=== PATIENT | female | born 1940 | race Caucasian/White ===

== ENCOUNTER 2024-02-09 14:51 | Emergency (ER) | payer MEDICARE, BC, SELFPAY ==
--- NOTE | ~2024-02-09 | US_ITS ---
EXAMINATION: US venous doppler LE RT DATE: 02/09/2024 15:53 INDICATION: Right lower limb swelling TECHNIQUE: Grayscale ultrasound images without and with compression and Doppler ultrasound images of the right lower extremity veins were obtained. COMPARISON: None. FINDINGS: The visualized portions of right common femoral vein, profunda (deep) femoral vein, femoral vein, pop liteal vein and greater saphenous vein outflow are patent. The right posterior tibial and peroneal ve ins at the calf were unable to be visualized. IMPRESSION: 1. No deep venous thrombosis at or above the knee in the right lower limb. Veins at the right calf w ere unable to be visualized. Reviewed, dictated and finalized at location A. IMPRESSION: 1. No deep venous thrombosis at or above the knee in the right lower limb. Vei ns at the right calf were unable to be visualized.
[2024-02-09 14:52] VITALS: BP 147/56; PULSE 71; RESP 18; O2SAT 100
--- NOTE | 2024-02-09 15:20 | ED.EXTPRO ---
HPI - Extremity Problem General Chief complaint: Extremity Problem,Nontraumatic Stated complaint: dvt eval in right leg History of Present Illness HPI Narrative: 83-year-old female presents to the ED via EMS from local assisted living facility for right leg swelling for approximately 1 week. 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 She is on Eliquis which she has been taking as directed and has not missed any doses. She is reporting some pain to the lower leg. Denies chest pain or shortness of breath, fever. Related Data Allergies Allergy/AdvReac Type Severity Reaction Status Date / Time No Known Allergies Allergy Verified 02/09/24 15:07 Review of Systems Review of Systems: All systems reviewed & are unremarkable except as noted in HPI and below Exam Narrative: GENERAL: Well-appearing, well-nourished, and in no acute distress. HEAD: Normocephalic, atraumatic ENT: Nares clear, no rhinorrhea or epistaxis. Mucous membranes moist. NECK: Supple. CHEST: Clear to auscultation. No respiratory distress. HEART: Regular rate and rhythm. No murmur heard. Normal peripheral pulses. EXTREMITIES: 2+ pitting edema to the right lower extremity with overlying erythema. No warmth. Tenderness to palpation. Pain to calf. DP pulse dopplered And strong. Cap refill approximately 3 seconds. Sensation intact. SKIN: See extremity exam NEURO: No focal deficits. Alert and oriented x3 Course Vital Signs Vital signs: Vital Signs Pulse Rate 71 02/09/24 14:52 Respiratory Rate 18 02/09/24 14:52 Blood Pressure 147/56 H 02/09/24 14:52 Pulse Oximetry 100 02/09/24 14:52 Oxygen Delivery Room Air 02/09/24 14:52 Pulse Rate 71 02/09/24 14:52 Respiratory Rate 18 02/09/24 14:52 Blood Pressure 147/56 H 02/09/24 14:52 Pulse Oximetry 100 02/09/24 14:52 Oxygen Delivery Room Air 02/09/24 14:52 MDM - Extremity (Nontraumatic) MDM Narrative Medical decision making narrative: 83-year-old female with history of DVT on Eliquis presents to the emergency department for right lower extremity swelling and pain for 1 week. vital stable. Exam significant for 2+ pitting edema, erythema tenderness to the lower extremity. She is neurovascularly intact. Will obtain basic lab work and lower extremity duplex. She denies chest pain or shortness of breath. She is not tachycardic or hypoxic, no tachypnea concerning for PE. CBC without leukocytosis or anemia. Chemistries with creatinine of 1.6 BUN of 35, no prior for comparison. Lower extremity duplex shows no DVT or above the knee in the right lower limb. Veins to the right calf are unable to be visualized. Per chart that came from assisted living facility, she is on 2.5 mg Eliquis b.i.d.. This dose is presumably for indefinite anticoagulation given recurrent DVT to this extremity vs acute tx of DVT that is reduced due to her age and Cr. Regardless, she is on appropriate therapy if there were an acute DVT found today. Will start her on Keflex due to possibility of overlying cellulitis. Encouraged close follow-up with her PCP. Strict ED return precautions discussed. She is agreeable to plan verbalized understanding. Discharged in stable condition. Lab Data 02/09/24 15:53 02/09/24 15:53 Labs: Lab Results 02/09/24 Range/Units 15:53 WBC 5.4 (4.5-10.0) K/mm3 RBC 4.76 (4.2-5.4) M/mm3 Hgb 14.4 (12.0-15.0) g/dL Hct 45.1 (37.0-47.0) % MCV 94.7 (80-100) fl MCH 30.3 (26-34) pg MCHC 31.9 L (32-36) g/dl RDW 15.8 H (11.5-14.5) % Plt Count 181 (150-375) k/mm3 MPV 9.3 (7.4-10.4) fl Immature Gran % (Auto) 0.6 H (0-0.5) % Neut % (Auto) 67.0 (45.5-73.1) % Lymph % (Auto) 17.8 L (18.3-44.2) % [place] % (Auto) 10.2 H (2.6-8.5) % Eos % (Auto) 3.3 (0-4.4) % Baso % (Auto) 1.1 (0.2-1.2) % Lymph # (Auto) 0.96 (0.9-3.2) K/mm3 [place] # (Auto) 0.6 (0.1-0.6) K/mm3 Eos # (Auto) 0.2 (0-
[2024-02-09 16:12] LABS: Basophils Absolute Auto 0.1 K/mm3 (0.0-0.1); Basophils Percent Auto 1.1 % (0.2-1.2); Eosinophils Absolute Auto 0.2 K/mm3 (0-0.3); Eosinophils Percent Auto 3.3 % (0-4.4); Hematocrit 45.1 % (37.0-47.0); Hemoglobin 14.4 g/dL (12.0-15.0); Immature Granulocyte Absolute 0.03 K/mm3 (0.00-0.031); Immature Granulocyte Percent A 0.6 % (0-0.5); Lymphocytes Absolute Auto 0.96 K/mm3 (0.9-3.2); Lymphocytes Percent Auto 17.8 % (18.3-44.2); Mean Corpuscular HGB Conc 31.9 g/dl (32-36); Mean Corpuscular Hemoglobin 30.3 pg (26-34); Mean Corpuscular Volume 94.7 fl (80-100); Mean Platelet Volume 9.3 fl (7.4-10.4); Monocytes Absolute Auto 0.6 K/mm3 (0.1-0.6); Monocytes Percent Auto 10.2 % (2.6-8.5); Neutrophils Absolute Auto 3.6 K/mm3 (1.3-6.7); Platelet Count Result 181 k/mm3 (150-375); Red Blood Count 4.76 M/mm3 (4.2-5.4); Red Cell Distribution Width 15.8 % (11.5-14.5); White Blood Count 5.4 K/mm3 (4.5-10.0)
[2024-02-09 16:24] LABS: INR 1.2; Prothrombin Time 15.6 Seconds (11.1-14.7)
[2024-02-09 16:25] LABS: Partial Thromboplastin Time 28.6 Seconds (22.3-36.8)
[2024-02-09 16:31] LABS: Anion Gap 8 mmol/L (4-12); Blood Urea Nitrogen 35 mg/dL (7-17); Calcium 9.1 mg/dL (8.4-10.2); Carbon Dioxide 29 mmol/L (22-30); Chloride 102 mmol/L (98-107); Estimated Glomerular Filt Rate 31; Glucose 73 mg/dL (65-110); Potassium 4.2 mmol/L (3.4-5.0); Sodium 139 mmol/L (137-145)
[2024-02-09] MEDS: CEPHALEXIN 500 MG CAPSULE PO (17:02)
[2024-02-09 17:03] VITALS: BP 95/62; PULSE 69; RESP 18; TEMP 36.8; O2SAT 99
== END 2024-02-09 17:31 ==
PROVIDERS: Emergency Provider Physician Assistant
DX: L03.116 Cellulitis of left lower limb (principal); Z86.718 Personal history of other venous thrombosis and embolism; Z79.01 Long term (current) use of anticoagulants
CPT/HCPCS: 36415; 80048; 85025; 85610; 85730; 93971; 99284; A9270

== ENCOUNTER 2024-03-20 16:09 | Inpatient (IN) | payer MEDICARE, BC, SELFPAY ==
[2024-03-20] VITALS (13 sets, daily range): BP systolic 103–163; BP diastolic 39–130; PULSE 70–78; RESP 22–36; TEMP 36.4; O2SAT 68–100
--- NOTE | ~2024-03-20 | CT_ITS ---
EXAMINATION: CTA chest PE protocol DATE: 03/20/2024 20:01 FILM SPLICER INDICATION: Hypoxia TECHNIQUE: Computed tomographic angiography (CTA) of the chest was performed with 100 mL Omnipaque-35 0 intravenous contrast. The dose-length product was 1053.28 mGy-cm. Maximum intensity projection 3D-r econstructions of the aorta and other arteries were constructed by the technologist on a separate wor kstation. Examination is markedly limited secondary to significant motion artifact. COMPARISON: None. FINDINGS: No filling defect is identified within the main or proximal pulmonary arteries. Reflux of intravenous contrast is identified into the hepatic veins, findings suggesting congestive f ailure. The main pulmonary artery is enlarged, suggesting pulmonary hypertension. Global enlarged of the heart is present. No pericardial effusion is noted. Prosthetic mitral ring. Groundglass perialveolar infiltrates identified bilaterally. Small bilateral pleural effusions. Abnormal contour to the posterior right hemidiaphragm, demonstrating soft tissue attenuation for whic h an underlying mass cannot be excluded. This abnormality measures 17 mm. Follow-up examination once acute episode has resolved is recommended. Sternal wires and mediastinal clips are identified. Significant degenerative disease is identified within the thoracic spine with lateral ankylosis, like ly representing diffuse idiopathic skeletal hyperostosis (DISH). IMPRESSION: No pulmonary embolus. Findings suggesting congestive failure and pulmonary hypertension. Groundglass perialveolar infiltrates suggesting significant pulmonary vascular congestion. Indeterminate focus within the right lung base (possibly artifactual) for which follow-up once acute respiratory episode has resolved is recommended. Reviewed, dictated and finalized at location A. SPLICER
--- NOTE | ~2024-03-20 | XR_ITS ---
XR chest 1V portable Ordering provider: Antonina Ashley MD History: 83 years Female with . sob x few days, hypoxia . Comparison: None. FINDINGS: MEDIASTINUM: The cardiac silhouette is slightly enlarged. Postoperative changes. Prominent both nate. LUNGS: No effusions or pneumothorax. Bilateral interstitial and alveolar opacification suggestive of pulmonary edema versus pneumonitis. Follow-up and clinical correlation is advised. OTHER: No free air under the diaphragm. IMPRESSION: Pulmonary edema versus pneumonia. Follow-up and clinical correlation advised. Reviewed, dictated and finalized at location A. R BEAM MACHINE OPERATOR
--- NOTE | ~2024-03-20 | XR_ITS ---
Portable chest x-ray Comparison: 03/20/2024 Clinical History: Infiltrate Findings: There is improvement in patchy haziness since prior exam. Questionable underlying COPD. C ardiomediastinal silhouette is stable, with loop recorder. Bones and soft tissues are unremarkable. Impression: Interval improvement in patchy pulmonary haziness. Possible underlying COPD. Stable cardiomegaly, with a loop recorder. Reviewed, dictated and finalized at location M. STARTER Impression: Interval improvement in patchy pulmonary haziness. Possible underlying COPD. Stable cardiomegaly, with a loop recorder.
--- NOTE | 2024-03-20 16:24 | ECG_ITS ---
Test Date: 2024-03-20 16:27:34 Measurements Intervals [place] Rate: 69 P: 0 MN: 0 QRS: -78 QRSD: 209 T: 66 QT: 462 QTc: 498 Interpretive Statements ELECTRONIC VENTRICULAR PACEMAKER BASELINE ARTIFACT- I, II, III, AVR, AVL, AVF, V1-V6 NO FURTHER INTERPRETATION IS POSSIBLE ATYPICAL ECG No previous ECG available for comparison Electronically Signed On 03-20-2024 17:00:10 SPEEDOMETER MECHANIC by Ziyad Babb D.O.
--- NOTE | 2024-03-20 16:38 | ED.SOB ---
HPI - SOB/Dyspnea General Chief Complaint: Shortness of Breath/Dyspnea Stated Complaint: increased SOB Time Seen by Provider: 03/20/24 16:33 History of Present Illness HPI Narrative: 83-year-old female presenting with shortness of breath. Patient has been increasingly short of breath over the last few days but it became worse today. States that she has been using her nebulizer with temporary improvement. Denies any pain. Related Data Allergies Allergy/AdvReac Type Severity Reaction Status Date / Time No Known Allergies Allergy Verified 02/09/24 15:07 Review of Systems Review of Systems: All systems reviewed & are unremarkable except as noted in HPI and below Exam Narrative: GENERAL: Ill-appearing, pleasant cooperative HEAD: Normocephalic, atraumatic. EYES: PERRLA and EOMI. ENT: grossly unremarkable NECK: Supple. CHEST: severely diminished breath sounds bilaterally, saturating 89% on 10 L non-rebreather HEART: Regular rate and rhythm ABDOMEN: Soft, nontender, nondistended EXTREMITIES: Normal range of motion SKIN: Warm, dry, no rash. NEURO: No focal deficits. Alert and oriented x3. PSYCH: Normal mood and affect. Course Vital Signs Vital signs: Vital Signs Pulse Rate 71 03/20/24 16:07 Respiratory Rate 34 H 03/20/24 16:07 Blood Pressure 140/63 03/20/24 16:07 Pulse Oximetry 96 03/20/24 16:07 Oxygen Delivery Nasal Cannula 03/20/24 16:07 Oxygen Flow Rate 7 03/20/24 16:07 Temperature 97.6 F 03/20/24 20:35 Pulse Rate 77 03/20/24 20:35 Respiratory Rate 25 H 03/20/24 20:35 Blood Pressure 117/39 L 03/20/24 20:35 Pulse Oximetry 100 03/20/24 20:35 Oxygen Delivery BiPAP 03/20/24 19:51 Oxygen Flow Rate 15 03/20/24 16:45 MDM - SOB/Dyspnea MDM Narrative Medical decision making narrative: 83-year-old female presenting with shortness of breath. Patient is hypoxic on arrival, saturating upper 80s on 10 L nasal cannula. EKG per my interpretation shows normal sinus rhythm, Ventricular pacemaker,no ST elevations or depressions. Workup is concerning for lactic acid of 2.2. Patient is positive for COVID-19. ProBNP is nearly 4000. Troponin is undetectable. CTA of the chest shows no evidence of pulmonary embolus. There are ground-glass opacities bilaterally as well as evidence of pulmonary hypertension. On re-evaluation, the patient is resting comfortably. She is comfortable on the BiPAP and denies current complaints. Discussed the workup and recommendation for admission, she is agreeable with this. Spoke with the advanced practice provider who feels patient can be admitted to IMU as she is improving on the BiPAP, her mental status is normal, she has no evidence of hypercarbia. He did request Decadron and remdesivir as well as another dose of Lasix which has all been ordered. spoke with the hospitalist who has accepted her for admission. Differential Diagnosis Differential diagnosis: Likely congestive heart failure, community acquired pneumonia, pulmonary embolism and other ( COVID) Medical Records Attestation: I reviewed the patient's medical records. Lab Data Attestation: I reviewed the patient's lab results. 03/20/24 16:47 03/20/24 16:47 Labs: Lab Results 03/20/24 03/20/24 03/20/24 Range/Units 16:47 16:56 20:07 WBC 9.3 (4.5-10.0) K/mm3 RBC 5.31 (4.2-5.4) M/mm3 Hgb 16.3 H (12.0-15.0) g/dL Hct 50.2 H (37.0-47.0) % MCV 94.5 (80-100) fl MCH 30.7 (26-34) pg MCHC 32.5 (32-36) g/dl RDW 15.0 H (11.5-14.5) % Plt Count 179 (150-375) k/mm3 MPV 9.6 (7.4-10.4) fl Immature Gran % (Auto) 0.3 (0-0.5) % Neut % (Auto) 84.3 H (45.5-73.1) % Lymph % (Auto) 7.3 L (18.3-44.2) % [place] % (Auto) 6.3 (2.6-8.5) % Eos % (Auto) 1.2 (0-4.4) % Baso % (Auto) 0.6 (0.2-1.2) % Lymph # (Auto) 0.68 L (0.9-3.2) K/mm3 [place] # (Auto) 0.6 (0.1-0.6) K/mm3 Eos # (Auto) 0.1 (0-0.3) K/mm3 Baso # (Auto) 0.1 (0.0-0.1) K/mm3 Abs Immat Gran (auto) 0.03 (0.00-0.031) K/mm3 Absolute Neuts (auto) 7.8 H (1.3-6.7) K/mm3 Absolute Nucleated RBC 0.000 (0.0-0.012) K/mm3 Nucleated RBC % 0.0 (0.0-0.2) % PT 15.3 H (11.1-14.7) Seconds INR 1.2 APTT 28.5 (22.3-36.8) Seconds Methemoglobin 0.3 (0-1.5) %THb Expiratory Pressure CMH2O Inspiratory Pressure CMH2O Sodium 141 (137-145) mmol/L Potassium 4.3 (3.4-5.0) mmol/L Chloride 99 (98-107) mmol/L Carbon Dioxide 32 H (22-30) mmol/L Anion Gap 10 (4-12) mmol/L BUN 27 H (7-17) mg/dL Creatinine 1.20 H (0.7-1.0) mg/dL Estim Creat Clear Calc 35 ml/min Estimated GFR 43 L (59 - ) Glucose 137 H (65-110) mg/dL Lactic Acid 2.1 H 2.2 H (0.7-2.0) mmol/L Calcium 9.8 (8.4-10.2) mg/dL Magnesium 2.2 (1.6-2.3) mg/dL Total Bilirubin 1.1 (0.2-1.3) mg/dL AST 51 H (14-36) U/L ALT 45 H (6-35) U/L Alkaline Phosphatase 106 (38-126) U/L Troponin I < 0.012 (0.000-0.034) ng/mL NT-Pro-B Natriuret Pep 3930 H (19.9-100) pg/mL Total Protein 8.0 (6.3-8.2) g/dL Albumin 4.3 (3.5-5.1) g/dL Influenza A (RT-PCR) Negative (Negative) Influenza B (RT-PCR) Negative (Negative) SARS-CoV-2 RNA (RT-PCR) Positive A (Negative) 03/20/24 03/20/24 Range/Units 20:21 21:08 WBC (4.5-10.0) K/mm3 RBC (4.2-5.4) M/mm3 Hgb (12.0-15.0) g/dL Hct (37.0-47.0) % MCV (80-100) fl MCH (26-34) pg MCHC (32-36) g/dl RDW (11.5-14.5) % Plt Count (150-375) k/mm3 MPV (7.4-10.4) fl Immature Gran % (Auto) (0-0.5) % Neut % (Auto) (45.5-73.1) % Lymph % (Auto) (18.3-44.2) % [place] % (Auto) (2.6-8.5) % Eos % (Auto) (0-4.4) % Baso % (Auto) (0.2-1.2) % Lymph # (Auto) (0.9-3.2) K/mm3 [place] # (Auto) (0.1-0.6) K/mm3 Eos # (Auto) (0-0.3) K/mm3 Baso # (Auto) (0.0-0.1) K/mm3 Abs Immat Gran (auto) (0.00-0.031) K/mm3 Absolute Neuts (auto) (1.3-6.7) K/mm3 Absolute Nucleated RBC (0.0-0.012) K/mm3 Nucleated RBC % (0.0-0.2) % PT (11.1-14.7) Seconds INR APTT (22.3-36.8) Seconds Methemoglobin 0.3 (0-1.5) %THb Expiratory Pressure 6 CMH2O Inspiratory Pressure 12 CMH2O Sodium (137-145) mmol/L Potassium (3.4-5.0) mmol/L Chloride (98-107) mmol/L Carbon Dioxide (22-30) mmol/L Anion Gap (4-12) mmol/L BUN (7-17) mg/dL Creatinine (0.7-1.0) mg/dL Estim Creat Clear Calc ml/min Estimated GFR (59 - ) Glucose (65-110) mg/dL Lactic Acid (0.7-2.0) mmol/L Calcium (8.4-10.2) mg/dL Magnesium (1.6-2.3) mg/dL Total Bilirubin (0.2-1.3) mg/dL AST (14-36) U/L ALT (6-35) U/L Alkaline Phosphatase (38-126) U/L Troponin I 0.013 (0.000-0.034) ng/mL NT-Pro-B Natriuret Pep (19.9-100) pg/mL Total Protein (6.3-8.2) g/dL Albumin (3.5-5.1) g/dL Influenza A (RT-PCR) (Negative) Influenza B (RT-PCR) (Negative) SARS-CoV-2 RNA (RT-PCR) (Negative) ABG Data ABG results: 03/20/24 03/20/24 16:56 21:08 Puncture Site Left radial Left radial ABG pH 7.493 H 7.461 H ABG pCO2 33.2 L 32.7 L ABG pO2 199.8 H 129.4 H ABG PO2/FiO2 Ratio 2.00 2.88 ABG HCO3 24.9 22.8 ABG O2 Saturation 99.5 98.8 ABG O2 Content 23.5 H 21.3 ABG Base Excess 2.3 -0.2 A-a Gradient 480.0 154.3 Oxyhemoglobin 98.4 97.7 Carboxyhemoglobin 1.0 1.0 Reduced Hemoglobin 0.3 1.0 Total Hemoglobin 16.7 15.4 O2 Delivery Device Non-rebreather mask Non-invasive vent O2 Liters/Min 15.0 Not Reportable Vent Rate Not Reportable FiO2 100 45 Imaging Data Radiologist's impression: ITS Impressions Chest X-Ray 03/20/24 16:47 IMPRESSION: Pulmonary edema versus pneumonia. Follow-up and clinical correlation advised. Chest CTA 03/20/24 20:01 IMPRESSION: No pulmonary embolus. Findings suggesting congestive failure and pulmonary hypertension. Groundglass perialveolar infiltrates suggesting significant pulmonary vascular congestion. Indeterminate focus within the right lung base (possibly artifactual) for which follow-up once acute respiratory episode has resolved is recommended. Critical Care Time Critical Care Time Critical Care Time: Yes Total Critical Care Time: 35 Discharge Plan Discharge Clinical Impression: COVID-19, Congestive heart failure, Acute hypoxic respiratory failure Patient Disposition: Still a Patient Condition: Serious
[2024-03-20 16:55] LABS: Basophils Absolute Auto 0.1 K/mm3 (0.0-0.1); Basophils Percent Auto 0.6 % (0.2-1.2); Eosinophils Absolute Auto 0.1 K/mm3 (0-0.3); Eosinophils Percent Auto 1.2 % (0-4.4); Hematocrit 50.2 % (37.0-47.0); Hemoglobin 16.3 g/dL (12.0-15.0); Immature Granulocyte Absolute 0.03 K/mm3 (0.00-0.031); Immature Granulocyte Percent A 0.3 % (0-0.5); Lymphocytes Absolute Auto 0.68 K/mm3 (0.9-3.2); Lymphocytes Percent Auto 7.3 % (18.3-44.2); Mean Corpuscular HGB Conc 32.5 g/dl (32-36); Mean Corpuscular Hemoglobin 30.7 pg (26-34); Mean Corpuscular Volume 94.5 fl (80-100); Mean Platelet Volume 9.6 fl (7.4-10.4); Monocytes Absolute Auto 0.6 K/mm3 (0.1-0.6); Monocytes Percent Auto 6.3 % (2.6-8.5); Neutrophils Absolute Auto 7.8 K/mm3 (1.3-6.7); Neutrophils Percent Auto 84.3 % (45.5-73.1); Platelet Count Result 179 k/mm3 (150-375); Red Blood Count 5.31 M/mm3 (4.2-5.4); White Blood Count 9.3 K/mm3 (4.5-10.0)
--- NOTE | 2024-03-20 17:04 | PC.NURSE ---
Asked patient if she had any family that we could call and let know that she is here in the ED. Patient said no, that it's too early they're not off of work yet. when asked again if we can call the family member she shook her head no.
--- NOTE | 2024-03-20 17:05 | PC.NURSE ---
report given to Sabiha NUGENT at bedside. patient alert and oriented, in respiratory distress.
[2024-03-20 17:07] LABS: Base Excess ABG 2.3 mEq/l (+/-2.0); Fractional Inspired Oxygen 100 %; HCO3 ABG 24.9 mEq/l (22.0-26.0); Methemoglobin ABG 0.3 %THb (0-1.5); Oxygen Content ABG 23.5 %vol (16.0-22.0); Oxygen Saturation ABG 99.5 % (95.0-100.0); Oxyhemoglobin 98.4 % THb (90.0-100.0); PCO2 ABG 33.2 mmHg (35.0-45.0); PO2 ABG 199.8 mmHg (80.0-100.0); Reduced Hemoglobin 0.3 %THb (0-5.0); Total Hemoglobin 16.7 g/dL (12.0-18.0); pH ABG 7.493 (7.350-7.450)
[2024-03-20 17:07] LABS: Lactic Acid Reflex 2.1 mmol/L (0.7-2.0); Magnesium 2.2 mg/dL (1.6-2.3)
[2024-03-20 17:08] LABS: Device NON-REBREATHER MASK; Modified Allen's Test Pass; Site Drawn LEFT RADIAL
[2024-03-20 17:15] LABS: INR 1.2; Prothrombin Time 15.3 Seconds (11.1-14.7)
[2024-03-20] MEDS: IPRATROPIUM BR 0.02% INH SOLN 0.5 MG/2.5 ML VIAL INHALATION (17:15)
[2024-03-20] MEDS: ALBUTEROL SULFATE NEB 2.5 MG/3 ML INH 10 MG INHALATION (17:15)
[2024-03-20 17:16] LABS: Partial Thromboplastin Time 28.5 Seconds (22.3-36.8)
[2024-03-20 17:17] LABS: Alanine Aminotransferase 45 U/L (6-35); Albumin Level 4.3 g/dL (3.5-5.1); Alkaline Phosphatase 106 U/L (38-126); Anion Gap 10 mmol/L (4-12); Aspartate Amino Transferase 51 U/L (14-36); Bilirubin,Total 1.1 mg/dL (0.2-1.3); Blood Urea Nitrogen 27 mg/dL (7-17); Calcium 9.8 mg/dL (8.4-10.2); Carbon Dioxide 32 mmol/L (22-30); Chloride 99 mmol/L (98-107); Estimated CRCL calculation 35 ml/min; Estimated Glomerular Filt Rate 43; Glucose 137 mg/dL (65-110); Potassium 4.3 mmol/L (3.4-5.0); Sodium 141 mmol/L (137-145)
[2024-03-20 17:20] LABS: NT Pro B Type Natriuretic Pept 3930 pg/mL (19.9-100); Troponin I < 0.012 ng/mL (0.000-0.034)
[2024-03-20 17:32] LABS: Influenza A QL RT-PCR Negative (Negative); Influenza B QL RT-PCR Negative (Negative); SARS-CoV-2 RNA PCR Positive (Negative)
--- NOTE | 2024-03-20 19:47 | ECG_ITS ---
Test Date: 2024-03-20 20:07:16 Measurements Intervals [place] Rate: 77 P: 0 TN: 0 QRS: -82 QRSD: 214 T: 86 QT: 473 QTc: 537 Interpretive Statements ELECTRONIC VENTRICULAR PACEMAKER BASELINE ARTIFACT- I, II, III, AVR, AVL, V1-V2 NO FURTHER INTERPRETATION IS POSSIBLE ATYPICAL ECG Compared to ECG 03/20/2024 16:27:34 No significant changes Electronically Signed On 03-21-2024 06:09:41 SPORTS MEDICINE PHYSICIAN by Ziyad Babb D.O.
[2024-03-20 19:53] LABS: Reflex Lactic Acid Yes or No Add Lactic
[2024-03-20 20:32] LABS: Lactic Acid 2.2 mmol/L (0.7-2.0)
[2024-03-20] MEDS: FUROSEMIDE INJ 40 MG/4 ML VIAL IV PUSH (20:33)
[2024-03-20 20:55] LABS: Troponin I 0.013 ng/mL (0.000-0.034)
[2024-03-20] MEDS: dexAMETHasone SOD PHOS INJ 10 MG/ML 1 ML VIAL IV PUSH (21:16)
[2024-03-20 21:33] LABS: Alveolar/Arterial O2 Gradient 154.3 mmHg; Base Excess ABG -0.2 mEq/l (+/-2.0); Fractional Inspired Oxygen 45 %; HCO3 ABG 22.8 mEq/l (22.0-26.0); Methemoglobin ABG 0.3 %THb (0-1.5); Oxygen Content ABG 21.3 %vol (16.0-22.0); Oxygen Saturation ABG 98.8 % (95.0-100.0); Oxyhemoglobin 97.7 % THb (90.0-100.0); PCO2 ABG 32.7 mmHg (35.0-45.0); PO2 ABG 129.4 mmHg (80.0-100.0); PO2 FiO2 Ratio Arterial Blood 2.88 %; Total Hemoglobin 15.4 g/dL (12.0-18.0); pH ABG 7.461 (7.350-7.450)
[2024-03-20 21:34] LABS: Device NON-INVASIVE VENT; Modified Allen's Test Pass; Non-Invasive Expiratory Pressure 6 CMH2O; Non-Invasive Inspiratory Pressure 12 CMH2O; Site Drawn LEFT RADIAL
[2024-03-20] MEDS: REMDESIVIR 200 MG/NS 250 ML 200 MG/250 ML BAG 250 MG IVPB (21:35)
--- NOTE | 2024-03-20 22:25 | P.HP_ITS ---
H&P: HPI History of Present Illness Date/Time: 03/20/24 22:25 Chief Complaint: sob Narrative: This is an 83-year-old female with past medical history significant for heart disease, atrial fibrillation, type diabetes mellitus, insulin-dependent. Patient was brought to the emergency room due to shortness of breath over the last several days progressively gotten worse. In emergency room patient was placed on BiPAP. Preliminary workup was significant for patient tested positive for COVID chest x-ray showed infiltrates. At the time of my visit patient is on BiPAP XR chest 1V portable Ordering provider: Antonina Ashley MD History: 83 years Female with . sob x few days, hypoxia . Comparison: None. FINDINGS: MEDIASTINUM: The cardiac silhouette is slightly enlarged. Postoperative changes. Prominent both nate. LUNGS: No effusions or pneumothorax. Bilateral interstitial and alveolar opacification suggestive of pulmonary edema versus pneumonitis. Follow-up and clinical correlation is advised. OTHER: No free air under the diaphragm. IMPRESSION: Pulmonary edema versus pneumonia. Follow-up and clinical correlation advised. EXAMINATION: CTA chest PE protocol DATE: 03/20/2024 20:01 DESK REPRESENTATIVE INDICATION: Hypoxia TECHNIQUE: Computed tomographic angiography (CTA) of the chest was performed with 100 mL Omnipaque-350 intravenous contrast. The dose-length product was 1053.28 mGy-cm. Maximum intensity projection 3D-reconstructions of the aorta and other arteries were constructed by the technologist on a separate workstation. Examination is markedly limited secondary to significant motion artifact. COMPARISON: None. FINDINGS: No filling defect is identified within the main or proximal pulmonary arteries. Reflux of intravenous contrast is identified into the hepatic veins, findings suggesting congestive failure. The main pulmonary artery is enlarged, suggesting pulmonary hypertension. Global enlarged of the heart is present. No pericardial effusion is noted. Prosthetic mitral ring. Groundglass perialveolar infiltrates identified bilaterally. Small bilateral pleural effusions. Abnormal contour to the posterior right hemidiaphragm, demonstrating soft tissue attenuation for which an underlying mass cannot be excluded. This abnormality measures 17 mm. Follow-up examination once acute episode has resolved is recommended. Sternal wires and mediastinal clips are identified. 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 IMPRESSION: No pulmonary embolus. Findings suggesting congestive failure and pulmonary hypertension. Groundglass perialveolar infiltrates suggesting significant pulmonary vascular congestion. Indeterminate focus within the right lung base (possibly artifactual) for which follow-up once acute respiratory episode has resolved is recommended. Review of Systems Review of Systems: ROS unobtainable: Yes other (on BiPAP) [facility] Social History Social History Smoking status: Never smoker Do You Feel Safe in your Home?: Yes Lack of Transportation: No Lack of Food: Never True Current Housing: I Have Housing Concerned About Future Housing: No Difficulty Paying Gas/Electric Bills: No Difficulty Paying for Meds: No Currently Unemployed: No Education: High School Diploma/GED Difficulty w/ Childcare or Family Care: No Spiritual care concerns: No Meds Home Medications and Allergies Home Medications Medication Instructions Recorded Confirmed Type apixaban 2.5 mg tablet (Eliquis) 2.5 mg PO BID 03/20/24 03/20/24 History atorvastatin 80 mg tablet 80 mg PO HS 03/20/24 03/20/24 History betamethasone dipropionate 0.05 % 1 applic topical DAILY 03/20/24 03/20/24 History lotion clopidogrel 75 mg tablet 75 mg PO DAILY 03/20/24 03/20/24 History diphenhydramine 25 2 tablet PO HS 03/20/24 03/20/24 History mg-acetaminophen 500 mg tablet (Acetaminophen PM) empagliflozin 25 mg tablet 25 mg PO DAILY 03/20/24 03/20/24 History (Jardiance) furosemide 20 mg tablet 20 mg PO DAILY 03/20/24 03/20/24 History insulin degludec 200 unit/mL (3 22 unit subcut DAILY 03/20/24 03/20/24 History mL) subcutaneous pen loratadine 10 mg tablet (Allergy 10 mg PO HS 03/20/24 03/20/24 History Relief (loratadine)) metoprolol succinate 100 mg 100 mg PO BID 03/20/24 03/20/24 History tablet,extended release 24 hr miscellaneous medical supply 03/20/24 03/20/24 History (Ocusoft Eyelid Cleansing Pads) xfkzhzkk-utxjaap-kmpp-lutein tablet 1 tablet PO DAILY 03/20/24 03/20/24 History multivitamin with minerals 1 tablet PO DAILY 03/20/24 03/20/24 History (Hair,Skin and Nails tablet) sacubitril 24 mg-valsartan 26 mg 1 tablet PO BID 03/20/24 03/20/24 History tablet (Entresto) Allergies Allergy/AdvReac Type Severity Reaction Status Date / Time No Known Allergies Allergy Verified 02/09/24 15:07 Vital Signs Vital Signs - 24 hr 03/20/24 16:07 03/20/24 16:25 03/20/24 16:25 Temperature Pulse Rate 71 71 Respiratory Rate 34 H 31 H Blood Pressure 140/63 140/63 Pulse Oximetry 96 99 88 L Oxygen Delivery Nasal Cannula Nasal Cannula Oxygen Flow Rate 7 10 03/20/24 16:40 03/20/24 16:45 03/20/24 17:21 Temperature Pulse Rate 70 Respiratory Rate 34 H Blood Pressure Pulse Oximetry 93 68 L 97 Oxygen Delivery High Flow Nasal Cannula Non-Rebreather Mask Oxygen Flow Rate 12 15 03/20/24 17:25 03/20/24 17:31 03/20/24 17:58 Temperature Pulse Rate 70 70 72 Respiratory Rate 34 H 36 H Blood Pressure 163/130 H Pulse Oximetry 97 Oxygen Delivery Oxygen Flow Rate 03/20/24 18:37 03/20/24 19:51 03/20/24 20:35 Temperature 97.6 F Pulse Rate 78 77 Respiratory Rate 28 H 25 H Blood Pressure 117/39 L Pulse Oximetry 100 94 100 Oxygen Delivery BiPAP BiPAP Oxygen Flow Rate Exam Narrative: Laying in a stretcher Const: General: comfortable, no acute distress, well developed, ill appearing acutely and average body habitus Nutritional Appearance: average body habitus Orientation/consciousness: patient obtunded and lethargic Other: Patient is on BiPAP HENMT: Head: normal to inspection, normocephalic and atraumatic Ears: hearing grossly normal bilaterally Face/Nose/Sinus: normal facial exam Face and sinus: normal facial exam Eyes: General: appearance normal, both eyes and all related structures Pupils: Equal, round and reactive pupils present EOM: EOMs intact bilaterally Neck: Neck: full ROM, no lymphadenopathy and no JVD Thyroid: thyroid normal Lymphatic: no lymphadenopathy noted Resp: Effort & Inspection: normal respiratory effort and able to speak in complete sentences Auscultation: clear to auscultation bilaterally Cardio: Jugular venous distension: no JVD Rate: regular rate Rhythm: regular rhythm Heart sounds: S1 normal heart sound present and S2 normal heart sound present GI: GI Palp: Yes Soft to palpation and Yes No hepatosplenomegaly present : General: Yes deferred Skin: Rashes: no rashes Wounds: no wounds Neuro: General: patient oriented x3 and CN's II-XI intact bilaterally Cranial nerves: Yes CN's II-XII intact bilaterally and Yes Equal, round and reactive pupils present Cognition (Neuro): normal cognition Speech: normal speech Gait exam (Neuro): Unable to assess gait Motor exam (neuro): 5/5 motor strength present throughout Extrem: General: normal to inspection, full ROM, no joint enlargement and no pedal edema H&P: Results Labs Labs: Short CBC 03/20/24 Range/Units 16:47 WBC 9.3 (4.5-10.0) K/mm3 Hgb 16.3 H (12.0-15.0) g/dL Hct 50.2 H (37.0-47.0) % Plt Count 179 (150-375) k/mm3 BMP 03/20/24 16:47 Sodium 141 Potassium 4.3 Chloride 99 Carbon Dioxide 32 H BUN 27 H Creatinine 1.20 H Glucose 137 H Calcium 9.8 Cardiac Enzymes 03/20/24 03/20/24 Range/Units 16:47 20:21 Troponin I < 0.012 0.013 (0.000-0.034) ng/mL Liver Function 03/20/24 Range/Units 16:47 Total Bilirubin 1.1 (0.2-1.3) mg/dL AST 51 H (14-36) U/L ALT 45 H (6-35) U/L Alkaline Phosphatase 106 (38-126) U/L Albumin 4.3 (3.5-5.1) g/dL Assessment and Plan Assessment and plan (1) COVID-19: Code(s): U07.1 - COVID-19 Status: Acute Assessment and Plan: Admit to IMU Started on Remdesivir Supportive care (2) Congestive heart failure: Code(s): I50.9 - Heart failure, unspecified Status: Acute Assessment and Plan: Daily intake and output (3) Acute hypoxic respiratory failure: Code(s): J96.01 - Acute respiratory failure with hypoxia Status: Acute Assessment and Plan: On BiPAP (4) T2DM (type 2 diabetes mellitus): Code(s): E11.9 - Type 2 diabetes mellitus without complications Status: Acute Assessment and Plan: Continue home meds Currently NPO (5) Cardiomyopathy: Code(s): I42.9 - Cardiomyopathy, unspecified Status: Acute Assessment and Plan: Holding Entresto restart when clinically able patient was hypotensive in emergency room Plan Repeat chest x-ray in a.m. if worsening infiltrates or persistent infiltrates consider starting antibiotics Hospitalist MIPS Advance Care Plan I have confirmed that the patient's Advanced Care Plan is present, code status is documented, or surrogate decision maker is listed in patient medical record.: Yes Medication Reconciliation I have utilized all available resources to obtain, update and review the patients current medications (includes all prescriptions, OTC, herbals, ca nnabis, and nutritional supplements).: Yes
--- NOTE | 2024-03-20 22:37 | ECG_ITS ---
Test Date: 2024-03-20 22:50:04 Measurements Intervals [place] Rate: 75 P: 0 SD: 0 QRS: -79 QRSD: 201 T: 85 QT: 468 QTc: 524 Interpretive Statements ELECTRONIC VENTRICULAR PACEMAKER BASELINE ARTIFACT- V1-V3 NO FURTHER INTERPRETATION IS POSSIBLE ATYPICAL ECG Compared to ECG 03/20/2024 20:07:16 No significant changes Electronically Signed On 03-21-2024 06:10:13 CONSOLE MANAGER by Ziyad Babb D.O.
[2024-03-20 23:08] LABS: Troponin I 0.021 ng/mL (0.000-0.034)
--- NOTE | 2024-03-20 23:48 | PC.NURSE ---
RN obtained past medical history from patient's son, Steven. Patient was very drowsy and difficult to arouse to complete admission questions. Med list was sent from assisted living facility and entered accordingly.
[2024-03-21] VITALS (22 sets, daily range): BP systolic 109–156; BP diastolic 29–74; PULSE 70–83; RESP 16–24; TEMP 36.5–37.1; O2SAT 92–100; BMI 41.8
--- NOTE | 2024-03-21 00:07 | ADMGEN ---
This patient, Lizabeth Perry, was admitted to IMU Room 212-01. Patient/family oriented to hospital policies and general routines including ID bracelet, bed and alarms, visiting hours, pain management, procedures, bathroom and other care routines, personal items, smoking policy, room service/diet, and visiting hours. Information on how to activate the Rapid Response Team has been discussed. Patient/Family are encouraged to report perceived risks to care and to ask questions if they do not understand what they are told or what they should do.
[2024-03-21] MEDS: FUROSEMIDE INJ 40 MG/4 ML VIAL IV PUSH ×2 (02:11→14:39)
[2024-03-21 07:58] LABS: Glucose Point of Care 179 mg/dl (65-105)
[2024-03-21] MEDS: APIXABAN 2.5 MG TABLET PO ×2 (08:45→20:30)
[2024-03-21] MEDS: EMPAGLIFLOZIN 25 MG TABLET PO (08:45)
[2024-03-21] MEDS: CLOPIDOGREL BISULFATE 75 MG TABLET PO (08:45)
--- NOTE | 2024-03-21 09:58 | P.PNIM_ITS ---
Progress Note: A&P Assessment and Plan (1) COVID-19: Code(s): U07.1 - COVID-19 Status: Acute Assessment and Plan: Patient reports with exertional dyspnea and productive cough. Denies fever, chills, or body aches. Pulse ox was 68% on room air. Patient initially required 15 L high-flow, transition of BiPAP, and now on 2 L nasal cannula * COVID positive on admission * Patient was started on remdesivir given new oxygen requirement, added Decadron * Contact, droplet precautions * DuoNeb scheduled q.6 * Tylenol as needed for fever, body aches (2) Congestive heart failure: Code(s): I50.9 - Heart failure, unspecified Status: Acute Assessment and Plan: Patient had complaints of lower extremity swelling right greater than left, chest x-ray shows pulmonary edema. Chest CTA chest shows findings consistent with congestive failure and pulmonary hypertension. No pulmonary embolism seen. Patient is chronically on Lasix 20 mg daily, metoprolol succinate 100 mg b.i.d., Entresto 24-26 mg p.o. b.i.d., and Jardiance 25 mg daily * BNP 3930 on admission * New oxygen requirement * Patient received IV Lasix 40 mg b.i.d. on 03/20 * Continue with IV Lasix 40 mg daily today * Chest x-ray shows some improvement, lungs are clear on exam * Resume Entresto, metoprolol, Jardiance * Strict I&O, daily weight (3) Acute hypoxic respiratory failure: Code(s): J96.01 - Acute respiratory failure with hypoxia Status: Acute Assessment and Plan: Patient was setting 60% on room air. Initially was on 15 L then transition to BiPAP. Now she is on 2 L nasal cannula. * Likely secondary to COVID verses congestive heart failure exacerbation versus less likely bacteria pneumonia * Pulmonary embolism was ruled out, CTA was negative * White count is normal, procal normal, CRP 1.4, no concerns for pneumonia on imaging. * Continuous pulse ox. Maintain saturation greater than 92%. Wean oxygen as tolerated. * BiPAP at HS, 12/6, rate of 16 (4) T2DM (type 2 diabetes mellitus): Code(s): E11.9 - Type 2 diabetes mellitus without complications Status: Acute Assessment and Plan: Patient with a history of diabetes normally on insulin degludec 20 units daily. * Unknown A1c, add for a.m. labs * A.c. HS Accu-Cheks, hypoglycemia protocol * Lantus 19 units, high-dose SSI * Diabetic diet Plan PT/OT consulted for discharge planning as patient is from an assisted living. Subjective Date/time seen: 03/21/24 09:58 Interval history: Patient is seen resting in bed on 2 L nasal cannula. She does not appear in acute distress. She denies headache, dizziness, chest pain, abdominal pain, nausea, vomiting, constipation, diarrhea. She reports shortness of breath with exertion. She has a productive cough with yellow thin sputum. She denies fever, chills, or body aches. She seems to be a little confused at times. She asked me to call her son and let him know that she was hospitalized because she did think he was aware. When I call spoke with him he said he was here with her at the emergency room for a few hours last night. Review of Systems Review of Systems: All systems reviewed & are unremarkable except as noted in HPI and below ROS unobtainable: Yes other (on BiPAP) Exam Narrative: General: appears comfortable, in no acute distress, on 2 L nasal cannula Respiratory: breathing is unlabored with even chest rise/fall, lungs are clear and diminished without wheezing, rhonchi, crackles Cardiovascular: Rate and rhythm regular, normal s1s2, no murmur Abdomen: Soft, round, non-tender, active bowel sounds Extremities: No cyanosis, trace bilateral lower extremity edema +1, clubbing. Pulses 2/2 Neuro: A&O x 3 Skin: Warm, dry, intact Objective Data Vital Signs Vital Signs: Vital Signs - 24 hr 03/20/24 16:07 03/20/24 16:25 03/20/24 16:25 Temperature Pulse Rate 71 71 Respiratory Rate 34 H 31 H Blood Pressure 140/63 140/63 Pulse Oximetry 96 99 88 L Oxygen Delivery Nasal Cannula Nasal Cannula Oxygen Flow Rate 7 10 Fraction of Inspired Oxygen 03/20/24 16:40 03/20/24 16:45 03/20/24 17:21 Temperature Pulse Rate 70 Respiratory Rate 34 H Blood Pressure Pulse Oximetry 93 68 L 97 Oxygen Delivery High Flow Nasal Cannula Non-Rebreather Mask Oxygen Flow Rate 12 15 Fraction of Inspired Oxygen 03/20/24 17:25 03/20/24 17:31 03/20/24 17:58 Temperature Pulse Rate 70 70 72 Respiratory Rate 34 H 36 H Blood Pressure 163/130 H Pulse Oximetry 97 Oxygen Delivery Oxygen Flow Rate Fraction of Inspired Oxygen 03/20/24 18:37 03/20/24 19:51 03/20/24 20:35 Temperature 97.6 F Pulse Rate 78 77 Respiratory Rate 28 H 25 H Blood Pressure 117/39 L Pulse Oximetry 100 94 100 Oxygen Delivery BiPAP BiPAP Oxygen Flow Rate Fraction of Inspired Oxygen 03/20/24 22:51 03/21/24 00:10 03/21/24 00:10 Temperature 97.6 F Pulse Rate 75 70 Respiratory Rate 22 H Blood Pressure 103/40 L Pulse Oximetry 100 Oxygen Delivery BiPAP Oxygen Flow Rate Fraction of Inspired Oxygen 35 03/21/24 00:10 03/20/24 23:00 03/21/24 02:00 Temperature 98.7 F Pulse Rate 71 71 70 Respiratory Rate 24 H 28 H Blood Pressure 114/29 L Pulse Oximetry 99 Oxygen Delivery BiPAP Oxygen Flow Rate Fraction of Inspired Oxygen 03/21/24 04:00 03/21/24 04:00 03/21/24 04:35 Temperature 98.6 F Pulse Rate 70 70 Respiratory Rate 21 H Blood Pressure 126/42 L Pulse Oximetry 100 Oxygen Delivery BiPAP Oxygen Flow Rate Fraction of Inspired Oxygen 35 03/21/24 05:17 03/21/24 06:00 03/21/24 05:40 Temperature Pulse Rate 70 76 Respiratory Rate 23 H Blood Pressure Pulse Oximetry 97 100 Oxygen Delivery BiPAP Nasal Cannula Oxygen Flow Rate 3 Fraction of Inspired Oxygen 03/21/24 08:00 03/21/24 08:00 03/21/24 08:00 Temperature 98.1 F Pulse Rate 72 71 Respiratory Rate 24 H Blood Pressure 109/30 L Pulse Oximetry 93 100 Oxygen Delivery Nasal Cannula Oxygen Flow Rate 2 Fraction of Inspired Oxygen Intake/Output Intake/Output: Intake & Output 03/19/24 03/19/24 03/20/24 03/21/24 00:59 23:59 23:59 23:59 Intake Total 250 50 Output Total 500 Balance 250 -450 Meds/Results Medications: Active Medications Generic Name Dose Route Start Last Admin Trade Name Freq PRN Reason Stop Dose Admin Apixaban 2.5 mg 03/21/24 09:00 03/21/24 08:45 Apixaban 2.5 Mg Tablet PO 2.5 mg Q12HR JAIME Administration Atorvastatin Calcium 80 mg 03/21/24 21:00 Atorvastatin 40 Mg Tablet PO HS JAIME Clopidogrel Bisulfate 75 mg 03/21/24 09:00 03/21/24 08:45 Clopidogrel Bisulfate 75 Mg Tablet PO 75 mg DAILY JAIME Administration Empagliflozin 25 mg 03/21/24 09:00 03/21/24 08:45 Empagliflozin 25 Mg Tablet PO 25 mg DAILY JAIME Administration Miscellaneous Information 1 each 03/21/24 00:01 03/20/24 23:13 Order Clarification XX 04/20/24 00:00 1 each CLARIFY JAIME Administration Miscellaneous Information 0 each 03/21/24 00:01 Insulin Degludec 200unit/Ml Nonform Can Pt Bring From Home? XX 04/20/24 00:00 CLARIFY JAIME Non-Formulary Medication 22 unit 03/21/24 09:00 Insulin Degludec SUB-Q 04/20/24 08:59 DAILY JAIME Perflutren Lipid Microsphere 0 ml 03/21/24 06:20 Perflutren Lipid Microspheres 1.5 Ml Vial Diluted To 10 Ml Total Volume IV PUSH 03/24/24 06:20 ONCE PRN adequate visualization Protocol Radiology Results: ITS Impressions Chest CTA 03/20/24 20:01 IMPRESSION: No pulmonary embolus. Findings suggesting congestive failure and pulmonary hypertension. Groundglass perialveolar infiltrates suggesting significant pulmonary vascular congestion. Indeterminate focus within the right lung base (possibly artifactual) for which follow-up once acute respiratory episode has resolved is recommended. Chest X-Ray 03/21/24 06:33 Impression: Interval improvement in patchy pulmonary haziness. Possible underlying COPD. Stable cardiomegaly, with a loop recorder. Labs Labs: Laboratory Results - last 24 hr 03/20/24 03/20/24 03/20/24 16:47 16:56 20:07 WBC 9.3 RBC 5.31 Hgb 16.3 H Hct 50.2 H MCV 94.5 MCH 30.7 MCHC 32.5 RDW 15.0 H Plt Count 179 MPV 9.6 Immature Gran % (Auto) 0.3 Neut % (Auto) 84.3 H Lymph % (Auto) 7.3 L [place] % (Auto) 6.3 Eos % (Auto) 1.2 Baso % (Auto) 0.6 Lymph # (Auto) 0.68 L [place] # (Auto) 0.6 Eos # (Auto) 0.1 Baso # (Auto) 0.1 Abs Immat Gran (auto) 0.03 Absolute Neuts (auto) 7.8 H Absolute Nucleated RBC 0.000 Nucleated RBC % 0.0 PT 15.3 H INR 1.2 APTT 28.5 Puncture Site Left radial ABG pH 7.493 H ABG pCO2 33.2 L ABG pO2 199.8 H ABG PO2/FiO2 Ratio 2.00 ABG HCO3 24.9 ABG O2 Saturation 99.5 ABG O2 Content 23.5 H ABG Base Excess 2.3 A-a Gradient 480.0 Oxyhemoglobin 98.4 Carboxyhemoglobin 1.0 Methemoglobin 0.3 Reduced Hemoglobin 0.3 Total Hemoglobin 16.7 O2 Delivery Device Non-rebreather mask O2 Liters/Min 15.0 Vent Rate FiO2 100 Expiratory Pressure Inspiratory Pressure Sodium 141 Potassium 4.3 Chloride 99 Carbon Dioxide 32 H Anion Gap 10 BUN 27 H Creatinine 1.20 H Estim Creat Clear Calc 35 Estimated GFR 43 L Glucose 137 H POC Capillary Glucose Lactic Acid 2.1 H 2.2 H Calcium 9.8 Magnesium 2.2 Total Bilirubin 1.1 AST 51 H ALT 45 H Alkaline Phosphatase 106 Troponin I < 0.012 NT-Pro-B Natriuret Pep 3930 H Total Protein 8.0 Albumin 4.3 Influenza A (RT-PCR) Negative Influenza B (RT-PCR) Negative SARS-CoV-2 RNA (RT-PCR) Positive A 03/20/24 03/20/24 03/20/24 20:21 21:08 22:41 WBC RBC Hgb Hct MCV MCH MCHC RDW Plt Count MPV Immature Gran % (Auto) Neut % (Auto) Lymph % (Auto) [place] % (Auto) Eos % (Auto) Baso % (Auto) Lymph # (Auto) [place] # (Auto) Eos # (Auto) Baso # (Auto) Abs Immat Gran (auto) Absolute Neuts (auto) Absolute Nucleated RBC Nucleated RBC % PT INR APTT Puncture Site Left radial ABG pH 7.461 H ABG pCO2 32.7 L ABG pO2 129.4 H ABG PO2/FiO2 Ratio 2.88 ABG HCO3 22.8 ABG O2 Saturation 98.8 ABG O2 Content 21.3 ABG Base Excess -0.2 A-a Gradient 154.3 Oxyhemoglobin 97.7 Carboxyhemoglobin 1.0 Methemoglobin 0.3 Reduced Hemoglobin 1.0 Total Hemoglobin 15.4 O2 Delivery Device Non-invasive vent O2 Liters/Min Not Reportable Vent Rate Not Reportable FiO2 45 Expiratory Pressure 6 Inspiratory Pressure 12 Sodium Potassium Chloride Carbon Dioxide Anion Gap BUN Creatinine Estim Creat Clear Calc Estimated GFR Glucose POC Capillary Glucose Lactic Acid Calcium Magnesium Total Bilirubin AST ALT Alkaline Phosphatase Troponin I 0.013 0.021 D NT-Pro-B Natriuret Pep Total Protein Albumin Influenza A (RT-PCR) Influenza B (RT-PCR) SARS-CoV-2 RNA (RT-PCR) 03/21/24 07:50 WBC RBC Hgb Hct MCV MCH MCHC RDW Plt Count MPV Immature Gran % (Auto) Neut % (Auto) Lymph % (Auto) [place] % (Auto) Eos % (Auto) Baso % (Auto) Lymph # (Auto) [place] # (Auto) Eos # (Auto) Baso # (Auto) Abs Immat Gran (auto) Absolute Neuts (auto) Absolute Nucleated RBC Nucleated RBC % PT INR APTT Puncture Site ABG pH ABG pCO2 ABG pO2 ABG PO2/FiO2 Ratio ABG HCO3 ABG O2 Saturation ABG O2 Content ABG Base Excess A-a Gradient Oxyhemoglobin Carboxyhemoglobin Methemoglobin Reduced Hemoglobin Total Hemoglobin O2 Delivery Device O2 Liters/Min Vent Rate FiO2 Expiratory Pressure Inspiratory Pressure Sodium Potassium Chloride Carbon Dioxide Anion Gap BUN Creatinine Estim Creat Clear Calc Estimated GFR Glucose POC Capillary Glucose 179 H Lactic Acid Calcium Magnesium Total Bilirubin AST ALT Alkaline Phosphatase Troponin I NT-Pro-B Natriuret Pep Total Protein Albumin Influenza A (RT-PCR) Influenza B (RT-PCR) SARS-CoV-2 RNA (RT-PCR) Quality VTE Prophylaxis VTE prophylaxis: pharmacologic ordered
[2024-03-21 10:50] LABS: Basophils Percent Auto 0.2 % (0.2-1.2); Hematocrit 49.1 % (37.0-47.0); Hemoglobin 15.9 g/dL (12.0-15.0); Immature Granulocyte Absolute 0.01 K/mm3 (0.00-0.031); Immature Granulocyte Percent A 0.2 % (0-0.5); Lymphocytes Percent Auto 11.3 % (18.3-44.2); Mean Corpuscular HGB Conc 32.4 g/dl (32-36); Mean Corpuscular Hemoglobin 30.6 pg (26-34); Mean Corpuscular Volume 94.4 fl (80-100); Mean Platelet Volume 9.6 fl (7.4-10.4); Monocytes Absolute Auto 0.3 K/mm3 (0.1-0.6); Neutrophils Absolute Auto 4.4 K/mm3 (1.3-6.7); Neutrophils Percent Auto 82.3 % (45.5-73.1); Platelet Count Result 162 k/mm3 (150-375); Red Cell Distribution Width 15.2 % (11.5-14.5); White Blood Count 5.3 K/mm3 (4.5-10.0)
[2024-03-21 11:05] LABS: Alanine Aminotransferase 39 U/L (6-35); Albumin Level 4.1 g/dL (3.5-5.1); Alkaline Phosphatase 91 U/L (38-126); Anion Gap 12 mmol/L (4-12); Aspartate Amino Transferase 48 U/L (14-36); Bilirubin,Total 0.9 mg/dL (0.2-1.3); Blood Urea Nitrogen 34 mg/dL (7-17); Calcium 9.5 mg/dL (8.4-10.2); Carbon Dioxide 31 mmol/L (22-30); Chloride 98 mmol/L (98-107); Estimated Glomerular Filt Rate 36; Glucose 144 mg/dL (65-110); Potassium 4.3 mmol/L (3.4-5.0); Sodium 141 mmol/L (137-145)
[2024-03-21] MEDS: dexAMETHasone SOD PHOS INJ 10 MG/ML 1 ML VIAL 6 MG IV PUSH (11:22)
[2024-03-21 11:50] LABS: Procalcitonin 0.3 ng/mL
[2024-03-21 12:47] LABS: Glucose Point of Care 147 mg/dl (65-105)
[2024-03-21 14:05] LABS: CRP 1.4 mg/dL (<1.0)
[2024-03-21 15:35] LABS: Hemoglobin A1C 6.9 % (<5.7)
[2024-03-21 16:28] LABS: Glucose Point of Care 360 mg/dl (65-105)
[2024-03-21] MEDS: INSULIN ASPART (*BKC) 100 UNITS/ML SUB-Q (17:34)
[2024-03-21] MEDS: INSULIN GLARGINE (*BKC) 100 UNITS/ML 19 UNITS SUB-Q (20:29)
[2024-03-21] MEDS: LORATADINE 10 MG TABLET PO (20:30)
[2024-03-21] MEDS: SACUBITRIL/VALSARTAN 24-26 MG TABLET 1 TAB PO (20:30)
[2024-03-21] MEDS: ATORVASTATIN 40 MG TABLET 80 MG PO (20:30)
[2024-03-21] MEDS: METOPROLOL SUCCINATE EXT REL 100 MG TABCR PO (20:30)
[2024-03-21] MEDS: REMDESIVIR 100 MG/NS 250 ML 100 MG/250 ML BAG 250 MG IVPB (20:31)
[2024-03-21] MEDS: ACETAMINOPHEN 325 MG TABLET 650 MG PO (20:34)
[2024-03-21 20:48] LABS: Glucose Point of Care 282 mg/dl (65-105)
[2024-03-21] MEDS: IPRATROPIUM 0.5 MG/ALBUTEROL SULFATE 2.5 MG AMPUL.NEB 3 ML INHALATION (20:48)
[2024-03-22] VITALS (27 sets, daily range): BP systolic 96–159; BP diastolic 32–65; PULSE 70–124; RESP 16–20; TEMP 36.3–36.8; O2SAT 91–98
--- NOTE | 2024-03-22 | ECHO_ITS ---
Patient Info Name: Lizabeth Perry Age: 83 years : 1940 Gender: Female Ht: 59 in Wt: 215 lbs BSA: 2.08 m2 HR: 86 bpm BP: 125 / 43 mmHg Heart Rhythm: Paced Technical Quality: Fair Exam Date: 03/22/2024 11:42 AM Exam Location: Echo Lab Patient Status: Inpatient Admit Date: 03/20/2024 Staff Ordering Physician: Nikki Soto MD Detonator Assembler: Sybil Banks RDCS Attending Provider: Sophia Ngo APRN Referring Physician: Brittany LINDA; Exam Type: CA echo dop color flow w con Study Info Indications - sob Complete two-dimensional, color flow and Doppler transthoracic echocardiogram is performed with contrast to opacify the left ventricle and to improve the deliniation of the left ventricle endocardial borders. Summary 1. Left ventricular chamber dimension is mildly enlarged. 2. There is mildly increased left ventricular wall thickness. 3. Left ventricular systolic function is normal, estimated at 60-65%. 4. Right ventricular systolic function is normal. 5. Left atrial chamber dimension is severely enlarged. 6. Right atrial chamber dimension is mildly enlarged. 7. There is mild to moderate aortic valve stenosis with a peak velocity of 323.11 cm/s, mean gradient of 26 mmHg, and aortic valve area of 1.61 cm2. 8. There is moderate aortic valve regurgitation. 9. 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 10. 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 11. There is mild tricuspid valve regurgitation. Left Ventricle Left ventricular chamber dimension is mildly enlarged. Left ventricular systolic function is normal, estimated at 60-65%. There is mildly increased left ventricular wall thickness. Left ventricular septal wall motion is abnormal with septal motion related to pacing. The left ventricular diastolic function is indeterminate. Right Ventricle Right ventricular chamber dimension is normal. Right ventricular systolic function is normal. Left Atria Left atrial chamber dimension is severely enlarged. Right Atria Right atrial chamber dimension is mildly enlarged. Atrial Septum Intact interatrial septum visualized by color flow imaging. Aortic Valve The aortic valve is not well visualized. There is mild to moderate aortic valve stenosis with a peak velocity of 323.11 cm/s, mean gradient of 26 mmHg, and aortic valve area of 1.61 cm2. There is moderate aortic valve regurgitation. Pulmonic Valve The pulmonic valve is not well visualized. 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 Tricuspid Valve There is mild tricuspid valve regurgitation. Pericardium/Pleural There is no pericardial effusion. Inferior Vena Cava Inferior vena cava is not well visualized. Aorta The aortic root size at the sinus of Valsalva is normal. Left Ventricular Outflow Tract Name Value Normal LVOT 2D LVOT Diameter 1.88 cm LVOT Doppler LVOT Peak Velocity 175.32 cm/s LVOT Peak Gradient 6 mmHg LVOT Mean Gradient 3 mmHg LVOT VTI 43.80 cm LVOT VTI/AV VTI Ratio 0.58 LVOT Stroke Volume 121.24 ml LVOT CO 5.82 l/min LVOT CI 2.81 L/min/m2 Pulmonic Valve Name Value Normal PV Doppler PV Peak Velocity 86.79 cm/s PV Peak Gradient 3 mmHg Mitral Valve Name Value Normal MV Doppler MV Peak Gradient 25 mmHg MV Mean Gradient 9 mmHg MV Decel [place] 389.03 cm/s2 MV PHT 0 s MV Area (PHT) 1.59 cm2 4.00-5.00 MV Area (Cont Eq VTI) 1.45 cm2 MV Regurgitation Doppler MR Peak Gradient 78 mmHg MV Diastolic Function MV E Peak Velocity 186.04 cm/s MV Decel Time 0 s MV Annular TDI MV Septal e' Velocity 4.69 cm/s >=8.00 MV E/e' (Septal) 39.67 <=8.00 MV Lateral e' Velocity 2.92 cm/s >=10.00 MV E/e' (Lateral) 63.68 <=8.00 MV e' Average 3.81 MV E/e' (Average) 51.68 Tricuspid Valve Name Value Normal TV Regurgitation Doppler TR Peak Velocity 233.46 cm/s TR Peak Gradient 16 mmHg Estimated PAP/RSVP RV Systolic Pressure 26 mmHg <36 TV Annular TDI TV Lateral Bernie s' Velocity 12.28 cm/s 9.50-18.70 Aortic Valve Name Value Normal AV Doppler AV Peak Velocity 323.11 cm/s AV Peak Gradient 39 mmHg AV Mean Gradient 26 mmHg AV VTI 75.56 cm AV Area (Cont Eq VTI) 1.61 cm2 >=3.00 AV Area (Cont Eq Mikey) 1.50 cm2 AV V1/V2 Ratio 0.54 AV Regurgitation 2D LVOT Area 2.77 cm2 AV Regurgitation Doppler AR Decel Time 1 s AR Decel [place] 262.77 cm/s2 AR PHT 0 s Ventricles Name Value Normal LV Dimensions 2D/MM IVS Diastolic Thickness (2D) 1.00 cm 0.60-1.00 LVID Diastole (2D) 6.08 cm 3.80-5.20 LVIW Diastolic Thickness (2D) 0.97 cm 0.60-0.90 LVID Systole (2D) 3.92 cm 2.20-3.50 LVOT Diameter 1.88 cm LV Mass (2D Cubed) 248.16 g 67.00-162.00 LV Mass Index (2D Cubed) 0.01 g/cm2 0.00-0.01 Relative Wall Thickness (2D) 0.32 LV Fractional Shortening/Ejection Fraction 2D/MM LV Fractional Shortening (2D) 35 % 27-45 LV EF (2D Teicholz) 64 % 54-74 LV Diastolic Volume (4C MOD) 91.37 ml LV EF (4C MOD) 54 % LV Diastolic Volume (2C MOD) 105.04 ml LV EF (2C MOD) 61 % LV Diastolic Volume (BP MOD) 102.16 ml 46.00-106.00 LV Diastolic Volume Index (BP MOD) 0.05 l/m2 0.03-0.06 LV Systolic Volume (BP MOD) 41.35 ml 14.00-42.00 LV Systolic Volume Index (BP MOD) 0.02 l/m2 0.01-0.02 LV EF (BP MOD) 60 % 54-74 LV Diastolic Length (4C) 6.69 cm LV Systolic Length (4C) 6.05 cm LV Stroke Volume (4C MOD) 49.44 ml Atria Name Value Normal LA Dimensions LA Volume (4C A-L) 60.68 ml LA Volume (BP A-L) 88.57 ml RA Dimensions RA Area (4C) 15.25 cm2 <=18.00 Report Signatures
[2024-03-22] MEDS: IPRATROPIUM 0.5 MG/ALBUTEROL SULFATE 2.5 MG AMPUL.NEB 3 ML INHALATION ×4 (02:48→20:17)
[2024-03-22 04:31] LABS: Basophils Percent Auto 0.3 % (0.2-1.2); Hematocrit 42.9 % (37.0-47.0); Hemoglobin 14.4 g/dL (12.0-15.0); Immature Granulocyte Absolute 0.02 K/mm3 (0.00-0.031); Immature Granulocyte Percent A 0.3 % (0-0.5); Lymphocytes Absolute Auto 0.82 K/mm3 (0.9-3.2); Lymphocytes Percent Auto 11.9 % (18.3-44.2); Mean Corpuscular HGB Conc 33.6 g/dl (32-36); Mean Corpuscular Hemoglobin 30.8 pg (26-34); Mean Corpuscular Volume 91.9 fl (80-100); Mean Platelet Volume 9.5 fl (7.4-10.4); Monocytes Absolute Auto 0.9 K/mm3 (0.1-0.6); Monocytes Percent Auto 12.5 % (2.6-8.5); Neutrophils Absolute Auto 5.2 K/mm3 (1.3-6.7); Platelet Count Result 155 k/mm3 (150-375); Red Blood Count 4.67 M/mm3 (4.2-5.4); Red Cell Distribution Width 15.2 % (11.5-14.5); White Blood Count 6.9 K/mm3 (4.5-10.0)
[2024-03-22 04:53] LABS: Alanine Aminotransferase 31 U/L (6-35); Albumin Level 3.5 g/dL (3.5-5.1); Alkaline Phosphatase 78 U/L (38-126); Anion Gap 9 mmol/L (4-12); Aspartate Amino Transferase 39 U/L (14-36); Bilirubin,Total 0.6 mg/dL (0.2-1.3); Blood Urea Nitrogen 50 mg/dL (7-17); Calcium 8.8 mg/dL (8.4-10.2); Carbon Dioxide 29 mmol/L (22-30); Chloride 98 mmol/L (98-107); Estimated Glomerular Filt Rate 36; Glucose 151 mg/dL (65-110); Magnesium 2.1 mg/dL (1.6-2.3); Potassium 3.5 mmol/L (3.4-5.0); Sodium 136 mmol/L (137-145)
[2024-03-22 07:32] LABS: Glucose Point of Care 168 mg/dl (65-105)
--- NOTE | 2024-03-22 08:21 | P.PNIM_ITS ---
Progress Note: A&P Assessment and Plan (1) Acute hypoxic respiratory failure: Code(s): J96.01 - Acute respiratory failure with hypoxia Status: Acute Assessment and Plan: Patient was setting 60% on room air. Initially was on 15 L then transition to BiPAP. Now she is on 2 L nasal cannula. * Likely secondary to COVID verses congestive heart failure exacerbation versus less likely bacteria pneumonia * Pulmonary embolism was ruled out, CTA was negative * White count is normal, procal normal, CRP 1.4, no concerns for pneumonia on imaging. * Continuous pulse ox. Maintain saturation greater than 92%. Wean oxygen as tolerated. * BiPAP at HS, 04/21, rate of 16 03/22/24: * OFF Bipap * weaned to 2 L NC * possible flash pulmonary symptoms improved with IV lasix and Bipap (2) COVID-19: Code(s): U07.1 - COVID-19 Status: Acute Assessment and Plan: Patient reports with exertional dyspnea and productive cough. Denies fever, chills, or body aches. Pulse ox was 68% on room air. Patient initially required 15 L high-flow, transition of BiPAP, and now on 2 L nasal cannula * COVID positive on admission * Patient was started on remdesivir given new oxygen requirement, added Decadron * Contact, droplet precautions * DuoNeb scheduled q.6 * Tylenol as needed for fever, body aches * Incentive spirometer (3) Congestive heart failure: Code(s): I50.9 - Heart failure, unspecified Status: Acute Assessment and Plan: Patient had complaints of lower extremity swelling right greater than left, chest x-ray shows pulmonary edema. Chest CTA chest shows findings consistent with congestive failure and pulmonary hypertension. No pulmonary embolism seen. Patient is chronically on Lasix 20 mg daily, metoprolol succinate 100 mg b.i.d., Entresto 24-26 mg p.o. b.i.d., and Jardiance 25 mg daily * BNP 3930 on admission * New oxygen requirement * Patient received IV Lasix 40 mg b.i.d. on 03/20 * Continue with IV Lasix 40 mg daily today * Chest x-ray shows some improvement, lungs are clear on exam * Resume Entresto, metoprolol, Jardiance * Strict I&O, daily weight * No previous echocardiogram/echocardiogram pending * IV Lasix daily (4) T2DM (type 2 diabetes mellitus): Code(s): E11.9 - Type 2 diabetes mellitus without complications Status: Acute Assessment and Plan: Patient with a history of diabetes normally on insulin degludec 20 units daily. * Accu-Cheks a.c. HS * sliding scale insulin * resume patient's home long-acting * Hemoglobin A1c 6.9 * Diabetic diet * Optimize Ezequiel inhibitors and statins. * Watch for hypoglycemia/hypoglycemic protocol ordered Plan Code status: Full code per patient DVT prophylaxis: Eliquis Stress ulcer prophylaxis: Protonix 40 daily PT/OT notes: PT/OT pending currently living in assisted living Disposition: Patient continues admission for treatment of acute respiratory failure with hypoxia secondary to CHF exacerbation and COVID-19 infection will continue with current treatment patient may need home O2 walk study prior to discharge if unable to wean off of oxygen. Patient is new to the area and needs to be established with a chute feeder will review echocardiogram. Time Spent With Patient Time with patient: 15 - 25 minutes Subjective Date/time seen: 03/22/24 08:21 Interval history: Patient is a 83 year old female admitted for acute respiratory failure with hypoxia secondary to COVID infection CHF exacerbation. 03/22/24: Assumed Care Patient in no acute distressed weaned to 3L and stated her breathing and SOB has greatly improved. She denied any CP, N/V, fever or chills. Review of Systems Review of Systems: All systems reviewed & are unremarkable except as noted in HPI and below ROS unobtainable: Yes other (on BiPAP) Exam Narrative: General: appears comfortable, in no acute distress, on 2 L nasal cannula Respiratory: breathing is unlabored with even chest rise/fall, lungs are diminished LL Cardiovascular: Rate and rhythm regular, normal s1s2, no murmur Abdomen: Soft, round, non-tender, active bowel sounds Extremities: No cyanosis, trace bilateral lower extremity edema +1, clubbing. Pulses 2/2 Neuro: A&O x 3 Skin: Warm, dry, intact Objective Data Vital Signs Vital Signs: Vital Signs - 24 hr 03/21/24 10:08 03/21/24 10:00 03/21/24 12:00 Temperature Pulse Rate 71 Respiratory Rate Blood Pressure Pulse Oximetry 98 98 Oxygen Delivery Nasal Cannula Nasal Cannula Oxygen Flow Rate 2 2 03/21/24 12:00 03/21/24 12:00 03/21/24 14:00 Temperature 98.2 F Pulse Rate 70 74 73 Respiratory Rate 16 Blood Pressure 128/74 Pulse Oximetry 100 Oxygen Delivery Oxygen Flow Rate 03/21/24 16:00 03/21/24 16:00 03/21/24 16:00 Temperature 98.4 F Pulse Rate 81 83 Respiratory Rate 16 Blood Pressure 126/52 L Pulse Oximetry 97 97 Oxygen Delivery Nasal Cannula Oxygen Flow Rate 1 03/21/24 18:00 03/21/24 20:10 03/21/24 20:30 Temperature 98.7 F Pulse Rate 70 75 74 Respiratory Rate 16 Blood Pressure 156/70 H Pulse Oximetry 92 Oxygen Delivery Oxygen Flow Rate 03/21/24 20:49 03/21/24 20:52 03/21/24 20:00 Temperature Pulse Rate 74 Respiratory Rate 20 Blood Pressure Pulse Oximetry 96 92 Oxygen Delivery Nasal Cannula Nasal Cannula Oxygen Flow Rate 1 1 03/21/24 20:57 03/21/24 20:00 03/21/24 22:00 Temperature Pulse Rate 75 70 72 Respiratory Rate 20 Blood Pressure Pulse Oximetry Oxygen Delivery Oxygen Flow Rate 03/21/24 23:49 03/22/24 00:00 03/22/24 00:00 Temperature 97.7 F Pulse Rate 71 70 Respiratory Rate 16 Blood Pressure 150/70 H Pulse Oximetry 95 95 Oxygen Delivery Nasal Cannula Oxygen Flow Rate 1 03/22/24 02:00 03/22/24 02:49 03/22/24 02:59 Temperature Pulse Rate 72 75 81 Respiratory Rate 20 20 Blood Pressure Pulse Oximetry Oxygen Delivery Oxygen Flow Rate 03/22/24 03:40 03/22/24 04:00 03/22/24 04:00 Temperature 98.2 F Pulse Rate 72 77 Respiratory Rate 16 Blood Pressure 129/43 L Pulse Oximetry 91 91 Oxygen Delivery Nasal Cannula Oxygen Flow Rate 1 03/22/24 06:00 03/22/24 07:54 Temperature 97.4 F L Pulse Rate 75 105 H Respiratory Rate 20 Blood Pressure 96/65 L Pulse Oximetry 95 Oxygen Delivery Oxygen Flow Rate Intake/Output Intake/Output: Intake & Output 03/19/24 03/20/24 03/21/24 03/22/24 23:59 23:59 23:59 23:59 Intake Total 250 1510 550 Output Total 1301 300 Balance 250 209 250 Meds/Results Medications: Active Medications Generic Name Dose Route Start Last Admin Trade Name Freq PRN Reason Stop Dose Admin Acetaminophen 650 mg 03/21/24 14:42 03/21/24 20:34 Acetaminophen 325 Mg Tablet PO 650 mg Q4H PRN Administration Mild Pain (1-3) or Fever Albuterol/Ipratropium 3 ml 03/21/24 20:00 03/22/24 08:17 Ipratropium 0.5 Mg/Albuterol Sulfate 2.5 Mg Ampul.Neb 3 Ml INHALATION 3 ml Q6HRT JAIME Administration Apixaban 2.5 mg 03/21/24 09:00 03/21/24 20:30 Apixaban 2.5 Mg Tablet PO 2.5 mg Q12HR JAIME Administration Atorvastatin Calcium 80 mg 03/21/24 21:00 03/21/24 20:30 Atorvastatin 40 Mg Tablet PO 80 mg HS JAIME Administration Clopidogrel Bisulfate 75 mg 03/21/24 09:00 03/21/24 08:45 Clopidogrel Bisulfate 75 Mg Tablet PO 75 mg DAILY JAIME Administration Dexamethasone Sodium Phosphate 6 mg 03/21/24 11:00 03/21/24 11:22 Dexamethasone Sod Phos Inj 10 Mg/Ml 1 Ml Vial IV PUSH 03/30/24 09:01 6 mg DAILY JAIME Administration Dextrose 12.5 gm 03/21/24 12:24 Dextrose 50% 25 Gm/50 Ml Syringe IV PUSH PRN PRN Hypoglycemia Protocol Empagliflozin 25 mg 03/21/24 09:00 03/21/24 08:45 Empagliflozin 25 Mg Tablet PO 25 mg DAILY JAIME Administration Glucagon 1 mg 03/21/24 12:24 Glucagon For Inj 1 Mg Vial IM PRN PRN Hypoglycemia Protocol Glucose 15 gm 03/21/24 12:24 Glucose Oral Gel 15 Gm Of Glucse In 37.5 Gm Tube PO PRN PRN Hypoglycemia Protocol Remdesivir 100 mg in 250 mls @ 250 mls/hr 03/21/24 22:00 03/21/24 21:31 IVPB 03/24/24 22:59 Infused Q24H JAIME Infusion Dextrose 1,000 mls @ 100 mls/hr 03/21/24 12:24 Dextrose 5% 1,000 Ml IVPB PRN PRN Hypoglycemia Protocol Insulin Aspart 4 - 8 units 03/21/24 17:00 03/21/24 17:34 Insulin Aspart (*Bkc) 100 Units/Ml SUB-Q 8 units TIDWM JAIME Administration Protocol Insulin Glargine 19 units 03/21/24 21:00 03/21/24 20:29 Insulin Glargine (*Bkc) 100 Units/Ml 0.2 units/kg (19 units) 19 units SUB-Q Administration HS JAIME Loratadine 10 mg 03/21/24 21:00 03/21/24 20:30 Loratadine 10 Mg Tablet PO 10 mg HS JAIME Administration Metoprolol Succinate 100 mg 03/21/24 21:00 03/21/24 20:30 Metoprolol Succinate Ext Rel 100 Mg Tabcr PO 100 mg Q12HR JAIME Administration Perflutren Lipid Microsphere 0 ml 03/21/24 06:20 Perflutren Lipid Microspheres 1.5 Ml Vial Diluted To 10 Ml Total Volume IV PUSH 03/24/24 06:20 ONCE PRN adequate visualization Protocol Sacubitril/Valsartan 1 tab 03/21/24 21:00 03/21/24 20:30 Sacubitril/Valsartan 24-26 Mg Tablet PO 1 tab Q12HR JAIME Administration Radiology Results: ITS Impressions Chest CTA 03/20/24 20:01 IMPRESSION: No pulmonary embolus. Findings suggesting congestive failure and pulmonary hypertension. Groundglass perialveolar infiltrates suggesting significant pulmonary vascular congestion. Indeterminate focus within the right lung base (possibly artifactual) for which follow-up once acute respiratory episode has resolved is recommended. Chest X-Ray 03/21/24 06:33 Impression: Interval improvement in patchy pulmonary haziness. Possible underlying COPD. Stable cardiomegaly, with a loop recorder. Labs Labs: Laboratory Results - last 24 hr 03/21/24 03/21/24 03/21/24 10:36 12:37 15:16 WBC 5.3 RBC 5.20 Hgb 15.9 H Hct 49.1 H MCV 94.4 MCH 30.6 MCHC 32.4 RDW 15.2 H Plt Count 162 MPV 9.6 Immature Gran % (Auto) 0.2 Neut % (Auto) 82.3 H Lymph % (Auto) 11.3 L [place] % (Auto) 6.0 Eos % (Auto) 0.0 Baso % (Auto) 0.2 Lymph # (Auto) 0.60 L [place] # (Auto) 0.3 Eos # (Auto) 0.0 Baso # (Auto) 0.0 Abs Immat Gran (auto) 0.01 Absolute Neuts (auto) 4.4 Absolute Nucleated RBC 0.000 Nucleated RBC % 0.0 Sodium 141 Potassium 4.3 Chloride 98 Carbon Dioxide 31 H Anion Gap 12 BUN 34 H Creatinine 1.40 H Estim Creat Clear Calc Not Reportable Estimated GFR 36 L Glucose 144 H POC Capillary Glucose 147 H Hemoglobin A1c 6.9 H Calcium 9.5 Magnesium Total Bilirubin 0.9 AST 48 H ALT 39 H Alkaline Phosphatase 91 C-Reactive Protein 1.4 H Total Protein 8.0 Albumin 4.1 Procalcitonin 0.3 03/21/24 03/21/24 03/22/24 16:21 20:29 04:23 WBC 6.9 RBC 4.67 Hgb 14.4 Hct 42.9 MCV 91.9 MCH 30.8 MCHC 33.6 RDW 15.2 H Plt Count 155 MPV 9.5 Immature Gran % (Auto) 0.3 Neut % (Auto) 75.0 H Lymph % (Auto) 11.9 L [place] % (Auto) 12.5 H Eos % (Auto) 0.0 Baso % (Auto) 0.3 Lymph # (Auto) 0.82 L [place] # (Auto) 0.9 H Eos # (Auto) 0.0 Baso # (Auto) 0.0 Abs Immat Gran (auto) 0.02 Absolute Neuts (auto) 5.2 Absolute Nucleated RBC 0.000 Nucleated RBC % 0.0 Sodium 136 L Potassium 3.5 Chloride 98 Carbon Dioxide 29 Anion Gap 9 BUN 50 H D Creatinine 1.40 H Estim Creat Clear Calc Not Reportable Estimated GFR 36 L Glucose 151 H POC Capillary Glucose 360 H 282 H Hemoglobin A1c Calcium 8.8 Magnesium 2.1 Total Bilirubin 0.6 AST 39 H ALT 31 Alkaline Phosphatase 78 C-Reactive Protein Total Protein 7.0 Albumin 3.5 Procalcitonin 03/22/24 07:18 WBC RBC Hgb Hct MCV MCH MCHC RDW Plt Count MPV Immature Gran % (Auto) Neut % (Auto) Lymph % (Auto) [place] % (Auto) Eos % (Auto) Baso % (Auto) Lymph # (Auto) [place] # (Auto) Eos # (Auto) Baso # (Auto) Abs Immat Gran (auto) Absolute Neuts (auto) Absolute Nucleated RBC Nucleated RBC % Sodium Potassium Chloride Carbon Dioxide Anion Gap BUN Creatinine Estim Creat Clear Calc Estimated GFR Glucose POC Capillary Glucose 168 H Hemoglobin A1c Calcium Magnesium Total Bilirubin AST ALT Alkaline Phosphatase C-Reactive Protein Total Protein Albumin Procalcitonin Quality VTE Prophylaxis VTE prophylaxis: pharmacologic ordered -Patient's previous records reviewed on admission -ER notes reviewed in detail on admission -discussed all findings and current treatment plan with patient/Family/POA -Consultations reviewed for recommendations -Patient's disposition for safe discharge discussed with correctional casework specialist Dictation performed by [facility] [employer] direct speech recognition software, therefore spot man variants and typographical errors may occur. Hospitalist MIPS Advance Care Plan I have confirmed that the patient's Advanced Care Plan is present, code status is documented, or surrogate decision maker is listed in patient medical record.: Yes Medication Reconciliation I have utilized all available resources to obtain, update and review the patients current medications (includes all prescriptions, OTC, herbals, cannabis, and nutritional supplements).: Yes The patient is not eligible for med reconciliation; the patient is in a emergent medical situation where delaying treatment would jeopardize the patients health.: No
[2024-03-22] MEDS: SACUBITRIL/VALSARTAN 24-26 MG TABLET 1 TAB PO ×2 (09:10→20:23)
[2024-03-22] MEDS: CLOPIDOGREL BISULFATE 75 MG TABLET PO (09:10)
[2024-03-22] MEDS: METOPROLOL SUCCINATE EXT REL 100 MG TABCR PO ×2 (09:10→20:23)
[2024-03-22] MEDS: EMPAGLIFLOZIN 25 MG TABLET PO (09:10)
[2024-03-22] MEDS: APIXABAN 2.5 MG TABLET PO ×2 (09:10→20:24)
[2024-03-22] MEDS: dexAMETHasone SOD PHOS INJ 10 MG/ML 1 ML VIAL 6 MG IV PUSH (09:11)
--- NOTE | 2024-03-22 11:05 | PCOTNOTE ---
Attempted OT evaluation. Pt adamantly refused stating she just wanted to sleep.
[2024-03-22 11:33] LABS: Glucose Point of Care 267 mg/dl (65-105)
[2024-03-22] MEDS: INSULIN ASPART (*BKC) 100 UNITS/ML SUB-Q ×2 (11:55→17:23)
[2024-03-22] MEDS: PERFLUTREN LIPID MICROSPHERES 1.5 ML VIAL DILUTED TO 10 ML TOTAL VOLUME IV PUSH (12:10)
--- NOTE | 2024-03-22 12:37 | IVDEFINITY ---
Prior to administration of IV Definity the patient was educated on the risks and benefits of the imaging enhancing agent including potential adverse side effects. The patient verbalized understanding. Allergies were verified. No exclusion criteria were identified and at least one of the following inclusion criteria were met: 1) physician request, 2) patient technically difficult to image (per the [place] [employer] guidelines of two or more segments not discernable within the apical view), or 3) questionable left ventricular function. ?
[2024-03-22 15:47] LABS: Glucose Point of Care 344 mg/dl (65-105)
[2024-03-22] MEDS: FUROSEMIDE INJ 40 MG/4 ML VIAL IV PUSH (17:23)
[2024-03-22 20:01] LABS: Glucose Point of Care 328 mg/dl (65-105)
[2024-03-22] MEDS: INSULIN GLARGINE (*BKC) 100 UNITS/ML 19 UNITS SUB-Q (20:22)
[2024-03-22] MEDS: ATORVASTATIN 40 MG TABLET 80 MG PO (20:22)
[2024-03-22] MEDS: LORATADINE 10 MG TABLET PO (20:23)
[2024-03-22] MEDS: ACETAMINOPHEN 325 MG TABLET 650 MG PO (20:31)
[2024-03-22] MEDS: REMDESIVIR 100 MG/NS 250 ML 100 MG/250 ML BAG 250 MG IVPB (22:29)
[2024-03-23] VITALS (15 sets, daily range): BP systolic 115–148; BP diastolic 54–81; PULSE 70–83; RESP 14–20; TEMP 35.7–37.1; O2SAT 91–98
[2024-03-23] MEDS: IPRATROPIUM 0.5 MG/ALBUTEROL SULFATE 2.5 MG AMPUL.NEB 3 ML INHALATION ×3 (02:31→20:21)
[2024-03-23 05:26] LABS: Basophils Percent Auto 0.1 % (0.2-1.2); Hematocrit 44.4 % (37.0-47.0); Hemoglobin 14.6 g/dL (12.0-15.0); Immature Granulocyte Absolute 0.03 K/mm3 (0.00-0.031); Immature Granulocyte Percent A 0.4 % (0-0.5); Lymphocytes Absolute Auto 0.87 K/mm3 (0.9-3.2); Lymphocytes Percent Auto 10.9 % (18.3-44.2); Mean Corpuscular HGB Conc 32.9 g/dl (32-36); Mean Corpuscular Hemoglobin 30.5 pg (26-34); Mean Corpuscular Volume 92.9 fl (80-100); Monocytes Absolute Auto 0.7 K/mm3 (0.1-0.6); Neutrophils Absolute Auto 6.4 K/mm3 (1.3-6.7); Neutrophils Percent Auto 79.6 % (45.5-73.1); Platelet Count Result 164 k/mm3 (150-375); Red Blood Count 4.78 M/mm3 (4.2-5.4); Red Cell Distribution Width 14.8 % (11.5-14.5)
[2024-03-23 05:38] LABS: Alanine Aminotransferase 35 U/L (6-35); Albumin Level 3.6 g/dL (3.5-5.1); Alkaline Phosphatase 79 U/L (38-126); Anion Gap 8 mmol/L (4-12); Aspartate Amino Transferase 45 U/L (14-36); Bilirubin,Total 0.7 mg/dL (0.2-1.3); Blood Urea Nitrogen 50 mg/dL (7-17); Calcium 8.8 mg/dL (8.4-10.2); Carbon Dioxide 32 mmol/L (22-30); Chloride 97 mmol/L (98-107); Estimated Glomerular Filt Rate 33; Glucose 154 mg/dL (65-110); Magnesium 2.2 mg/dL (1.6-2.3); Potassium 4.1 mmol/L (3.4-5.0); Sodium 137 mmol/L (137-145)
[2024-03-23 07:52] LABS: Glucose Point of Care 134 mg/dl (65-105)
[2024-03-23] MEDS: APIXABAN 2.5 MG TABLET PO ×2 (09:03→21:22)
[2024-03-23] MEDS: SACUBITRIL/VALSARTAN 24-26 MG TABLET 1 TAB PO ×2 (09:03→21:22)
[2024-03-23] MEDS: EMPAGLIFLOZIN 25 MG TABLET PO (09:04)
[2024-03-23] MEDS: METOPROLOL SUCCINATE EXT REL 100 MG TABCR PO ×2 (09:04→21:21)
[2024-03-23] MEDS: CLOPIDOGREL BISULFATE 75 MG TABLET PO (09:04)
[2024-03-23] MEDS: dexAMETHasone SOD PHOS INJ 10 MG/ML 1 ML VIAL 6 MG IV PUSH (09:04)
[2024-03-23] MEDS: FUROSEMIDE INJ 40 MG/4 ML VIAL IV PUSH (09:04)
[2024-03-23] MEDS: INSULIN ASPART (*BKC) 100 UNITS/ML SUB-Q ×2 (11:55→16:40)
[2024-03-23 12:10] LABS: Glucose Point of Care 243 mg/dl (65-105)
--- NOTE | 2024-03-23 13:43 | PC.NURSE ---
This patient, Lizabeth Perry, was transferred to [[id number] ] on 03/23/24 at 1335. Personal belongings sent with patient. Report given to [JOVANNA Garcia @ [id number] ]. Appropriate documentation sent with patient. [id number] at bedside and aware of transfer.
--- NOTE | 2024-03-23 14:00 | P.PNIM_ITS ---
Progress Note: A&P Assessment and Plan (1) Acute hypoxic respiratory failure: Code(s): J96.01 - Acute respiratory failure with hypoxia Status: Acute Assessment and Plan: Patient was setting 60% on room air. Initially was on 15 L then transition to BiPAP. Now she is on 2 L nasal cannula. * Likely secondary to COVID verses congestive heart failure exacerbation versus less likely bacteria pneumonia * Pulmonary embolism was ruled out, CTA was negative * White count is normal, procal normal, CRP 1.4, no concerns for pneumonia on imaging. * Continuous pulse ox. Maintain saturation greater than 92%. Wean oxygen as tolerated. * BiPAP at HS, 04/21, rate of 16 03/22/24: * OFF Bipap * weaned to 2 L NC * possible flash pulmonary symptoms improved with IV lasix and Bipap 03/23: RA Last dose of remdesivir tonight Switched to Oral Dexamethasone (2) COVID-19: Code(s): U07.1 - COVID-19 Status: Acute Assessment and Plan: Patient reports with exertional dyspnea and productive cough. Denies fever, chills, or body aches. Pulse ox was 68% on room air. Patient initially required 15 L high-flow, transition of BiPAP, and now on 2 L nasal cannula * COVID positive on admission * Patient was started on remdesivir given new oxygen requirement, added Decadron * Contact, droplet precautions * DuoNeb scheduled q.6 * Tylenol as needed for fever, body aches * Incentive spirometer (3) Congestive heart failure: Code(s): I50.9 - Heart failure, unspecified Status: Acute Assessment and Plan: Patient had complaints of lower extremity swelling right greater than left, chest x-ray shows pulmonary edema. Chest CTA chest shows findings consistent with congestive failure and pulmonary hypertension. No pulmonary embolism seen. Patient is chronically on Lasix 20 mg daily, metoprolol succinate 100 mg b.i.d., Entresto 24-26 mg p.o. b.i.d., and Jardiance 25 mg daily * BNP 3930 on admission * New oxygen requirement * Patient received IV Lasix 40 mg b.i.d. on 03/20 * Continue with IV Lasix 40 mg daily today * Chest x-ray shows some improvement, lungs are clear on exam * Resume Entresto, metoprolol, Jardiance * Strict I&O, daily weight * No previous echocardiogram/echocardiogram pending * IV Lasix daily (4) T2DM (type 2 diabetes mellitus): Code(s): E11.9 - Type 2 diabetes mellitus without complications Status: Acute Assessment and Plan: Patient with a history of diabetes normally on insulin degludec 20 units daily. * Accu-Cheks a.c. HS * sliding scale insulin * resume patient's home long-acting * Hemoglobin A1c 6.9 * Diabetic diet * Optimize Ezequiel inhibitors and statins. * Watch for hypoglycemia/hypoglycemic protocol ordered Plan Code status: Full code per patient DVT prophylaxis: Eliquis Stress ulcer prophylaxis: Protonix 40 daily PT/OT notes: PT/OT pending currently living in assisted living Disposition: Patient continues admission for treatment of acute respiratory failure with hypoxia secondary to CHF exacerbation and COVID-19 infection will continue with current treatment patient may need home O2 walk study prior to discharge if unable to wean off of oxygen. Patient is new to the area and needs to be established with a sleeve baster will review echocardiogram. Subjective Date/time seen: 03/23/24 14:00 Interval history: Patient is currently doing well. Patient will receive the last dose of remdesivir tonight. Possible discharge tomorrow. Review of Systems Review of Systems: All systems reviewed & are unremarkable except as noted in HPI and below ROS unobtainable: Yes other (on BiPAP) Exam Narrative: General: appears comfortable, in no acute distress, on 2 L nasal cannula Respiratory: breathing is unlabored with even chest rise/fall, lungs are diminished LL Cardiovascular: Rate and rhythm regular, normal s1s2, no murmur Abdomen: Soft, round, non-tender, active bowel sounds Extremities: No cyanosis, trace bilateral lower extremity edema +1, clubbing. Pulses 2/2 Neuro: A&O x 3 Skin: Warm, dry, intact Const: General: comfortable, no acute distress, well developed, alert, awake, ill appearing acutely, lethargic, patient obtunded and average body habitus N utritional Appearance: average body habitus Orientation/consciousness: patient oriented x3, patient obtunded and lethargic Other: Patient is on BiPAP HENMT: Head: normal to inspection, normocephalic and atraumatic Ears: heari ng grossly normal bilaterally Face/Nose/Sinus: normal facial exam Face and sinus: normal facial exam Eyes: General: appearance normal, both eyes and all related structures Pupils: Equal, round and reactive pupils present EOM: EOMs intact bilaterally Neck: Neck: full ROM, no lymphadenopathy and no JVD Thyroid: thyroid normal Lymphatic: no lymphadenopathy noted Resp: Effort & Inspection: normal respiratory effort and able to speak in complete sentences Auscultation: clear to auscultation bilaterally Cardio: Jugular venous distension: no JVD Rate: regular rate Rhythm: regular rhythm Heart sounds: S1 normal heart sound present and S2 normal heart sound present : General: Yes deferred Skin: Rashes: no rashes Wounds: no wounds Neuro: General: patient oriented x3, CN's II-XI intact bilaterally, patient obtunded and Unable to assess gait Cranial nerves: Yes CN's II-XII intact bilaterally and Yes Equal, round and reactive pupils present Cognition (Neuro): normal cognition Speech: normal speech Gait exam (Neuro): Normal gait present and Unable to assess gait Motor exam (neuro): 5/5 motor strength present throughout Extrem: General: normal to inspection, full ROM, no joint enlargement and no pedal edema Objective Data Vital Signs Vital Signs: Vital Signs - 24 hr 03/22/24 14:20 03/22/24 14:34 03/22/24 16:09 Temperature 97.8 F Pulse Rate 74 76 86 Respiratory Rate 20 20 20 Blood Pressure 126/32 L Pulse Oximetry 98 Oxygen Delivery Fraction of Inspired Oxygen 03/22/24 16:00 03/22/24 18:00 03/22/24 20:13 Temperature 97.8 F Pulse Rate 71 74 73 Respiratory Rate 20 Blood Pressure 159/52 H Pulse Oximetry 98 Oxygen Delivery Fraction of Inspired Oxygen 03/22/24 20:17 03/22/24 20:29 03/22/24 20:23 Temperature Pulse Rate 72 74 78 Respiratory Rate 20 20 Blood Pressure Pulse Oximetry Oxygen Delivery Fraction of Inspired Oxygen 03/22/24 20:00 03/22/24 20:00 03/22/24 21:43 Temperature Pulse Rate 72 72 74 Respiratory Rate 20 Blood Pressure Pulse Oximetry 98 Oxygen Delivery Room Air Fraction of Inspired Oxygen 35 03/22/24 23:13 03/22/24 23:13 03/23/24 00:00 Temperature 98.4 F Pulse Rate 72 72 80 Respiratory Rate 20 20 Blood Pressure 148/62 H Pulse Oximetry 98 98 Oxygen Delivery Room Air Fraction of Inspired Oxygen 35 03/23/24 02:20 03/23/24 02:30 03/23/24 05:56 Temperature 98.7 F Pulse Rate 79 83 74 Respiratory Rate 20 20 20 Blood Pressure 130/66 Pulse Oximetry 93 Oxygen Delivery Fraction of Inspired Oxygen 03/23/24 02:00 03/23/24 04:00 03/23/24 04:00 Temperature Pulse Rate 72 72 72 Respiratory Rate 20 Blood Pressure Pulse Oximetry 93 Oxygen Delivery Room Air Fraction of Inspired Oxygen 35 03/23/24 06:00 03/23/24 07:27 03/23/24 07:27 Temperature Pulse Rate 70 73 Respiratory Rate 18 Blood Pressure Pulse Oximetry 95 Oxygen Delivery Room Air Fraction of Inspired Oxygen 03/23/24 08:17 03/23/24 09:04 03/23/24 08:00 Temperature 97.5 F L Pulse Rate 71 81 70 Respiratory Rate 20 Blood Pressure 135/61 Pulse Oximetry 95 Oxygen Delivery Fraction of Inspired Oxygen 03/23/24 08:00 03/23/24 11:32 Temperature Pulse Rate Respiratory Rate Blood Pressure Pulse Oximetry Oxygen Delivery Room Air Room Air Fraction of Inspired Oxygen Intake/Output Intake/Output: Intake & Output 03/20/24 03/21/24 03/22/24 03/23/24 23:59 23:59 23:59 23:59 Intake Total 250 1510 2000 1270 Output Total 4616 126 6776 Balance 465 719 9540 -431 Meds/Results Medications: Active Medications Generic Name Dose Route Start Last Admin Trade Name Freq PRN Reason Stop Dose Admin Acetaminophen 650 mg 03/21/24 14:42 03/22/24 20:31 Acetaminophen 325 Mg Tablet PO 650 mg Q4H PRN Administration Mild Pain (1-3) or Fever Albuterol/Ipratropium 3 ml 03/21/24 20:00 03/23/24 07:23 Ipratropium 0.5 Mg/Albuterol Sulfate 2.5 Mg Ampul.Neb 3 Ml INHALATION 3 ml Q6HRT JAIME Administration Apixaban 2.5 mg 03/21/24 09:00 03/23/24 09:03 Apixaban 2.5 Mg Tablet PO 2.5 mg Q12HR JAIME Administration Atorvastatin Calcium 80 mg 03/21/24 21:00 03/22/24 20:22 Atorvastatin 40 Mg Tablet PO 80 mg HS JAIME Administration Clopidogrel Bisulfate 75 mg 03/21/24 09:00 03/23/24 09:04 Clopidogrel Bisulfate 75 Mg Tablet PO 75 mg DAILY JAIME Administration Dexamethasone 6 mg 03/24/24 08:00 Dexamethasone 2 Mg Tablet PO 03/30/24 08:01 DAILY@0800 JAIME Dextrose 12.5 gm 03/21/24 12:24 Dextrose 50% 25 Gm/50 Ml Syringe IV PUSH PRN PRN Hypoglycemia Protocol Empagliflozin 25 mg 03/21/24 09:00 03/23/24 09:04 Empagliflozin 25 Mg Tablet PO 25 mg DAILY JAIME Administration Furosemide 40 mg 03/24/24 09:00 Furosemide 40 Mg Tablet PO DAILY JAIME Glucagon 1 mg 03/21/24 12:24 Glucagon For Inj 1 Mg Vial IM PRN PRN Hypoglycemia Protocol Glucose 15 gm 03/21/24 12:24 Glucose Oral Gel 15 Gm Of Glucse In 37.5 Gm Tube PO PRN PRN Hypoglycemia Protocol Remdesivir 100 mg in 250 mls @ 250 mls/hr 03/21/24 22:00 03/22/24 23:39 IVPB 03/24/24 22:59 Infused Q24H JAIME Infusion Dextrose 1,000 mls @ 100 mls/hr 03/21/24 12:24 Dextrose 5% 1,000 Ml IVPB PRN PRN Hypoglycemia Protocol Insulin Aspart 4 - 8 units 03/21/24 17:00 03/23/24 11:55 Insulin Aspart (*Bkc) 100 Units/Ml SUB-Q 4 units TIDWM JAIME Administration Protocol Insulin Glargine 19 units 03/21/24 21:00 03/22/24 20:22 Insulin Glargine (*Bkc) 100 Units/Ml 0.2 units/kg (19 units) 19 units SUB-Q Administration HS JAIME Loratadine 10 mg 03/21/24 21:00 03/22/24 20:23 Loratadine 10 Mg Tablet PO 10 mg HS JAIME Administration Metoprolol Succinate 100 mg 03/21/24 21:00 03/23/24 09:04 Metoprolol Succinate Ext Rel 100 Mg Tabcr PO 100 mg Q12HR JAIME Administration Sacubitril/Valsartan 1 tab 03/21/24 21:00 03/23/24 09:03 Sacubitril/Valsartan 24-26 Mg Tablet PO 1 tab Q12HR JAIME Administration Radiology Results: ITS Impressions Chest CTA 03/20/24 20:01 IMPRESSION: No pulmonary embolus. Findings suggesting congestive failure and pulmonary hypertension. Groundglass perialveolar infiltrates suggesting significant pulmonary vascular congestion. Indeterminate focus within the right lung base (possibly artifactual) for which follow-up once acute respiratory episode has resolved is recommended. Chest X-Ray 03/21/24 06:33 Impression: Interval improvement in patchy pulmonary haziness. Possible underlying COPD. Stable cardiomegaly, with a loop recorder. Labs Labs: Laboratory Results - last 24 hr 03/22/24 03/22/24 03/23/24 15:29 19:47 04:48 WBC 8.0 RBC 4.78 Hgb 14.6 Hct 44.4 MCV 92.9 MCH 30.5 MCHC 32.9 RDW 14.8 H Plt Count 164 MPV 10.0 Immature Gran % (Auto) 0.4 Neut % (Auto) 79.6 H Lymph % (Auto) 10.9 L [place] % (Auto) 9.0 H Eos % (Auto) 0.0 Baso % (Auto) 0.1 L Lymph # (Auto) 0.87 L [place] # (Auto) 0.7 H Eos # (Auto) 0.0 Baso # (Auto) 0.0 Abs Immat Gran (auto) 0.03 Absolute Neuts (auto) 6.4 Absolute Nucleated RBC 0.000 Nucleated RBC % 0.0 Sodium 137 Potassium 4.1 Chloride 97 L Carbon Dioxide 32 H Anion Gap 8 BUN 50 H Creatinine 1.50 H Estim Creat Clear Calc Not Reportable Estimated GFR 33 L Glucose 154 H POC Capillary Glucose 344 H 328 H Calcium 8.8 Magnesium 2.2 Total Bilirubin 0.7 AST 45 H ALT 35 Alkaline Phosphatase 79 Total Protein 7.0 Albumin 3.6 03/23/24 03/23/24 07:39 11:33 WBC RBC Hgb Hct MCV MCH MCHC RDW Plt Count MPV Immature Gran % (Auto) Neut % (Auto) Lymph % (Auto) [place] % (Auto) Eos % (Auto) Baso % (Auto) Lymph # (Auto) [place] # (Auto) Eos # (Auto) Baso # (Auto) Abs Immat Gran (auto) Absolute Neuts (auto) Absolute Nucleated RBC Nucleated RBC % Sodium Potassium Chloride Carbon Dioxide Anion Gap BUN Creatinine Estim Creat Clear Calc Estimated GFR Glucose POC Capillary Glucose 134 H 243 H Calcium Magnesium Total Bilirubin AST ALT Alkaline Phosphatase Total Protein Albumin Quality VTE Prophylaxis VTE prophylaxis: pharmacologic ordered Hospitalist MIPS Advance Care Plan I have confirmed that the patient's Advanced Care Plan is present, code status is documented, or surrogate decision maker is listed in patient medical record.: Yes Medication Reconciliation I have utilized all available resources to obtain, update and review the patients current medications (includes all prescriptions, OTC, herbals, cannabis, and nutritional supplements).: Yes
[2024-03-23 16:34] LABS: Glucose Point of Care 224 mg/dl (65-105)
[2024-03-23 19:55] LABS: Glucose Point of Care 298 mg/dl (65-105)
[2024-03-23] MEDS: INSULIN GLARGINE (*BKC) 100 UNITS/ML 19 UNITS SUB-Q (21:20)
[2024-03-23] MEDS: LORATADINE 10 MG TABLET PO (21:21)
[2024-03-23] MEDS: ATORVASTATIN 40 MG TABLET 80 MG PO (21:21)
[2024-03-23] MEDS: ACETAMINOPHEN 325 MG TABLET 650 MG PO (21:22)
[2024-03-23] MEDS: REMDESIVIR 100 MG/NS 250 ML 100 MG/250 ML BAG 250 MG IVPB (21:24)
[2024-03-24] VITALS (8 sets, daily range): BP systolic 119–139; BP diastolic 40–45; PULSE 71–78; RESP 12–20; TEMP 36–36.2; O2SAT 94–98
[2024-03-24] MEDS: IPRATROPIUM 0.5 MG/ALBUTEROL SULFATE 2.5 MG AMPUL.NEB 3 ML INHALATION ×4 (02:22→14:43)
[2024-03-24 06:49] LABS: Basophils Percent Auto 0.1 % (0.2-1.2); Eosinophils Percent Auto 0.1 % (0-4.4); Hematocrit 45.6 % (37.0-47.0); Hemoglobin 15.2 g/dL (12.0-15.0); Immature Granulocyte Absolute 0.02 K/mm3 (0.00-0.031); Immature Granulocyte Percent A 0.3 % (0-0.5); Lymphocytes Absolute Auto 0.97 K/mm3 (0.9-3.2); Lymphocytes Percent Auto 13.3 % (18.3-44.2); Mean Corpuscular HGB Conc 33.3 g/dl (32-36); Mean Corpuscular Volume 92.9 fl (80-100); Mean Platelet Volume 9.6 fl (7.4-10.4); Monocytes Absolute Auto 0.7 K/mm3 (0.1-0.6); Monocytes Percent Auto 9.7 % (2.6-8.5); Neutrophils Absolute Auto 5.6 K/mm3 (1.3-6.7); Neutrophils Percent Auto 76.5 % (45.5-73.1); Platelet Count Result 157 k/mm3 (150-375); Red Blood Count 4.91 M/mm3 (4.2-5.4); White Blood Count 7.3 K/mm3 (4.5-10.0)
[2024-03-24 07:10] LABS: Alanine Aminotransferase 36 U/L (6-35); Albumin Level 3.4 g/dL (3.5-5.1); Alkaline Phosphatase 72 U/L (38-126); Anion Gap 7 mmol/L (4-12); Aspartate Amino Transferase 62 U/L (14-36); Bilirubin,Total 0.8 mg/dL (0.2-1.3); Blood Urea Nitrogen 50 mg/dL (7-17); Calcium 8.8 mg/dL (8.4-10.2); Carbon Dioxide 28 mmol/L (22-30); Chloride 100 mmol/L (98-107); Estimated Glomerular Filt Rate 48; Glucose 214 mg/dL (65-110); Magnesium 2.5 mg/dL (1.6-2.3); Potassium 3.7 mmol/L (3.4-5.0); Sodium 135 mmol/L (137-145)
[2024-03-24] MEDS: METOPROLOL SUCCINATE EXT REL 100 MG TABCR PO (08:08)
[2024-03-24] MEDS: dexAMETHasone 2 MG TABLET 6 MG PO (08:08)
[2024-03-24] MEDS: SACUBITRIL/VALSARTAN 24-26 MG TABLET 1 TAB PO (08:09)
[2024-03-24] MEDS: EMPAGLIFLOZIN 25 MG TABLET PO (08:09)
[2024-03-24] MEDS: CLOPIDOGREL BISULFATE 75 MG TABLET PO (08:09)
[2024-03-24] MEDS: APIXABAN 2.5 MG TABLET PO (08:09)
[2024-03-24] MEDS: FUROSEMIDE 40 MG TABLET PO (08:09)
[2024-03-24 08:22] LABS: Glucose Point of Care 183 mg/dl (65-105)
[2024-03-24 11:28] LABS: Glucose Point of Care 308 mg/dl (65-105)
[2024-03-24] MEDS: INSULIN ASPART (*BKC) 100 UNITS/ML SUB-Q (11:50)
--- NOTE | 2024-03-24 13:46 | P.DS_ITS ---
DS: Admitting Diagnosis Discharge Date 03/24/2024 Admitting Diagnosis COVID DS: Discharge Diagnosis Discharge Diagnosis (1) Acute hypoxic respiratory failure: Code(s): J96.01 - Acute respiratory failure with hypoxia Status: Acute Assessment and Plan: Patient was setting 60% on room air. Initially was on 15 L then transition to BiPAP. Now she is on 2 L nasal cannula. * Likely secondary to COVID verses congestive heart failure exacerbation versus less likely bacteria pneumonia * Pulmonary embolism was ruled out, CTA was negative * White count is normal, procal normal, CRP 1.4, no concerns for pneumonia on imaging. * Continuous pulse ox. Maintain saturation greater than 92%. Wean oxygen as tolerated. * BiPAP at HS, 04/21, rate of 16 03/22/24: * OFF Bipap * weaned to 2 L NC * possible flash pulmonary symptoms improved with IV lasix and Bipap 03/23: RA Last dose of remdesivir tonight Switched to Oral Dexamethasone (2) COVID-19: Code(s): U07.1 - COVID-19 Status: Acute Assessment and Plan: Patient reports with exertional dyspnea and productive cough. Denies fever, chills, or body aches. Pulse ox was 68% on room air. Patient initially required 15 L high-flow, transition of BiPAP, and now on 2 L nasal cannula * COVID positive on admission * Patient was started on remdesivir given new oxygen requirement, added Decadron * Contact, droplet precautions * DuoNeb scheduled q.6 * Tylenol as needed for fever, body aches * Incentive spirometer (3) Congestive heart failure: Code(s): I50.9 - Heart failure, unspecified Status: Acute Assessment and Plan: Patient had complaints of lower extremity swelling right greater than left, chest x-ray shows pulmonary edema. Chest CTA chest shows findings consistent with congestive failure and pulmonary hypertension. No pulmonary embolism seen. Patient is chronically on Lasix 20 mg daily, metoprolol succinate 100 mg b.i.d., Entresto 24-26 mg p.o. b.i.d., and Jardiance 25 mg daily * BNP 3930 on admission * New oxygen requirement * Patient received IV Lasix 40 mg b.i.d. on 03/20 * Continue with IV Lasix 40 mg daily today * Chest x-ray shows some improvement, lungs are clear on exam * Resume Entresto, metoprolol, Jardiance * Strict I&O, daily weight * No previous echocardiogram/echocardiogram pending * IV Lasix daily (4) T2DM (type 2 diabetes mellitus): Code(s): E11.9 - Type 2 diabetes mellitus without complications Status: Acute Assessment and Plan: Patient with a history of diabetes normally on insulin degludec 20 units daily. * Accu-Cheks a.c. HS * sliding scale insulin * resume patient's home long-acting * Hemoglobin A1c 6.9 * Diabetic diet * Optimize Ezequiel inhibitors and statins. * Watch for hypoglycemia/hypoglycemic protocol ordered DS: Summary Hospital Course Hospital Course: 83-year-old female with past medical history significant for heart disease, atrial fibrillation, type diabetes mellitus, insulin-dependent. Patient was brought to the emergency room due to shortness of breath over the last several days progressively gotten worse. Paient was positive for COVID. In emergency room patient was placed on BiPAP. She received 4 days of Remdesivir and Decadron. Currently doing well with saturating 95 % on RA. Status at Discharge Cognitive/behavioral status at discharge: Stable Time Spent with Patient Time attestation: Total time spent providing and/or coordinating discharge services:45 mins Exam Narrative: General: appears comfortable, in no acute distress, on 2 L nasal cannula Respiratory: breathing is unlabored with even chest rise/fall, lungs are diminished LL Cardiovascular: Rate and rhythm regular, normal s1s2, no murmur Abdomen: Soft, round, non-tender, active bowel sounds Extremities: No cyanosis, trace bilateral lower extremity edema +1, clubbing. Pulses 2/2 Neuro: A&O x 3 Skin: Warm, dry, intact Const: General: comfortable, no acute distress, well developed, alert, awake, ill appearing acutely, lethargic, patient obtunded and average body habitus Nutritional Appearance: average body habitus Orientation/consciousness: patient oriented x3, patient obtunded and lethargic Other: Patient is on BiPAP HENMT: Head: normal to inspection, normocephalic and atraumatic Ears: hearing grossly normal bilaterally Face/Nose/Sinus: normal facial exam Face and sinus: normal facial exam Eyes: General: appearance normal, both eyes and all related structures Pupils: Equal, round and reactive pupils present EOM: EOMs intact bilaterally Neck: Neck: full ROM, no lymphadenopathy and no JVD Thyroid: thyroid normal Lymphatic: no lymphadenopathy noted Resp: Effort & Inspection: normal respiratory effort and able to speak in complete sentences Auscultation: clear to auscultation bilaterally Cardio: Jugular venous distension: no JVD Rate: regular rate Rhythm: regular rhythm Heart sounds: S1 normal heart sound present and S2 normal heart sound present : General: Yes deferred Skin: Rashes: no rashes Wounds: no wounds Neuro: General: patient oriented x3, CN's II-XI intact bilaterally, patient obtunded and Unable to assess gait Cranial nerves: Yes CN's II-XII intact bilaterally and Yes Equal, round and reactive pupils present Cognition (Neuro): normal cognition Speech: normal speech Gait exam (Neuro): Normal gait present and Unable to assess gait Motor exam (neuro): 5/5 motor strength present throughout Extrem: General: normal to inspection, full ROM, no joint enlargement and no pedal edema DS: Data Data Completed and Pending Labs on day of discharge: Labs from last 24 hours 03/24/24 03/24/24 03/24/24 11:26 08:20 06:25 WBC 7.3 RBC 4.91 Hgb 15.2 H Hct 45.6 MCV 92.9 MCH 31.0 MCHC 33.3 RDW 15.0 H Plt Count 157 MPV 9.6 Immature Gran % (Auto) 0.3 Neut % (Auto) 76.5 H Lymph % (Auto) 13.3 L [place] % (Auto) 9.7 H Eos % (Auto) 0.1 Baso % (Auto) 0.1 L Lymph # (Auto) 0.97 [place] # (Auto) 0.7 H Eos # (Auto) 0.0 Baso # (Auto) 0.0 Abs Immat Gran (auto) 0.02 Absolute Neuts (auto) 5.6 Absolute Nucleated RBC 0.000 Nucleated RBC % 0.0 Sodium 135 L Potassium 3.7 Chloride 100 Carbon Dioxide 28 Anion Gap 7 BUN 50 H Creatinine 1.10 H Estim Creat Clear Calc Not Reportable Estimated GFR 48 L Glucose 214 H POC Capillary Glucose 308 H 183 H Calcium 8.8 Magnesium 2.5 H Total Bilirubin 0.8 AST 62 H ALT 36 H Alkaline Phosphatase 72 Total Protein 7.0 Albumin 3.4 L 03/23/24 03/23/24 19:52 16:28 WBC RBC Hgb Hct MCV MCH MCHC RDW Plt Count MPV Immature Gran % (Auto) Neut % (Auto) Lymph % (Auto) [place] % (Auto) Eos % (Auto) Baso % (Auto) Lymph # (Auto) [place] # (Auto) Eos # (Auto) Baso # (Auto) Abs Immat Gran (auto) Absolute Neuts (auto) Absolute Nucleated RBC Nucleated RBC % Sodium Potassium Chloride Carbon Dioxide Anion Gap BUN Creatinine Estim Creat Clear Calc Estimated GFR Glucose POC Capillary Glucose 298 H 224 H Calcium Magnesium Total Bilirubin AST ALT Alkaline Phosphatase Total Protein Albumin Preliminary micro results at discharge 03/20/24 16:47 Blood Culture - Preliminary Blood 03/20/24 16:47 Blood Culture - Preliminary Blood Discharge Plan Discharge Attending physician on discharge: Hubert Sanchez Discharging Clinician: Hubert Sanchez Anticipated Discharge Date/Time: 03/24/24 13:43 Patient Disposition: NH Retirement/Asst Living Activity: as tolerated Diet: regular Discharge Instructions: In the event of fever, cough or shortness of breath please visit ED Patient completed remdesivir and dexamethasone. Follow-up with the PCP in a week Patient Instructions: Antibiotic Form, Clopidogrel (By mouth), Apixaban (By mouth), Heart Failure (DC), Pain Management (DC), COVID-19 (Coronavirus Disease 2019) (DC) Stand Alone Forms: General Discharge Information Follow-up/Referrals: UNKNOWN,DOCTOR [Primary Care Provider] - 1 Week (Please follow-up with a PCP) Discharge Medications: Continued atorvastatin 80 mg Tablet 80 mg PO HS metoprolol succinate 100 mg Tablet Extended Release 24 Hr 100 mg PO BID clopidogrel 75 mg Tablet 75 mg PO DAILY furosemide 20 mg Tablet 20 mg PO DAILY Hair,Skin and Nails Tablet 1 tablet PO DAILY diphenhydramine-acetaminophen [Acetaminophen PM] 25-500 mg Tablet 2 tablet PO HS betamethasone dipropionate 0.05 % Lotion 1 applic TOPICAL DAILY Rx Instructions: apply to affected areas loratadine [Allergy Relief (loratadine)] 10 mg Tablet 10 mg PO HS eyznlxtr-ohfaklg-ocwm-lutein Tablet 1 tablet PO DAILY Eliquis 2.5 mg Tablet 2.5 mg PO BID insulin degludec 200 unit/mL (3 mL) Insulin Pen 22 unit SUBCUT DAILY Jardiance 25 mg Tablet 25 mg PO DAILY Entresto 24-26 mg Tablet 1 tablet PO BID No Action (DME) [employer] Eyelid Cleansing Pads Pad MISCELLANEOUS Rx Instructions: use as directed at bedtime Date of admission: 03/20/24 21:19 Primary Care Provider: UNKNOWN,DOCTOR Admitting Provider: Nikki Soto V. Attending physician on admission: Sophia Ngo Condition: Stable
== END 2024-03-24 15:50 | DRG 177 ==
LOC: ANHED 17:50 → ANHIMU 22:26 → ANH3MEDSUR 03-24 13:46 → ANHIMU 03-27 13:39
PROVIDERS: General Practice; Nurse Practitioner Acute Care; Student in an Organized Health Care Education/Training Program; Admitting Provider Internal Medicine; Emergency Provider Emergency Medicine; Visit Provider Nurse Practitioner Family
DX: U07.1 COVID-19 (principal); J96.01 Acute respiratory failure with hypoxia; I50.9 Heart failure, unspecified; E11.9 Type 2 diabetes mellitus without complications; I48.91 Unspecified atrial fibrillation; Z79.84 Long term (current) use of oral hypoglycemic drugs; Z79.4 Long term (current) use of insulin; Z79.01 Long term (current) use of anticoagulants; Z79.02 Long term (current) use of antithrombotics/antiplatelets
CPT/HCPCS: 36415; 36600; 71045; 71275; 80053; 82375; 82805; 82948; 83036; 83050; 83605; 83735; 83880; 84145; 84484; 85018; 85025; 85610; 85730; 86140; 87040; 87636; 93005; 94002; 94640; 96374; 96375; 97161; 97165; 99291; A9270; C8929; J0248; J1100; J1815; J1940; J8540; Q9957; Q9967

== ENCOUNTER 2024-09-06 15:31 | Outpatient (CLI) | payer MEDICARE, BC, SELFPAY ==
--- NOTE | ~2024-09-06 | US_ITS ---
EXAMINATION: US venous doppler LE RT DATE: 09/06/2024 16:15 INDICATION: Right lower extremity swelling TECHNIQUE: Grayscale ultrasound images without and with compression and Doppler ultrasound images of the right lower extremity veins were obtained. COMPARISON: 02/09/2024. FINDINGS: The visualized portions of right common femoral vein, profunda (deep) femoral vein, femoral vein, pop liteal vein, posterior tibial veins, and greater saphenous vein outflow are patent. IMPRESSION: 1. No deep venous thrombosis within the right lower extremity. Reviewed, dictated and finalized at location A.
--- OUTSIDE RECORDS SUMMARY | 2024-09-06 17:23 | XMS_ITS | Data Portability ---
Author Organization [facility] [employer], [facility] [employer] [facility] Address [address] [place] [address] Care Team Providers Care Independent Video Producer Name Role Phone ELMER FLORES Primary Care Provider [phone] ELMER FLORES Referring Provider Assessment No assessment recorded. Plan of Treatment Reminders Order Date Submit Date Provider Last Modified By Organization Details Last Modified Time Details Appointments None record ed. Lab PT/INR 017 09/29/19 17 [email or web address] [email or web address] In-Office Order, Internal Use Only DO Not Attach Compendium DO Not Attach Compendium, Do Not Delete/merge, [id number] 11:16:29 PT/INR 017 09/25/19 17 [email or web address] n1 In-Office Order, Internal Use Only DO Not Attach Compendium DO Not Attach Compendium, Do Not Delete/merge, [id number] 10:04:49 PT/INR 017 09/22/19 17 [email or web address] n1 In-Office Order, Internal Use Only DO Not Attach Compendium DO Not Attach Compendium, Do Not Delete/merge, [id number] 12:15:57 PT/INR 017 09/18/19 17 [email or web address] n1 In-Office Order, Internal Use Only DO Not Attach Compendium DO Not Attach Compendium, Do Not Delete/merge, [id number] 14:59:28 Referral None record ed. Procedures None record ed. Surgeries None record ed. Imaging None record ed. Medication Orders None record ed. Patient TargetsNo targets recorded. Patient InstructionsNo instructions recorded. Reason for Referral None Reported. Results Created Date Observation Date Name Description Value Unit Range Abnormal Flag Note LastModifiedBy Organization Detail LastModifiedTime 09/29/19 17 09/28/2016 PT/IN R protime 16.9 secs 10.8-1 2.8 Not Available In-Office Order Internal Use Only DO Not Attach Compendium DO Not Attach Compendium, Do Not Delete/merge, [id number] 09/28/2016 09:20:43 09/29/19 17 09/28/2016 PT/IN R INR 1.4 ratio 0.8-1. 2 Not Available In-Office Order Internal Use Only DO Not Attach Compendium DO Not Attach Compendium, Do Not Delete/merge, [id number] 09/28/2016 09:20:43 09/25/19 17 09/24/2016 PT/IN R protime 16.1 secs 10.8-1 2.8 Not Available In-Office Order Internal Use Only DO Not Attach Compendium DO Not Attach Compendium, Do Not Delete/merge, [id number] 09/24/2016 09:05:07 09/25/19 17 09/24/2016 PT/IN R INR 1.3 ratio 0.8-1. 2 Not Available In-Office Order Internal Use Only DO Not Attach Compendium DO Not Attach Compendium, Do Not Delete/merge, [id number] 09/24/2016 09:05:07 09/22/19 17 09/21/2016 PT/IN R protime 16.1 secs 10.8-1 2.8 Not Available In-Office Order Internal Use Only DO Not Attach Compendium DO Not Attach Compendium, Do Not Delete/merge, [id number] 09/21/2016 09:47:13 09/22/19 17 09/21/2016 PT/IN R INR 1.3 ratio 0.8-1. 2 Not Available In-Office Order Internal Use Only DO Not Attach Compendium DO Not Attach Compendium, Do Not Delete/merge, [id number] 09/21/2016 09:47:13 09/18/19 17 09/17/2016 PT/IN R protime 49.8 secs 10.8-1 2.8 Not Available In-Office Order Internal Use Only DO Not Attach Compendium DO Not Attach Compendium, Do Not Delete/merge, [id number] 09/17/2016 14:55:50 09/18/19 17 09/17/2016 PT/IN R INR 4.2 ratio 0.8-1. 2 Not Available In-Office Order Internal Use Only DO Not Attach Compendium DO Not Attach Compendium, Do Not Delete/merge, [id number] 09/17/2016 14:55:50 Result Notes None recorded. Problems Name Problem SNOMED Code Status Onset Date Resolution Date Notes Provider Name and Address Organization Details Recorded Time Long-term current use of anticoagulant 203443640 Active 2016 TUSHAR Bianchi [address], [place], [address], [facility], [facility] 14:55:44 Atrial fibrillation 07711438 Active 2016 TUSHAR Bianchi [address], [place], [address], [facility], [facility] 14:55:46 Problem Notes None recorded. Procedures Surgical History Date Name Laterality Status Provider Name and Address Organization Details Recorded Time 017 Mammogram Screening completed [facility], [facility] 09/17/2016 14:17:02 017 Electrocardiogram complete completed [facility] 09/17/2016 14:17:46 017 Echocardiography contrast completed [facility] 09/17/2016 14:18:12 017 Chest x-ray 2vw frontal&latl completed [facility] 09/17/2016 14:18:28 016 Colonoscopy completed [facility] 09/17/2016 14:16:32 015 Other completed [facility] 09/17/2016 14:16:45 015 Other completed Julissa [facility], [facility] 09/17/2016 14:17:18 014 Unlisted px ant segment [facility] 14:16:22 011 Valve replacement/repair completed Julissa [facility], [facility] 09/17/2016 14:16:06 section completed Zarina e [facility] 09/17/2016 14:15:52 Imaging Results None recorded. Procedure Notes None recorded. Medical Equipment None Reported. Allergies No known drug allergies Medications Name Sig Start Date Stop Date Status Note LastModified by Organization Details LastModified Time furosemide 40 mg tablet Take 1 tablet every day by oral route. active Not Available Not Available No t Available venlafaxine ER 75 mg capsule,ext ended release 24 hr Take 1 capsule every day by oral route. active Not Available Not Available No t Available aspirin 325 mg tablet Take 1 tablet every day by oral route. active Not Available Not Available No t Available hydrocodone 5 mg-acetamin ophen 325 mg tablet Take 1 tablet every 6 hours by oral route. active Not Available Not Available No t Available venlafaxine ER 150 mg capsule,ext ended release 24 hr Take 1 capsule every day by oral route. active Not Available Not Available No t Available tramadol 50 mg tablet Take 1 tablet every 6 hours by oral route. active Not Available Not Available No t Available triamcinolo ne acetonide 0.1 % topical cream active Not Available Not Available Not Available cefadroxil 500 mg capsule active Not Available Not Available Not Available potassium 99 mg tablet Take 1 tablet every day by oral route. active Not Available Not Available No t Available alprazolam 0.25 mg tablet Take 1 tablet 3 times a day by oral route. active Not Available Not Available No t Available lisinopril 10 mg tablet Take 1 tablet every day by oral route. active Not Available Not Available No t Available warfarin 2 mg tablet Take 2 tablets every day by oral route. 09/17 completed Not Available Not Available Not Available warfarin 5 mg tablet Take 1 tablet every day by oral route. active Not Available Not Available No t Available furosemide 20 mg tablet active Not Available Not Available Not Available metformin ER 500 mg tablet,exte nded release 24 hr active Not Available Not Available Not Available Ventolin HFA 90 mcg/actuati on aerosol inhaler active Not Available Not Available Not Available Vitamin C 500 mg capsule,ext ended release Take 1 capsule every day by oral route. active Not Available Not Available No t Available enoxaparin 120 mg/0.8 mL subcutaneou s syringe active Not Available Not Available No t Available rosuvastati n 40 mg tablet Take 1 tablet every day by oral route. active Not Available Not Available No t Available metoprolol tartrate 25 mg tablet Take 1 tablet twice a day by oral route. active Not Available Not Available No t Available Symbicort 80 mcg-4.5 mcg/actuati on HFA aerosol inhaler active Not Available Not Available Not Available Humalog KwikPen (U-100) Insulin 100 unit/mL subcutaneou s Inject by subcutane ous route. active Not Available Not Available No t Available pen needle, diabetic 32 gauge x 32 active Not Available Not Available Not Available Toujeo SoloStar U-300 Insulin 300 unit/mL (1.5 mL) subcutaneou s pen Inject 66 units every day by subcutane ous route. active Not Available Not Available No t Available Fluzone High-Dose 9461-4053 (PF) 180 mcg/0.5 mL intramuscul ar syringe ADMINISTE R 0.5ML IN THE MUSCLE DIRECTED active Not Available Not Available No t Available Vitals Date Recorded Respiratory rate Body temperature Body height Heart rate Oxygen saturation Oxygen saturation in Arterial blood by Pulse oximetry Provider Name and Address Organization Details Last Updated DateTime 7 19 /min 97.8 [degF] 149.86 cm 60 /min 96 % 96 % Julissa Watts [facility], [facility] 7 14:03:42 Date Recorded Body height Provider Name an d Address Organization Details Last Updated DateTime 09/21/2016 149.86 cm Celena Monsalve [facility], [facility] 09/21/2016 09:46:51 Date Recorded Body height Body weight Body mass index (BMI) Systolic blood pressure Diastolic blood pressure Provider Name and Address Organization Details Last Updated DateTime 09/24/2016 149.86 cm 439792.3 5 g 54.3 kg/m2 128 mm[Hg] 68 mm[Hg] Celena Monsalve [facility], [facility] 7 09:04:58 Social History Question Answer Notes LastModified by Organizat ion Details LastModified Time Tobacco Smoking Status Never Smoker JulissaANNA Stoner - [facility], Before the Call 09/17/2016 14:13:01 Do You Have An Advance Directive? Yes Information not available 09/17/2016 What Is Your Level Of Alcohol Consumption? Occasional Information not available 09/17/2016 How Much Tobacco Do You Chew? None Information not available 09/17/2016 Which Illicit Or Recreational Drugs Have You Used? None Information not available 09/17/2016 Education 12 Information no t available 09/17/2016 What Is Your Occupation? Retired Information not available 09/17/2016 Alcohol Use 1-2 Per Month Informatio n not available 09/17/2016 Marital Status Informatio n not available 09/17/2016 How Much Tobacco Do You Smoke? No Information not available 09/17/2016 Sex: Unknown Functional Status Question Answer Note LastModified by Organization D etails LastModified Time What is your exercise level? None Information not available 09/17/2016 Mental Status None recorded. Family History Relationship Description Onset Age of this Age Resolved Age Notes LastModified by Organization Details LastModified Time Father Disease of liver Not available 2016 14:12:43 Father Heart disease Not available 2016 14:12:58 Mother Disease of liver Not available 2016 14:12:48 Medical History Condition Response Cancer (location) N Other N Gout N Thyroid Disease N Kidney Stones N Emphysema/COPD N Measles/Mumps N Sexually Transmitted Disease N Depression Y Prostate Problems N Vascular Disease N Rash/Skin Condition N Amputation (location) N Parkinson's N Paralysis N Headaches/Migraines N Cardiac Pacemaker/defibrillator N Nerve Damage / Neuropathy N Arthritis Y Sleep disorder/Insomnia N Heart disease / Heart Attack Y Crohn's Disease N HIV/AIDS N Stroke/TIA N High Cholesterol Y Colon Problems N Serious Injuries N Kidney Disease Y Memory Loss/Alzheimer's N Gallbladder disease N High blood pressure Y Congestive heart failure N Falls Y Alcohol Overuse N Blood Thinner Treatment Y Hormone Replacement N Nervous Breakdown N Junior's Esophagus N Anemia N Urinary Problems N Colon Polyps N Gastritis N Hospitalizations (other than operations) N Back pain Y Diabetes Y Rheumatic Fever N Bleeding Disorder N Cardiac Arrhythmias /irregular heart rat e N Osteopenia/Osteoporosis Y Anxiety/Stress Y Asthma Y Vision Problems N Erectile / Sexual Dysfunction N Ostomies (location) N Seizures N Jaundice N Sleep Apnea N Hepatitis N Cirrhosis N GERD/Ulcer N Chicken Pox N Allergies (other than meds) N Gynecological History Statement/Question Response Abortus 0 Current Control Method Menopause Age at Menarche [age] Para 3 Obstetrics History GPAL:G 0 P 0 0 0 0 Immunizations Vaccine Type Date Status Note Provider Nam e and Address Organization Details Recorded Time Influenza, high-dose, trivalent, PF 6 completed Julissa bush [facility] 09/17/2016 14:23:52 pneumococcal polysaccharide PPV23 7 completed Julissa bush [facility] 09/17/2016 14:24:06 zoster live 5 completed Julissa bush [facility] 09/17/2016 14:24:20 Past Encounters Encounter ID Performer Location Encounter Start Date Encounter Closed Date Diagnosis/Indication Diagnosis SNOMED-CT Code Diagnosis ICD10 Code Diagnosis Note [id number] MD LENNIE Vazquez [facility] [address] [place] [address] 09/17/2016 13:43:14 09/17/2016 15:05:59 Atrial fibrillation 22345247 I48.0 Rate controlled , on anticoagul ation. Long-term current use of anticoagulant 712391528 Z79.01 Will check PT/INR. Pt on 9 mg of Warfarin daily. INR high. Pt to hold Warfarin and restart at 5 mg on Wednesday. Will recheck PT/INR on Wednesday [id number] TUSHAR Griffin [facility] [address] [place] [address] 09/21/2016 09:17:15 09/21/2016 10:11:36 Atrial fibrillation 71434147 I48.0 Subtherape utic. Will recheck lab on . [id number] [facility]USHAR [facility] [address] [place] [address] 09/24/2016 08:59:51 09/24/2016 09:24:20 Atrial fibrillation 80000253 I48.0 Subtherape utic. Will recheck lab on . Long-term current use of anticoagulant 816627220 Z79.01 INR low. Will increase Warfarin to 7.5 mg daily and recheck INR on Wednesday [id number] TUSHAR Griffin [facility] [address] [place] [address] 09/28/2016 09:11:17 09/28/2016 11:09:14 Atrial fibrillation 72752014 I48.0 Subtherape utic. Warfarin increased to 10 mg daily. Pt heading back home and will follow up with her Primary on for repeat INR. Health Concerns Section Related Observation LastModified by Organization Detai ls LastModified Time None Recorded Concern Status LastModified by Organization Details LastModified Time None Recorded Advance Directives Directive Y: Payers Encounter Date Sequence Insurance Name Policy Number Policy Figueroa Covered Member ID Figueroa Member ID Guarantor Name 09/17/2016 1 [place] Lizabethgalileo Jaimesmidt [id number] Lizabeth F Vicky 09/17/2016 2 [place] [id number] Lizabeth F Vicky [id number] Lizabeth F Vicky 09/21/2016 1 [place] L[place] F Vicky [id number] Lizabeth F Vicky 09/21/2016 2 [place] [id number] Lizabeth F Vicky [id number] Lizabeth F Vicky 09/24/2016 1 [place] Lizabeth F Vicky [id number] A Lizabeth F Vicky 09/24/2016 2 [place] [id number] Lizabethgalileo Arenasschmidt [id number] Lizabeth Rankint 09/28/2016 1 [place] Lizabeth Rankint [id number] A Lizabeth Rankint 09/28/2016 2 [facility] [id number] Lizabeth Perry [id number] Lizabeth Perry Notes Date Note Type Note Provider Name and Address Organization Details Recorded Time 09/17/2016 text/html Atrial Fibrillation*Report ed bypatient.Reason for visit:continued care of chronic complaint Diagnosis*:chronic, paroxysmal (episodes terminate spontaneously) Rate Control:*rate controlled Interventions:no interventions Current therapy:medication list reviewed; Warfarin/coumadin Current control and compliance:usually well controlled/stable; usually compliant with regimen; exercising regularly; eating healthy meals Current tests/results:recen t labs reviewed Current symptoms/concerns:n o side effects; no chest pain; no palpitations; no worsening symptoms; no shortness of breath; no fatigue; no headaches; no blurred vision; no edema; no slurred speech; no numbness; no localized weakness Pt is here visiting for 2 weeks and needs to have PT/INR Elmer Flores MD [address] [address], [place], [address], [facility] - [facility], [facility] 09/18/2016 10:09:43 OBGyn Episode No OBEpisode recorded.
--- OUTSIDE RECORDS SUMMARY | 2024-09-06 17:24 | XMS_ITS | CONTINUITY OF CARE DOCUMENT ---
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 Role Phone Alan Seo MD Unavailable [place] MANAGER OF SELECTION AND ASSESSMENT, Stark Unavailable [phone] Thilker MANAGER OF SELECTION AND ASSESSMENT, Stark Unavailable PROBLEMS Condition Status Date Provider Notes Calf pain, right active Gab Duval Old myocardial infarction active Gab waldrop Cardiology examination active Alan Seo MD Diabetes, Type 2 active Alan Seo MD G E R D active Alan Seo MD Hyperlipidemia active Alan Seo MD Hypertension active Alan Seo MD JACK - on CPAP active Alan Seo MD CKD active Alan Seo MD CHF active Alan Seo MD SICK SINUS SYNDROME s/p pacemaker active Us rima Seo MD AFIB active Alan Seo MD ENCOUNTERS Date Type Provider Location Encounter Diag nosis - In-person encounter Office Visit Alan Seo MD [facility] Cardiology examinationDiabetes, Type 2G E R DHyperlipidemiaHypertensionOSA - on CPAPCKDCHFSICK SINUS SYNDROME s/p pacemakerAFIB VITAL SIGNS Date Observation Value Provider Body Mass Index (Ratio) 42.61 kg/m2 Bridgette Seo MD blood pressure, diastolic 80 mm[Hg] Li nkLogic blood pressure, systolic 146 mm[Hg] Mickie kLogic blood pressure, cuff size regular Ke rri Musa blood pressure, diastolic 80 mm[Hg] Ke rri Musa blood pressure, systolic 146 mm[Hg] Paz Vigil oxygen saturation, oximetry 92 % Kendal Vigil respiratory rate E&M 12 /min Kendal griffin pulse rate 83 /min Kendal Ly lder weight E&M 211 [lb_av] Kendal Ly lder height E&M 59 [in_i] Kendal casper HISTORY OF MEDICATION USE Medication Status Instructions Dates Provider Indications Com ments Jardiance 25 mg tablet active Take 1 tablet by mouth once a day Kendal Vigil oxybutynin chloride 5 mg tablet active take 1 pill a day Kendal Vigil atorvastatin 80 mg tablet active TAKE 1 TABLET BY MOUTH EVERY DAY Kendal Vigil loperamide 2 mg tablet active take 1 pill as needed Kendal Vigil clopidogrel 75 mg tablet active Take 1 tablet by mouth once a day Kendal Vigil venlafaxine 75 mg capsule,extended release 24hr active take 2 pills in the am Kendal Vigil metoprolol succinate 100 mg tablet extended release 24 hr active take 1 pill twice a day Kendal Vigil Ozempic 1 mg/dose (4 mg/3 mL) pen injector active Kendal Vigil insulin degludec 100 unit/mL solution active Kendal Vigil Farxiga 10 mg tablet active TAKE ONE Tablet BY MOUTH EVERY DAY Kendal Vigil pantoprazole 40 mg tablet,delayed release (DR/EC) active TAKE 1 TABLET BY MOUTH DAILY Kendal Vigil furosemide 20 mg tablet active TAKE 1 TABLET BY MOUTH EVERY DAY Kendal Vigil Eliquis 5 mg tablet active Take 1 tablet by mouth twice daily Kendal Vigil Entresto 24-26 mg tablet active Take 1 tablet by mouth twice a day Kendal Vigil spironolactone 25 mg tablet active 1/2 pill a day Kendal Vigil hydroxyzine HCl 10 mg tablet active take 1 pill every 6 hours as needed Kendal Vigil FUNCTIONAL STATUS Date Observation Value Provider HRA, CV Assess/Plan, Angina (inactive) Management Plan continue current therapy Alan Seo MD INSURANCE PROVIDERS Payer name Policy type / Coverage type [place] red democrat ID [facility] [id number] [place] Medicare [id number] ADVANCE DIRECTIVES Name Date DISCUSSED - NO DECISION MADE TREATMENT PLAN Date Name Performer Cardiology:Venous do pppler was done to r/o DVT C heck reflux study as she is having some swelling c ompression advised Alan Seo MD Cardiology:The patie nt is using CPAP on a regular basis. The patient has been benefiting from therapy and should continue use. Alan Seo MD Cardiology: H er updated medication list for this problem includes: Metoprolol Succinate 100 Mg Tablet Extended Release 24 Hr (Metoprolol succinate) ..... Take 1 pill twice a day Furosemide 20 Mg Tablet (Furosemide) ..... Take 1 tablet by mouth every day Spironolactone 25 Mg Tablet (Spironolactone) ..... 1/2 pill a day BP today: 146/80 Alan Seo MD Cardiology:on max do se statin H er updated medication list for this problem includes: Atorvastatin 80 Mg Tablet (Atorvastatin) ..... Take 1 tablet by mouth every day Alan Seo MD Cardiology Alan Seo MD Cardiology:appears compensated o n current medications Alan Seo MD Cardiology:on eliquis Alan gomez MD Cardiology:has not b een followed, will bring card to next appt Alan Seo MD Date Name Venous Doppler Bilat eral LE - Reflux Venous Doppler Unila teral RLE HISTORY OF PROCEDURES Procedure Date Procedure Name Provider Procedure Notes S tatus EKG Alan Seo MD completed
== END 2024-09-06 15:32 | disposition home or self-care (01) ==
PROVIDERS: Visit Provider Family Medicine
DX: R22.41 Localized swelling, mass and lump, right lower limb (principal)
CPT/HCPCS: 93971

== ENCOUNTER 2024-10-03 10:13 | Emergency (ER) | payer MEDICARE, BC, SELFPAY ==
--- NOTE | ~2024-10-03 | CT_ITS ---
EXAMINATION: CT brain wo con DATE: 10/03/2024 12:26 INDICATION: Hallucinations TECHNIQUE: Computed tomography (CT) of the head was performed without intravenous contrast. Sagittal and coronal reconstructions were performed. The mA was adjusted according to patient size. Iterative reconstruction technique was employed. The dose-length product was 605.33 mGy-cm. COMPARISON: None FINDINGS: No acute intracranial hemorrhage, acute infarction or abnormal extra axial fluid collection. 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 There is mild scattered white matter hypoattenuation co nsistent with chronic small vessel ischemic disease. Symmetric prominence of the sulci consistent wit h mild age-appropriate diffuse cerebral volume loss.. Ventricles are normal and symmetric. No mass/ma ss effect. Changes of bilateral intraocular lens replacement. The orbits, paranasal sinuses and masto id air cells are normal. IMPRESSION: 1. 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 No acute i ntracranial process. Reviewed, dictated and finalized at location A. IMPRESSION: 1. 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 No acute intracranial process.
--- NOTE | ~2024-10-03 | XR_ITS ---
XR chest 1V Ordering provider: Nataly Nevarez MD History: 84 years Female with . halluc, hx resp failure . Comparison: March 21, 2024 FINDINGS: MEDIASTINUM: The cardiac silhouette is moderately enlarged. Postoperative changes in the mediastinum. Congestive nate. LUNGS: No effusions or pneumothorax. Minimal interstitial and alveolar opacification suggestive of pulmonary edema versus pneumonitis. OTHER: No free air under the diaphragm. IMPRESSION: Cardiomegaly with cardiac decompensation and pulmonary edema. Pneumonitis is not excluded. Clinical c orrelation advised. Reviewed, dictated and finalized at location A. IMPRESSION: Cardiomegaly with cardiac decompensation and pulmonary edema. Pneumonitis is no t excluded. Clinical correlation advised.
[2024-10-03 10:21] VITALS: BP 116/54; PULSE 69; RESP 18; TEMP 36.6; O2SAT 98
[2024-10-03 10:29] LABS: Glucose Point of Care 198 mg/dl (65-105)
--- OUTSIDE RECORDS SUMMARY | 2024-10-03 10:29 | XMS_ITS | Data Portability ---
Author Organization [facility] [employer], [facility] Patient Conversation Media [facility] Address [address] [place] [address] Care Team Providers Care School Supervisor Name Role Phone ELMER FLORES Primary Care Provider [phone] ELMER FLORES Referring Provider [phone] Assessment No assessment recorded. Plan of Treatment Reminders Order Date Submit Date Provider Last Modified By Organization Details Last Modified Time Details Appointments None record ed. Lab PT/INR 017 09/29/19 17 [email or web address] In-Office Order, Internal Use Only DO Not Attach Compendium DO Not Attach Compendium, Do Not Delete/merge, [id number] 11:16:29 PT/INR 017 09/25/19 17 [email or web address] In-Office Order, Internal Use Only DO Not Attach Compendium DO Not Attach Compendium, Do Not Delete/merge, [id number] 7 10:04:49 PT/INR 017 09/22/19 17 [email or web address] In-Office Order, Internal Use Only DO Not Attach Compendium DO Not Attach Compendium, Do Not Delete/merge, [id number] 7 12:15:57 PT/INR 017 09/18/19 17 [email or web address] In-Office Order, Internal Use Only DO Not Attach Compendium DO Not Attach Compendium, Do Not Delete/merge, [id number] 7 14:59:28 Referral None record ed. Procedures [...] DO Not Attach Compendium, Do Not Delete/merge, [id number] 09/28/2016 09:20:43 09/29/19 17 09/28/2016 PT/IN R INR 1.4 ratio 0.8-1. 2 Not Available In-Office Order Internal Use Only DO Not Attach Compendium DO Not Attach Compendium, Do Not Delete/merge, [id number] 09/28/2016 09:20:43 09/25/19 17 09/24/2016 PT/IN R protime 16.1 secs 10.8-1 2.8 Not Available In-Office Order Internal Use Only DO Not Attach Compendium DO Not Attach Compendium, Do Not Delete/merge, [id number] 09/24/2016 09:05:07 09/25/19 17 09/24/2016 PT/IN R INR 1.3 ratio 0.8-1. 2 Not Available In-Office Order Internal Use Only DO Not Attach Compendium DO Not Attach Compendium, Do Not Delete/merge, [id number] 09/24/2016 09:05:07 09/22/19 17 09/21/2016 PT/IN R protime 16.1 secs 10.8-1 2.8 Not Available In-Office Order Internal Use Only DO Not Attach Compendium DO Not Attach Compendium, Do Not Delete/merge, [id number] 09/21/2016 09:47:13 09/22/19 17 09/21/2016 PT/IN R INR 1.3 ratio 0.8-1. 2 Not Available In-Office Order Internal Use Only DO Not Attach Compendium DO Not Attach Compendium, Do Not Delete/merge, [id number] 09/21/2016 09:47:13 09/18/19 17 09/17/2016 PT/IN R protime 49.8 secs 10.8-1 2.8 Not Available In-Office Order Internal Use Only DO Not Attach Compendium DO Not Attach Compendium, Do Not Delete/merge, [id number] 09/17/2016 14:55:50 09/18/19 17 09/17/2016 PT/IN R INR 4.2 ratio 0.8-1. 2 Not Available In-Office Order Internal Use Only DO Not Attach Compendium DO Not Attach Compendium, Do Not Delete/merge, [id number] 09/17/2016 14:55:50 Result Notes None recorded. Problems Name Problem SNOMED Code Status Onset Date Resolution Date Notes Provider Name and Address Organization Details Recorded Time Long-term current use of anticoagulant 589077424 Active 2016 TUSHAR Bianchi [address], [place], [address], [facility], [facility] 14:55:44 Atrial fibrillation 05641647 Active 2016 TUSHAR Bianchi [address], [place], [address], [facility], [facility] 14:55:46 Problem Notes None recorded. Procedures Surgical History Date Name Laterality Status Provider Name and Address Organization Details Recorded Time 017 Mammogram Screening completed [facility], [facility] 09/17/2016 14:17:02 017 Electrocardiogram complete completed [facility] 09/17/2016 14:17:46 017 Echocardiography contrast completed [facility] 09/17/2016 14:18:12 017 Chest x-ray 2vw frontal&latl completed [facility] 09/17/2016 14:18:28 016 Colonoscopy completed [facility] 09/17/2016 14:16:32 015 Other completed [facility] 09/17/2016 14:16:45 015 Other completed Julissa Rothman [facility], [facility] 09/17/2016 14:17:18 014 Unlisted px ant segment eye [facility] 14:16:22 011 Valve replacement/repair completed Julissa Rothman [facility], [facility] 09/17/2016 14:16:06 section completed Zarina e [facility] 09/17/2016 14:15:52 Imaging Results None recorded. Procedure [...] Not Available No t Available Fluzone High-Dose [id number] (PF) 180 mcg/0.5 mL intramuscul ar syringe [...] /min 96 % 96 % Julissa Watts [facility], [facility] 7 14:03:42 Date Recorded Body height Provider Name an d Address Organization Details Last Updated DateTime 09/21/2016 149.86 cm Celena Monsalve [facility], [facility] 09/21/2016 09:46:51 Date Recorded Body height Body weight Body mass index (BMI) Systolic blood pressure Diastolic blood pressure Provider Name and Address Organization Details Last Updated DateTime 09/24/2016 149.86 cm 793325.3 5 g 54.3 kg/m2 128 mm[Hg] 68 mm[Hg] Celena Monsalve [place] [facility], [facility] 7 09:04:58 Social History Question Answer Notes LastModified by [employer] Details LastModified Time Tobacco Smoking Status Never Smoker Julissa ANNA Bar[facility] - [facility], [facility] 09/17/2016 14:13:01 Do You Have An Advance Directive? Yes Information not available 09/17/2016 How Much Tobacco Do You Chew? None Information not available 09/17/2016 Which Illicit Or Recreational Drugs Have You Used? None Information not available 09/17/2016 Education 12 Information no t available 09/17/2016 Alcohol Use 1-2 Per Month Information not available 09/17/2016 Marital Status Informatio n not available 09/17/2016 How Much Tobacco Do You Smoke? No Information not available 09/17/2016 Sex: Unknown Functional Status Question Answer Note LastModified by [employer] Details LastModified Time What is your level of alcohol consumption? Occasional Information not available 09/17/2016 What is your occupation? retired Information not available 09/17/2016 What is your exercise level? None Information [...] N Thyroid Disease N Kidney Stones N Measles/Mumps N Emphysema/COPD N Sexually Transmitted Disease N Depression Y Prostate Problems N Vascular Disease N Rash/Skin Condition N Amputation (location) N Parkinson's N Paralysis N Headaches/Migraines N Cardiac Pacemaker/defibrillator N Nerve Damage / Neuropathy N Arthritis Y Sleep disorder/Insomnia N Heart disease / Heart Attack Y Crohn's Disease N HIV/AIDS N Stroke/TIA N Colon Problems N High Cholesterol Y Serious Injuries N Kidney Disease Y Memory [...] high-dose, trivalent, PF 6 completed Julissa bush [facility] 09/17/2016 14:23:52 pneumococcal polysaccharide PPV23 7 completed Julissa bush [facility] 09/17/2016 14:24:06 zoster live 5 completed Julissa bush [facility] 09/17/2016 14:24:20 Past Encounters Encounter ID Performer Location Encounter Start Date Encounter Closed Date Diagnosis/Indication Diagnosis SNOMED-CT Code Diagnosis ICD10 Code Diagnosis Note [id number] TUSHAR Griffin [facility] [address] [place] [address] 09/17/2016 13:43:14 09/17/2016 15:05:59 Atrial fibrillation 87663675 I48.0 Rate controlled , on anticoagul ation. Long-term current use of anticoagulant 493720362 Z79.01 Will check PT/INR. Pt on 9 mg of Warfarin daily. INR high. Pt to hold Warfarin and restart at 5 mg on Wednesday. Will recheck PT/INR on Wednesday [id number] TUSHAR Griffin [facility] [address] [place] [address] 09/21/2016 09:17:15 09/21/2016 10:11:36 Atrial fibrillation 93869085 I48.0 Subtherape utic. Will recheck lab on . [id number] TUSHAR Griffin [facility] [address] [facility] [place] [address] 09/24/2016 08:59:51 09/24/2016 09:24:20 Atrial fibrillation 27126319 I48.0 Subtherape utic. Will recheck lab on . Long-term current use of anticoagulant 415966137 Z79.01 INR low. Will increase Warfarin to 7.5 mg daily and recheck INR on Wednesday [id number] [facility] [address] [facility] [place] [address] 09/28/2016 09:11:17 09/28/2016 11:09:14 Atrial fibrillation 29703493 I48.0 Subtherape utic. Warfarin increased to 10 mg daily. Pt heading back home and will follow up with her Primary on for repeat INR. Health Concerns Section Related Observation LastModified by Organization Detai ls LastModified Time None Recorded Concern Status LastModified by Organization Details LastModified Time None Recorded Advance Directives Directive Y: Payers Insurance Date Sequence Insurance Name Policy Number Policy Figueroa Covered Member ID Figueroa Member ID Guarantor Name 09/23/2016 2 [facility] [id number] Lizabeth Perry [id number] Lizabeth Perry 11/26/2017 1 [place] Lizabeth Perry [id number] Lizabeth Perry Notes Date Note Type Note [...] needs to have PT/INR Elmer Flores MD [address] [address], [place], [address], [facility] - [facility], [facility] 09/18/2016 10:09:43 OBGyn Episode No OBEpisode recorded.
--- OUTSIDE RECORDS SUMMARY | 2024-10-03 10:29 | XMS_ITS | CONTINUITY OF CARE DOCUMENT ---
Author Name bhavanikwame bhavanikwame Address Unknown Organization [facility] Office Address [address] [place] [address] Phone [phone] Care Team Providers Care Heat Treat Inspector Name Role Phone Alan Seo MD Unavailable Xiomaralpaz STRIPPING MACHINE OPERATOR, [place] Unavailable Thilker STRIPPING MACHINE OPERATOR, [place] Unavailable PROBLEMS Condition Status Date Provider Notes Calf pain, right active Gab uDval Old myocardial infarction active Gab w[facility]rop Cardiology [...] In-person encounter Office Visit Alan Seo MD [employer] [facility] Cardiology examinationDiabetes, Type 2G E R [...] Payer name Policy type / Coverage type [place] red [employer] ID [facility] [id number] [place] Medicare [id number] ADVANCE DIRECTIVES Name Date DISCUSSED - NO [...]
--- OUTSIDE RECORDS SUMMARY | 2024-10-03 10:29 | XMS_ITS | Data Portability ---
Author Organization [facility] [employer], Main Office Address [address] [place] [address] Assessment Encounter Date Assessment Date Assessment LastModified by Organization Details LastModified Time 07/21/2024 07/21/2024 A total of 54 minutes were spent [id number] with this patient. [email or web address] Not available 07/21/2024 16:54:29 08/21/2024 08/21/2024 D/w pt and her s on about her findings and further options for her. They wants to do US as out pt. Will do US Lt leg venous. Routine dressing done in the office. Meds as directed. Routine wound care explained in detail. Fall risk precautions explained. Advised to f/u with her Cardio for anticoagulation regimen. Educated about alarming symptoms to monitor at home and get checked in ED. F/u with PCP in 1 week. Not available 08/21/2024 17:40:50 Plan of Treatment Reminders Order Date Submit Date Provider Last Modified By Organization Details Last Modified Time Details Appointments Follow Up 2024 02:45P DEBBIE Ayon Not available Not available Not available Follow Up 2024 03:15P DEBBIE Ayon Not available Not available Not available Lab lipid panel, serum 2024 025 [facility] (Lab), [address] [place], [address], 07/25/2024 04:30:20 glycohemo globin, total, blood 2024 025 [facility] (Lab), [address] [place], [address], 07/25/2024 04:30:21 Referral podiatris t referral - Please call patient to schedule an appointme nt. Thank you. 2024 025 MAGEN Patrice Casillas DPM, [address] [facility], [place], [address], 08/03/2024 10:06:00 Procedures None recorded. Surgeries None recorded. Imaging US, duplex, venous, lower extremity , unilatera l - Please call patient to schedule. Note from provider: Rt leg week for 1 week 2024 025 [facility] ([facility]), [address] [facility] [address] [facility], [place], [address], 09/06/2024 19:08:16 Medication Orders furosemid e 40 mg tablet 2024 025 [facility] #[id number], [address], [place], [id number], 08/29/2024 14:53:33 doxycycli ne hyclate 100 mg capsule 2024 025 [facility] #96834, [address], [place], [id number], 08/29/2024 14:53:30 doxycycli ne hyclate 100 mg capsule 2024 025 [facility] #[id number], [address], [place], [id number], 08/21/2024 17:29:04 cefazolin 1 gram solution for injection 2024 025 [email or web address] Not available 08/22/2024 11:02:01 buspirone 5 mg tablet 2024 025 [facility] #95056, [address], [place], [id number], 07/21/2024 16:50:43 alprazola m 0.25 mg tablet 2024 025 [facility] #94836, [address], [place], [id number], 07/21/2024 16:50:44 Ozempic 2 mg/dose (8 mg/3 mL) subcutane ous pen injector [address], [address], 07/21/2024 18:33:47 True Metrix Glucose Test Strip [address], [address], 07/21/2024 16:51:24 Repatha SureClick 140 mg/mL subcutane ous pen injector 2023 024 [facility] #53569, [address], [place], [id number], 07/21/2024 16:36:46 albuterol sulfate HFA 90 mcg/actua tion aerosol inhaler 2023 024 [facility] #48070, [address], [place], [id number], 01/20/2024 14:20:26 Ozempic 2 mg/dose (8 mg/3 mL) subcutane ous pen injector 2023 024 [facility] #30248, [address], [place], [id number], 01/20/2024 14:20:25 Patient TargetsNo targets recorded. Patient InstructionsNo instructions recorded. 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 Thank you. Referring Physician: Gerri Valencia, Family Medicine, Encounter Date: 07/21/2024 Results Created Date Observation Date Name Description Value Unit Range Abnormal Flag Note LastModifiedBy Organization Detail LastModifiedTime 01/28/2001/27/2024 US, doppl er, venou s No observ ation record ed. [facility] [address], [place], [address], 01/31/2024 08:26:35 09/07/19 25 09/06/2024 US, duple x, venou s, lower extre mity, unila teral No observ ation record ed. [address] [facility], [place], [address], 09/07/2024 16:19:52 09/08/19 25 09/06/2024 US, duple x, venou s, lower extre mity, unila teral No observ ation record ed. [address] [facility], [place], [address], 09/07/2024 16:19:52 Result Notes None recorded. Problems Name Problem SNOMED Code Status Onset Date Resolution Date Notes Provider Name and Address Organization Details Recorded Time Chronic kidney disease 824740041 Active 2023 DEBBIE Vega [address], [place], [address], [employer] 4 16:17:48 Type 2 diabetes mellitus 62922060 Active 2023 DEBBIE Vega [address], [place], [address], [employer] 4 16:18:27 History of artery embolism 7098787207032 9108 Active 2023 DEBBIE Vega [address], [place], [address], [employer] 4 16:18:48 Chronic congestive heart failure 57619047 Active 2023 DEBBIE Vega [address], [place], [address], [employer] 4 16:19:03 Essential hypertensio n 95196411 Active 2023 DEBBIE Vega [address], [place], [address], [employer] 4 16:19:31 Overactive urinary bladder 735223704 Active 2023 DEBBIE Vega [address], [place], [address], [employer] 4 16:19:55 Generalized anxiety disorder 70687184 Active 2023 DEBBIE Vega [address], [place], [address], [employer] 4 16:20:03 Gastroesoph ageal reflux disease without esophagitis 252811058 Active 2023 DEBBIE Vega [address], [place], [address], [employer] 4 16:20:24 History of myocardial infarction 435764493 Active 2023 DEBBIE Vega [address], [place], [address], [employer] 4 16:23:42 Skin lesion 04729272 Active 2023 DEBBIE Vega [address], [place], [address], [employer] 4 16:42:28 Abnormal gait due to muscle weakness 043062350 Active 2023 DEBBIE Vega [address], [place], [address], [employer] 4 16:43:06 Wheezing 30151899 Active 2023 DEBBIE Vega [address], [place], [address], [employer] 4 14:19:54 Dusky discolorati on of skin 473376832 Active 2023 DEBBIE Vega [address], [place], [address], [employer] 4 11:20:17 Discolorati on of skin 4031870 Active 2023 DEBBIE Vega [address], [place], [address], [employer] 4 11:20:29 Fear of dentist 477006023 Active 2024 DEBBIE Vega [address], [place], [address], [employer] 5 16:21:48 Panic disorder 699698152 Active 2024 DEBBIE Vega [address], [place], [address], [employer] 5 16:22:43 Seborrheic dermatitis of scalp 087946070 Active 2024 DEBBIE Vega [address], [place], [address], [employer] 5 16:23:44 Cellulitis of right lower limb 3704064696892 9104 Active 2024 Jamie Guajardo MD [address], [place], [address], [employer] 5 17:25:16 Localized swelling of right lower leg 3840403851508 9104 Active 2024 Jamie Guajardo MD [address], [place], [address], [employer] 17:26:26 Obesity 232581500 Active 2024 Jamie Guajardo MD [address], [place], [address], [place] [employer] 17:41:40 Edema of lower extremity 483289772 Active 2024 DEBBIE Vega [address], [place], [address], [place] [employer] 14:51:27 Problem Notes None recorded. Procedures Surgical History None recorded. Imaging Results Imaging Date Name Status LastModified by Organiz ation Details LastModified Time 01/27/2024 US, doppler, venous completed [facility] [address] , [place], [address], 01/31/2024 08:26:35 09/06/2024 US, duplex, venous, lower extremity, unilateral completed [address] [place] [address], [address], 09/07/2024 16:19:52 09/06/2024 US, duplex, venous, lower extremity, unilateral completed [address] [place] [address], [address], 09/07/2024 16:19:52 Procedure Notes None recorded. Medical Equipment None Reported. Allergies No known drug allergies Medications Name Sig Start Date Stop Date Status Note LastModified by Organization Details LastModified Time Prescriptio n - Prior Authorizati on Request active Not Available Not Available N ot Available furosemide 40 mg tablet Take 1 tablet every day by oral route as directed for 90 days. 2024 active Not Available Not Available Not Avai lable cefazolin 1 gram solution for injection Take 1 g by injection route for 1 day. 2024 active pt sadiq well Not Available Not Available Not Available buspirone 5 mg tablet TAKE 1 TABLET BY MOUTH TWICE DAILY NEEDED active Not Available Not Available No t Available atorvastati n 80 mg tablet Take 1 tablet every day by oral route at bedtime. active Not Available Not Available No t Available oxybutynin chloride ER 15 mg tablet,exte nded release 24 hr Take 2 tablets every day by oral route at bedtime. active Not Available Not Available No t Available doxycycline hyclate 100 mg capsule Take 1 capsule twice a day by oral route as directed for 10 days. 2024 active Not Available Not Available Not Avai lable venlafaxine 75 mg tablet Take 2 tablets every day by oral route in the morning. active Not Available Not Available No t Available loperamide 2 mg tablet Take 1 tablet every day by oral route as needed. active Not Available Not Available No t Available clopidogrel 75 mg tablet Take 1 tablet every day by oral route. active Not Available Not Available No t Available tramadol 50 mg tablet Take 1-2 tablets every 8 hrs as needed for pain rated 6/10 or higher 2023 active Not Available Not Available Not Avai lable amoxicillin 875 mg tablet TAKE 1 TABLET BY MOUTH EVERY 12 HOURS active Not Available Not Available No t Available alprazolam 0.25 mg tablet TAKE 1 TABLET BY MOUTH EVERY DAY NEEDED FOR SEVERE ANXIETY active Not Available Not Available No t Available cephalexin 500 mg capsule TAKE 1 CAPSULE BY MOUTH EVERY 6 HOURS 02/23 completed Not Available Not Available Not Available pantoprazol e 40 mg tablet,cricket yed release Take 1 tablet every day by oral route. active Not Available Not Available No t Available nitroglycer in 0.[address] 1 tablet every day by sublingua l route as needed for 30 days. 2024 active Not Available Not Available Not Avai lable furosemide 20 mg tablet Take 1 tablet every day by oral route. active Not Available Not Available No t Available nystatin 100,000 unit/gram topical powder APPLY TO THE AFFECTED AREA(S) BY TOPICAL ROUTE 2 TIMES PER DAY 2023 active Not Available Not Available Not Avai lable albuterol sulfate HFA 90 mcg/actuati on aerosol inhaler Inhale 2 puffs every 4 hours by inhalatio n route as needed for 30 days. 2023 active Not Available Not Available Not Avai lable ketoconazol e 2 % topical cream APPLY TO THE AFFECTED AREA(S) BY TOPICAL ROUTE ONCE DAILY active Not Available Not Available No t Available hydroxyzine HCl 10 mg tablet Take 1 tablet every 6 hours by oral route as needed. 01/10 completed Not Available Not Available Not Available Tylenol PM Extra Strength 25 mg-500 mg tablet Take 2 tablets every day by oral route at bedtime. active Not Available Not Available No t Available spironolact one 12.5mg daily active Not Available Not Available No t Available metoprolol succinate 100mg BID active Not Available Not Available Not Available Hair Vitamins 2 caps daily active Not Available Not Available No t Available cetirizine 10 mg capsule Take 1 capsule by oral route at bedtime. active Not Available Not Available No t Available Centrum Silver 0.4 mg-300 mcg-250 mcg tablet Take 1 tablet every day by oral route. active Not Available Not Available No t Available Eliquis 5 mg tablet Take 1 tablet twice a day by oral route. active Not Available Not Available No t Available Farxiga 10 mg tablet Take 1 tablet every day by oral route as directed for 30 days. 2023 active Not Available Not Available Not Avai lable Jardiance 25 mg tablet Take 1 tablet every day by oral route. 01/11 completed Not Available Not Available Not Available True Metrix Glucose Test Strip Use strip to test blood glucose levels 2-4 times daily 2024 active Not Available Not Available Not Avai lable Entresto 24 mg-26 mg tablet Take 1 tablet twice a day by oral route. active Not Available Not Available No t Available Repatha SureClick 140 mg/mL subcutaneou s pen injector Inject 1 mL every 2 weeks by subcutane ous route as directed for 28 days. 07/21 completed Not Available Not Available Not Available insulin degludec (U-200) 200 unit/mL (3 mL) subcutaneou s pen Inject 24 units every day by subcutane ous route in the morning. active Not Available Not Available No t Available Ozempic 1 mg/dose (4 mg/3 mL) subcutaneou s pen injector Inject 1 mg every week by subcutane ous route as directed. 07/21 completed Not Available Not Available Not Available Ozempic 2 mg/dose (8 mg/3 mL) subcutaneou s pen injector Inject 2 mg every week by subcutane ous route as directed for 28 days. 03/07/ 2025 active Not Available Not Available Not Avai lable Zoryve 0.3 % topical cream active Not Available Not Available Not Available Zoryve 0.3 % topical foam APPLY A THIN LAYER TO THE AFFECTED AREA(S) BY TOPICAL ROUTE ONCE DAILY 2024 active Not Available Not Available Not Avai lable Vitals Date Recorded Body height Body mass index (BMI) Body weight Body temperature Heart rate Respiratory rate Oxygen saturation Oxygen saturation in Arterial blood by Pulse oximetry Systolic blood pressure Diastolic blood pressure Provider Name and Address Organization Details Last Updated DateTime 4 149.86 cm 43.5 kg/m2 86314.7 6 g 97.2 [degF] 78 /min 24 /min 95 % 95 % 134 mm[Hg] 64 mm[Hg] Nehal Stephenson RN [facility] [employer] [facility] 4 14:08:55 Date Recorded Body height Body mass index (BMI) Body weight Body temperature Heart rate Respiratory rate Oxygen saturation Oxygen saturation in Arterial blood by Pulse oximetry Systolic blood pressure Diastolic blood pressure Provider Name and Address Organization Details Last Updated DateTime 4 149.86 cm 42.4 kg/m2 78567.4 g 97.1 [degF] 83 /min 20 /min 93 % 93 % 120 mm[Hg] 80 mm[Hg] Nehal Stephenson RN [facility] [employer] [facility] 4 11:03:18 Date Recorded Body height Body mass index (BMI) Body weight Body temperature Oxygen saturation Oxygen saturation in Arterial blood by Pulse oximetry Systolic blood pressure Diastolic blood pressure Provider Name and Address Organization Details Last Updated DateTime 5 149.86 cm 40.8 kg/m2 60805.3 6 g 97 [degF] 92 % 92 % 180 mm[Hg] 64 mm[Hg] Nehal Stephenson RN [facility] [employer] [facility] 5 16:08:39 Date Recorded Body height Body mass index (BMI) Body weight Body temperature Oxygen saturation Oxygen saturation in Arterial blood by Pulse oximetry Heart rate Systolic blood pressure Diastolic blood pressure Provider Name and Address Organization Details Last Updated DateTime 5 149.86 cm 42.3 kg/m2 53864.5 6 g 97.2 [degF] 99 % 99 % 70 /min 150 mm[Hg] 70 mm[Hg] Celena Maldonado RN [facility] [employer] [facility] 5 17:18:42 Date Recorded Body height Body temperature Respiratory rate Heart rate Systolic blood pressure Diastolic blood pressure Provider Name and Address Organization Details Last Updated DateTime 5 149.86 cm 97 [degF] 24 /min 72 /min 150 mm[Hg] 110 mm[Hg] Nehal Stephenson RN [facility] [employer] [facility] 5 14:44:42 Social History Question Answer Notes LastModified by Organizat ion Details LastModified Time Tobacco Smoking Status Never Smoker Nehal Stephenson RN [facility], [facility] [employer] [facility] 01/11/2024 16:14:28 Do You Have An Advance Directive? Yes Steven Arenashaim dt- Son Information not available 01/20/2024 Are You Blind Or Do You Have Difficulty Seeing? No Information not available 01/11/2024 Is Blood Transfusion Acceptable In An Emergency? Yes Information not available 01/20/2024 What Is Your Code Status? Full Code Unless Brain Information not available 01/20/2024 In The 14 Days Before Symptom Onset, Have You Had Close Contact With A Laboratory-confir med COVID-19 While That Case Was Ill? No Information not available 01/11/2024 In The 14 Days Before Symptom Onset, Have You Had Close Contact With A Person Who Is Under Investigation For COVID-19 While That Person Was Ill? No Information not available 01/11/2024 Are You Deaf Or Do You Have Serious Difficulty Hearing? Yes Information not available 01/11/2024 What Type Of Diet Are You Following? REGULAR Information not available 01/11/2024 Are There Any Guns Present In Your Home? No Information not available 01/20/2024 Do You Use Insect Repellent Routinely? Yes Information not available 01/20/2024 Where Do You Live? [facility] Living Information not available 02/24/2024 Do You Have A Medical Power Of Curtain Cutter? Yes Information not available 01/20/2024 Do You Have Any Pets? Yes Information not available 01/11/2024 What Is Your Relationship Status? Information not available 01/11/2024 Do You Use Your Seat Belt Or Car Seat Routinely? Yes Information not available 01/11/2024 Do You Have Smoke And Carbon Monoxide Detectors In Your Home? Yes Information not available 01/11/2024 Are You Passively Exposed To Smoke? No Information no t available 01/20/2024 Are There Any Smokers In Your House? No Information not available 01/20/2024 Do You Participate In Social [email or web address]? No Information not available 01/11/2024 Do You Use Sunscreen Routinely? Yes Information not available 01/20/2024 Have You Recently Traveled Abroad? No Information not available 01/11/2024 Do You Have Difficulty Walking Or Climbing Stairs? Yes Information not available 01/11/2024 Sex: Unknown Functional Status Question Answer Note LastModified by Organizat ion Details LastModified Time What is your level of alcohol consumption? None Information not available 01/11/2024 Are you currently employed? No Information not available 01/11/2024 Do you have transportation difficulties? Yes Information not available 02/24/2024 Are you able to walk? YESASSIST Information not available 01/11/2024 Do you have difficulty doing errands alone? Yes Information not available 01/11/2024 Are you able to care for yourself? No Information not available 01/11/2024 Do you have difficulty dressing or bathing? Yes Information not available 01/11/2024 What is your exercise level? None Information not available 01/11/2024 Mental Status Question Answer Note LastModified by Organizat ion Details LastModified Time Do you feel stressed (tense, restless, nervous, or anxious, or unable to sleep at night)? [id number] Information not available 02/24/2024 Do you have difficulty concentrating, remembering or making decisions? Yes Information no t available 01/11/2024 Family History Nothing Reported. Medical History Condition Response ATHEROSCLEROSIS Y CHF Y GI PROBLEMS Y KIDNEY DISEASE Y DIABETES, TYPE Y HEART DISEASE/HEART PROBLEMS Y BAD TEETH Y ALLERGIES/HAYFEVER Y OTHER # 1 INSOMNIA Y HEARTBURN / REFLUX Y HYPERTENSION Y HIGH CHOLESTEROL / HYPERLIPIDEMIA Y ANXIETY DISORDER Y GERD/NAUSEA Y ASTHMA Y Do you have Advance directive? Y Gynecological History Statement/Question Response If Post Menopausal, Age at Menopause 48 Date of Last Pap Smear Date of Last Colonoscopy Most Recent Mammogram Most Recent Bone Density Obstetrics History GPAL:G 0 P 0 0 0 0 Past Encounters Encounter ID Performer Location Encounter Start Date Encounter Closed Date Diagnosis/Indication Diagnosis SNOMED-CT Code Diagnosis ICD10 Code Diagnosis Note [id number] Jamie Guajardo MD [address] [address] 01/11/2024 15:50:48 01/11/2024 17:00:40 History of myocardial infarction 789094388 I25.2 Screening for osteoporosis 786278998 Z13.820 Ophthalmic examination and evaluation 25278066 Z01.[address] [facility] th examination 148624588 Z00.00 Skin lesion 50256093 L98 .9 Type 2 matilda betes mellitus 79747701 E11.9 Chronic ki dney disease 476900984 N18.9 [id number] Jamie Guajardo MD [address] [address] 01/20/2024 13:47:50 01/20/2024 14:26:49 Type 2 diabetes mellitus 22225084 E11.9 A1C is 7.7, goal to decrease insulin. Added Orlandoxiga 01/10, increase Ozempic to 2 mg 01/19 Wheezing 26825369 R06.2 History of myocardial infarction 448468231 I25.2 [id number] Jamie Guajardo MD [address] [address] 02/24/2024 10:41:46 02/24/2024 11:25:10 Impaired mobility 32031799 Z74.09 Note provided to patient verifying need for medical wheelchair Discoloration of skin 32 96347 R23.8 Discolorat ion of WILLIAM feet, pt states this has been her normal for a while. Advised to discuss with Cardiology . Pt states she has an appointmen t this month. [id number] Jamie Guajardo MD [address] [address] 07/21/2024 15:51:29 07/21/2024 16:54:49 Fear of dentist 360779179 F40.232 Having all teeth removed within the next 30 days, has had many panic attacks about this, 2 of which required an EMS call and a trip to the ER.Advised to take Xanax only for SEVERE anxiety and to use sparingly. 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 Added Farxiga 01/10, increase Ozempic to 2 mg 01/19 History of myocardial infarction 743411222 I25.2 Advised to FU with Dr. Gonzalez [id number] Jamie Guajardo MD [address] [address] 08/21/2024 17:05:14 08/21/2024 17:57:01 Cellulitis of right lower limb 8196216587 9461660 L03.115 Localized swelling of right lower leg 2192956169 1976726 R22.41 Abnormal g ait due to muscle weakness 737462015 M62.81 Generalize d anxiety disorder 78495663 F41.1 Obesity 816860546 E66.9 Impaired mobility 815626 05 Z74.09 History of myocardial infarction 351435864 I25.2 [id number] Jamie Guajardo MD [address] [address] 08/29/2024 14:33:19 08/29/2024 14:58:21 Cellulitis of right lower limb 1598459240 8514805 L03.115 DId not take doxycyclin e last ordered, still has pain, erythema, swelling Edema of l ower extremity 172383050 R60.0 3+ pitting edema Seborrheic dermatitis of scalp 558740977 L21.0 Failed ketoconazo le and triamcinol oneZoryve given in office Health Concerns Section Related Observation LastModified by Organization Detai ls LastModified Time None Recorded Concern Status LastModified by Organization Details LastModified Time None Recorded Advance Directives Directive Y: Steven Perry- son Payers Encounter Date Sequence Insurance Name Policy Number Policy Figueroa Covered Member ID Figueroa Member ID Guarantor Name 01/20/2024 1 [place] Lizabeth F Vicky [id number] Lizabeth Vicky 01/20/2024 2 [place] [id number] Lizabeth Vicky [id number] Lizabeth Vicky 02/24/2024 1 [place] Lizabeth F Vicky [id number] Lizabeth Vicky 02/24/2024 2 [place] [id number] Lizabeth Vicky [id number] Lizabeth Vicky 07/21/2024 1 [place] Lizabeth F Vicky [id number] Lizabeth Vicky 07/21/2024 2 [place] [id number] Lizabeth Vicky [id number] Lizabeth Vicky 08/21/2024 1 [place] Lizabeth F Vicky [id number] Lizabeth Vicky 08/21/2024 2 [place] [id number] Lizabeth Vicky [id number] Lizaebth Vicky 08/29/2024 1 [place] Lizabeth F Vicky [id number] Lizabeth Vicky 08/29/2024 2 [place] [id number] Lizabeth Vicky [id number] Lizabeth Vicky Notes Date Note Type Note Provider Name and Address Organization Details Recorded Time 01/20/2024 text/html Lizabeth valentepineda is an 83 year old female patient here today to FU on labs from 01/10 LDL 73, would like under 50 since past IN A1C 7.7, added Farxiga at last visit, will increase Ozempic today. Complains of frequent wheezing sing IN. Recommended pulmonology, pt refused. Will give albuterol inhaler PRN DEBBIE Vega [address], [place], [address], [employer] 01/20/2024 14:25:51 02/24/2024 text/html Lizabeth duarte is an 83 year old female patient here today for a mobility [id number] She has limited mobility due generalized weakness secondary to a history of heart attack. She is currently in physical therapy. She has recently moved into an assisted living facility to help with mobility. A motorized wheelchair will greatly improve Lizabeth's mobility and independence, overall increasing her quality of life. Has concerns with peeling feet for the last week. She is taking Eliquis, but has been taking this for a long time . Patient states the peeling is stopped. Feet appear normal on evaluation, WILLIAM toes are slightly discolored. Advised to FU with tire fabricator for possible PVD. DEBBIE Vega [address] [facility] [address], [place], [address], [employer] 02/24/2024 11:21:32 07/21/2024 text/html Lizabeth duarte is an 83 year old female patient here today to for 3 month FU History of IN on 12/21/2023. Had 2 stents placed, did see Dr. Holliday but has not had a FU. LDL 73. Her past medical history is significant for hyperlipidemia. Last labs unknown, had recent IN. History of embolism of iliac artery. Anticoagulated with clopidogrel 75 mg and Eliquis 5 mg Type 2 DM and CKD 3 managed with insulin 24 u daily, jardiance and ozempic. Last A1C 7.7, taking farxiga, ozempic, insulin degludec Hypertension and CHF managed with furosemide 40 mg AM and 20 mg at noon, metoprolol 100 mg and entresto 24-26mg BID. BP on arrival 116/64. Overactive bladder, managed with oxybutynin. States this works well but with new furosemide admits to frequent urination Mixed anxiety/depression managed with venlafaxine 150 mg. States PHQ2 1 today. Admits depression is closely related to moving away from her daughter and her house that she was in for her last 32 years.Increased anxiety with panic lately GERD well controlled with pantoprazole. Had an operation in 2010 that helped. William ankle edema. Wears DAR hose and keeps feet elevated. Flu shot: recommended this fallCOVID vaccines: x3Tdap: 2019Shingrix: recommended at pharmacyPneumonia: PCV20 recommended at pharmacyMammogram: states 3 weeks ago, was normal she believesDexa: orderedWWE: done with theseColonoscopy: 2022, clear per pt DEBBIE Vega [address] [facility] [address], [place], [address], [employer] 07/21/2024 16:54:33 08/21/2024 text/html ACV:Here with he r son. Pt lives in an assisted living facility. C/o Rt lower leg area rash, redness and drainage for last few days. Pt says she was putting a lotion and noticed this. Denies any fall/injury to the area, denies any insect bite. C/o Rt leg swelling for last 1 week. Denies any recent fall/injury. 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 Denies any other concern. No chest pain/sob/fever/chill s/n/v/d. Jamie Guajardo MD [address] [facility] [facility] [address], [place], [address], [employer] 08/21/2024 17:43:11 08/29/2024 text/html Lizabeth duarte is an 84 year old female patient here today to follow up on cellulitis She notes she was seen here on 08/21/24, was given a rocephin injection and doxycycline PO, states she did not take the doxycycline but did take some old amoxicillin. Today has some pain, erythema and edema. Does have US order but hasn't gone yet. Her BP is elevated today.She is taking furosemide 20 mg PO daily, will increase to 40 mg DEBBIE Vega [address] [facility] [facility] [address], [place], [address], [place] [facility] [place] [employer] [facility] 08/29/2024 15:18:05 OBGyn Episode No OBEpisode recorded.
--- OUTSIDE RECORDS SUMMARY | 2024-10-03 11:59 | XMS_ITS | CONTINUITY OF CARE DOCUMENT ---
Author Name bhavanikwame bhavanikwame Address Unknown Organization [facility] Address [address] [facility] [address] [place] [address] Phone [phone] Care Team Providers Care Cylinder Worker Name Role Phone Alan Seo MD Unavailable Xiomaralpaz SALES ENGINEER ACCOUNT MANAGER, Glendo Unavailable [phone] Thilker SALES ENGINEER ACCOUNT MANAGER, Glendo Unavailable PROBLEMS Condition Status Date Provider Notes [...] In-person encounter Office Visit Alan Seo MD [facility] Cardiology examinationDiabetes, Type 2G E R [...] Ly lder height E&M 59 [in_i] Kendal acsper HISTORY OF MEDICATION USE Medication Status Instructions [...] Payer name Policy type / Coverage type [place] red democrat ID [facility] [id number] [place] [employer] Medicare [id number] ADVANCE DIRECTIVES Name Date DISCUSSED - NO [...]
[2024-10-03 12:21] LABS: Basophils Absolute Auto 0.1 K/mm3 (0.0-0.1); Basophils Percent Auto 0.8 % (0.2-1.2); Eosinophils Absolute Auto 0.4 K/mm3 (0-0.3); Eosinophils Percent Auto 6.5 % (0-4.4); Hematocrit 47.8 % (37.0-47.0); Hemoglobin 15.2 g/dL (12.0-15.0); Immature Granulocyte Absolute 0.01 K/mm3 (0.00-0.031); Immature Granulocyte Percent A 0.2 % (0-0.5); Lymphocytes Percent Auto 16.6 % (18.3-44.2); Mean Corpuscular HGB Conc 31.8 g/dl (32-36); Mean Corpuscular Hemoglobin 30.4 pg (26-34); Mean Corpuscular Volume 95.6 fl (80-100); Mean Platelet Volume 9.1 fl (7.4-10.4); Monocytes Absolute Auto 0.6 K/mm3 (0.1-0.6); Neutrophils Percent Auto 65.9 % (45.5-73.1); Platelet Count Result 179 k/mm3 (150-375); Red Cell Distribution Width 14.4 % (11.5-14.5)
[2024-10-03 12:34] LABS: Alanine Aminotransferase 22 U/L (6-35); Albumin Level 4.1 g/dL (3.5-5.1); Alkaline Phosphatase 74 U/L (38-126); Anion Gap 4 mmol/L (4-12); Aspartate Amino Transferase 38 U/L (14-36); Bilirubin,Total 0.6 mg/dL (0.2-1.3); Blood Urea Nitrogen 26 mg/dL (7-17); CRP < 0.5 mg/dL (<1.0); Calcium 9.5 mg/dL (8.4-10.2); Carbon Dioxide 35 mmol/L (22-30); Chloride 101 mmol/L (98-107); Estimated Glomerular Filt Rate 34; Glucose 95 mg/dL (65-110); Potassium 4.2 mmol/L (3.4-5.0); Sodium 140 mmol/L (137-145)
--- NOTE | 2024-10-03 12:39 | ED.GENADULT ---
HPI - General Adult General Chief complaint: Unspecified Stated complaint: right leg swelling, hallucinations Time Seen by Provider: 10/03/24 11:52 Source: patient Limitations: no limitations History of Present Illness HPI narrative: Patient presents with complaint of right leg swelling and redness for the past days. She states an aid in her assisted living facility told her it cellulitis but she not been prescribed any antibiotics as she has been unable to see a doctor (difficulties with transportation even though their office is close to where I live! ). Patient notes she also has some blood blisters on her left foot from stubbing it on something and accidentally dropped an object on right foot. She also notes that she has had 2 episodes of auditory and visual hallucinations. In one she had a conversation with her sister who she knows is . Then, she was talking with one of the facility staff people who then popped their head in and then she realized that they hadn't been in the room prior to that. Patient is not bothered by either these incidences. She denies any headache or shortness of breath. She states that she had a brief episode with visual change in which the 2D objects she was looking at seemed to briefly appear to be 3 dimensional but and that she denies any blurred or double vision. No confusion/altered mental status, or unilateral symptoms. Denies any fevers. She states she had multiple falls last year but no recent falls. She previously got around in a wheelchair/motorized scooter but I guess they took it away from me because I was being too much of a cargo bracer with it. Reports accidentally nearly hitting other residence when she was using it. No slurred speech though she notes that her speech is different than normal because she is currently in dentulous after accidentally throwing away her dentures and is in the process of getting new ones. Facility had reported per EMS that her blood sugar was 600. EMS reported a blood sugar 193. Patient states that around the time of breakfast this morning she was told her blood sugar was 139 and she was told her blood sugar was too low for her to get her morning dose of insulin she found this to be strange but then they did later give it to her. She sheepishly admits that her blood sugar might have been affected by the fact that at 3:00 a.m. this morning she had some cookies and jelly and a glass of wine. Related Data Home Medications ?Medication ?Instructions ?Recorded ?Confirmed ?Last Taken ?Type apixaban 2.5 mg tablet (Eliquis) 2.5 mg PO BID 03/20/24 03/20/24 Unknown History atorvastatin 80 mg tablet 80 mg PO HS 03/20/24 03/20/24 Unknown History betamethasone dipropionate 0.05 % 1 applic topical DAILY 03/20/24 03/20/24 Unknown History lotion clopidogrel 75 mg tablet 75 mg PO DAILY 03/20/24 03/20/24 Unknown History diphenhydramine 25 2 tablet PO HS 03/20/24 03/20/24 Unknown History mg-acetaminophen 500 mg tablet (Acetaminophen PM) empagliflozin 25 mg tablet 25 mg PO DAILY 03/20/24 03/20/24 Unknown History (Jardiance) furosemide 20 mg tablet 20 mg PO DAILY 03/20/24 03/20/24 Unknown History insulin degludec 200 unit/mL (3 22 unit subcut DAILY 03/20/24 03/20/24 Unknown History mL) subcutaneous pen loratadine 10 mg tablet (Allergy 10 mg PO HS 03/20/24 03/20/24 Unknown History Relief (loratadine)) metoprolol succinate 100 mg 100 mg PO BID 03/20/24 03/20/24 Unknown History tablet,extended release 24 hr miscellaneous medical supply 03/20/24 03/20/24 Unknown History (Ocusoft Eyelid Cleansing Pads) rofyxtsq-bvplpbn-zlqv-lutein tablet 1 tablet PO DAILY 03/20/24 03/20/24 Unknown History multivitamin with minerals 1 tablet PO DAILY 03/20/24 03/20/24 Unknown History (Hair,Skin and Nails tablet) sacubitril 24 mg-valsartan 26 mg 1 tablet PO BID 03/20/24 03/20/24 Unknown History tablet (Entresto) Allergies Allergy/AdvReac Type Severity Reaction Status Date / Time No Known Allergies Allergy Verified 02/09/24 15:07 [facility] Past Medical History Medical History Insulin dependent type 2 diabetes mellitus Social History Social History Smoking status: Never smoker Alcohol intake: current Do You Feel Safe in your Home?: Yes Lack of Transportation: No Lack of Food: Never True Current Housing: I Have Housing Concerned About Future Housing: No Difficulty Paying Gas/Electric Bills: No Difficulty Paying for Meds: No Currently Unemployed: No Education: High School Diploma/GED Difficulty w/ Childcare or Family Care: No Living arrangements: assisted living Additional living arrangements comments: [facility] Spiritual care concerns: No Exam Narrative: GENERAL: Well-appearing, well-nourished, and in no acute distress. HEAD: Normocephalic, atraumatic. EYES: Non injected, non icteric. Pupils grossly normal/symmetric ENT: Nares clear, no rhinorrhea or epistaxis. (Partially) edentulous NECK: Supple. CHEST: Speaking in full sentences. No respiratory distress. HEART: Regular rate and rhythm. ABDOMEN: Obese but Soft, nondistended. EXTREMITIES: Erythematous rash along distal right leg, circumferential, approximately 1/3 of distal alegria. Slightly warm to the touch compared to adjacent skin and contralateral legs. There are a few small fluid filled blisters along anterior surface and posteriorly. SKIN: Warm, dry. Rash on RLE as above. Patient also has two small sub 1 cm hemorrhagic blisters on large great toe and left 4th digit of foot. Left 4th digit subungal hematoma the encompasses 1/2 of the nail bed. Well healing scab from abrasion on dorsum of right foot. NEURO: No focal deficits. Alert and oriented x3. PSYCH: Normal mood and affect. Does not appear to be responding to internal stimuli. Course Vital Signs Vital signs: Vital Signs Temperature 98 F 10/03/24 10:21 Pulse Rate 69 10/03/24 10:21 Respiratory Rate 18 10/03/24 10:21 Blood Pressure 116/54 L 10/03/24 10:21 Pulse Oximetry 98 10/03/24 10:21 Oxygen Delivery Room Air 10/03/24 10:21 Temperature 97.8 F 10/03/24 16:21 Pulse Rate 75 10/03/24 16:21 Respiratory Rate 16 10/03/24 16:21 Blood Pressure 127/79 10/03/24 16:21 Pulse Oximetry 98 10/03/24 16:21 Oxygen Delivery Room Air 10/03/24 10:21 Medical Decision Making MDM Narrative Medical decision making narrative: This is an exceedingly pleasant 84-year-old female who presents with concern for right leg swelling and redness for the past 5 days. In the emergency department she is afebrile with acceptable vital signs although slightly low diastolic blood pressure. Mean arterial pressure is 74mmHg. Hemoglobin mildly elevated, has intermittently been seen before. Creatinine appears to be at baseline, consistent with underlying CKD. Her intermittent LFT elevations have also been appreciated before. No leukocytosis. Patient has cardiomegaly and pulmonary edema on x-ray however she is resting comfortably, does not have any shortness of breath and saturating appropriately on room air. Patient's rash on leg is classically cellulitis. Has not yet been on antibiotics so given first dose in the ED and rest of course prescribed. Subungual hematomas are greater than 48 hours old so no indication for trephination. Low TSH with normal T3/T4 suggests subclinical hyperthyroidism. Differential Diagnosis Differential Diagnosis: Cellulitis, stroke, NPH, Vitamin deficiency, thyroid disorder, respiratory failure, intracranial hemorrhage Vital Signs Vital Signs: Vital Signs Temperature 98 F 10/03/24 10:21 Pulse Rate 69 10/03/24 10:21 Respiratory Rate 18 10/03/24 10:21 Blood Pressure 116/54 L 10/03/24 10:21 Pulse Oximetry 98 10/03/24 10:21 Oxygen Delivery Room Air 10/03/24 10:21 Temperature 97.8 F 10/03/24 16:21 Pulse Rate 75 10/03/24 16:21 Respiratory Rate 16 10/03/24 16:21 Blood Pressure 127/79 10/03/24 16:21 Pulse Oximetry 98 10/03/24 16:21 Oxygen Delivery Room Air 10/03/24 10:21 Lab Data Lab results reviewed: Yes I reviewed the patient's lab results. Lab results narrative: Glucosuria 10/03/24 12:13 10/03/24 12:13 Labs: Lab Results 10/03/24 10/03/24 10/03/24 Range/Units 10:18 12:13 13:38 WBC 6.0 (4.5-10.0) K/mm3 RBC 5.00 (4.2-5.4) M/mm3 Hgb 15.2 H (12.0-15.0) g/dL Hct 47.8 H (37.0-47.0) % MCV 95.6 (80-100) fl MCH 30.4 (26-34) pg MCHC 31.8 L (32-36) g/dl RDW 14.4 (11.5-14.5) % Plt Count 179 (150-375) k/mm3 MPV 9.1 (7.4-10.4) fl Immature Gran % (Auto) 0.2 (0-0.5) % Neut % (Auto) 65.9 (45.5-73.1) % Lymph % (Auto) 16.6 L (18.3-44.2) % [place] % (Auto) 10.0 H (2.6-8.5) % Eos % (Auto) 6.5 H (0-4.4) % Baso % (Auto) 0.8 (0.2-1.2) % Lymph # (Auto) 1.00 (0.9-3.2) K/mm3 [place] # (Auto) 0.6 (0.1-0.6) K/mm3 Eos # (Auto) 0.4 H (0-0.3) K/mm3 Baso # (Auto) 0.1 (0.0-0.1) K/mm3 Abs Immat Gran (auto) 0.01 (0.00-0.031) K/mm3 Absolute Neuts (auto) 4.0 (1.3-6.7) K/mm3 Absolute Nucleated RBC 0.000 (0.0-0.012) K/mm3 Nucleated RBC % 0.0 (0.0-0.2) % ESR 21 H (0-20) mm/hr Sodium 140 (137-145) mmol/L Potassium 4.2 (3.4-5.0) mmol/L Chloride 101 (98-107) mmol/L Carbon Dioxide 35 H (22-30) mmol/L Anion Gap 4 (4-12) mmol/L BUN 26 H D (7-17) mg/dL Creatinine 1.45 H (0.7-1.0) mg/dL Estim Creat Clear Calc Not Reportable Estimated GFR 34 L (59 - ) Glucose 95 (65-110) mg/dL POC Capillary Glucose 198 H (65-105) mg/dl Calcium 9.5 (8.4-10.2) mg/dL Total Bilirubin 0.6 (0.2-1.3) mg/dL AST 38 H (14-36) U/L ALT 22 (6-35) U/L Alkaline Phosphatase 74 (38-126) U/L C-Reactive Protein < 0.5 (<1.0) mg/dL Total Protein 7.0 (6.3-8.2) g/dL Albumin 4.1 (3.5-5.1) g/dL Vitamin B12 625.0 (239-931) pg/mL Folate > 20.0 H (2.76->20) ng/mL TSH 0.028 L (0.465-4.680) uIU/mL Thyroxine (T4) 9.44 (5.53-11.0) ug/dL Free T3 pg/mL 3.93 (2.34-5.61) pg/mL Urine Color Yellow (Yellow) Urine Appearance Clear (Clear) Urine pH 5.5 (5.0-9.0) Ur Specific [place] 1.010 (1.001-1.035) Urine Protein Negative (Negative) mg/dL Urine Glucose (UA) 2+ H (Negative) mg/dL Urine Ketones Negative (Negative) mg/dL Ur Blood (Man) Negative (Negative) Urine Nitrate Negative (Negative) Urine Bilirubin Negative (Negative) Urine Urobilinogen 0.2 (<2.0) mg/dL Leukocyte Esterase Rfl Negative (Negative) SHANTELL/UL Imaging Data Radiologist's impression: Impressions Head CT 10/03/24 12:29 IMPRESSION: 1. 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 No acute intracranial process. Chest X-Ray 10/03/24 12:32 IMPRESSION: Cardiomegaly with cardiac decompensation and pulmonary edema. Pneumonitis is not excluded. Clinical correlation advised. Discharge Plan Discharge Clinical Impression: Elevated hemoglobin, CKD (chronic kidney disease), Cellulitis of leg, right, Glucosuria, Auditory hallucination, Hallucinations, visual, Subungual hematoma of left foot Patient Disposition: NH Prison/Asst Living Condition: Stable Instructions: Antibiotic Form, Chronic Kidney Disease (ED), Cellulitis (ED), Chronic Kidney Disease Diet (DC), Hallucinations (ED) Additional Instructions: I agree that the warmth redness and blisters on her leg appear to be a skin infection on a cellulitis. Take the course of antibiotics prescribed. You received your 1st dose in the emergency department. Follow-up with your primary care physician. Return to the emergency department with any new or worsening symptoms. Your kidney function appears the same as previous. No clear cause of your hallucinations, possibly due to the infection. Otherwise your thyroid function and Vitamin B12 are essentially normal. No signs of UTI. Patient Language: Greenlandic Prescriptions: New cephalexin 500 mg capsule 500 mg PO Q6H 5 Days Qty: 19 0RF Rx Instructions: received first dose in ED 10/03 afternoon No Action atorvastatin 80 mg Tablet 80 mg PO HS metoprolol succinate 100 mg Tablet Extended Release 24 Hr 100 mg PO BID clopidogrel 75 mg Tablet 75 mg PO DAILY furosemide 20 mg Tablet 20 mg PO DAILY Hair,Skin and Nails Tablet 1 tablet PO DAILY diphenhydramine-acetaminophen [Acetaminophen PM] 25-500 mg Tablet 2 tablet PO HS betamethasone dipropionate 0.05 % Lotion 1 applic TOPICAL DAILY Rx Instructions: apply to affected areas loratadine [Allergy Relief (loratadine)] 10 mg Tablet 10 mg PO HS kiifejpa-pugoeso-ykig-lutein Tablet 1 tablet PO DAILY (DME) Ocusoft Eyelid Cleansing Pads Pad MISCELLANEOUS Rx Instructions: use as directed at bedtime Eliquis 2.5 mg Tablet 2.5 mg PO BID insulin degludec 200 unit/mL (3 mL) Insulin Pen 22 unit SUBCUT DAILY Jardiance 25 mg Tablet 25 mg PO DAILY Entresto 24-26 mg Tablet 1 tablet PO BID Follow-up/Referrals: Annie,Gerri Hernandez, YOUTH SUPPORT WORKER [Primary Care Provider] - Stand Alone Forms: Correction Discharge Time of Disposition: 16:03
[2024-10-03 13:03] LABS: Thyroid Stimulating Hormone 0.028 uIU/mL (0.465-4.680)
[2024-10-03 13:39] LABS: Folic Acid > 20.0 ng/mL (2.76->20)
[2024-10-03 13:56] LABS: Add Urine Microscopic? NO; Appearance Urine Clear (Clear); Bilirubin Urine Negative (Negative); Blood Urine Negative (Negative); Color Urine Yellow (Yellow); Glucose Urine UA 2+ mg/dL (Negative); Ketones Urine Negative (Negative); Leukocyte Esterase Ur Negative LEU/UL (Negative); Nitrate Urine Negative (Negative); Protein Urine Negative (Negative); Urobilinogen Urine 0.2 mg/dL (<2.0); pH Urine 5.5 (5.0-9.0)
[2024-10-03 14:28] LABS: Erythrocyte Sedimentation Rate 21 mm/hr (0-20)
[2024-10-03 15:16] LABS: T4 Thyroxine 9.44 ug/dL (5.53-11.0)
[2024-10-03 15:19] LABS: Free T3 3.93 pg/mL (2.34-5.61)
[2024-10-03] MEDS: CEPHALEXIN 500 MG CAPSULE PO (15:20)
[2024-10-03 16:21] VITALS: BP 127/79; PULSE 75; RESP 16; TEMP 36.6; O2SAT 98
== END 2024-10-03 16:27 ==
PROVIDERS: Emergency Provider Student in an Organized Health Care Education/Training Program
DX: L03.115 Cellulitis of right lower limb (principal); E11.22 Type 2 diabetes mellitus with diabetic chronic kidney disease; N18.9 Chronic kidney disease, unspecified; R44.0 Auditory hallucinations; R44.1 Visual hallucinations; S90.222A Contusion of left lesser toe(s) with damage to nail, initial encounter; R71.8 Other abnormality of red blood cells; Z79.899 Other long term (current) drug therapy; Z79.4 Long term (current) use of insulin; Z79.84 Long term (current) use of oral hypoglycemic drugs; I51.7 Cardiomegaly; J81.1 Chronic pulmonary edema; W22.8XXA Striking against or struck by other objects, initial encounter
CPT/HCPCS: 36415; 70450; 71045; 80053; 81003; 82607; 82746; 82948; 84436; 84443; 84481; 85025; 85652; 86140; 99284; A9270

== ENCOUNTER 2024-12-06 06:27 | Emergency (ER) | payer MEDICARE, BC, SELFPAY ==
[2024-12-06] VITALS (12 sets, daily range): BP systolic 71–137; BP diastolic 31–89; PULSE 71–77; RESP 13–24; TEMP 36.4–36.8; O2SAT 95–100
--- NOTE | ~2024-12-06 | XR_ITS ---
EXAM/PROCEDURE: XR chest 2V - 12/06/2024 9:00 CDT HISTORY: 84 years old Female with FALL TECHNIQUE: Two view(s) of the chest. COMPARISON: None available. FINDINGS: LUNGS/ PLEURA: Mild vascular congestion, bilateral interstitial and alveolar opacities. HEART/ MEDIASTINUM: Mild cardiomegaly. BONES: Degenerative changes. Diffuse osteopenia, limiting evaluation of nondisplaced fractures. OTHER: Visualized upper abdomen is unremarkable. IMPRESSION: Mild pulmonary edema. Superimposed infection cannot be excluded. Clinical correlation is recommended. Reviewed, dictated and finalized at location A. IMPRESSION: Mild pulmonary edema. Superimposed infection cannot be excluded. Clinical corre lation is recommended.
--- NOTE | ~2024-12-06 | CT_ITS ---
EXAMINATION: CT brain wo con DATE: 12/06/2024 07:13 INDICATION: Status post fall. Head trauma. TECHNIQUE: Computed tomography (CT) of the head was performed without intravenous contrast. The dose- length product was 605.33 mGy-cm. Automated exposure control and iterative reconstruction technique w ere employed. COMPARISON: CT dated 10/03/2024 FINDINGS: There is left periorbital soft tissue hematoma. Generalized atrophy. There are scattered mi ld periventricular and subcortical white matter changes, most likely related to small vessel ischemic disease (microangiopathy). No acute intracranial hemorrhage, infarction, mass or mass effect. No tonia triculomegaly or midline shift. Midline sagittal images are unremarkable with normal corpus callosum and craniovertebral junction. There are focal calcifications in the brainstem, nonspecific. IMPRESSION: 1. No acute intracranial abnormality. 2: Left periorbital soft tissue hematoma. Reviewed, dictated and finalized at location A.
--- NOTE | ~2024-12-06 | CT_ITS ---
EXAMINATION: CT cervical spine wo con DATE: 12/06/2024 07:13 INDICATION: Status post fall. Neck pain. TECHNIQUE: Computed tomography (CT) of the cervical spine was performed without intravenous contrast. The dose-length product was 494 mGy-cm. Automated exposure control and iterative reconstruction tech nique were employed. COMPARISON: No prior studies for comparison. FINDINGS: There is degenerative disc disease at multiple levels most advanced at C5-6, C6-7 and C7-T1 . There is degenerative anterolisthesis at C4-5, C7-T1 and T1-2. There is moderate-severe multilevel uncinate and facet hypertrophy. Odontoid process is normal. Lateral masses normally aligned. There is scarring in the lung apices. No significant paraspinal soft tissue abnormality. No acute fracture or traumatic malalignment. No evidence for perched facet. Spinous processes are unremarkable. IMPRESSION: 1. No acute fracture. 2: Severe cervical spondylosis. Reviewed, dictated and finalized at location A.
--- NOTE | 2024-12-06 07:09 | ED_ITS ---
HPI - Fall General Chief Complaint: Fall Stated Complaint: fall Time Seen by Provider: 12/06/24 07:00 Source: patient and EMS Mode of arrival: EMS History of Present Illness HPI Narrative: 84 YEARS OLD WHITE FEMALE TRIPPED ON HER SHOES AND FELL LANDED FLAT ON HER FACE, LEFT FOREHEAD HEMATOMA AND LACERATION. NO LOSS OF CONSCIOUSNESS COMPLAINING OF LEFT FOREHEAD HEADACHE AND LEFT NECK PAIN. SHE DENIES OTHER INJURIES. HISTORY OF FREQUENT FALL LAST 16 APRIL 2024. PATIENT DENIES LIGHTHEADEDNESS OR DIZZINESS OR PALPITATION OR CHEST PAIN OR SHORTNESS OF BREATH OR BACK PAIN OR EXTREMITY PAIN. MD complaint: fall Related Data Home Medications ?Medication ?Instructions ?Recorded ?Confirmed ?Last Taken ?Type apixaban 2.5 mg tablet (Eliquis) 2.5 mg PO BID 03/20/24 03/20/24 Unknown History atorvastatin 80 mg tablet 80 mg PO HS 03/20/24 03/20/24 Unknown History betamethasone dipropionate 0.05 % 1 applic topical DAILY 03/20/24 03/20/24 Unknown History lotion clopidogrel 75 mg tablet 75 mg PO DAILY 03/20/24 03/20/24 Unknown History diphenhydramine 25 2 tablet PO HS 03/20/24 03/20/24 Unknown History mg-acetaminophen 500 mg tablet (Acetaminophen PM) empagliflozin 25 mg tablet 25 mg PO DAILY 03/20/24 03/20/24 Unknown History (Jardiance) furosemide 20 mg tablet 20 mg PO DAILY 03/20/24 03/20/24 Unknown History insulin degludec 200 unit/mL (3 22 unit subcut DAILY 03/20/24 03/20/24 Unknown History mL) subcutaneous pen loratadine 10 mg tablet (Allergy 10 mg PO HS 03/20/24 03/20/24 Unknown History Relief (loratadine)) metoprolol succinate 100 mg 100 mg PO BID 03/20/24 03/20/24 Unknown History tablet,extended release 24 hr miscellaneous medical supply 03/20/24 03/20/24 Unknown History (Ocusoft Eyelid Cleansing Pads) swdcjqol-gcnfzyh-wqaa-lutein tablet 1 tablet PO DAILY 03/20/24 03/20/24 Unknown History multivitamin with minerals 1 tablet PO DAILY 03/20/24 03/20/24 Unknown History (Hair,Skin and Nails tablet) sacubitril 24 mg-valsartan 26 mg 1 tablet PO BID 03/20/24 03/20/24 Unknown History tablet (Entresto) Allergies Allergy/AdvReac Type Severity Reaction Status Date / Time No Known Allergies Allergy Verified 12/06/24 08:59 Review of Systems 2 Review of Systems: All systems reviewed & are unremarkable except as noted in HPI and below PMFSH Past Medical History Medical History Insulin dependent type 2 diabetes mellitus Social History Social History Smoking status: Never smoker Alcohol intake: current Do You Feel Safe in your Home?: Yes Lack of Transportation: No Lack of Food: Never True Current Housing: I Have Housing Concerned About Future Housing: No Difficulty Paying Gas/Electric Bills: No Difficulty Paying for Meds: No Currently Unemployed: No Education: High School Diploma/GED Difficulty w/ Childcare or Family Care: No Living arrangements: assisted living Additional living arrangements comments: [facility] Spiritual care concerns: No Exam 2 Narrative: GENERAL APPEARANCE: WELL-DEVELOPED, WELL-NOURISHED SKIN: NORMAL COLOR HEAD: LEFT FOREHEAD HEMATOMA, 1.5 CM SKIN ABRASION ACROSS THE HEMATOMA, NO ACTIVE BLEEDING EYES: CLEAR CONJUNCTIVA ENT: OROPHARYNX NORMAL, EARS NORMAL, NOSE NORMAL NECK: DIFFUSE TENDERNESS, C-COLLAR ON CHEST AND RESPIRATORY: AIRWAY PATENT, NO RESPIRATORY DISTRESS, NO ACCESSORY MUSCLE USE HEART: REGULAR RATE/RHYTHM ABDOMEN: SOFT, NONTENDER, NO ORGANOMEGALY, QUIET BOWEL SOUNDS VASCULAR: NORMAL PERIPHERAL PULSES, NORMAL CAPILLARY REFILL. 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, NO GROSS MOTOR DEFICIT Course Vital Signs Vital signs: Vital Signs Temperature 36.8 C 12/06/24 06:28 Pulse Rate 71 12/06/24 06:28 Respiratory Rate 18 12/06/24 06:28 Blood Pressure 112/44 L 12/06/24 06:28 Pulse Oximetry 95 12/06/24 06:28 Oxygen Delivery Room Air 12/06/24 06:28 Temperature 36.4 C 12/06/24 09:47 Pulse Rate 71 12/06/24 09:47 Respiratory Rate 22 H 12/06/24 09:47 Blood Pressure 123/40 L 12/06/24 09:47 Pulse Oximetry 98 12/06/24 09:47 Oxygen Delivery Room Air 12/06/24 06:28 Procedures Laceration Laceration 1: Date: 12/06/24 Site: face Side (If applicable): left Description: linear Depth: simple, single layer Local Anesthetic: lidocaine 1% and with epi Amount of anesthesia used (mL): 5 Pre-repair: deep structures intact and other (HEMATOMA) ====== Skin Level ====== Skin layer closed with: nylon Size (cm): 5-0 Number of sutures: 5 Technique: simple, interrupted ====== Subcutaneous Layer ====== Size: 5-0 ====== Muscle Layer ====== ====== Tendon Layer ====== MDM - Fall MDM Narrative Medical decision making narrative: PATIENT TRIPPED AND FELL VITAL SIGNS ARE STABLE PHYSICAL EXAMINATION SHOWING LEFT FOREHEAD HEMATOMA/LACERATION DIFFERENTIAL DIAGNOSIS FALL SECONDARY TO TRIPPING, ORTHOSTATIC HYPOTENSION, ELECTROLYTE IMBALANCE, DEHYDRATION, URINARY TRACT INFECTION BLOOD WORKUP TODAY INCLUDES CBC, CMP, BLOOD CULTURE, TROPONIN SHOWED EKG ON ARRIVAL SHOWED CHEST X-RAY SHOWED PULMONARY EDEMA, QUESTIONABLE SUPERIMPOSED INFECTION, PATIENT DENIES ANY SHORTNESS OF BREATH, CHEST PAIN OR COUGHING OR FEVER OR CHILLS WBC WITHIN NORMAL LIMIT PATIENT HAVE NO FEVER CT HEAD AND CERVICAL SPINE WITHOUT CONTRAST SHOWED NO ACUTE ABNORMALITIES LEFT FOREHEAD HEMATOMA OTHERWISE WITHIN NORMAL LIMIT URINALYSIS SHOWED NO ACUTE ABNORMALITIES. DIAGNOSIS FALL, LEFT FOREHEAD HEMATOMA/LACERATION THE PT WAS DISCHARGED TO HOME.THE PT,S CONDITION UPON DISCHARGE WAS FAIR,EDUCATION WAS PROVIDED TO THE PT IN REFERENCE TO THE FINAL IMPRESSION,DISCHARGE STUDY RESULTS,TREATMENT,PROGNOSIS AND NEED FOR FOLLOW UP . Differential Diagnosis Differential diagnosis: Likely other ( ABOVE) Medical Records Attestation: I reviewed the patient's medical records. Lab Data Attestation: I reviewed the patient's lab results. 12/06/24 08:28 12/06/24 08:28 Labs: Lab Results 12/06/24 12/06/24 Range/Units 08:28 09:54 WBC 6.8 (4.5-10.0) K/mm3 RBC 5.30 (4.2-5.4) M/mm3 Hgb 15.9 H (12.0-15.0) g/dL Hct 49.2 H (37.0-47.0) % MCV 92.8 (80-100) fl MCH 30.0 (26-34) pg MCHC 32.3 (32-36) g/dl RDW 14.7 H (11.5-14.5) % Plt Count 166 (150-375) k/mm3 MPV 9.5 (7.4-10.4) fl Immature Gran % (Auto) 0.4 (0-0.5) % Neut % (Auto) 75.3 H (45.5-73.1) % Lymph % (Auto) 13.3 L (18.3-44.2) % Bertie % (Auto) 8.0 (2.6-8.5) % Eos % (Auto) 2.4 (0-4.4) % Baso % (Auto) 0.6 (0.2-1.2) % Lymph # (Auto) 0.90 (0.9-3.2) K/mm3 Bertie # (Auto) 0.5 (0.1-0.6) K/mm3 Eos # (Auto) 0.2 (0-0.3) K/mm3 Baso # (Auto) 0.0 (0.0-0.1) K/mm3 Abs Immat Gran (auto) 0.03 (0.00-0.031) K/mm3 Absolute Neuts (auto) 5.1 (1.3-6.7) K/mm3 Absolute Nucleated RBC 0.000 (0.0-0.012) K/mm3 Nucleated RBC % 0.0 (0.0-0.2) % PT 16.4 H (11.1-14.7) Seconds INR 1.3 APTT 27.2 (22.3-36.8) Seconds Sodium 138 (137-145) mmol/L Potassium 4.0 (3.4-5.0) mmol/L Chloride 99 (98-107) mmol/L Carbon Dioxide 28 (22-30) mmol/L Anion Gap 11 (4-12) mmol/L BUN 27 H (7-17) mg/dL Creatinine 1.38 H (0.7-1.0) mg/dL Estim Creat Clear Calc Not Reportable Estimated GFR 37 L (59 - ) Glucose 137 H (65-110) mg/dL Lactic Acid 1.4 (0.7-2.0) mmol/L Calcium 10.4 H (8.4-10.2) mg/dL Total Bilirubin 1.0 (0.2-1.3) mg/dL AST 38 H (14-36) U/L ALT 21 (6-35) U/L Alkaline Phosphatase 91 (38-126) U/L Troponin I 0.024 (0.000-0.034) ng/mL C-Reactive Protein < 0.5 (<1.0) mg/dL Total Protein 7.9 (6.3-8.2) g/dL Albumin 4.3 (3.5-5.1) g/dL Urine Color Yellow (Yellow) Urine Appearance Clear (Clear) Urine pH 5.5 (5.0-9.0) Ur Specific [place] 1.015 (1.001-1.035) Urine Protein Negative (Negative) mg/dL Urine Glucose (UA) 3+ H (Negative) mg/dL Urine Ketones Negative (Negative) mg/dL Ur Blood (Man) Negative (Negative) Urine Nitrate Negative (Negative) Urine Bilirubin Negative (Negative) Urine Urobilinogen 0.2 (<2.0) mg/dL Leukocyte Esterase Rfl Negative (Negative) SHANTELL/UL Imaging Data Radiologist's impression: Impressions Cervical Spine CT 12/06/24 07:17 IMPRESSION: 1. No acute fracture. 2: Severe cervical spondylosis. Head CT 12/06/24 07:21 IMPRESSION: 1. No acute intracranial abnormality. 2: Left periorbital soft tissue hematoma. Critical Care Time Critical Care Time Critical Care Time: No Discharge Plan Discharge Clinical Impression: Hematoma, Face lacerations [facility] Condition: Improved Instructions: Antibiotic Form, Hematoma (ED), Facial Laceration (ED) Additional Instructions: RETURN IF SYMPTOMS ARE WORSENING , CALL YOUR FAMILY PHYSICIAN FOR APPOINTMENT, TAKE TYLENOL NEEDED FOR ACHES AND PAIN, CONTINUE HOME MEDICATIONS. TOPICAL NEOSPORIN T.I.D. REMOVE SUTURES IN 5 DAYS Patient Language: Iranian Prescriptions: New cephalexin 500 mg capsule 500 mg PO Q8H Qty: 21 0RF No Action atorvastatin 80 mg Tablet 80 mg PO HS metoprolol succinate 100 mg Tablet Extended Release 24 Hr 100 mg PO BID clopidogrel 75 mg Tablet 75 mg PO DAILY furosemide 20 mg Tablet 20 mg PO DAILY Hair,Skin and Nails Tablet 1 tablet PO DAILY diphenhydramine-acetaminophen [Acetaminophen PM] 25-500 mg Tablet 2 tablet PO HS betamethasone dipropionate 0.05 % Lotion 1 applic TOPICAL DAILY Rx Instructions: apply to affected areas loratadine [Allergy Relief (loratadine)] 10 mg Tablet 10 mg PO HS xybkaklc-bdxgzjy-ifwu-lutein Tablet 1 tablet PO DAILY (DME) Ocusoft Eyelid Cleansing Pads Pad MISCELLANEOUS Rx Instructions: use as directed at bedtime Eliquis 2.5 mg Tablet 2.5 mg PO BID insulin degludec 200 unit/mL (3 mL) Insulin Pen 22 unit SUBCUT DAILY Jardiance 25 mg Tablet 25 mg PO DAILY Entresto 24-26 mg Tablet 1 tablet PO BID cephalexin 500 mg capsule 500 mg PO Q6H 5 Days Qty: 19 0RF Rx Instructions: received first dose in ED 10/03 afternoon Follow-up/Referrals: Annie,Gerri Hernandez, END PACKER [Primary Care Provider] -
--- OUTSIDE RECORDS SUMMARY | 2024-12-06 07:23 | XMS_ITS | Data Portability ---
Author Organization [place] - [email or web address], [facility], [facility] Address [address] [place] [address] Care Team Providers Care Practice Advisor Name Role Phone ELMER FLORES Primary Care Provider [phone] ELMER FLORES Referring Provider Assessment No assessment recorded. Plan of Treatment Reminders Order Date Submit Date Provider Last Modified By Organization Details Last Modified Time Details Appointments None record ed. Lab PT/INR 017 09/29/19 17 [email or web address] [email or web address] In-Office Order, Internal Use Only DO Not Attach Compendium DO Not Attach Compendium, Do Not Delete/merge, [id number] 11:16:29 PT/INR 017 09/25/19 17 [email or web address] n1 In-Office Order, Internal Use Only DO Not Attach Compendium DO Not Attach Compendium, Do Not Delete/merge, [id number] 10:04:49 PT/INR 017 09/22/19 17 [email or web address] n1 In-Office Order, Internal Use Only DO Not Attach Compendium DO Not Attach Compendium, Do Not Delete/merge, [id number] 12:15:57 PT/INR 017 09/18/19 17 [email or web address] n1 In-Office Order, Internal Use Only DO Not Attach Compendium DO Not Attach Compendium, Do Not Delete/merge, [id number] 14:59:28 Referral None record ed. Procedures [...] DO Not Attach Compendium, Do Not Delete/merge, 09/28/2016 09:20:43 09/29/19 17 09/28/2016 PT/IN R INR 1.4 ratio 0.8-1. 2 Not Available In-Office Order Internal Use Only DO Not Attach Compendium DO Not Attach Compendium, Do Not Delete/merge, 09/28/2016 09:20:43 09/25/19 17 09/24/2016 PT/IN R protime 16.1 secs 10.8-1 2.8 Not Available In-Office Order Internal Use Only DO Not Attach Compendium DO Not Attach Compendium, Do Not Delete/merge, [id number] 09/24/2016 09:05:07 09/25/19 17 09/24/2016 PT/IN R INR 1.3 ratio 0.8-1. 2 Not Available In-Office Order Internal Use Only DO Not Attach Compendium DO Not Attach Compendium, Do Not Delete/merge, [id number] 09/24/2016 09:05:07 09/22/19 17 09/21/2016 PT/IN R protime 16.1 secs 10.8-1 2.8 Not Available In-Office Order Internal Use Only DO Not Attach Compendium DO Not Attach Compendium, Do Not Delete/merge, 09/21/2016 09:47:13 09/22/19 17 09/21/2016 PT/IN R INR 1.3 ratio 0.8-1. 2 Not Available In-Office Order Internal Use Only DO Not Attach Compendium DO Not Attach Compendium, Do Not Delete/merge, [id number] 09/21/2016 09:47:13 09/18/19 17 09/17/2016 PT/IN R protime 49.8 secs 10.8-1 2.8 Not Available In-Office Order Internal Use Only DO Not Attach Compendium DO Not Attach Compendium, Do Not Delete/merge, [id number] 09/17/2016 14:55:50 09/18/19 17 09/17/2016 PT/IN R INR 4.2 ratio 0.8-1. 2 Not Available In-Office Order Internal Use Only DO Not Attach Compendium DO Not Attach Compendium, Do Not Delete/merge, [id number] 09/17/2016 14:55:50 Result Notes None recorded. Problems Name Problem SNOMED Code Status Onset Date Resolution Date Notes Provider Name and Address Organization Details Recorded Time Long-term current use of anticoagulant 975688035 Active 2016 TUSHAR Bianchi [phone], [place], [address], [facility], [facility] 14:55:44 Atrial fibrillation 25916288 Active 2016 TUSHAR Bianchi [address], [place], [address], [facility], [facility] 14:55:46 Problem Notes None recorded. Procedures Surgical History Date Name Laterality Status Provider Name and Address Organization Details Recorded Time 017 Mammogram Screening completed [facility], [facility] 09/17/2016 14:17:02 017 Electrocardiogram complete completed [facility] 09/17/2016 14:17:46 017 Echocardiography contrast completed [facility] 09/17/2016 14:18:12 017 Chest x-ray 2vw frontal&latl completed [facility] 09/17/2016 14:18:28 016 Colonoscopy completed [facility] 09/17/2016 14:16:32 015 Other completed [facility] 09/17/2016 14:16:45 015 Other completed [facility], [facility] 09/17/2016 14:17:18 014 Unlisted px ant segment eye completed [facility] 09/17/2016 14:16:22 011 Valve replacement/repair completed [facility] 09/17/2016 14:16:06 section completed [facility] 09/17/2016 14:15:52 Imaging Results None recorded. [...] Available pen needle, diabetic 32 gauge x 5/32 active Not Available Not Available Not Available Toulayla SoloStar U-300 Insulin 300 unit/mL (1.5 mL) subcutaneou s pen Inject 66 units every day by subcutane ous route. active Not Available Not Available No t Available Fluzone High-Dose 6023-1623 (PF) 180 mcg/0.5 mL intramuscul ar syringe [...] /min 96 % 96 % Julissa Watts [facility], [facility] 7 14:03:42 Date Recorded Body height Provider Name an d Address Organization Details Last Updated DateTime 09/21/2016 149.86 cm Celena Monsalve [facility], [facility] 09/21/2016 09:46:51 Date Recorded Body height Body weight Body mass index (BMI) Systolic And Diastolic Provider Name and Address Organization Details Last Updated DateTime 09/24/2016 149.86 cm 046354.35 g 54.3 kg/m2 128/68 mm[Hg] Celena Monsalve [facility], [facility] 09/24/2016 09:04:58 Social History Question Answer Notes LastModified by [employer] Details LastModified Time Tobacco Smoking Status Never Smoker [facility] 09/17/2016 14:13:01 Do You Have An Advance [...] Functional Status Question Answer Note LastModified by [facility] Details LastModified Time What is your level [...] high-dose, trivalent, PF 6 completed Julissa bush [facility] 09/17/2016 14:23:52 pneumococcal polysaccharide PPV23 7 completed Julissa bush [facility] 09/17/2016 14:24:06 zoster live 5 [facility] 14:24:20 Past Encounters Encounter ID Performer Location Encounter Start Date Encounter Closed Date Diagnosis/Indication Diagnosis SNOMED-CT Code Diagnosis ICD10 Code Diagnosis Note [id number] TUSHAR Griffin [facility] [address] [place] [address] 09/17/2016 13:43:14 09/17/2016 15:05:59 Atrial fibrillation 84145326 I48.0 Rate controlled , on anticoagul ation. Long-term current use of anticoagulant 713675459 Z79.01 Will check PT/INR. Pt on 9 mg of Warfarin daily. INR high. Pt to hold Warfarin and restart at 5 mg on Wednesday. Will recheck PT/INR on Wednesday [id number] TUSHAR Griffin [facility] [address] [place] [address] 09/21/2016 09:17:15 09/21/2016 10:11:36 Atrial fibrillation 31856995 I48.0 Subtherape utic. Will recheck lab on . [id number] TUSHAR Griffin [facility] [address] [facility] [place] [address] 09/24/2016 08:59:51 09/24/2016 09:24:20 Atrial fibrillation 83083738 I48.0 Subtherape utic. Will recheck lab on . Long-term current use of anticoagulant 618362332 Z79.01 INR low. Will increase Warfarin to 7.5 mg daily and recheck INR on Wednesday [id number] [facility] [address] [place] [address] 09/28/2016 09:11:17 09/28/2016 11:09:14 Atrial fibrillation 41506256 I48.0 Subtherape utic. Warfarin increased to 10 [...] Figueroa Member ID Guarantor Name 09/23/2016 2 [facility] [id number] Lizabeth Perry [id number] Lizabeth Perry 11/26/2017 1 [place] Lizabeth Perry [id number] Lizabeth Perry Notes Date Note Type [...] needs to have PT/INR Elmer Flores MD [address] [address], [place], [address], [facility] - [facility], [facility] 09/18/2016 10:09:43 OBGyn Episode No OBEpisode recorded.
--- OUTSIDE RECORDS SUMMARY | 2024-12-06 07:23 | XMS_ITS | Clinical Summary ---
Author Organization [facility] Address [facility] [place] [address] Care Team Providers Care Manager [employer] Name Role Phone Unavailable Primary Care Provider Unavailabl e Social History Tobacco Use Types Packs/Day Years Used Date Smoking Tobacco: Never Assessed Comments Unknown Sex and Gender Information Value Date Recorded Sex Assigned at Not on file Legal Sex Female 11:28 AM CDT Gender Identity Not on file Sexual Orientation Not on file Plan of Treatment Upcoming Encounters Date Type Department Care Team (Late st Contact Info) Description 01/12/2025 9:40 AM CDT Office Visit [facility] - [facility] [address] [facility], [address] [place] [phone] Christine Maldonado NP 3 [facility] [address] [place] [id number] Health Maintenance Due Date Last Done Comments DTaP, Tdap and Td Vaccines ( 1 - Tdap) 1959 Pneumococcal Vaccine: 50+ Ye ars (1 of 1 - PCV) 08/15/1991 Zoster Vaccines (1 of 2) 08/15/1991 Annual Medicare Wellness Visit 2006 Dexa Scan (General) 2006 RSV Immunization or 60+ Years (1 - 1-dose 75+ series) 2016 COVID-19 Vaccine (2023-2 5 season) 2024 Meningococcal B Vaccine Aged Out No l onger eligible based on patient's age to complete this topic Meningococcal Vaccine Aged Out No theresa alize eligible based on patient's age to complete this topic RSV Immunizations Under 20 Months Aged Out No longer eligible based on patient's age to complete this topic Insurance MEDICARE
--- OUTSIDE RECORDS SUMMARY | 2024-12-06 07:24 | XMS_ITS | Data Portability ---
Author Organization [place] - [facility], Main Office Address [address] [place] [address] Assessment Encounter Date Assessment Date Assessment LastModified by Organization Details LastModified Time 07/21/2024 07/21/2024 A total of 54 minutes were spent [id number] with this patient. kay Not available 07/21/2024 16:54:29 08/21/2024 08/21/2024 D/w [...] ED. F/u with PCP in 1 week. [email or web address] Not available 08/21/2024 17:40:50 Plan of Treatment Reminders Order Date Submit Date Provider Last Modified By Organization Details Last Modified Time Details Appointments Any 30 2024 03:30P DEBBIE Ayon Not available Not available Not available Lab lipid panel, serum 2024 025 [facility] (Lab), [address] [place], [address], 07/25/2024 04:30:20 glycohemo globin, total, blood 2024 025 [facility] (Lab), [address] [place], [address], 07/25/2024 04:30:[address] referral - Please call patient to schedule an appointme nt. Thank you. 2024 025 [facility] Madhavi Cheek MD, [address], [place], [address], 10/05/2024 17:10:35 cardiolog ist referral - Please call patient to schedule an appointme nt. Thank you. [address] [facility] Referral Fax Line, [address], [place], [address], 10/05/2024 17:55:18 podiatris t referral - Please call patient to schedule an appointme nt. Thank you. 2024 025 [email or web address] Patrice Casillas DPM, [address], [place], [address], 10/23/2024 09:02:00 Procedures None recorded. Surgeries None recorded. Imaging US, duplex, venous, lower extremity , unilatera l - Please call patient to schedule. Note from provider: Rt leg week for 1 week 2024 025 [facility] ([facility]), [address], [place], [address], 09/06/2024 19:08:16 Medication Orders furosemid e 40 mg tablet [address] [facility]596, [address] [place], [place], [id number], 10/05/2024 15:53:19 doxycycli ne hyclate 100 mg capsule [address] [facility]82957, [address] [place], [place], [id number], 11/23/2024 14:50:04 doxycycli ne hyclate 100 mg capsule 2024 025 [facility] #65385, [address] [facility], [place], [place], [id number], 11/23/2024 14:50:04 cefazolin 1 gram solution for injection 2024 025 Not available 10/05/2024 15:53:01 buspirone 5 mg tablet 2024 025 [facility] #03619, [address] [facility], [place], [place], [id number], 07/21/2024 16:50:43 alprazola m 0.25 mg tablet 2024 025 [facility] #82197, [address] [facility], [place], [place], [id number], 07/21/2024 16:50:44 Ozempic 2 mg/dose (8 mg/3 mL) subcutane ous pen injector [address], [address], 07/21/2024 18:33:47 True Metrix Glucose Test Strip [address], [address], 07/21/2024 16:51:24 Patient TargetsNo targets recorded. Patient InstructionsNo instructions recorded. Reason for Referral Helper Driver Referral for Type 2 diabetes mellitus Please call patient to schedule an appointment. Thank you. Referring Physician: Gerri Valencia [facility], Encounter Date: 07/21/2024 Service Assistant Referral for Hi story of placement of stent for coronary artery disease Please call patient to schedule an appointment. Thank you. Referring Physician: Family [facility], Encounter Date: 10/05/2024 Neurologist Referral for Prabhakar lucinations Please call patient to schedule an appointment. Thank you. Referring Physician: Gerri Valencia, Family Medicine, Encounter Date: 10/05/2024 Results Created Date Observation Date Name Description Value Unit Range Abnormal Flag Note LastModifiedBy Organization Detail LastModifiedTime 01/28/20 24 01/27/2024 US, doppl er, venou s No observ ation record ed. [facility] [address], [place], [address], 01/31/2024 08:26:35 09/07/19 25 09/06/2024 US, duple x, venou s, lower extre mity, unila teral No observ ation record ed. [address] [place] [address], [address], 09/07/2024 16:19:52 09/08/19 25 09/06/2024 US, duple x, venou s, lower extre mity, unila teral No observ ation record ed. [address] [place] [address], [address], 09/07/2024 16:19:52 10/04/19 25 10/03/2024 CT, brain , w/o contr ast No observ ation record ed. [address], [address], 10/03/2024 17:13:25 10/04/19 25 10/03/2024 XR, chest , 1 view No observ ation record ed. [address], [address], 10/03/2024 17:13:45 Result Notes None recorded. Problems Name Problem SNOMED Code Status Onset Date Resolution Date Notes Provider Name and Address Organization Details Recorded Time Chronic kidney disease 357400021 Active 2023 DEBBIE Vega [address] [facility], [facility] [address], [place], [address], [facility] 4 16:17:48 Type 2 diabetes mellitus 64319845 Active 2023 DEBBIE Vega [address], [place], [address], [employer] [facility] [employer] [facility] 4 16:18:27 History of artery embolism 1562659504679 9108 Active 2023 DEBBIE Vega [address], [place], [address], [employer] [facility] [employer] [facility] 4 16:18:48 Chronic congestive heart failure 12725410 Active 2023 DEBBIE Vega [address], [place], [address], [employer] [facility] [employer] [facility] 4 16:19:03 Essential hypertensio n 97574251 Active 2023 DEBBIE Vega [address], [place], [address], [employer] [facility] [employer] [facility] 4 16:19:31 Overactive urinary bladder 175256240 Active 2023 DEBBIE Vega [address], [place], [address], [employer] [facility] [employer] [facility] 4 16:19:55 Generalized anxiety disorder 78299590 Active 2023 DEBBIE Vega [address], [place], [address], [employer] [facility] [employer] [facility] 4 16:20:03 Gastroesoph ageal reflux disease without esophagitis 854834403 Active 2023 DEBBIE Vega [address], [place], [address], [employer] [facility] [employer] [facility] 4 16:20:24 History of myocardial infarction 669050362 Active [address], [place], [address], [employer] [facility] 4 16:23:42 Skin lesion 31761802 Active 2023 DEBBIE Vega [address], [place], [address], [employer] [facility] 4 16:42:28 Abnormal gait due to muscle weakness 816249702 Active 2023 DEBBIE Vega [address], [place], [address], [employer] [facility] 4 16:43:06 Wheezing 75841572 Active 2023 DEBBIE Vega [address], [place], [address], [employer] [facility] 4 14:19:54 Dusky discolorati on of skin 138888686 Active 2023 DEBBIE Vega [address], [place], [address], [employer] [facility] 4 11:20:17 Discolorati on of skin 3054147 Active 2023 DEBBIE Vega [address], [place], [address], [employer] [facility] [employer] [facility] 4 11:20:29 Fear of dentist 751030551 Active 2024 DEBBIE Vega [address], [place], [address], [employer] [facility] 5 16:21:48 Panic disorder 754496816 Active 2024 DEBBIE Vega [address], [place], [address], [employer] [facility] [employer] [facility] 5 16:22:43 Seborrheic dermatitis of scalp 470721783 Active 2024 DEBBIE Vega [address], [place], [address], [employer] 5 16:23:44 Cellulitis of right lower limb 5035149573240 9104 Active 2024 Jamie Guajardo MD [address], [place], [address], [employer] 17:25:16 Localized swelling of right lower leg 9702781636491 9104 Active 2024 Jamie Guajardo MD [address], [place], [address], [employer] 17:26:26 Obesity 125950265 Active 2024 Jamie Guajardo MD [address], [place], [address], [employer] 17:41:40 Edema of lower extremity 951051139 Active 2024 DEBBIE Vega [address], [place], [address], [employer] 14:51:27 Hallucinati ons 2549643 Active 2024 DEBBIE Vega [address], [place], [address], [employer] 16:09:09 Hyperglycem ia due to type 2 diabetes mellitus 0088328665804 09 Active 2024 DEBBIE Vega [address], [place], [address], [employer] 16:25:48 Problem Notes None recorded. Medical Equipment None Reported. Allergies No known drug allergies Medications Name Sig Start Date Stop Date Status Note LastModified by Organization Details LastModified Time Prescriptio n - Prior Authorizati on Request active Not Available Not Available N ot Available furosemide 40 mg tablet Take 1 tablet every day by oral route as directed for 90 days. 10/05 completed Not Available Not Available Not Available cefazolin 1 gram solution for injection Take 1 g by injection route for 1 day. 10/05 completed pt sadiq well Not Available Not Available [...] oral route as directed for 10 days. 11/23 completed Not Available Not Available Not Available venlafaxine 75 mg tablet Take 2 tablets [...] 1 TABLET BY MOUTH EVERY 12 HOURS 10/05 completed Not Available Not Available Not Available alprazolam 0.25 mg tablet TAKE 1 TABLET BY MOUTH EVERY DAY NEEDED FOR SEVERE ANXIETY active Not Available Not Available No t Available cephalexin 500 mg capsule TAKE 1 CAPSULE BY MOUTH EVERY 6 HOURS X 5 DAYS 11/23 completed Not Available Not Available Not Available [...] ous route as directed for 28 days. 2024 active Not Available Not Available [...] saturation in Arterial blood by Pulse oximetry Pain severity - 0-10 verbal numeric rating [Score] - Reported Systolic And Diastolic Provider Name and Address Organization Details Last Updated DateTime 5 149.86 cm 40.8 kg/m2 23414.3 6 g 97 [degF] 92 % 92 % 0 180/64 mm[Hg] Nehal Stephenson RN [facility] 5 16:08:39 Date Recorded Body height Body mass index (BMI) Body weight Body temperature Oxygen saturation Oxygen saturation in Arterial blood by Pulse oximetry Heart rate Systolic And Diastolic Provider Name and Address Organization Details Last Updated DateTime 5 149.86 cm 42.3 kg/m2 73265.5 6 g 97.2 [degF] 99 % 99 % 70 /min 150/70 mm[Hg] Celena Maldonado RN [facility] 5 17:18:42 Date Recorded Body height Body temperature Respiratory rate Pain severity - 0-10 verbal numeric rating [Score] - Reported Heart rate Systolic And Diastolic Provider Name and Address Organization Details Last Updated DateTime 5 149.86 cm 97 [degF] 24 /min 0 72 /min 150/110 mm[Hg] Nehal Stephenson RN [facility] 5 14:44:42 Date Recorded Body height Body temperature Heart rate Respiratory rate Oxygen saturation Oxygen saturation in Arterial blood by Pulse oximetry Pain severity - 0-10 verbal numeric rating [Score] - Reported Systolic And Diastolic Provider Name and Address Organization Details Last Updated DateTime 5 149.86 cm 97.4 [degF] 75 /min 20 /min 94 % 94 % 0 154/110 mm[Hg] Nehal Stephenson RN [facility] [employer] [facility] 5 15:57:25 Date Recorded Body height Body mass index (BMI) Body weight Body temperature Heart rate Respiratory rate Oxygen saturation Oxygen saturation in Arterial blood by Pulse oximetry Pain severity - 0-10 verbal numeric rating [Score] - Reported Systolic And Diastolic Provider Name and Address Organization Details Last Updated DateTime 4 149.86 cm 42.4 kg/m2 15891.4 g 97.1 [degF] 83 /min 20 /min 93 % 93 % 4 120/80 mm[Hg] Nehal Stephenson RN [facility] [employer] [facility] 4 11:03:18 Social History Question Answer Notes LastModified by Organizat ion Details LastModified Time Tobacco Smoking Status Never Smoker Nehal Stephenson RN [facility], [facility] 01/11/2024 16:14:28 Do You Have An Advance Directive? Yes Steven Varghese dt- Son Information not available 01/20/2024 Are [...] not available 01/20/2024 Where Do You Live? 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 No Information not available 01/11/2024 Do You [...] anxious, or unable to sleep at night)? [id number] Information not available 02/24/2024 Do you have difficulty concentrating, remembering or making decisions? Yes Information no t available 01/11/2024 Family History Nothing Reported. Medical History Condition Response ATHEROSCLEROSIS Y CHF Y GI PROBLEMS Y KIDNEY DISEASE Y DIABETES, TYPE Y HEART DISEASE/HEART PROBLEMS Y ALLERGIES/HAYFEVER Y BAD TEETH Y OTHER # 1 INSOMNIA Y HEARTBURN / REFLUX Y HYPERTENSION Y HIGH CHOLESTEROL / HYPERLIPIDEMIA Y OBESITY Y ANXIETY DISORDER Y GERD/NAUSEA Y ASTHMA [...] SNOMED-CT Code Diagnosis ICD10 Code Diagnosis Note [id number] Jamie Guajardo MD [address] [address] 01/11/2024 15:50:48 01/11/2024 17:00:40 History of myocardial infarction 298308226 I25.2 Screening for osteoporosis 109235518 Z13.820 Ophthalmic examination and evaluation 78565035 Z01.00 Adult [facility] th examination 144757937 Z00.00 Skin lesion 86534768 L98 .9 Type 2 matilda betes mellitus 00086788 E11.9 Chronic ki dney disease 171067580 N18.9 [id number] Jamei Guajardo MD [address] [address] 01/20/2024 13:47:50 01/20/2024 14:26:49 Type 2 diabetes mellitus 87641120 E11.9 A1C is 7.7, goal to decrease insulin. Added Mellisa 01/10, increase Ozempic to 2 mg 01/19 Wheezing 26560054 R06.2 History of myocardial infarction 746455132 I25.2 [id number] Jamie Guajardo MD [address] [address] 02/24/2024 10:41:46 02/24/2024 11:25:10 Impaired mobility 99219008 Z74.09 Note provided to patient verifying need for medical wheelchair Discoloration of skin 32 [address]5764 R23.8 Discolorat ion of WILLIAM feet, pt states this has been her normal for a while. Advised to discuss with Cardiology . Pt states she has an appointmen t this month. [id number] Jamie Guajardo MD [address] [address] 07/21/2024 15:51:29 07/21/2024 16:54:49 Fear of dentist 125011048 F40.232 Having all teeth removed within the next 30 days, has had many panic attacks about this, 2 of which required an EMS call and a trip to the ER.Advised to take Xanax only for SEVERE anxiety and to use sparingly. Discussed PROSPECTING OBSERVER risk, pt and son express understand Panic disorder 233046872 F41.0 Advised to utilize buspar for mild to moderate anxiety Type 2 matilda betes mellitus 03787718 E11.9 A1C is 7.7, goal to decrease insulin. Added Farxiga 01/10, increase Ozempic to 2 mg 01/19 History of myocardial infarction 430645349 I25.2 Advised to FU with Dr. Gonzalez [id number] Jamie Guajardo MD [address] [address] 08/21/2024 17:05:14 08/21/2024 17:57:01 Cellulitis of right lower limb 6934105634 5799971 L03.115 Localized swelling of right lower leg 4644888122 7417450 R22.41 Abnormal g ait due to muscle weakness 313879976 M62.81 Generalize d anxiety disorder 64926831 F41.1 Obesity 502934780 E66.9 Impaired mobility 476511 05 Z74.09 History of myocardial infarction 683508616 I25.2 [id number] Jamie Guajardo MD [facility] [address] [place] [address] 08/29/2024 14:33:19 08/29/2024 14:58:21 Cellulitis of right lower limb 9535134923 5101268 L03.115 DId not take doxycyclin e last ordered, still has pain, erythema, swelling Edema of l ower extremity 750667022 R60.0 3+ pitting edema Seborrheic dermatitis of scalp 206800167 L21.0 Failed ketoconazo le and triamcinol oneZoryve given in office [id number] DEBBIE Vega [facility] [address] [place] [address] 10/05/2024 15:46:33 10/05/2024 16:39:48 History of placement of stent for coronary artery disease 113517363 Z95.5 Has not seen a cardiologi st in approx 1 year Hallucinations 8082282 R 44.3 Visual and auditory x 1 day while BS was 596, has subsided now. Cellulitis of right lower limb 2828492399 0175409 L03.115 Currently taking cephalexin QID Hyperglyce esperanza due to type 2 diabetes mellitus 0963124056 17703 E11.65 Z79.4 Advised to monitor sugars three times daily, continue medication s as prescribed . Return for appt on 10/19 for A1C Health Concerns Section Related Observation LastModified by Organization Detai ls LastModified Time None Recorded Concern Status LastModified by Organization Details LastModified Time None Recorded Advance Directives Directive Y: Steven Perry- son Payers Insurance Date Sequence Insurance Name Policy Number Policy Figueroa Covered Member ID Figueroa Member ID Guarantor Name 12/06/2024 1 [place] Lizabeth Perry [id number] Lizabeth Perry 12/05/2024 2 [place] [id number] Lizabeth Vicky [id number] Lizabeth Perry Notes Date Note Type Note Provider Name and Address Organization Details Recorded Time 02/24/2024 text/html Lizabeth duarte is an 83 year old female patient here today for a mobility [id number] She has limited mobility due generalized weakness [...] has been taking this for a long time. Patient states the peeling is stopped. Feet appear normal on evaluation, WILLIAM toes are slightly discolored. Advised to FU with leasing assistant for possible PVD. Gerri Valencia, PRODUCTION QUALITY ANALYST [address] [facility], [place], [address], [facility] 02/24/2024 11:21:32 07/21/2024 text/html Lizabeth duarte is an 83 year old female patient here today to for 3 month FU History of NM on 12/21/2023. Had 2 stents placed, did see Dr. Holliday but has not had a FU. LDL 73. Her past medical history is significant for hyperlipidemia. Last labs unknown, had recent NM. History of embolism of iliac artery. Anticoagulated [...] 2022, clear per pt DEBBIE Vega [address] [facility], [facility] [address], [place], [address], [employer] [facility] 07/21/2024 16:54:33 08/21/2024 text/html ACV:Here with he [...] is on Eliquis and Plavix from her leasing assistant. Denies any other concern. No chest pain/sob/fever/chill s/n/v/d. Jamie Guajardo MD [address] [facility], [facility] [address], [place], [address], [employer] 08/21/2024 17:43:11 08/29/2024 text/html Lizabeth duarte is [...] increase to 40 mg DEBBIE Vega [address] [facility], [facility] [address], [place], [address], [employer] 08/29/2024 15:18:05 10/05/2024 text/html Lizabeth duarte is an 84 year old female patient here today for multiple concerns. She has cellulitis on her right lower leg. She has erythema and edema to the right lower leg. She was given cephalexin QID starting yesterday at the ER. She admits to some hallucinations lately. She states she has been talking to her sister and having good conversations but other people tell her nobody is there. She had a blood sugar of greater than 500 while hallucinating. Her last A1C was 6.7 (07/21/24) Her assisted living facility is managing her medications and states she is getting insulin as directed Gerri Valencia, PRODUCTION QUALITY ANALYST [address] [facility], [facility] [address], [place], [address], [place] [facility] 10/05/2024 16:26:39 OBGyn Episode No OBEpisode recorded.
[2024-12-06] MEDS: TETANUS,DIPHTHERIA,AC PERTUSSIS ADULT (0.5 ML) BOOSTRIX IM (07:51)
--- NOTE | 2024-12-06 08:11 | ECG_ITS ---
Test Date: 2024-12-06 08:47:39 Measurements Intervals [place] Rate: 70 P: 0 MT: 0 QRS: -75 QRSD: 206 T: 91 QT: 475 QTc: 513 Interpretive Statements ELECTRONIC VENTRICULAR PACEMAKER ATYPICAL ECG Compared to ECG 03/20/2024 22:50:04 No significant changes Electronically Signed On 12-06-2024 10:09:20 CDT by Nikhil Forte M.D.
[2024-12-06] MEDS: SODIUM CHLORIDE 0.9% IV 1,000 ML 999 ML IV CONT (08:32)
[2024-12-06 08:42] LABS: Hematocrit 49.2 % (37.0-47.0); Hemoglobin 15.9 g/dL (12.0-15.0); Immature Granulocyte Percent A 0.4 % (0-0.5); Lymphocytes Absolute Auto 0.90 K/mm3 (0.9-3.2); Mean Corpuscular HGB Conc 32.3 g/dl (32-36); Mean Corpuscular Hemoglobin 30.0 pg (26-34); Mean Corpuscular Volume 92.8 fl (80-100); Nucleated Red Blood Cells Absolute Auto 0.000 K/mm3 (0.0-0.012); Nucleated Red Blood Cells Perc 0.0 % (0.0-0.2); Platelet Count Result 166 k/mm3 (150-375); Red Blood Count 5.30 M/mm3 (4.2-5.4); White Blood Count 6.8 K/mm3 (4.5-10.0)
[2024-12-06 08:55] LABS: INR 1.3; Partial Thromboplastin Time 27.2 Seconds (22.3-36.8); Prothrombin Time 16.4 Seconds (11.1-14.7)
[2024-12-06 09:19] LABS: Alanine Aminotransferase 21 U/L (6-35); Albumin Level 4.3 g/dL (3.5-5.1); Alkaline Phosphatase 91 U/L (38-126); Anion Gap 11 mmol/L (4-12); Aspartate Amino Transferase 38 U/L (14-36); Bilirubin,Total 1.0 mg/dL (0.2-1.3); Blood Urea Nitrogen 27 mg/dL (7-17); CRP < 0.5 mg/dL (<1.0); Calcium 10.4 mg/dL (8.4-10.2); Carbon Dioxide 28 mmol/L (22-30); Chloride 99 mmol/L (98-107); Estimated Glomerular Filt Rate 37; Glucose 137 mg/dL (65-110); Potassium 4.0 mmol/L (3.4-5.0); Sodium 138 mmol/L (137-145); Total Protein 7.9 g/dL (6.3-8.2)
[2024-12-06 09:23] LABS: Troponin I 0.024 ng/mL (0.000-0.034)
[2024-12-06 10:29] LABS: Add Urine Microscopic? NO; Appearance Urine Clear (Clear); Glucose Urine UA 3+ mg/dL (Negative); Leukocyte Esterase Ur Negative LEU/UL (Negative); Nitrate Urine Negative (Negative); Specific Grav Ur 1.015 (1.001-1.035)
[2024-12-06] MEDS: traMADol HCL (*CRX) 50 MG TABLET PO (11:35)
--- NOTE | 2024-12-06 12:52 | PC.NURSE ---
Called Edward for transportation upon d/c. No answer. Message left.
== END 2024-12-06 15:49 ==
PROVIDERS: Emergency Provider Emergency Medicine
DX: S01.81XA Laceration without foreign body of other part of head, initial encounter (principal); Z23 Encounter for immunization; E11.9 Type 2 diabetes mellitus without complications; M47.812 Spondylosis without myelopathy or radiculopathy, cervical region; Z79.4 Long term (current) use of insulin; Z79.84 Long term (current) use of oral hypoglycemic drugs; Z79.02 Long term (current) use of antithrombotics/antiplatelets; Z79.01 Long term (current) use of anticoagulants; Z79.899 Other long term (current) drug therapy; W18.09XA Striking against other object with subsequent fall, initial encounter
CPT/HCPCS: 12011; 36415; 70450; 71046; 72125; 80053; 81003; 83605; 84484; 85025; 85610; 85730; 86140; 87040; 90471; 90715; 93005; 96360; 99284; A9270; J2003; J7030

== ENCOUNTER 2024-12-07 12:42 | Inpatient (IN) | payer MEDICARE, BC, SELFPAY ==
--- NOTE | ~2024-12-07 | CT_ITS ---
EXAMINATION: CT knee RT wo con DATE: 12/07/2024 17:00 INDICATION: Right knee pain post fall TECHNIQUE: High resolution computed tomography (CT) of the right knee was performed without intraveno us contrast. Additional sagittal and coronal reconstructions were performed. Automated exposure contr ol and iterative reconstruction technique were employed. The dose-length product was 531.01 mGy-cm. COMPARISON: Radiograph dated 12/07/2024 FINDINGS: Alignment is normal. No acute fracture. Tricompartmental osteoarthritis, severe in the medial compart ment with prominent subarticular cystlike changes along the medial tibial plateau and to lesser degre e the anterior weightbearing medial femoral condyle. Moderate to large marginal osteophytes in all 3 compartments which at the intercondylar notch account for the artifactual appearance of fracture and the prior radiographs. There is a moderate-sized relatively high attenuation right knee joint effusio n consistent with a likely post traumatic hemarthrosis. No evident layering fat level to suggest occu lt intra-articular fracture. Prominent subcutaneous edema along the dependent aspect of the distal th igh and proximal calf. There is heterogeneous fatty atrophy of the musculature in the distal thigh an d proximal calf most prominent at the lateral head of the gastrocnemius muscle medial side of the darcy eus muscle which could be due to denervation change or chronic muscle strain. IMPRESSION: 1. Moderate-sized right knee joint effusion with increased attenuation which given history of trauma would be most consistent with a hemarthrosis likely related to soft tissue injury with no evident fra cture or other acute osseous abnormality. Differential would include septic arthritis in the appropri ate clinical setting and could consider arthrocentesis if there is clinical concern. 2. 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 Reviewed, dictated and finalized at location A. IMPRESSION: 1. Moderate-sized right knee joint effusion with increased attenuation which gi tonia history of trauma would be most consistent with a hemarthrosis likely relat ed to soft tissue injury with no evident fracture or other acute osseous abnorm ality. Differential would include septic arthritis in the appropriate clinical setting and could consider arthrocentesis if there is clinical concern. 2. 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
--- NOTE | ~2024-12-07 | US_ITS ---
EXAMINATION: US venous doppler [facility] DATE: 12/08/2024 15:23 INDICATION: Edema, right greater than left TECHNIQUE: Grayscale ultrasound images without and with compression and Doppler ultrasound images of the bilateral lower extremity veins were obtained. COMPARISON: 09/06/2024 FINDINGS: The visualized portions of right common femoral vein, profunda (deep) femoral vein, femoral vein, pop liteal vein, peroneal veins, posterior tibial veins, and greater saphenous vein outflow are patent. The visualized portions of left common femoral vein, profunda femoral vein, femoral vein, popliteal v ein, peroneal veins, posterior tibial veins, and greater saphenous vein outflow are patent. IMPRESSION: 1. No deep venous thrombosis. Reviewed, dictated and finalized at location A.
--- NOTE | ~2024-12-07 | XR_ITS ---
[id number] 12/11/2024 16:21 Indication: Right knee pain Procedure: 2 views right knee Comparison: No prior studies for comparison. Findings: Severe tricompartment osteoarthritis of the right knee. No acute fracture or traumatic césar lignment. There is moderate joint effusion. Impression: 1: Severe tricompartment osteoarthritis. 2: Moderate joint effusion. Reviewed, dictated and finalized at location B. Impression: 1: Severe tricompartment osteoarthritis. 2: Moderate joint effusion.
--- NOTE | ~2024-12-07 | XR_ITS ---
XR chest 1V portable 12/08/2024 06:00 Indication: CHF Procedure: AP portable chest Comparison: Comparison to multiple prior studies sequentially, with oldest reviewed study dated 08/2023. Findings: Status post median sternotomy for CABG. Cardiomegaly. Improving interstitial edema. No pneu mothorax or pleural effusion. Impression: 1: Improving interstitial edema. 2: Stable cardiomegaly. Reviewed, dictated and finalized at location A. Impression: 1: Improving interstitial edema. 2: Stable cardiomegaly.
--- NOTE | ~2024-12-07 | XR_ITS ---
EXAMINATION: XR shoulder LT min 2V DATE: 12/07/2024 21:16 INDICATION: Left shoulder injury post fall TECHNIQUE: AP internally and externally rotated, AP oblique externally rotated and transscapular Y vi ews of the left shoulder were obtained. COMPARISON: Chest CT dated 03/20/2024 and chest radiograph dated 12/06/2024 FINDINGS: Normal alignment. No fracture.Severe left acromioclavicular osteoarthritis. Moderate sized subacromi al spurs. There is suggestion of osteoarthritis at the left glenohumeral joint, the joint space is in sufficiently profiled to assess for the degree of joint space narrowing. Cardiomegaly. Median sternot paco wires, ostial markers and mediastinal surgical clips consistent with prior coronary artery bypass grafting. There is also been prior aortic valve repair. Intraventricular bus driver/monitor increased i nitial pattern in the left lower and right mid and lower lung zones most likely mild pulmonary edema although differential includes pneumonia.. IMPRESSION: 1. Degenerative change at the left shoulder including severe acromioclavicular osteoarthritis. No acu te osseous abnormality. 2. Cardiomegaly with likely unchanged mild pulmonary edema in the left lower and right mid and lower lung zones with differential including pneumonia. Reviewed, dictated and finalized at location A. IMPRESSION: 1. Degenerative change at the left shoulder including severe acromioclavicular osteoarthritis. No acute osseous abnormality. 2. Cardiomegaly with likely unchanged mild pulmonary edema in the left lower an d right mid and lower lung zones with differential including pneumonia.
--- NOTE | ~2024-12-07 | XR_ITS ---
EXAM: XR humerus LT DATE: 12/10/2024 14:25 HISTORY: pain following fall . COMPARISON: None available. FINDINGS: Normal mineralization. No fracture or dislocation in the humerus. No lytic or blastic lesi on in the humerus. Degenerative changes at the AC joint and glenohumeral joint. No erosion or periost eal change. Soft tissues within normal limits. Suggestion of a lytic lesion involving the glenoid IMPRESSION: No acute osseous finding in the humerus. Possible glenoid lytic lesion. Recommend CT of l eft shoulder for further evaluation. Reviewed, dictated and finalized at location K. IMPRESSION: No acute osseous finding in the humerus. Possible glenoid lytic les ion. Recommend CT of left shoulder for further evaluation.
--- NOTE | ~2024-12-07 | CT_ITS ---
CLINICAL INDICATION: Abnormal x-ray. COMPARISON: Reference is made to a plain radiograph of the humerus dated . TECHNIQUE: Computed tomography (CT) of the left shoulder was performed without intravenous contrast. The dose-length product was 438.78 mGy-cm. FINDINGS/OBSERVATIONS: Periarticular osteopenia is identified, commonly seen with osteoarthritis. Well-corticated lucency along the anterior lateral margin of the glenoid fossa, not an acute finding. Extensive osteophyte formation is present. No discrete soft tissue abnormality. Follow-up with nonemergent recommend routine 1 back pain and biliary MRI may provide additional infor mation, if clinically able Significant degenerative disease is identified within the acromioclavicular joint space with osteophy te formation and upsloping of the distal clavicle. IMPRESSION: Significant degenerative osteoarthritic disease, without lytic or blastic lesions identified. Reviewed, dictated and finalized at location A. IMPRESSION: Significant degenerative osteoarthritic disease, without lytic or blastic lesio ns identified.
--- NOTE | ~2024-12-07 | XR_ITS ---
HISTORY: fall, knee pain COMPARISON: None TECHNIQUE: 3 views of the right knee were performed FINDINGS: A vertical lucency is identified within the distal femur, or possibly within the patella for which de dicated views of the patella are recommended as this likely represents acute fracture. Significant medial and lateral tibiofemoral joint space narrowing is identified with sclerosis and os teophytic bridging. Moderate suprapatellar joint effusion is identified. The infrapatellar joint space is clear. IMPRESSION: Vertical lucency within the distal femur versus the inferior patella for which dedicated plain film evaluation of the patella is recommended versus cross-sectional imaging. Significant dege nerative disease is also identified, as detailed above. Moderate suprapatellar joint effusion. Reviewed, dictated and finalized at location A. IMPRESSION: Vertical lucency within the distal femur versus the inferior shields la for which dedicated plain film evaluation of the patella is recommended vers us cross-sectional imaging. Significant degenerative disease is also identified , as detailed above. Moderate suprapatellar joint effusion.
[2024-12-07 12:44] VITALS: BP 155/46; PULSE 73; RESP 18; TEMP 36.9; O2SAT 99
--- OUTSIDE RECORDS SUMMARY | 2024-12-07 12:44 | XMS_ITS | Clinical Summary ---
Author Organization [facility] Address [facility] [place] [address] Care Team Providers Care Equipment Technician Name Role Phone Unavailable Primary Care Provider [...] Description 01/12/2025 9:40 AM CDT Office Visit [facility] - [facility] [address] [facility], [address] [place] [phone] Christine Maldonado NP [address] [facility] [address] [place] [address] Health Maintenance Due Date Last Done Comments [...]
--- OUTSIDE RECORDS SUMMARY | 2024-12-07 12:45 | XMS_ITS | Data Portability ---
Author Organization [place] - [facility] [email or web address], Main Office Address [address] [place] [address] Assessment Encounter Date Assessment Date Assessment LastModified by Organization Details LastModified Time 07/21/2024 07/21/2024 A total of 54 minutes were spent [id number] with this patient. [email or web address] Not available 07/21/2024 16:54:29 08/21/2024 08/21/2024 D/w [...] ED. F/u with PCP in 1 week. [email or web address] Not available 08/21/2024 17:40:50 Plan of Treatment Reminders Order Date Submit Date Provider Last Modified By Organization Details Last Modified Time Details Appointments Any 30 2024 03:30P DEBBIE Ayon Not available Not available Not available Hospital Follow Up 2024 09:15A DEBBIE Ayon Not available Not available Not available Lab lipid panel, serum 2024 025 [facility] (Lab), [address] [place], [address], 07/25/2024 04:30:20 glycohemo globin, total, blood 2024 025 [facility] (Lab), [address] [place], [address], 07/25/2024 04:30:[address] referral - Please call patient to schedule an appointme nt. Thank you. 2024 025 [facility] Madhavi Cheek MD, [address], [place], [address], 10/05/2024 17:10:35 cardiolog ist referral - Please call patient to schedule an appointme nt. Thank you. 2024 025 [facility] Referral Fax Line, [address], [place], [address], 10/05/2024 17:55:18 podiatris t referral - Please call patient to schedule an appointme nt. Thank you. 2024 025 [email or web address] Patrice Casillas DPM, [address], [place], [address], 10/23/2024 09:02:00 Procedures None recorded. Surgeries None recorded. Imaging US, duplex, venous, lower extremity , unilatera l - Please call patient to schedule. Note from provider: Rt leg week for 1 week 2024 025 [facility] ([facility]), [address], [place], [address], 09/06/2024 19:08:16 Medication Orders furosemid e 40 mg tablet 2024 025 [facility], [address], [place], [id number], 10/05/2024 15:53:19 doxycycli ne hyclate 100 mg capsule 2024 025 [facility] #[id number], [address], [place], [id number], 11/23/2024 14:50:04 doxycycli ne hyclate 100 mg capsule 2024 025 [facility] #33390, [address], [place], [place], [id number], 11/23/2024 14:50:04 cefazolin 1 gram solution for injection 2024 025 Not available 10/05/2024 15:53:01 buspirone 5 mg tablet 2024 025 [facility] #35363, [address], [place], [place], [id number], 07/21/2024 16:50:43 alprazola m 0.25 mg tablet 2024 025 [facility] #98928, [address], [place], [place], [id number], 07/21/2024 16:50:44 Ozempic 2 mg/dose (8 mg/3 mL) subcutane ous pen injector [address], [address], 07/21/2024 18:33:47 True Metrix Glucose Test Strip [address], [address], 07/21/2024 16:51:24 Patient TargetsNo targets recorded. Patient InstructionsNo instructions recorded. Reason for Referral Fundraising Coordinator Referral for Type 2 diabetes mellitus Please call patient to schedule an appointment. Thank you. Referring Physician: [facility], Encounter Date: 07/21/2024 Internet Marketing Intern Referral for Hi story of placement of stent for coronary artery disease Please call patient to schedule an appointment. Thank you. Referring Physician: Family Jaren Vega, Encounter Date: 10/05/2024 Neurologist Referral for Prabhakar lucalesha Please call patient to schedule an appointment. Thank you. Referring Physician: Gerri Valencia [facility], Encounter Date: 10/05/2024 Results Created Date Observation Date Name Description Value Unit Range Abnormal Flag Note LastModifiedBy Organization Detail LastModifiedTime 01/28/2001/27/2024 US, doppl er, venou s No observ ation record ed. [facility] [address], [place], [address], 01/31/2024 08:26:35 09/07/19 25 09/06/2024 US, duple x, venou s, lower extre mity, unila teral No observ ation record ed. [address], [address], 09/07/2024 16:19:52 09/08/19 25 09/06/2024 US, duple x, venou s, lower extre mity, unila teral No observ ation record ed. [address], [address], 09/07/2024 16:19:52 10/04/19 25 10/03/2024 CT, brain , w/o contr ast No observ ation record ed. [address], [address], 10/03/2024 17:13:25 10/04/19 25 10/03/2024 XR, chest , 1 view No observ ation record ed. [address], [address], 10/03/2024 17:13:45 12/07/19 25 12/06/2024 CT, brain , w/ contr ast No observ ation record ed. [address], [address], 12/06/2024 13:28:37 12/07/19 25 12/06/2024 XR, chest No observ ation record ed. [facility] [address], [place], [address], 12/06/2024 15:27:20 Result Notes None recorded. Problems Name Problem SNOMED Code Status Onset Date Resolution Date Notes Provider Name and Address Organization Details Recorded Time Chronic kidney disease 541223350 Active 2023 DEBBIE Vega [address], [place], [address], [employer] 4 16:17:48 Type 2 diabetes mellitus 46950938 Active 2023 DEBBIE Vega [address], [place], [address], [employer] 4 16:18:27 History of artery embolism 9643259860989 9108 Active 2023 DEBBIE Vega [address], [place], [address], [employer] 16:18:48 Chronic congestive heart failure 12469054 Active 2023 DEBBIE Vega [address], [place], [address], [employer] 4 16:19:03 Essential hypertensio n 83003684 Active 2023 DEBBIE Vega [address], [place], [address], [employer] 4 16:19:31 Overactive urinary bladder 009797359 Active 2023 DEBBIE Vega [address], [place], [address], [employer] 4 16:19:55 Generalized anxiety disorder 58377750 Active 2023 DEBBIE Vega [address], [place], [address], [employer] 4 16:20:03 Gastroesoph ageal reflux disease without esophagitis 508029591 Active 2023 DEBBIE Vega [address], [place], [address], [employer] 4 16:20:24 History of myocardial infarction 631369088 Active 2023 DEBBIE Vega [address], [place], [address], [employer] 4 16:23:42 Skin lesion 13803514 Active 2023 DEBBIE Vega [address], [place], [address], [employer] 4 16:42:28 Abnormal gait due to muscle weakness 913631670 Active 2023 DEBBIE Vega [address], [place], [address], [employer] 4 16:43:06 Wheezing 31618029 Active 2023 DEBBIE Vega [address], [place], [address], [employer] 4 14:19:54 Dusky discolorati on of skin 157293987 Active 2023 DEBBIE Vega [address], [place], [address], [employer] 4 11:20:17 Discolorati on of skin 9999711 Active 2023 DEBBIE Vega [address], [place], [address], [employer] 4 11:20:29 Fear of dentist 601284267 Active 2024 DEBBIE Vega [address], [place], [address], [employer] 5 16:21:48 Panic disorder 841248434 Active 2024 DEBBIE Vega [address], [place], [address], [employer] 5 16:22:43 Seborrheic dermatitis of scalp 300495716 Active 2024 DEBBIE Vega [address], [place], [address], [employer] 5 16:23:44 Cellulitis of right lower limb 9655739517408 9104 Active 2024 Jamie Guajardo MD [address], [place], [address], [employer] 5 17:25:16 Localized swelling of right lower leg 5953767191615 9104 Active 2024 Jamie Guajardo MD [address], [place], [address], [employer] 5 17:26:26 Obesity 455549598 Active 2024 Jamie Guajardo MD [address], [place], [address], [email or web address] 5 17:41:40 Edema of lower extremity 988703982 Active 2024 DEBBIE Vega [address], [place], [address], [employer] 5 14:51:27 Hallucinati ons 1509316 Active 2024 DEBBIE Vega [address], [place], [address], [employer] 16:09:09 Hyperglycem ia due to type 2 diabetes mellitus 7560902368457 09 Active 2024 Gerri Valencia, [employer] [address], [place], [address], [facility] 16:25:48 Problem Notes None recorded. Medical Equipment [...] Updated DateTime 5 149.86 cm 40.8 kg/m2 90481.3 6 g 97 [degF] 92 % 92 % 0 180/64 mm[Hg] Nehal Stephenson RN [place] [facility] [place] [facility] 5 16:08:39 Date Recorded Body height Body mass index (BMI) Body weight Body temperature Oxygen saturation Oxygen saturation in Arterial blood by Pulse oximetry Heart rate Systolic And Diastolic Provider Name and Address Organization Details Last Updated DateTime 5 149.86 cm 42.3 kg/m2 70424.5 6 g 97.2 [degF] 99 % 99 % 70 /min 150/70 mm[Hg] Celena Maldonado RN [facility] [place] [facility] 5 17:18:42 Date Recorded Body height Body temperature Respiratory rate Pain severity - 0-10 verbal numeric rating [Score] - Reported Heart rate Systolic And Diastolic Provider Name and Address Organization Details Last Updated DateTime 5 149.86 cm 97 [degF] 24 /min 0 72 /min 150/110 mm[Hg] Nehal Stephenson RN [facility] [employer] [facility] 5 14:44:42 Date Recorded Body height Body temperature Heart rate Respiratory rate Oxygen saturation Oxygen saturation in Arterial blood by Pulse oximetry Pain severity - 0-10 verbal numeric rating [Score] - Reported Systolic And Diastolic Provider Name and Address Organization Details Last Updated DateTime 5 149.86 cm 97.4 [degF] 75 /min 20 /min 94 % 94 % 0 154/110 mm[Hg] Nehal Stephenson RN [facility] [place] [facility] 5 15:57:25 Date Recorded Body height Body mass index (BMI) Body weight Body temperature Heart rate Respiratory rate Oxygen saturation Oxygen saturation in Arterial blood by Pulse oximetry Pain severity - 0-10 verbal numeric rating [Score] - Reported Systolic And Diastolic Provider Name and Address Organization Details Last Updated DateTime 4 149.86 cm 42.4 kg/m2 26399.4 g 97.1 [degF] 83 /min 20 /min 93 % 93 % 4 120/80 mm[Hg] Nehal Stephenson RN [facility] [place] [facility] 4 11:03:18 Social History Question Answer Notes LastModified by Organizat ion Details LastModified Time Tobacco Smoking Status Never Smoker Nehal Stephenson RN [facility] [place] [facility] 01/11/2024 16:14:28 Do You Have An Advance [...] Do You Have A Medical Power Of Advanced Manager? Yes Information not available 01/20/2024 Do You [...] anxious, or unable to sleep at night)? [id number] Information not available 02/24/2024 Do you have difficulty concentrating, remembering or making decisions? Yes Information no t available 01/11/2024 Family History Nothing Reported. Medical History Condition Response ATHEROSCLEROSIS Y GI PROBLEMS Y CHF Y KIDNEY DISEASE Y DIABETES, TYPE Y HEART DISEASE/HEART PROBLEMS Y BAD TEETH Y ALLERGIES/HAYFEVER Y OTHER # 1 INSOMNIA Y HEARTBURN / REFLUX Y HYPERTENSION Y HIGH CHOLESTEROL / HYPERLIPIDEMIA Y ANXIETY DISORDER Y OBESITY Y GERD/NAUSEA Y ASTHMA Y Do you [...] SNOMED-CT Code Diagnosis ICD10 Code Diagnosis Note [id number] Jamie Guajardo MD [facility] [address] [address] 01/11/2024 15:50:48 01/11/2024 17:00:40 History of myocardial infarction 172700841 I25.2 Screening for osteoporosis 160677711 Z13.820 Ophthalmic examination and evaluation 98395265 Z01.00 Adult heal th examination 992740005 Z00.00 Skin lesion 94437649 L98 .9 Type 2 matilda betes mellitus 48989835 E11.9 Chronic ki dney disease 466226609 N18.9 [id number] Jamie Guajardo MD [address] [address] 01/20/2024 13:47:50 01/20/2024 14:26:49 Type 2 diabetes mellitus 58528856 E11.9 A1C is 7.7, goal to decrease insulin. Added Farxiga 01/10, increase Ozempic to 2 mg 01/19 Wheezing 62812191 R06.2 History of myocardial infarction 273228058 I25.2 [id number] Jamie Guajardo MD [address] [address] 02/24/2024 10:41:46 02/24/2024 11:25:10 Impaired mobility 95829786 Z74.09 Note provided to patient verifying need for medical wheelchair Discoloration of skin 32 73593 R23.8 Discolorat ion of WILLIAM feet, pt states this has been her normal for a while. Advised to discuss with Cardiology . Pt states she has an appointmen t this month. [id number] Jamie Guajardo MD [address] [address] 07/21/2024 15:51:29 07/21/2024 16:54:49 Fear of dentist 659321477 F40.232 Having all teeth removed within the next 30 days, has had many panic attacks about this, 2 of which required an EMS call and a trip to the ER.Advised to take Xanax only for SEVERE anxiety and to use sparingly. Discussed CONCRETE BATCHER risk, pt and son express understand Panic disorder 949304943 F41.0 Advised to utilize buspar for mild to moderate anxiety Type 2 matilda betes mellitus 06802392 E11.9 A1C is 7.7, goal to decrease insulin. Added Farxiga 01/10, increase Ozempic to 2 mg 01/19 History of myocardial infarction 444840549 I25.2 Advised to FU with Dr. Gonzalez [id number] Jamie Guajardo MD [place] [address] 08/21/2024 17:05:14 08/21/2024 17:57:01 Cellulitis of right lower limb 1698068674 5881318 L03.115 Localized swelling of right lower leg 9333913530 0524663 R22.41 Abnormal g ait due to muscle weakness 365766585 M62.81 Generalize d anxiety disorder 30945143 F41.1 Obesity 271343293 E66.9 Impaired mobility 224616 05 Z74.09 History of myocardial infarction 215159072 I25.2 [id number] Jamie Guajardo MD [place] [address] 08/29/2024 14:33:19 08/29/2024 14:58:21 Cellulitis of right lower limb 7674379016 8437034 L03.115 DId not take doxycyclin e last ordered, still has pain, erythema, swelling Edema of l ower extremity 008001977 R60.0 3+ pitting edema Seborrheic dermatitis of scalp 969425094 L21.0 Failed ketoconazo le and triamcinol oneZoryve given in office [id number] DEBBIE Vega [place] [address] 10/05/2024 15:46:33 10/05/2024 16:39:48 History of placement of stent for coronary artery disease 662733794 Z95.5 Has not seen a cardiologi st in approx 1 year Hallucinations 8709628 R 44.3 Visual and auditory x 1 day while BS was 596, has subsided now. Cellulitis of right lower limb 1023761604 9224440 L03.115 Currently taking cephalexin QID Hyperglyce esperanza due to type 2 diabetes mellitus 7943171318 24961 E11.65 Z79.4 Advised to monitor sugars three times daily, continue medication s as prescribed . Return for appt on 10/19 for A1C Health Concerns Section Related Observation LastModified by Organization Verito valenzuela LastModified Time None Recorded Concern Status LastModified by Organization Details LastModified Time None Recorded Advance Directives Directive Y: Steven Perry- son Payers Insurance Date Sequence Insurance Name Policy Number Policy Figueroa Covered Member ID Figueroa Member ID Guarantor Name 12/06/2024 1 [place] Lizabeth Perry [id number] Lizabeth Perry 12/05/2024 2 [place] (PPO) [id number] Lizabeth Perry [id number] Lizabeth Perry Notes Date Note Type Note Provider Name and Address Organization Details Recorded Time 02/24/2024 text/html Lizabeth duarte is an 83 year old female patient here today for a mobility [id number]-[id number] She has limited mobility due generalized weakness [...] are slightly discolored. Advised to FU with car wash manager for possible PVD. Gerri Valencia, [facility] [address], [place], [address], [facility] [employer] [facility] 02/24/2024 11:21:32 07/21/2024 text/html Lizabeth duaret is an 83 year old female patient here today to for 3 month FU History of WA on 12/21/2023. Had 2 stents placed, did see Dr. Holliday but has not had a FU. LDL 73. Her past medical history is significant for hyperlipidemia. Last labs unknown, had recent [place]. History of embolism of iliac artery. Anticoagulated [...] 2022, clear per pt DEBBIE Vega [address] [facility] [address], [place], [address], [employer] 07/21/2024 16:54:33 08/21/2024 text/html ACV:Here with he [...] is on Eliquis and Plavix from her car wash manager. Denies any other concern. No chest pain/sob/fever/chill s/n/v/d. Jamie Guajardo MD [address], [place], [address], [employer] 08/21/2024 17:43:11 08/29/2024 text/html Lizabeth Arenasevelyne gerald is an 84 year old female patient [...] increase to 40 mg DEBBIE Vega [address], [place], [address], [facility] [email or web address] 08/29/2024 15:18:05 10/05/2024 text/html Lizabeth duarte is [...] states she is getting insulin as directed DEBBIE Vega [address], [place], [address], [employer] 10/05/2024 16:26:39 OBGyn Episode No OBEpisode recorded.
--- OUTSIDE RECORDS SUMMARY | 2024-12-07 12:45 | XMS_ITS | Data Portability ---
Author Organization [place] [employer], [employer], [facility] Address [address] [place] [address] Care Team Providers Care Preservative Filler Machine Operator Name Role Phone ELMER FLORES Primary Care Provider ELMER FLORES Referring Provider Assessment No assessment recorded. Plan of Treatment Reminders Order Date Submit Date Provider Last Modified By Organization Details Last Modified Time Details Appointments None record ed. Lab PT/INR 017 09/29/19 17 [email or web address] In-Office Order, Internal Use Only DO Not Attach Compendium DO Not Attach Compendium, Do Not Delete/merge, [id number] 11:16:29 PT/INR 017 09/25/19 17 [email or web address] n1 In-Office Order, Internal Use Only DO Not Attach Compendium DO Not Attach Compendium, Do Not Delete/merge, [id number] 10:04:49 PT/INR 017 09/22/19 17 [email or web address] n1 In-Office Order, Internal Use Only DO Not Attach Compendium DO Not Attach Compendium, Do Not Delete/merge, [id number] 12:15:57 PT/INR 017 09/18/19 17 [email or web address] n1 In-Office Order, Internal Use Only DO Not Attach Compendium DO Not Attach Compendium, Do Not Delete/merge, [id number] 14:59:28 Referral None record ed. Procedures [...] DO Not Attach Compendium, Do Not Delete/merge, [id number] 09/24/2016 09:05:07 09/25/19 17 09/24/2016 PT/IN R INR 1.3 ratio 0.8-1. 2 Not Available In-Office Order Internal Use Only DO Not Attach Compendium DO Not Attach Compendium, Do Not Delete/merge, [id number] 09/24/2016 09:05:07 09/22/19 17 09/21/2016 PT/IN R protime 16.1 secs 10.8-1 2.8 Not Available In-Office Order Internal Use Only DO Not Attach Compendium DO Not Attach Compendium, Do Not Delete/merge, 09/21/2016 09:47:13 09/22/19 17 09/21/2016 PT/IN R INR 1.3 ratio 0.8-1. 2 Not Available In-Office Order Internal Use Only DO Not Attach Compendium DO Not Attach Compendium, Do Not Delete/merge, [id number] 09/21/2016 09:47:13 09/18/19 17 09/17/2016 PT/IN R protime 49.8 secs 10.8-1 2.8 Not Available In-Office Order Internal Use Only DO Not Attach Compendium DO Not Attach Compendium, Do Not Delete/merge, [id number] 09/17/2016 14:55:50 09/18/19 17 09/17/2016 PT/IN R INR 4.2 ratio 0.8-1. 2 Not Available In-Office Order Internal Use Only DO Not Attach Compendium DO Not Attach Compendium, Do Not Delete/merge, [id number] 09/17/2016 14:55:50 Result Notes None recorded. Problems Name Problem SNOMED Code Status Onset Date Resolution Date Notes Provider Name and Address Organization Details Recorded Time Long-term current use of anticoagulant 482877789 Active 2016 TUSHAR Bianchi [address], [facility] [place], [address], [employer], [facility] 14:55:44 Atrial fibrillation 41811470 Active 2016 TUSHAR Bianchi [address], [facility] [place], [address], [employer], [facility] 14:55:46 Problem Notes None recorded. Procedures Surgical History Date Name Laterality Status Provider Name and Address Organization Details Recorded Time 017 Mammogram Screening completed [facility], [facility] 09/17/2016 14:17:02 017 Electrocardiogram complete completed [facility] 09/17/2016 14:17:46 017 Echocardiography contrast completed [facility] 09/17/2016 14:18:12 017 Chest x-ray 2vw frontal&latl completed [facility] 09/17/2016 14:18:28 016 Colonoscopy completed [facility] 09/17/2016 14:16:32 015 Other completed [facility] 09/17/2016 14:16:45 015 Other completed [facility], [facility] 09/17/2016 14:17:18 014 Unlisted px ant segment eye completed [facility] 09/17/2016 14:16:22 011 Valve replacement/repair completed [facility] 09/17/2016 14:16:06 section completed [facility] 09/17/2016 14:15:52 Imaging Results None recorded. Procedure [...] Not Available No t Available Fluzone High-Dose [id number] (PF) 180 mcg/0.5 mL intramuscul ar syringe [...] % Julissa Watts [facility], [facility] 7 14:03:42 Date Recorded Body height Provider Name an d Address Organization Details Last Updated DateTime 09/21/2016 149.86 cm Celena Monsalve [facility], [facility] 09/21/2016 09:46:51 Date Recorded Body height Body weight Body mass index (BMI) Systolic And Diastolic Provider Name and Address Organization Details Last Updated DateTime 09/24/2016 149.86 cm 663667.35 g 54.3 kg/m2 128/68 mm[Hg] Celena Monsalve [facility], [facility] 09/24/2016 09:04:58 Social History Question Answer Notes LastModified by ClassOwl Details LastModified Time Tobacco Smoking Status Never Smoker Julissa [facility] 09/17/2016 14:13:01 Do You Have An Advance [...] Functional Status Question Answer Note LastModified by IntiguaizShopsy Details LastModified Time What is your level [...] Medical History Condition Response Cancer (location) N Gout N Other N Thyroid Disease N Kidney Stones N [...] high-dose, trivalent, PF 6 completed Julissa bush [facility] 09/17/2016 14:23:52 pneumococcal polysaccharide PPV23 7 completed Julissa bush [facility] 09/17/2016 14:24:06 [facility] live 5 [facility] 14:24:20 Past Encounters Encounter ID Performer Location Encounter Start Date Encounter Closed Date Diagnosis/Indication Diagnosis SNOMED-CT Code Diagnosis ICD10 Code Diagnosis Note [id number] TUSHAR Griffin [facility] [address] [place] [address] 09/17/2016 13:43:14 09/17/2016 15:05:59 Atrial fibrillation 85077144 I48.0 Rate controlled , on anticoagul ation. Long-term current use of anticoagulant 095621541 Z79.01 Will check PT/INR. Pt on 9 mg of Warfarin daily. INR high. Pt to hold Warfarin and restart at 5 mg on Wednesday. Will recheck PT/INR on Wednesday [id number] TUSHAR Griffin [facility] [address] [place] [address] 09/21/2016 09:17:15 09/21/2016 10:11:36 Atrial fibrillation 24668548 I48.0 Subtherape utic. Will recheck lab on . [id number] TUSHAR Griffin [facility] [address] [facility] [address] 09/24/2016 08:59:51 09/24/2016 09:24:20 Atrial fibrillation 39132257 I48.0 Subtherape utic. Will recheck lab on . Long-term current use of anticoagulant 450043705 Z79.01 INR low. Will increase Warfarin to 7.5 mg daily and recheck INR on Wednesday [id number] [facility] [address] [place] [address] 09/28/2016 09:11:17 09/28/2016 11:09:14 Atrial fibrillation 04416925 I48.0 Subtherape utic. Warfarin increased to 10 [...] Figueroa Member ID Guarantor Name 09/23/2016 2 [facility] [id number] Lizabeth Perry [id number] Lizabeth Perry 11/26/2017 1 [place] Lizabeth Perry [id number] Lizabeth Perry Notes Date Note Type [...] needs to have PT/INR Elmer Flores MD [address] [address], [place], [address], [facility] - [facility], [facility] 09/18/2016 10:09:43 OBGyn Episode No OBEpisode recorded.
--- NOTE | 2024-12-07 14:21 | ED_ITS ---
HPI - Extremity Injury (Lower) General Chief Complaint: Extremity Injury, Lower <Deepa Gray PA-C - Last Filed: 12/07/24 18:52> Stated Complaint: Rt knee pain after fall yesterday <Deepa Gray PA-C - Last Filed: 12/07/24 18:52> Time Seen by Provider: 12/07/24 14:21 <Deepa Gray PA-C - Last Filed: 12/07/24 18:52> Focused HPI: This is a 84 year old female that presents to the ER for right knee pain. Reports she sustained a fall yesterday with head injury. Was evaluated in the ER for this. Her knee started to hurt today, she was not elevated for this yesterday. GENERAL: Elderly, well-nourished, and in no acute distress. HEAD: Normocephalic. Contusion over the left eye CHEST: Clear to auscultation. ?No respiratory distress. HEART: Regular rate and rhythm.? NEURO: ?Alert and oriented x3. Patient screened in triage and initial orders placed.? ?Additional care and disposition to be based upon?diagnostic testing and treatment. <Deepa Gray PA-C - Last Filed: 12/07/24 18:52> Related Data Home Medications: Home Medications ?Medication ?Instructions ?Recorded ?Confirmed ?Last Taken ?Type apixaban 2.5 mg tablet (Eliquis) 2.5 mg PO BID 03/20/24 03/20/24 Unknown History atorvastatin 80 mg tablet 80 mg PO HS 03/20/24 03/20/24 Unknown History betamethasone dipropionate 0.05 % 1 applic topical DAILY 03/20/24 03/20/24 Unknown History lotion clopidogrel 75 mg tablet 75 mg PO DAILY 03/20/24 03/20/24 Unknown History diphenhydramine 25 2 tablet PO HS 03/20/24 03/20/24 Unknown History mg-acetaminophen 500 mg tablet (Acetaminophen PM) empagliflozin 25 mg tablet 25 mg PO DAILY 03/20/24 03/20/24 Unknown History (Jardiance) furosemide 20 mg tablet 20 mg PO DAILY 03/20/24 03/20/24 Unknown History insulin degludec 200 unit/mL (3 22 unit subcut DAILY 03/20/24 03/20/24 Unknown History mL) subcutaneous pen loratadine 10 mg tablet (Allergy 10 mg PO HS 03/20/24 03/20/24 Unknown History Relief (loratadine)) metoprolol succinate 100 mg 100 mg PO BID 03/20/24 03/20/24 Unknown History tablet,extended release 24 hr miscellaneous medical supply 03/20/24 03/20/24 Unknown History (Ocusoft Eyelid Cleansing Pads) kequoecs-fduuudc-gedw-lutein tablet 1 tablet PO DAILY 03/20/24 03/20/24 Unknown History multivitamin with minerals 1 tablet PO DAILY 03/20/24 03/20/24 Unknown History (Hair,Skin and Nails tablet) sacubitril 24 mg-valsartan 26 mg 1 tablet PO BID 03/20/24 03/20/24 Unknown History tablet (Entresto) <Deepa Gray PA-C - Last Filed: 12/07/24 18:52> Allergies/Adverse Reactions: Allergies Allergy/AdvReac Type Severity Reaction Status Date / Time No Known Allergies Allergy Verified 12/06/24 08:59 <Deepa Gray PA-C - Last Filed: 12/07/24 18:52> Review of Systems Review of Systems: All systems reviewed & are unremarkable except as noted in HPI and below (HPI) <Matthew Capone MD - Last Filed: 12/07/24 17:57> [facility] Past Medical History Medical History: Medical History Insulin dependent type 2 diabetes mellitus <Deepa Gray PA-C - Last Filed: 12/07/24 18:52> Social History Social History: Social History Smoking status: Never smoker Alcohol intake: current Do You Feel Safe in your Home?: Yes Lack of Transportation: No Lack of Food: Never True Current Housing: I Have Housing Concerned About Future Housing: No Difficulty Paying Gas/Electric Bills: No Difficulty Paying for Meds: No Currently Unemployed: No Education: High School Diploma/GED Difficulty w/ Childcare or Family Care: No Living arrangements: assisted living Additional living arrangements comments: [facility] Spiritual care concerns: No <Deepa Gray PA-C - Last Filed: 12/07/24 18:52> Exam Narrative: Constitutional: Generally well appearing, no acute distress Head: Atraumatic, no deformities. Eyes: Pupils equal, round, and reactive to light. Left periorbital ecchymosis with swelling. Wound with stitches over the left eyebrow intact and well- appearing Neck: Supple, no tracheal deviation, no JVD. ENMT: Mucous membranes moist Cardiovascular: S1, S2 auscultated. No murmurs, rubs, or gallops. No S3/S4. Normal Distal pulses. No peripheral edema. Respiratory: Lung sounds equal. No wheezes, rales, or rhonchi. Gastrointestinal: Abdomen was soft and non-tender. Non-distended. No rebound or guarding. Genitourinary: Deferred Musculoskeletal: Normal muscle tone and bulk. Right knee shows a mild effusion, pain with range of motion. No significant erythema or warmth. Skin: No rashes. Neurological: Strength 5/5 in extremities. Cranial nerves I-XII grossly intact. Distal sensation intact. Mental Status: Awake, alert and oriented x3. Follows commands <Matthew Capone MD - Last Filed: 12/07/24 17:57> Course Vital Signs Vital signs: Vital Signs Temperature 98.5 F 12/07/24 12:44 Pulse Rate 73 12/07/24 12:44 Respiratory Rate 18 12/07/24 12:44 Blood Pressure 155/46 H 12/07/24 12:44 Pulse Oximetry 99 12/07/24 12:44 Oxygen Delivery Room Air 12/07/24 12:44 Temperature 98.5 F 12/07/24 12:44 Pulse Rate 86 12/07/24 16:26 Respiratory Rate 20 12/07/24 16:26 Blood Pressure 157/40 H 12/07/24 16:26 Pulse Oximetry 97 12/07/24 16:26 Oxygen Delivery Room Air 12/07/24 12:44 <Deepa Gray PA-C - Last Filed: 12/07/24 18:52> Vital Signs Temperature 98.5 F 12/07/24 12:44 Pulse Rate 73 12/07/24 12:44 Respiratory Rate 18 12/07/24 12:44 Blood Pressure 155/46 H 12/07/24 12:44 Pulse Oximetry 99 12/07/24 12:44 Oxygen Delivery Room Air 12/07/24 12:44 Temperature 98.5 F 12/07/24 12:44 Pulse Rate 86 12/07/24 16:26 Respiratory Rate 20 12/07/24 16:26 Blood Pressure 157/40 H 12/07/24 16:26 Pulse Oximetry 97 12/07/24 16:26 Oxygen Delivery Room Air 12/07/24 12:44 <Matthew Capone MD - Last Filed: 12/07/24 17:57> MDM - Extremity Injury (Lower) MDM Narrative Medical decision making narrative: Patient presented after having pain starting her right knee after getting up from the hospital recently after having a fall with head injury. X-ray obt ained before I saw the patient showed concerns for possible fracture and recommended CT. CT shows hemarthrosis but no evidence of any fracture. Discussed with patient and her son, he does states she cannot take care of herself when she cannot walk at all on it and she is in assisted living and they cannot take care with their so he is asking for admission to be placed for rehab. Discussed with hospitalist and they agree. Placed in observation. <Matthew Capone MD - Last Filed: 12/07/24 17:57> Imaging Data Radiologist's impression: ITS Impressions Knee X-Ray 12/07/24 15:09 IMPRESSION: Vertical lucency within the distal femur versus the inferior patella for which dedicated plain film evaluation of the patella is recommended versus cross-sectional imaging. Significant degenerative disease is also identified, as detailed above. Moderate suprapatellar joint effusion. Knee CT 12/07/24 17:15 IMPRESSION: 1. Moderate-sized right knee joint effusion with increased attenuation which given history of trauma would be most consistent with a hemarthrosis likely related to soft tissue injury with no evident fracture or other acute osseous abnormality. Differential would include septic arthritis in the appropriate clinical setting and could consider arthrocentesis if there is clinical concern. 2. 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 <Deepa Gray PA-C - Last Filed: 12/07/24 18:52> Discharge Plan Discharge Clinical Impression: Hemarthrosis of knee, right, Inability to ambulate due to knee Contusion of knee, right Qualifiers: Encounter type: initial encounter Qualified Code(s): S80.01XA - Contusion of right knee, initial encounter <Deepa Gray PA-C - Last Filed: 12/07/24 18:52> Patient Disposition: Still a Patient <Deepa Gray PA-C - Last Filed: 12/07/24 18:52> Condition: Stable <Deepa Gray PA-C - Last Filed: 12/07/24 18:52> Patient Language: Slovenian <Deepa Gray PA-C - Last Filed: 12/07/24 18:52> Prescriptions: No Action atorvastatin 80 mg Tablet 80 mg PO HS metoprolol succinate 100 mg Tablet Extended Release 24 Hr 100 mg PO BID clopidogrel 75 mg Tablet 75 mg PO DAILY furosemide 20 mg Tablet 20 mg PO DAILY Hair,Skin and Nails Tablet 1 tablet PO DAILY diphenhydramine-acetaminophen [Acetaminophen PM] 25-500 mg Tablet 2 tablet PO HS betamethasone dipropionate 0.05 % Lotion 1 applic TOPICAL DAILY Rx Instructions: apply to affected areas loratadine [Allergy Relief (loratadine)] 10 mg Tablet 10 mg PO HS myrfrjiq-scfqmto-ofam-lutein Tablet 1 tablet PO DAILY (DME) [employer]cusoft Eyelid Cleansing Pads Pad MISCELLANEOUS Rx Instructions: use as directed at bedtime Eliquis 2.5 mg Tablet 2.5 mg PO BID insulin degludec 200 unit/mL (3 mL) Insulin Pen 22 unit SUBCUT DAILY Jardiance 25 mg Tablet 25 mg PO DAILY Entresto 24-26 mg Tablet 1 tablet PO BID cephalexin 500 mg capsule 500 mg PO Q6H 5 Days Qty: 19 0RF Rx Instructions: received first dose in ED 10/03 afternoon cephalexin 500 mg capsule 500 mg PO Q8H Qty: 21 0RF <Deepa Gray PA-C - Last Filed: 12/07/24 18:52> Follow-up/Referrals: Annie,Gerri Hernandez, [facility]NITTER [facility] [Primary Care Provider] - <Deepa Gray PA-C - Last Filed: 12/07/24 18:52> Time of Disposition: 17:56 <NIRU Henao Last Filed: 12/07/24 18:52> 17:56 <Matthew Capone MD - Last Filed: 12/07/24 17:57>
[2024-12-07 16:26] VITALS: BP 157/40; PULSE 86; RESP 20; O2SAT 97
--- OUTSIDE RECORDS SUMMARY | 2024-12-07 16:54 | XMS_ITS | Clinical Summary ---
Author Organization [facility] Address [facility] [place] [address] Care Team Providers Care Machine Cutter Name Role Phone Unavailable Primary Care Provider [...] Description 01/12/2025 9:40 AM CDT Office Visit [facility] - [facility] [address] [facility], [address] [place] [phone] Christine Maldonado NP 3 [facility] [address] [place] [address] Health Maintenance Due Date Last Done Comments [...]
--- NOTE | 2024-12-07 18:25 | P.HP_ITS ---
H&P: HPI History of Present Illness Date/Time: 12/07/24 18:25 Chief Complaint: Weakness Narrative: 84-year-old female past medical history of diabetes types 2 presents the hospital with weakness and inability to walk. She was seen yesterday in the emergency room for a fall found head CT and CT spine were negative for acute injury. Today she presents with right knee pain and swelling unable to bear weight on leg. The patient states that she woke up in acute pain. She is also complaining of right shoulder pain. She has a large hematoma to her left forehead, periorbital ecchymosis and edema unable to open her left eye with drainage. Patient denies nausea vomiting fever chills. She states that she is having trouble walking lately because her legs are extremely swollen and heavy. Lab work shows hemoglobin of 15.9 which is around baseline, BUN of 27, creatinine of 1.38, GFR 37 which is brown yesterday's labs, calcium at 10.4, UA negative for infection, Right knee CT shows moderate-size right knee joint effusion likely hemo arthrosis, no evidence of fracture. Patient will be admitted for pain control and PT OT. Review of Systems Review of Systems: 12 systems were reviewed and are negativ e except for as per HPI. [facility] Past Medical History Medical History Insulin dependent type 2 diabetes mellitus Social History Social History Smoking status: Never smoker Alcohol intake: current Do You Feel Safe in your Home?: Yes Lack of Transportation: No Lack of Food: Never True Current Housing: I Have Housing Concerned About Future Housing: No Difficulty Paying Gas/Electric Bills: No Difficulty Paying for Meds: No Currently Unemployed: No Education: High School Diploma/GED Difficulty w/ Childcare or Family Care: No Living arrangements: assisted living Additional living arrangements comments: [facility] Spiritual care concerns: No Meds Home Medications and Allergies Home Medications ?Medication ?Instructions ?Recorded ?Confirmed ?Type apixaban 2.5 mg tablet (Eliquis) 2.5 mg PO BID 03/20/24 03/20/24 History atorvastatin 80 mg tablet 80 mg PO HS 03/20/24 03/20/24 History betamethasone dipropionate 0.05 % 1 applic topical DAILY 03/20/24 03/20/24 History lotion clopidogrel 75 mg tablet 75 mg PO DAILY 03/20/24 03/20/24 History diphenhydramine 25 2 tablet PO HS 03/20/24 03/20/24 History mg-acetaminophen 500 mg tablet (Acetaminophen PM) empagliflozin 25 mg tablet 25 mg PO DAILY 03/20/24 03/20/24 History (Jardiance) furosemide 20 mg tablet 20 mg PO DAILY 03/20/24 03/20/24 History insulin degludec 200 unit/mL (3 22 unit subcut DAILY 03/20/24 03/20/24 History mL) subcutaneous pen loratadine 10 mg tablet (Allergy 10 mg PO HS 03/20/24 03/20/24 History Relief (loratadine)) metoprolol succinate 100 mg 100 mg PO BID 03/20/24 03/20/24 History tablet,extended release 24 hr miscellaneous medical supply 03/20/24 03/20/24 History (Ocusoft Eyelid Cleansing Pads) hsuqjvxu-ysgkncr-hwwu-lutein tablet 1 tablet PO DAILY 03/20/24 03/20/24 History multivitamin with minerals 1 tablet PO DAILY 03/20/24 03/20/24 History (Hair,Skin and Nails tablet) sacubitril 24 mg-valsartan 26 mg 1 tablet PO BID 03/20/24 03/20/24 History tablet (Entresto) cephalexin 500 mg capsule 500 mg PO Q6H 5 days #19 caps 10/03/24 Rx cephalexin 500 mg capsule 500 mg PO Q8H #21 caps 12/06/24 Rx Allergies Allergy/AdvReac Type Severity Reaction Status Date / Time No Known Allergies Allergy Verified 12/06/24 08:59 Vital Signs Vital Signs - 24 hr 12/07/24 12:44 12/07/24 16:26 Temperature 98.5 F Pulse Rate 73 86 Respiratory Rate 18 20 Blood Pressure 155/46 H 157/40 H Pulse Oximetry 99 97 Oxygen Delivery Room Air Exam Narrative: General: well appearing, appears stated age. HEENT: normocephalic, hematoma and laceration to left forehead, periorbital left eye ecchymosis and edema with drainage Mucous membranes moist. EOMI, PERRLA, bilateral sclera anicteric, no conjunctival injection. Neck supple without JVD, lymphadenopathy, or bruit. Respiratory: clear to ascultation bilaterally. No rales/rhonic/wheezes. Cardiovascular: Regular rate and rhythm, normal S1-S2 upon ascultation. No murmurs, rubs, or clicks. PMI is nondisplaced, capillary refill less than 3 second. Abdomen: Soft, round, no pulsatile masses, nondistended and nontender. No rebound, no guarding. No CVA tenderness, no hepatosplenomegaly. Bowel sounds present to all four quadrants. No high pitch or tinkling sounds, resonant to percussion. Extremities: No cyanosis, clubbing, or edema present. Pulses are palpable 2/2. Limited range of motion left upper arm and right lower leg due to acute pain Neuro: Alert and orientated x 4. PERRLA. Cranial nerves 2-12 intact without focal deficit. Skin: Warm, dry, and intact, without rash, erythema, or lesion. Psych: pleasant, cooperative, normal speech, normal affect, no hallucinations, no dysarthia Assessment and Plan Assessment and plan (1) Hemarthrosis of knee, right: Code(s): M25.061 - Hemarthrosis, right knee Status: Acute Assessment and Plan: Pain control Elevated PT OT evaluate and treat (2) Fall: Code(s): W19.XXXA - Unspecified fall, initial encounter Status: Acute Assessment and Plan: Head CT and spine negative for acute injury PT OT eval and treat (3) Congestive heart failure: Code(s): I50.9 - Heart failure, unspecified Status: Acute Assessment and Plan: Pulmonary edema seen on partial x-ray IV Lasix b.i.d. Repeat chest x-ray in a.m. Daily weight Fluid restriction Echo pending (4) T2DM (type 2 diabetes mellitus): Code(s): E11.9 - Type 2 diabetes mellitus without complications Status: Acute Assessment and Plan: Diabetic diet SSI and Lantus Accu-Cheks AC and HS Plan Home med list was not sent with patient nursing has requested at from the facility Quality VTE Prophylaxis VTE prophylaxis: mechanical ordered If No VTE Prophylaxis Answer both mechanical and pharmacologic: Reason no pharmacologic proph: medical contraindication Hospitalist MIPS Advance Care Plan I have confirmed that the patient's Advanced Care Plan is present, code status is documented, or surrogate decision maker is listed in patient medical record.: Yes Medication Reconciliation I have utilized all available resources to obtain, update and review the patients current medications (includes all prescriptions, OTC, herbals, cannabis, and nutritional supplements).: Yes
[2024-12-07 19:37] VITALS: BP 158/59; PULSE 75; RESP 18; TEMP 36.6; O2SAT 94
[2024-12-07] MEDS: oxyCODONE HCL (*CRX) 5 MG TAB IR 10 MG PO (20:30)
[2024-12-07] MEDS: ACETAMINOPHEN 325 MG TABLET 650 MG PO (20:30)
[2024-12-07 20:39] VITALS: BMI 39.4
--- NOTE | 2024-12-07 20:40 | ADMGEN ---
This patient, Lizabeth Perry, was admitted to Medical Room 253-01. Patient/family oriented to hospital policies and general routines including ID bracelet, bed and alarms, visiting hours, pain management, procedures, bathroom and other care routines, personal items, smoking policy, room service/diet, and visiting hours. Information on how to activate the Rapid Response Team has been discussed. Patient/Family are encouraged to report perceived risks to care and to ask questions if they do not understand what they are told or what they should do.
[2024-12-07 20:43] VITALS: BP 126/23; PULSE 75; RESP 20; TEMP 36.9; O2SAT 96
--- NOTE | 2024-12-08 | ECHO_ITS ---
Patient Info Name: Lizabeth Perry Age: 84 years : 1940 Gender: Female Ht: 59 in Wt: 197 lbs BSA: 1.98 m2 HR: 72 bpm BP: 121 / 38 mmHg Technical Quality: Fair Exam Date: 12/08/2024 10:56 AM Patient Status: I Admit Date: 12/07/2024 Exam Type: CA echo dop color flow w con Complete two-dimensional, color flow and Doppler transthoracic echocardiogram is performed with contrast to opacify the left ventricle and to improve the deliniation of the left ventricle endocardial borders. Staff Referring Physician: Minnie Navarrete Entry Level Account Executive: Rosa Hendricks Attending Provider: Arthur Villatoro MD Contrast/Agitated Saline Contrast/Ag. Saline: Definity Amount: 2.00 ml Administered By: Rosa Hendricks Summary 1. The left ventricle is mildly dilated with normal systolic function. LVEDD is 5.2cm. The left ventricular ejection fraction is visually estimated to be greater than 60-65%. 2. There is severe aortic stenosis. There is severe aortic regurgitation. 3. There appears to be a calcified annuloplasty ring with no stenosis. There is mild mitral regurgitation. 4. The left atrium is severely dilated. 5. Dilated inferior vena cava with >50% collapse upon inspiration consistent with elevated right atrial pressure, 8 mmHg. Left Ventricle The left ventricle is mildly dilated with normal systolic function. LVEDD is 5.2cm. The left ventricular ejection fraction is visually estimated to be greater than 60-65%. Right Ventricle The right ventricle is normal in size and systolic function. Left Atria The left atrium is severely dilated. Right Atria The right atrium is dilated. Atrial Septum The atrial septum is visually intact. Aortic Valve There is severe aortic stenosis. There is severe aortic regurgitation. Pulmonic Valve The pulmonic valve is not well visualized. Mitral Valve There appears to be a calcified annuloplasty ring with no stenosis. There is mild mitral regurgitation. Tricuspid Valve The tricuspid valve opens well. There is trace tricuspid regurgitation. Pericardium/Pleural Pericardium is normal in appearance with no evidence for significant pericardial effusion. Inferior Vena Cava Dilated inferior vena cava with >50% collapse upon inspiration consistent with elevated right atrial pressure, 8 mmHg. Aorta The aortic root at the level of the sinus of Valsalva measures 3.0 cm in diameter. Left Ventricular Outflow Tract Name Value Normal LVOT 2D LVOT Diameter 1.6 cm LVOT Doppler LVOT Peak Velocity 171 cm/s LVOT Peak Gradient 10 mmHg LVOT Mean Gradient 7 mmHg LVOT VTI 42 cm LVOT VTI/AV VTI Ratio 0.5 LVOT Stroke Volume 89 ml LVOT CO 5.8 l/min LVOT CI 2.9 l/min/m2 Pulmonic Valve Name Value Normal RVOT Doppler RVOT Peak Velocity 70 cm/s RVOT Peak Gradient 2 mmHg PV Doppler PV Peak Velocity 79 cm/s PV Peak Gradient 3 mmHg Mitral Valve Name Value Normal MV Doppler MV Peak Gradient 27 mmHg MV Mean Gradient 7 mmHg MV Area (Cont Eq VTI) 1.5 cm2 MV Diastolic Function MV E Peak Velocity 186 cm/s MV A Peak Velocity 104 cm/s MV E/A 1.8 MV Decel Time (PW) 242 ms MV Annular TDI MV E/e' (Septal) 57.7 MV E/e' (Lateral) 50.1 MV E/e' (Average) 53.9 Tricuspid Valve Name Value Normal Estimated PAP/RSVP RA Pressure 8 mmHg <=5 Aortic Valve Name Value Normal AV Doppler AV Peak Velocity 419 cm/s AV Peak Gradient 70 mmHg AV Mean Gradient 39 mmHg AV VTI 94 cm AV Area (Cont Eq VTI) 0.9 cm2 >=3.0 AV Area (Cont Eq Mikey) 0.9 cm2 AV DI (Mikey) 0.41 AV Regurgitation 2D LVOT Area 2.1 cm2 Ventricles Name Value Normal LV Dimensions 2D/MM IVS Diastolic Thickness (2D) 1.1 cm 0.6-1.0 LVID Diastole (2D) 5.2 cm 3.8-5.2 LVIW Diastolic Thickness (2D) 1.8 cm 0.6-0.9 LVID Systole (2D) 3.0 cm 2.2-3.5 LVOT Diameter 1.6 cm LV Mass (2D Cubed) 335.59 g 67.00-162.00 LV Mass Index (2D Cubed) 169 g/m2 43-95 Relative Wall Thickness (2D) 0.70 <=0.42 LV Fractional Shortening/Ejection Fraction 2D/MM LV Fractional Shortening (2D) 42 % 27-45 LV EF (2D Teichholz) 73 % LV Diastolic Volume (4C MOD) 110 ml LV EF (4C MOD) 64 % LV Diastolic Volume (2C MOD) 138 ml LV EF (2C MOD) 52 % LV Diastolic Volume (BP MOD) 123 ml 46-106 LV Diastolic Volume Index (BP MOD) 62 ml/m2 29-61 LV Systolic Volume (BP MOD) 51 ml 14-42 LV Systolic Volume Index (BP MOD) 26 ml/m2 8-24 LV EF (BP MOD) 59 % 54-74 LV Diastolic Length (4C) 7.1 cm LV Systolic Length (4C) 6.5 cm LV Stroke Volume (4C MOD) 71 ml Atria Name Value Normal LA Dimensions LA Volume (4C A-L) 115 ml LA Volume (BP A-L) 109 ml RA Dimensions RA Systolic Major [place] Length (4C) 6.1 cm 2.2-2.8 RA Area (4C) 22.8 cm2 <=18.0 Report Signatures
[2024-12-08] MEDS: ALBUMIN HUMAN 25% 25 GM/100 ML 100 ML IVPB (00:32)
[2024-12-08] MEDS: ACETAMINOPHEN 325 MG TABLET 650 MG PO ×5 (00:33→23:15)
[2024-12-08] MEDS: ERYTHROMYCIN OPHTH OINTMENT 1 GM TUBE 1 APPLIC LEFT EYE ×6 (00:41→20:05)
[2024-12-08] MEDS: FUROSEMIDE INJ 40 MG/4 ML VIAL 20 MG IV PUSH (02:14)
[2024-12-08 05:28] LABS: Hematocrit 42.0 % (37.0-47.0); Hemoglobin 13.7 g/dL (12.0-15.0); Immature Granulocyte Percent A 0.3 % (0-0.5); Lymphocytes Absolute Auto 0.83 K/mm3 (0.9-3.2); Mean Corpuscular HGB Conc 32.6 g/dl (32-36); Mean Corpuscular Hemoglobin 29.9 pg (26-34); Mean Corpuscular Volume 91.7 fl (80-100); Nucleated Red Blood Cells Absolute Auto 0.000 K/mm3 (0.0-0.012); Nucleated Red Blood Cells Perc 0.0 % (0.0-0.2); Platelet Count Result 146 k/mm3 (150-375); Red Blood Count 4.58 M/mm3 (4.2-5.4); White Blood Count 7.1 K/mm3 (4.5-10.0)
[2024-12-08 05:31] LABS: Anion Gap 7 mmol/L (4-12); Blood Urea Nitrogen 24 mg/dL (7-17); Calcium 10.0 mg/dL (8.4-10.2); Carbon Dioxide 28 mmol/L (22-30); Chloride 103 mmol/L (98-107); Estimated Glomerular Filt Rate 42; Glucose 103 mg/dL (65-110); Potassium 3.5 mmol/L (3.4-5.0); Sodium 138 mmol/L (137-145)
[2024-12-08 05:41] VITALS: BP 121/38; PULSE 69; RESP 17; TEMP 36.5; O2SAT 90
--- NOTE | 2024-12-08 08:19 | P.PNIM_ITS ---
Progress Note: A&P Assessment and Plan (1) Fall: Code(s): W19.XXXA - Unspecified fall, initial encounter Status: Acute Assessment and Plan: Mechanical ground level fall from patient tripping over her croc. Denies any dizziness/lightheadedness prior to fall. - Head CTL No acute intracranial abnormality but a left periorbital soft tissue hematoma noted - C spine CT: no acute fracture and severe cervical spondylosis - Chest XR: Mild pulmonary edema. Superimposed infection cannot be excluded. Repeat CXR 12/08 showed improving interstitial edema. WBC WNL and afebrile. Denies shortness of breath or cough. Low concern for pneumonia. Monitor. - Shoulder XR: Degenerative change at the left shoulder including severe acromioclavicular osteoarthritis. No acute osseous abnormality. - Knee XR: Vertical lucency within the distal femur versus the inferior patella for which dedicated plain film evaluation of the patella is recommended versus cross-sectional imaging. Significant degenerative disease is also i dentified.Moderate suprapatellar joint effusion. - Knee CT: Moderate-sized right knee joint effusion with increased attenuation which given history of trauma would be most consistent with a hemarthrosis likely related to soft tissue injury with no evident fracture or other acute osseous abnormality. Differential would include septic arthritis in the appropriate clinical setting and could consider arthrocentesis if there is clinical concern. 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 See plan below for hemarthrosis - PT/OT (2) Hemarthrosis of knee, right: Code(s): M25.061 - Hemarthrosis, right knee Status: Acute Assessment and Plan: - Knee XR: Vertical lucency within the distal femur versus the inferior patella for which dedicated plain film evaluation of the patella is recommended versus cross-sectional imaging. Significant degenerative disease is also identified.Moderate suprapatellar joint effusion. - Knee CT: Moderate-sized right knee joint effusion with increased attenuation which given history of trauma would be most consistent with a hemarthrosis likely related to soft tissue injury with no evident fracture or other acute osseous abnormality. Differential would include septic arthritis in the appr opriate clinical setting and could consider arthrocentesis if there is clinical concern. 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 - analgesics - caroline wrap for compression - elevate the limb - PT/OT (3) Congestive heart failure: Code(s): I50.9 - Heart failure, unspecified Status: Acute Assessment and Plan: Chronic. Does not appear in acute exacerbation, patient appears euvolemic CXR showed Mild pulmonary edema. Superimposed infection cannot be excluded. Repeat CXR 12/08 showed improving interstial edema. - lasix 20 mg PO daily - metoprolol 100 mg BID - Entresto BID on hold for borderline hypotension - spironolactone 12.5 mg daily holding for borderline hypotension - Echo showed LVEF 60-65% with severe aortic stenosis and severe aortic regurgitation (4) T2DM (type 2 diabetes mellitus): Code(s): E11.9 - Type 2 diabetes mellitus without complications Status: Acute Assessment and Plan: - hypoglycemia protocol - POC blood glucose ACHS - home medication - tresiba 22 units daily, ozempic 2 mg weekly - correct regimen ordered - lantus 22 units daily and SSI - A1C 6.9 03/21/24 Glucose well controlled. Continue to monitor. Time Spent With Patient Time with patient: 25 - 35 minutes Subjective Date/time seen: 12/08/24 08:19 Interval history: 84 year old female with past medical history of diabetes, CHF, and atrial fibrillation presents to the hospital for with weakness and right knee pain. Patient is pleasant sitting up comfortably in bed. She continues to endorse right knee pain but states that this has improved since admission. She denies any pain to the head/eye. She is able to open the eye and denies pain with EOM. She has no other complaints denying chest pain, palpitations, shortness of breath, nausea/vomiting and abdominal pain. Review of Systems Review of Systems: All systems reviewed & are unremarkable except as noted in HPI and below Exam Narrative: AF HR 76 RR 20 SpO2 93 BP 98/66 General: female in no acute respiratory distress who is nontoxic appearing, sitting up in bed. HEENT: Extraocular movement intact without associated pain. Sclera clear and anicteric. No facial asymmetry. Swelling and severe brusing to the left eye. Able to left eye. Chest: Lungs are clear to auscultation bilaterally. No wheezes or crackles. CV: Heart was regular rate and rhythm. Abd: Abdomen was soft. Nontender. Nondistended. Positive bowel sounds. Ext: No clubbing, cyanosis, or edema. DP pulses bilaterally. AROM intact to RLE but slow and small movements. Varus pain. Neuro: Patient is alert and oriented x3. Speech is clear. Objective Data Vital Signs Vital Signs: Vital Signs - 24 hr 12/07/24 12:44 12/07/24 16:26 12/07/24 19:37 Temperature 98.5 F 97.8 F Pulse Rate 73 86 75 Respiratory Rate 18 20 18 Blood Pressure 155/46 H 157/40 H 158/59 H Pulse Oximetry 99 97 94 Oxygen Delivery Room Air 12/07/24 20:43 12/08/24 05:41 Temperature 98.4 F 97.7 F Pulse Rate 75 69 Respiratory Rate 20 17 Blood Pressure 126/23 L 121/38 L Pulse Oximetry 96 90 Oxygen Delivery Intake/Output Intake/Output: Intake & Output 12/05/24 12/06/24 12/07/24 12/08/24 23:59 23:59 23:59 23:59 Intake Total 177 Output Total 400 Balance -223 Meds/Results Medications: Active Medications Generic Name Dose Route Start Last Admin Trade Name Freq PRN Reason Stop Dose Admin Acetaminophen 650 mg 12/07/24 18:30 12/08/24 05:51 Acetaminophen 325 Mg Tablet PO 650 mg Q6HR JAIME Administration Dextrose 12.5 gm 12/07/24 22:39 Dextrose 50% 25 Gm/50 Ml Syringe IV PUSH PRN PRN Hypoglycemia Protocol Docusate Sodium 100 mg 12/08/24 09:00 Docusate Sodium 100 Mg Capsule PO Q12HR JAIME Erythromycin 1 applic 12/07/24 21:00 12/08/24 05:51 Erythromycin Ophth Ointment 1 Gm Tube LEFT EYE 1 applic Q4HWA JAIME Administration Furosemide 20 mg 12/08/24 09:00 Furosemide Inj 40 Mg/4 Ml Vial IV PUSH BID JAIME Glucagon 1 mg 12/07/24 22:39 Glucagon For Inj 1 Mg Vial IM PRN PRN Hypoglycemia Protocol Glucose 15 gm 12/07/24 22:39 Glucose Oral Gel 15 Gm Of Glucse In 37.5 Gm Tube PO PRN PRN Hypoglycemia Protocol Dextrose 1,000 mls @ 100 mls/hr 12/07/24 22:39 Dextrose 5% 1,000 Ml IVPB PRN PRN Hypoglycemia Protocol Insulin Aspart 2 - 5 units 12/08/24 08:00 Insulin Aspart (*Bkc) 100 Units/Ml SUB-Q TIDWM JAIME Protocol Insulin Glargine 22 units 12/08/24 21:00 Insulin Glargine (*Bkc) 100 Units/Ml 0.25 units/kg (22 units) SUB-Q HS JAIME Lidocaine 1 patch 12/08/24 09:00 Lidocaine 5% Patch TRANSDERM DAILY JAIME Methocarbamol 500 mg 12/07/24 21:00 12/07/24 23:26 Methocarbamol 500 Mg Tablet PO Not Given QID JAIME Morphine Sulfate 2 mg 12/07/24 20:58 Morphine Sulfate (*Crx) 2 Mg/Ml Inj IV PUSH Q4H PRN Breakthrough Pain Oxycodone HCl 5 mg 12/07/24 18:29 Oxycodone Hcl (*Crx) 5 Mg Tab Ir PO Q4H PRN Pain Rated 4-6 Oxycodone HCl 10 mg 12/07/24 18:29 12/07/24 20:30 Oxycodone Hcl (*Crx) 5 Mg Tab Ir PO 10 mg Q4H PRN Administration Pain Rated 7-10 Perflutren Lipid Microsphere 0 ml 12/07/24 22:39 Perflutren Lipid Microspheres 1.5 Ml Vial Diluted To 10 Ml Total Volume IV PUSH 12/10/24 22:42 ONCE PRN adequate visualization Protocol Radiology Results: ITS Impressions Knee X-Ray 12/07/24 15:09 IMPRESSION: Vertical lucency within the distal femur versus the inferior patella for which dedicated plain film evaluation of the patella is recommended versus cross-sectional imaging. Significant degenerative disease is also identified, as detailed above. Moderate suprapatellar joint effusion. Knee CT 12/07/24 17:15 IMPRESSION: 1. Moderate-sized right knee joint effusion with increased attenuation which giv en history of trauma would be most consistent with a hemarthrosis likely related to soft tissue injury with no evident fracture or other acute osseous abnormality. Differential would include septic arthritis in the appropriate clinical setting and could consider arthrocentesis if there is clinical concern. 2. 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 Shoulder X-Ray 12/07/24 21:17 IMPRESSION: 1. Degenerative change at the left shoulder including severe acromioclavicular osteoarthritis. No acute osseous abnormality. 2. Cardiomegaly with likely unchanged mild pulmonary edema in the left lower and right mid and lower lung zones with differential including pneumonia. Chest X-Ray 12/08/24 06:12 Impression: 1: Improving interstitial edema. 2: Stable cardiomegaly. Labs Labs: Laboratory Results - last 24 hr 12/08/24 12/08/24 03:19 05:07 WBC 7.1 RBC 4.58 Hgb 13.7 Hct 42.0 MCV 91.7 MCH 29.9 MCHC 32.6 RDW 14.7 H Plt Count 146 L MPV 9.9 Immature Gran % (Auto) 0.3 Neut % (Auto) 71.5 Lymph % (Auto) 11.8 L [place] % (Auto) 14.3 H Eos % (Auto) 1.7 Baso % (Auto) 0.4 Lymph # (Auto) 0.83 L [place] # (Auto) 1.0 H Eos # (Auto) 0.1 Baso # (Auto) 0.0 Abs Immat Gran (auto) 0.02 Absolute Neuts (auto) 5.1 Absolute Nucleated RBC 0.000 Nucleated RBC % 0.0 Sodium 138 Potassium 3.5 Chloride 103 Carbon Dioxide 28 Anion Gap 7 BUN 24 H Creatinine 1.23 H Estim Creat Clear Calc Not Reportable Estimated GFR 42 L Glucose 103 POC Capillary Glucose 79 Calcium 10.0 Quality VTE Prophylaxis VTE prophylaxis: mechanical ordered
[2024-12-08 10:27] VITALS: PULSE 69
[2024-12-08] MEDS: METOPROLOL SUCCINATE EXT REL 100 MG TABCR PO ×2 (10:27→17:38)
[2024-12-08] MEDS: LIDOCAINE 5% PATCH 1 PATCH TRANSDERM (10:27)
[2024-12-08] MEDS: DOCUSATE SODIUM 100 MG CAPSULE PO (10:27)
[2024-12-08] MEDS: PERFLUTREN LIPID MICROSPHERES 1.5 ML VIAL DILUTED TO 10 ML TOTAL VOLUME IV PUSH (12:04)
--- NOTE | 2024-12-08 12:04 | IVDEFINITY ---
Prior to administration of IV Definity the patient was educated on the risks and benefits of the imaging enhancing agent including potential adverse side effects. The patient verbalized understanding. Allergies were verified. No exclusion criteria were identified and at least one of the following inclusion criteria were met: 1) physician request, 2) patient technically difficult to image (per the [place] [employer] guidelines of two or more segments not discernable within the apical view), or 3) questionable left ventricular function. ?
[2024-12-08 12:58] VITALS: BP 98/66; PULSE 76; RESP 20; TEMP 36.6; O2SAT 93
[2024-12-08 17:36] VITALS: BP 130/41; PULSE 69
[2024-12-08 17:38] VITALS: PULSE 69
[2024-12-08] MEDS: INSULIN GLARGINE (*BKC) 100 UNITS/ML 22 UNITS SUB-Q (20:07)
[2024-12-08 21:13] VITALS: BP 119/70; PULSE 78; RESP 16; TEMP 36.9; O2SAT 100
[2024-12-09] MEDS: ALBUTEROL SULFATE (*SP) AEROSOL 1 PUFF 2 PUFF INHALATION (00:02)
[2024-12-09] MEDS: oxyCODONE HCL (*CRX) 5 MG TAB IR 10 MG PO ×3 (01:09→21:52)
[2024-12-09] MEDS: ERYTHROMYCIN OPHTH OINTMENT 1 GM TUBE 1 APPLIC LEFT EYE ×5 (05:44→21:50)
[2024-12-09] MEDS: ACETAMINOPHEN 325 MG TABLET 650 MG PO ×3 (05:45→17:01)
[2024-12-09 06:00] VITALS: BP 136/34; PULSE 72; RESP 18; TEMP 36.6; O2SAT 94
--- NOTE | 2024-12-09 07:36 | P.PNIM_ITS ---
Progress Note: A&P Assessment and Plan (1) Fall: Code(s): W19.XXXA - Unspecified fall, initial encounter Status: Acute Assessment and Plan: Mechanical ground level fall from patient tripping over her croc. Denies any dizziness/lightheadedness prior to fall. - Head CTL No acute intracranial abnormality but a left periorbital soft tissue hematoma noted - C spine CT: no acute fracture and severe cervical spondylosis - Chest XR: Mild pulmonary edema. Superimposed infection cannot be excluded. Repeat CXR 12/08 showed improving interstitial edema. WBC WNL and afebrile. Denies shortness of breath or cough. Low concern for pneumonia. Monitor. - Shoulder XR: Degenerative change at the left shoulder including severe acromioclavicular osteoarthritis. No acute osseous abnormality. - Knee XR: Vertical lucency within the distal femur versus the inferior patella for which dedicated plain film evaluation of the patella is recommended versus cross-sectional imaging. Significant degenerative disease is also i dentified.Moderate suprapatellar joint effusion. - Knee CT: Moderate-sized right knee joint effusion with increased attenuation which given history of trauma would be most consistent with a hemarthrosis likely related to soft tissue injury with no evident fracture or other acute osseous abnormality. Differential would include septic arthritis in the appropriate clinical setting and could consider arthrocentesis if there is clinical concern. 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 See plan below for hemarthrosis - PT/OT (2) Hemarthrosis of knee, right: Code(s): M25.061 - Hemarthrosis, right knee Status: Acute Assessment and Plan: - Knee XR: Vertical lucency within the distal femur versus the inferior patella for which dedicated plain film evaluation of the patella is recommended versus cross-sectional imaging. Significant degenerative disease is also identified.Moderate suprapatellar joint effusion. - Knee CT: Moderate-sized right knee joint effusion with increased attenuation which given history of trauma would be most consistent with a hemarthrosis likely related to soft tissue injury with no evident fracture or other acute osseous abnormality. Differential would include septic arthritis in the appr opriate clinical setting and could consider arthrocentesis if there is clinical concern. 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 - analgesics - ezequiel wrap for compression - elevate the limb - PT/OT Resumed patients Plavix and eliquis. Continue to closely monitor. If pain or swelling worsens can consider ortho consult. (3) Congestive heart failure: Code(s): I50.9 - Heart failure, unspecified Status: Acute Assessment and Plan: Chronic. Does not appear in acute exacerbation, patient appears euvolemic CXR showed Mild pulmonary edema. Superimposed infection cannot be excluded. Repeat CXR 12/08 showed improving interstial edema. - lasix 20 mg PO daily - metoprolol 100 mg BID - Entresto BID on hold for borderline hypotension - spironolactone 12.5 mg daily holding for borderline hypotension - Echo showed LVEF 60-65% with severe aortic stenosis and severe aortic regurgitation per patient history of aortic valve replacement (4) T2DM (type 2 diabetes mellitus): Code(s): E11.9 - Type 2 diabetes mellitus without complications Status: Acute Assessment and Plan: - hypoglycemia protocol - POC blood glucose ACHS - home medication - tresiba 22 units daily, ozempic 2 mg weekly - correct regimen ordered - lantus 22 units daily and SSI - A1C 6.9 03/21/24 Glucose well controlled. Continue to monitor. (5) Coronary artery disease: Code(s): I25.10 - Atherosclerotic heart disease of [place] coronary artery without angina pectoris Status: Acute Assessment and Plan: Chronic s/p 3 stents placed in 2022 Continue plavix and atorvastatin (6) Atrial fibrillation: Code(s): I48.91 - Unspecified atrial fibrillation Status: Acute Assessment and Plan: Chronic, continue home medications Currently in sinus rhythm - metoprolol 100 mg BID - eliquis 5 mg BID Discussed with patient the risk of bleeds on eliquis and plavix. She stated understanding but wishes to continue treatment given afib and recent DVT in September 2024. Time Spent With Patient Time with patient: 25 - 35 minutes Subjective Date/time seen: 12/09/24 07:36 Interval history: 84 year old female with past medical history of diabetes, CHF, CAD s/p stent placement in 2022, hx of DVT to right groin s/p thrombectomy September 2024, aortic valve replacement, and atrial fibrillation presents to the hospital for with weakness and right knee pain following a fall. Patient is pleasant sitting up comfortably in her bed. She states the pain is better today. She notes that she is able to keep per left eye open and denies an ocular pain. She was able to work with occupational therapy and had difficulty with ambulation. She has no other complaints denying chest pain, shortness of breath, palpitations, nausea/vomiting and abdominal pain. She also denies any tingling/numbness or shooting pain to the lower extremities and states that s welling has improved. Review of Systems Review of Systems: All systems reviewed & are unremarkable except as noted in HPI and below Exam Narrative: AF HR 72 RR 18 Spo2 94 BP 136/34 General: female in no acute respiratory distress who is nontoxic appearing, sitting up in bed. HEENT: Extraocular movement intact without associated pain. Sclera clear and anicteric. No facial asymmetry. Swelling and bruising to the left eye extending to the jaw. PERRLA. EOM intact without associated pain. Able to keep eye open today. Chest: Lungs are clear to auscultation bilaterally. No wheezes or crackles. CV: Heart was regular rate and rhythm. Abd: Abdomen was soft. Nontender. Nondistended. Positive bowel sounds. Ext: No clubbing, cyanosis, or edema. DP pulses bilaterally. AROM intact to RLE but slow and small movements. Ezequiel wrap in place. Neuro: Patient is alert and oriented x3. Speech is clear. Objective Data Vital Signs Vital Signs: Vital Signs - 24 hr 12/08/24 10:27 12/08/24 10:30 12/08/24 12:58 Temperature 97.8 F Pulse Rate 69 76 Respiratory Rate 20 Blood Pressure 98/66 L Pulse Oximetry 93 Oxygen Delivery Room Air 12/08/24 17:36 12/08/24 17:38 12/08/24 20:00 Temperature Pulse Rate 69 69 Respiratory Rate Blood Pressure 130/41 L Pulse Oximetry Oxygen Delivery Room Air 12/08/24 21:13 12/09/24 06:00 Temperature 98.4 F 97.8 F Pulse Rate 78 72 Respiratory Rate 16 18 Blood Pressure 119/70 136/34 L Pulse Oximetry 100 94 Oxygen Delivery Intake/Output Intake/Output: Intake & Output 12/06/24 12/07/24 12/08/24 12/09/24 23:59 23:59 23:59 23:59 Intake Total 837 150 Output Total 550 375 Balance 287 -225 Meds/Results Medications: Active Medications Generic Name Dose Route Start Last Admin Trade Name Freq PRN Reason Stop Dose Admin Acetaminophen 650 mg 12/07/24 18:30 12/09/24 05:45 Acetaminophen 325 Mg Tablet PO 650 mg Q6HR JAIME Administration Albuterol 2 puff 12/08/24 23:53 12/09/24 00:02 Albuterol Sulfate (*Sp) Aerosol 1 Puff INHALATION 2 puff Q6HRT PRN Administration Shortness Of Breath Dextrose 12.5 gm 12/07/24 22:39 Dextrose 50% 25 Gm/50 Ml Syringe IV PUSH PRN PRN Hypoglycemia Protocol Docusate Sodium 100 mg 12/08/24 09:00 12/08/24 20:05 Docusate Sodium 100 Mg Capsule PO Not Given Q12HR JAIME Erythromycin 1 applic 12/07/24 21:00 12/09/24 05:44 Erythromycin Ophth Ointment 1 Gm Tube LEFT EYE 1 applic Q4HWA JAIME Administration Furosemide 20 mg 12/09/24 09:00 Furosemide 20 Mg Tablet PO DAILY JAIME Glucagon 1 mg 12/07/24 22:39 Glucagon For Inj 1 Mg Vial IM PRN PRN Hypoglycemia Protocol Glucose 15 gm 12/07/24 22:39 Glucose Oral Gel 15 Gm Of Glucse In 37.5 Gm Tube PO PRN PRN Hypoglycemia Protocol Dextrose 1,000 mls @ 100 mls/hr 12/07/24 22:39 Dextrose 5% 1,000 Ml IVPB PRN PRN Hypoglycemia Protocol Insulin Aspart 2 - 5 units 12/08/24 08:00 12/08/24 17:16 Insulin Aspart (*Bkc) 100 Units/Ml SUB-Q Not Given TIDWM [facility] Protocol Insulin Glargine 22 units 12/08/24 21:00 12/08/24 20:07 Insulin Glargine (*Bkc) 100 Units/Ml 0.25 units/kg (22 units) 22 units SUB-Q Administration HS JAIME Lidocaine 1 patch 12/08/24 09:00 12/08/24 10:27 Lidocaine 5% Patch TRANSDERM 1 patch DAILY JAIME Administration Methocarbamol 500 mg 12/07/24 21:00 12/08/24 20:04 Methocarbamol 500 Mg Tablet PO 500 mg QID JAIME Administration Metoprolol Succinate 100 mg 12/08/24 10:30 12/08/24 17:38 Metoprolol Succinate Ext Rel 100 Mg Tabcr PO 100 mg BID JAIME Administration Morphine Sulfate 2 mg 12/07/24 20:58 Morphine Sulfate (*Crx) 2 Mg/Ml Inj IV PUSH Q4H PRN Breakthrough Pain Oxycodone HCl 5 mg 12/07/24 18:29 Oxycodone Hcl (*Crx) 5 Mg Tab Ir PO Q4H PRN Pain Rated 4-6 Oxycodone HCl 10 mg 12/07/24 18:29 12/09/24 01:09 Oxycodone Hcl (*Crx) 5 Mg Tab Ir PO 10 mg Q4H PRN Administration Pain Rated 7-10 Radiology Results: ITS Impressions Knee X-Ray 12/07/24 15:09 IMPRESSION: Vertical lucency within the distal femur versus the inferior patella for which dedicated plain film evaluation of the patella is recommended versus cross-sectional imaging. Significant degenerative disease is also identified, as detailed above. Moderate suprapatellar joint effusion. Knee CT 12/07/24 17:15 IMPRESSION: 1. Moderate-sized right knee joint effusion with increased attenuation which given history of trauma would be most consistent with a hemarthrosis likely related to soft tissue injury with no evident fracture or other acute osseous a bnormality. Differential would include septic arthritis in the appropriate clinical setting and could consider arthrocentesis if there is clinical concern. 2. 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 Shoulder X-Ray 12/07/24 21:17 IMPRESSION: 1. Degenerative change at the left shoulder including severe acromioclavicular osteoarthritis. No acute osseous abnormality. 2. Cardiomegaly with likely unchanged mild pulmonary edema in the left lower and right mid and lower lung zones with differential including pneumonia. Chest X-Ray 12/08/24 06:12 Impression: 1: Improving interstitial edema. 2: Stable cardiomegaly. Venous Doppler Study 12/08/24 15:29 IMPRESSION: 1. No deep venous thrombosis. Labs Labs: Laboratory Results - last 24 hr 12/08/24 12/08/24 12/08/24 13:02 16:56 19:45 POC Capillary Glucose 101 118 H 190 H Quality VTE Prophylaxis VTE prophylaxis: mechanical ordered
[2024-12-09 08:21] LABS: Hematocrit 44.2 % (37.0-47.0); Hemoglobin 14.0 g/dL (12.0-15.0); Mean Corpuscular HGB Conc 31.7 g/dl (32-36); Mean Corpuscular Hemoglobin 29.7 pg (26-34); Mean Corpuscular Volume 93.6 fl (80-100); Platelet Count Result 133 k/mm3 (150-375); Red Blood Count 4.72 M/mm3 (4.2-5.4); White Blood Count 5.5 K/mm3 (4.5-10.0)
[2024-12-09 08:44] LABS: Alanine Aminotransferase 18 U/L (6-35); Albumin Level 3.6 g/dL (3.5-5.1); Alkaline Phosphatase 66 U/L (38-126); Anion Gap 5 mmol/L (4-12); Aspartate Amino Transferase 36 U/L (14-36); Bilirubin,Total 1.1 mg/dL (0.2-1.3); Blood Urea Nitrogen 24 mg/dL (7-17); Calcium 9.4 mg/dL (8.4-10.2); Carbon Dioxide 29 mmol/L (22-30); Chloride 101 mmol/L (98-107); Estimated Glomerular Filt Rate 46; Glucose 95 mg/dL (65-110); Potassium 3.4 mmol/L (3.4-5.0); Sodium 135 mmol/L (137-145); Total Protein 6.6 g/dL (6.3-8.2)
[2024-12-09 08:57] VITALS: PULSE 76
[2024-12-09] MEDS: FUROSEMIDE 20 MG TABLET PO (08:57)
[2024-12-09] MEDS: DOCUSATE SODIUM 100 MG CAPSULE PO ×2 (08:57→21:49)
[2024-12-09] MEDS: METOPROLOL SUCCINATE EXT REL 100 MG TABCR PO ×2 (08:57→17:00)
[2024-12-09] MEDS: PANTOPRAZOLE 40 MG TABLET PO (08:57)
[2024-12-09] MEDS: oxyCODONE HCL (*CRX) 5 MG TAB IR PO (08:58)
[2024-12-09] MEDS: LIDOCAINE 5% PATCH 1 PATCH TRANSDERM ×2 (09:03→21:51)
[2024-12-09 13:56] VITALS: BP 112/59; PULSE 74; RESP 18; TEMP 36.2; O2SAT 93
[2024-12-09] MEDS: APIXABAN 5 MG TABLET PO (17:00)
[2024-12-09 21:09] VITALS: BP 128/57; PULSE 75; RESP 16; TEMP 36.4; O2SAT 95
[2024-12-09 21:23] VITALS: O2SAT 95
[2024-12-09] MEDS: ATORVASTATIN 40 MG TABLET 80 MG PO (21:49)
[2024-12-09] MEDS: oxyBUTYnin CHLORIDE XL 5 MG TAB.ER.24 30 MG PO (21:50)
[2024-12-09] MEDS: VENLAFAXINE HCL XR 75 MG CAP.ER.24H PO (21:51)
[2024-12-09] MEDS: INSULIN GLARGINE (*BKC) 100 UNITS/ML 22 UNITS SUB-Q (21:59)
[2024-12-10 05:48] LABS: Hematocrit 42.5 % (37.0-47.0); Hemoglobin 13.7 g/dL (12.0-15.0); Mean Corpuscular HGB Conc 32.2 g/dl (32-36); Mean Corpuscular Hemoglobin 30.4 pg (26-34); Mean Corpuscular Volume 94.4 fl (80-100); Platelet Count Result 154 k/mm3 (150-375); Red Blood Count 4.50 M/mm3 (4.2-5.4); White Blood Count 4.9 K/mm3 (4.5-10.0)
[2024-12-10 05:59] LABS: Alanine Aminotransferase 16 U/L (6-35); Albumin Level 3.3 g/dL (3.5-5.1); Alkaline Phosphatase 64 U/L (38-126); Anion Gap 6 mmol/L (4-12); Aspartate Amino Transferase 32 U/L (14-36); Bilirubin,Total 0.9 mg/dL (0.2-1.3); Blood Urea Nitrogen 21 mg/dL (7-17); Calcium 9.1 mg/dL (8.4-10.2); Carbon Dioxide 26 mmol/L (22-30); Chloride 105 mmol/L (98-107); Estimated Glomerular Filt Rate 48; Glucose 98 mg/dL (65-110); Potassium 3.6 mmol/L (3.4-5.0); Sodium 137 mmol/L (137-145); Total Protein 6.3 g/dL (6.3-8.2)
[2024-12-10] MEDS: ERYTHROMYCIN OPHTH OINTMENT 1 GM TUBE 1 APPLIC LEFT EYE ×5 (06:06→20:31)
[2024-12-10] MEDS: ACETAMINOPHEN 325 MG TABLET 650 MG PO ×4 (06:06→23:42)
[2024-12-10 06:26] VITALS: BP 133/55; PULSE 70; RESP 14; TEMP 36.8; O2SAT 92
[2024-12-10 09:13] VITALS: PULSE 72; RESP 16; O2SAT 92
[2024-12-10] MEDS: CLOPIDOGREL BISULFATE 75 MG TABLET PO (09:13)
[2024-12-10] MEDS: FUROSEMIDE 20 MG TABLET PO (09:13)
[2024-12-10] MEDS: APIXABAN 5 MG TABLET PO ×2 (09:13→16:23)
[2024-12-10] MEDS: METOPROLOL SUCCINATE EXT REL 100 MG TABCR PO ×2 (09:13→16:25)
[2024-12-10] MEDS: PANTOPRAZOLE 40 MG TABLET PO (09:13)
[2024-12-10] MEDS: DOCUSATE SODIUM 100 MG CAPSULE PO ×2 (09:13→20:29)
--- NOTE | 2024-12-10 09:38 | PM.IMPN ---
Progress Note: A&P Assessment and Plan (1) Fall: Code(s): W19.XXXA - Unspecified fall, initial encounter Status: Acute Assessment and Plan: Mechanical ground level fall from patient tripping over her croc. Denies any dizziness/lightheadedness prior to fall. - Head CTL No acute intracranial abnormality but a left periorbital soft tissue hematoma noted - C spine CT: no acute fracture and severe cervical spondylosis - Chest XR: Mild pulmonary edema. Superimposed infection cannot be excluded. Repeat CXR 12/08 showed improving interstitial edema. WBC WNL and afebrile. Denies shortness of breath or cough. Low concern for pneumonia. Monitor. - Shoulder XR: Degenerative change at the left shoulder including severe acromioclavicular osteoarthritis. No acute osseous abnormality. - Humerus XR ordered as patient continues to endorse left arm pain to the shaft rather than the shoulder region - Knee XR: Vertical lucency within the distal femur versus the inferior patella for which dedicated plain film evaluation of the patella is recommended versus cross-sectional imaging. Significant degenerative disease is also identified.Moderate suprapatellar joint effusion. - Knee CT: Moderate-sized right knee joint effusion with increased attenuation which given history of trauma would be most consistent with a hemarthrosis likely related to soft tissue injury with no evident fracture or other acute osseous abnormality. Differential would include septic arthritis in the appropriate clinical setting and could consider arthrocentesis if there is clinical concern. 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 See plan below for hemarthrosis - PT/OT recommending SNF placement (2) Hemarthrosis of knee, right: Code(s): M25.061 - Hemarthrosis, right knee Status: Acute Assessment and Plan: - Knee XR: Vertical lucency within the distal femur versus the inferior patella for which dedicated plain film evaluation of the patella is recommended versus cross-sectional imaging. Significant degenerative disease is also identified.Moderate suprapatellar joint effusion. - Knee CT: Moderate-sized right knee joint effusion with increased attenuation which given history of trauma would be most consistent with a hemarthrosis likely related to soft tissue injury with no evident fracture or other acute osseous abnormality. Differential would include septic arthritis in the appropriate clinical setting and could consider arthrocentesis if there is clinical concern. 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 - analgesics - caroline wrap for compression - elevate the limb - PT/OT recommending SNF placement Continue patients Plavix and eliquis. Continue to closely monitor. Pain and swelling has improved. Patient able to work with PT/OT. (3) Congestive heart failure: Code(s): I50.9 - Heart failure, unspecified Status: Acute Assessment and Plan: Chronic. Does not appear in acute exacerbation, patient appears euvolemic CXR showed Mild pulmonary edema. Superimposed infection cannot be excluded. Repeat CXR 12/08 showed improving interstial edema. - lasix 20 mg PO daily - metoprolol 100 mg BID - Entresto BID resumed as blood pressure running SBP 130s. Continue to monitor. - spironolactone 12.5 mg daily, continue to hold. Resume pending blood pressure trend. - Echo showed LVEF 60-65% with severe aortic stenosis and severe aortic regurgitation per patient history of aortic valve replacement (4) T2DM (type 2 diabetes mellitus): Code(s): E11.9 - Type 2 diabetes mellitus without complications Status: Acute Assessment and Plan: - hypoglycemia protocol - POC blood glucose ACHS - home medication - tresiba 22 units daily, ozempic 2 mg weekly - correct regimen ordered - lantus 22 units daily and SSI - A1C 6.9 03/21/24 Glucose well controlled. Continue to monitor. (5) Coronary artery disease: Code(s): I25.10 - Atherosclerotic heart disease of [place] coronary artery without angina pectoris Status: Acute Assessment and Plan: Chronic s/p 3 stents placed in 2022 Continue plavix and atorvastatin (6) Atrial fibrillation: Code(s): I48.91 - Unspecified atrial fibrillation Status: Acute Assessment and Plan: Chronic, continue home medications Currently in sinus rhythm - metoprolol 100 mg BID - eliquis 5 mg BID Discussed with patient the risk of bleeds on eliquis and plavix. She stated understanding but wishes to continue treatment given afib and recent DVT in September 2024. Time Spent With Patient Time with patient: 25 - 35 minutes Subjective Date/time seen: 12/10/24 09:38 Interval history: 84 year old female with past medical history of diabetes, CHF, CAD s/p stent placement in 2022, hx of DVT to right groin s/p thrombectomy September 2024, aortic valve replacement, and atrial fibrillation presents to the hospital for with weakness and right knee pain following a fall. Patient is pleasant sitting up comfortably in bed. She states that the pain and swelling to the right knee has much improved. She states she was able to work well with therapy yesterday. She endorses left arm upper pain worse with movement. She has no other complaints denying chest pain, palpitations, nausea/vomiting, abdominal pain, shortness of breath, dizziness/lightheadedness. Review of Systems Review of Systems: All systems reviewed & are unremarkable except as noted in HPI and below Exam Narrative: AF HR General: female in no acute respiratory distress who is nontoxic appearing, sitting up in bed. HEENT: Extraocular movement intact without associated pain. Sclera clear and anicteric. No facial asymmetry. Swelling and bruising to the left eye extending to the jaw, improved from yesterday. PERRLA. EOM intact without associated pain. Left eye remains open throughout exam. Chest: Lungs are clear but diminished to auscultation bilaterally. No wheezes or crackles. CV: Heart was regular rate and rhythm. Abd: Abdomen was soft. Nontender. Nondistended. Positive bowel sounds. Ext: No clubbing, cyanosis, or edema. DP pulses bilaterally. AROM intact to RLE but slow and small movements. Edema to the right knee, improved from yesterday. No redness or warmth to the right knee. No bruising. Neuro: Patient is alert and oriented x3. Speech is clear. Objective Data Vital Signs Vital Signs: Vital Signs - 24 hr 12/09/24 11:02 12/09/24 13:56 12/09/24 13:57 Temperature 97.2 F L Pulse Rate 74 Respiratory Rate 18 Blood Pressure 112/59 L Pulse Oximetry 93 Oxygen Delivery Room Air Room Air Fraction of Inspired Oxygen 12/09/24 20:00 12/09/24 21:09 12/09/24 21:23 Temperature 97.6 F Pulse Rate 75 Respiratory Rate 16 Blood Pressure 128/57 L Pulse Oximetry 95 95 Oxygen Delivery Room Air Room Air Fraction of Inspired Oxygen 12/10/24 06:26 12/10/24 09:13 Temperature 98.3 F Pulse Rate 70 72 Respiratory Rate 14 Blood Pressure 133/55 L Pulse Oximetry 92 Oxygen Delivery Fraction of Inspired Oxygen Intake/Output Intake/Output: Intake & Output 12/07/24 12/08/24 12/09/24 12/10/24 23:59 23:59 23:59 23:59 Intake Total 837 1400 170 Output Total 550 675 450 Balance 287 725 -280 Meds/Results Medications: Active Medications Generic Name Dose Route Start Last Admin Trade Name Freq PRN Reason Stop Dose Admin Acetaminophen 650 mg 12/07/24 18:30 12/10/24 06:06 Acetaminophen 325 Mg Tablet PO 650 mg Q6HR JAIME Administration Albuterol 2 puff 12/08/24 23:53 12/09/24 00:02 Albuterol Sulfate (*Sp) Aerosol 1 Puff INHALATION 2 puff Q6HRT PRN Administration Shortness Of Breath Apixaban 5 mg 12/09/24 17:00 12/10/24 09:13 Apixaban 5 Mg Tablet PO 5 mg BID JAIME Administration Atorvastatin Calcium 80 mg 12/09/24 21:00 12/09/24 21:49 Atorvastatin 40 Mg Tablet PO 80 mg HS JAIME Administration Clopidogrel Bisulfate 75 mg 12/10/24 09:00 12/10/24 09:13 Clopidogrel Bisulfate 75 Mg Tablet PO 75 mg DAILY JAIME Administration Dextrose 12.5 gm 12/07/24 22:39 Dextrose 50% 25 Gm/50 Ml Syringe IV PUSH PRN PRN Hypoglycemia Protocol Docusate Sodium 100 mg 12/08/24 09:00 12/10/24 09:13 Docusate Sodium 100 Mg Capsule PO 100 mg Q12HR JAIME Administration Erythromycin 1 applic 12/07/24 21:00 12/10/24 09:13 Erythromycin Ophth Ointment 1 Gm Tube LEFT EYE 1 applic Q4HWA JAIME Administration Furosemide 20 mg 12/09/24 09:00 12/10/24 09:13 Furosemide 20 Mg Tablet PO 20 mg DAILY JAIME Administration Glucagon 1 mg 12/07/24 22:39 Glucagon For Inj 1 Mg Vial IM PRN PRN Hypoglycemia Protocol Glucose 15 gm 12/07/24 22:39 Glucose Oral Gel 15 Gm Of Glucse In 37.5 Gm Tube PO PRN PRN Hypoglycemia Protocol Dextrose 1,000 mls @ 100 mls/hr 12/07/24 22:39 Dextrose 5% 1,000 Ml IVPB PRN PRN Hypoglycemia Protocol Insulin Aspart 2 - 5 units 12/08/24 08:00 12/10/24 09:00 Insulin Aspart (*Bkc) 100 Units/Ml SUB-Q Not Given TIDWM JAIME Protocol Insulin Glargine 22 units 12/08/24 21:00 12/09/24 21:59 Insulin Glargine (*Bkc) 100 Units/Ml 0.25 units/kg (22 units) 22 units SUB-Q Administration [facility] Lidocaine 1 patch 12/08/24 09:00 12/09/24 21:51 Lidocaine 5% Patch TRANSDERM 1 patch DAILY JAIME Administration Methocarbamol 500 mg 12/07/24 21:00 12/10/24 09:13 Methocarbamol 500 Mg Tablet PO 500 mg QID JAIME Administration Metoprolol Succinate 100 mg 12/08/24 10:30 12/10/24 09:13 Metoprolol Succinate Ext Rel 100 Mg Tabcr PO 100 mg BID [facility] Administration Morphine Sulfate 2 mg 12/07/24 20:58 Morphine Sulfate (*Crx) 2 Mg/Ml Inj IV PUSH Q4H PRN Breakthrough Pain Oxybutynin Chloride 30 mg 12/09/24 21:00 12/09/24 21:50 Oxybutynin Chloride Xl 5 Mg Tab.Er.24 PO 30 mg [facility] Administration Oxycodone HCl 5 mg 12/07/24 18:29 12/09/24 08:58 Oxycodone Hcl (*Crx) 5 Mg Tab Ir PO 5 mg Q4H PRN Administration Pain Rated 4-6 Oxycodone HCl 10 mg 12/07/24 18:29 12/09/24 21:52 Oxycodone Hcl (*Crx) 5 Mg Tab Ir PO 10 mg Q4H PRN Administration Pain Rated 7-10 Pantoprazole Sodium 40 mg 12/09/24 09:00 12/10/24 09:13 Pantoprazole 40 Mg Tablet PO 40 mg QAM [facility] Administration Venlafaxine HCl 75 mg 12/09/24 21:00 12/09/24 21:51 Venlafaxine Hcl Xr 75 Mg Cap.Er.24h PO 75 mg HS [facility] Administration Radiology Results: ITS Impressions Knee X-Ray 12/07/24 15:09 IMPRESSION: Vertical lucency within the distal femur versus the inferior patella for which dedicated plain film evaluation of the patella is recommended versus cross-sectional imaging. Significant degenerative disease is also identified, as detailed above. Moderate suprapatellar joint effusion. Knee CT 12/07/24 17:15 IMPRESSION: 1. Moderate-sized right knee joint effusion with increased attenuation which given history of trauma would be most consistent with a hemarthrosis likely related to soft tissue injury with no evident fracture or other acute osseous abnormality. Differential would include septic arthritis in the appropriate clinical setting and could consider arthrocentesis if there is clinical concern. 2. 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 Shoulder X-Ray 12/07/24 21:17 IMPRESSION: 1. Degenerative change at the left shoulder including severe acromioclavicular osteoarthritis. No acute osseous abnormality. 2. Cardiomegaly with likely unchanged mild pulmonary edema in the left lower and right mid and lower lung zones with differential including pneumonia. Chest X-Ray 12/08/24 06:12 Impression: 1: Improving interstitial edema. 2: Stable cardiomegaly. Venous Doppler Study 12/08/24 15:29 IMPRESSION: 1. No deep venous thrombosis. Labs Labs: Laboratory Results - last 24 hr 12/09/24 12/09/24 12/09/24 11:57 16:36 21:19 WBC RBC Hgb Hct MCV MCH MCHC RDW Plt Count MPV Sodium Potassium Chloride Carbon Dioxide Anion Gap BUN Creatinine Estim Creat Clear Calc Estimated GFR Glucose POC Capillary Glucose 174 H 113 H 171 H Calcium Total Bilirubin AST ALT Alkaline Phosphatase Total Protein Albumin 12/10/24 12/10/24 05:20 07:51 WBC 4.9 RBC 4.50 Hgb 13.7 Hct 42.5 MCV 94.4 MCH 30.4 MCHC 32.2 RDW 15.1 H Plt Count 154 MPV 9.6 Sodium 137 Potassium 3.6 Chloride 105 Carbon Dioxide 26 Anion Gap 6 BUN 21 H Creatinine 1.08 H Estim Creat Clear Calc Not Reportable Estimated GFR 48 L Glucose 98 POC Capillary Glucose 92 Calcium 9.1 Total Bilirubin 0.9 AST 32 ALT 16 Alkaline Phosphatase 64 Total Protein 6.3 Albumin 3.3 L Quality VTE Prophylaxis VTE prophylaxis: mechanical ordered and pharmacologic ordered
[2024-12-10] MEDS: INSULIN ASPART (*BKC) 100 UNITS/ML SUB-Q (12:01)
[2024-12-10 14:00] VITALS: BP 134/73; PULSE 76; RESP 18; TEMP 36.6; O2SAT 94
[2024-12-10] MEDS: SACUBITRIL/VALSARTAN 24-26 MG TABLET 1 TAB PO (16:23)
[2024-12-10 16:25] VITALS: PULSE 75
[2024-12-10] MEDS: oxyBUTYnin CHLORIDE XL 5 MG TAB.ER.24 30 MG PO (20:28)
[2024-12-10] MEDS: VENLAFAXINE HCL XR 75 MG CAP.ER.24H PO (20:29)
[2024-12-10] MEDS: ATORVASTATIN 40 MG TABLET 80 MG PO (20:29)
[2024-12-10] MEDS: LIDOCAINE 5% PATCH 1 PATCH TRANSDERM (20:29)
[2024-12-10] MEDS: INSULIN GLARGINE (*BKC) 100 UNITS/ML 22 UNITS SUB-Q (20:33)
[2024-12-10 22:00] VITALS: BP 119/53; PULSE 70; RESP 20; TEMP 37.1; O2SAT 93
[2024-12-10 22:07] VITALS: O2SAT 96
[2024-12-11] MEDS: MELATONIN 5 MG TABLET PO (00:03)
[2024-12-11] MEDS: ACETAMINOPHEN 325 MG TABLET 650 MG PO ×4 (05:04→23:40)
[2024-12-11] MEDS: ERYTHROMYCIN OPHTH OINTMENT 1 GM TUBE 1 APPLIC LEFT EYE ×5 (05:05→20:23)
[2024-12-11 05:23] LABS: Hematocrit 44.2 % (37.0-47.0); Hemoglobin 14.0 g/dL (12.0-15.0); Mean Corpuscular HGB Conc 31.7 g/dl (32-36); Mean Corpuscular Hemoglobin 29.9 pg (26-34); Mean Corpuscular Volume 94.2 fl (80-100); Platelet Count Result 157 k/mm3 (150-375); Red Blood Count 4.69 M/mm3 (4.2-5.4); White Blood Count 4.6 K/mm3 (4.5-10.0)
[2024-12-11 05:36] LABS: Alanine Aminotransferase 17 U/L (6-35); Albumin Level 3.3 g/dL (3.5-5.1); Alkaline Phosphatase 66 U/L (38-126); Anion Gap 6 mmol/L (4-12); Aspartate Amino Transferase 33 U/L (14-36); Bilirubin,Total 0.8 mg/dL (0.2-1.3); Blood Urea Nitrogen 21 mg/dL (7-17); Calcium 9.3 mg/dL (8.4-10.2); Carbon Dioxide 28 mmol/L (22-30); Chloride 104 mmol/L (98-107); Estimated Glomerular Filt Rate 51; Glucose 96 mg/dL (65-110); Potassium 3.5 mmol/L (3.4-5.0); Sodium 138 mmol/L (137-145); Total Protein 6.3 g/dL (6.3-8.2)
[2024-12-11 06:00] VITALS: BP 125/60; PULSE 73; RESP 16; TEMP 36.9; O2SAT 97
--- NOTE | 2024-12-11 07:54 | PM.IMPN ---
Progress Note: A&P Assessment and Plan (1) Fall: Code(s): W19.XXXA - Unspecified fall, initial encounter Status: Acute Assessment and Plan: Mechanical ground level fall from patient tripping over her croc. Denies any dizziness/lightheadedness prior to fall. - Head CTL No acute intracranial abnormality but a left periorbital soft tissue hematoma noted - C spine CT: no acute fracture and severe cervical spondylosis - Chest XR: Mild pulmonary edema. Superimposed infection cannot be excluded. Repeat CXR 12/08 showed improving interstitial edema. WBC WNL and afebrile. Denies shortness of breath or cough. Low concern for pneumonia. Monitor. - Shoulder XR: Degenerative change at the left shoulder including severe acromioclavicular osteoarthritis. No acute osseous abnormality. - Humerus XR: No acute osseous finding in the humerus. Possible glenoid lytic lesion. - Shoulder CT: Significant degenerative osteoarthritic disease, without lytic or blastic lesions identified. - Knee XR: Vertical lucency within the distal femur versus the inferior patella for which dedicated plain film evaluation of the patella is recommended versus cross-sectional imaging. Significant degenerative disease is also identified.Moderate suprapatellar joint effusion. - Knee CT: Moderate-sized right knee joint effusion with increased attenuation which given history of trauma would be most consistent with a hemarthrosis likely related to soft tissue injury with no evident fracture or other acute osseous abnormality. Differential would include septic arthritis in the appropriate clinical setting and could consider arthrocentesis if there is clinical concern. 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 See plan below for hemarthrosis - PT/OT recommending SNF, care coordination working on placement (2) Hemarthrosis of knee, right: Code(s): M25.061 - Hemarthrosis, right knee Status: Acute Assessment and Plan: - Knee XR: Vertical lucency within the distal femur versus the inferior patella for which dedicated plain film evaluation of the patella is recommended versus cross-sectional imaging. Significant degenerative disease is also identified.Moderate suprapatellar joint effusion. - Knee CT: Moderate-sized right knee joint effusion with increased attenuation which given history of trauma would be most consistent with a hemarthrosis likely related to soft tissue injury with no evident fracture or other acute osseous abnormality. Differential would include septic arthritis in the appropriate clinical setting and could consider arthrocentesis if there is clinical concern. 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 - analgesics - caroline wrap for compression - elevate the limb - PT/OT recommending SNF placement Continue patients Plavix and eliquis. Continue to closely monitor. Pain and swelling continues to slightly improve Will obtain a repeat XR to reassess joint effusion (3) Congestive heart failure: Code(s): I50.9 - Heart failure, unspecified Status: Acute Assessment and Plan: Chronic. Does not appear in acute exacerbation, patient appears euvolemic CXR showed Mild pulmonary edema. Superimposed infection cannot be excluded. Repeat CXR 12/08 showed improving interstial edema. - lasix 20 mg PO daily - metoprolol 100 mg BID - Entresto BID - spironolactone 12.5 mg daily resumed - Echo showed LVEF 60-65% with severe aortic stenosis and severe aortic regurgitation per patient history of aortic valve replacement (4) T2DM (type 2 diabetes mellitus): Code(s): E11.9 - Type 2 diabetes mellitus without complications Status: Acute Assessment and Plan: - hypoglycemia protocol - POC blood glucose ACHS - home medication - tresiba 22 units daily, ozempic 2 mg weekly - correct regimen ordered - lantus 22 units daily and SSI - A1C 6.9 03/21/24 Glucose well controlled. Continue to monitor. (5) Coronary artery disease: Code(s): I25.10 - Atherosclerotic heart disease of [place] coronary artery without angina pectoris Status: Acute Assessment and Plan: Chronic s/p 3 stents placed in 2022 Continue plavix and atorvastatin (6) Atrial fibrillation: Code(s): I48.91 - Unspecified atrial fibrillation Status: Acute Assessment and Plan: Chronic, continue home medications Currently in sinus rhythm - metoprolol 100 mg BID - eliquis 5 mg BID Discussed with patient the risk of bleeds on eliquis and plavix. She stated understanding but wishes to continue treatment given afib and recent DVT in September 2024. Time Spent With Patient Time with patient: 25 - 35 minutes Subjective Date/time seen: 12/11/24 07:54 Interval history: 84 year old female with past medical history of diabetes, CHF, CAD s/p stent placement in 2022, hx of DVT to right groin s/p thrombectomy September 2024, aortic valve replacement, and atrial fibrillation presents to the hospital for with weakness and right knee pain following a fall. Patient is sitting up comfortably bed. She continues to endorse pain to the left arm denies any associated tingling/numbness. She states that the swelling continues to improve that she continues to slight twinges of pain to her right knee. She can denies any associated tingling/numbness to the lower extremity. She has no other complaints denying chest pain, shortness a breath, palpitations, nausea/vomiting and abdominal pain. Review of Systems Review of Systems: All systems reviewed & are unremarkable except as noted in HPI and below Exam Narrative: AF HR 75 RR 16 Spo2 97 BP 118/82 General: female in no acute respiratory distress who is nontoxic appearing, sitting up in bed. HEENT: Extraocular movement intact without associated pain. Sclera clear and anicteric. No facial asymmetry. Swelling and bruising to the left eye extending to the jaw. PERRLA. EOM intact without associated pain. Left eye remains open throughout exam. Chest: Lungs are clear to auscultation bilaterally. No wheezes or crackles. CV: Heart was regular rate and rhythm. Abd: Abdomen was soft. Nontender. Nondistended. Positive bowel sounds. Ext: No clubbing, cyanosis, or edema. DP pulses bilaterally. AROM intact to RLE but slow and small movements. Edema to the lateral right knee, improved from yesterday. No redness or warmth to the right knee. No bruising. Neuro: Patient is alert and oriented x3. Speech is clear. Objective Data Vital Signs Vital Signs: Vital Signs - 24 hr 12/10/24 09:13 12/10/24 09:13 12/10/24 14:00 Temperature 97.8 F Pulse Rate 72 76 Respiratory Rate 16 18 Blood Pressure 134/73 Pulse Oximetry 92 94 Oxygen Delivery Room Air Fraction of Inspired Oxygen 12/10/24 16:25 12/10/24 20:00 12/10/24 22:00 Temperature 98.7 F Pulse Rate 75 70 Respiratory Rate 20 Blood Pressure 119/53 L Pulse Oximetry 93 Oxygen Delivery Room Air Fraction of Inspired Oxygen 21 12/10/24 22:07 12/11/24 06:00 Temperature 98.5 F Pulse Rate 73 Respiratory Rate 16 Blood Pressure 125/60 Pulse Oximetry 96 97 Oxygen Delivery Room Air Fraction of Inspired Oxygen 21 Intake/Output Intake/Output: Intake & Output 0712/09/24 12/10/24 12/11/24 23:59 23:59 23:59 23:59 Intake Total 837 1400 950 450 Output Total 550 675 950 400 Balance 287 725 0 50 Meds/Results Medications: Active Medications Generic Name Dose Route Start Last Admin Trade Name Freq PRN Reason Stop Dose Admin Acetaminophen 650 mg 12/07/24 18:30 12/11/24 05:04 Acetaminophen 325 Mg Tablet PO 650 mg Q6HR JAIEM Administration Albuterol 2 puff 12/08/24 23:53 12/09/24 00:02 Albuterol Sulfate (*Sp) Aerosol 1 Puff INHALATION 2 puff Q6HRT PRN Administration Shortness Of Breath Apixaban 5 mg 12/09/24 17:00 12/10/24 16:23 Apixaban 5 Mg Tablet PO 5 mg BID JAIME Administration Atorvastatin Calcium 80 mg 12/09/24 21:00 12/10/24 20:29 Atorvastatin 40 Mg Tablet PO 80 mg HS JAIME Administration Clopidogrel Bisulfate 75 mg 12/10/24 09:00 12/10/24 09:13 Clopidogrel Bisulfate 75 Mg Tablet PO 75 mg DAILY JAIME Administration Dextrose 12.5 gm 12/07/24 22:39 Dextrose 50% 25 Gm/50 Ml Syringe IV PUSH PRN PRN Hypoglycemia Protocol Docusate Sodium 100 mg 12/08/24 09:00 12/10/24 20:29 Docusate Sodium 100 Mg Capsule PO 100 mg Q12HR JAIME Administration Erythromycin 1 applic 12/07/24 21:00 12/11/24 05:05 Erythromycin Ophth Ointment 1 Gm Tube LEFT EYE 1 applic Q4HWA JAIME Administration Furosemide 20 mg 12/09/24 09:00 12/10/24 09:13 Furosemide 20 Mg Tablet PO 20 mg DAILY JAIME Administration Glucagon 1 mg 12/07/24 22:39 Glucagon For Inj 1 Mg Vial IM PRN PRN Hypoglycemia Protocol Glucose 15 gm 12/07/24 22:39 Glucose Oral Gel 15 Gm Of Glucse In 37.5 Gm Tube PO PRN PRN Hypoglycemia Protocol Dextrose 1,000 mls @ 100 mls/hr 12/07/24 22:39 Dextrose 5% 1,000 Ml IVPB PRN PRN Hypoglycemia Protocol Insulin Aspart 2 - 5 units 12/08/24 08:00 12/10/24 16:26 Insulin Aspart (*Bkc) 100 Units/Ml SUB-Q Not Given TIDWM [facility] Protocol Insulin Glargine 22 units 12/08/24 21:00 12/10/24 20:33 Insulin Glargine (*Bkc) 100 Units/Ml 0.25 units/kg (22 units) 22 units SUB-Q Administration [facility] Lidocaine 1 patch 12/10/24 21:00 12/10/24 20:29 Lidocaine 5% Patch TRANSDERM 1 patch HS [facility] Administration Methocarbamol 500 mg 12/07/24 21:00 12/10/24 20:29 Methocarbamol 500 Mg Tablet PO 500 mg QID JAIME Administration Metoprolol Succinate 100 mg 12/08/24 10:30 12/10/24 16:25 Metoprolol Succinate Ext Rel 100 Mg Tabcr PO 100 mg BID [facility] Administration Morphine Sulfate 2 mg 12/07/24 20:58 Morphine Sulfate (*Crx) 2 Mg/Ml Inj IV PUSH Q4H PRN Breakthrough Pain Oxybutynin Chloride 30 mg 12/09/24 21:00 12/10/24 20:28 Oxybutynin Chloride Xl 5 Mg Tab.Er.24 PO 30 mg HS [facility] Administration Oxycodone HCl 5 mg 12/07/24 18:29 12/09/24 08:58 Oxycodone Hcl (*Crx) 5 Mg Tab Ir PO 5 mg Q4H PRN Administration Pain Rated 4-6 Oxycodone HCl 10 mg 12/07/24 18:29 12/09/24 21:52 Oxycodone Hcl (*Crx) 5 Mg Tab Ir PO 10 mg Q4H PRN Administration Pain Rated 7-10 Pantoprazole Sodium 40 mg 12/09/24 09:00 12/10/24 09:13 Pantoprazole 40 Mg Tablet PO 40 mg QAM JAIME Administration Sacubitril/Valsartan 1 tab 12/10/24 17:00 12/10/24 16:23 Sacubitril/Valsartan 24-26 Mg Tablet PO 1 tab BID JAIME Administration Venlafaxine HCl 75 mg 12/09/24 21:00 12/10/24 20:29 Venlafaxine Hcl Xr 75 Mg Cap.Er.24h PO 75 mg HS [facility] Administration Radiology Results: ITS Impressions Knee X-Ray 12/07/24 15:09 IMPRESSION: Vertical lucency within the distal femur versus the inferior patella for which dedicated plain film evaluation of the patella is recommended versus cross-sectional imaging. Significant degenerative disease is also identified, as detailed above. Moderate suprapatellar joint effusion. Knee CT 12/07/24 17:15 IMPRESSION: 1. Moderate-sized right knee joint effusion with increased attenuation which given history of trauma would be most consistent with a hemarthrosis likely related to soft tissue injury with no evident fracture or other acute osseous abnormality. Differential would include septic arthritis in the appropriate clinical setting and could consider arthrocentesis if there is clinical concern. 2. 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 Shoulder X-Ray 12/07/24 21:17 IMPRESSION: 1. Degenerative change at the left shoulder including severe acromioclavicular osteoarthritis. No acute osseous abnormality. 2. Cardiomegaly with likely unchanged mild pulmonary edema in the left lower and right mid and lower lung zones with differential including pneumonia. Chest X-Ray 12/08/24 06:12 Impression: 1: Improving interstitial edema. 2: Stable cardiomegaly. Venous Doppler Study 12/08/24 15:29 IMPRESSION: 1. No deep venous thrombosis. Humerus X-Ray 12/10/24 14:29 IMPRESSION: No acute osseous finding in the humerus. Possible glenoid lytic lesion. Recommend CT of left shoulder for further evaluation. Labs Labs: Laboratory Results - last 24 hr 12/10/24 12/10/24 12/10/24 07:51 11:31 16:18 WBC RBC Hgb Hct MCV MCH MCHC RDW Plt Count MPV Sodium Potassium Chloride Carbon Dioxide Anion Gap BUN Creatinine Estim Creat Clear Calc Estimated GFR Glucose POC Capillary Glucose 92 208 H 176 H Calcium Total Bilirubin AST ALT Alkaline Phosphatase Total Protein Albumin 12/10/24 12/11/24 20:33 05:03 WBC 4.6 RBC 4.69 Hgb 14.0 Hct 44.2 MCV 94.2 MCH 29.9 MCHC 31.7 L RDW 14.7 H Plt Count 157 MPV 9.6 Sodium 138 Potassium 3.5 Chloride 104 Carbon Dioxide 28 Anion Gap 6 BUN 21 H Creatinine 1.03 H Estim Creat Clear Calc Not Reportable Estimated GFR 51 L Glucose 96 POC Capillary Glucose 175 H Calcium 9.3 Total Bilirubin 0.8 AST 33 ALT 17 Alkaline Phosphatase 66 Total Protein 6.3 Albumin 3.3 L Quality VTE Prophylaxis VTE prophylaxis: mechanical ordered and pharmacologic ordered
[2024-12-11 08:41] VITALS: PULSE 73
[2024-12-11] MEDS: METOPROLOL SUCCINATE EXT REL 100 MG TABCR PO ×2 (08:41→16:14)
[2024-12-11] MEDS: DOCUSATE SODIUM 100 MG CAPSULE PO ×2 (08:41→20:25)
[2024-12-11] MEDS: SACUBITRIL/VALSARTAN 24-26 MG TABLET 1 TAB PO ×2 (08:42→16:13)
[2024-12-11] MEDS: PANTOPRAZOLE 40 MG TABLET PO (08:42)
[2024-12-11] MEDS: APIXABAN 5 MG TABLET PO ×2 (08:42→16:14)
[2024-12-11] MEDS: FUROSEMIDE 20 MG TABLET PO (08:42)
[2024-12-11] MEDS: CLOPIDOGREL BISULFATE 75 MG TABLET PO (08:42)
[2024-12-11 08:43] VITALS: PULSE 73
--- NOTE | 2024-12-11 10:33 | PCPTNOTE ---
Attempted to see patient for PT, however patient was out of the room for testing.
--- NOTE | 2024-12-11 12:35 | P.CDI_ITS ---
CDI Query Clarification Request Please clarify type and acuity of heart failure if known. * Acute * Chronic * Acute on Chronic * Unknown * Systolic * Diastolic * Combined Systolic and Diastolic * Unknown The medical chart reflects the following: (3) Congestive heart failure: Code(s): I50.9 - Heart failure, unspecified Status: Acute Assessment and Plan: Chronic. Does not appear in acute exacerbation, patient appears euvolemic CXR showed Mild pulmonary edema. Superimposed infection cannot be excluded. Repeat CXR 12/08 showed improving interstial edema. - lasix 20 mg PO daily - metoprolol 100 mg BID - Entresto BID resumed as blood pressure running SBP 130s. Continue to monitor. - spironolactone 12.5 mg daily, continue to hold. Resume pending blood pressure trend. - Echo showed LVEF 60-65% with severe aortic stenosis and severe aortic regurgitation per patient history of aortic valve replacement CXR 12/06: IMPRESSION: Mild pulmonary edema. Superimposed infection cannot be excluded. Clinical correlation is recommended CXR 12/08: Impression: 1: Improving interstitial edema. 2: Stable cardiomegaly. IV lasix IV bumex
[2024-12-11 14:00] VITALS: BP 118/82; PULSE 75; RESP 16; TEMP 36.3; O2SAT 97
[2024-12-11 16:14] VITALS: PULSE 75
[2024-12-11] MEDS: LIDOCAINE 5% PATCH 1 PATCH TRANSDERM (20:24)
[2024-12-11] MEDS: ATORVASTATIN 40 MG TABLET 80 MG PO (20:24)
[2024-12-11] MEDS: oxyBUTYnin CHLORIDE XL 5 MG TAB.ER.24 30 MG PO (20:25)
[2024-12-11] MEDS: VENLAFAXINE HCL XR 75 MG CAP.ER.24H PO (20:26)
[2024-12-11] MEDS: INSULIN GLARGINE (*BKC) 100 UNITS/ML 22 UNITS SUB-Q (20:26)
[2024-12-11 20:49] VITALS: BP 135/54; PULSE 73; RESP 20; TEMP 36.4; O2SAT 96
[2024-12-12] MEDS: MELATONIN 5 MG TABLET PO ×2 (00:49→20:10)
[2024-12-12] MEDS: ACETAMINOPHEN 325 MG TABLET 650 MG PO ×4 (05:06→23:40)
[2024-12-12] MEDS: ERYTHROMYCIN OPHTH OINTMENT 1 GM TUBE 1 APPLIC LEFT EYE ×5 (05:06→20:10)
[2024-12-12 05:19] LABS: Hematocrit 44.6 % (37.0-47.0); Hemoglobin 14.5 g/dL (12.0-15.0); Mean Corpuscular HGB Conc 32.5 g/dl (32-36); Mean Corpuscular Hemoglobin 30.1 pg (26-34); Mean Corpuscular Volume 92.7 fl (80-100); Platelet Count Result 168 k/mm3 (150-375); Red Blood Count 4.81 M/mm3 (4.2-5.4); White Blood Count 4.6 K/mm3 (4.5-10.0)
[2024-12-12 05:37] VITALS: BP 151/67; PULSE 79; RESP 20; TEMP 36.4; O2SAT 99
[2024-12-12 05:44] LABS: Alanine Aminotransferase 16 U/L (6-35); Albumin Level 3.4 g/dL (3.5-5.1); Alkaline Phosphatase 69 U/L (38-126); Anion Gap 4 mmol/L (4-12); Aspartate Amino Transferase 32 U/L (14-36); Bilirubin,Total 0.8 mg/dL (0.2-1.3); Blood Urea Nitrogen 17 mg/dL (7-17); Calcium 9.5 mg/dL (8.4-10.2); Carbon Dioxide 32 mmol/L (22-30); Chloride 104 mmol/L (98-107); Estimated Glomerular Filt Rate 54; Glucose 76 mg/dL (65-110); Potassium 4.2 mmol/L (3.4-5.0); Sodium 140 mmol/L (137-145); Total Protein 6.5 g/dL (6.3-8.2)
[2024-12-12] MEDS: CLOPIDOGREL BISULFATE 75 MG TABLET PO (08:22)
[2024-12-12] MEDS: FUROSEMIDE 20 MG TABLET PO (08:22)
[2024-12-12] MEDS: SACUBITRIL/VALSARTAN 24-26 MG TABLET 1 TAB PO ×2 (08:22→16:31)
[2024-12-12] MEDS: DOCUSATE SODIUM 100 MG CAPSULE PO ×2 (08:22→20:10)
[2024-12-12] MEDS: APIXABAN 5 MG TABLET PO ×2 (08:22→16:30)
[2024-12-12] MEDS: PANTOPRAZOLE 40 MG TABLET PO (08:22)
[2024-12-12 08:24] VITALS: PULSE 72
[2024-12-12] MEDS: METOPROLOL SUCCINATE EXT REL 100 MG TABCR PO ×2 (08:24→16:30)
[2024-12-12 08:27] VITALS: BP 131/52; PULSE 72; O2SAT 100
--- NOTE | 2024-12-12 09:20 | PM.IMPN ---
Progress Note: A&P Assessment and Plan (1) Fall: Code(s): W19.XXXA - Unspecified fall, initial encounter Status: Acute Assessment and Plan: Mechanical ground level fall from patient tripping over her croc. Denies any dizziness/lightheadedness prior to fall. - Head CTL No acute intracranial abnormality but a left periorbital soft tissue hematoma noted - C spine CT: no acute fracture and severe cervical spondylosis - Chest XR: Mild pulmonary edema. Superimposed infection cannot be excluded. Repeat CXR 12/08 showed improving interstitial edema. WBC WNL and afebrile. Denies shortness of breath or cough. Low concern for pneumonia. Monitor. - Shoulder XR: Degenerative change at the left shoulder including severe acromioclavicular osteoarthritis. No acute osseous abnormality. - Humerus XR: No acute osseous finding in the humerus. Possible glenoid lytic lesion. - Shoulder CT: Significant degenerative osteoarthritic disease, without lytic or blastic lesions identified. - Knee XR: Vertical lucency within the distal femur versus the inferior patella for which dedicated plain film evaluation of the patella is recommended versus cross-sectional imaging. Significant degenerative disease is also identified.Moderate suprapatellar joint effusion. - Knee CT: Moderate-sized right knee joint effusion with increased attenuation which given history of trauma would be most consistent with a hemarthrosis likely related to soft tissue injury with no evident fracture or other acute osseous abnormality. Differential would include septic arthritis in the appropriate clinical setting and could consider arthrocentesis if there is clinical concern. 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 See plan below for hemarthrosis - PT/OT recommending SNF, care coordination working on placement (2) Hemarthrosis of knee, right: Code(s): M25.061 - Hemarthrosis, right knee Status: Acute Assessment and Plan: - Knee XR: Vertical lucency within the distal femur versus the inferior patella for which dedicated plain film evaluation of the patella is recommended versus cross-sectional imaging. Significant degenerative disease is also identified.Moderate suprapatellar joint effusion. - Knee CT: Moderate-sized right knee joint effusion with increased attenuation which given history of trauma would be most consistent with a hemarthrosis likely related to soft tissue injury with no evident fracture or other acute osseous abnormality. Differential would include septic arthritis in the appropriate clinical setting and could consider arthrocentesis if there is clinical concern. 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 - analgesics - ezequiel wrap for compression - elevate the limb - PT/OT recommending SNF placement Continue patients Plavix and eliquis. Continue to closely monitor. Pain and swelling continues to slightly improve, working well with therapy. Repeat XR to reassess joint effusion continues to show moderate joint effusion Ortho consulted to evaluate for need of drain (3) Congestive heart failure: Code(s): I50.9 - Heart failure, unspecified Status: Acute Assessment and Plan: Chronic. Does not appear in acute exacerbation, patient appears euvolemic CXR showed Mild pulmonary edema. Superimposed infection cannot be excluded. Repeat CXR 12/08 showed improving interstial edema. - lasix 20 mg PO daily - metoprolol 100 mg BID - Entresto BID - spironolactone 12.5 mg daily resumed - Echo showed LVEF 60-65% with severe aortic stenosis and severe aortic regurgitation per patient history of aortic valve replacement (4) T2DM (type 2 diabetes mellitus): Code(s): E11.9 - Type 2 diabetes mellitus without complications Status: Acute Assessment and Plan: - hypoglycemia protocol - POC blood glucose ACHS - home medication - tresiba 22 units daily, ozempic 2 mg weekly - correct regimen ordered - lantus 22 units daily and SSI - A1C 6.9 03/21/24 Glucose well controlled. Continue to monitor. (5) Coronary artery disease: Code(s): I25.10 - Atherosclerotic heart disease of [place] coronary artery without angina pectoris Status: Acute Assessment and Plan: Chronic s/p 3 stents placed in 2022 Continue plavix and atorvastatin (6) Atrial fibrillation: Code(s): I48.91 - Unspecified atrial fibrillation Status: Acute Assessment and Plan: Chronic, continue home medications Currently in sinus rhythm - metoprolol 100 mg BID - eliquis 5 mg BID Discussed with patient the risk of bleeds on eliquis and plavix. She stated understanding but wishes to continue treatment given afib and recent DVT in September 2024. Time Spent With Patient Time with patient: 25 - 35 minutes Subjective Date/time seen: 12/12/24 09:20 Interval history: 84 year old female with past medical history of diabetes, CHF, CAD s/p stent placement in 2022, hx of DVT to right groin s/p thrombectomy September 2024, aortic valve replacement, and atrial fibrillation presents to the hospital for with weakness and right knee pain following a fall. Patient is pleasant sitting up comfortably in her chair. She continues to endorse a slight tinge of pain to her right knee but denies any associated tingling/numbness. She has no other complaints denying chest pain, shortness a breath, palpitations, nausea/vomiting and abdominal pain. She continues to work well with therapy however per care coordination no her assisted living will not accept her back at this time and wished for SNF placement. Care coordination continues to follow. Review of Systems Review of Systems: All systems reviewed & are unremarkable except as noted in HPI and below Exam Narrative: AF HR 86 RR 15 Spo2 97 BP 109/47 General: female in no acute respiratory distress who is nontoxic appearing, sitting up in bed. HEENT: Extraocular movement intact without associated pain. Sclera clear and anicteric. No facial asymmetry. Swelling and bruising to the left eye extending to the jaw. PERRLA. EOM intact without associated pain. Left eye remains open throughout exam. Chest: Lungs are diminished to auscultation bilaterally. No wheezes or crackles. CV: Heart was regular rate and rhythm. Abd: Abdomen was soft. Nontender. Nondistended. Positive bowel sounds. Ext: No clubbing, cyanosis, or edema. DP pulses bilaterally. AROM intact to RLE but slow and small movements. Ezequiel wrap in place to right knee. Neuro: Patient is alert and oriented x3. Speech is clear. Objective Data Vital Signs Vital Signs: Vital Signs - 24 hr 12/11/24 14:00 12/11/24 16:14 12/11/24 20:00 Temperature 97.4 F L Pulse Rate 75 75 Respiratory Rate 16 Blood Pressure 118/82 Pulse Oximetry 97 Oxygen Delivery Room Air Fraction of Inspired Oxygen 21 12/11/24 20:49 12/12/24 05:37 12/12/24 08:24 Temperature 97.6 F 97.6 F Pulse Rate 73 79 72 Respiratory Rate 20 20 Blood Pressure 135/54 L 151/67 H Pulse Oximetry 96 99 Oxygen Delivery Fraction of Inspired Oxygen 12/12/24 08:27 Temperature Pulse Rate 72 Respiratory Rate Blood Pressure 131/52 L Pulse Oximetry 100 Oxygen Delivery Fraction of Inspired Oxygen Intake/Output Intake/Output: Intake & Output 12/09/24 12/10/24 12/11/24 07/29/25 23:59 23:59 23:59 23:59 Intake Total 1400 950 930 Output Total 797 474 9662 750 Balance 725 0 -70 -750 Meds/Results Medications: Active Medications Generic Name Dose Route Start Last Admin Trade Name Freq PRN Reason Stop Dose Admin Acetaminophen 650 mg 12/07/24 18:30 12/12/24 05:06 Acetaminophen 325 Mg Tablet PO 650 mg Q6HR JAIME Administration Albuterol 2 puff 12/08/24 23:53 12/09/24 00:02 Albuterol Sulfate (*Sp) Aerosol 1 Puff INHALATION 2 puff Q6HRT PRN Administration Shortness Of Breath Apixaban 5 mg 12/09/24 17:00 12/12/24 08:22 Apixaban 5 Mg Tablet PO 5 mg BID JAIME Administration Atorvastatin Calcium 80 mg 12/09/24 21:00 12/11/24 20:24 Atorvastatin 40 Mg Tablet PO 80 mg HS JAIME Administration Clopidogrel Bisulfate 75 mg 12/10/24 09:00 12/12/24 08:22 Clopidogrel Bisulfate 75 Mg Tablet PO 75 mg DAILY JAIME Administration Dextrose 12.5 gm 12/07/24 22:39 Dextrose 50% 25 Gm/50 Ml Syringe IV PUSH PRN PRN Hypoglycemia Protocol Docusate Sodium 100 mg 12/08/24 09:00 12/12/24 08:22 Docusate Sodium 100 Mg Capsule PO 100 mg Q12HR JAIME Administration Erythromycin 1 applic 12/07/24 21:00 12/12/24 08:23 Erythromycin Ophth Ointment 1 Gm Tube LEFT EYE 1 applic Q4HWA JAIME Administration Furosemide 20 mg 12/09/24 09:00 12/12/24 08:22 Furosemide 20 Mg Tablet PO 20 mg DAILY JAIME Administration Glucagon 1 mg 12/07/24 22:39 Glucagon For Inj 1 Mg Vial IM PRN PRN Hypoglycemia Protocol Glucose 15 gm 12/07/24 22:39 Glucose Oral Gel 15 Gm Of Glucse In 37.5 Gm Tube PO PRN PRN Hypoglycemia Protocol Dextrose 1,000 mls @ 100 mls/hr 12/07/24 22:39 Dextrose 5% 1,000 Ml IVPB PRN PRN Hypoglycemia Protocol Insulin Aspart 2 - 5 units 12/08/24 08:00 12/12/24 08:36 Insulin Aspart (*Bkc) 100 Units/Ml SUB-Q Not Given TID[facility] Protocol Insulin Glargine 22 units 12/08/24 21:00 12/11/24 20:26 Insulin Glargine (*Bkc) 100 Units/Ml 0.25 units/kg (22 units) 22 units SUB-Q Administration HS JAIME Lidocaine 1 patch 12/10/24 21:00 12/11/24 20:24 Lidocaine 5% Patch TRANSDERM 1 patch HS JAIME Administration Melatonin 5 mg 12/12/24 00:36 12/12/24 00:49 Melatonin 5 Mg Tablet PO 5 mg HS PRN Administration Insomnia Methocarbamol 500 mg 12/07/24 21:00 12/12/24 08:23 Methocarbamol 500 Mg Tablet PO 500 mg QID JAIME Administration Metoprolol Succinate 100 mg 12/08/24 10:30 12/12/24 08:24 Metoprolol Succinate Ext Rel 100 Mg Tabcr PO 100 mg BID JAIME Administration Morphine Sulfate 2 mg 12/07/24 20:58 Morphine Sulfate (*Crx) 2 Mg/Ml Inj IV PUSH Q4H PRN Breakthrough Pain Oxybutynin Chloride 30 mg 12/09/24 21:00 12/11/24 20:25 Oxybutynin Chloride Xl 5 Mg Tab.Er.24 PO 30 mg HS JAIME Administration Oxycodone HCl 5 mg 12/07/24 18:29 12/09/24 08:58 Oxycodone Hcl (*Crx) 5 Mg Tab Ir PO 5 mg Q4H PRN Administration Pain Rated 4-6 Oxycodone HCl 10 mg 12/07/24 18:29 12/09/24 21:52 Oxycodone Hcl (*Crx) 5 Mg Tab Ir PO 10 mg Q4H PRN Administration Pain Rated 7-10 Pantoprazole Sodium 40 mg 12/09/24 09:00 12/12/24 08:22 Pantoprazole 40 Mg Tablet PO 40 mg QAM JAIME Administration Sacubitril/Valsartan 1 tab 12/10/24 17:00 12/12/24 08:22 Sacubitril/Valsartan 24-26 Mg Tablet PO 1 tab BID JAIME Administration Spironolactone 12.5 mg 12/11/24 09:00 12/12/24 08:22 Spironolactone 12.5 Mg Tablet PO 12.5 mg QAM JAIME Administration Venlafaxine HCl 75 mg 12/09/24 21:00 12/11/24 20:26 Venlafaxine Hcl Xr 75 Mg Cap.Er.24h PO 75 mg HS JAIME Administration Radiology Results: ITS Impressions Knee CT 12/07/24 17:15 IMPRESSION: 1. Moderate-sized right knee joint effusion with increased attenuation which given history of trauma would be most consistent with a hemarthrosis likely related to soft tissue injury with no evident fracture or other acute osseous abnormality. Differential would include septic arthritis in the appropriate clinical setting and could consider arthrocentesis if there is clinical concern. 2. 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 Shoulder X-Ray 12/07/24 21:17 IMPRESSION: 1. Degenerative change at the left shoulder including severe acromioclavicular osteoarthritis. No acute osseous abnormality. 2. Cardiomegaly with likely unchanged mild pulmonary edema in the left lower and right mid and lower lung zones with differential including pneumonia. Chest X-Ray 12/08/24 06:12 Impression: 1: Improving interstitial edema. 2: Stable cardiomegaly. Venous Doppler Study 12/08/24 15:29 IMPRESSION: 1. No deep venous thrombosis. Humerus X-Ray 12/10/24 14:29 IMPRESSION: No acute osseous finding in the humerus. Possible glenoid lytic lesion. Recommend CT of left shoulder for further evaluation. Shoulder CT 12/11/24 11:13 IMPRESSION: Significant degenerative osteoarthritic disease, without lytic or blastic lesions identified. Knee X-Ray 12/11/24 16:32 Impression: 1: Severe tricompartment osteoarthritis. 2: Moderate joint effusion. Labs Labs: Laboratory Results - last 24 hr 12/11/24 12/11/24 12/11/24 11:48 16:41 20:17 WBC RBC Hgb Hct MCV MCH MCHC RDW Plt Count MPV Sodium Potassium Chloride Carbon Dioxide Anion Gap BUN Creatinine Estim Creat Clear Calc Estimated GFR Glucose POC Capillary Glucose 150 H 98 237 H Calcium Total Bilirubin AST ALT Alkaline Phosphatase Total Protein Albumin 12/12/24 12/12/24 05:11 08:24 WBC 4.6 RBC 4.81 Hgb 14.5 Hct 44.6 MCV 92.7 MCH 30.1 MCHC 32.5 RDW 14.6 H Plt Count 168 MPV 9.3 Sodium 140 Potassium 4.2 Chloride 104 Carbon Dioxide 32 H Anion Gap 4 BUN 17 Creatinine 0.98 Estim Creat Clear Calc Not Reportable Estimated GFR 54 L Glucose 76 POC Capillary Glucose 75 Calcium 9.5 Total Bilirubin 0.8 AST 32 ALT 16 Alkaline Phosphatase 69 Total Protein 6.5 Albumin 3.4 L Quality VTE Prophylaxis VTE prophylaxis: mechanical ordered and pharmacologic ordered
[2024-12-12 14:00] VITALS: BP 109/47; PULSE 86; RESP 15; TEMP 37; O2SAT 97
--- NOTE | 2024-12-12 14:00 | PC.NURSE ---
On 12/12/24, the RN, Annabel, provided care and completed [employer] documentation on this patient. I have reviewed the RN's documentation and agree with the findings.
[2024-12-12 16:30] VITALS: PULSE 68
[2024-12-12 19:36] VITALS: BP 113/74; PULSE 70; RESP 17; TEMP 36.9; O2SAT 95
[2024-12-12] MEDS: INSULIN GLARGINE (*BKC) 100 UNITS/ML 22 UNITS SUB-Q (20:09)
[2024-12-12] MEDS: ATORVASTATIN 40 MG TABLET 80 MG PO (20:10)
[2024-12-12] MEDS: oxyBUTYnin CHLORIDE XL 5 MG TAB.ER.24 30 MG PO (20:10)
[2024-12-12] MEDS: LIDOCAINE 5% PATCH 1 PATCH TRANSDERM (20:11)
[2024-12-12] MEDS: VENLAFAXINE HCL XR 75 MG CAP.ER.24H PO (20:11)
[2024-12-13 04:38] VITALS: BP 105/90; PULSE 88; RESP 20; TEMP 36.4; O2SAT 98
[2024-12-13 05:09] LABS: Hematocrit 44.0 % (37.0-47.0); Hemoglobin 14.1 g/dL (12.0-15.0); Mean Corpuscular HGB Conc 32.0 g/dl (32-36); Mean Corpuscular Hemoglobin 29.8 pg (26-34); Mean Corpuscular Volume 93.0 fl (80-100); Platelet Count Result 175 k/mm3 (150-375); Red Blood Count 4.73 M/mm3 (4.2-5.4); White Blood Count 4.9 K/mm3 (4.5-10.0)
[2024-12-13 05:35] LABS: Alanine Aminotransferase 17 U/L (6-35); Albumin Level 3.4 g/dL (3.5-5.1); Alkaline Phosphatase 68 U/L (38-126); Anion Gap 4 mmol/L (4-12); Aspartate Amino Transferase 31 U/L (14-36); Bilirubin,Total 0.6 mg/dL (0.2-1.3); Blood Urea Nitrogen 20 mg/dL (7-17); Calcium 9.3 mg/dL (8.4-10.2); Carbon Dioxide 30 mmol/L (22-30); Chloride 101 mmol/L (98-107); Estimated Glomerular Filt Rate 52; Glucose 103 mg/dL (65-110); Potassium 3.6 mmol/L (3.4-5.0); Sodium 135 mmol/L (137-145); Total Protein 6.3 g/dL (6.3-8.2)
[2024-12-13] MEDS: ERYTHROMYCIN OPHTH OINTMENT 1 GM TUBE 1 APPLIC LEFT EYE ×3 (05:57→12:17)
[2024-12-13] MEDS: ACETAMINOPHEN 325 MG TABLET 650 MG PO ×2 (05:57→12:16)
--- NOTE | 2024-12-13 07:15 | PM.IMPN ---
Progress Note: A&P Assessment and Plan (1) Fall: Code(s): W19.XXXA - Unspecified fall, initial encounter Status: Acute Assessment and Plan: Mechanical ground level fall from patient tripping over her croc. Denies any dizziness/lightheadedness prior to fall. - Head CTL No acute intracranial abnormality but a left periorbital soft tissue hematoma noted - C spine CT: no acute fracture and severe cervical spondylosis - Chest XR: Mild pulmonary edema. Superimposed infection cannot be excluded. Repeat CXR 12/08 showed improving interstitial edema. WBC WNL and afebrile. Denies shortness of breath or cough. Low concern for pneumonia. Monitor. - Shoulder XR: Degenerative change at the left shoulder including severe acromioclavicular osteoarthritis. No acute osseous abnormality. - Humerus XR: No acute osseous finding in the humerus. Possible glenoid lytic lesion. - Shoulder CT: Significant degenerative osteoarthritic disease, without lytic or blastic lesions identified. - Knee XR: Vertical lucency within the distal femur versus the inferior patella for which dedicated plain film evaluation of the patella is recommended versus cross-sectional imaging. Significant degenerative disease is also identified.Moderate suprapatellar joint effusion. - Knee CT: Moderate-sized right knee joint effusion with increased attenuation which given history of trauma would be most consistent with a hemarthrosis likely related to soft tissue injury with no evident fracture or other acute osseous abnormality. Differential would include septic arthritis in the appropriate clinical setting and could consider arthrocentesis if there is clinical concern. 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 See plan below for hemarthrosis - PT/OT recommending SNF, care coordination working on placement (2) Hemarthrosis of knee, right: Code(s): M25.061 - Hemarthrosis, right knee Status: Acute Assessment and Plan: - Knee XR: Vertical lucency within the distal femur versus the inferior patella for which dedicated plain film evaluation of the patella is recommended versus cross-sectional imaging. Significant degenerative disease is also identified.Moderate suprapatellar joint effusion. - Knee CT: Moderate-sized right knee joint effusion with increased attenuation which given history of trauma would be most consistent with a hemarthrosis likely related to soft tissue injury with no evident fracture or other acute osseous abnormality. Differential would include septic arthritis in the appropriate clinical setting and could consider arthrocentesis if there is clinical concern. 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 - analgesics - ezequiel wrap for compression - elevate the limb - PT/OT recommending SNF placement Continue patients Plavix and eliquis. Continue to closely monitor. Pain and swelling continues to slightly improve, working well with therapy. Repeat XR to reassess joint effusion continues to show moderate joint effusion Ortho consulted to evaluate for need of drain (3) Congestive heart failure: Code(s): I50.9 - Heart failure, unspecified Status: Acute Assessment and Plan: Chronic. Does not appear in acute exacerbation, patient appears euvolemic CXR showed Mild pulmonary edema. Superimposed infection cannot be excluded. Repeat CXR 12/08 showed improving interstial edema. - lasix 20 mg PO daily - metoprolol 100 mg BID - Entresto BID - spironolactone 12.5 mg daily resumed - Echo showed LVEF 60-65% with severe aortic stenosis and severe aortic regurgitation per patient history of aortic valve replacement (4) T2DM (type 2 diabetes mellitus): Code(s): E11.9 - Type 2 diabetes mellitus without complications Status: Acute Assessment and Plan: - hypoglycemia protocol - POC blood glucose ACHS - home medication - tresiba 22 units daily, ozempic 2 mg weekly - correct regimen ordered - lantus 22 units daily and SSI - A1C 6.9 03/21/24 Glucose well controlled. Continue to monitor. (5) Coronary artery disease: Code(s): I25.10 - Atherosclerotic heart disease of [place] coronary artery without angina pectoris Status: Acute Assessment and Plan: Chronic s/p 3 stents placed in 2022 Continue plavix and atorvastatin (6) Atrial fibrillation: Code(s): I48.91 - Unspecified atrial fibrillation Status: Acute Assessment and Plan: Chronic, continue home medications Currently in sinus rhythm - metoprolol 100 mg BID - eliquis 5 mg BID Discussed with patient the risk of bleeds on eliquis and plavix. She stated understanding but wishes to continue treatment given afib and recent DVT in September 2024. Subjective Date/time seen: 12/13/24 07:15 Interval history: 84 year old female with past medical history of diabetes, CHF, CAD s/p stent placement in 2022, hx of DVT to right groin s/p thrombectomy September 2024, aortic valve replacement, and atrial fibrillation presents to the hospital for with weakness and right knee pain following a fall. 12/13/2024 Review of Systems Review of Systems: 12 systems were reviewed and are negative except for as per HPI. All systems reviewed & are unremarkable except as noted in HPI and below Exam Narrative: General: female in no acute respiratory distress who is nontoxic appearing, sitting up in bed. HEENT: Extraocular movement intact without associated pain. Sclera clear and anicteric. No facial asymmetry. Swelling and bruising to the left eye extending to the jaw. PERRLA. EOM intact without associated pain. Left eye remains open throughout exam. Chest: Lungs are diminished to auscultation bilaterally. No wheezes or crackles. CV: Heart was regular rate and rhythm. Abd: Abdomen was soft. Nontender. Nondistended. Positive bowel sounds. Ext: No clubbing, cyanosis, or edema. DP pulses bilaterally. AROM intact to RLE but slow and small movements. Ezequiel wrap in place to right knee. Neuro: Patient is alert and oriented x3. Speech is clear. Objective Data Vital Signs Vital Signs: Vital Signs - 24 hr 12/12/24 08:23 12/12/24 08:24 12/12/24 08:27 Temperature Pulse Rate 72 72 Respiratory Rate Blood Pressure 131/52 L Pulse Oximetry 100 Oxygen Delivery Room Air Fraction of Inspired Oxygen 21 12/12/24 10:14 12/12/24 14:00 12/12/24 16:30 Temperature 98.6 F Pulse Rate 86 68 Respiratory Rate 15 Blood Pressure 109/47 L Pulse Oximetry 97 Oxygen Delivery Room Air Fraction of Inspired Oxygen 12/12/24 19:36 12/12/24 20:00 12/13/24 04:38 Temperature 98.5 F 97.6 F Pulse Rate 70 88 Respiratory Rate 17 20 Blood Pressure 113/74 105/90 Pulse Oximetry 95 98 Oxygen Delivery Room Air Fraction of Inspired Oxygen 21 Intake/Output Intake/Output: Intake & Output 12/10/24 12/11/24 12/12/24 12/13/24 23:59 23:59 23:59 23:59 Intake Total 950 930 240 290 Output Total 950 1000 750 Balance 0 -70 -510 290 Meds/Results Medications: Active Medications Generic Name Dose Route Start Last Admin Trade Name Freq PRN Reason Stop Dose Admin Acetaminophen 650 mg 12/07/24 18:30 12/13/24 05:57 Acetaminophen 325 Mg Tablet PO 650 mg Q6HR JAIME Administration Albuterol 2 puff 12/08/24 23:53 12/09/24 00:02 Albuterol Sulfate (*Sp) Aerosol 1 Puff INHALATION 2 puff Q6HRT PRN Administration Shortness Of Breath Apixaban 5 mg 12/09/24 17:00 12/12/24 16:30 Apixaban 5 Mg Tablet PO 5 mg BID JAIME Administration Atorvastatin Calcium 80 mg 12/09/24 21:00 12/12/24 20:10 Atorvastatin 40 Mg Tablet PO 80 mg HS JAIME Administration Clopidogrel Bisulfate 75 mg 12/10/24 09:00 12/12/24 08:22 Clopidogrel Bisulfate 75 Mg Tablet PO 75 mg DAILY JAIME Administration Dextrose 12.5 gm 12/07/24 22:39 Dextrose 50% 25 Gm/50 Ml Syringe IV PUSH PRN PRN Hypoglycemia Protocol Docusate Sodium 100 mg 12/08/24 09:00 12/12/24 20:10 Docusate Sodium 100 Mg Capsule PO 100 mg Q12HR JAIME Administration Erythromycin 1 applic 12/07/24 21:00 12/13/24 05:57 Erythromycin Ophth Ointment 1 Gm Tube LEFT EYE 1 applic Q4HWA JAIME Administration Furosemide 20 mg 12/09/24 09:00 12/12/24 08:22 Furosemide 20 Mg Tablet PO 20 mg DAILY JAIME Administration Glucagon 1 mg 12/07/24 22:39 Glucagon For Inj 1 Mg Vial IM PRN PRN Hypoglycemia Protocol Glucose 15 gm 12/07/24 22:39 Glucose Oral Gel 15 Gm Of Glucse In 37.5 Gm Tube PO PRN PRN Hypoglycemia Protocol Dextrose 1,000 mls @ 100 mls/hr 12/07/24 22:39 Dextrose 5% 1,000 Ml IVPB PRN PRN Hypoglycemia Protocol Insulin Aspart 2 - 5 units 12/08/24 08:00 12/12/24 17:04 Insulin Aspart (*Bkc) 100 Units/Ml SUB-Q Not Given [facility] Protocol Insulin Glargine 22 units 12/08/24 21:00 12/12/24 20:09 Insulin Glargine (*Bkc) 100 Units/Ml 0.25 units/kg (22 units) 22 units SUB-Q Administration HS JAIME Lidocaine 1 patch 12/10/24 21:00 12/12/24 20:11 Lidocaine 5% Patch TRANSDERM 1 patch HS JAIME Administration Melatonin 5 mg 12/12/24 00:36 12/12/24 20:10 Melatonin 5 Mg Tablet PO 5 mg HS PRN Administration Insomnia Methocarbamol 500 mg 12/07/24 21:00 12/12/24 20:10 Methocarbamol 500 Mg Tablet PO 500 mg QID JAIME Administration Metoprolol Succinate 100 mg 12/08/24 10:30 12/12/24 16:30 Metoprolol Succinate Ext Rel 100 Mg Tabcr PO 100 mg BID JAIME Administration Morphine Sulfate 2 mg 12/07/24 20:58 Morphine Sulfate (*Crx) 2 Mg/Ml Inj IV PUSH Q4H PRN Breakthrough Pain Oxybutynin Chloride 30 mg 12/09/24 21:00 12/12/24 20:10 Oxybutynin Chloride Xl 5 Mg Tab.Er.24 PO 30 mg HS JAIME Administration Oxycodone HCl 5 mg 12/07/24 18:29 12/09/24 08:58 Oxycodone Hcl (*Crx) 5 Mg Tab Ir PO 5 mg Q4H PRN Administration Pain Rated 4-6 Oxycodone HCl 10 mg 12/07/24 18:29 12/09/24 21:52 Oxycodone Hcl (*Crx) 5 Mg Tab Ir PO 10 mg Q4H PRN Administration Pain Rated 7-10 Pantoprazole Sodium 40 mg 12/09/24 09:00 12/12/24 08:22 Pantoprazole 40 Mg Tablet PO 40 mg QAM JAIME Administration Sacubitril/Valsartan 1 tab 12/10/24 17:00 12/12/24 16:31 Sacubitril/Valsartan 24-26 Mg Tablet PO 1 tab BID JAIME Administration Spironolactone 12.5 mg 12/11/24 09:00 12/12/24 08:22 Spironolactone 12.5 Mg Tablet PO 12.5 mg QAM JAIME Administration Venlafaxine HCl 75 mg 12/09/24 21:00 12/12/24 20:11 Venlafaxine Hcl Xr 75 Mg Cap.Er.24h PO 75 mg HS JAIME Administration Radiology Results: ITS Impressions Knee CT 12/07/24 17:15 IMPRESSION: 1. Moderate-sized right knee joint effusion with increased attenuation which given history of trauma would be most consistent with a hemarthrosis likely related to soft tissue injury with no evident fracture or other acute osseous abnormality. Differential would include septic arthritis in the appropriate clinical setting and could consider arthrocentesis if there is clinical concern. 2. 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 Shoulder X-Ray 12/07/24 21:17 IMPRESSION: 1. Degenerative change at the left shoulder including severe acromioclavicular osteoarthritis. No acute osseous abnormality. 2. Cardiomegaly with likely unchanged mild pulmonary edema in the left lower and right mid and lower lung zones with differential including pneumonia. Chest X-Ray 12/08/24 06:12 Impression: 1: Improving interstitial edema. 2: Stable cardiomegaly. Venous Doppler Study 12/08/24 15:29 IMPRESSION: 1. No deep venous thrombosis. Humerus X-Ray 12/10/24 14:29 IMPRESSION: No acute osseous finding in the humerus. Possible glenoid lytic lesion. Recommend CT of left shoulder for further evaluation. Shoulder CT 12/11/24 11:13 IMPRESSION: Significant degenerative osteoarthritic disease, without lytic or blastic lesions identified. Knee X-Ray 12/11/24 16:32 Impression: 1: Severe tricompartment osteoarthritis. 2: Moderate joint effusion. Labs Labs: Laboratory Results - last 24 hr 12/12/24 12/12/24 12/12/24 08:24 11:40 17:00 WBC RBC Hgb Hct MCV MCH MCHC RDW Plt Count MPV Sodium Potassium Chloride Carbon Dioxide Anion Gap BUN Creatinine Estim Creat Clear Calc Estimated GFR Glucose POC Capillary Glucose 75 153 H 162 H Calcium Total Bilirubin AST ALT Alkaline Phosphatase Total Protein Albumin 12/12/24 12/13/24 19:42 04:35 WBC 4.9 RBC 4.73 Hgb 14.1 Hct 44.0 MCV 93.0 MCH 29.8 MCHC 32.0 RDW 14.5 Plt Count 175 MPV 9.7 Sodium 135 L Potassium 3.6 Chloride 101 Carbon Dioxide 30 Anion Gap 4 BUN 20 H Creatinine 1.01 H Estim Creat Clear Calc Not Reportable Estimated GFR 52 L Glucose 103 POC Capillary Glucose 179 H Calcium 9.3 Total Bilirubin 0.6 AST 31 ALT 17 Alkaline Phosphatase 68 Total Protein 6.3 Albumin 3.4 L Quality VTE Prophylaxis VTE prophylaxis: mechanical ordered and pharmacologic ordered
[2024-12-13 08:21] VITALS: BP 140/69; PULSE 106
[2024-12-13] MEDS: CLOPIDOGREL BISULFATE 75 MG TABLET PO (08:25)
[2024-12-13] MEDS: FUROSEMIDE 20 MG TABLET PO (08:25)
[2024-12-13] MEDS: DOCUSATE SODIUM 100 MG CAPSULE PO (08:25)
[2024-12-13] MEDS: APIXABAN 5 MG TABLET PO (08:25)
[2024-12-13 08:26] VITALS: PULSE 106
[2024-12-13] MEDS: METOPROLOL SUCCINATE EXT REL 100 MG TABCR PO (08:26)
[2024-12-13] MEDS: SACUBITRIL/VALSARTAN 24-26 MG TABLET 1 TAB PO (08:26)
[2024-12-13] MEDS: PANTOPRAZOLE 40 MG TABLET PO (08:26)
--- NOTE | 2024-12-13 09:24 | P.CONOP_ITS ---
Assessment and Plan Assessment and plan (1) Hemarthrosis of knee, right: Code(s): M25.061 - Hemarthrosis, right knee Status: Acute Plan The patient is a 84-year-old female who was admitted with right knee pain after a fall at assisted living. She was seen in the emergency room and she was diagnosed with a right knee hemarthrosis and trauma with no evidence of fracture. CT scan as well as x-rays. She does have some facial trauma to the left supraorbital area also. She reports pain nowhere else except for a minimal to moderate amount of pain into the right knee. She has been anticoagulated prior to the fall. Therefore, the hemarthrosis is as expected. She reports that she's able to ambulate at this point without much difficulty with regards to her right knee. The patient has a right knee hemarthrosis that is resolving. I would recommend weight bearing is tolerated and she can follow up with my office in about two weeks. [phone] History of Present Illness HPI Consult date: 12/13/24 Chief complaint: Right knee hemarthrosis Narrative: The patient is a 84-year-old female who was admitted with right knee pain after a fall at assisted living. She was seen in the emergency room and she was diagnosed with a right knee hemarthrosis and trauma with no evidence of fracture. CT scan as well as x-rays. She does have some facial trauma to the left supraorbital area also. She reports pain nowhere else except for a minimal to moderate amount of pain into the right knee. She has been anticoagulated prior to the fall. Therefore, the hemarthrosis is as expected. She reports that she's able to ambulate at this point without much difficulty with regards to her right knee. [facility] Past Medical History Medical History (Updated 12/09/24 @ 13:52 by Minnie Navarrete PA-C) Atrial fibrillation Coronary artery disease Deep vein thrombosis September 2024 Insulin dependent type 2 diabetes mellitus Surgical History Surgical History (Updated 12/09/24 @ 13:51 by Minnie Navarrete PA-C) History of thrombectomy right groin DVT in September 2024 Aortic valve replaced Coronary artery disease status post coronary stent insertion 3 stents placed in 2022 Family History Family History (Updated 12/08/24 @ 04:13 by Stephie Ngo RN) Father Diabetes mellitus Other Heart disease Social History Social History Smoking status: Never smoker Alcohol intake: never Substance use: never Do You Feel Safe in your Home?: Yes Lack of Transportation: No Lack of Food: Never True Current Housing: I Have Housing Concerned About Future Housing: No Difficulty Paying Gas/Electric Bills: No Difficulty Paying for Meds: No Currently Unemployed: No Education: High School Diploma/GED Difficulty w/ Childcare or Family Care: No Living arrangements: assisted living Additional living arrangements comments: [facility] Spiritual care concerns: No Meds Home Medications and Allergies Home Medications ?Medication ?Instructions ?Recorded ?Confirmed ?Type atorvastatin 80 mg tablet 80 mg PO HS 03/20/24 12/08/24 History clopidogrel 75 mg tablet 75 mg PO DAILY 03/20/24 12/08/24 History furosemide 20 mg tablet 20 mg PO DAILY 03/20/24 12/08/24 History insulin degludec 200 unit/mL (3 22 unit subcut DAILY 03/20/24 12/08/24 History mL) subcutaneous pen metoprolol succinate 100 mg 100 mg PO BID 03/20/24 12/08/24 History tablet,extended release 24 hr multivitamin with minerals 2 tablet PO DAILY 03/20/24 12/08/24 History (Hair,Skin and Nails tablet) albuterol 90 mcg/actuation aerosol See Rx Instructions inhalation .Q4 12/08/24 12/08/24 History inhaler PRN wheezing amoxicillin 500 mg capsule 500 mg .Route .COMPLEX 12/08/24 12/08/24 History apixaban 5 mg tablet (Eliquis) 5 mg PO BID 12/08/24 12/08/24 History insulin degludec 200 unit/mL (3 22 unit subcut DAILY 12/08/24 12/08/24 History mL) subcutaneous pen (Tresiba FlexTouch U-200 insulin) oxybutynin ER 30 mg PO HS 12/08/24 12/08/24 History pantoprazole 40 mg tablet,delayed 40 mg PO QAM 12/08/24 12/08/24 History release sacubitril 24 mg-valsartan 26 mg 1 tablet PO BID 12/08/24 12/08/24 History tablet (Entresto) semaglutide 2 mg/dose (8 mg/3 mL) 2 mg subcut WEEKLY 12/08/24 12/08/24 History subcutaneous pen injector (Ozempic) spironolactone 25 mg tablet 12.5 mg PO QAM 12/08/24 12/08/24 History tramadol 50 mg tablet 50 mg PO ONCE PRN pain 12/08/24 12/08/24 History venlafaxine 75 mg capsule,extended 75 mg PO HS 12/08/24 12/08/24 History release 24 hr (Effexor XR) Allergies Allergy/AdvReac Type Severity Reaction Status Date / Time No Known Allergies Allergy Verified 12/06/24 08:59 Vital Signs Vital Signs - 24 hr 12/12/24 10:14 12/12/24 14:00 12/12/24 16:30 Temperature 37.0 C Pulse Rate 86 68 Respiratory Rate 15 Blood Pressure 109/47 L Pulse Oximetry 97 Oxygen Delivery Room Air Fraction of Inspired Oxygen 12/12/24 19:36 12/12/24 20:00 12/13/24 04:38 Temperature 36.9 C 36.4 C Pulse Rate 70 88 Respiratory Rate 17 20 Blood Pressure 113/74 105/90 Pulse Oximetry 95 98 Oxygen Delivery Room Air Fraction of Inspired Oxygen 21 12/13/24 08:21 12/13/24 08:26 Temperature Pulse Rate 106 H 106 H Respiratory Rate Blood Pressure 140/69 Pulse Oximetry Oxygen Delivery Fraction of Inspired Oxygen Exam 2 Narrative: Examination of the patient's right knee, she has a moderate diffusion, no tenderness medially or laterally. She lacks about 5 degrees of full extension, and I can flex her to 90 degrees with no pain. She's stable to varus and valgus stress testing, and has no tenderness over the patella. No sign of infection, no warmth, no erythema. Results Labs 12/13/24 04:35 12/13/24 04:35 Labs: Abnormal lab results 12/12/24 12/12/24 12/12/24 Range/Units 11:40 17:00 19:42 Sodium (137-145) mmol/L BUN (7-17) mg/dL Creatinine (0.7-1.0) mg/dL Estimated GFR (59 - ) POC Capillary Glucose 153 H 162 H 179 H (65-105) mg/dl Albumin (3.5-5.1) g/dL 12/13/24 Range/Units 04:35 Sodium 135 L (137-145) mmol/L BUN 20 H (7-17) mg/dL Creatinine 1.01 H (0.7-1.0) mg/dL Estimated GFR 52 L (59 - ) POC Capillary Glucose (65-105) mg/dl Albumin 3.4 L (3.5-5.1) g/dL H & H 12/08/24 12/09/24 12/10/24 Range/Units 05:07 08:15 05:20 Hgb 13.7 14.0 13.7 (12.0-15.0) g/dL Hct 42.0 44.2 42.5 (37.0-47.0) % 12/11/24 12/12/24 12/13/24 Range/Units 05:03 05:11 04:35 Hgb 14.0 14.5 14.1 (12.0-15.0) g/dL Hct 44.2 44.6 44.0 (37.0-47.0) % All other labs normal.
[2024-12-13 13:53] VITALS: BP 118/53; PULSE 69; RESP 14; TEMP 36.7; O2SAT 91
--- NOTE | 2024-12-13 13:54 | P.DS_ITS ---
DS: Admitting Diagnosis Discharge Date 12/13/2024 <Morteza Pollack PA-C - Last Filed: 12/13/24 15:00> Admitting Diagnosis Fall & Right Knee Hemarthrosis <Mateo Thompson - Last Filed: 12/13/24 14:54> DS: Discharge Diagnosis Discharge Diagnosis (1) Fall: Code(s): W19.XXXA - Unspecified fall, initial encounter <Morteza Pollack PA-C - Last Filed: 12/13/24 15:00> Status: Acute <JOVANI RiosC - Last Filed: 12/13/24 15:00> (2) Hemarthrosis of knee, right: Code(s): M25.061 - Hemarthrosis, right knee <Morteza Pollack PA-C - Last Filed: 12/13/24 15:00> Status: Acute <Morteza Pollack PA-C - Last Filed: 12/13/24 15:00> (3) Congestive heart failure: Code(s): I50.9 - Heart failure, unspecified <Morteza Pollack PA-C - Last Filed: 12/13/24 15:00> Status: Acute <JOVANI RiosC - Last Filed: 12/13/24 15:00> (4) T2DM (type 2 diabetes mellitus): Code(s): E11.9 - Type 2 diabetes mellitus without complications <Morteza Pollack PA-C - Last Filed: 12/13/24 15:00> Status: Acute <JOVANI RiosC - Last Filed: 12/13/24 15:00> (5) Coronary artery disease: Code(s): I25.10 - Atherosclerotic heart disease of [place] coronary artery without angina pectoris <Morteza Pollack PA-C - Last Filed: 12/13/24 15:00> Status: Acute <Morteza Pollack PA-C - Last Filed: 12/13/24 15:00> (6) Atrial fibrillation: Code(s): I48.91 - Unspecified atrial fibrillation <Morteza Pollack PA-C - Last Filed: 12/13/24 15:00> Status: Acute <Morteza Pollack PA-C - Last Filed: 12/13/24 15:00> DS: Summary Hospital Course Hospital Course: 84 year old female with history of congestive heart failure, type 2 diabetes mellitus, coronary artery disease, and atrial fibrillation presented to the ED on 12/07/24 due to right knee pain & head injury following a fall on 12/06/24. Was evaluated on 12/06/34 for the head injury (negative Head & Spine CT) and discharged, but not for her knee. Right knee CT showed hemarthrosis with no evidence of fracture. Labs showed hemoglobin of 15.9, BUN of 27, creatinine of 1.38, GFR 37, calcium at 10.4, & UA negative for infection. Admitted due to inability to care for herself given right knee pain & injury. Chest x-ray was repeated on 12/08 due to pulmonary edema which noted improvement compared to 12/06 imaging. Lower leg ultrasound was conducted on 12/08 due to leg swelling and ruled out a DVT. Shoulder CT was completed on 12/11 indicating osteoarthritis disease, but no acute fractures/abnormalities. Repeat knee X-ray on 12/11 note arthritis & moderate joint effusion. During admission patient worked with PT and OT progressing from non-weight bearing to walking up to 120 feet with wheeled walker. Knee swelling also improved with elevation & ezequiel-wrap compression. Orthopedics was consulted regarding hemarthrosis and recommended conservative treatment and follow up in their office (outpatient) in 2 weeks. # Fall - Head CT, C-spine CT, Shoulder XR, Humerus XR all negative for acute fractures/changes. - Chest XR indicated improved interstitial edema. Patient was afebrile, denied cough, or shortness of breath and had reassuring labs. Low suspicion of infection or pneumonia. - PT/OT recommended [facility] due to not being able to meet [employer] activity requirements. #Right Knee Hemarthrosis - Knee XR & CT indicted hemarthrosis with no evidence of fracture or acute bone abnormalities. Tricompartmental osteoarthritis. - Knee swelling improved with elevation & ezequiel-wrap compression - Orthopedics consulted and recommended to continue conservative treatment and follow-up as outpatient in 2 weeks. <Dex Reid Student - Last Filed: 12/13/24 14:54> Status at Discharge Functional status at discharge: uses cane/walker <Morteza Pollack PA-C - Last Filed: 12/13/24 15:00> Overall status at discharge: patient is progressing back to baseline <Morteza Pollack PA-C - Last Filed: 12/13/24 15:00> Time Spent with Patient Time attestation: Total time spent providing and/or coordinating discharge services: 45 <Morteza Pollack PA-C - Last Filed: 12/13/24 15:00> Exam Narrative: General: female in no acute respiratory distress who is nontoxic appearing, sitting up in bed. HEENT: Extraocular movement intact without associated pain. Sclera clear and anicteric. No facial asymmetry. Swelling and bruising to the left eye extending to the jaw. PERRLA. EOM intact without associated pain. Left eye remains open throughout exam. Chest: Lungs are diminished to auscultation bilaterally. No wheezes or crackles. CV: Heart was regular rate and rhythm. Abd: Abdomen was soft. Nontender. Nondistended. Normal bowel sounds. Ext: No clubbing, cyanosis, or edema. DP pulses bilaterally. AROM intact to RLE but slow and small movements. Neuro: Patient is alert and oriented x3. Speech is clear. <Morteza Pollack PA-C - Last Filed: 12/13/24 15:00> General: female in no acute respiratory distress who is nontoxic appearing, sitting up in bed. HEENT: Extraocular movement intact without associated pain. Sclera clear and anicteric. No facial asymmetry. Swelling and bruising to the left eye extending to the jaw. PERRLA. EOM intact without associated pain. Left eye remains open throughout exam. Chest: Lungs are diminished to auscultation bilaterally. No wheezes or crackles. CV: Heart was regular rate and rhythm. Abd: Abdomen was soft. Nontender. Nondistended. Normal bowel sounds. Ext: No clubbing, cyanosis, or edema. DP pulses bilaterally. AROM intact to RLE but slow and small movements. Ezequiel wrap in place to right knee. Neuro: Patient is alert and oriented x3. Speech is clear. <Dex Reid Student - Last Filed: 12/13/24 14:54> DS: Data Data Completed and Pending Labs on day of discharge: Labs from last 24 hours 12/13/24 12/13/24 12/13/24 12:08 07:56 04:35 WBC 4.9 RBC 4.73 Hgb 14.1 Hct 44.0 MCV 93.0 MCH 29.8 MCHC 32.0 RDW 14.5 Plt Count 175 MPV 9.7 Sodium 135 L Potassium 3.6 Chloride 101 Carbon Dioxide 30 Anion Gap 4 BUN 20 H Creatinine 1.01 H Estim Creat Clear Calc Not Reportable Estimated GFR 52 L Glucose 103 POC Capillary Glucose 140 H 70 Calcium 9.3 Total Bilirubin 0.6 AST 31 ALT 17 Alkaline Phosphatase 68 Total Protein 6.3 Albumin 3.4 L 12/12/24 12/12/24 19:42 17:00 WBC RBC Hgb Hct MCV MCH MCHC RDW Plt Count MPV Sodium Potassium Chloride Carbon Dioxide Anion Gap BUN Creatinine Estim Creat Clear Calc Estimated GFR Glucose POC Capillary Glucose 179 H 162 H Calcium Total Bilirubin AST ALT Alkaline Phosphatase Total Protein Albumin <Morteza Pollack PA-C - Last Filed: 12/13/24 15:00> Discharge Plan Discharge Attending physician on discharge: Arthur Villatoro <Morteza Pollack PA-C - Last Filed: 12/13/24 15:00> Arthur Villatoro <Mateo Thompson - Last Filed: 12/13/24 14:54> Consulting providers: Minnie Navarrete; Jefferson Baxter; Morteza Pollack <Morteza Pollack PA-C - Last Filed: 12/13/24 15:00> Discharging Clinician: Morteza Pollack <Morteza Pollack PA-C - Last Filed: 12/13/24 15:00> Morteza Pollack <Mateo Thompson - Last Filed: 12/13/24 14:54> Anticipated Discharge Date/Time: 12/13/24 13:51 <Morteza Pollack PA-C - Last Filed: 12/13/24 15:00> Patient Disposition: SNF <Morteza Pollack PA-C - Last Filed: 12/13/24 15:00> Activity: as tolerated <Morteza Pollack PA-C - Last Filed: 12/13/24 15:00> as tolerated <Mateo Thompson - Last Filed: 12/13/24 14:54> Diet: heart healthy <Morteza Pollack PA-C - Last Filed: 12/13/24 15:00> heart healthy <Mateo Thompson - Last Filed: 12/13/24 14:54> Discharge Instructions: Discharge disposition: Kandy Lomas Take medications as prescribed Monitor blood pressures Take caution while standing, rising, or moving Change positions slowly taking a break between each position change If you standing feel dizzy sit back down and take a break Encouraged to continue with yearly vaccinations Return to the emergency department if he developed sudden shortness of breath, chest pain, nausea, vomiting, upset stomach or intractable diarrhea Return to the emergency department if you develop fever greater than 101.5 Follow-up with the primary care physician within 1-2 weeks Follow-up with Orthopedics ([phone]) in 2 weeks in regards to your Stephon rthrosis of the right knee. Thank you for choosing [facility] for your healthcare needs <Morteza Pollack PA-C - Last Filed: 12/13/24 15:00> Patient Instructions: Apixaban (By mouth) <Morteza Pollack PA-C - Last Filed: 12/13/24 15:00> Patient Language: Mongolian <Morteza Pollack PA-C - Last Filed: 12/13/24 15:00> Stand Alone Forms: General Discharge Information <Morteza Pollack PA-C - Last Filed: 12/13/24 15:00> Follow-up/Referrals: Annie,Gerri Hernandez APRN [Primary Care Provider] - Jefferson Baxter MD [Physician] - <Morteza Pollack PA-C - Last Filed: 12/13/24 15:00> Discharge Medications: Continued atorvastatin 80 mg Tablet 80 mg PO HS metoprolol succinate 100 mg Tablet Extended Release 24 Hr 100 mg PO BID clopidogrel 75 mg Tablet 75 mg PO DAILY furosemide 20 mg Tablet 20 mg PO DAILY Hair,Skin and Nails Tablet 2 tablet PO DAILY insulin degludec 200 unit/mL (3 mL) Insulin Pen 22 unit SUBCUT DAILY Eliquis 5 mg tablet 5 mg PO BID Entresto 24-26 mg tablet 1 tablet PO BID tramadol 50 mg tablet 50 mg PO ONCE PRN (Reason: pain) Patient Comments: one or two tables Q8H PRN for 6/10 pain oxybutynin ER 15 mg tablet 30 mg PO HS Ozempic 2 mg/dose (8 mg/3 mL) pen injector 2 mg subcut WEEKLY Patient Comments: Wednesday pantoprazole 40 mg tablet,delayed release (DR/EC) 40 mg PO QAM spironolactone 25 mg tablet 12.5 mg PO QAM insulin degludec [Tresiba FlexTouch U-200] 200 unit/mL (3 mL) insulin pen 22 unit subcut DAILY venlafaxine [Effexor XR] 75 mg capsule,extended release 24hr 75 mg PO HS Discontinued albuterol 90 mcg/actuation aerosol See Rx Instructions inhalation .Q4 PRN (Reason: wheezing) Rx Instructions: INHALE TWO PUFFS BY MOUTH Q4H PRN amoxicillin 500 mg capsule 500 mg .ROUTE .COMPLEX Patient Comments: GIVE 2000MG BY MOUTH 1 HOUR PRIOR TO DENTAL PROCEDURE PRN Rx Instructions: 500 mg; <Morteza Pollack PA-C - Last Filed: 12/13/24 15:00> Date of admission: 12/09/24 15:00 <Morteza Pollack PA-C - Last Filed: 12/13/24 15:00> Primary Care Provider: AnnieGerri <Morteza Pollack PA-C - Last Filed: 12/13/24 15:00> Admitting Provider: Arthur Villatoro <Morteza Pollack PA-C - Last Filed: 12/13/24 15:00> Attending physician on admission: Arthur Villatoro <Morteza Pollack PA-C - Last Filed: 12/13/24 15:00> Condition: Stable <Morteza Pollack PA-C - Last Filed: 12/13/24 15:00> Quality VTE Prophylaxis VTE prophylaxis: mechanical ordered and pharmacologic ordered <Morteza Pollack PA-C - Last Filed: 12/13/24 15:00>
[2024-12-13 15:26] LABS: SARS-CoV-2 RNA PCR Negative (Negative)
== END 2024-12-13 17:05 | DRG 554 ==
LOC: ANHED 17:56 → ANH2MED 19:46
PROVIDERS: Nurse Practitioner Gerontology; Student in an Organized Health Care Education/Training Program; Admitting Provider Family Medicine; Emergency Provider Emergency Medicine; Visit Provider Physician Assistant
DX: M25.061 Hemarthrosis, right knee (principal); I48.20 Chronic atrial fibrillation, unspecified; S00.83XA Contusion of other part of head, initial encounter; S80.01XA Contusion of right knee, initial encounter; W01.0XXA Fall on same level from slipping, tripping and stumbling without subsequent striking against object, initial encounter; I25.10 Atherosclerotic heart disease of native coronary artery without angina pectoris; I50.9 Heart failure, unspecified; E11.9 Type 2 diabetes mellitus without complications; M15.9 Polyosteoarthritis, unspecified; Z86.718 Personal history of other venous thrombosis and embolism; Z95.5 Presence of coronary angioplasty implant and graft; Z95.2 Presence of prosthetic heart valve
CPT/HCPCS: 12011; 36415; 70450; 71045; 71046; 72125; 73030; 73060; 73200; 73560; 73562; 73700; 80048; 80053; 81003; 82948; 83605; 84484; 85025; 85027; 85610; 85730; 86140; 87040; 87635; 90471; 90715; 93005; 93970; 94640; 96360; 97110; 97161; 97166; 97530; 97535; 99284; 99285; A9270; C8929; J1815; J1938; J2003; J7030; P9047; Q9957

== ENCOUNTER 2025-03-09 13:05 | Inpatient (IN) | payer MEDICARE, BC, SELFPAY ==
[2025-03-09] VITALS (13 sets, daily range): BP systolic 120–157; BP diastolic 41–70; PULSE 70–80; RESP 18–33; TEMP 36.3–36.8; O2SAT 90–99; BMI 38.3
--- NOTE | ~2025-03-09 | XR_ITS ---
EXAMINATION: XR chest 2V, 03/09/2025 14:06 CDT HISTORY: SOB COMPARISON: No comparisons available. Technique: 2 views obtained. Findings: Moderate pulmonary venous congestion. No pneumothorax. Moderate cardiomegaly. Mediastinal and hilar contours are within normal limits. Poststernotomy. Impression: CHF Reviewed, dictated and finalized at location P. Impression: CHF
--- NOTE | ~2025-03-09 | US_ITS ---
EXAMINATION: US venous doppler LE RT, 03/10/2025 12:50 CDT HISTORY: asymmetric swelling Comparison: Comparison 12/08/2024 Technique: Calabrese-scale and color Doppler images were attempted of the lower saphenofemoral junction, common femoral vein,superficial femoral vein, proximal deep femoral vein, proximal deep femoral vein, popliteal vein and posterior tibial veins. Findings: Deep Venous System:Normal flow, augmentation and compressibility. No echogenic thrombus identified. The contralateral saphenofemoral junction appears unremarkable. Superficial Venous SystemNo superficial thrombophlebitis. Soft tissues: Soft tissues are unremarkable. Impression: Negative for DVT. Reviewed, dictated and finalized at location P. Impression: Negative for DVT.
--- NOTE | 2025-03-09 13:15 | ECG_ITS ---
Test Date: 2025-03-09 13:20:19 Measurements Intervals [place] Rate: 69 P: 0 NE: 0 QRS: 264 QRSD: 213 T: 67 QT: 479 QTc: 517 Interpretive Statements ELECTRONIC VENTRICULAR PACEMAKER BASELINE ARTIFACT- I, II, AVR, V1, V6 NO FURTHER INTERPRETATION IS POSSIBLE ATYPICAL ECG Compared to ECG 12/06/2024 08:47:39 No significant changes Electronically Signed On 03-09-2025 13:35:11 CDT by Ziyad Babb D.O.
[2025-03-09 13:30] LABS: Hematocrit 43.9 % (37.0-47.0); Hemoglobin 14.2 g/dL (12.0-15.0); Immature Granulocyte Percent A 0.3 % (0-0.5); Lymphocytes Absolute Auto 0.64 K/mm3 (0.9-3.2); Mean Corpuscular HGB Conc 32.3 g/dl (32-36); Mean Corpuscular Hemoglobin 30.9 pg (26-34); Mean Corpuscular Volume 95.6 fl (80-100); Nucleated Red Blood Cells Absolute Auto 0.000 K/mm3 (0.0-0.012); Nucleated Red Blood Cells Perc 0.0 % (0.0-0.2); Platelet Count Result 144 k/mm3 (150-375); Red Blood Count 4.59 M/mm3 (4.2-5.4); White Blood Count 3.4 K/mm3 (4.5-10.0)
[2025-03-09 13:49] LABS: Alanine Aminotransferase 27 U/L (6-35); Albumin Level 3.8 g/dL (3.5-5.1); Alkaline Phosphatase 90 U/L (38-126); Anion Gap 10 mmol/L (4-12); Aspartate Amino Transferase 55 U/L (14-36); Bilirubin,Total 1.1 mg/dL (0.2-1.3); Blood Urea Nitrogen 16 mg/dL (7-17); Calcium 9.2 mg/dL (8.4-10.2); Carbon Dioxide 23 mmol/L (22-30); Chloride 104 mmol/L (98-107); Estimated Glomerular Filt Rate 52; Glucose 187 mg/dL (65-110); Sodium 137 mmol/L (137-145); Total Protein 6.6 g/dL (6.3-8.2)
[2025-03-09 13:57] LABS: Potassium 4.3 mmol/L (3.4-5.0)
[2025-03-09 15:20] LABS: NT Pro B Type Natriuretic Pept 3570 pg/mL (19.9-100)
--- NOTE | 2025-03-09 16:02 | ED.SOB ---
HPI - SOB/Dyspnea General Chief Complaint: Shortness of Breath/Dyspnea Stated Complaint: SOB Time Seen by Provider: 03/09/25 13:33 History of Present Illness HPI Narrative: Patient is an 84-year-old female who presents ER with shortness of breath. Sudden onset while napping. EMS gave nebulizer and Decadron. Patient still with mild shortness of breath and now requiring O2 which she does not typically require. She has chronic edema in her lower extremities related to heart failure. No chest pain. No fevers or chills. She denies any cough. She does take Lasix and Entresto. Related Data Home Medications ?Medication ?Instructions ?Recorded ?Confirmed ?Last Taken ?Type atorvastatin 80 mg tablet 80 mg PO HS 03/20/24 03/09/25 Unknown History clopidogrel 75 mg tablet 75 mg PO DAILY 03/20/24 12/08/24 Unknown History furosemide 20 mg tablet 20 mg PO DAILY 03/20/24 12/08/24 Unknown History insulin degludec 200 unit/mL (3 22 unit subcut DAILY 03/20/24 12/08/24 Unknown History mL) subcutaneous pen metoprolol succinate 100 mg 100 mg PO BID 03/20/24 12/08/24 Unknown History tablet,extended release 24 hr multivitamin with minerals 2 tablet PO DAILY 03/20/24 12/08/24 Unknown History (Hair,Skin and Nails tablet) apixaban 5 mg tablet (Eliquis) 5 mg PO BID 12/08/24 12/08/24 Unknown History insulin degludec 200 unit/mL (3 22 unit subcut DAILY 12/08/24 12/08/24 Unknown History mL) subcutaneous pen (Tresiba FlexTouch U-200 insulin) oxybutynin ER 30 mg PO HS 12/08/24 12/08/24 Unknown History pantoprazole 40 mg tablet,delayed 40 mg PO QAM 12/08/24 12/08/24 Unknown History release sacubitril 24 mg-valsartan 26 mg 1 tablet PO BID 12/08/24 12/08/24 Unknown History tablet (Entresto) semaglutide 2 mg/dose (8 mg/3 mL) 2 mg subcut WEEKLY 12/08/24 12/08/24 Unknown History subcutaneous pen injector (Ozempic) spironolactone 25 mg tablet 12.5 mg PO QAM 12/08/24 12/08/24 Unknown History venlafaxine 75 mg capsule,extended 75 mg PO HS 12/08/24 12/08/24 Unknown History release 24 hr (Effexor XR) alprazolam 0.25 mg tablet 0.25 mg PO DAILY PRN anxiety 03/09/25 03/09/25 Unknown History buspirone 5 mg tablet 5 mg PO BID 03/09/25 03/09/25 Unknown History Allergies Allergy/AdvReac Type Severity Reaction Status Date / Time No Known Allergies Allergy Verified 03/09/25 16:43 Review of Systems Review of Systems: All systems reviewed & are unremarkable except as noted in HPI and below Constitutional: Constitutional: Reports no additional constitutional complaints ENT: Reports system reviewed and no additional complaints, except as documented Cardiovascular: Cardiovascular: Reports no additional cardiovascular complaints Respiratory: Respiratory: Reports no additional respiratory complaints Musculoskeletal: Musculoskeletal: Reports no additional musculoskeletal complaints PMF Past Medical History Medical History (Updated 03/09/25 @ 17:12 by Zay Balderrama MD) Atrial fibrillation Coronary artery disease Deep vein thrombosis September 2024 Insulin dependent type 2 diabetes mellitus Surgical History Surgical History (Updated 12/09/24 @ 13:51 by Minnie Navarrete PA-C) History of thrombectomy right groin DVT in September 2024 Aortic valve replaced Coronary artery disease status post coronary stent insertion 3 stents placed in 2022 Family History Family History (Updated 12/08/24 @ 04:13 by Stephie Ngo RN) Father Diabetes mellitus Other Heart disease Social History Social History Smoking status: Never smoker Alcohol intake: never Substance use: never Do You Feel Safe in your Home?: Yes Lack of Transportation: No Lack of Food: Never True Current Housing: I Have Housing Concerned About Future Housing: No Difficulty Paying Gas/Electric Bills: No Difficulty Paying for Meds: No Currently Unemployed: No Education: High School Diploma/GED Difficulty w/ Childcare or Family Care: No Living arrangements: assisted living Additional living arrangements comments: [facility] Spiritual care concerns: No Exam Narrative: GENERAL: Well-appearing, well-nourished, and in no acute distress. HEAD: Normocephalic, atraumatic. ENT: Mucous membranes moist. CHEST: Bibasilar crackles. No respiratory distress. HEART: Regular rate and rhythm. Normal peripheral pulses. ABDOMEN: Soft, nontender, nondistended. EXTREMITIES: Normal range of motion. No edema. SKIN: Warm, dry, no rash. NEURO: Alert and oriented x3. PSYCH: Normal mood and affect. Course Course Emergency Course: Lasix for diuresis. Accepted by the hospitalist service. Discussed care plan with her son. Vital Signs Vital signs: Vital Signs Temperature 98 F 03/09/25 13:16 Pulse Rate 70 03/09/25 13:16 Respiratory Rate 33 H 03/09/25 13:16 Blood Pressure 153/41 H 03/09/25 13:16 Pulse Oximetry 90 03/09/25 13:16 Oxygen Delivery Room Air 03/09/25 13:16 Temperature 98 F 03/09/25 13:16 Pulse Rate 71 03/09/25 15:33 Respiratory Rate 29 H 03/09/25 15:33 Blood Pressure 137/59 L 03/09/25 15:33 Pulse Oximetry 99 03/09/25 15:33 Oxygen Delivery Nasal Cannula 03/09/25 13:24 Oxygen Flow Rate 2 03/09/25 13:24 MDM - SOB/Dyspnea Differential Diagnosis Differential diagnosis: Likely congestive heart failure, community acquired pneumonia and asthma with exacerbation Lab Data 03/09/25 13:25 03/09/25 13:25 Labs: Lab Results 03/09/25 Range/Units 13:25 WBC 3.4 L (4.5-10.0) K/mm3 RBC 4.59 (4.2-5.4) M/mm3 Hgb 14.2 (12.0-15.0) g/dL Hct 43.9 (37.0-47.0) % MCV 95.6 (80-100) fl MCH 30.9 (26-34) pg MCHC 32.3 (32-36) g/dl RDW 15.6 H (11.5-14.5) % Plt Count 144 L (150-375) k/mm3 MPV 9.3 (7.4-10.4) fl Immature Gran % (Auto) 0.3 (0-0.5) % Neut % (Auto) 68.1 (45.5-73.1) % Lymph % (Auto) 18.9 (18.3-44.2) % Saline % (Auto) 8.6 H (2.6-8.5) % Eos % (Auto) 3.2 (0-4.4) % Baso % (Auto) 0.9 (0.2-1.2) % Lymph # (Auto) 0.64 L (0.9-3.2) K/mm3 Saline # (Auto) 0.3 (0.1-0.6) K/mm3 Eos # (Auto) 0.1 (0-0.3) K/mm3 Baso # (Auto) 0.0 (0.0-0.1) K/mm3 Abs Immat Gran (auto) 0.01 (0.00-0.031) K/mm3 Absolute Neuts (auto) 2.3 (1.3-6.7) K/mm3 Absolute Nucleated RBC 0.000 (0.0-0.012) K/mm3 Nucleated RBC % 0.0 (0.0-0.2) % Sodium 137 (137-145) mmol/L Potassium 4.3 (3.4-5.0) mmol/L Chloride 104 (98-107) mmol/L Carbon Dioxide 23 (22-30) mmol/L Anion Gap 10 (4-12) mmol/L BUN 16 (7-17) mg/dL Creatinine 1.01 H (0.7-1.0) mg/dL Estim Creat Clear Calc Not Reportable Estimated GFR 52 L (59 - ) Glucose 187 H (65-110) mg/dL Calcium 9.2 (8.4-10.2) mg/dL Total Bilirubin 1.1 (0.2-1.3) mg/dL AST 55 H (14-36) U/L ALT 27 (6-35) U/L Alkaline Phosphatase 90 (38-126) U/L NT-Pro-B Natriuret Pep 3570 H (19.9-100) pg/mL Total Protein 6.6 (6.3-8.2) g/dL Albumin 3.8 (3.5-5.1) g/dL Imaging Data Radiologist's impression: ITS Impressions Chest X-Ray 03/09/25 14:13 Impression: CHF ECG Data EKG #1: Attestation: I personally reviewed and interpreted this ECG as follows: ECG completion date: 03/09/25 ECG completion time: 13:20 EKG Interpretation: normal rate (69), widened QRS, prolonged QT and other ( paced) Discharge Plan Discharge Clinical Impression: CHF exacerbation Patient Disposition: Still a Patient Condition: Stable Patient Language: Frisian Prescriptions: No Action atorvastatin 80 mg Tablet 80 mg PO HS metoprolol succinate 100 mg Tablet Extended Release 24 Hr 100 mg PO BID clopidogrel 75 mg Tablet 75 mg PO DAILY furosemide 20 mg Tablet 20 mg PO DAILY Hair,Skin and Nails Tablet 2 tablet PO DAILY insulin degludec 200 unit/mL (3 mL) Insulin Pen 22 unit SUBCUT DAILY Eliquis 5 mg tablet 5 mg PO BID Entresto 24-26 mg tablet 1 tablet PO BID oxybutynin ER 15 mg tablet 30 mg PO HS Ozempic 2 mg/dose (8 mg/3 mL) pen injector 2 mg subcut WEEKLY Patient Comments: Wednesday pantoprazole 40 mg tablet,delayed release (DR/EC) 40 mg PO QAM spironolactone 25 mg tablet 12.5 mg PO QAM insulin degludec [Tresiba FlexTouch U-200] 200 unit/mL (3 mL) insulin pen 22 unit subcut DAILY venlafaxine [Effexor XR] 75 mg capsule,extended release 24hr 75 mg PO HS Follow-up/Referrals: Annie,Gerri Hernandez, SHOT EXAMINER [Primary Care Provider, Unknown]
[2025-03-09] MEDS: FUROSEMIDE INJ 40 MG/4 ML VIAL IV PUSH ×2 (16:10→20:12)
--- NOTE | 2025-03-09 17:30 | PC.NURSE ---
This patient, Lizabeth Perry, was admitted to [address] [place] [address] Room [facility] at 1730. Patient/family oriented to hospital policies and general routines including ID bracelet, bed and alarms, visiting hours, pain management, procedures, bathroom and other care routines, personal items, smoking policy, room service/diet, and visiting hours. Information on how to activate the Rapid Response Team has been discussed. Patient/Family are encouraged to report perceived risks to care and to ask questions if they do not understand what they are told or what they should do. This patient, Lizabeth Perry, was admitted to [address] [place] [address] Room [facility]. Patient/family oriented to hospital policies and general routines including ID bracelet, bed and alarms, visiting hours, pain management, procedures, bathroom and other care routines, personal items, smoking policy, room service/diet, and visiting hours. Information on how to activate the Rapid Response Team has been discussed. Patient/Family are encouraged to report perceived risks to care and to ask questions if they do not understand what they are told or what they should do.
--- NOTE | 2025-03-09 17:55 | P.HP_ITS ---
H&P: HPI History of Present Illness Date/Time: 03/09/25 17:55 Chief Complaint: Shortness of Breath Narrative: 84 y/o F with PMH of CHF, PVD, pacemaker, myocardial infarction, asthma, hypertension, hyperlipidemia, atrial fibrillation, DVT, coronary artery disease, and diabetes presents here with shortness of breath. The patient presents here from [facility] via EMS for further evaluation of shortness of breath. The patient reports she woke up from her nap today feeling short of breath. Denies cough, weight gain, congestion, fever, chills, or rhinorrhea. She does report her right lower extremity has been more edematous over the last few weeks, however no longer having blistering. Per EMS, upon their arrival she was 89% on room air. While in route to the hospital they gave her a dose of Decadron IV and a DuoNeb. The patient reported subjective improvement upon re-evaluation in the emergency department. However she arrived 90% on room air and remained tachypneic. She has a past medical history significant for congestive heart failure with chronic edema in her bilateral lower extremities and asthma. She reports compliance with her Lasix and Entresto. Initial VS at presentation: 98? F, HR 70, RR 33, 153/41, 90% on room air. Now 97% on 2L NC. ED workup showed: WBC 3.4, no anemia, no significant electrolyte derangements, creatinine 1.01 and GFR 52, glucose 187, BNP 3570. CXR showed CHF. EKG showed electronic ventricular pacemaker, rate 69. Review of Systems Review of Systems: All systems reviewed & are unremarkable except as noted in HPI and below [facility] Past Medical History Medical History HLD (hyperlipidemia) Hypertension Peripheral vascular disease History of pacemaker Myocardial infarction Congestive heart failure Atrial fibrillation Coronary artery disease Deep vein thrombosis September 2024 Insulin dependent type 2 diabetes mellitus Surgical History Surgical History History of thrombectomy right groin DVT in September 2024 Aortic valve replaced Coronary artery disease status post coronary stent insertion 3 stents placed in 2022 Family History Family History Father Diabetes mellitus Other Heart disease Social History Social History Smoking status: Never smoker Alcohol intake: never Substance use: never Substance use type: does not use Do You Feel Safe in your Home?: Yes Lack of Transportation: No Lack of Food: Never True Current Housing: I Have Housing Concerned About Future Housing: No Difficulty Paying Gas/Electric Bills: No Difficulty Paying for Meds: No Currently Unemployed: No Education: Decline to Answer Difficulty w/ Childcare or Family Care: No Living arrangements: assisted living Additional living arrangements comments: [facility] Spiritual care concerns: No Meds Home Medications and Allergies Home Medications ?Medication ?Instructions ?Recorded ?Confirmed ?Type atorvastatin 80 mg tablet 80 mg PO HS 03/20/24 5 History clopidogrel 75 mg tablet 75 mg PO DAILY 03/20/2402/15 History furosemide 20 mg tablet 20 mg PO BID PRN lower leg s welling 03/20/24 03/09/25 History metoprolol succinate 100 mg 100 mg PO BID 03/20/24 History tablet,extended release 24 hr multivitamin with minerals 2 tablet PO DAILY 03/20/24 03/09/25 History (Hair,Skin and Nails tablet) apixaban 5 mg tablet (Eliquis) 5 mg PO BID 12/08/24 History insulin degludec 200 unit/mL (3 24 unit subcut DAILY 0 12/08/24 03/09/25 History mL) subcutaneous pen (Tresiba FlexTouch U-200 insulin) oxybutynin ER 30 mg PO HS 12/08/24 5 History pantoprazole 40 mg tablet,delayed 40 mg PO QAM 5 03/09/25 History release sacubitril 24 mg-valsartan 26 mg 1 tablet PO BID 12/0803/09/25 History tablet (Entresto) semaglutide 2 mg/dose (8 mg/3 mL) 2 mg subcut WEEKLY 0 12/08/24 03/09/25 History subcutaneous pen injector (Ozempic) spironolactone 25 mg tablet 12.5 mg PO QAM 12/08/24 History venlafaxine 75 mg capsule,extended 75 mg PO HS 5 03/09/25 History release 24 hr (Effexor XR) alprazolam 0.25 mg tablet 0.25 mg PO DAILY PRN anxiety 03/09/25 03/09/25 History buspirone 5 mg tablet 5 mg PO BID 03/09/25 5 History cetirizine 10 mg capsule (All Day 10 mg PO HS 03/09/25 03/09/25 History Allergy (cetirizine)) clobetasol 0.05 % scalp solution 1 applic topical BID 03/09/25 03/09/25 History ketoconazole 2 % topical cream 1 applic topical DAILY 03/09/25 03/09/25 History loperamide 2 mg capsule 2 mg PO DAILY PRN loose stoo l 03/09/25 03/09/25 History (Anti-Diarrheal (loperamide)) wptggveg-jil-qgraw acid 0.4 1 tablet PO DAILY 03/09/25 03/09/25 History mg-lycopene 300 mcg-lutein 250 mcg tablet (A Thru Z Select 50 Plus Formula) nystatin 100,000 unit/gram topical 1 applic topical BI D 03/09/25 03/09/25 History powder roflumilast 0.3 % topical cream 1 applic topical DAILY 03/09/25 03/09/25 History (Zoryve) Allergies Allergy/AdvReac Type Severity Reaction Status Date / Time No Known Allergies Allergy Verified 03/09/25 17:50 Vital Signs Vital Signs - 24 hr 03/09/25 13:16 03/09/25 13:24 03/09/25 13:24 Temperature 98 F Pulse Rate 70 70 Respiratory Rate 33 H Blood Pressure 153/41 H Pulse Oximetry 90 94 Oxygen Delivery Room Air Nasal Cannula Oxygen Flow Rate 2 03/09/25 13:31 03/09/25 13:47 03/09/25 15:33 Temperature Pulse Rate 80 70 71 Respiratory Rate 30 H 25 H 29 H Blood Pressure 157/49 H 134/44 L 137/59 L Pulse Oximetry 93 94 99 Oxygen Delivery Oxygen Flow Rate 03/09/25 16:10 Temperature Pulse Rate 73 Respiratory Rate 22 H Blood Pressure 151/59 H Pulse Oximetry 97 Oxygen Delivery Oxygen Flow Rate Exam Narrative: Const: General: comfortable and no acute distress Other: , female, elderly, nontoxic appearance HENMT: Face/Nose/Sinus: Normal nares present Mouth: Yes moist mucous membranes Eyes: General: appearance normal, both eyes and all related structures Sclera: sclerae normal Pupils: Equal, round and reactive pupils present EOM: EOMs intact bilaterally Resp: Effort & Inspection: normal respiratory effort Other: bibasilar crackles. Cardio: Rate: regular rate Rhythm: regular rhythm Other: + murmur. GI: Other: Abdomen soft, nondistended, nontender. Normoactive bowel sounds in all quadrants. Skin: General skin exam: no rashes or lesions noted Other: has small <0.5 cm abrasion to the 5th toe, no sings of infection. petechiae and hyperpigmentation noted to the RLE. Neuro: Speech: normal speech Motor exam (neuro): 5/5 motor strength present throughout Sensory Exam: normal sensation Other: A&O x4 Extrem: Other: no edema to the LLE. DP pulse 1+ on the LLE and barely palpable on the RLE. 1+ pitting edema to the RLE. Psych: Mental Status: mental status grossly normal Affect: normal affect Other: Good insight and judgment, pleasant H&P: Results Labs Labs: Short CBC 03/09/25 Range/Units 13:25 WBC 3.4 L (4.5-10.0) K/mm3 Hgb 14.2 (12.0-15.0) g/dL Hct 43.9 (37.0-47.0) % Plt Count 144 L (150-375) k/mm3 BMP 03/09/25 13:25 Sodium 137 Potassium 4.3 Chloride 104 Carbon Dioxide 23 BUN 16 Creatinine 1.01 H Glucose 187 H Calcium 9.2 Liver Function 03/09/25 Range/Units 13:25 Total Bilirubin 1.1 (0.2-1.3) mg/dL AST 55 H (14-36) U/L ALT 27 (6-35) U/L Alkaline Phosphatase 90 (38-126) U/L Albumin 3.8 (3.5-5.1) g/dL Assessment and Plan Assessment and plan (1) Acute hypoxic respiratory failure: Code(s): J96.01 - Acute respiratory failure with hypoxia Status: Acute Assessment and Plan: Sudden onset of shortness of breath post nap that occurred the day of admission, 03/09. CXR showed CHF. Has history of same. Initially 89% on room air per EMS, improved with Decadron and DuoNeb to 90% on room air. Placed on supplemental O2 and now maintaining O2 sat greater than 92%. Plan for diuresis, see plan below. No current concern for infectious etiology. (2) CHF exacerbation: Qualifiers: Heart failure type: unspecified Qualified Code(s): I50.9 - Heart failure, unspecified Code(s): I50.9 - Heart failure, unspecified Status: Acute Assessment and Plan: Patient has a history of congestive heart failure. Current symptoms concerning for CHF exacerbation. Reviewed chart, previous echo completed in November of 2024. This showed a mildly dilated LV with normal systolic function, estimated EF 60- 65%, severe aortic stenosis and severe aortic regurgitation, mild MV regurgitation, LA severely dilated. She reports compliance with her home diuresis, Lasix 20 mg b.i.d. as needed. - start IV diuresis, Lasix 40 mg IV b.i.d. Hold home Lasix. Continue spironolactone. - monitor I&Os daily weights - trend renal function (3) Edema of right lower extremity: Code(s): R60.0 - Localized edema Status: Acute Assessment and Plan: Patient has 1+ pitting edema to the right lower extremity, no edema appreciated in the left lower extremity. She reports this has been ongoing for weeks and has previously had blistering associated with it. No rales currently. DP pulse is difficult to palpate on exam. Has history of PVD. Hyperpigmentation and petechiae to the right lower extremity noted. Patient is on Eliquis. - check ultrasound of the right lower extremity (4) Atrial fibrillation: Qualifiers: Atrial fibrillation type: unspecified chronic Qualified Code(s): I48.20 - Chronic atrial fibrillation, unspecified Code(s): I48.91 - Unspecified atrial fibrillation Status: Chronic Assessment and Plan: History of AFib. Reviewed EKG completed in the ED, showing electronic ventricular pacemaker with a rate of 69. Stable. - continue home medications including metoprolol 100 mg b.i.d. and Eliquis b.i.d.. 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 Hold Tresiba U-200 24 units daily, reduced by 20% as glargine 19 units HS. - correct regimen ordered - low/high dose TIDWM - A1C 6.9% in March of 2024 (6) Hypertension: Qualifiers: Hypertension type: primary hypertension Qualified Code(s): I10 - Essential (primary) hypertension Code(s): I10 - Essential (primary) hypertension Status: Chronic Assessment and Plan: - chronic, currently 151/59, stable - continue home medications: Entresto - monitor Plan Diet: Heart healthy GI Prophylaxis: N/a DVT Prophylaxis: Eliquis IV fluids: None, diuresing Lines/Tubes: Peripheral IV Code Status: Full code Quality VTE Prophylaxis VTE prophylaxis: pharmacologic ordered Hospitalist [facility] Advance Care Plan I have confirmed that the patient's Advanced Care Plan is present, code status is documented, or surrogate decision maker is listed in patient medical record.: Yes Medication Reconciliation I have utilized all available resources to obtain, update and review the patients current medications (includes all prescriptions, OTC, herbals, cannabis, and nutritional supplements).: Yes
[2025-03-09] MEDS: ATORVASTATIN 40 MG TABLET 80 MG PO (20:09)
[2025-03-09] MEDS: VENLAFAXINE HCL XR 75 MG CAP.ER.24H PO (20:09)
[2025-03-09] MEDS: SACUBITRIL/VALSARTAN 24-26 MG TABLET 1 TAB PO (20:09)
[2025-03-09] MEDS: LORATADINE 10 MG TABLET PO (20:09)
[2025-03-09] MEDS: APIXABAN 5 MG TABLET PO (20:09)
[2025-03-09] MEDS: METOPROLOL SUCCINATE EXT REL 100 MG TABCR PO (20:10)
[2025-03-09] MEDS: INSULIN GLARGINE (*BKC) 100 UNITS/ML 19 UNITS SUB-Q (20:11)
[2025-03-09] MEDS: MELATONIN 3 MG TABLET PO (22:35)
[2025-03-10] VITALS (13 sets, daily range): BP systolic 122–158; BP diastolic 38–72; PULSE 69–83; RESP 16–20; TEMP 36.5–36.7; O2SAT 95–98
--- NOTE | 2025-03-10 06:36 | PM.IMPN ---
Progress Note: A&P Assessment and Plan (1) Acute hypoxic respiratory failure: Code(s): J96.01 - Acute respiratory failure with hypoxia Status: Acute Assessment and Plan: Sudden onset of shortness of breath post nap that occurred the day of admission, 03/09. CXR showed CHF. Has history of same. Initially 89% on room air per EMS, improved with Decadron and DuoNeb to 90% on room air. Placed on supplemental O2 and now maintaining O2 sat greater than 92%. Plan for diuresis, see plan below. No current concern for infectious etiology. Symptoms: SOB SpO2: 97% on 1L NC Suspected cause: CHF exacerbation EKG: normal rate, widened QRS, prolonged QT Chest XR: CHF 03/10: 97% on room air Continue diuresis (2) CHF exacerbation: Qualifiers: Heart failure type: unspecified Qualified Code(s): I50.9 - Heart failure, unspecified Code(s): I50.9 - Heart failure, unspecified Status: Acute Assessment and Plan: Patient has a history of congestive heart failure. Current symptoms concerning for CHF exacerbation. Reviewed chart, previous echo completed in November of 2024. This showed a mildly dilated LV with normal systolic function, estimated EF 60-65%, severe aortic stenosis and severe aortic regurgitation, mild MV regurgitation, LA severely dilated. She reports compliance with her home diuresis, Lasix 20 mg b.i.d. as needed. start IV diuresis, Lasix 40 mg IV b.i.d. Hold home Lasix. Continue spironolactone. monitor I&Os daily weights trend renal function Continue diuresis (3) Edema of right lower extremity: Code(s): R60.0 - Localized edema Status: Acute Assessment and Plan: Patient has 1+ pitting edema to the right lower extremity, no edema appreciated in the left lower extremity. She reports this has been ongoing for weeks and has previously had blistering associated with it. No rales currently. DP pulse is difficult to palpate on exam. Has history of PVD. Hyperpigmentation and petechiae to the right lower extremity noted. Patient is on Eliquis. check ultrasound of the right lower extremity -pending (4) Atrial fibrillation: Qualifiers: Atrial fibrillation type: unspecified chronic Qualified Code(s): I48.20 - Chronic atrial fibrillation, unspecified Code(s): I48.91 - Unspecified atrial fibrillation Status: Chronic Assessment and Plan: History of AFib. Reviewed EKG completed in the ED, showing electronic ventricular pacemaker with a rate of 69. Stable. continue home medications including metoprolol 100 mg b.i.d. and Eliquis b.i.d.. 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 Hold Tresiba U-200 24 units daily, reduced by 20% as glargine 19 units HS. correct regimen ordered - low/high dose TIDWM A1C 6.9% in March of 2024 (6) Hypertension: Qualifiers: Hypertension type: primary hypertension Qualified Code(s): I10 - Essential (primary) hypertension Code(s): I10 - Essential (primary) hypertension Status: Chronic Assessment and Plan: chronic, currently 151/59, stable continue home medications: Entresto monitor Plan Diet: Heart healthy GI Prophylaxis: N/a DVT Prophylaxis: Eliquis IV fluids: None, diuresing Lines/Tubes: Peripheral IV Code Status: Full code Subjective Date/time seen: 03/10/25 06:36 Interval history: 84 y/o F with PMH of CHF, PVD, pacemaker, myocardial infarction, asthma, hypertension, hyperlipidemia, atrial fibrillation, DVT, coronary artery disease, and diabetes presents here with shortness of breath. 03/10/2025 Patient sitting comfortably in bed at time of examination. Denies any chest pain, shortness a breath, nausea/vomiting or abdominal pain. Still endorsing some pain of the 5th digit the left foot but states that her breathing has greatly improved. Does not appear fluid overloaded on exam. Venous Doppler pending. Review of Systems Review of Systems: All systems reviewed & are unremarkable except as noted in HPI and below Exam Narrative: Const: General: comfortable and no acute distress Other: , female, elderly, nontoxic appearance HENMT: Face/Nose/Sinus: Normal nares present Mouth: Yes moist mucous membranes Eyes: General: appearance normal, both eyes and all related structures Sclera: sclerae normal Pupils: Equal, round and reactive pupils present EOM: EOMs intact bilaterally Resp: Effort & Inspection: normal respiratory effort Other: bibasilar crackles. Cardio: Rate: regular rate Rhythm: regular rhythm Other: + murmur. GI: Other: Abdomen soft, nondistended, nontender. Normoactive bowel sounds in all quadrants. Skin: General skin exam: no rashes or lesions noted Other: has small <0.5 cm abrasion to the 5th toe, no sings of infection. petechiae and hyperpigmentation noted to the RLE. Neuro: Cranial nerves: Yes Equal, round and reactive pupils present Speech: normal speech Motor exam (neuro): 5/5 motor strength present throughout Sensory Exam: normal sensation Other: A&O x4 Extrem: Other: no edema to the LLE. DP pulse 1+ on the LLE and barely palpable on the RLE. 1+ pitting edema to the RLE. Psych: Mental Status: mental status grossly normal Affect: normal affect Other: Good insight and judgment, pleasant Objective Data Vital Signs Vital Signs: Vital Signs - 24 hr 03/09/25 13:16 03/09/25 13:24 03/09/25 13:24 Temperature 98 F Pulse Rate 70 70 Respiratory Rate 33 H Blood Pressure 153/41 H Pulse Oximetry 90 94 Oxygen Delivery Room Air Nasal Cannula Oxygen Flow Rate 2 03/09/25 13:31 03/09/25 13:47 03/09/25 15:33 Temperature Pulse Rate 80 70 71 Respiratory Rate 30 H 25 H 29 H Blood Pressure 157/49 H 134/44 L 137/59 L Pulse Oximetry 93 94 99 Oxygen Delivery Oxygen Flow Rate 03/09/25 16:10 03/09/25 18:01 03/09/25 18:24 Temperature 97.3 F L Pulse Rate 73 77 73 Respiratory Rate 22 H 18 22 H Blood Pressure 151/59 H 120/70 Pulse Oximetry 97 95 97 Oxygen Delivery Nasal Cannula Oxygen Flow Rate 1 03/09/25 18:24 03/09/25 20:00 03/09/25 20:10 Temperature Pulse Rate 73 70 70 Respiratory Rate Blood Pressure Pulse Oximetry Oxygen Delivery Oxygen Flow Rate 03/09/25 20:35 03/09/25 22:00 03/09/25 22:10 Temperature 98.3 F Pulse Rate 72 Respiratory Rate 18 Blood Pressure 132/66 Pulse Oximetry 99 99 99 Oxygen Delivery Nasal Cannula Nasal Cannula Oxygen Flow Rate 1 1 03/10/25 00:00 03/10/25 04:00 03/10/25 06:00 Temperature 98.0 F Pulse Rate 74 78 77 Respiratory Rate 18 Blood Pressure 126/72 Pulse Oximetry 97 Oxygen Delivery Oxygen Flow Rate Intake/Output Intake/Output: Intake & Output 03/07/25 03/08/25 03/09/25 03/10/25 23:59 23:59 23:59 23:59 Output Total 1100 1500 Balance -1100 -1500 Meds/Results Medications: Active Medications Generic Name Dose Route Start Last Admin Trade Name Freq PRN Reason Stop Dose Admin Acetaminophen 650 mg 03/09/25 16:22 Acetaminophen 325 Mg Tablet PO Q4H PRN Mild Pain (1-3) or Fever Alprazolam 0.25 mg 03/09/25 18:31 Alprazolam (*Crx) 0.25 Mg Tablet PO DAILY PRN Anxiety Apixaban 5 mg 03/09/25 21:00 03/09/25 20:09 Apixaban 5 Mg Tablet PO 5 mg Q12HR JAIME Administration Atorvastatin Calcium 80 mg 03/09/25 21:00 03/09/25 20:09 Atorvastatin 40 Mg Tablet PO 80 mg HS JAIME Administration Buspirone HCl 5 mg 03/09/25 18:40 03/09/25 20:09 Buspirone Hcl 5 Mg Tablet PO 5 mg BID JAIME Administration Clopidogrel Bisulfate 75 mg 03/10/25 09:00 Clopidogrel Bisulfate 75 Mg Tablet PO DAILY JAIME Dextrose 12.5 gm 03/09/25 18:32 Dextrose 50% 25 Gm/50 Ml Syringe IV PUSH PRN PRN Hypoglycemia Protocol Furosemide 40 mg 03/09/25 21:00 03/09/25 20:12 Furosemide Inj 40 Mg/4 Ml Vial IV PUSH 40 mg Q12HR JAIME Administration Glucagon 1 mg 03/09/25 18:32 Glucagon For Inj 1 Mg Vial IM PRN PRN Hypoglycemia Protocol Glucose 15 gm 03/09/25 18:32 Glucose Oral Gel 15 Gm Of Glucse In 37.5 Gm Tube PO PRN PRN Hypoglycemia Protocol Dextrose 1,000 mls @ 100 mls/hr 03/09/25 18:32 Dextrose 5% 1,000 Ml IVPB PRN PRN Hypoglycemia Protocol Insulin Aspart 4 - 8 units 03/10/25 08:00 Insulin Aspart (*Bkc) 100 Units/Ml SUB-Q TIDWM JAIME Protocol Insulin Glargine 19 units 03/09/25 21:00 03/09/25 20:11 Insulin Glargine (*Bkc) 100 Units/Ml SUB-Q 19 units HS JAIME Administration Loperamide HCl 2 mg 03/09/25 18:31 Loperamide Hcl 2 Mg Capsule PO DAILY PRN Loose Stool Loratadine 10 mg 03/09/25 21:00 03/09/25 20:09 Loratadine 10 Mg Tablet PO 10 mg HS JAIME Administration Melatonin 3 mg 03/09/25 22:05 03/09/25 22:35 Melatonin 3 Mg Tablet PO 3 mg HS JAIME Administration Metoprolol Succinate 100 mg 03/09/25 21:00 03/09/25 20:10 Metoprolol Succinate Ext Rel 100 Mg Tabcr PO 100 mg Q12HR JAIME Administration Miconazole Nitrate 1 applic 03/10/25 09:00 Miconazole Nitrate 2% Cream 30 Gm Tube TOPICAL DAILY [facility] Miscellaneous Information 1 each 03/09/25 18:44 Central Supply Item XX 03/10/25 18:43 PRN PRN Informational Miscellaneous Information 1 each 03/10/25 00:01 Clobetasol 0.05% Soln Is Nonform; Pharmacy Has Cream Or Pt Can Use From Home. Also Clarif XX 04/09/25 00:00 CLARIFY [facility] Miscellaneous Information 1 each 03/10/25 00:01 Pharmacy Has Ditropan Xl 5 Mg Tabs, Pt Will Have To Take 6 To Get A 30 Mg Dose. Would Pt XX 04/09/25 00:00 CLARIFY [facility] Miscellaneous Information 1 each 03/10/25 00:01 Zoryve Cream Is Nonform; Can Pt Use From Home? XX 04/09/25 00:00 CLARIFY JAIME Multivitamins/Minerals 1 tab 03/10/25 09:00 Multivitamins /C Lutein (Centrum Silver) Tablet *Bkc PO DAILY JAIME Non-Formulary Medication 1 applic 03/10/25 09:00 Clobetasol TOPICAL 04/09/25 08:59 BID JAIME Non-Formulary Medication 30 mg 03/09/25 21:00 Oxybutynin Er PO 04/08/25 20:59 HS JAIME Non-Formulary Medication 1 applic 03/10/25 09:00 Roflumilast [Zoryve] TOPICAL 04/09/25 08:59 DAILY JAIME Non-Formulary Medication 1 each 03/09/25 18:44 Nonformulary Nutritional Supplement XX 03/10/25 18:43 PRN PRN PROTOCOL Ondansetron HCl 4 mg 03/09/25 16:22 Ondansetron Inj 4 Mg/2 Ml Vial IV PUSH Q4H PRN Nausea Pantoprazole Sodium 40 mg 03/10/25 09:00 Pantoprazole 40 Mg Tablet PO QAM JAIME Sacubitril/Valsartan 1 tab 03/09/25 21:00 03/09/25 20:09 Sacubitril/Valsartan 24-26 Mg Tablet PO 1 tab Q12HR JAIME Administration Spironolactone 12.5 mg 03/10/25 09:00 Spironolactone 12.5 Mg Tablet PO QAM [facility] Venlafaxine HCl 75 mg 03/09/25 21:00 03/09/25 20:09 Venlafaxine Hcl Xr 75 Mg Cap.Er.24h PO 75 mg HS JAIME Administration Radiology Results: ITS Impressions Chest X-Ray 03/09/25 14:13 Impression: CHF Labs Labs: Laboratory Results - last 24 hr 03/09/25 03/09/25 03/09/25 13:25 19:47 20:09 WBC 3.4 L RBC 4.59 Hgb 14.2 Hct 43.9 MCV 95.6 MCH 30.9 MCHC 32.3 RDW 15.6 H Plt Count 144 L MPV 9.3 Immature Gran % (Auto) 0.3 Neut % (Auto) 68.1 Lymph % (Auto) 18.9 Leake % (Auto) 8.6 H Eos % (Auto) 3.2 Baso % (Auto) 0.9 Lymph # (Auto) 0.64 L Leake # (Auto) 0.3 Eos # (Auto) 0.1 Baso # (Auto) 0.0 Abs Immat Gran (auto) 0.01 Absolute Neuts (auto) 2.3 Absolute Nucleated RBC 0.000 Nucleated RBC % 0.0 Sodium 137 Potassium 4.3 Chloride 104 Carbon Dioxide 23 Anion Gap 10 BUN 16 Creatinine 1.01 H Estim Creat Clear Calc Not Reportable Estimated GFR 52 L Glucose 187 H POC Capillary Glucose 148 H 191 H Calcium 9.2 Total Bilirubin 1.1 AST 55 H ALT 27 Alkaline Phosphatase 90 NT-Pro-B Natriuret Pep 3570 H Total Protein 6.6 Albumin 3.8 Quality VTE Prophylaxis VTE prophylaxis: pharmacologic ordered
[2025-03-10] MEDS: APIXABAN 5 MG TABLET PO ×2 (09:26→21:44)
[2025-03-10] MEDS: MICONAZOLE NITRATE 2% CREAM 30 GM TUBE 1 APPLIC TOPICAL (09:26)
[2025-03-10] MEDS: SACUBITRIL/VALSARTAN 24-26 MG TABLET 1 TAB PO ×2 (09:26→21:43)
[2025-03-10] MEDS: PANTOPRAZOLE 40 MG TABLET PO (09:26)
[2025-03-10] MEDS: CLOPIDOGREL BISULFATE 75 MG TABLET PO (09:26)
[2025-03-10] MEDS: MULTIVITAMINS /C LUTEIN (CENTRUM SILVER) TABLET *BKC 1 TAB PO (09:26)
[2025-03-10] MEDS: METOPROLOL SUCCINATE EXT REL 100 MG TABCR PO ×2 (09:26→21:43)
[2025-03-10] MEDS: FUROSEMIDE INJ 40 MG/4 ML VIAL IV PUSH ×2 (11:56→21:50)
[2025-03-10] MEDS: INSULIN ASPART (*BKC) 100 UNITS/ML SUB-Q (12:50)
[2025-03-10] MEDS: MELATONIN 3 MG TABLET PO (21:43)
[2025-03-10] MEDS: VENLAFAXINE HCL XR 75 MG CAP.ER.24H PO (21:44)
[2025-03-10] MEDS: ALPRAZolam (*CRX) 0.25 MG TABLET PO (21:44)
[2025-03-10] MEDS: LORATADINE 10 MG TABLET PO (21:44)
[2025-03-10] MEDS: oxyBUTYnin CHLORIDE XL 5 MG TAB.ER.24 30 MG PO (21:44)
[2025-03-10] MEDS: ATORVASTATIN 40 MG TABLET 80 MG PO (21:44)
[2025-03-10] MEDS: INSULIN GLARGINE (*BKC) 100 UNITS/ML 19 UNITS SUB-Q (21:50)
[2025-03-11] VITALS (12 sets, daily range): BP systolic 118–152; BP diastolic 24–52; PULSE 69–147; RESP 18–20; TEMP 36.6–36.8; O2SAT 91–100
--- NOTE | 2025-03-11 06:58 | P.PNIM_ITS ---
Progress Note: A&P Assessment and Plan (1) Acute hypoxic respiratory failure: Code(s): J96.01 - Acute respiratory failure with hypoxia Status: Acute Assessment and Plan: Sudden onset of shortness of breath post nap that occurred the day of admission, 03/09. CXR showed CHF. Has history of same. Initially 89% on room air per EMS, improved with Decadron and DuoNeb to 90% on room air. Placed on supplemental O2 and now maintaining O2 sat greater than 92%. Plan for diuresis, see plan below. No current concern for infectious etiology. * Symptoms: SOB * SpO2: 97% on 1L NC * Suspected cause: CHF exacerbation * EKG: normal rate, widened QRS, prolonged QT * Chest XR: CHF * 03/11: 93% on room air * Continue diuresis (2) CHF exacerbation: Qualifiers: Heart failure type: unspecified Qualified Code(s): I50.9 - Heart failure, unspecified Code(s): I50.9 - Heart failure, unspecified Status: Acute Assessment and Plan: Patient has a history of congestive heart failure. Current symptoms concerning for CHF exacerbation. Reviewed chart, previous echo completed in November of 2024. This showed a mildly dilated LV with normal systolic function, estimated EF 60- 65%, severe aortic stenosis and severe aortic regurgitation, mild MV regurgitation, LA severely dilated. She reports compliance with her home diuresis, Lasix 20 mg b.i.d. as needed. * start IV diuresis, Lasix 40 mg IV b.i.d. Hold home Lasix. Continue spironolactone. * monitor I&Os daily weights * trend renal function * Continue diuresis * Slightly edematous in LE but greatly improved * Switch back to oral Lasix tonight (3) Edema of right lower extremity: Code(s): R60.0 - Localized edema Status: Acute Assessment and Plan: Patient has 1+ pitting edema to the right lower extremity, no edema appreciated in the left lower extremity. She reports this has been ongoing for weeks and has previously had blistering associated with it. No rales currently. DP pulse is difficult to palpate on exam. Has history of PVD. Hyperpigmentation and petechiae to the right lower extremity noted. Patient is on Eliquis. * check ultrasound of the right lower extremity -negative for DVT (4) Atrial fibrillation: Qualifiers: Atrial fibrillation type: unspecified chronic Qualified Code(s): I48.20 - Chronic atrial fibrillation, unspecified Code(s): I48.91 - Unspecified atrial fibrillation Status: Chronic Assessment and Plan: History of AFib. Reviewed EKG completed in the ED, showing electronic ventricular pacemaker with a rate of 69. Stable. * continue home medications including metoprolol 100 mg b.i.d. and Eliquis b.i.d.. 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 Hold Tresiba U-200 24 units daily, reduced by 20% as glargine 19 units HS. * correct regimen ordered - low/high dose TIDWM * A1C 6.9% in March of 2024 (6) Hypertension: Qualifiers: Hypertension type: primary hypertension Qualified Code(s): I10 - Essential (primary) hypertension Code(s): I10 - Essential (primary) hypertension Status: Chronic Assessment and Plan: * chronic, currently 151/59, stable * continue home medications: Entresto * monitor Plan Diet: Heart healthy GI Prophylaxis: N/a DVT Prophylaxis: Eliquis IV fluids: None, diuresing Lines/Tubes: Peripheral IV Code Status: Full code Subjective Date/time seen: 03/11/25 06:58 Interval history: 84 y/o F with PMH of CHF, PVD, pacemaker, myocardial infarction, asthma, hypertension, hyperlipidemia, atrial fibrillation, DVT, coronary artery disease, and diabetes presents here with shortness of breath. 03/11/2025 Patient sitting comfortably in bed at time of examination. Patient states her breathing is much better and her swelling has improved. Will switch over to oral lasix tonight in preparation for discharge tomorrow. Nurse reports son will be able to take patient back to facility tomorrow as well. PT/OT recommends home health therapy - working with [facility] to make sure this is set up tomorrow. Review of Systems Review of Systems: All systems reviewed & are unremarkable except as noted in HPI and below Exam Narrative: Const: General: comfortable and no acute distress Other: , female, elderly, nontoxic appearance HENMT: Face/Nose/Sinus: Normal nares present Mouth: Yes moist mucous membranes Eyes: General: appearance normal, both eyes and all related structures Sclera: sclerae normal Pupils: Equal, round and reactive pupils present EOM: EOMs intact bilaterally Resp: Effort & Inspection: normal respiratory effort Other: bibasilar crackles. Cardio: Rate: regular rate Rhythm: regular rhythm Other: + murmur. GI: Other: Abdomen soft, nondistended, nontender. Normoactive bowel sounds in all quadrants. Skin: General skin exam: no rashes or lesions noted Other: has small <0.5 cm abrasion to the 5th toe, no sings of infection. petechiae and hyperpigmentation noted to the RLE. Neuro: Cranial nerves: Yes Equal, round and reactive pupils present Speech: normal speech Motor exam (neuro): 5/5 motor strength present throughout Sensory Exam: normal sensation Other: A&O x4 Extrem: Other: no edema to the LLE. DP pulse 1+ on the LLE and barely palpable on the RLE. 1+ pitting edema to the RLE. Psych: Mental Status: mental status grossly normal Affect: normal affect Other: Good insight and judgment, pleasant Objective Data Vital Signs Vital Signs: Vital Signs - 24 hr 03/10/25 07:47 03/10/25 08:00 03/10/25 08:00 Temperature Pulse Rate 83 72 Respiratory Rate 20 Blood Pressure Pulse Oximetry 98 Oxygen Delivery Nasal Cannula Room Air Oxygen Flow Rate 1 Fraction of Inspired Oxygen 24 03/10/25 08:51 03/10/25 09:26 03/10/25 12:00 Temperature Pulse Rate 80 80 70 Respiratory Rate 20 Blood Pressure Pulse Oximetry 97 Oxygen Delivery Room Air Oxygen Flow Rate Fraction of Inspired Oxygen 03/10/25 14:00 03/10/25 16:00 03/10/25 20:00 Temperature 97.7 F Pulse Rate 71 70 70 Respiratory Rate 16 Blood Pressure 122/44 L Pulse Oximetry 95 Oxygen Delivery Oxygen Flow Rate Fraction of Inspired Oxygen 03/10/25 21:28 03/10/25 21:43 03/10/25 22:00 Temperature 98.0 F Pulse Rate 69 69 Respiratory Rate 18 Blood Pressure 158/38 H Pulse Oximetry 98 Oxygen Delivery Room Air Oxygen Flow Rate Fraction of Inspired Oxygen 03/11/25 00:00 03/11/25 04:00 03/11/25 06:00 Temperature 97.8 F Pulse Rate 70 70 70 Respiratory Rate 18 Blood Pressure 152/24 H Pulse Oximetry 96 Oxygen Delivery Oxygen Flow Rate Fraction of Inspired Oxygen Intake/Output Intake/Output: Intake & Output 03/08/25 03/09/25 03/10/25 03/11/25 23:59 23:59 23:59 23:59 Intake Total 710 Output Total 1100 5586 3579 Balance -1088 -5454 -7841 Meds/Results Medications: Active Medications Generic Name Dose Route Start Last Admin Trade Name Freq PRN Reason Stop Dose Admin Acetaminophen 650 mg 03/09/25 16:22 Acetaminophen 325 Mg Tablet PO Q4H PRN Mild Pain (1-3) or Fever Alprazolam 0.25 mg 03/09/25 18:31 03/10/25 21:44 Alprazolam (*Crx) 0.25 Mg Tablet PO 0.25 mg DAILY PRN Administration Anxiety Apixaban 5 mg 03/09/25 21:00 03/10/25 21:44 Apixaban 5 Mg Tablet PO 5 mg Q12HR JAIME Administration Atorvastatin Calcium 80 mg 03/09/25 21:00 03/10/25 21:44 Atorvastatin 40 Mg Tablet PO 80 mg HS JAIME Administration Buspirone HCl 5 mg 03/09/25 18:40 03/10/25 16:45 Buspirone Hcl 5 Mg Tablet PO 5 mg BID JAIME Administration Clopidogrel Bisulfate 75 mg 03/10/25 09:00 03/10/25 09:26 Clopidogrel Bisulfate 75 Mg Tablet PO 75 mg DAILY JAIME Administration Dextrose 12.5 gm 03/09/25 18:32 Dextrose 50% 25 Gm/50 Ml Syringe IV PUSH PRN PRN Hypoglycemia Protocol Furosemide 40 mg 03/09/25 21:00 03/10/25 21:50 Furosemide Inj 40 Mg/4 Ml Vial IV PUSH 40 mg Q12HR JAIME Administration Glucagon 1 mg 03/09/25 18:32 Glucagon For Inj 1 Mg Vial IM PRN PRN Hypoglycemia Protocol Glucose 15 gm 03/09/25 18:32 Glucose Oral Gel 15 Gm Of Glucse In 37.5 Gm Tube PO PRN PRN Hypoglycemia Protocol Dextrose 1,000 mls @ 100 mls/hr 03/09/25 18:32 Dextrose 5% 1,000 Ml IVPB PRN PRN Hypoglycemia Protocol Insulin Aspart 4 - 8 units 03/10/25 08:00 03/10/25 16:45 Insulin Aspart (*Bkc) 100 Units/Ml SUB-Q Not Given TIDWM JAIME Protocol Insulin Glargine 19 units 03/09/25 21:00 03/10/25 21:50 Insulin Glargine (*Bkc) 100 Units/Ml SUB-Q 19 units HS JAIME Administration Loperamide HCl 2 mg 03/09/25 18:31 Loperamide Hcl 2 Mg Capsule PO DAILY PRN Loose Stool Loratadine 10 mg 03/09/25 21:00 03/10/25 21:44 Loratadine 10 Mg Tablet PO 10 mg HS JAIME Administration Melatonin 3 mg 03/09/25 22:05 03/10/25 21:43 Melatonin 3 Mg Tablet PO 3 mg HS JAIME Administration Metoprolol Succinate 100 mg 03/09/25 21:00 03/10/25 21:43 Metoprolol Succinate Ext Rel 100 Mg Tabcr PO 100 mg Q12HR JAIME Administration Miconazole Nitrate 1 applic 03/10/25 09:00 03/10/25 09:26 Miconazole Nitrate 2% Cream 30 Gm Tube TOPICAL 1 applic DAILY JAIME Administration Multivitamins/Minerals 1 tab 03/10/25 09:00 03/10/25 09:26 Multivitamins /C Lutein (Centrum Silver) Tablet *Bkc PO 1 tab DAILY JAIME Administration Ondansetron HCl 4 mg 03/09/25 16:22 Ondansetron Inj 4 Mg/2 Ml Vial IV PUSH Q4H PRN Nausea Oxybutynin Chloride 30 mg 03/10/25 21:00 03/10/25 21:44 Oxybutynin Chloride Xl 5 Mg Tab.Er.24 PO 30 mg HS JAIME Administration Pantoprazole Sodium 40 mg 03/10/25 09:00 03/10/25 09:26 Pantoprazole 40 Mg Tablet PO 40 mg QAM JAIME Administration Sacubitril/Valsartan 1 tab 03/09/25 21:00 03/10/25 21:43 Sacubitril/Valsartan 24-26 Mg Tablet PO 1 tab Q12HR JAIME Administration Spironolactone 12.5 mg 03/10/25 09:00 03/10/25 09:26 Spironolactone 12.5 Mg Tablet PO 12.5 mg QAM JAIME Administration Venlafaxine HCl 75 mg 03/09/25 21:00 03/10/25 21:44 Venlafaxine Hcl Xr 75 Mg Cap.Er.24h PO 75 mg HS JAIME Administration Radiology Results: ITS Impressions Chest X-Ray 03/09/25 14:13 Impression: CHF Venous Doppler Study 03/10/25 14:18 Impression: Negative for DVT. Labs Labs: Laboratory Results - last 24 hr 03/10/25 03/10/25 03/10/25 08:09 11:47 16:40 POC Capillary Glucose 181 H 211 H 166 H 03/10/25 19:43 POC Capillary Glucose 226 H Quality VTE Prophylaxis VTE prophylaxis: pharmacologic ordered
[2025-03-11 07:36] LABS: Hematocrit 42.7 % (37.0-47.0); Hemoglobin 13.7 g/dL (12.0-15.0); Immature Granulocyte Percent A 0.2 % (0-0.5); Lymphocytes Absolute Auto 1.31 K/mm3 (0.9-3.2); Mean Corpuscular HGB Conc 32.1 g/dl (32-36); Mean Corpuscular Hemoglobin 30.9 pg (26-34); Mean Corpuscular Volume 96.4 fl (80-100); Nucleated Red Blood Cells Absolute Auto 0.000 K/mm3 (0.0-0.012); Nucleated Red Blood Cells Perc 0.0 % (0.0-0.2); Platelet Count Result 154 k/mm3 (150-375); Red Blood Count 4.43 M/mm3 (4.2-5.4); White Blood Count 5.5 K/mm3 (4.5-10.0)
[2025-03-11 07:48] LABS: Alanine Aminotransferase 23 U/L (6-35); Albumin Level 3.5 g/dL (3.5-5.1); Alkaline Phosphatase 71 U/L (38-126); Anion Gap 4 mmol/L (4-12); Aspartate Amino Transferase 36 U/L (14-36); Bilirubin,Total 0.9 mg/dL (0.2-1.3); Blood Urea Nitrogen 30 mg/dL (7-17); Calcium 9.4 mg/dL (8.4-10.2); Carbon Dioxide 32 mmol/L (22-30); Chloride 102 mmol/L (98-107); Estimated Glomerular Filt Rate 43; Glucose 132 mg/dL (65-110); Potassium 3.9 mmol/L (3.4-5.0); Sodium 138 mmol/L (137-145); Total Protein 6.4 g/dL (6.3-8.2)
[2025-03-11] MEDS: MULTIVITAMINS /C LUTEIN (CENTRUM SILVER) TABLET *BKC 1 TAB PO (09:27)
[2025-03-11] MEDS: SACUBITRIL/VALSARTAN 24-26 MG TABLET 1 TAB PO ×2 (09:27→21:18)
[2025-03-11] MEDS: CLOPIDOGREL BISULFATE 75 MG TABLET PO (09:27)
[2025-03-11] MEDS: FUROSEMIDE INJ 40 MG/4 ML VIAL IV PUSH (09:27)
[2025-03-11] MEDS: PANTOPRAZOLE 40 MG TABLET PO (09:27)
[2025-03-11] MEDS: METOPROLOL SUCCINATE EXT REL 100 MG TABCR PO ×2 (09:27→21:14)
[2025-03-11] MEDS: MICONAZOLE NITRATE 2% CREAM 30 GM TUBE 1 APPLIC TOPICAL (09:27)
[2025-03-11] MEDS: APIXABAN 5 MG TABLET PO ×2 (09:27→21:13)
[2025-03-11] MEDS: INSULIN ASPART (*BKC) 100 UNITS/ML SUB-Q (12:23)
[2025-03-11] MEDS: FUROSEMIDE 20 MG TABLET PO (16:57)
[2025-03-11] MEDS: ATORVASTATIN 40 MG TABLET 80 MG PO (21:13)
[2025-03-11] MEDS: LORATADINE 10 MG TABLET PO (21:14)
[2025-03-11] MEDS: MELATONIN 3 MG TABLET PO (21:14)
[2025-03-11] MEDS: oxyBUTYnin CHLORIDE XL 5 MG TAB.ER.24 30 MG PO (21:17)
[2025-03-11] MEDS: VENLAFAXINE HCL XR 75 MG CAP.ER.24H PO (21:19)
[2025-03-11] MEDS: INSULIN GLARGINE (*BKC) 100 UNITS/ML 19 UNITS SUB-Q (21:20)
[2025-03-12] VITALS (8 sets, daily range): BP systolic 126–138; BP diastolic 24–57; PULSE 67–76; RESP 16–18; TEMP 36.3–36.8; O2SAT 97–100
[2025-03-12 04:41] LABS: Hematocrit 43.8 % (37.0-47.0); Hemoglobin 14.3 g/dL (12.0-15.0); Immature Granulocyte Percent A 0.2 % (0-0.5); Lymphocytes Absolute Auto 1.33 K/mm3 (0.9-3.2); Mean Corpuscular HGB Conc 32.6 g/dl (32-36); Mean Corpuscular Hemoglobin 30.8 pg (26-34); Mean Corpuscular Volume 94.4 fl (80-100); Nucleated Red Blood Cells Absolute Auto 0.000 K/mm3 (0.0-0.012); Nucleated Red Blood Cells Perc 0.0 % (0.0-0.2); Platelet Count Result 169 k/mm3 (150-375); Red Blood Count 4.64 M/mm3 (4.2-5.4); White Blood Count 6.0 K/mm3 (4.5-10.0)
[2025-03-12 05:08] LABS: Alanine Aminotransferase 25 U/L (6-35); Albumin Level 3.5 g/dL (3.5-5.1); Alkaline Phosphatase 72 U/L (38-126); Anion Gap 6 mmol/L (4-12); Aspartate Amino Transferase 36 U/L (14-36); Bilirubin,Total 0.7 mg/dL (0.2-1.3); Blood Urea Nitrogen 31 mg/dL (7-17); Calcium 9.3 mg/dL (8.4-10.2); Carbon Dioxide 30 mmol/L (22-30); Chloride 100 mmol/L (98-107); Estimated Glomerular Filt Rate 43; Glucose 129 mg/dL (65-110); Potassium 3.8 mmol/L (3.4-5.0); Sodium 136 mmol/L (137-145); Total Protein 6.3 g/dL (6.3-8.2)
--- NOTE | 2025-03-12 08:09 | P.DS_ITS ---
DS: Admitting Diagnosis Discharge Date 03/12/2025 Admitting Diagnosis Acute hypoxia, CHF exacerbation DS: Discharge Diagnosis Discharge Diagnosis (1) Acute hypoxic respiratory failure: Code(s): J96.01 - Acute respiratory failure with hypoxia Status: Acute Assessment and Plan: Sudden onset of shortness of breath post nap that occurred the day of admission, 03/09. CXR showed CHF. Has history of same. Initially 89% on room air per EMS, improved with Decadron and DuoNeb to 90% on room air. Placed on supplemental O2 and now maintaining O2 sat greater than 92%. Plan for diuresis, see plan below. No current concern for infectious etiology. * Symptoms: SOB * SpO2: 97% on 1L NC * Suspected cause: CHF exacerbation * EKG: normal rate, widened QRS, prolonged QT * Chest XR: CHF * 03/11: 93% on room air * Continue diuresis (2) CHF exacerbation: Qualifiers: Heart failure type: unspecified Qualified Code(s): I50.9 - Heart failure, unspecified Code(s): I50.9 - Heart failure, unspecified Status: Acute Assessment and Plan: Patient has a history of congestive heart failure. Current symptoms concerning for CHF exacerbation. Reviewed chart, previous echo completed in November of 2024. This showed a mildly dilated LV with normal systolic function, estimated EF 60- 65%, severe aortic stenosis and severe aortic regurgitation, mild MV regurgitation, LA severely dilated. She reports compliance with her home diuresis, Lasix 20 mg b.i.d. as needed. * start IV diuresis, Lasix 40 mg IV b.i.d. Hold home Lasix. Continue spironolactone. * monitor I&Os daily weights * trend renal function * Continue diuresis * Slightly edematous in LE but greatly improved * Switch back to oral Lasix tonight (3) Edema of right lower extremity: Code(s): R60.0 - Localized edema Status: Acute Assessment and Plan: Patient has 1+ pitting edema to the right lower extremity, no edema appreciated in the left lower extremity. She reports this has been ongoing for weeks and has previously had blistering associated with it. No rales currently. DP pulse is difficult to palpate on exam. Has history of PVD. Hyperpigmentation and petechiae to the right lower extremity noted. Patient is on Eliquis. * check ultrasound of the right lower extremity -negative for DVT (4) Atrial fibrillation: Qualifiers: Atrial fibrillation type: unspecified chronic Qualified Code(s): I48.20 - Chronic atrial fibrillation, unspecified Code(s): I48.91 - Unspecified atrial fibrillation Status: Chronic Assessment and Plan: History of AFib. Reviewed EKG completed in the ED, showing electronic ventricular pacemaker with a rate of 69. Stable. * continue home medications including metoprolol 100 mg b.i.d. and Eliquis b.i.d.. (5) T2DM (type 2 diabetes mellitus): Qualifiers: Diabetes mellitus complication status: without complication Diabetes mellitus salvage determiner insulin use: with salvage determiner use Qualified Code(s): E11.9 - Type 2 diabetes mellitus without complications; Z79.4 - buttermaker continuous churn (current) use of insulin Code(s): E11.9 - Type 2 diabetes mellitus without complications Status: Chronic Assessment and Plan: * hypoglycemia protocol * POC blood glucose ACHS * home medication: Hold Ozempic (NF). Hold Tresiba U-200 24 units daily, reduced by 20% as glargine 19 units HS. * correct regimen ordered - low/high dose TIDWM * A1C 6.9% in March of 2024 (6) Hypertension: Qualifiers: Hypertension type: primary hypertension Qualified Code(s): I10 - Essential (primary) hypertension Code(s): I10 - Essential (primary) hypertension Status: Chronic Assessment and Plan: * chronic, currently 151/59, stable * continue home medications: Entresto * monitor Plan Diet: Heart healthy GI Prophylaxis: N/a DVT Prophylaxis: Eliquis IV fluids: None, diuresing Lines/Tubes: Peripheral IV Code Status: Full code DS: Summary Hospital Course Reason for hospitalization: Shortness of breath, lower extremity swelling Hospital Course: Per HPI: 84 y/o F with PMH of CHF, PVD, pacemaker, myocardial infarction, asthma, hypertension, hyperlipidemia, atrial fibrillation, DVT, coronary artery disease, and diabetes presents here with shortness of breath. The patient presents here from [facility] via EMS for further evaluation of shortness of breath. The patient reports she woke up from her nap today feeling short of breath. Denies cough, weight gain, congestion, fever, chills, or rhinorrhea. She does report her right lower extremity has been more edematous over the last few weeks, however no longer having blistering. Per EMS, upon their arrival she was 89% on room air. While in route to the hospital they gave her a dose of Decadron IV and a DuoNeb. The patient reported subjective improvement upon re-evaluation in the emergency department. However she arrived 90% on room air and remained tachypneic. She has a past medical history significant for congestive heart failure with chronic edema in her bilateral lower extremities and asthma. She reports compliance with her Lasix and Entresto. Initial VS at presentation: 98? F, HR 70, RR 33, 153/41, 90% on room air. Now 97% on 2L NC. ED workup showed: WBC 3.4, no anemia, no significant electrolyte derangements, creatinine 1.01 and GFR 52, glucose 187, BNP 3570. CXR showed CHF. EKG showed electronic ventricular pacemaker, rate 69. Hospital course: Venous Doppler ultrasound of the left lower extremity was ordered and was negative for acute DVT. Edema continued to improve throughout hospitalization. Kiya hypoxic on initial presentation but immediately improved with diuresis. On 03/10 she is able to be remain on room air with appropriate oxygen saturations. Diuresis was continues on hospitalization in on 03/12, patient did not appear overtly fluid overloaded on exam and remained afebrile without any oxygen supplementation. Lung blair were clear to auscultation and patient was ready to be discharged. Home health therapy was initiated and patient is otherwise hemodynamically stable for discharge back to her assisted living facility. She feels as though she is very ready to go home at this time. Plan for discharge at this time. Status at Discharge Functional status at discharge: uses cane/walker Overall status at discharge: patient is back to baseline Time Spent with Patient Time attestation: Total time spent providing and/or coordinating discharge services: 34 Exam Narrative: Const: General: comfortable and no acute distress Other: , female, elderly, nontoxic appearance HENMT: Face/Nose/Sinus: Normal nares present Mouth: Yes moist mucous membranes Eyes: General: appearance normal, both eyes and all related structures Sclera: sclerae normal Pupils: Equal, round and reactive pupils present EOM: EOMs intact bilaterally Resp: Effort & Inspection: normal respiratory effort Auscultation: clear to auscultation bilaterally Cardio: Rate: regular rate Rhythm: regular rhythm Other: + murmur. GI: Other: Abdomen soft, nondistended, nontender. Normoactive bowel sounds in all quadran ts. Skin: General skin exam: no rashes or lesions noted Other: has small <0.5 cm abrasion to the 5th toe, no sings of infection. petechiae and hyperpigmentation noted to the RLE. Neuro: Cranial nerves: Yes Equal, round and reactive pupils present Speech: normal speech Motor exam (neuro): 5/5 motor strength present throughout Sensory Exam: normal sensation Other: A&O x4 Extrem: Other: Minimal edema to the right and left LE. DP pulse 1+ on the LLE and barely palpable on the RLE. 1+ edema to the RLE. Psych: Mental Status: mental status grossly normal Affect: normal affect Other: Good insight and judgment, pleasant DS: Data Data Completed and Pending Labs on day of discharge: Labs from last 24 hours 03/12/25 03/12/25 03/11/25 07:47 04:16 19:38 WBC 6.0 RBC 4.64 Hgb 14.3 Hct 43.8 MCV 94.4 MCH 30.8 MCHC 32.6 RDW 15.1 H Plt Count 169 MPV 9.7 Immature Gran % (Auto) 0.2 Neut % (Auto) 61.6 Lymph % (Auto) 22.1 [place] % (Auto) 11.0 H Eos % (Auto) 4.3 Baso % (Auto) 0.8 Lymph # (Auto) 1.33 [place] # (Auto) 0.7 H Eos # (Auto) 0.3 Baso # (Auto) 0.1 Abs Immat Gran (auto) 0.01 Absolute Neuts (auto) 3.7 Absolute Nucleated RBC 0.000 Nucleated RBC % 0.0 Sodium 136 L Potassium 3.8 Chloride 100 Carbon Dioxide 30 Anion Gap 6 BUN 31 H Creatinine 1.19 H Estim Creat Clear Calc Not Reportable Estimated GFR 43 L Glucose 129 H POC Capillary Glucose 77 129 H Calcium 9.3 Total Bilirubin 0.7 AST 36 ALT 25 Alkaline Phosphatase 72 Total Protein 6.3 Albumin 3.5 03/11/25 03/11/25 16:51 11:53 WBC RBC Hgb Hct MCV MCH MCHC RDW Plt Count MPV Immature Gran % (Auto) Neut % (Auto) Lymph % (Auto) [place] % (Auto) Eos % (Auto) Baso % (Auto) Lymph # (Auto) [place] # (Auto) Eos # (Auto) Baso # (Auto) Abs Immat Gran (auto) Absolute Neuts (auto) Absolute Nucleated RBC Nucleated RBC % Sodium Potassium Chloride Carbon Dioxide Anion Gap BUN Creatinine Estim Creat Clear Calc Estimated GFR Glucose POC Capillary Glucose 132 H 220 H Calcium Total Bilirubin AST ALT Alkaline Phosphatase Total Protein Albumin Discharge Plan Discharge Attending physician on discharge: Arthur Villatoro Consulting providers: Morteza Pollack Discharging Clinician: Morteza Pollack Patient Disposition: Home with Home Health Service Activity: as tolerated Diet: heart healthy Discharge Instructions: Per Care Coordination. Sent referral to [facility] for RN, PT, OT. Awaiting acceptance. [facility] will call to arrange a time to come to your apartment for therapy. [phone] Discharge disposition: Home with home health therapy Take medications as prescribed Monitor blood pressures Take caution while standing, rising, or moving Change positions slowly taking a break between each position change If you standing feel dizzy sit back down and take a break Encouraged to continue with yearly vaccinations Return to the emergency department if you develop sudden shortness of breath, chest pain, nausea, vomiting, upset stomach or intractable diarrhea Return to the emergency department if you develop fever greater than 101.5 Follow-up with the primary care physician within 1-2 weeks [address] you for choosing [facility] for your healthcare needs Patient Instructions: Antibiotic Form, Heart Failure (GEN), Blood Thinners (GEN) Patient Language: Bulgarian Stand Alone Forms: General Discharge Information Follow-up/Referrals: Annie,Gerri Hernandez, RIDING TEACHER [Primary Care Provider, Unknown] Discharge Medications: Continued atorvastatin 80 mg Tablet 80 mg PO HS metoprolol succinate 100 mg Tablet Extended Release 24 Hr 100 mg PO BID clopidogrel 75 mg Tablet 75 mg PO DAILY furosemide 20 mg Tablet 20 mg PO BID PRN (Reason: lower leg swelling) Hair,Skin and Nails Tablet 2 tablet PO DAILY alprazolam 0.25 mg tablet 0.25 mg PO DAILY PRN (Reason: anxiety) buspirone 5 mg tablet 5 mg PO BID A Thru Z Select 50Plus Formula 0.4 mg-300 mcg- 250 mcg tablet 1 tablet PO DAILY All Day Allergy (cetirizine) 10 mg capsule 10 mg PO HS clobetasol 0.05 % solution 1 applic topical BID ketoconazole 2 % cream 1 applic topical DAILY loperamide [Anti-Diarrheal (loperamide)] 2 mg capsule 2 mg PO DAILY PRN (Reason: loose stool) nystatin 100,000 unit/gram powder 1 applic topical BID Zoryve 0.3 % cream 1 applic topical DAILY Eliquis 5 mg tablet 5 mg PO BID sacubitril-valsartan [Entresto] 24-26 mg tablet 1 tablet PO BID oxybutynin ER 15 mg tablet 30 mg PO HS Ozempic 2 mg/dose (8 mg/3 mL) pen injector 2 mg subcut WEEKLY Patient Comments: Wednesday pantoprazole 40 mg tablet,delayed release (DR/EC) 40 mg PO QAM spironolactone 25 mg tablet 12.5 mg PO QAM insulin degludec [Tresiba FlexTouch U-200] 200 unit/mL (3 mL) insulin pen 24 unit subcut DAILY venlafaxine [Effexor XR] 75 mg capsule,extended release 24hr 75 mg PO HS Date of admission: 03/10/25 15:28 Primary Care Provider: Annie,Gerri Hernandez Admitting Provider: Hubert Sanchez Attending physician on admission: Hubert Sanchez Condition: Stable Quality VTE Prophylaxis VTE prophylaxis: pharmacologic ordered
[2025-03-12] MEDS: APIXABAN 5 MG TABLET PO (08:22)
[2025-03-12] MEDS: METOPROLOL SUCCINATE EXT REL 100 MG TABCR PO (08:22)
[2025-03-12] MEDS: CLOPIDOGREL BISULFATE 75 MG TABLET PO (08:22)
[2025-03-12] MEDS: FUROSEMIDE 20 MG TABLET PO (08:22)
[2025-03-12] MEDS: PANTOPRAZOLE 40 MG TABLET PO (08:23)
[2025-03-12] MEDS: MICONAZOLE NITRATE 2% CREAM 30 GM TUBE 1 APPLIC TOPICAL (08:23)
[2025-03-12] MEDS: MULTIVITAMINS /C LUTEIN (CENTRUM SILVER) TABLET *BKC 1 TAB PO (08:23)
[2025-03-12] MEDS: SACUBITRIL/VALSARTAN 24-26 MG TABLET 1 TAB PO (08:23)
== END 2025-03-12 17:30 | DRG 291 ==
LOC: ANHED 17:12 → ANH2MED 17:28
PROVIDERS: Emergency Medicine; Admitting Provider General Practice; Emergency Provider Emergency Medicine; Visit Provider Physician Assistant
DX: I11.0 Hypertensive heart disease with heart failure (principal); J96.01 Acute respiratory failure with hypoxia; I48.20 Chronic atrial fibrillation, unspecified; I50.9 Heart failure, unspecified; I25.10 Atherosclerotic heart disease of native coronary artery without angina pectoris; E11.9 Type 2 diabetes mellitus without complications; I73.9 Peripheral vascular disease, unspecified; I35.0 Nonrheumatic aortic (valve) stenosis; E78.5 Hyperlipidemia, unspecified; Z86.718 Personal history of other venous thrombosis and embolism; Z95.2 Presence of prosthetic heart valve; Z95.5 Presence of coronary angioplasty implant and graft; Z79.4 Long term (current) use of insulin; I25.2 Old myocardial infarction; Z95.0 Presence of cardiac pacemaker
CPT/HCPCS: 36415; 71046; 80053; 82948; 83880; 85025; 93005; 93971; 96374; 97110; 97116; 97161; 97165; 99285; A9270; G0378; J1815; J1938

== ENCOUNTER 2025-03-20 15:59 | Emergency (ER) | payer MEDICARE, BC, SELFPAY ==
--- OUTSIDE RECORDS SUMMARY | 2025-01-25 08:00 | XMS_ITS | Continuity of Care Document ---
Author Organization [facility] Address [address] [place] [address] Phone Care Team Providers Care Data Communications Technician Name Role Phone Gabbi SPRAGUE, [facility], [facility] Unavailable Unavailab le Allergies, Adverse Reactions, Alerts Substance Reaction Status Criticality No Known Allergies Active No Inform ation Medications Medication Instructions Dosage Effective Dates (start - stop) Status Comments venlafaxine ER 150 mg capsule,extended release 24 hr take 1 capsule by oral route every day 150 MG - Active atorvastatin 80 mg tablet take 1 tablet by oral route every day 80 MG - Active clopidogrel 75 mg tablet take 1 tablet by oral route every day 75 MG - Active Eliquis 5 mg tablet take 1 tablet by oral route 2 times every day 5 MG - Active Entresto 49 mg-51 mg tablet take 1 tablet by oral route 2 times every day 1.00 tablet - Active Farxiga 10 mg tablet take 1 tablet by oral route every day in the morning 10 MG - Active furosemide 20 mg tablet take 1 tablet by oral route every day 20 MG - Active metoprolol succinate ER 100 mg tablet,extended release 24 hr take 1 tablet by oral route every day 100 MG - Active spironolactone 25 mg tablet take 0.5 tablet by oral route every day 12.5 MG - Active cephalexin 500 mg capsule TAKE 1 CAPSULE BY MOUTH EVERY 8 HOURS - Active doxycycline hyclate 100 mg capsule TAKE 1 CAPSULE BY MOUTH TWICE DAILY FOR 10 DAYS DIRECTED - Active amoxicillin 875 mg tablet TAKE 1 TABLET BY MOUTH EVERY 12 HOURS - Active buspirone 5 mg tablet TAKE 1 TABLET BY MOUTH TWICE DAILY NEEDED - Active alprazolam 0.25 mg tablet TAKE 1 TABLET BY MOUTH EVERY DAY NEEDED FOR SEVERE ANXIETY - Active Procedures Procedure Date Complex e/m visit add on OFFICE/OUTPATIENT VISIT, EST ELECTROCARDIOGRAM, COMPLETE EXTREMITY STUDY TTE W/DOPPLER, COMPLETE Advance Directives Directive Yes / No Effective Date File Name No Information Encounters Encounter Description Practice Location Reason(s) For Visit Diagnoses Date Provider Providers Copied on Encounter OFFICE/OUTPAT IENT VISIT, EST [facility], [address] [place] [address], [id number] , tel: [phone] [facility] Follow Up of cardiology exam (chief complaint)r ight ankle swelling (chief complaint)h os. visit 2 months ago for falll (chief complaint) CADCardiomyopathyA [id number] Jan- 5 Gabbi Phillips. [facility] [place], [place], [id number] , . tel: [phone] Referring Provider: Alan Seo, [facility] [address], [place], [address] . tel:[phone] [facility], [address] [place] [address], [id number] , [facility]: [phone] [facility] [address] [facility] [place], [id number] , . tel: [phone] Referring Provider: Alan Seo, [address], [place], [address] . tel:[phone] [facility], [address] [place] [address], [id number] , tel: [phone] [facility] [place] No Information 5 Gabbi Phillips. [address] [place], [place], [id number] , . tel: [phone] Referring Provider: Alan Seo, [address], [place], [address] . tel:[phone] [facility], [address] [place] [address], [id number] , tel: [phone] [facility] [place] No Information 5 Gabbi Phillips. [address] [place], [place], [id number] , . tel: [phone] [facility], [address] [place] [address], [id number] , tel: [phone] [facility] [place] No Information 5 Gabbi Phillips. [address] [place], [place], [id number] , . tel: [phone] Family History Family Member Type Diagnosis Age At Onset Father Problem (finding) Myocardial infarction ( Cause Of ) Payers Payer name Insurance type Covered libertarian ID [employer](s) [place] MED[employer]ARE CI [id number] Social History Type Description Quantity Date Captured Comments Alcohol Use Details Unknown Caffeine Use Details Unknown Tobacco Use Status No Information Smoking Status No Information Sex Female Vital Signs Date / Time: Height Weight BMI Pulse Rate Blood Pressure Temperature Respiratory Rate Body Surface Area Head Circumference Head Circ. Percentile Wt./Jj. Percentile BMI percentile Pulse Ox Inhaled Ox 2:19 PM 87.997 kg (194.00 lbs) 71 /min 145/97 mm[Hg] 16 /min 99 % Chief Complaint And Reason For Visit From encounter dated '01/25/2025 14:00'. Follow Up of cardiology exam (chief complaint) right ankle swelling (chief complaint) hos. visit 2 months ago for falll (chief complaint) Reason For Referral Reason For Referral No Information Plan Of Treatment Date Type Action Status Appointment VickyLizabeth BOOKED Future Order: Lab Order Basic Me tabolic Panel BMP ([id number]), Ordered on: Ordered History Of Present Illness Encounter Date Complaint History Of Prese nt Illness Follow Up of cardiology exam right ankle swelling hos. visit 2 months ago for fall l Functional Status Date Functional Assessmen t No Information Instructions Date Instruction Additional Infor mation No Information Assessments Type Assessment Date assessment CAD assessment Cardiomyopathy assessment A fib assessment HTN assessment SSS assessment CHF Patient Care Teams Name Effective Dates (start - stop) Status Members No Information
--- NOTE | ~2025-03-20 | CT_ITS ---
EXAMINATION: CT brain wo odilon, 03/20/2025 16:23 [facility] HISTORY: fall COMPARISON: No comparisons available. Technique: Axial images obtained of the brain without contrast. One or more of the following dose reduction techniques were used: automated exposure control, adjustment of the mA and/or kV according to patient size, use of iterative reconstruction technique. Findings: Remote right cerebellar lacunar infarcts. No acute infarct or hemorrhage. No midline shift or mass effect. No extra-axial fluid collections Mastoid air cells unremarkable. Sinuses and orbits unremarkable. No acute fracture. No significant facial or scalp soft tissue swelling evident. No radiopaque foreign body is seen. Impression: 1.No acute intracranial abnormality. Reviewed, dictated and finalized at location [facility] Impression: 1.No acute intracranial abnormality.
--- NOTE | ~2025-03-20 | CT_ITS ---
EXAMINATION: CT cervical spine wo con COMPARISON: None HISTORY: fall TECHNIQUE: Axial images were obtained through the spine without IV contrast. Coronal, sagittal reconstruction images were obtained from the axial views. CT scan performed using dose optimization techniques including the following automated exposure control; adjustment of mA and/or kV; use of iterative reconstruction technique. Automatic exposure control was used to reduce radiation dose. Permanent radiation dose record is archived to PACS. FINDINGS: Grade 1 anterolisthesis of C4 on C5, no fracture identified. Severe loss of disc height at C5-6 and C6-7 with moderate to severe canal and foraminal stenosis Soft tissues unremarkable. Impression: No acute abnormality. Reviewed, dictated and finalized at location [facility] Impression: No acute abnormality.
[2025-03-20 16:00] VITALS: BP 145/54; PULSE 94; RESP 16; TEMP 37
--- OUTSIDE RECORDS SUMMARY | 2025-03-20 16:49 | XMS_ITS | Clinical Summary ---
Author Organization [facility] Address [facility] [place] [address] Care Team Providers Care Knit Goods Cutter Hand Name Role Phone Gerri Valencia FLOAT NURSE Primary Care Provider [phone] Allergies No known active allergies Medications Multiple Vitamins-Minera ls (HAIR VITAMINS OR) Take 2 capsules by mouth daily. Active loperamide (IMODIUM A-D) 2 MG tablet Take 1 tablet every day by oral route as needed. Active LYCOPENE OR Take 1 tablet by mouth daily. Active metoprolol succinate ER (TOPROL-XL) 100 MG 24 hr tablet 5 Active nitroglycerin (NITROSTAT) 0.[address] 1 tablet every day by sublingual route as needed for 30 days. 5 Active oxybutynin XL (DITROPAN XL) 15 MG 24 hr tablet Take 2 tablets every day by oral route at bedtime. Active pantoprazole EC (PROTONIX) 40 MG tablet Take 1 tablet every day by oral route. Active Roflumilast (ZORYVE) 0.3 % Cream Active ENTRESTO 24-26 MG tablet Take 1 tablet twice a day by oral route. Active OZEMPIC 2 mg/dose injection (PEN) Inject 2 mg every week by subcutaneous route as directed for 28 days. 5 Active spironolactone (ALDACTONE) 25 MG tablet 5 Active traMADol (ULTRAM) 50 MG tablet Take 1-2 tablets every 8 hrs as needed for pain rated 6/10 or higher 4 Active venlafaxine (EFFEXOR) 75 MG tablet Take 2 tablets every day by oral route in the morning. Active Active Problems Problem Noted Date Diagnosed Date Atherosclerosis of coronary artery 02/16/2025 Overview (02/16/2025): noncritical CAD per HC in 2007December 20, 2023 Recent NSTEMI with complications of heart failure, reduce EF, moderate mitral stenosis and regurgitation, severe pulmonary hypertension, aortic valve replacement and regurgitation, persistent atrial fibrillation CKD (chronic kidney disease) stage 3, GFR 30-59 ml/min 02/16/2025 Overview (02/16/2025): Drugs are renally dosed and we will continue to avoid renal toxic drugs. Estimated Creatinine Clearance: 41.9 mL/min (A) (by C-G formula based on SCr of 1.47 mg/dL (H)). CREATININE Date Value Ref Range Status 12/16/2023 1.47 (H) 0.51 - 0.95 mg/dL Final 12/13/2023 1.45 (H) 0.51 - 0.95 mg/dL Final 12/06/2023 1.45 (H) 0.51 - 0.95 mg/dL Final Morbid obesity 02/16/2025 Injury of right leg 01/12/2025 Hallucinations 10/05/2024 Type 2 diabetes mellitus with hyperglycemia 09/15 Edema of lower extremity 08/29/2024 Cellulitis of right lower limb 08/21/2024 Localized swelling of right lower leg 08/21/2024 Obesity 08/21/2024 Seborrheic dermatitis of scalp 07/27/2024 Fear of other medical care 07/20/2024 Panic disorder 07/20/2024 Discoloration of skin 02/24/2024 Depression, recurrent 01/27/2024 Wheezing 01/20/2024 Abnormal gait due to muscle weakness 01/12/2024 Chronic congestive heart failure 01/11/2024 Chronic kidney disease 01/11/2024 Gastroesophageal reflux disease without esophagi tis 01/11/2024 Generalized anxiety disorder 01/11/2024 History of arterial embolism 01/11/2024 History of myocardial infarction 01/11/2024 Primary hypertension 01/11/2024 Overactive bladder 01/11/2024 Skin lesion 01/11/2024 Type 2 diabetes mellitus 01/11/2024 Overview (02/16/2025): December 20, 2023 Lab Results Component Value Date A1C 7.9 (H) 12/16/2023 MEDS: Tresiba 24 units daily, empagliflozin 25mg daily, ozempic 1mg Blood sugars reviewed, morning blood sugars have had some low asymptomatic readings in the morning, with 60-70. Plan: Decrease Tresiba to 22 units Nocturia 12/20/2023 Overview (02/16/2025): December 20, 2023 Stable on current regimen MEDS: oxybutynin. 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 MEDS: entresto, furosemide, metoprolol Appears euvolemic today. No shortness of breath at rest or activity. Depressive disorder 06/24/2020 Overview (02/16/2025): December 20, 2023 With anxiety and insomnia. Feels her mood is stable with current regimen. She has used her PRN hydroxyzine four times in the past month. Current regimen includes Effexor XR 150mg QAM and 75mg QHS, Tylenol-PM for insomnia, though favor reduction given the anticholinergic side effects, she feels this is helpful with her sleep and does not wish to discontinue or taper off. Hyperlipidemia 06/24/2020 Overview (02/16/2025): December 20, 2023 Atorvastatin Longstanding persistent atrial fibrillation 03/18 Overview (02/16/2025): Added automatically from request for surgery [id number] s/p insertion of PPM and AV risa ablation. Pacemaker 04/09/2020 Permanent atrial fibrillation 03/20/2020 Overview (02/16/2025): S/p AVJ on 04/15/[address] Gasca. 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 Overview (02/16/2025): December 20, 2023 MEDS: APAP PRN, Tizanidine, PRN tramadol with 1x use in past month Blepharitis, bilateral 05/30/2015 Overview (02/16/2025): December 20, 2023 R>L, will start warm compresses today and start ocusoft scrubs daily Dry eyes, bilateral 05/30/2015 Posterior vitreous detachment, both eyes 016 NSTEMI (non-ST elevated myocardial infarction) 0 07/06/2014 Moderate persistent asthma without complication 09/11/2013 HTN (hypertension), benign 01/08/2011 Pseudophakia, both eyes 12/26/2010 Overview (02/16/2025): bilateral S/P AVR (aortic valve replacement) 12/09/2010 Encounters Date Type Department Care Team Description 02/16/2025 2:00 PM CDT Office Visit [facility] - [address], [address] [place] [address] Madhavi Cheek MD Establish Care ( halluciations/) 02/16/2025 Travel from Last 3 Months Social History Tobacco Use Types Packs/Day Years Used Date Smoking Tobacco: Never Smokeless Tobacco: Never Tobacco Cessation:Counseling Given: Not Answered Alcohol Use Standard Drinks/Week Comments Yes 0 (1 standard drink = 0.6 oz pur e alcohol) social Comments Unknown Sex and Gender Information Value Date Recorded Sex Assigned at Not on file Legal Sex Female 11:28 AM CDT Gender Identity Not on file Sexual Orientation Not on file Last Filed Vital Signs Vital Sign Reading Time Taken Comments Blood Pressure 111/49 02/16/2025 2:02 PM CDT Pulse 71 02/16/2025 2:02 PM CDT Temperature 36.1 C (97 F) 02/16/2025 2:02 PM CDT Respiratory Rate - - Oxygen Saturation - - Inhaled Oxygen Concentration - - Weight 86.6 kg (191 lb) 02/16/2025 2:02 PM CDT Height 149.9 cm (4' 11) 02/16/2025 2:02 PM CDT Body Mass Index 38.58 02/16/2025 2:02 PM CDT Plan of Treatment Health Maintenance Due Date Last Done Comments ASCVD LDL 1941 ASCVD Statin 1941 Kidney Health Evaluation 1941 Diabetes: Retinopathy Eye Exam 08/15/1959 Annual Medicare Wellness Visit 2006 RSV Immunization or 60+ Years (1 - 1-dose 75+ series) 2016 PHQ-2 (Physician [place]) 05/17/2024 Hemoglobin A1C 06/17/2024 12/16/2023, 04/0 12/2023, 02/25/2023, Additional history exists Lipid Panel 12/20/2024 12/21/2023 COVID-19 Vaccine ( season) 2025 04/14/2024, 03/13/2021, 08/16/2020, Additional history exists Influenza Adult (#1) 2025 03/12/2023, 07/17/2019, 03/23/2019, Additional history exists DTaP, Tdap and Td Vaccines (3 - Td or Tdap) 12/06/2034 12/06/2024, 07/01/2015, 07/25/2010, Additional history exists Pneumococcal Vaccine: 50+ Years Completed 09/11/2016, 08/17/2016, 09/18/2014, Additional history exists Zoster Vaccines Completed 05/31/2018, 01/15, 05/17/2014 Dexa Scan (General) Completed 11/04/2018, 11/04/2018, 07/26/2015 Hepatitis A Vaccines Aged Out No long er eligible based on patient's age to complete this topic Meningococcal B Vaccine Aged Out No l onger eligible based on patient's age to complete this topic Meningococcal Vaccine Aged Out No theersa alize eligible based on patient's age to complete this topic RSV Immunizations Under 20 Months Aged Out No longer eligible based on patient's age to complete this topic Insurance MEDICARE Care Teams Knit Goods Cutter Hand Relationship Specialty Start Date End Date Gerri [place] [phone] PCP - General NURSE PRACTITIONER 02/16/25
--- NOTE | 2025-03-20 17:45 | ED.FALL ---
HPI - Fall General Chief Complaint: Fall Stated Complaint: fall Time Seen by Provider: 03/20/25 17:29 History of Present Illness HPI Narrative: Patient actually rolled out of bed and hit the ground, hitting her head, she has no loss of consciousness, nausea vomiting, focal numbness or weakness, no pain anywhere. She does have some slight soreness to her left eyebrow which is where she hit her head in the past and needed stitches. She is on with blood thinners Related Data Home Medications ?Medication ?Instructions ?Recorded ?Confirmed ?Last Taken ?Type atorvastatin 80 mg tablet 80 mg PO HS 03/20/24 03/09/25 Unknown History clopidogrel 75 mg tablet 75 mg PO DAILY 03/20/24 03/09/25 Unknown History furosemide 20 mg tablet 20 mg PO BID PRN lower leg swelling 03/20/24 03/09/25 Unknown History metoprolol succinate 100 mg 100 mg PO BID 03/20/24 03/09/25 Unknown History tablet,extended release 24 hr multivitamin with minerals 2 tablet PO DAILY 03/20/24 03/09/25 Unknown History (Hair,Skin and Nails tablet) apixaban 5 mg tablet (Eliquis) 5 mg PO BID 12/08/24 03/09/25 Unknown History insulin degludec 200 unit/mL (3 24 unit subcut DAILY 12/08/24 03/09/25 Unknown History mL) subcutaneous pen (Tresiba FlexTouch U-200 insulin) oxybutynin ER 30 mg PO HS 12/08/24 03/09/25 Unknown History pantoprazole 40 mg tablet,delayed 40 mg PO QAM 12/08/24 03/09/25 Unknown History release sacubitril 24 mg-valsartan 26 mg 1 tablet PO BID 12/08/24 03/09/25 Unknown History tablet (Entresto) semaglutide 2 mg/dose (8 mg/3 mL) 2 mg subcut WEEKLY 12/08/24 03/09/25 03/04/25 History subcutaneous pen injector (Ozempic) spironolactone 25 mg tablet 12.5 mg PO QAM 12/08/24 03/09/25 Unknown History venlafaxine 75 mg capsule,extended 75 mg PO HS 12/08/24 03/09/25 Unknown History release 24 hr (Effexor XR) alprazolam 0.25 mg tablet 0.25 mg PO DAILY PRN anxiety 03/09/25 03/09/25 Unknown History buspirone 5 mg tablet 5 mg PO BID 03/09/25 03/09/25 Unknown History cetirizine 10 mg capsule (All Day 10 mg PO HS 03/09/25 03/09/25 Unknown History Allergy (cetirizine)) clobetasol 0.05 % scalp solution 1 applic topical BID 03/09/25 03/09/25 Unknown History ketoconazole 2 % topical cream 1 applic topical DAILY 03/09/25 03/09/25 Unknown History loperamide 2 mg capsule 2 mg PO DAILY PRN loose stool 03/09/25 03/09/25 Unknown History (Anti-Diarrheal (loperamide)) lxvodgob-kqk-yjzut acid 0.4 1 tablet PO DAILY 03/09/25 03/09/25 Unknown History mg-lycopene 300 mcg-lutein 250 mcg tablet (A Thru Z Select 50 Plus Formula) nystatin 100,000 unit/gram topical 1 applic topical BID 03/09/25 03/09/25 Unknown History powder roflumilast 0.3 % topical cream 1 applic topical DAILY 03/09/25 03/09/25 Unknown History (Zoryve) Allergies Allergy/AdvReac Type Severity Reaction Status Date / Time No Known Allergies Allergy Verified 03/09/25 17:50 Review of Systems Review of Systems: All systems reviewed & are unremarkable except as noted in HPI and below PMFSH Past Medical History Medical History HLD (hyperlipidemia) Hypertension Peripheral vascular disease History of pacemaker Myocardial infarction Congestive heart failure Atrial fibrillation Coronary artery disease Deep vein thrombosis September 2024 Insulin dependent type 2 diabetes mellitus Surgical History Surgical History History of thrombectomy right groin DVT in September 2024 Aortic valve replaced Coronary artery disease status post coronary stent insertion 3 stents placed in 2022 Family History Family History Father Diabetes mellitus Other Heart disease Social History Social History Alcohol intake: never Substance use: never Substance use type: does not use Do You Feel Safe in your Home?: Yes Lack of Transportation: No Lack of Food: Never True Current Housing: I Have Housing Concerned About Future Housing: No Difficulty Paying Gas/Electric Bills: No Difficulty Paying for Meds: No Currently Unemployed: No Education: Decline to Answer Difficulty w/ Childcare or Family Care: No Living arrangements: assisted living Additional living arrangements comments: [facility] Spiritual care concerns: No Exam Narrative: EXAMINATION OF ORGAN SYSTEMS/BODY AREAS: Constitutional: Vital signs per nursing GENERAL:[No acute distress, non-toxic appearing.] HEAD: Tiny contusion left forehead EYES: EOMI, conjunctiva normal ENT: Hearing grossly intact LUNGS: Nonlabored breathing. HEART: [Regular rate and rhythm] ABD: [Soft], [nontender to palpation] EXT: Normal range of motion SKIN: [No rashes or lesions.] NEURO: [Alert. No gross focal sensory or strength deficits.] PSYCH: Normal affect Course Vital Signs Vital signs: Vital Signs Temperature 98.6 F 03/20/25 16:00 Pulse Rate 94 03/20/25 16:00 Respiratory Rate 16 03/20/25 16:00 Blood Pressure 145/54 H 03/20/25 16:00 Temperature 98.6 F 03/20/25 16:00 Pulse Rate 94 03/20/25 16:00 Respiratory Rate 16 03/20/25 16:00 Blood Pressure 145/54 H 03/20/25 16:00 MDM - Fall MDM Narrative Medical decision making narrative: Patient presenting here fall out of bed, she does not have any pain anywhere, on exam she has a tiny contusion to her left forehead. Denies any other complaints. CT head and C-spine thankfully negative for acute abnormality. Discussed with patient and family member at bedside, agreeable to outpatient management with return precautions Discharge Plan Discharge Clinical Impression: Head trauma Patient Disposition: Home Condition: Stable Instructions: Head Injury (ED) Additional Instructions: Please follow up with your doctor; you can always return for any further issues. Patient Language: Serbian Prescriptions: No Action atorvastatin 80 mg Tablet 80 mg PO HS metoprolol succinate 100 mg Tablet Extended Release 24 Hr 100 mg PO BID clopidogrel 75 mg Tablet 75 mg PO DAILY furosemide 20 mg Tablet 20 mg PO BID PRN (Reason: lower leg swelling) Hair,Skin and Nails Tablet 2 tablet PO DAILY alprazolam 0.25 mg tablet 0.25 mg PO DAILY PRN (Reason: anxiety) buspirone 5 mg tablet 5 mg PO BID A Thru Z Select 50Plus Formula 0.4 mg-300 mcg- 250 mcg tablet 1 tablet PO DAILY All Day Allergy (cetirizine) 10 mg capsule 10 mg PO HS clobetasol 0.05 % solution 1 applic topical BID ketoconazole 2 % cream 1 applic topical DAILY loperamide [Anti-Diarrheal (loperamide)] 2 mg capsule 2 mg PO DAILY PRN (Reason: loose stool) nystatin 100,000 unit/gram powder 1 applic topical BID Zoryve 0.3 % cream 1 applic topical DAILY Eliquis 5 mg tablet 5 mg PO BID sacubitril-valsartan [Entresto] 24-26 mg tablet 1 tablet PO BID oxybutynin ER 15 mg tablet 30 mg PO HS Ozempic 2 mg/dose (8 mg/3 mL) pen injector 2 mg subcut WEEKLY Patient Comments: Wednesday pantoprazole 40 mg tablet,delayed release (DR/EC) 40 mg PO QAM spironolactone 25 mg tablet 12.5 mg PO QAM insulin degludec [Tresiba FlexTouch U-200] 200 unit/mL (3 mL) insulin pen 24 unit subcut DAILY venlafaxine [Effexor XR] 75 mg capsule,extended release 24hr 75 mg PO HS Follow-up/Referrals: Annie,Gerri Hernandez, SUPPLIER MANAGER [Primary Care Provider, Unknown]
== END 2025-03-20 18:03 | disposition home or self-care (01) ==
LOC: ANHED 17:46
PROVIDERS: Emergency Provider Emergency Medicine
DX: S09.90XA Unspecified injury of head, initial encounter (principal); I50.9 Heart failure, unspecified; I11.0 Hypertensive heart disease with heart failure; I25.2 Old myocardial infarction; I48.91 Unspecified atrial fibrillation; E11.51 Type 2 diabetes mellitus with diabetic peripheral angiopathy without gangrene; I73.9 Peripheral vascular disease, unspecified; E78.5 Hyperlipidemia, unspecified; Z95.2 Presence of prosthetic heart valve; Z95.5 Presence of coronary angioplasty implant and graft; Z86.718 Personal history of other venous thrombosis and embolism; Z79.02 Long term (current) use of antithrombotics/antiplatelets; Z79.01 Long term (current) use of anticoagulants; Z79.85 Long-term (current) use of injectable non-insulin antidiabetic drugs; Z79.4 Long term (current) use of insulin; Z79.899 Other long term (current) drug therapy; W06.XXXA Fall from bed, initial encounter
CPT/HCPCS: 70450; 72125; 99284

== ENCOUNTER 2025-03-25 04:16 | Emergency (ER) | payer MEDICARE, BC, SELFPAY ==
--- NOTE | ~2025-03-25 | CT_ITS ---
CT HEAD NON-CONTRAST CT C-SPINE CT FACE Clinical History: fall on thinners, hit right forehead Comparison: CT brain 03/20/2025 Technique: Unenhanced axial images skull base to vertex. Coronal, sagittal reformats. Axial images thoracic inlet to skull base. Sagittal and coronal reformats. CT images acquired with automatic exposure control for dose reduction DLP: 832 mGy-cm Findings: Head: White matter changes from chronic microvascular ischemic disease is Sulci, ventricles: Unremarkable. No intracerebral hemorrhage. No evidence acute territorial infarct. No mass effect, midline shift, intra-/extra-axial fluid collection. Bony calvarium intact. Visualized paranasal sinuses: Clear. Mastoid air cells: Clear. C-spine: No acute fracture. Grade 1 anterolisthesis C4 on 5, C7 on T1, T1 on T2. Vertebral bodies normal height and alignment. Moderate degenerative changes. Prevertebral soft tissues within normal limits. Visualized lung apices: Interlobular septal thickening. Visualized thyroid: Unremarkable. No enlarged cervical nodes. Face: Nasal fractures. No other acute fractures. Leftward nasal septal deviation. IMPRESSION: HEAD: 1. No acute intracranial findings. C-SPINE: 1. No acute fracture. CT FACE: 1. Nasal fractures. Reviewed, dictated and finalized at location R. HEALTH ADMINISTRATOR IMPRESSION: HEAD: 1. No acute intracranial findings. C-SPINE: 1. No acute fracture. CT FACE: 1. Nasal fractures.
[2025-03-25 04:17] VITALS: BP 164/66; PULSE 73; RESP 18; TEMP 36.8; O2SAT 97
--- NOTE | 2025-03-25 04:28 | ED.HEATRA ---
HPI - Head Injury General Chief complaint: Head Injury Stated complaint: fall from wheelchair; hit head Source: patient and EMS Mode of arrival: EMS Limitations: no limitations History of Present Illness HPI Narrative: This is an 84-year-old female with history of CAD, AFib, CHF, diabetes who presents the ED for a fall. Patient states that she was leaning order a wheelchair when she lost her balance and fell forward hitting her right forehead. EMS states that she sustained abrasion to her right forehead and hematoma and bleeding was controlled on arrival. Patient denies loss consciousness. She is on her Eliquis and Plavix. Denies chest pain, shortness of breath, abdominal pain, other injuries. Related Data Home Medications ?Medication ?Instructions ?Recorded ?Confirmed ?Last Taken ?Type atorvastatin 80 mg tablet 80 mg PO HS 03/20/24 03/09/25 Unknown History clopidogrel 75 mg tablet 75 mg PO DAILY 03/20/24 03/09/25 Unknown History furosemide 20 mg tablet 20 mg PO BID PRN lower leg swelling 03/20/24 03/09/25 Unknown History metoprolol succinate 100 mg 100 mg PO BID 03/20/24 03/09/25 Unknown History tablet,extended release 24 hr multivitamin with minerals 2 tablet PO DAILY 03/20/24 03/09/25 Unknown History (Hair,Skin and Nails tablet) apixaban 5 mg tablet (Eliquis) 5 mg PO BID 12/08/24 03/09/25 Unknown History insulin degludec 200 unit/mL (3 24 unit subcut DAILY 12/08/24 03/09/25 Unknown History mL) subcutaneous pen (Tresiba FlexTouch U-200 insulin) oxybutynin ER 30 mg PO HS 12/08/24 03/09/25 Unknown History pantoprazole 40 mg tablet,delayed 40 mg PO QAM 12/08/24 03/09/25 Unknown History release sacubitril 24 mg-valsartan 26 mg 1 tablet PO BID 12/08/24 03/09/25 Unknown History tablet (Entresto) semaglutide 2 mg/dose (8 mg/3 mL) 2 mg subcut WEEKLY 12/08/24 03/09/25 03/04/25 History subcutaneous pen injector (Ozempic) spironolactone 25 mg tablet 12.5 mg PO QAM 12/08/24 03/09/25 Unknown History venlafaxine 75 mg capsule,extended 75 mg PO HS 12/08/24 03/09/25 Unknown History release 24 hr (Effexor XR) alprazolam 0.25 mg tablet 0.25 mg PO DAILY PRN anxiety 03/09/25 03/09/25 Unknown History buspirone 5 mg tablet 5 mg PO BID 03/09/25 03/09/25 Unknown History cetirizine 10 mg capsule (All Day 10 mg PO HS 03/09/25 03/09/25 Unknown History Allergy (cetirizine)) clobetasol 0.05 % scalp solution 1 applic topical BID 03/09/25 03/09/25 Unknown History ketoconazole 2 % topical cream 1 applic topical DAILY 03/09/25 03/09/25 Unknown History loperamide 2 mg capsule 2 mg PO DAILY PRN loose stool 03/09/25 03/09/25 Unknown History (Anti-Diarrheal (loperamide)) cmbjzcuh-kwm-nukhk acid 0.4 1 tablet PO DAILY 03/09/25 03/09/25 Unknown History mg-lycopene 300 mcg-lutein 250 mcg tablet (A Thru Z Select 50 Plus Formula) nystatin 100,000 unit/gram topical 1 applic topical BID 03/09/25 03/09/25 Unknown History powder roflumilast 0.3 % topical cream 1 applic topical DAILY 03/09/25 03/09/25 Unknown History (Zoryve) Allergies Allergy/AdvReac Type Severity Reaction Status Date / Time No Known Allergies Allergy Verified 03/25/25 04:26 Review of Systems Review of Systems: Gen.: Denies fevers or chills Eyes: Denies eye pain or visual change ENT: Denies congestion Respiratory: Denies shortness of breath or cough CV: Denies chest pain or palpitations GI: Denies abdominal pain nausea, emesis or diarrhea denies burning, urgency, frequency or hematuria Musculoskeletal: Denies back pain or muscle pain Neuro: Denies numbness, tingling, weakness or focal weakness Skin: Denies rash Except as documented, all other systems reviewed and negative [facility] Past Medical History Medical History HLD (hyperlipidemia) Hypertension Peripheral vascular disease History of pacemaker Myocardial infarction Congestive heart failure Atrial fibrillation Coronary artery disease Deep vein thrombosis September 2024 Insulin dependent type 2 diabetes mellitus Surgical History Surgical History History of thrombectomy right groin DVT in September 2024 Aortic valve replaced Coronary artery disease status post coronary stent insertion 3 stents placed in 2022 Family History Family History Father Diabetes mellitus Other Heart disease Social History Social History Alcohol intake: never Substance use: never Substance use type: does not use Do You Feel Safe in your Home?: Yes Lack of Transportation: No Lack of Food: Never True Current Housing: I Have Housing Concerned About Future Housing: No Difficulty Paying Gas/Electric Bills: No Difficulty Paying for Meds: No Currently Unemployed: No Education: Decline to Answer Difficulty w/ Childcare or Family Care: No Living arrangements: assisted living Additional living arrangements comments: [facility] Spiritual care concerns: No Exam Narrative: APPEARANCE: No acute distress, nontoxic, resting in bed EYES: EOMI HEENT: Normocephalic, OMM. Hematoma over the right medial brow with a small abrasion over the right forehead, bleeding controlled RESPIRATORY: No respiratory distress Clear to auscultation bilaterally with no rhonchi wheezing or rales. CARDIOVASCULAR: Regular rate and rhythm without murmurs rubs or gallops. ABDOMINAL: Soft, nontender, nondistended, no rebound or guarding MUSCULOSKELETAl: Moves all extremities. No clubbing, cyanosis or edema. NEURO: Awake and alert. Following commands, speech normal, no focal deficits SKIN:: Warm, dry. No rashes lesions or abrasions PSYCHIATRIC: Normal affect/mood, Course Vital Signs Vital signs: Vital Signs Temperature 98.2 F 03/25/25 04:17 Pulse Rate 73 03/25/25 04:17 Respiratory Rate 18 03/25/25 04:17 Blood Pressure 164/66 H 03/25/25 04:17 Pulse Oximetry 97 03/25/25 04:17 Oxygen Delivery Room Air 03/25/25 04:17 Temperature 98.2 F 03/25/25 04:17 Pulse Rate 69 03/25/25 05:16 Respiratory Rate 18 03/25/25 05:16 Blood Pressure 165/100 H 03/25/25 05:16 Pulse Oximetry 96 03/25/25 05:16 Oxygen Delivery Room Air 03/25/25 04:17 MDM - Head Injury MDM Narrative Medical decision making narrative: 84-year-old female Presenting for fall. On initial evaluation patient was in no acute distress afebrile, hemodynamic stable. Differentials include but are not limited to: Fracture, sprain, strain, contusion, intracranial hemorrhage, subdural hematoma Notable exam findings: Abrasions and hematoma over the right forehead/brow Notable imaging findings: CT head showed no acute process. CT facial bones showed bilateral nasal bone fractures. CT cervical spine showed no acute fractures. Patient did have slight nasal deviation but had no respiratory distress. There is no nasal septal hematoma. Patient was deemed appropriate for discharge at this time.Patient was advised follow-up with their PCP in the next week for re-evaluation. Patient was given a referral to , ENT, for further evaluation of her nasal fractures. Patient was agreeable to this plan. Given strict return precautions. Medical Records Attestation: I reviewed the patient's medical records. Imaging Data Attestation: I personally reviewed and interpreted this imaging study as follows: Radiologist's impression: CT head: No ICH, mass effect or edema. No evidence of acute cortical stroke. Periventricular small vessel ischemic change. CT facial bones: Acute fracture seen in bilateral nasal bones. Orbital caro are intact. Deviation of the nasal septum with convexity to the left side. CT C-spine: No acute fracture Discharge Plan Discharge Clinical Impression: Abrasion, Hematoma Fall Qualifiers: Encounter type: initial encounter Qualified Code(s): W19.XXXA - Unspecified fall, initial encounter Closed fracture nasal bone Qualifiers: Encounter type: initial encounter Qualified Code(s): S02.2XXA - Fracture of nasal bones, initial encounter for closed fracture Patient Disposition: Home Condition: Stable Instructions: Antibiotic Form, Nasal Fracture (ED) Additional Instructions: CTs revealed nasal bone fractures, but no intracranial bleeding. These will likely heal on their own. He was given a referral to Dr. Dick, ENT, for follow-up in the next week. You may take Tylenol for your pain. Return to the ED for any new or worsening symptoms. Patient Language: Andorran Prescriptions: No Action atorvastatin 80 mg Tablet 80 mg PO HS metoprolol succinate 100 mg Tablet Extended Release 24 Hr 100 mg PO BID clopidogrel 75 mg Tablet 75 mg PO DAILY furosemide 20 mg Tablet 20 mg PO BID PRN (Reason: lower leg swelling) Hair,Skin and Nails Tablet 2 tablet PO DAILY alprazolam 0.25 mg tablet 0.25 mg PO DAILY PRN (Reason: anxiety) buspirone 5 mg tablet 5 mg PO BID A Thru Z Select 50Plus Formula 0.4 mg-300 mcg- 250 mcg tablet 1 tablet PO DAILY All Day Allergy (cetirizine) 10 mg capsule 10 mg PO HS clobetasol 0.05 % solution 1 applic topical BID ketoconazole 2 % cream 1 applic topical DAILY loperamide [Anti-Diarrheal (loperamide)] 2 mg capsule 2 mg PO DAILY PRN (Reason: loose stool) nystatin 100,000 unit/gram powder 1 applic topical BID Zoryve 0.3 % cream 1 applic topical DAILY Eliquis 5 mg tablet 5 mg PO BID sacubitril-valsartan [Entresto] 24-26 mg tablet 1 tablet PO BID oxybutynin ER 15 mg tablet 30 mg PO HS Ozempic 2 mg/dose (8 mg/3 mL) pen injector 2 mg subcut WEEKLY Patient Comments: Wednesday pantoprazole 40 mg tablet,delayed release (DR/EC) 40 mg PO QAM spironolactone 25 mg tablet 12.5 mg PO QAM insulin degludec [Tresiba FlexTouch U-200] 200 unit/mL (3 mL) insulin pen 24 unit subcut DAILY venlafaxine [Effexor XR] 75 mg capsule,extended release 24hr 75 mg PO HS Follow-up/Referrals: Hannah Dick MD [Physician, Ear, Nose, Throat] Annie,Gerri Hernandez, INTELLIGENCE CHIEF [Primary Care Provider, Unknown]
--- NOTE | 2025-03-25 04:31 | PC.NURSE ---
Patient taken to CT via stretcher at this time.
[2025-03-25 05:16] VITALS: BP 165/100; PULSE 69; RESP 18; O2SAT 96
--- NOTE | 2025-03-25 06:00 | PC.NURSE ---
Called patients son, and informed of discharge and plan of care. Patients son states he will come pick her up.
[2025-03-25] MEDS: MORPHINE SULFATE (*CRX) 4 MG/ML INJ 2 MG IV PUSH (06:23)
[2025-03-25 06:28] VITALS: BP 183/99; PULSE 72; RESP 18; O2SAT 94
== END 2025-03-25 06:31 ==
PROVIDERS: Emergency Provider Student in an Organized Health Care Education/Training Program
DX: S02.2XXA Fracture of nasal bones, initial encounter for closed fracture (principal); S00.11XA Contusion of right eyelid and periocular area, initial encounter; S00.81XA Abrasion of other part of head, initial encounter; I25.10 Atherosclerotic heart disease of native coronary artery without angina pectoris; I48.91 Unspecified atrial fibrillation; I50.9 Heart failure, unspecified; I11.0 Hypertensive heart disease with heart failure; I25.2 Old myocardial infarction; I73.9 Peripheral vascular disease, unspecified; E11.9 Type 2 diabetes mellitus without complications; E78.5 Hyperlipidemia, unspecified; Z95.0 Presence of cardiac pacemaker; Z95.2 Presence of prosthetic heart valve; Z95.5 Presence of coronary angioplasty implant and graft; Z86.718 Personal history of other venous thrombosis and embolism; Z79.02 Long term (current) use of antithrombotics/antiplatelets; Z79.899 Other long term (current) drug therapy; Z79.01 Long term (current) use of anticoagulants; Z79.85 Long-term (current) use of injectable non-insulin antidiabetic drugs; Z79.4 Long term (current) use of insulin; W05.0XXA Fall from non-moving wheelchair, initial encounter
CPT/HCPCS: 70450; 70486; 72125; 96374; 99284; J2270

== ENCOUNTER 2025-04-17 14:47 | Inpatient (IN) | payer MEDICARE, BC, SELFPAY ==
[2025-04-17] VITALS (8 sets, daily range): BP systolic 105–155; BP diastolic 45–82; PULSE 67–80; RESP 20–24; TEMP 36.1–36.3; O2SAT 84–100; BMI 40.0
--- NOTE | ~2025-04-17 | XR_ITS ---
EXAMINATION: XR chest 1V portable COMPARISON: No comparisons available. HISTORY: respiratory failure FINDINGS: Moderate pulmonary venous congestion. Small basilar infiltrates and probable effusions. No pneumothorax. Moderate cardiomegaly. Mediastinal and hilar contours are within normal limits. Poststernotomy. Miscellaneous: ET tube 2 cm above the kenny, nasogastric tube the tip is not clearly visualized, right central line in the SVC. Impression: CHF. Superimposed probable pneumonia. The findings appear progressed compared to the previous exam. Reviewed, dictated and finalized at location [facility] Impression: CHF. Superimposed probable pneumonia. The findings appear progressed compared t o the previous exam.
--- NOTE | ~2025-04-17 | CT_ITS ---
EXAMINATION: CT chest abdomen pelvis wo con, 04/22/2025 15:40 CNC MACHINE SETTER HISTORY: Acute respiratory failure COMPARISON: No comparisons available. TECHNIQUE: CT scan of the chest, abdomen and pelvis was performed without contrast One or more of the following dose reduction techniques were used: automated exposure control, adjustment of the mA and/or kV according to patient size, use of iterative reconstruction technique. Unless otherwise stated, incidental findings do not require dedicated follow up imaging FINDINGS: CT chest: No significant coronary calcification is present ([id number]) LUNGS: ET tube terminates above the kenny. No tracheomalacia. No bronchiectasis. Small simple appearing left pleural effusion. Moderate to large simple appearing right pleural effusion. Moderate pulmonary venous congestion. Mild pulmonary fibrotic changes. Mild emphysematous changes. Small basilar inf iltrates. HEART AND PERICARDIUM: Mild cardiomegaly. No pericardial effusion. AORTA: Normal caliber aorta. MEDIASTINUM: Unremarkable. THYROID: The thyroid is unremarkable. CT abdomen: LIVER: Mild cirrhotic disease of the liver suspected. SPLEEN: Unremarkable, no splenomegaly. KIDNEYS: Right Kidney: Unremarkable. No calculi. No hydronephrosis. Left Kidney: Left kidney superior pole simple appearing renal cyst 2 x 2 cm with midpole calculus 2 mm, no hydronephrosis. ADRENAL GLANDS: Unremarkable. PANCREAS: Severe pancreatic atrophy with abnormal prominence of the pancreatic body with underlying cystic lesion measuring 2.5 x 2 cm suspected, contrast- enhanced MRI is recommended. GALLBLADDER/BILIARY: Unremarkable. No biliary dilatation. STOMACH AND ESOPHAGUS: Nasogastric tube in the stomach. The stomach appears decompressed. BOWEL/MESENTERY: Moderate fecal content, no colitis or diverticulitis. Appendix is normal. Ill-defined stranding within the mesentery. No thickened or dilated loops of small bowel. RETROPERITONEUM: Unremarkable AORTA/VASCULATURE: Normal caliber aorta. FREE FLUID OR FREE AIR: None. CT pelvis: SOLID ORGANS/REPRODUCTIVE: The uterus is atrophic with subcentimeter probable calcified uterine fibroids. No adnexal mass. BLADDER: The bladder is decompressed. LYMPHADENOPATHY: No lymphadenopathy. OSSEOUS STRUCTURES: No sclerotic or lytic lesions. Moderate degenerative changes are noted. No acute rib fractures are identified. Poststernotomy changes. OVERLYING SOFT TISSUES: Mild soft tissue anasarca. Small bilateral fat- containing inguinal hernia. Morales catheter in the bladder. IMPRESSION: 1. CHF and superimposed bronchopneumonia. There is underlying chronic lung disease. Follow-up is recommended to assess. 2. No acute intra-abdominal process. 3. Pancreatic lesion suspected. Contrast-enhanced MRI is recommended. Reviewed, dictated and finalized at location P. MACHINE SETTER IMPRESSION: 1. CHF and superimposed bronchopneumonia. There is underlying chronic lung dise ase. Follow-up is recommended to assess. 2. No acute intra-abdominal process. 3. Pancreatic lesion suspected. Contrast-enhanced MRI is recommended.
--- NOTE | ~2025-04-17 | CT_ITS ---
EXAMINATION: CT LE RT wo con COMPARISON: None HISTORY: Rule out necrotizing fasciitis TECHNIQUE: Axial images were obtained without IV contrast. Sagittal, coronal reconstruction images were obtained from the axial views. CT scan performed using dose optimization techniques including the following automated exposure control; adjustment of mA and/or kV; use of iterative reconstruction technique. Automatic exposure control was used to reduce radiation dose. Permanent radiation dose record is archived to PACS. FINDINGS: There are severe tricompartmental degenerative changes of the visualized knee. No fracture or dislocation. There is no osseous destruction identified. The brain density is within normal limits. There is diffuse stranding noted throughout the subcutaneous tissues with thickening of the skin however there is no loculated fluid collection identified. There is no metallic radiopaque foreign body with no subcutaneous air. Moderate atrophy noted of the musculature. No gross intramuscular hemorrhage or fluid collection is identified. IMPRESSION: Severe cellulitis. Absence of contrast limits evaluation for abscess however there is no gross loculated fluid collection. There is no air identified suggest necrotizing fasciitis. If there remains clinical concern contrast- enhanced MRI is recommended Reviewed, dictated and finalized at location P. R DRIER OPERATOR IMPRESSION: Severe cellulitis. Absence of contrast limits evaluation for absces s however there is no gross loculated fluid collection. There is no air identif ied suggest necrotizing fasciitis. If there remains clinical concern contrast-e nhanced MRI is recommended
--- NOTE | ~2025-04-17 | XR_ITS ---
EXAMINATION: XR abdomen gastric tube insert, 04/22/2025 15:35 TELEPHONE MAINTENANCE MECHANIC HISTORY: NG insertion COMPARISON: No comparisons available. Technique: 3 view. Findings: Bowel gas pattern unremarkable. No obstruction. No free air. No abnormal calcifications No acute osseous abnormality. Nasogastric tube terminates in the stomach. Impression: 1. No acute abnormality. Reviewed, dictated and finalized at location P. PHONE MAINTENANCE MECHANIC Impression: 1. No acute abnormality.
--- NOTE | ~2025-04-17 | XR_ITS ---
EXAMINATION: XR chest ET placement COMPARISON: No comparisons available. HISTORY: After intubation to confirm ET placement, central line place FINDINGS: Mild pulmonary venous congestion. No pneumothorax. Mild cardiomegaly. Mediastinal and hilar contours are within normal limits. Poststernotomy. Miscellaneous: ETT 3 cm above the kenny, right central line in the SVC, nasogastric tube in the stomach. Impression: Stable CHF Reviewed, dictated and finalized at location P. K KILN BURNER Impression: Stable CHF
--- NOTE | ~2025-04-17 | XR_ITS ---
XR chest 1V portable INDICATION:hypoxic . REFERENCE: None FINDINGS: A single AP of the chest demonstrates enlarged heart. Bilateral lower lobe infiltrate and opacities are noted. There is no evidence of pneumothorax or pleural effusion. IMPRESSION: Bilateral lower lobe infiltrate and opacity may represent edema. Reviewed, dictated and finalized at location S. TER SIGN MAINTENANCE
--- NOTE | ~2025-04-17 | XR_ITS ---
EXAMINATION: XR chest 1V portable DATE: 04/25/2025 05:51 INDICATION: Respiratory failure TECHNIQUE: A single frontal view of the chest was obtained. COMPARISON: April 24 chest x-ray FINDINGS: Increased opacification lung bases right worse than left suggest increasing small to moderate effusions, right worse than left. Heart size slightly enlarged. Vascular shadows prominent. Endotracheal tube and gastric catheter and right internal jugular central catheter unchanged in position. No pneumothorax or subphrenic free air seen. Sternal retention wires and loop recording device unchanged. IMPRESSION: 1. Probable worsening bilateral effusions right worse than left with pulmonary edema or consolidations also likely present. Reviewed, dictated and finalized at location A. OZOOLOGY TEACHER
--- NOTE | ~2025-04-17 | CT_ITS ---
EXAMINATION: CT brain wo con, 04/17/2025 16:15 ATHLETIC SHOE DESIGNER HISTORY: fall on thinners COMPARISON: No comparisons available. Technique: Axial images obtained of the brain without contrast. One or more of the following dose reduction techniques were used: automated exposure control, adjustment of the mA and/or kV according to patient size, use of iterative reconstruction technique. Findings: Remote right cerebellar lacunar infarct, no acute infarct or hemorrhage. No midline shift or mass effect Mastoid air cells unremarkable. Sinuses and orbits unremarkable. No acute fracture. No significant facial or scalp soft tissue swelling evident. No radiopaque foreign body is seen. Impression: 1.No acute intracranial abnormality. Reviewed, dictated and finalized at location P. ETIC SHOE DESIGNER Impression: 1.No acute intracranial abnormality.
--- NOTE | ~2025-04-17 | CT_ITS ---
EXAMINATION: CT cervical spine wo con DATE: 04/17/2025 16:26 INDICATION: Fall TECHNIQUE: Computed tomography (CT) of the cervical spine was performed without intravenous contrast. Automated exposure control and iterative reconstruction technique were employed. The dose-length product was 322.40 mGy-cm. COMPARISON: None FINDINGS: Mild cervicothoracic dextrocurvature. 2 mm anterolisthesis of T1 on T2. Vertebral body heights are normal. No fracture. Severe disc height loss with degenerative endplate changes at C6-C7. Moderate disc height loss with additional severe bilateral uncovertebral osteoarthritis at C5-C6. Mild disc height loss at C2-C3. C4-C5 and at C7-T1. Moderate to severe disc height loss at T1-T2. Moderate uncovertebral osteoarthritis on the left at C4-C5 with mild uncovertebral osteoarthritis at the remaining cervical levels. There is also severe multilevel facet osteoarthritis throughout the majority of the cervical and thoracic spine with solid osseous fusion across the right C2-C3 and bilateral T2-T3 facet joints. Posterior endplate osteophytes contribute to mild to moderate central canal stenosis at C6-C7 and mild central canal stenosis at C5-C6. There is also multilevel cervical and upper thoracic neural foraminal stenosis, moderate severity on the left at C4-C5, C6-C7, T1-T2 and T2-T3 and on the right at C5-C6, C6-C7, T1-T2 and T2-T3. Mild pulmonary edema and mild pleural parenchymal scarring at the bilateral apices of the lungs. Cervical soft tissues are unremarkable. IMPRESSION: 1. Severe cervical spondylosis with no acute osseous abnormality. 2. Mild pulmonary edema at the apices of lungs. Reviewed, dictated and finalized at location A. METRIC TECHNOLOGIST
--- NOTE | ~2025-04-17 | CT_ITS ---
EXAMINATION: CT brain wo con, 04/22/2025 15:50 WIG STYLIST HISTORY: Acute encephalopathy COMPARISON: No comparisons available. Technique: Axial images obtained of the brain without contrast. One or more of the following dose reduction techniques were used: automated exposure control, adjustment of the mA and/or kV according to patient size, use of iterative reconstruction technique. Findings: No acute infarct or parenchymal hemorrhage. No abnormal mass or mass effect. No midline shift. No extra-axial fluid collections. No hydrocephalus. Mastoid air cells unremarkable. Sinuses and orbits unremarkable. No acute fracture. No significant facial or scalp soft tissue swelling evident. No radiopaque foreign body is seen. Impression: 1.No acute intracranial abnormality. Reviewed, dictated and finalized at location P. STYLIST Impression: 1.No acute intracranial abnormality.
--- NOTE | ~2025-04-17 | XR_ITS ---
EXAMINATION: XR chest 1V portable COMPARISON: No comparisons available. HISTORY: respiratory failure FINDINGS: Moderate pulmonary venous congestion. Scattered infiltrates and small right effusion. No pneumothorax. Moderate cardiomegaly. Mediastinal and hilar contours are within normal limits. Post sternotomy. Miscellaneous: ET tube 3 cm above the kenny, right central line in the SVC, nasogastric tube in the stomach. Impression: CHF. Findings are slightly progressed compared to the prior study. Reviewed, dictated and finalized at location P. LER STEERER Impression: CHF. Findings are slightly progressed compared to the prior study.
--- NOTE | 2025-04-17 15:10 | PC.NURSE ---
pt o2 sat in the low 80's upon arrival. placed in 2L NC. pt does have PMH COPD
[2025-04-17 15:49] LABS: Hematocrit 43.5 % (37.0-47.0); Hemoglobin 14.0 g/dL (12.0-15.0); Immature Granulocyte Percent A 0.6 % (0-0.5); Lymphocytes Absolute Auto 0.66 K/mm3 (0.9-3.2); Mean Corpuscular HGB Conc 32.2 g/dl (32-36); Mean Corpuscular Hemoglobin 31.3 pg (26-34); Mean Corpuscular Volume 97.3 fl (80-100); Nucleated Red Blood Cells Absolute Auto 0.000 K/mm3 (0.0-0.012); Nucleated Red Blood Cells Perc 0.0 % (0.0-0.2); Platelet Count Result 176 k/mm3 (150-375); Red Blood Count 4.47 M/mm3 (4.2-5.4); White Blood Count 5.3 K/mm3 (4.5-10.0)
[2025-04-17 16:03] LABS: Anion Gap 6 mmol/L (4-12); Blood Urea Nitrogen 22 mg/dL (7-17); Calcium 9.7 mg/dL (8.4-10.2); Carbon Dioxide 28 mmol/L (22-30); Chloride 105 mmol/L (98-107); Estimated Glomerular Filt Rate 52; Glucose 178 mg/dL (65-110); Potassium 4.6 mmol/L (3.4-5.0); Sodium 139 mmol/L (137-145)
[2025-04-17] MEDS: ceFAZolin 2 GM in SODIUM CHLORIDE 0.9% IV 50 ML 100 ML IVPB (16:08)
[2025-04-17] MEDS: FUROSEMIDE INJ 40 MG/4 ML VIAL IV PUSH (16:08)
--- OUTSIDE RECORDS SUMMARY | 2025-04-17 16:53 | XMS_ITS | Clinical Summary ---
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 1 05/18/2021 [...] (02/16/2025): Added automatically from request for surgery [id number] s/p insertion of PPM and AV risa [...] Description 02/16/2025 2:00 PM CDT Office Visit [facility] - [address], [address] [place] [address] Madhavi Cheek MD Establish Care [...] - 1-dose 75+ series) 2016 PHQ-2 (Physician [place]) 05/17/2024 Hemoglobin A1C 06/17/2024 12/16/2023, 04/0 12/2023, [...] complete this topic Insurance MEDICARE Care Teams Nutrition Services Worker Relationship Specialty Start Date End Date Gerri [place] [address] PCP - General NURSE PRACTITIONER 02/16/25
--- NOTE | 2025-04-17 17:00 | PC.NURSE ---
Pts son called to ask if his mom was going to be admitted or not. At this time, it was unknown what the plan was. Advised son that I would reach out when more information is known.
--- NOTE | 2025-04-17 17:15 | ED.FALL ---
HPI - Fall General Chief Complaint: Fall Stated Complaint: fall Time Seen by Provider: 04/17/25 15:31 History of Present Illness HPI Narrative: Patient presents here after she had a fall, she accidentally fell straight onto her face earlier today, did not lose consciousness. Incidentally she does also have redness to her right leg, the nurse has been trying to address this with topical antibiotics Related Data Home Medications ?Medication ?Instructions ?Recorded ?Confirmed ?Last Taken ?Type atorvastatin 80 mg tablet 80 mg PO HS 03/20/24 03/09/25 Unknown History clopidogrel 75 mg tablet 75 mg PO DAILY 03/20/24 03/09/25 Unknown History furosemide 20 mg tablet 20 mg PO BID PRN lower leg swelling 03/20/24 03/09/25 Unknown History metoprolol succinate 100 mg 100 mg PO BID 03/20/24 03/09/25 Unknown History tablet,extended release 24 hr multivitamin with minerals 2 tablet PO DAILY 03/20/24 03/09/25 Unknown History (Hair,Skin and Nails tablet) apixaban 5 mg tablet (Eliquis) 5 mg PO BID 12/08/24 03/09/25 Unknown History insulin degludec 200 unit/mL (3 24 unit subcut DAILY 12/08/24 03/09/25 Unknown History mL) subcutaneous pen (Tresiba FlexTouch U-200 insulin) oxybutynin ER 30 mg PO HS 12/08/24 03/09/25 Unknown History pantoprazole 40 mg tablet,delayed 40 mg PO QAM 12/08/24 03/09/25 Unknown History release sacubitril 24 mg-valsartan 26 mg 1 tablet PO BID 12/08/24 03/09/25 Unknown History tablet (Entresto) semaglutide 2 mg/dose (8 mg/3 mL) 2 mg subcut WEEKLY 12/08/24 03/09/25 03/04/25 History subcutaneous pen injector (Ozempic) spironolactone 25 mg tablet 12.5 mg PO QAM 12/08/24 03/09/25 Unknown History venlafaxine 75 mg capsule,extended 75 mg PO HS 12/08/24 03/09/25 Unknown History release 24 hr (Effexor XR) alprazolam 0.25 mg tablet 0.25 mg PO DAILY PRN anxiety 03/09/25 03/09/25 Unknown History buspirone 5 mg tablet 5 mg PO BID 03/09/25 03/09/25 Unknown History cetirizine 10 mg capsule (All Day 10 mg PO HS 03/09/25 03/09/25 Unknown History Allergy (cetirizine)) clobetasol 0.05 % scalp solution 1 applic topical BID 03/09/25 03/09/25 Unknown History ketoconazole 2 % topical cream 1 applic topical DAILY 03/09/25 03/09/25 Unknown History loperamide 2 mg capsule 2 mg PO DAILY PRN loose stool 03/09/25 03/09/25 Unknown History (Anti-Diarrheal (loperamide)) dhrcgzgs-mia-bdyxm acid 0.4 1 tablet PO DAILY 03/09/25 03/09/25 Unknown History mg-lycopene 300 mcg-lutein 250 mcg tablet (A Thru Z Select 50 Plus Formula) nystatin 100,000 unit/gram topical 1 applic topical BID 03/09/25 03/09/25 Unknown History powder roflumilast 0.3 % topical cream 1 applic topical DAILY 03/09/25 03/09/25 Unknown History (Zoryve) Allergies Allergy/AdvReac Type Severity Reaction Status Date / Time No Known Allergies Allergy Verified 03/25/25 04:26 Review of Systems Review of Systems: All systems reviewed & are unremarkable except as noted in HPI and below PMFSH Past Medical History Medical History HLD (hyperlipidemia) Hypertension Peripheral vascular disease History of pacemaker Myocardial infarction Congestive heart failure Atrial fibrillation Coronary artery disease Deep vein thrombosis September 2024 Insulin dependent type 2 diabetes mellitus Surgical History Surgical History History of thrombectomy right groin DVT in September 2024 Aortic valve replaced Coronary artery disease status post coronary stent insertion 3 stents placed in 2022 Family History Family History Father Diabetes mellitus Other Heart disease Social History Social History Smoking status: Never smoker Alcohol intake: never Substance use: never Substance use type: does not use Lack of Transportation: No Lack of Food: Never True Current Housing: I Have Housing Concerned About Future Housing: No Difficulty Paying Gas/Electric Bills: No Difficulty Paying for Meds: No Currently Unemployed: No Education: Decline to Answer Difficulty w/ Childcare or Family Care: No Living arrangements: assisted living Additional living arrangements comments: [facility] Spiritual care concerns: No Exam Narrative: EXAMINATION OF ORGAN SYSTEMS/BODY AREAS: Constitutional: Vital signs per nursing GENERAL:[No acute distress, non-toxic appearing.] HEAD: Contusion to forehead EYES: EOMI, conjunctiva normal ENT: Abrasion to bridge of nose LUNGS: Nonlabored breathing. HEART: [Regular rate and rhythm] ABD: [Soft], [nontender to palpation] EXT: Bilateral lower extremity pitting edema SKIN: Redness to right leg, contusion and abrasion to forehead and bridge of nose NEURO: [Alert. No gross focal sensory or strength deficits.] PSYCH: Normal affect Course Vital Signs Vital signs: Vital Signs Temperature 97.4 F L 04/17/25 14:48 Pulse Rate 67 04/17/25 14:48 Respiratory Rate 20 04/17/25 14:48 Blood Pressure 144/67 H 04/17/25 14:48 Pulse Oximetry 84 L 04/17/25 14:48 Oxygen Delivery Room Air 04/17/25 14:48 Temperature 97.4 F L 04/17/25 14:48 Pulse Rate 70 04/17/25 16:00 Respiratory Rate 20 04/17/25 16:00 Blood Pressure 129/65 04/17/25 16:00 Pulse Oximetry 95 04/17/25 16:00 Oxygen Delivery Nasal Cannula 04/17/25 15:09 Oxygen Flow Rate 2 04/17/25 15:09 [facility] MDM Narrative Medical decision making narrative: 84-year-old female except default presenting to the emergency department after she had a fall and hit her head, on exam she has a contusion to her forehead, she also has new oxygen requirement, lower extremity edema, consistent with most likely CHF exacerbation vs ACS/OK, pneumonia, very unlikely PE as she is anticoagulated; she has swelling to both legs with pitting edema, but right leg is red and tender, consistent with cellulitis. IV is established, Lasix and antibiotics given. Chest x-ray is performed and remarkable for cardiomegaly with pulmonary vascular congestion. Labs within acceptable limits. The patient will be admitted for CHF exacerbation requiring oxygen, cellulitis, and further management. Discussed with hospitalist and patient agreeable to plan. Differential Diagnosis Differential Diagnosis: CHF, pneumonia, cellulitis, very unlikely PE patient on Eliquis, fractures, intracranial hemorrhage Lab Data 04/17/25 15:41 04/17/25 15:41 Labs: Lab Results 04/17/25 Range/Units 15:41 WBC 5.3 (4.5-10.0) K/mm3 RBC 4.47 (4.2-5.4) M/mm3 Hgb 14.0 (12.0-15.0) g/dL Hct 43.5 (37.0-47.0) % MCV 97.3 (80-100) fl MCH 31.3 (26-34) pg MCHC 32.2 (32-36) g/dl RDW 15.4 H (11.5-14.5) % Plt Count 176 (150-375) k/mm3 MPV 9.8 (7.4-10.4) fl Immature Gran % (Auto) 0.6 H (0-0.5) % Neut % (Auto) 76.2 H (45.5-73.1) % Lymph % (Auto) 12.4 L (18.3-44.2) % [place] % (Auto) 7.7 (2.6-8.5) % Eos % (Auto) 2.3 (0-4.4) % Baso % (Auto) 0.8 (0.2-1.2) % Lymph # (Auto) 0.66 L (0.9-3.2) K/mm3 [place] # (Auto) 0.4 (0.1-0.6) K/mm3 Eos # (Auto) 0.1 (0-0.3) K/mm3 Baso # (Auto) 0.0 (0.0-0.1) K/mm3 Abs Immat Gran (auto) 0.03 (0.00-0.031) K/mm3 Absolute Neuts (auto) 4.1 (1.3-6.7) K/mm3 Absolute Nucleated RBC 0.000 (0.0-0.012) K/mm3 Nucleated RBC % 0.0 (0.0-0.2) % Sodium 139 (137-145) mmol/L Potassium 4.6 (3.4-5.0) mmol/L Chloride 105 (98-107) mmol/L Carbon Dioxide 28 (22-30) mmol/L Anion Gap 6 (4-12) mmol/L BUN 22 H (7-17) mg/dL Creatinine 1.02 H (0.7-1.0) mg/dL Estim Creat Clear Calc Not Reportable Estimated GFR 52 L (59 - ) Glucose 178 H (65-110) mg/dL Lactic Acid 1.6 (0.7-2.0) mmol/L Calcium 9.7 (8.4-10.2) mg/dL Imaging Data Radiologist's impression: ITS Impressions Head CT 04/17/25 16:29 Impression: 1.No acute intracranial abnormality. Cervical Spine CT 04/17/25 16:46 IMPRESSION: 1. Severe cervical spondylosis with no acute osseous abnormality. 2. Mild pulmonary edema at the apices of lungs. Chest X-Ray 04/17/25 17:01 IMPRESSION: Bilateral lower lobe infiltrate and opacity may represent edema. Critical Care Time Critical Care Time Critical Care Time: Yes Initial evaluation, discuss w/ involved parties, attempting to gather old records: 10 minutes Documenting medical record: 5 minutes Review of results (EKG's, labs, imaging): 5 minutes Serial repeat bedside evaluation: 10 minutes Discussing case with multiple memebers of the care team and consultants: 5 minutes Total Critical Care Time: 35 Discharge Plan Discharge Clinical Impression: Acute hypoxic respiratory failure, Cellulitis, Acute exacerbation of CHF (congestive heart failure) Patient Disposition: Still a Patient Condition: Stable Patient Language: Barbadian Prescriptions: No Action atorvastatin 80 mg Tablet 80 mg PO HS metoprolol succinate 100 mg Tablet Extended Release 24 Hr 100 mg PO BID clopidogrel 75 mg Tablet 75 mg PO DAILY furosemide 20 mg Tablet 20 mg PO BID PRN (Reason: lower leg swelling) Hair,Skin and Nails Tablet 2 tablet PO DAILY alprazolam 0.25 mg tablet 0.25 mg PO DAILY PRN (Reason: anxiety) buspirone 5 mg tablet 5 mg PO BID A Thru Z Select 50Plus Formula 0.4 mg-300 mcg- 250 mcg tablet 1 tablet PO DAILY All Day Allergy (cetirizine) 10 mg capsule 10 mg PO HS clobetasol 0.05 % solution 1 applic topical BID ketoconazole 2 % cream 1 applic topical DAILY loperamide [Anti-Diarrheal (loperamide)] 2 mg capsule 2 mg PO DAILY PRN (Reason: loose stool) nystatin 100,000 unit/gram powder 1 applic topical BID Zoryve 0.3 % cream 1 applic topical DAILY Eliquis 5 mg tablet 5 mg PO BID sacubitril-valsartan [Entresto] 24-26 mg tablet 1 tablet PO BID oxybutynin ER 15 mg tablet 30 mg PO HS Ozempic 2 mg/dose (8 mg/3 mL) pen injector 2 mg subcut WEEKLY Patient Comments: Wednesday pantoprazole 40 mg tablet,delayed release (DR/EC) 40 mg PO QAM spironolactone 25 mg tablet 12.5 mg PO QAM insulin degludec [Tresiba FlexTouch U-200] 200 unit/mL (3 mL) insulin pen 24 unit subcut DAILY venlafaxine [Effexor XR] 75 mg capsule,extended release 24hr 75 mg PO HS Follow-up/Referrals: Annie,Gerri Hernandez, CMA OR LPN [Primary Care Provider, Unknown]
[2025-04-17] MEDS: TETANUS,DIPHTHERIA,AC PERTUSSIS ADULT (0.5 ML) BOOSTRIX IM (17:42)
--- NOTE | 2025-04-17 17:57 | PC.NURSE ---
Spoke with pts son to let him know that his mom is being admitted for the night.
--- NOTE | 2025-04-17 18:38 | P.HP_ITS ---
H&P: HPI History of Present Illness Date/Time: 04/17/25 18:38 Chief Complaint: fall Narrative: 84-year-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 She states that she fell onto her face it did not lose consciousness. Patient denies headache. Has a large hematoma to forehead. Patient complains of left alegria pain. It is acute keeping her awake at night. Patient states the place where she lives is not doing anything for her leg. Patient does not know how long she has had leg wound. Denies fevers chills nausea or vomiting. CBC is within normal limits, BMP shows BUN of 22 creatinine of 1.2 GFR 52, glucose of 178. Chest x-ray shows Bilateral lower lobe infiltrate and opacity may represent edema. CT head shows no acute process, CT spine shows no acute process. Pulmonary edema found on CT spine. 40 mg IV Lasix given in ED. Review of Systems Review of Systems: 12 systems were reviewed and are negativ e except for as per HPI. [facility] Past Medical History Medical History HLD (hyperlipidemia) Hypertension Peripheral vascular disease History of pacemaker Myocardial infarction Congestive heart failure Atrial fibrillation Coronary artery disease Deep vein thrombosis September 2024 Insulin dependent type 2 diabetes mellitus Surgical History Surgical History History of thrombectomy right groin DVT in September 2024 Aortic valve replaced Coronary artery disease status post coronary stent insertion 3 stents placed in 2022 Family History Family History Father Diabetes mellitus Other Heart disease Social History Social History Smoking status: Never smoker Alcohol intake: former Substance use: never Substance use type: does not use Lack of Transportation: No Lack of Food: Never True Current Housing: I Have Housing Concerned About Future Housing: No Difficulty Paying Gas/Electric Bills: No Difficulty Paying for Meds: No Currently Unemployed: No Education: High School Diploma/GED Difficulty w/ Childcare or Family Care: No Living arrangements: assisted living Additional living arrangements comments: [facility] Spiritual care concerns: No Meds Home Medications and Allergies Home Medications ?Medication ?Instructions ?Recorded ?Confirmed ?Type atorvastatin 80 mg tablet 80 mg PO HS 03/20/24 5 History clopidogrel 75 mg tablet 75 mg PO DAILY 03/20/2407/11 History furosemide 20 mg tablet 20 mg PO BID PRN lower leg s welling 03/20/24 04/17/25 History metoprolol succinate 100 mg 100 mg PO BID 03/20/2407/11 History tablet,extended release 24 hr multivitamin with minerals 2 tablet PO DAILY 03/20/24 04/17/25 History (Hair,Skin and Nails tablet) apixaban 5 mg tablet (Eliquis) 5 mg PO BID 12/08/24 History insulin degludec 200 unit/mL (3 24 unit subcut DAILY 0 12/08/24 04/17/25 History mL) subcutaneous pen (Tresiba FlexTouch U-200 insulin) oxybutynin ER 30 mg PO HS 12/08/24 5 History pantoprazole 40 mg tablet,delayed 40 mg PO QAM 5 04/17/25 History release sacubitril 24 mg-valsartan 26 mg 1 tablet PO BID 12/0804/17/25 History tablet (Entresto) semaglutide 2 mg/dose (8 mg/3 mL) 2 mg subcut WEEKLY 0 12/08/24 04/17/25 History subcutaneous pen injector (Ozempic) spironolactone 25 mg tablet 12.5 mg PO QAM 12/08/24 History alprazolam 0.25 mg tablet 0.25 mg PO DAILY PRN anxiety 03/09/25 04/17/25 History buspirone 5 mg tablet 5 mg PO BID PRN anxiety 02/1504/17/25 History cetirizine 10 mg capsule (All Day 10 mg PO HS 03/09/25 04/17/25 History Allergy (cetirizine)) clobetasol 0.05 % scalp solution 1 applic topical BID 03/09/25 04/17/25 History ketoconazole 2 % topical cream 1 applic topical DAILY 03/09/25 04/17/25 History loperamide 2 mg capsule 2 mg PO DAILY PRN loose stoo l 03/09/25 04/17/25 History (Anti-Diarrheal (loperamide)) njbigxie-khj-lyrxu acid 0.4 1 tablet PO DAILY 03/09/25 04/17/25 History mg-lycopene 300 mcg-lutein 250 mcg tablet (A Thru Z Select 50 Plus Formula) nystatin 100,000 unit/gram topical 1 applic topical BI D 03/09/25 04/17/25 History powder roflumilast 0.3 % topical cream 1 applic topical DAILY 03/09/25 04/17/25 History (Zoryve) diphenhydramine 25 2 tablet PO HS 04/17/2507/11 History mg-acetaminophen 500 mg tablet (Pain Relief PM) tramadol 50 mg tablet 50 mg PO Q12H PRN pain (scal e 04/17/25 04/17/25 History score 6-10) venlafaxine 75 mg tablet 150 mg PO DAILY 04/17/2507/11 History Allergies Allergy/AdvReac Type Severity Reaction Status Date / Time No Known Allergies Allergy Verified 04/17/25 20:14 Vital Signs Vital Signs - 24 hr 04/17/25 14:48 04/17/25 15:00 04/17/25 15:09 Temperature 97.4 F L Pulse Rate 67 69 Respiratory Rate 20 20 Blood Pressure 144/67 H 129/65 Pulse Oximetry 84 L 94 94 Oxygen Delivery Room Air Nasal Cannula Oxygen Flow Rate 2 04/17/25 16:00 04/17/25 17:45 04/17/25 18:29 Temperature Pulse Rate 70 70 70 Respiratory Rate 20 23 H 24 H Blood Pressure 129/65 105/55 L 127/45 L Pulse Oximetry 95 95 96 Oxygen Delivery Oxygen Flow Rate Exam Narrative: General: well appearing, appears stated age. HEENT: normocephalic, atraumatic. Mucous membranes moist. EOMI, PERRLA, bilateral sclera anicteric, no conjunctival injection. Neck supple without JVD, lymphadenopathy, or bruit. Large hematoma to forehead Respiratory: clear bilaterally. No rales/rhonic/wheezes. Cardiovascular: Regular rate and rhythm, normal S1-S2. No murmurs, rubs, or clicks. PMI is nondisplaced, capillary refill less than 3 second. Abdomen: Soft, round, no pulsatile masses, nondistended and nontender. No rebound, no guarding. Bowel sounds present to all four quadrants. No high pitch or tinkling sounds, resonant to percussion. Extremities: No cyanosis, clubbing, Pulses are palpable 2/2. Active ROM to all four extremities. Right lower extremity alegria with erythema and blisters painful to palpation Neuro: Alert and orientated x 4. PERRLA. Cranial nerves 2-12 intact without focal deficit. Skin: Warm, dry, and intact, without rash, erythema, or lesion. Psych: pleasant, cooperative, normal speech, normal affect, no hallucinations, no dysarthia Results Labs Labs: Short CBC 04/17/25 Range/Units 15:41 WBC 5.3 (4.5-10.0) K/mm3 Hgb 14.0 (12.0-15.0) g/dL Hct 43.5 (37.0-47.0) % Plt Count 176 (150-375) k/mm3 BMP 04/17/25 15:41 Sodium 139 Potassium 4.6 Chloride 105 Carbon Dioxide 28 BUN 22 H Creatinine 1.02 H Glucose 178 H Calcium 9.7 Quality VTE Prophylaxis VTE prophylaxis: mechanical ordered and pharmacologic ordered Assessment and Plan Assessment and plan (1) Fall: Code(s): W19.XXXA - Unspecified fall, initial encounter Status: Acute Assessment and Plan: Head CT with no acute findings C-spine CT with no acute findings PT OT eval and treat Tetanus (2) CHF exacerbation: Qualifiers: Heart failure type: unspecified Qualified Code(s): I50.9 - Heart failure, unspecified Code(s): I50.9 - Heart failure, unspecified Status: Acute Assessment and Plan: Echo on 12/03/2024 shows EF of 60-65% 40 IV Lasix given in ED Fluid restriction Daily weight P.o. Lasix starting tomorrow Continue spironolactone (3) Cellulitis: Code(s): L03.90 - Cellulitis, unspecified Status: Acute Assessment and Plan: Ancef given in ED Blood cultures pending Continue Ancef (4) Hypertension: Qualifiers: Hypertension type: primary hypertension Qualified Code(s): I10 - Essential (primary) hypertension Code(s): I10 - Essential (primary) hypertension Status: Chronic Assessment and Plan: Continue Entresto (5) Atrial fibrillation: Qualifiers: Atrial fibrillation type: unspecified chronic Qualified Code(s): I48.20 - Chronic atrial fibrillation, unspecified Code(s): I48.91 - Unspecified atrial fibrillation Status: Chronic Assessment and Plan: Continue metoprolol (6) T2DM (type 2 diabetes mellitus): Qualifiers: Diabetes mellitus complication status: without complication Diabetes mellitus fdc insulin use: with superintendent container terminal use Qualified Code(s): E11.9 - Type 2 diabetes mellitus without complications; 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
--- NOTE | 2025-04-17 18:54 | WPCEDHO ---
ED Hand Off Checklist All vitals saved:Yes IV Site documented:Yes All med administrations documented:Yes Triage Note Triage Note Pt arrives via [facility] 04/17/25 14:48 from [facility] c/o fall. it is believed that she got tangled up in some blankets and lost her balance. Pt did not lose consciousness, however she did take her head. Pt is on Eliquis. Pt also has a wound on her right lower leg that is red and has discolored discharge. Pt ran out of gauze at home and has been using paper towels and a cream for it. Pt has edema in the legs as well. Allergies No Known Allergies Allergy (Verified 03/25/25 04:26) Family History (Last Reviewed 03/25/25 @ 04:30 by Greg Mae DO) Father Diabetes mellitus Other Heart disease Administered/Completed Medications Discontinued Medications Diphtheria/Tetanus/Acell Pertussis (Tetanus,Diphtheria,Ac Pertussis Adult (0.5 Ml) Boostrix) 0.5 ml IM .ONCE ONE Stop: 04/17/25 17:21 Last Admin: 04/17/25 17:42 Dose: 0.5 ml Documented By: CARLOS Furosemide (Furosemide Inj 40 Mg/4 Ml Vial) 40 mg IV PUSH ONCE STA Stop: 04/17/25 15:36 Last Admin: 04/17/25 16:08 Dose: 40 mg Documented By: NATHANAEL Cefazolin Sodium 2 gm/ Sodium (Chloride) 50 mls @ 100 mls/hr IVPB ONCE STA Stop: 04/17/25 16:04 Last Infusion: 04/17/25 16:38 Dose: Infused Documented By: Admin: 04/17/25 16:08 Dose: 100 mls/hr Documented By: NATHANAEL Notes 04/17/25 17:57 Nurse Note by Cristina Szymanski Spoke with pts son to let him know that his mom is being admitted for the night. Initialized on 04/17/25 17:57 - END OF NOTE 04/17/25 17:00 (created 04/17/25 17:58) Nurse Note by Cristina Szymanski Pts son called to ask if his mom was going to be admitted or not. At this time, it was unknown what the plan was. Advised son that I would reach out when more information is known. Initialized on 04/17/25 17:58 - END OF NOTE 04/17/25 15:10 Nurse Note by Cristina Szymanski pt o2 sat in the low 80's upon arrival. placed in 2L NC. pt does have PMH COPD Initialized on 04/17/25 15:10 - END OF NOTE Interventions/Assessments IV Line Assessment Start: 04/17/25 14:44 Freq: Status: Active Protocol: Document 04/17/25 15:22 NATHANAEL (Rec: 04/17/25 15:23 NATHANAEL [id number]) IV Assessment Peripheral Access Left Antecubital IV Catheter Access Initiated IV Insertion Date 04/17/25 IV Insertion Time 15:23 Catheter Gauge 20 IV Insertion 1 Attempts Ultrasound Used for No Placement IV Site Assessment WNL IV Care and WNL Maintenance Last Vital Signs Temperature 97.4 F L 04/17/25 14:48 Pulse Rate 70 04/17/25 18:29 Respiratory Rate 24 H 04/17/25 18:29 Pulse Oximetry 96 04/17/25 18:29 Blood Pressure 127/45 L 04/17/25 18:29 Blood Pressure Mean 72 04/17/25 18:29 Blood Pressure Position Sitting 04/17/25 18:29 Oxygen Delivery Nasal Cannula 04/17/25 15:09 Oxygen Flow Rate 2 04/17/25 15:09 Last Result - Abnormals Only RDW 15.4 % (11.5-14.5) H 04/17/25 15:41 Immature Gran % (Auto) 0.6 % (0-0.5) H 04/17/25 15:41 Neut % (Auto) 76.2 % (45.5-73.1) H 04/17/25 15:41 Lymph % (Auto) 12.4 % (18.3-44.2) L 04/17/25 15:41 Lymph # (Auto) 0.66 K/mm3 (0.9-3.2) L 04/17/25 15:41 BUN 22 mg/dL (7-17) H 04/17/25 15:41 Creatinine 1.02 mg/dL (0.7-1.0) H 04/17/25 15:41 Estimated GFR 52 (59-) L 04/17/25 15:41 Glucose 178 mg/dL (65-110) H 04/17/25 15:41 Most Recent Suicide Severity Rating Suicide Severity Rating NO RISK INDICATED 04/17/25 14:48
--- NOTE | 2025-04-17 19:21 | PC.NURSE ---
This RN went to check on pt and his HR had increased and his BP had gotten softer. This RN went and spoke with Deepa MARRUFO and she said that she was waiting on a consult and that she was going to put in some more fluids. The pts call light was pressed by the hanhaghter d/t a drop in HR and BP. This RN retook vitals and spoke with the provider again. Bolus of normal saline was started by this RN. Pts vitals have since started returning to the pts baseline.
--- NOTE | 2025-04-17 19:56 | ADMGEN ---
This patient, Lizabeth Perry, was admitted to Medical Room 250-01. Patient/family oriented to hospital policies and general routines including ID bracelet, bed and alarms, visiting hours, pain management, procedures, bathroom and other care routines, personal items, smoking policy, room service/diet, and visiting hours. Information on how to activate the Rapid Response Team has been discussed. Patient/Family are encouraged to report perceived risks to care and to ask questions if they do not understand what they are told or what they should do.
[2025-04-17] MEDS: HYDROcodone/acetaminophen (*CRX) 5-325 MG TABLET 1 TAB PO (20:21)
[2025-04-17] MEDS: ACETAMINOPHEN 325 MG TABLET 650 MG PO (21:00)
[2025-04-17] MEDS: oxyCODONE HCL (*CRX) 5 MG TAB IR PO (21:00)
[2025-04-18] VITALS (19 sets, daily range): BP systolic 118–164; BP diastolic 50–67; PULSE 57–90; RESP 20–24; TEMP 36.2–36.5; O2SAT 91–98
[2025-04-18] MEDS: IPRATROPIUM 0.5 MG/ALBUTEROL SULFATE 2.5 MG (BASE) AMPUL.NEB 3 ML INHALATION ×3 (01:16→13:35)
[2025-04-18] MEDS: ceFAZolin 1 GM in SODIUM CHLORIDE 0.9% IV 50 ML 100 ML IVPB ×2 (04:36→16:46)
[2025-04-18 04:57] LABS: Hematocrit 42.5 % (37.0-47.0); Hemoglobin 13.6 g/dL (12.0-15.0); Immature Granulocyte Percent A 0.3 % (0-0.5); Lymphocytes Absolute Auto 0.74 K/mm3 (0.9-3.2); Mean Corpuscular HGB Conc 32.0 g/dl (32-36); Mean Corpuscular Hemoglobin 31.1 pg (26-34); Mean Corpuscular Volume 97.3 fl (80-100); Nucleated Red Blood Cells Absolute Auto 0.020 K/mm3 (0.0-0.012); Nucleated Red Blood Cells Perc 0.3 % (0.0-0.2); Platelet Count Result 162 k/mm3 (150-375); Red Blood Count 4.37 M/mm3 (4.2-5.4); White Blood Count 5.9 K/mm3 (4.5-10.0)
[2025-04-18 05:08] LABS: Anion Gap 3 mmol/L (4-12); Blood Urea Nitrogen 21 mg/dL (7-17); Calcium 9.4 mg/dL (8.4-10.2); Carbon Dioxide 31 mmol/L (22-30); Chloride 105 mmol/L (98-107); Estimated Glomerular Filt Rate 50; Glucose 146 mg/dL (65-110); Potassium 4.3 mmol/L (3.4-5.0); Sodium 139 mmol/L (137-145)
[2025-04-18] MEDS: APIXABAN 5 MG TABLET PO ×2 (08:44→16:46)
[2025-04-18] MEDS: CLOPIDOGREL BISULFATE 75 MG TABLET PO (08:44)
[2025-04-18] MEDS: FUROSEMIDE 20 MG TABLET PO ×2 (08:45→16:46)
[2025-04-18] MEDS: VENLAFAXINE HCL 75 MG TABLET 150 MG PO (08:45)
[2025-04-18] MEDS: METOPROLOL SUCCINATE EXT REL 100 MG TABCR PO ×2 (08:45→20:31)
[2025-04-18] MEDS: SACUBITRIL/VALSARTAN 24-26 MG TABLET 1 TAB PO ×2 (08:45→20:31)
[2025-04-18] MEDS: PANTOPRAZOLE 40 MG TABLET PO (08:45)
--- NOTE | 2025-04-18 09:54 | P.PNIM_ITS ---
Assessment and Plan Assessment and Plan (1) Fall: Code(s): W19.XXXA - Unspecified fall, initial encounter Status: Acute Assessment and Plan: Head CT with no acute findings C-spine CT with no acute findings PT OT eval and treat Tetanus pT/ot ordered (2) CHF exacerbation: Qualifiers: Heart failure type: unspecified Qualified Code(s): I50.9 - Heart failure, unspecified Code(s): I50.9 - Heart failure, unspecified Status: Acute Assessment and Plan: Echo on 12/03/2024 shows EF of 60-65% 40 IV Lasix given in ED Fluid restriction Daily weight P.o. Lasix starting tomorrow Continue spironolactone on o2 now and not on it typically at home will wean if able (3) Cellulitis: Code(s): L03.90 - Cellulitis, unspecified Status: Acute Assessment and Plan: Ancef given in ED Blood cultures pending Continue Ancef follow b/c, temp curve, labs (4) Hypertension: Qualifiers: Hypertension type: primary hypertension Qualified Code(s): I10 - Essential (primary) hypertension Code(s): I10 - Essential (primary) hypertension Status: Chronic Assessment and Plan: Continue Entresto (5) Atrial fibrillation: Qualifiers: Atrial fibrillation type: unspecified chronic Qualified Code(s): I48.20 - Chronic atrial fibrillation, unspecified Code(s): I48.91 - Unspecified atrial fibrillation Status: Chronic Assessment and Plan: Continue metoprolol on eliquis discussion about risk.benefits for eliquis as recent fall (6) T2DM (type 2 diabetes mellitus): Qualifiers: Diabetes mellitus complication status: without complication Diabetes mellitus cable assembler and swager insulin use: with cable assembler and swager use Qualified Code(s): E11.9 - Type 2 diabetes mellitus without complications; Z79.4 - air pumper (current) use of insulin Code(s): E11.9 - Type 2 diabetes mellitus without complications Status: Chronic Medical Record Review I have reviewed the following patient records and this information was taken into consideration when formulating the assessment and plan.: previous labs, previous ER visits and previous hospitalizations Time Spent With Patient Time with patient: Greater than 35 minutes Subjective Date/time seen: 04/18/25 09:54 Interval history: 84-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 She fell on her face, did not lose consciousness. Has a large hematoma to forehead. Patient complains of left alegria pain. In ED: Chest x-ray shows Bilateral lower lobe infiltrate and opacity may represent edema. CT head shows no acute process, CT spine shows no acute process. Pulmonary edema found on CT spine. 40 mg IV Lasix given in ED. assuming care. Pt is seen and examined during rounds today. BC pending. On Ancef, eliquis. she is alert and oriented, bruising to forehead. denies headache. Review of Systems Review of Systems: 12 systems were reviewed and are negativ e except for as per HPI. Exam Narrative: General: well appearing, appears stated age. HEENT: normocephalic, atraumatic. Mucous membranes moist. EOMI, PERRLA, bilateral sclera anicteric, no conjunctival injection. Neck supple without JVD, lymphadenopathy, or bruit. Large hematoma to forehead Respiratory: clear bilaterally. No rales/rhonic/wheezes. Cardiovascular: Regular rate and rhythm, normal S1-S2. No murmurs, rubs, or clicks. PMI is nondisplaced, capillary refill less than 3 second. Abdomen: Soft, round, no pulsatile masses, nondistended and nontender. No rebound, no guarding. Bowel sounds present to all four quadrants. No high pitch or tinkling sounds, resonant to percussion. Extremities: No cyanosis, clubbing, Pulses are palpable 2/2. Active ROM to all four extremities. Right lower extremity alegria with erythema and blisters painful to palpation Neuro: Alert and orientated x 4. PERRLA. Cranial nerves 2-12 intact without focal deficit. Skin: Warm, dry, and intact, without rash, erythema, or lesion. Psych: pleasant, cooperative, normal speech, normal affect, no hallucinations, no dysarthia Const: General: comfortable Objective Data Vital Signs Vital Signs: Vital Signs - 24 hr 04/17/25 14:48 04/17/25 15:00 04/17/25 15:09 Temperature 97.4 F L Pulse Rate 67 69 Respiratory Rate 20 20 Blood Pressure 144/67 H 129/65 Pulse Oximetry 84 L 94 94 Oxygen Delivery Room Air Nasal Cannula Oxygen Flow Rate 2 Fraction of Inspired Oxygen 04/17/25 16:00 04/17/25 17:45 04/17/25 18:29 Temperature Pulse Rate 70 70 70 Respiratory Rate 20 23 H 24 H Blood Pressure 129/65 105/55 L 127/45 L Pulse Oximetry 95 95 96 Oxygen Delivery Oxygen Flow Rate Fraction of Inspired Oxygen 04/17/25 19:32 04/17/25 20:09 04/18/25 00:00 Temperature 97.0 F L Pulse Rate 70 80 70 Respiratory Rate 22 H 20 Blood Pressure 155/82 H 146/65 H Pulse Oximetry 96 100 Oxygen Delivery Oxygen Flow Rate Fraction of Inspired Oxygen 04/18/25 01:16 04/18/25 01:18 04/18/25 01:27 Temperature Pulse Rate 60 60 Respiratory Rate 20 20 Blood Pressure Pulse Oximetry 94 Oxygen Delivery Nasal Cannula Oxygen Flow Rate 2 Fraction of Inspired Oxygen 28 04/18/25 04:00 04/18/25 04:56 04/18/25 07:47 Temperature 97.7 F Pulse Rate 71 70 Respiratory Rate 20 Blood Pressure 140/58 L Pulse Oximetry 98 94 Oxygen Delivery Nasal Cannula Oxygen Flow Rate 2 Fraction of Inspired Oxygen 04/18/25 07:47 04/18/25 07:51 04/18/25 08:41 Temperature Pulse Rate 70 64 70 Respiratory Rate 24 H 24 H Blood Pressure 164/53 H Pulse Oximetry 91 Oxygen Delivery Oxygen Flow Rate Fraction of Inspired Oxygen 04/18/25 08:45 Temperature Pulse Rate 70 Respiratory Rate Blood Pressure Pulse Oximetry Oxygen Delivery Oxygen Flow Rate Fraction of Inspired Oxygen Intake/Output Intake/Output: Intake & Output 04/15/25 04/16/25 04/17/25 04/18/25 23:59 23:59 23:59 23:59 Intake Total 50 Output Total 600 Balance 50 -600 Meds/Results Medications: Active Medications Generic Name Dose Route Start Last Admin Trade Name Freq PRN Reason Stop Dose Admin Acetaminophen 650 mg 04/17/25 21:00 04/18/25 06:24 Acetaminophen 325 Mg Tablet PO Not Given Q6HR [facility] Albuterol/Ipratropium 3 ml 04/18/25 02:00 04/18/25 07:45 Ipratropium 0.5 Mg/Albuterol Sulfate 2.5 Mg (Base) Ampul.Neb 3 Ml INHALATION [address] [facility] Administration Alprazolam 0.25 mg 04/17/25 21:24 Alprazolam (*Crx) 0.25 Mg Tablet PO DAILY PRN Anxiety Apixaban 5 mg 04/18/25 09:00 04/18/25 08:44 Apixaban 5 Mg Tablet PO 5 mg BID JAIME Administration Atorvastatin Calcium 80 mg 04/18/25 21:00 Atorvastatin 40 Mg Tablet PO HS JAIME Buspirone HCl 5 mg 04/17/25 21:24 Buspirone Hcl 5 Mg Tablet PO BID PRN Anxiety Clopidogrel Bisulfate 75 mg 04/18/25 09:00 04/18/25 08:44 Clopidogrel Bisulfate 75 Mg Tablet PO 75 mg DAILY JAIME Administration Dextrose 12.5 gm 04/17/25 21:26 Dextrose 50% 25 Gm/50 Ml Syringe IV PUSH PRN PRN Hypoglycemia Protocol Docusate Sodium 100 mg 04/18/25 09:00 04/18/25 08:44 Docusate Sodium 100 Mg Capsule PO Not Given Q12HR JAIME Furosemide 20 mg 04/18/25 09:00 04/18/25 08:45 Furosemide 20 Mg Tablet PO 20 mg BID JAIME Administration Glucagon 1 mg 04/17/25 21:26 Glucagon For Inj 1 Mg Vial IM PRN PRN Hypoglycemia Protocol Glucose 15 gm 04/17/25 21:26 Glucose Oral Gel 15 Gm Of Glucse In 37.5 Gm Tube PO PRN PRN Hypoglycemia Protocol Cefazolin Sodium 1 gm/ Sodium 50 mls @ 100 mls/hr 04/18/25 04:00 04/18/25 04:36 Chloride IVPB 100 mls/hr Q12H JAIME Administration Dextrose 1,000 mls @ 100 mls/hr 04/17/25 21:26 Dextrose 5% 1,000 Ml IVPB PRN PRN Hypoglycemia Protocol Insulin Aspart 2 - 5 units 04/18/25 08:00 04/18/25 08:36 Insulin Aspart (*Bkc) 100 Units/Ml SUB-Q Not Given TIDWM [facility] Protocol Insulin Glargine 10 units 04/18/25 21:00 Insulin Glargine (*Bkc) 100 Units/Ml SUB-Q HS [facility] Metoprolol Succinate 100 mg 04/18/25 09:00 04/18/25 08:45 Metoprolol Succinate Ext Rel 100 Mg Tabcr PO 100 mg Q12HR JAIME Administration Oxycodone HCl 5 mg 04/17/25 20:38 04/17/25 21:00 Oxycodone Hcl (*Crx) 5 Mg Tab Ir PO 5 mg Q4H PRN Administration Pain Rated 4-6 Oxycodone HCl 10 mg 04/17/25 20:38 Oxycodone Hcl (*Crx) 5 Mg Tab Ir PO Q4H PRN Pain Rated 7-10 Pantoprazole Sodium 40 mg 04/18/25 09:00 04/18/25 08:45 Pantoprazole 40 Mg Tablet PO 40 mg QAM JAIME Administration Sacubitril/Valsartan 1 tab 04/18/25 09:00 04/18/25 08:45 Sacubitril/Valsartan 24-26 Mg Tablet PO 1 tab Q12HR JAIME Administration Spironolactone 12.5 mg 04/18/25 09:00 04/18/25 08:45 Spironolactone 12.5 Mg Tablet PO 12.5 mg QAM JAIME Administration Venlafaxine HCl 150 mg 04/18/25 09:00 04/18/25 08:45 Venlafaxine Hcl 75 Mg Tablet PO 150 mg DAILY JAIME Administration Radiology Results: ITS Impressions Head CT 04/17/25 16:29 Impression: 1.No acute intracranial abnormality. Cervical Spine CT 04/17/25 16:46 IMPRESSION: 1. Severe cervical spondylosis with no acute osseous abnormality. 2. Mild pulmonary edema at the apices of lungs. Chest X-Ray 04/17/25 17:01 IMPRESSION: Bilateral lower lobe infiltrate and opacity may represent edema. Labs Labs: Laboratory Results - last 24 hr 04/17/25 04/18/25 04/18/25 15:41 04:47 07:46 WBC 5.3 5.9 RBC 4.47 4.37 Hgb 14.0 13.6 Hct 43.5 42.5 MCV 97.3 97.3 MCH 31.3 31.1 MCHC 32.2 32.0 RDW 15.4 H 15.1 H Plt Count 176 162 MPV 9.8 9.6 Immature Gran % (Auto) 0.6 H 0.3 Neut % (Auto) 76.2 H 75.7 H Lymph % (Auto) 12.4 L 12.5 L Johnston % (Auto) 7.7 9.0 H Eos % (Auto) 2.3 1.7 Baso % (Auto) 0.8 0.8 Lymph # (Auto) 0.66 L 0.74 L Johnston # (Auto) 0.4 0.5 Eos # (Auto) 0.1 0.1 Baso # (Auto) 0.0 0.1 Abs Immat Gran (auto) 0.03 0.02 Absolute Neuts (auto) 4.1 4.5 Absolute Nucleated RBC 0.000 0.020 H Nucleated RBC % 0.0 0.3 H Sodium 139 139 Potassium 4.6 4.3 Chloride 105 105 Carbon Dioxide 28 31 H Anion Gap 6 3 L BUN 22 H 21 H Creatinine 1.02 H 1.06 H Estim Creat Clear Calc Not Reportable Not Reportable Estimated GFR 52 L 50 L Glucose 178 H 146 H POC Capillary Glucose 140 H Lactic Acid 1.6 Calcium 9.7 9.4 Quality VTE Prophylaxis VTE prophylaxis: mechanical ordered and pharmacologic ordered
[2025-04-18] MEDS: ACETAMINOPHEN 325 MG TABLET 650 MG PO ×3 (12:18→23:13)
[2025-04-18] MEDS: oxyCODONE HCL (*CRX) 5 MG TAB IR PO (16:46)
[2025-04-18] MEDS: INSULIN ASPART (*BKC) 100 UNITS/ML SUB-Q (17:32)
[2025-04-18] MEDS: DOCUSATE SODIUM 100 MG CAPSULE PO (20:31)
[2025-04-18] MEDS: ATORVASTATIN 40 MG TABLET 80 MG PO (20:31)
[2025-04-18] MEDS: INSULIN GLARGINE (*BKC) 100 UNITS/ML 10 UNITS SUB-Q (20:40)
[2025-04-19] VITALS (23 sets, daily range): BP systolic 92–148; BP diastolic 33–58; PULSE 68–95; RESP 16–22; TEMP 36.6–36.8; O2SAT 90–99
[2025-04-19] MEDS: IPRATROPIUM 0.5 MG/ALBUTEROL SULFATE 2.5 MG (BASE) AMPUL.NEB 3 ML INHALATION ×4 (02:17→21:34)
[2025-04-19] MEDS: ceFAZolin 1 GM in SODIUM CHLORIDE 0.9% IV 50 ML 100 ML IVPB ×2 (03:17→15:00)
[2025-04-19 05:31] LABS: Hematocrit 39.2 % (37.0-47.0); Hemoglobin 12.7 g/dL (12.0-15.0); Mean Corpuscular HGB Conc 32.4 g/dl (32-36); Mean Corpuscular Hemoglobin 31.3 pg (26-34); Mean Corpuscular Volume 96.6 fl (80-100); Platelet Count Result 154 k/mm3 (150-375); Red Blood Count 4.06 M/mm3 (4.2-5.4); White Blood Count 6.0 K/mm3 (4.5-10.0)
[2025-04-19 05:42] LABS: Anion Gap 3 mmol/L (4-12); Blood Urea Nitrogen 23 mg/dL (7-17); Calcium 9.1 mg/dL (8.4-10.2); Carbon Dioxide 29 mmol/L (22-30); Chloride 106 mmol/L (98-107); Estimated Glomerular Filt Rate 46; Glucose 180 mg/dL (65-110); Potassium 4.2 mmol/L (3.4-5.0); Sodium 138 mmol/L (137-145)
[2025-04-19] MEDS: ACETAMINOPHEN 325 MG TABLET 650 MG PO ×3 (05:44→17:05)
[2025-04-19] MEDS: VENLAFAXINE HCL 75 MG TABLET 150 MG PO (10:08)
[2025-04-19] MEDS: ALPRAZolam (*CRX) 0.25 MG TABLET PO ×2 (10:08→21:09)
[2025-04-19] MEDS: PANTOPRAZOLE 40 MG TABLET PO (10:08)
[2025-04-19] MEDS: APIXABAN 5 MG TABLET PO ×2 (10:09→17:04)
[2025-04-19] MEDS: METOPROLOL SUCCINATE EXT REL 100 MG TABCR PO ×2 (10:09→20:59)
[2025-04-19] MEDS: CLOPIDOGREL BISULFATE 75 MG TABLET PO (10:09)
[2025-04-19] MEDS: SACUBITRIL/VALSARTAN 24-26 MG TABLET 1 TAB PO ×2 (10:09→20:59)
--- NOTE | 2025-04-19 11:36 | PC.NURSE ---
RN held Lasix due to low BP this morning. Rechecked BP and is stable. Med will be given late.
--- NOTE | 2025-04-19 12:15 | P.PNIM_ITS ---
Assessment and Plan Assessment and Plan (1) Fall: Code(s): W19.XXXA - Unspecified fall, initial encounter Status: Acute Assessment and Plan: Head CT with no acute findings C-spine CT with no acute findings PT OT eval and treat Tetanus pT/ot ordered (2) CHF exacerbation: Qualifiers: Heart failure type: unspecified Qualified Code(s): I50.9 - Heart failure, unspecified Code(s): I50.9 - Heart failure, unspecified Status: Acute Assessment and Plan: Echo on 12/03/2024 shows EF of 60-65% 40 IV Lasix given in ED Fluid restriction Daily weight P.o. Lasix starting tomorrow Continue spironolactone on o2 now and not on it typically at home will wean if able i/o reviewed remains on oxygen- continue to wean as tolerated (3) Cellulitis: Code(s): L03.90 - Cellulitis, unspecified Status: Acute Assessment and Plan: Ancef given in ED Blood cultures pending Continue Ancef follow b/c, temp curve, labs (4) Hypertension: Qualifiers: Hypertension type: primary hypertension Qualified Code(s): I10 - Essential (primary) hypertension Code(s): I10 - Essential (primary) hypertension Status: Chronic Assessment and Plan: Continue Entresto I/O reviewed (5) Atrial fibrillation: Qualifiers: Atrial fibrillation type: unspecified chronic Qualified Code(s): I48.20 - Chronic atrial fibrillation, unspecified Code(s): I48.91 - Unspecified atrial fibrillation Status: Chronic Assessment and Plan: Continue metoprolol on eliquis discussion about risk.benefits for eliquis as recent fall (6) T2DM (type 2 diabetes mellitus): Qualifiers: Diabetes mellitus terminal worker insulin use: with terminal worker use Diabetes mellitus complication status: without complication Qualified Code(s): E11.9 - Type 2 diabetes mellitus without complications; Z79.4 - penitentiary (current) use of insulin Code(s): E11.9 - Type 2 diabetes mellitus without complications Status: Chronic Assessment and Plan: hypoglycemia protocol [facility] checks /hs lantus 10 units at Medical Record Review I have reviewed the following patient records and this information was taken into consideration when formulating the assessment and plan.: previous labs Time Spent With Patient Time with patient: 25 - 35 minutes Subjective Date/time seen: 04/19/25 12:15 Interval history: 84-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 She fell on her face, did not lose consciousness. Has a large hematoma to forehead. Patient complains of left alegria pain. In ED: Chest x-ray shows Bilateral lower lobe infiltrate and opacity may represent edema. CT head shows no acute process, CT spine shows no acute process. Pulmonary edema found on CT spine. 40 mg IV Lasix given in ED. assuming care. Pt is seen and examined during rounds today. BC pending. On Ancef, coni. she is alert and oriented, bruising to forehead. denies headache. 04/19- pt is doing well. Working with PT/OT. alert, oriented. Review of Systems Review of Systems: 12 systems were reviewed and are negativ e except for as per HPI. All systems reviewed & are unremarkable except as noted in HPI and below Exam Narrative: General: well appearing, appears stated age. HEENT: normocephalic, atraumatic. Mucous membranes moist. EOMI, PERRLA, bilateral sclera anicteric, no conjunctival injection. Neck supple without JVD, lymphadenopathy, or bruit. Large hematoma to forehead Respiratory: clear bilaterally. No rales/rhonic/wheezes. Cardiovascular: Regular rate and rhythm, normal S1-S2. No murmurs, rubs, or clicks. PMI is nondisplaced, capillary refill less than 3 second. Abdomen: Soft, round, no pulsatile masses, nondistended and nontender. No rebound, no guarding. Bowel sounds present to all four quadrants. No high pitch or tinkling sounds, resonant to percussion. Extremities: No cyanosis, clubbing, Pulses are palpable 2/2. Active ROM to all four extremities. Right lower extremity alegria with erythema and blisters painful to palpation Neuro: Alert and orientated x 4. PERRLA. Cranial nerves 2-12 intact without focal deficit. Skin: Warm, dry, and intact, without rash, erythema, or lesion. Psych: pleasant, cooperative, normal speech, normal affect, no hallucinations, no dysarthia Const: General: comfortable Objective Data Vital Signs Vital Signs: Vital Signs - 24 hr 04/18/25 13:00 04/18/25 13:23 04/18/25 13:35 Temperature Pulse Rate 74 Respiratory Rate 24 H Blood Pressure Pulse Oximetry Oxygen Delivery Nasal Cannula Nasal Cannula Oxygen Flow Rate 2 2 Fraction of Inspired Oxygen 04/18/25 13:45 04/18/25 14:38 04/18/25 16:00 Temperature 97.2 F L Pulse Rate 73 90 74 Respiratory Rate 24 H 20 Blood Pressure 129/67 Pulse Oximetry 93 Oxygen Delivery Oxygen Flow Rate Fraction of Inspired Oxygen 04/18/25 20:00 04/18/25 20:31 04/18/25 20:53 Temperature 97.2 F L Pulse Rate 70 57 L 70 Respiratory Rate 20 Blood Pressure 118/50 L Pulse Oximetry 92 Oxygen Delivery Oxygen Flow Rate Fraction of Inspired Oxygen 04/19/25 00:00 04/19/25 02:18 04/19/25 02:20 Temperature Pulse Rate 70 70 Respiratory Rate 20 Blood Pressure Pulse Oximetry 90 Oxygen Delivery Nasal Cannula Oxygen Flow Rate 2 Fraction of Inspired Oxygen 04/19/25 02:23 04/19/25 04:00 04/19/25 06:00 Temperature 98.2 F Pulse Rate 74 70 71 Respiratory Rate 20 16 Blood Pressure 146/58 H Pulse Oximetry 94 Oxygen Delivery Oxygen Flow Rate Fraction of Inspired Oxygen 04/19/25 08:00 04/19/25 08:44 04/19/25 08:44 Temperature Pulse Rate 70 70 70 Respiratory Rate 20 20 Blood Pressure Pulse Oximetry 95 Oxygen Delivery Nasal Cannula Oxygen Flow Rate 2 Fraction of Inspired Oxygen 04/19/25 08:55 04/19/25 10:05 04/19/25 10:05 Temperature 97.8 F Pulse Rate 72 71 Respiratory Rate 20 22 H Blood Pressure 92/45 L Pulse Oximetry 93 93 Oxygen Delivery Nasal Cannula Oxygen Flow Rate 3 Fraction of Inspired Oxygen 28 04/19/25 10:09 04/19/25 10:11 04/19/25 10:55 Temperature Pulse Rate 70 95 Respiratory Rate Blood Pressure 127/33 L 130/54 L Pulse Oximetry 94 Oxygen Delivery Oxygen Flow Rate Fraction of Inspired Oxygen Intake/Output Intake/Output: Intake & Output 04/16/25 04/17/25 04/18/25 04/19/25 23:59 23:59 23:59 23:59 Intake Total 50 490 220 Output Total 1600 700 Balance 40 -1818 -604 Meds/Results Medications: Active Medications Generic Name Dose Route Start Last Admin Trade Name Freq PRN Reason Stop Dose Admin Acetaminophen 650 mg 04/17/25 21:00 04/19/25 05:44 Acetaminophen 325 Mg Tablet PO 650 mg Q6HR JAIME Administration Albuterol/Ipratropium 3 ml 04/18/25 02:00 04/19/25 08:44 Ipratropium 0.5 Mg/Albuterol Sulfate 2.5 Mg (Base) Ampul.Neb 3 Ml INHALATION 3 ml Q6HRT JAIME Administration Alprazolam 0.25 mg 04/17/25 21:24 04/19/25 10:08 Alprazolam (*Crx) 0.25 Mg Tablet PO 0.25 mg DAILY PRN Administration Anxiety Apixaban 5 mg 04/18/25 09:00 04/19/25 10:09 Apixaban 5 Mg Tablet PO 5 mg BID JAIME Administration Atorvastatin Calcium 80 mg 04/18/25 21:00 04/18/25 20:31 Atorvastatin 40 Mg Tablet PO 80 mg HS JAIME Administration Buspirone HCl 5 mg 04/17/25 21:24 04/19/25 10:08 Buspirone Hcl 5 Mg Tablet PO 5 mg BID PRN Administration Anxiety Clopidogrel Bisulfate 75 mg 04/18/25 09:00 04/19/25 10:09 Clopidogrel Bisulfate 75 Mg Tablet PO 75 mg DAILY JAIME Administration Dextrose 12.5 gm 04/17/25 21:26 Dextrose 50% 25 Gm/50 Ml Syringe IV PUSH PRN PRN Hypoglycemia Protocol Docusate Sodium 100 mg 04/18/25 09:00 04/19/25 10:09 Docusate Sodium 100 Mg Capsule PO Not Given Q12HR JAIME Furosemide 20 mg 04/18/25 09:00 04/18/25 16:46 Furosemide 20 Mg Tablet PO 20 mg BID JAIME Administration Glucagon 1 mg 04/17/25 21:26 Glucagon For Inj 1 Mg Vial IM PRN PRN Hypoglycemia Protocol Glucose 15 gm 04/17/25 21:26 Glucose Oral Gel 15 Gm Of Glucse In 37.5 Gm Tube PO PRN PRN Hypoglycemia Protocol Cefazolin Sodium 1 gm/ Sodium 50 mls @ 100 mls/hr 04/18/25 04:00 04/19/25 03:17 Chloride IVPB 100 mls/hr Q12H JAIME Administration Dextrose 1,000 mls @ 100 mls/hr 04/17/25 21:26 Dextrose 5% 1,000 Ml IVPB PRN PRN Hypoglycemia Protocol Insulin Aspart 2 - 5 units 04/18/25 08:00 04/18/25 17:32 Insulin Aspart (*Bkc) 100 Units/Ml SUB-Q 2 units TIDWM JAIME Administration Protocol Insulin Glargine 10 units 04/18/25 21:00 04/18/25 20:40 Insulin Glargine (*Bkc) 100 Units/Ml SUB-Q 10 units HS JAIME Administration Metoprolol Succinate 100 mg 04/18/25 09:00 04/19/25 10:09 Metoprolol Succinate Ext Rel 100 Mg Tabcr PO 100 mg Q12HR JAIME Administration Oxycodone HCl 5 mg 04/17/25 20:38 04/18/25 16:46 Oxycodone Hcl (*Crx) 5 Mg Tab Ir PO 5 mg Q4H PRN Administration Pain Rated 4-6 Oxycodone HCl 10 mg 04/17/25 20:38 Oxycodone Hcl (*Crx) 5 Mg Tab Ir PO Q4H PRN Pain Rated 7-10 Pantoprazole Sodium 40 mg 04/18/25 09:00 04/19/25 10:08 Pantoprazole 40 Mg Tablet PO 40 mg QAM JAIME Administration Sacubitril/Valsartan 1 tab 04/18/25 09:00 04/19/25 10:09 Sacubitril/Valsartan 24-26 Mg Tablet PO 1 tab Q12HR JAIME Administration Spironolactone 12.5 mg 04/18/25 09:00 04/19/25 10:09 Spironolactone 12.5 Mg Tablet PO 12.5 mg QAM JAIME Administration Venlafaxine HCl 150 mg 04/18/25 09:00 04/19/25 10:08 Venlafaxine Hcl 75 Mg Tablet PO 150 mg DAILY JAIME Administration Radiology Results: ITS Impressions Head CT 04/17/25 16:29 Impression: 1.No acute intracranial abnormality. Cervical Spine CT 04/17/25 16:46 IMPRESSION: 1. Severe cervical spondylosis with no acute osseous abnormality. 2. Mild pulmonary edema at the apices of lungs. Chest X-Ray 04/17/25 17:01 IMPRESSION: Bilateral lower lobe infiltrate and opacity may represent edema. Labs Labs: Laboratory Results - last 24 hr 04/18/25 04/18/25 04/19/25 16:37 20:36 05:14 WBC 6.0 RBC 4.06 L Hgb 12.7 Hct 39.2 MCV 96.6 MCH 31.3 MCHC 32.4 RDW 15.2 H Plt Count 154 MPV 9.5 Sodium 138 Potassium 4.2 Chloride 106 Carbon Dioxide 29 Anion Gap 3 L BUN 23 H Creatinine 1.14 H Estim Creat Clear Calc Not Reportable Estimated GFR 46 L Glucose 180 H POC Capillary Glucose 245 H 175 H Calcium 9.1 04/19/25 04/19/25 07:52 11:24 WBC RBC Hgb Hct MCV MCH MCHC RDW Plt Count MPV Sodium Potassium Chloride Carbon Dioxide Anion Gap BUN Creatinine Estim Creat Clear Calc Estimated GFR Glucose POC Capillary Glucose 180 H 279 H Calcium Quality VTE Prophylaxis VTE prophylaxis: mechanical ordered and pharmacologic ordered
[2025-04-19] MEDS: FUROSEMIDE 20 MG TABLET PO ×2 (13:03→17:04)
[2025-04-19] MEDS: INSULIN ASPART (*BKC) 100 UNITS/ML SUB-Q ×2 (13:04→16:50)
[2025-04-19] MEDS: INSULIN GLARGINE (*BKC) 100 UNITS/ML 10 UNITS SUB-Q (20:57)
[2025-04-19] MEDS: ATORVASTATIN 40 MG TABLET 80 MG PO (20:59)
[2025-04-19] MEDS: DOCUSATE SODIUM 100 MG CAPSULE PO (20:59)
[2025-04-20] VITALS (21 sets, daily range): BP systolic 104–148; BP diastolic 37–65; PULSE 69–78; RESP 18–20; TEMP 36.3–37.1; O2SAT 91–93
[2025-04-20] MEDS: ACETAMINOPHEN 325 MG TABLET 650 MG PO ×2 (00:56→06:02)
[2025-04-20] MEDS: IPRATROPIUM 0.5 MG/ALBUTEROL SULFATE 2.5 MG (BASE) AMPUL.NEB 3 ML INHALATION ×4 (03:26→19:30)
[2025-04-20] MEDS: ceFAZolin 1 GM in SODIUM CHLORIDE 0.9% IV 50 ML 100 ML IVPB (04:51)
[2025-04-20 05:54] LABS: Hematocrit 40.2 % (37.0-47.0); Hemoglobin 12.9 g/dL (12.0-15.0); Mean Corpuscular HGB Conc 32.1 g/dl (32-36); Mean Corpuscular Hemoglobin 31.1 pg (26-34); Mean Corpuscular Volume 96.9 fl (80-100); Platelet Count Result 149 k/mm3 (150-375); Red Blood Count 4.15 M/mm3 (4.2-5.4); White Blood Count 4.6 K/mm3 (4.5-10.0)
[2025-04-20 06:16] LABS: Anion Gap 2 mmol/L (4-12); Blood Urea Nitrogen 20 mg/dL (7-17); Calcium 8.9 mg/dL (8.4-10.2); Carbon Dioxide 31 mmol/L (22-30); Chloride 105 mmol/L (98-107); Estimated Glomerular Filt Rate 58; Glucose 122 mg/dL (65-110); Potassium 3.7 mmol/L (3.4-5.0); Sodium 138 mmol/L (137-145)
[2025-04-20] MEDS: METOPROLOL SUCCINATE EXT REL 100 MG TABCR PO ×2 (10:18→21:29)
[2025-04-20] MEDS: VENLAFAXINE HCL 75 MG TABLET 150 MG PO (10:18)
[2025-04-20] MEDS: SACUBITRIL/VALSARTAN 24-26 MG TABLET 1 TAB PO ×2 (10:18→21:29)
[2025-04-20] MEDS: FUROSEMIDE 20 MG TABLET PO ×2 (10:20→18:03)
[2025-04-20] MEDS: CLOPIDOGREL BISULFATE 75 MG TABLET PO (10:20)
[2025-04-20] MEDS: DOCUSATE SODIUM 100 MG CAPSULE PO ×2 (10:20→21:30)
[2025-04-20] MEDS: PANTOPRAZOLE 40 MG TABLET PO (10:20)
[2025-04-20] MEDS: APIXABAN 5 MG TABLET PO ×2 (10:20→18:03)
[2025-04-20] MEDS: oxyCODONE HCL (*CRX) 5 MG TAB IR PO ×2 (10:25→14:59)
[2025-04-20] MEDS: INSULIN ASPART (*BKC) 100 UNITS/ML SUB-Q ×2 (11:53→18:03)
--- NOTE | 2025-04-20 14:15 | P.PNIM_ITS ---
Assessment and Plan Assessment and Plan (1) Fall: Code(s): W19.XXXA - Unspecified fall, initial encounter Status: Acute Assessment and Plan: Head CT with no acute findings C-spine CT with no acute findings PT OT eval and treat Tetanus pT/ot ordered (2) CHF exacerbation: Qualifiers: Heart failure type: unspecified Qualified Code(s): I50.9 - Heart failure, unspecified Code(s): I50.9 - Heart failure, unspecified Status: Acute Assessment and Plan: Echo on 12/03/2024 shows EF of 60-65% 40 IV Lasix given in ED Fluid restriction Daily weight P.o. Lasix starting tomorrow Continue spironolactone on o2 now and not on it typically at home will wean if able i/o reviewed remains on oxygen- continue to wean as tolerated (3) Cellulitis: Code(s): L03.90 - Cellulitis, unspecified Status: Acute Assessment and Plan: Ancef given in ED Blood cultures pending Continue Ancef follow b/c, temp curve, labs wound is draining now, still erythema. - will order wound swab for c/s - will escalate antibiotics to ancef 2gm q8h (4) Hypertension: Qualifiers: Hypertension type: primary hypertension Qualified Code(s): I10 - Essential (primary) hypertension Code(s): I10 - Essential (primary) hypertension Status: Chronic Assessment and Plan: Continue Entresto I/O reviewed (5) Atrial fibrillation: Qualifiers: Atrial fibrillation type: unspecified chronic Qualified Code(s): I48.20 - Chronic atrial fibrillation, unspecified Code(s): I48.91 - Unspecified atrial fibrillation Status: Chronic Assessment and Plan: Continue metoprolol on eliquis discussion about risk.benefits for eliquis as recent fall (6) T2DM (type 2 diabetes mellitus): Qualifiers: 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: with senior living use Diabetes mellitus complication status: without complication Qualified Code(s): E11.9 - Type 2 diabetes mellitus without complications; Z79.4 - food safety field specialist (current) use of insulin Code(s): E11.9 - Type 2 diabetes mellitus without complications Status: Chronic Assessment and Plan: hypoglycemia protocol [facility] checks ac/hs lantus 10 units at hs Medical Record Review I have reviewed the following patient records and this information was taken into consideration when formulating the assessment and plan.: previous labs, previous ER visits, previous hospitalizations and previous clinic visits Time Spent With Patient Time with patient: Greater than 35 minutes Subjective Date/time seen: 04/20/25 14:15 Interval history: 84-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 She fell on her face, did not lose consciousness. Has a large hematoma to forehead. Patient complains of left alegria pain. In ED: Chest x-ray shows Bilateral lower lobe infiltrate and opacity may represent edema. CT head shows no acute process, CT spine shows no acute process. Pulmonary edema found on CT spine. 40 mg IV Lasix given in ED. assuming care. Pt is seen and examined during rounds today. BC pending. On Ancef, eliquis. she is alert and oriented, bruising to forehead. denies headache. 04/19- pt is doing well. Working with PT/OT. alert, oriented. 04/20 - wound is open and small area draining. will swab for c/s. Pt is down to 1l per NC. she is doing well, no n/v/d. NO chest pain, no sob. Review of Systems Review of Systems: 12 systems were reviewed and are negativ e except for as per HPI. All systems reviewed & are unremarkable except as noted in HPI and below Exam Narrative: General: well appearing, appears stated age. HEENT: normocephalic, atraumatic. Mucous membranes moist. EOMI, PERRLA, bilateral sclera anicteric, no conjunctival injection. Neck supple without JVD, lymphadenopathy, or bruit. Large hematoma to forehead Respiratory: clear bilaterally. No rales/rhonic/wheezes. Cardiovascular: Regular rate and rhythm, normal S1-S2. No murmurs, rubs, or clicks. PMI is nondisplaced, capillary refill less than 3 second. Abdomen: Soft, round, no pulsatile masses, nondistended and nontender. No rebound, no guarding. Bowel sounds present to all four quadrants. No high pitch or tinkling sounds, resonant to percussion. Extremities: No cyanosis, clubbing, Pulses are palpable 2/2. Active ROM to all four extremities. Right lower extremity alegria with erythema and blisters painful to palpation Neuro: Alert and orientated x 4. PERRLA. Cranial nerves 2-12 intact without focal deficit. Skin: Warm, dry, and intact, without rash, erythema, or lesion. Psych: pleasant, cooperative, normal speech, normal affect, no hallucinations, no dysarthia Const: General: comfortable Objective Data Vital Signs Vital Signs: Vital Signs - 24 hr 04/19/25 16:00 04/19/25 20:00 04/19/25 20:00 Temperature Pulse Rate 71 69 72 Respiratory Rate 20 Blood Pressure Pulse Oximetry 98 Oxygen Delivery Nasal Cannula Oxygen Flow Rate 3 Fraction of Inspired Oxygen 28 04/19/25 20:59 04/19/25 21:34 04/19/25 21:36 Temperature Pulse Rate 71 68 Respiratory Rate 18 Blood Pressure Pulse Oximetry 99 Oxygen Delivery Nasal Cannula Oxygen Flow Rate 2 Fraction of Inspired Oxygen 04/19/25 21:39 04/19/25 22:00 04/20/25 00:00 Temperature 98 F Pulse Rate 70 69 69 Respiratory Rate 18 20 Blood Pressure 148/53 H Pulse Oximetry 98 Oxygen Delivery Oxygen Flow Rate Fraction of Inspired Oxygen 04/20/25 03:27 04/20/25 04:00 04/20/25 06:00 Temperature 97.9 F Pulse Rate 72 71 73 Respiratory Rate 20 20 Blood Pressure 132/50 L Pulse Oximetry 93 Oxygen Delivery Oxygen Flow Rate Fraction of Inspired Oxygen 04/20/25 07:38 04/20/25 07:38 04/20/25 07:44 Temperature Pulse Rate 78 71 Respiratory Rate 20 20 Blood Pressure Pulse Oximetry 92 Oxygen Delivery Nasal Cannula Oxygen Flow Rate 1 Fraction of Inspired Oxygen 04/20/25 08:00 04/20/25 10:05 04/20/25 10:18 Temperature Pulse Rate 71 71 Respiratory Rate Blood Pressure Pulse Oximetry 92 Oxygen Delivery Nasal Cannula Oxygen Flow Rate 1 Fraction of Inspired Oxygen 04/20/25 10:22 04/20/25 12:00 04/20/25 13:25 Temperature Pulse Rate 72 73 71 Respiratory Rate 18 20 Blood Pressure 148/50 H Pulse Oximetry 92 Oxygen Delivery Oxygen Flow Rate Fraction of Inspired Oxygen 04/20/25 13:33 Temperature Pulse Rate 74 Respiratory Rate 20 Blood Pressure Pulse Oximetry Oxygen Delivery Oxygen Flow Rate Fraction of Inspired Oxygen Intake/Output Intake/Output: Intake & Output 04/17/25 04/18/25 04/19/25 04/20/25 23:59 23:59 23:59 23:59 Intake Total 50 490 860 630 Output Total 1600 910 700 Balance 50 -1110 -50 -70 Meds/Results Medications: Active Medications Generic Name Dose Route Start Last Admin Trade Name Freq PRN Reason Stop Dose Admin Acetaminophen 650 mg 04/17/25 21:00 04/20/25 11:53 Acetaminophen 325 Mg Tablet PO Not Given Q6HR JAIME Albuterol/Ipratropium 3 ml 04/18/25 02:00 04/20/25 13:25 Ipratropium 0.5 Mg/Albuterol Sulfate 2.5 Mg (Base) Ampul.Neb 3 Ml INHALATION 3 ml Q6HRT JAIME Administration Alprazolam 0.25 mg 04/17/25 21:24 04/19/25 21:09 Alprazolam (*Crx) 0.25 Mg Tablet PO 0.25 mg DAILY PRN Administration Anxiety Apixaban 5 mg 04/18/25 09:00 04/20/25 10:20 Apixaban 5 Mg Tablet PO 5 mg BID JAIME Administration Atorvastatin Calcium 80 mg 04/18/25 21:00 04/19/25 20:59 Atorvastatin 40 Mg Tablet PO 80 mg HS JAIME Administration Buspirone HCl 5 mg 04/17/25 21:24 04/20/25 10:20 Buspirone Hcl 5 Mg Tablet PO 5 mg BID PRN Administration Anxiety Clopidogrel Bisulfate 75 mg 04/18/25 09:00 04/20/25 10:20 Clopidogrel Bisulfate 75 Mg Tablet PO 75 mg DAILY JAIME Administration Dextrose 12.5 gm 04/17/25 21:26 Dextrose 50% 25 Gm/50 Ml Syringe IV PUSH PRN PRN Hypoglycemia Protocol Docusate Sodium 100 mg 04/18/25 09:00 04/20/25 10:20 Docusate Sodium 100 Mg Capsule PO 100 mg Q12HR JAIME Administration Furosemide 20 mg 04/18/25 09:00 04/20/25 10:20 Furosemide 20 Mg Tablet PO 20 mg BID JAIME Administration Glucagon 1 mg 04/17/25 21:26 Glucagon For Inj 1 Mg Vial IM PRN PRN Hypoglycemia Protocol Glucose 15 gm 04/17/25 21:26 Glucose Oral Gel 15 Gm Of Glucse In 37.5 Gm Tube PO PRN PRN Hypoglycemia Protocol Dextrose 1,000 mls @ 100 mls/hr 04/17/25 21:26 Dextrose 5% 1,000 Ml IVPB PRN PRN Hypoglycemia Protocol Cefazolin Sodium 2 gm/ Sodium 50 mls @ 100 mls/hr 04/20/25 14:00 Chloride IVPB Q8H JAIME Insulin Aspart 2 - 5 units 04/18/25 08:00 04/20/25 11:53 Insulin Aspart (*Bkc) 100 Units/Ml SUB-Q 2 units TIDWM JAIME Administration Protocol Insulin Glargine 10 units 04/18/25 21:00 04/19/25 20:57 Insulin Glargine (*Bkc) 100 Units/Ml SUB-Q 10 units HS JAIME Administration Metoprolol Succinate 100 mg 04/18/25 09:00 04/20/25 10:18 Metoprolol Succinate Ext Rel 100 Mg Tabcr PO 100 mg Q12HR JAIME Administration Oxycodone HCl 5 mg 04/17/25 20:38 04/20/25 10:25 Oxycodone Hcl (*Crx) 5 Mg Tab Ir PO 5 mg Q4H PRN Administration Pain Rated 4-6 Oxycodone HCl 10 mg 04/17/25 20:38 Oxycodone Hcl (*Crx) 5 Mg Tab Ir PO Q4H PRN Pain Rated 7-10 Pantoprazole Sodium 40 mg 04/18/25 09:00 04/20/25 10:20 Pantoprazole 40 Mg Tablet PO 40 mg QAM JAIME Administration Sacubitril/Valsartan 1 tab 04/18/25 09:00 04/20/25 10:18 Sacubitril/Valsartan 24-26 Mg Tablet PO 1 tab Q12HR JAIME Administration Spironolactone 12.5 mg 04/18/25 09:00 04/20/25 10:18 Spironolactone 12.5 Mg Tablet PO 12.5 mg QAM JAIME Administration Venlafaxine HCl 150 mg 04/18/25 09:00 04/20/25 10:18 Venlafaxine Hcl 75 Mg Tablet PO 150 mg DAILY JAIME Administration Radiology Results: ITS Impressions Head CT 04/17/25 16:29 Impression: 1.No acute intracranial abnormality. Cervical Spine CT 04/17/25 16:46 IMPRESSION: 1. Severe cervical spondylosis with no acute osseous abnormality. 2. Mild pulmonary edema at the apices of lungs. Chest X-Ray 04/17/25 17:01 IMPRESSION: Bilateral lower lobe infiltrate and opacity may represent edema. Labs Labs: Laboratory Results - last 24 hr 04/19/25 04/19/25 04/20/25 16:27 20:48 05:26 WBC 4.6 RBC 4.15 L Hgb 12.9 Hct 40.2 MCV 96.9 MCH 31.1 MCHC 32.1 RDW 15.3 H Plt Count 149 L MPV 9.6 Sodium 138 Potassium 3.7 Chloride 105 Carbon Dioxide 31 H Anion Gap 2 L BUN 20 H Creatinine 0.93 Estim Creat Clear Calc Not Reportable Estimated GFR 58 L Glucose 122 H POC Capillary Glucose 211 H 201 H Calcium 8.9 04/20/25 04/20/25 07:31 11:31 WBC RBC Hgb Hct MCV MCH MCHC RDW Plt Count MPV Sodium Potassium Chloride Carbon Dioxide Anion Gap BUN Creatinine Estim Creat Clear Calc Estimated GFR Glucose POC Capillary Glucose 124 H 218 H Calcium Quality VTE Prophylaxis VTE prophylaxis: mechanical ordered and pharmacologic ordered
[2025-04-20] MEDS: ceFAZolin 2 GM in SODIUM CHLORIDE 0.9% IV 50 ML 100 ML IVPB ×2 (14:58→21:31)
[2025-04-20] MEDS: ATORVASTATIN 40 MG TABLET 80 MG PO (21:30)
[2025-04-20] MEDS: INSULIN GLARGINE (*BKC) 100 UNITS/ML 10 UNITS SUB-Q (21:33)
[2025-04-21] VITALS (23 sets, daily range): BP systolic 136–182; BP diastolic 35–52; PULSE 70–77; RESP 16–34; TEMP 36.2–36.5; O2SAT 89–96
[2025-04-21] MEDS: ALPRAZolam (*CRX) 0.25 MG TABLET PO ×2 (00:53→20:46)
[2025-04-21] MEDS: IPRATROPIUM 0.5 MG/ALBUTEROL SULFATE 2.5 MG (BASE) AMPUL.NEB 3 ML INHALATION ×4 (01:47→20:17)
[2025-04-21 05:10] LABS: Hematocrit 45.0 % (37.0-47.0); Hemoglobin 14.4 g/dL (12.0-15.0); Mean Corpuscular HGB Conc 32.0 g/dl (32-36); Mean Corpuscular Hemoglobin 31.2 pg (26-34); Mean Corpuscular Volume 97.6 fl (80-100); Platelet Count Result 174 k/mm3 (150-375); Red Blood Count 4.61 M/mm3 (4.2-5.4); White Blood Count 6.4 K/mm3 (4.5-10.0)
[2025-04-21 05:33] LABS: Anion Gap 5 mmol/L (4-12); Blood Urea Nitrogen 18 mg/dL (7-17); Calcium 9.5 mg/dL (8.4-10.2); Carbon Dioxide 32 mmol/L (22-30); Chloride 102 mmol/L (98-107); Estimated Glomerular Filt Rate > 60; Glucose 184 mg/dL (65-110); Potassium 4.2 mmol/L (3.4-5.0); Sodium 139 mmol/L (137-145)
[2025-04-21] MEDS: ceFAZolin 2 GM in SODIUM CHLORIDE 0.9% IV 50 ML 100 ML IVPB ×3 (05:42→21:02)
[2025-04-21] MEDS: ACETAMINOPHEN 325 MG TABLET 650 MG PO ×2 (05:44→17:30)
[2025-04-21] MEDS: VENLAFAXINE HCL 75 MG TABLET 150 MG PO (08:55)
[2025-04-21] MEDS: SACUBITRIL/VALSARTAN 24-26 MG TABLET 1 TAB PO ×2 (08:55→20:45)
[2025-04-21] MEDS: DOCUSATE SODIUM 100 MG CAPSULE PO ×2 (08:56→20:45)
[2025-04-21] MEDS: APIXABAN 5 MG TABLET PO ×2 (08:56→17:30)
[2025-04-21] MEDS: oxyCODONE HCL (*CRX) 5 MG TAB IR PO (08:56)
[2025-04-21] MEDS: PANTOPRAZOLE 40 MG TABLET PO (08:56)
[2025-04-21] MEDS: CLOPIDOGREL BISULFATE 75 MG TABLET PO (08:56)
[2025-04-21] MEDS: FUROSEMIDE 20 MG TABLET PO (08:56)
[2025-04-21] MEDS: METOPROLOL SUCCINATE EXT REL 100 MG TABCR PO ×2 (08:56→20:46)
--- NOTE | 2025-04-21 09:20 | P.PNIM_ITS ---
Assessment and Plan Assessment and Plan (1) Fall: Code(s): W19.XXXA - Unspecified fall, initial encounter Status: Acute Assessment and Plan: Head CT with no acute findings C-spine CT with no acute findings PT OT eval and treat Tetanus pT/ot ordered (2) CHF exacerbation: Qualifiers: Heart failure type: unspecified Qualified Code(s): I50.9 - Heart failure, unspecified Code(s): I50.9 - Heart failure, unspecified Status: Acute Assessment and Plan: Echo on 12/03/2024 shows EF of 60-65% 40 IV Lasix given in ED Fluid restriction Daily weight P.o. Lasix starting tomorrow Continue spironolactone on o2 now and not on it typically at home will wean if able i/o reviewed remains on oxygen- continue to wean as tolerated (3) Cellulitis: Code(s): L03.90 - Cellulitis, unspecified Status: Acute Assessment and Plan: Ancef given in ED Blood cultures pending Continue Ancef follow b/c, temp curve, labs wound is draining now, still erythema. - will order wound swab for c/s - will escalate antibiotics to ancef 2gm q8h dressing is c/d/i wound care recommendations reviewed: silver gel and dressing daily (4) Hypertension: Qualifiers: Hypertension type: primary hypertension Qualified Code(s): I10 - Essential (primary) hypertension Code(s): I10 - Essential (primary) hypertension Status: Chronic Assessment and Plan: Continue Entresto I/O reviewed (5) Atrial fibrillation: Qualifiers: Atrial fibrillation type: unspecified chronic Qualified Code(s): I48.20 - Chronic atrial fibrillation, unspecified Code(s): I48.91 - Unspecified atrial fibrillation Status: Chronic Assessment and Plan: Continue metoprolol on eliquis discussion about risk.benefits for eliquis as recent fall (6) T2DM (type 2 diabetes mellitus): Qualifiers: Diabetes mellitus complication status: without complication 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 Qualified Code(s): E11.9 - Type 2 diabetes mellitus without complications; Z79.4 - correction (current) use of insulin Code(s): E11.9 - Type 2 diabetes mellitus without complications Status: Chronic Assessment and Plan: hypoglycemia protocol SS BS checks ac/hs lantus 10 units at hs Plan desats at night, so would prob need to be eval for JACK will order apnea link tonight -anticipate discharge in the next day or two Medical Record Review I have reviewed the following patient records and this information was taken into consideration when formulating the assessment and plan.: previous labs and previous hospitalizations Time Spent With Patient Time with patient: 25 - 35 minutes Subjective Date/time seen: 04/21/25 09:20 Interval history: 84-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 She fell on her face, did not lose consciousness. Has a large hematoma to forehead. Patient complains of left alegria pain. In ED: Chest x-ray shows Bilateral lower lobe infiltrate and opacity may represent edema. CT head shows no acute process, CT spine shows no acute process. Pulmonary edema found on CT spine. 40 mg IV Lasix given in ED. assuming care. Pt is seen and examined during rounds today. BC pending. On Ancef, eliquis. she is alert and oriented, bruising to forehead. denies headache. 04/19- pt is doing well. Working with PT/OT. alert, oriented. 04/20 - wound is open and small area draining. will swab for c/s. Pt is down to 1l per NC. she is doing well, no n/v/d. NO chest pain, no sob. 04/21 wound care saw pt yesterday. pt is doing well today, resting iwth eyes closed. Desats at night so had to be on oxygen overnight. Will pron need to follow up with pcp as an outpt for sleep study but not sure if she would want to do that Review of Systems Review of Systems: 12 systems were reviewed and are negativ e except for as per HPI. All systems reviewed & are unremarkable except as noted in HPI and below Exam Narrative: General: well appearing, appears stated age. HEENT: normocephalic, atraumatic. Mucous membranes moist. EOMI, PERRLA, bilateral sclera anicteric, no conjunctival injection. Neck supple without JVD, lymphadenopathy, or bruit. Large hematoma to forehead Respiratory: clear bilaterally. No rales/rhonic/wheezes. Cardiovascular: Regular rate and rhythm, normal S1-S2. No murmurs, rubs, or clicks. PMI is nondisplaced, capillary refill less than 3 second. Abdomen: Soft, round, no pulsatile masses, nondistended and nontender. No rebound, no guarding. Bowel sounds present to all four quadrants. No high pitch or tinkling sounds, resonant to percussion. Extremities: No cyanosis, clubbing, Pulses are palpable 2/2. Active ROM to all four extremities. Right lower extremity alegria with erythema and blisters painful to palpation Neuro: Alert and orientated x 4. PERRLA. Cranial nerves 2-12 intact without focal deficit. Skin: Warm, dry, and intact, without rash, erythema, or lesion. Psych: pleasant, cooperative, normal speech, normal affect, no hallucinations, no dysarthia Const: General: comfortable Objective Data Vital Signs Vital Signs: Vital Signs - 24 hr 04/20/25 10:05 04/20/25 10:18 04/20/25 10:22 Temperature Pulse Rate 71 72 Respiratory Rate 18 Blood Pressure 148/50 H Pulse Oximetry 92 92 Oxygen Delivery Nasal Cannula Oxygen Flow Rate 1 Fraction of Inspired Oxygen 04/20/25 12:00 04/20/25 13:25 04/20/25 13:33 Temperature Pulse Rate 73 71 74 Respiratory Rate 20 20 Blood Pressure Pulse Oximetry Oxygen Delivery Oxygen Flow Rate Fraction of Inspired Oxygen 04/20/25 14:00 04/20/25 16:00 04/20/25 19:30 Temperature 98.8 F Pulse Rate 71 73 72 Respiratory Rate 18 20 Blood Pressure 134/37 L Pulse Oximetry 93 Oxygen Delivery Oxygen Flow Rate Fraction of Inspired Oxygen 04/20/25 19:34 04/20/25 19:40 04/20/25 20:00 Temperature Pulse Rate 76 69 Respiratory Rate 20 20 Blood Pressure Pulse Oximetry 91 93 Oxygen Delivery Nasal Cannula Nasal Cannula Oxygen Flow Rate 1 1 Fraction of Inspired Oxygen 28 04/20/25 20:00 04/20/25 21:18 04/20/25 21:29 Temperature 97.4 F L Pulse Rate 70 69 69 Respiratory Rate 20 Blood Pressure 104/65 Pulse Oximetry 93 Oxygen Delivery Oxygen Flow Rate Fraction of Inspired Oxygen 04/21/25 00:00 04/21/25 01:47 04/21/25 01:57 Temperature Pulse Rate 70 76 71 Respiratory Rate 20 20 Blood Pressure Pulse Oximetry Oxygen Delivery Oxygen Flow Rate Fraction of Inspired Oxygen 04/21/25 04:00 04/21/25 05:44 04/21/25 08:00 Temperature 97.1 F L Pulse Rate 74 71 Respiratory Rate 20 Blood Pressure 182/52 H Pulse Oximetry 94 92 Oxygen Delivery Nasal Cannula Oxygen Flow Rate 1 Fraction of Inspired Oxygen 04/21/25 08:00 04/21/25 08:31 04/21/25 08:33 Temperature Pulse Rate 71 71 Respiratory Rate 18 Blood Pressure Pulse Oximetry 92 Oxygen Delivery Nasal Cannula Oxygen Flow Rate 1 Fraction of Inspired Oxygen 04/21/25 08:39 04/21/25 08:56 Temperature Pulse Rate 70 72 Respiratory Rate 18 Blood Pressure Pulse Oximetry Oxygen Delivery Oxygen Flow Rate Fraction of Inspired Oxygen Intake/Output Intake/Output: Intake & Output 04/18/25 04/19/25 04/20/25 04/21/25 23:59 23:59 23:59 23:59 Intake Total 075 082 6959 250 Output Total 1600 910 975 600 Balance -1110 -50 65 -350 Meds/Results Medications: Active Medications Generic Name Dose Route Start Last Admin Trade Name Freq PRN Reason Stop Dose Admin Acetaminophen 650 mg 04/17/25 21:00 04/21/25 05:44 Acetaminophen 325 Mg Tablet PO 650 mg Q6HR JAIME Administration Albuterol/Ipratropium 3 ml 04/18/25 02:00 04/21/25 08:31 Ipratropium 0.5 Mg/Albuterol Sulfate 2.5 Mg (Base) Ampul.Neb 3 Ml INHALATION 3 ml Q6HRT JAIME Administration Alprazolam 0.25 mg 04/17/25 21:24 04/21/25 00:53 Alprazolam (*Crx) 0.25 Mg Tablet PO 0.25 mg DAILY PRN Administration Anxiety Apixaban 5 mg 04/18/25 09:00 04/21/25 08:56 Apixaban 5 Mg Tablet PO 5 mg BID JAIME Administration Atorvastatin Calcium 80 mg 04/18/25 21:00 04/20/25 21:30 Atorvastatin 40 Mg Tablet PO 80 mg HS JAIME Administration Buspirone HCl 5 mg 04/17/25 21:24 04/21/25 08:56 Buspirone Hcl 5 Mg Tablet PO 5 mg BID PRN Administration Anxiety Clopidogrel Bisulfate 75 mg 04/18/25 09:00 04/21/25 08:56 Clopidogrel Bisulfate 75 Mg Tablet PO 75 mg DAILY JAIME Administration Dextrose 12.5 gm 04/17/25 21:26 Dextrose 50% 25 Gm/50 Ml Syringe IV PUSH PRN PRN Hypoglycemia Protocol Docusate Sodium 100 mg 04/18/25 09:00 04/21/25 08:56 Docusate Sodium 100 Mg Capsule PO 100 mg Q12HR JAIME Administration Furosemide 20 mg 04/18/25 09:00 04/21/25 08:56 Furosemide 20 Mg Tablet PO 20 mg BID JAIME Administration Glucagon 1 mg 04/17/25 21:26 Glucagon For Inj 1 Mg Vial IM PRN PRN Hypoglycemia Protocol Glucose 15 gm 04/17/25 21:26 Glucose Oral Gel 15 Gm Of Glucse In 37.5 Gm Tube PO PRN PRN Hypoglycemia Protocol Dextrose 1,000 mls @ 100 mls/hr 04/17/25 21:26 Dextrose 5% 1,000 Ml IVPB PRN PRN Hypoglycemia Protocol Cefazolin Sodium 2 gm/ Sodium 50 mls @ 100 mls/hr 04/20/25 14:00 04/21/25 05:42 Chloride IVPB 100 mls/hr Q8H JAIME Administration Insulin Aspart 2 - 5 units 04/18/25 08:00 04/21/25 08:50 Insulin Aspart (*Bkc) 100 Units/Ml SUB-Q Not Given TIDWM [facility] Protocol Insulin Glargine 10 units 04/18/25 21:00 04/20/25 21:33 Insulin Glargine (*Bkc) 100 Units/Ml SUB-Q 10 units HS JAIME Administration Metoprolol Succinate 100 mg 04/18/25 09:00 04/21/25 08:56 Metoprolol Succinate Ext Rel 100 Mg Tabcr PO 100 mg Q12HR JAIME Administration Oxycodone HCl 5 mg 04/17/25 20:38 04/21/25 08:56 Oxycodone Hcl (*Crx) 5 Mg Tab Ir PO 5 mg Q4H PRN Administration Pain Rated 4-6 Oxycodone HCl 10 mg 04/17/25 20:38 Oxycodone Hcl (*Crx) 5 Mg Tab Ir PO Q4H PRN Pain Rated 7-10 Pantoprazole Sodium 40 mg 04/18/25 09:00 04/21/25 08:56 Pantoprazole 40 Mg Tablet PO 40 mg QAM JAIME Administration Sacubitril/Valsartan 1 tab 04/18/25 09:00 04/21/25 08:55 Sacubitril/Valsartan 24-26 Mg Tablet PO 1 tab Q12HR JAIME Administration Spironolactone 12.5 mg 04/18/25 09:00 04/21/25 08:56 Spironolactone 12.5 Mg Tablet PO 12.5 mg QAM JAIME Administration Venlafaxine HCl 150 mg 04/18/25 09:00 04/21/25 08:55 Venlafaxine Hcl 75 Mg Tablet PO 150 mg DAILY JAIME Administration Radiology Results: ITS Impressions Head CT 04/17/25 16:29 Impression: 1.No acute intracranial abnormality. Cervical Spine CT 04/17/25 16:46 IMPRESSION: 1. Severe cervical spondylosis with no acute osseous abnormality. 2. Mild pulmonary edema at the apices of lungs. Chest X-Ray 04/17/25 17:01 IMPRESSION: Bilateral lower lobe infiltrate and opacity may represent edema. Labs Labs: Laboratory Results - last 24 hr 04/20/25 04/20/25 04/20/25 11:31 16:26 21:17 WBC RBC Hgb Hct MCV MCH MCHC RDW Plt Count MPV Sodium Potassium Chloride Carbon Dioxide Anion Gap BUN Creatinine Estim Creat Clear Calc Estimated GFR Glucose POC Capillary Glucose 218 H 232 H 234 H Calcium 04/21/25 04/21/25 04:44 08:05 WBC 6.4 RBC 4.61 Hgb 14.4 Hct 45.0 MCV 97.6 MCH 31.2 MCHC 32.0 RDW 15.5 H Plt Count 174 MPV 9.4 Sodium 139 Potassium 4.2 Chloride 102 Carbon Dioxide 32 H Anion Gap 5 BUN 18 H Creatinine 0.85 Estim Creat Clear Calc Not Reportable Estimated GFR > 60 Glucose 184 H POC Capillary Glucose 155 H Calcium 9.5 Quality VTE Prophylaxis VTE prophylaxis: mechanical ordered and pharmacologic ordered
--- NOTE | 2025-04-21 17:27 | PM.EVENT ---
Event Note Event Note Event Note: Patient tachypneic this afternoon. Expiratory wheeze/squeak on the left, not appreciable on the right. Patient is in no apparent distress. Respiratory rate in the 30s on exam. Reviewed vital signs, no hypoxia noted on room air. Patient denies history of smoking or COPD, does have history of asthma. Will trial one time neb of levalbuterol. Additionally will exchange this evening's Lasix dose from 20 mg PO to 20 mg IV x1.
[2025-04-21] MEDS: FUROSEMIDE INJ 40 MG/4 ML VIAL 20 MG IV PUSH (17:33)
[2025-04-21] MEDS: ATORVASTATIN 40 MG TABLET 80 MG PO (20:45)
[2025-04-21] MEDS: INSULIN GLARGINE (*BKC) 100 UNITS/ML 10 UNITS SUB-Q (20:46)
[2025-04-22] VITALS (78 sets, daily range): BP systolic 73–178; BP diastolic 23–84; PULSE 66–89; RESP 15–174; TEMP 34–37.3; O2SAT 91–100
[2025-04-22] MEDS: ACETAMINOPHEN 325 MG TABLET 650 MG PO ×3 (01:18→12:26)
--- NOTE | 2025-04-22 03:03 | PCRCNOTE ---
Patient did not receive 0200 updraft treatment due to being on an overnight oximetry study. Treatment to resume at 0800.
[2025-04-22 04:55] LABS: Hematocrit 43.0 % (37.0-47.0); Hemoglobin 13.9 g/dL (12.0-15.0); Mean Corpuscular HGB Conc 32.3 g/dl (32-36); Mean Corpuscular Hemoglobin 31.2 pg (26-34); Mean Corpuscular Volume 96.6 fl (80-100); Platelet Count Result 154 k/mm3 (150-375); Red Blood Count 4.45 M/mm3 (4.2-5.4); White Blood Count 5.4 K/mm3 (4.5-10.0)
[2025-04-22 05:18] LABS: Anion Gap 5 mmol/L (4-12); Blood Urea Nitrogen 18 mg/dL (7-17); Calcium 9.4 mg/dL (8.4-10.2); Carbon Dioxide 31 mmol/L (22-30); Chloride 101 mmol/L (98-107); Estimated Glomerular Filt Rate 58; Glucose 179 mg/dL (65-110); Potassium 3.8 mmol/L (3.4-5.0); Sodium 137 mmol/L (137-145)
[2025-04-22] MEDS: ceFAZolin 2 GM in SODIUM CHLORIDE 0.9% IV 50 ML 100 ML IVPB (05:56)
[2025-04-22] MEDS: IPRATROPIUM 0.5 MG/ALBUTEROL SULFATE 2.5 MG (BASE) AMPUL.NEB 3 ML INHALATION ×3 (08:31→21:17)
[2025-04-22] MEDS: METOPROLOL SUCCINATE EXT REL 100 MG TABCR PO (10:16)
[2025-04-22] MEDS: APIXABAN 5 MG TABLET PO (10:17)
[2025-04-22] MEDS: VENLAFAXINE HCL 75 MG TABLET 150 MG PO (10:17)
[2025-04-22] MEDS: FUROSEMIDE 20 MG TABLET PO (10:17)
[2025-04-22] MEDS: SACUBITRIL/VALSARTAN 24-26 MG TABLET 1 TAB PO (10:18)
[2025-04-22] MEDS: PANTOPRAZOLE 40 MG TABLET PO (10:18)
[2025-04-22] MEDS: DOCUSATE SODIUM 100 MG CAPSULE PO (10:18)
[2025-04-22] MEDS: CLOPIDOGREL BISULFATE 75 MG TABLET PO (10:18)
[2025-04-22] MEDS: INSULIN ASPART (*BKC) 100 UNITS/ML SUB-Q ×2 (12:27→17:47)
--- NOTE | 2025-04-22 13:30 | P.PNIM_ITS ---
Assessment and Plan Assessment and Plan (1) Fall: Code(s): W19.XXXA - Unspecified fall, initial encounter Status: Acute Assessment and Plan: Head CT with no acute findings C-spine CT with no acute findings PT OT eval and treat Tetanus pT/ot ordered (2) CHF exacerbation: Qualifiers: Heart failure type: unspecified Qualified Code(s): I50.9 - Heart failure, unspecified Code(s): I50.9 - Heart failure, unspecified Status: Acute Assessment and Plan: Echo on 12/03/2024 shows EF of 60-65% 40 IV Lasix given in ED Fluid restriction Daily weight P.o. Lasix starting tomorrow Continue spironolactone on o2 now and not on it typically at home will wean if able i/o reviewed remains on oxygen- continue to wean as tolerated (3) Cellulitis: Code(s): L03.90 - Cellulitis, unspecified Status: Acute Assessment and Plan: Ancef given in ED Blood cultures pending Continue Ancef follow b/c, temp curve, labs wound is draining now, still erythema. - will order wound swab for c/s - will escalate antibiotics to ancef 2gm q8h dressing is c/d/i wound care recommendations reviewed: silver gel and dressing daily 04/19 will stop cefazolin based on prelim wound culture and add van and ceftriaxone 2 gm q24h as erythema is still present and cellulitis didnot improve much pt remains afebrile, wbc stable, kidney function stable (4) Hypertension: Qualifiers: Hypertension type: primary hypertension Qualified Code(s): I10 - Essential (primary) hypertension Code(s): I10 - Essential (primary) hypertension Status: Chronic Assessment and Plan: Continue Entresto I/O reviewed (5) Atrial fibrillation: Qualifiers: Atrial fibrillation type: unspecified chronic Qualified Code(s): I48.20 - Chronic atrial fibrillation, unspecified Code(s): I48.91 - Unspecified atrial fibrillation Status: Chronic Assessment and Plan: Continue metoprolol on eliquis discussion about risk.benefits for eliquis as recent fall (6) T2DM (type 2 diabetes mellitus): Qualifiers: Diabetes mellitus complication status: without complication 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 Qualified Code(s): E11.9 - Type 2 diabetes mellitus without complications; Z79.4 - skilled nursing (current) use of insulin Code(s): E11.9 - Type 2 diabetes mellitus without complications Status: Chronic Assessment and Plan: hypoglycemia protocol SS BS checks ac/hs lantus 10 units at hs Plan desats at night, so would prob need to be eval for JACK will order apnea link tonight -anticipate discharge in the next day or two Medical Record Review I have reviewed the following patient records and this information was taken into consideration when formulating the assessment and plan.: previous labs Time Spent With Patient Time with patient: 25 - 35 minutes Subjective Date/time seen: 04/22/25 13:30 Interval history: 84-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 She fell on her face, did not lose consciousness. Has a large hematoma to forehead. Patient complains of left alegria pain. In ED: Chest x-ray shows Bilateral lower lobe infiltrate and opacity may represent edema. CT head shows no acute process, CT spine shows no acute process. Pulmonary edema found on CT spine. 40 mg IV Lasix given in ED. assuming care. Pt is seen and examined during rounds today. BC pending. On Ancef, eliquis. she is alert and oriented, bruising to forehead. denies headache. 04/19- pt is doing well. Working with PT/OT. alert, oriented. 04/20 - wound is open and small area draining. will swab for c/s. Pt is down to 1l per NC. she is doing well, no n/v/d. NO chest pain, no sob. 04/21 wound care saw pt yesterday. pt is doing well today, resting iwth eyes closed. Desats at night so had to be on oxygen overnight. Will prob need to follow up with pcp as an outpt for sleep study but not sure if she would want to do that 04/22 not much improvement with wound still redness and painful. She is doing well otherwise. Reports that she does have panic attacks at times and has to take xanax 0.25 mg Review of Systems Review of Systems: 12 systems were reviewed and are negativ e except for as per HPI. All systems reviewed & are unremarkable except as noted in HPI and below Exam Narrative: General: well appearing, appears stated age. HEENT: normocephalic, atraumatic. Mucous membranes moist. EOMI, PERRLA, bilateral sclera anicteric, no conjunctival injection. Neck supple without JVD, lymphadenopathy, or bruit. Large hematoma to forehead Respiratory: clear bilaterally. No rales/rhonic/wheezes. Cardiovascular: Regular rate and rhythm, normal S1-S2. No murmurs, rubs, or clicks. PMI is nondisplaced, capillary refill less than 3 second. Abdomen: Soft, round, no pulsatile masses, nondistended and nontender. No rebound, no guarding. Bowel sounds present to all four quadrants. No high pitch or tinkling sounds, resonant to percussion. Extremities: No cyanosis, clubbing, Pulses are palpable 2/2. Active ROM to all four extremities. Right lower extremity alegria with erythema and blisters painful to palpation. Neuro: Alert and orientated x 4. PERRLA. Cranial nerves 2-12 intact without focal deficit. Skin: Warm, dry, and intact, erythema to rt lower anterior aspect, blister to interior calf. Scant amount of drainage. swelling Psych: pleasant, cooperative, normal speech, normal affect, no hallucinations, no dysarthia Const: General: comfortable Objective Data Vital Signs Vital Signs: Vital Signs - 24 hr 04/21/25 13:34 04/21/25 13:49 04/21/25 13:54 Temperature Pulse Rate 75 72 Respiratory Rate 17 16 Blood Pressure Pulse Oximetry 96 Oxygen Delivery Room Air Oxygen Flow Rate Fraction of Inspired Oxygen 04/21/25 15:14 04/21/25 16:00 04/21/25 20:00 Temperature 97.2 F L Pulse Rate 71 72 Respiratory Rate 34 H Blood Pressure 136/41 L Pulse Oximetry 95 92 Oxygen Delivery Nasal Cannula Oxygen Flow Rate 0.5 Fraction of Inspired Oxygen 04/21/25 20:00 04/21/25 20:13 04/21/25 20:17 Temperature 97.7 F Pulse Rate 70 71 71 Respiratory Rate 18 16 Blood Pressure 145/35 H Pulse Oximetry 93 Oxygen Delivery Oxygen Flow Rate Fraction of Inspired Oxygen 04/21/25 20:19 04/21/25 20:22 04/21/25 20:46 Temperature Pulse Rate 71 77 Respiratory Rate 16 Blood Pressure Pulse Oximetry 93 Oxygen Delivery Nasal Cannula Oxygen Flow Rate 0.5 Fraction of Inspired Oxygen 04/21/25 22:16 04/22/25 00:00 04/22/25 04:00 Temperature Pulse Rate 72 72 71 Respiratory Rate Blood Pressure Pulse Oximetry 89 L Oxygen Delivery Room Air Oxygen Flow Rate Fraction of Inspired Oxygen 21 04/22/25 05:41 04/22/25 08:36 04/22/25 08:36 Temperature 97.1 F L Pulse Rate 69 70 Respiratory Rate 20 16 Blood Pressure 150/41 H Pulse Oximetry 92 91 Oxygen Delivery Room Air Oxygen Flow Rate Fraction of Inspired Oxygen 21 04/22/25 08:42 04/22/25 10:16 Temperature Pulse Rate 71 74 Respiratory Rate 16 Blood Pressure Pulse Oximetry Oxygen Delivery Oxygen Flow Rate Fraction of Inspired Oxygen Intake/Output Intake/Output: Intake & Output 04/19/25 04/20/25 04/21/25 04/22/25 23:59 23:59 23:59 23:59 Intake Total 860 1040 620 700 Output Total 015 566 8878 850 Balance -50 65 -830 -150 Meds/Results Medications: Active Medications Generic Name Dose Route Start Last Admin Trade Name Freq PRN Reason Stop Dose Admin Acetaminophen 650 mg 04/17/25 21:00 04/22/25 12:26 Acetaminophen 325 Mg Tablet PO 650 mg Q6HR JAIME Administration Albuterol/Ipratropium 3 ml 04/18/25 02:00 04/22/25 08:31 Ipratropium 0.5 Mg/Albuterol Sulfate 2.5 Mg (Base) Ampul.Neb 3 Ml INHALATION 3 ml Q6HRT JAIME Administration Alprazolam 0.25 mg 04/17/25 21:24 04/21/25 20:46 Alprazolam (*Crx) 0.25 Mg Tablet PO 0.25 mg DAILY PRN Administration Anxiety Apixaban 5 mg 04/18/25 09:00 04/22/25 10:17 Apixaban 5 Mg Tablet PO 5 mg BID JAIME Administration Atorvastatin Calcium 80 mg 04/18/25 21:00 04/21/25 20:45 Atorvastatin 40 Mg Tablet PO 80 mg HS JAIME Administration Buspirone HCl 5 mg 04/17/25 21:24 04/21/25 20:45 Buspirone Hcl 5 Mg Tablet PO 5 mg BID PRN Administration Anxiety Clopidogrel Bisulfate 75 mg 04/18/25 09:00 04/22/25 10:18 Clopidogrel Bisulfate 75 Mg Tablet PO 75 mg DAILY JAIME Administration Dextrose 12.5 gm 04/17/25 21:26 Dextrose 50% 25 Gm/50 Ml Syringe IV PUSH PRN PRN Hypoglycemia Protocol Docusate Sodium 100 mg 04/18/25 09:00 04/22/25 10:18 Docusate Sodium 100 Mg Capsule PO 100 mg Q12HR JAIME Administration Furosemide 20 mg 04/18/25 09:00 04/22/25 10:17 Furosemide 20 Mg Tablet PO 20 mg BID JAIME Administration Glucagon 1 mg 04/17/25 21:26 Glucagon For Inj 1 Mg Vial IM PRN PRN Hypoglycemia Protocol Glucose 15 gm 04/17/25 21:26 Glucose Oral Gel 15 Gm Of Glucse In 37.5 Gm Tube PO PRN PRN Hypoglycemia Protocol Dextrose 1,000 mls @ 100 mls/hr 04/17/25 21:26 Dextrose 5% 1,000 Ml IVPB PRN PRN Hypoglycemia Protocol Ceftriaxone Sodium 2 gm/ 100 mls @ 200 mls/hr 04/22/25 13:00 Sodium Chloride IVPB Q24H JAIME Vancomycin HCl 1,500 mg in 500 mls @ 250 mls/hr 04/22/25 14:00 Vancomycin 1,500 Mg/Ns 500 Ml IVPB Q24H JAIME Insulin Aspart 2 - 5 units 04/18/25 08:00 04/22/25 12:27 Insulin Aspart (*Bkc) 100 Units/Ml SUB-Q 5 units TIDWM JAIME Administration Protocol Insulin Glargine 10 units 04/18/25 21:00 04/21/25 20:46 Insulin Glargine (*Bkc) 100 Units/Ml SUB-Q 10 units HS JAIME Administration Metoprolol Succinate 100 mg 04/18/25 09:00 04/22/25 10:16 Metoprolol Succinate Ext Rel 100 Mg Tabcr PO 100 mg Q12HR JAIME Administration Oxycodone HCl 5 mg 04/17/25 20:38 04/21/25 08:56 Oxycodone Hcl (*Crx) 5 Mg Tab Ir PO 5 mg Q4H PRN Administration Pain Rated 4-6 Oxycodone HCl 10 mg 04/17/25 20:38 Oxycodone Hcl (*Crx) 5 Mg Tab Ir PO Q4H PRN Pain Rated 7-10 Pantoprazole Sodium 40 mg 04/18/25 09:00 04/22/25 10:18 Pantoprazole 40 Mg Tablet PO 40 mg QAM JAIME Administration Sacubitril/Valsartan 1 tab 04/18/25 09:00 04/22/25 10:18 Sacubitril/Valsartan 24-26 Mg Tablet PO 1 tab Q12HR JAIME Administration Spironolactone 12.5 mg 04/18/25 09:00 04/22/25 10:16 Spironolactone 12.5 Mg Tablet PO 12.5 mg QAM JAIME Administration Venlafaxine HCl 150 mg 04/18/25 09:00 04/22/25 10:17 Venlafaxine Hcl 75 Mg Tablet PO 150 mg DAILY JAIME Administration Radiology Results: ITS Impressions Head CT 04/17/25 16:29 Impression: 1.No acute intracranial abnormality. Cervical Spine CT 04/17/25 16:46 IMPRESSION: 1. Severe cervical spondylosis with no acute osseous abnormality. 2. Mild pulmonary edema at the apices of lungs. Chest X-Ray 04/17/25 17:01 IMPRESSION: Bilateral lower lobe infiltrate and opacity may represent edema. Labs Labs: Laboratory Results - last 24 hr 04/21/25 04/21/25 04/22/25 17:08 20:08 04:47 WBC 5.4 RBC 4.45 Hgb 13.9 Hct 43.0 MCV 96.6 MCH 31.2 MCHC 32.3 RDW 15.0 H Plt Count 154 MPV 9.4 Sodium 137 Potassium 3.8 Chloride 101 Carbon Dioxide 31 H Anion Gap 5 BUN 18 H Creatinine 0.92 Estim Creat Clear Calc Not Reportable Estimated GFR 58 L Glucose 179 H POC Capillary Glucose 170 H 237 H Calcium 9.4 04/22/25 04/22/25 07:41 11:39 WBC RBC Hgb Hct MCV MCH MCHC RDW Plt Count MPV Sodium Potassium Chloride Carbon Dioxide Anion Gap BUN Creatinine Estim Creat Clear Calc Estimated GFR Glucose POC Capillary Glucose 153 H 389 H Calcium Quality VTE Prophylaxis VTE prophylaxis: mechanical ordered and pharmacologic ordered
[2025-04-22] MEDS: cefTRIAXone 2 GM in SODIUM CHLORIDE 0.9% IV 100 ML 200 ML IVPB (14:00)
[2025-04-22] MEDS: ETOMIDATE 20 MG/10 ML AMPUL IV PUSH (14:30)
[2025-04-22] MEDS: ROCURONIUM BROMIDE 50 MG/5 ML VIAL IV PUSH (14:32)
--- NOTE | 2025-04-22 14:53 | WPDCNINT2 ---
Assessment and Plan Assessment and plan (1) Acute hypoxic respiratory failure: Code(s): J96.01 - Acute respiratory failure with hypoxia Status: Acute Assessment and Plan: 04/22/2025, I was called to the rapid response as patient was getting her breathing treatment, went unresponsive and hypoxic upon arrival to the room patient had a pulse, oxygen was being bagged, O2 sats were 96-98%, blood pressures were stable. Patient was unresponsive, skin was mottled from the abdomen to her lower extremities. I decided to intubate her on the medical floor. -04/22: Patient was intubated successfully -currently on CMV mode of ventilation, peep of 8, 100% FiO2 for now, ABGs have been ordered, will adjust ventilator once ABGs a result -continue bronchodilators -sedated with fentanyl and Versed infusion, maintain RASS of 0 to -2 -daily SBT and SAT -will obtain CT head, chest, abdomen, pelvis and right lower extremity (2) Cellulitis: Code(s): L03.90 - Cellulitis, unspecified Status: Acute Assessment and Plan: Right lower extremity cellulitis with ruptured blister and purulent drainage 04/17: Blood cultures negative x2 04/20: Right lower extremity wound culture shows g negative coccobacilli Patient will ceftriaxone, and vancomycin (04/18). DC ceftriaxone -will continue vancomycin (04/18), will add Zosyn -CT right lower extremity to rule out necrotizing fasciitis (3) Fall: Code(s): W19.XXXA - Unspecified fall, initial encounter Status: Acute Assessment and Plan: Patient presented on 04/17/2025 after having a fall, she hit her face and head but did not lose any consciousness. She is on Eliquis and Plavix at home -04/17: CT brain on admission did not show any acute intracranial abnormality, remote right cerebellar lacunar infarct -04/17: CT spine: Is this showed severe cervical spondylosis with no acute osseous abnormality, mild pulmonary edema at the apices of the lung (4) Atrial fibrillation: Qualifiers: Atrial fibrillation type: unspecified chronic Qualified Code(s): I48.20 - Chronic atrial fibrillation, unspecified Code(s): I48.91 - Unspecified atrial fibrillation Status: Chronic Assessment and Plan: Patient has a history of atrial fibrillation, has a leadless pacemaker as seen on the chest x-ray -patient on apixaban and Plavix at home which was restarted at the hospital on 04/18/2025 -04/22: acute encephalopathy will rule out any head bleed, currently will hold apixaban and Plavix (5) Acute exacerbation of CHF (congestive heart failure): Code(s): I50.9 - Heart failure, unspecified Status: Acute Assessment and Plan: Patient has a history of congestive heart failure, on Lasix, spironolactone, Entresto, will continue to hold for now given patient does get intubated, with adequate blood pressures -will continue to hold all NG DMT meds for now, we introduced them slowly once patient is more stable (6) HLD (hyperlipidemia): Code(s): E78.5 - Hyperlipidemia, unspecified Status: Acute Assessment and Plan: Continue atorvastatin (7) Hypertension: Qualifiers: Hypertension type: primary hypertension Qualified Code(s): I10 - Essential (primary) hypertension Code(s): I10 - Essential (primary) hypertension Status: Chronic Assessment and Plan: Hold all antihypertensives as patient is intubated on positive pressure ventilation and sedation (8) T2DM (type 2 diabetes mellitus): Qualifiers: 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 If patient remains hyperglycemic will add long-acting insulin Plan DVT prophylaxis: Patient on Eliquis and Plavix, will continue to hold for now Stress ulcer prophylaxis: Protonix IV Nutrition: NPO for now Code Status: Full code Critical Care Time Spent: 79 minutes Due to a high probability of clinically significant, life threatening deterioration, the patient required my highest level of preparedness to intervene emergently and I personally spent this critical care time directly and personally managing the patient. This critical care time included obtaining a history; examining the patient; pulse oximetry; ordering and review of studies; arranging urgent treatment with development of a management plan; evaluation of patient's response to treatment; frequent reassessment; and discussions with other providers. It was exclusive of separately billable procedures and treating other patients and teaching time. Please see Assessment and Plan section and the rest of the note for further information on patient assessment and treatment This dictation may have been done utilizing a voice recognition system. Attempts have been made to correct errors. However, there may be uncorrected grammatical, spelling, and recognitions errors present. Harm Reduction Worker Consult Note Consult date: 04/22/25 Reason for consult: Acute respiratory failure, encephalopathy/unresponsive HPI: Lizabeth Perry is a 84 year old female with significant past medical history of hyperlipidemia, hypertension, peripheral vascular disease, history of leadless pacemaker, myocardial infarction, history of congestive heart failure, atrial fibrillation, history of DVT in September 2024 on Eliquis at home, insulin dependent diabetes presented the ED on 04/17/2025 after she had a fall, hit her face and head on the floor. She did not lose any consciousness, she also required oxygen as she was desaturating on room air. Swelling of bilateral lower extremities with pitting edema noted in the ER, right leg was found to be erythematous, tender and consistent with cellulitis. Patient was started on ceftriaxone and vanc. 04/22/2025: I was called to the rapid response as patient was unresponsive, encephalopathic, hypoxic, had skin mottling. Pupils were equal and reactive, not responding to verbal commands. Patient was intubated on the medical floor and brought to the ICU for further management. In the ICU central line in the right IJ was inserted. Patient is hemodynamically stable, paced rhythm, good O2 sats on mechanical ventilation, mottling has resolved. Morales catheter was inserted. The primary hospitalist did discuss with patient's son, who stated that she wanted her to be a full code and wanted intubation and mechanical ventilation Review of Systems Review of Systems: ROS unobtainable: Yes unobtainable due to endotracheal tube, unobtainable due to medical condition and unobtainable due to mental status [facility] Past Medical History Medical History (Updated 04/22/25 @ 16:08 by Natalee Helton MD) HLD (hyperlipidemia) Hypertension Peripheral vascular disease History of pacemaker Myocardial infarction Congestive heart failure Atrial fibrillation Coronary artery disease Deep vein thrombosis September 2024 Insulin dependent type 2 diabetes mellitus Surgical History Surgical History History of thrombectomy right groin DVT in September 2024 Aortic valve replaced Coronary artery disease status post coronary stent insertion 3 stents placed in 2022 Family History Family History Father Diabetes mellitus Other Heart disease Social History Social History Smoking status: Never smoker Alcohol intake: former Substance use: never Substance use type: does not use Lack of Transportation: No Lack of Food: Never True Current Housing: I Have Housing Concerned About Future Housing: No Difficulty Paying Gas/Electric Bills: No Difficulty Paying for Meds: No Currently Unemployed: No Education: High School Diploma/GED Difficulty w/ Childcare or Family Care: No Living arrangements: assisted living Additional living arrangements comments: [facility] Spiritual care concerns: No Meds Home Medications and Allergies Home Medications ?Medication ?Instructions ?Recorded ?Confirmed ?Type atorvastatin 80 mg tablet 80 mg PO HS 03/20/24 04/17/25 History clopidogrel 75 mg tablet 75 mg PO DAILY 03/20/24 04/17/25 History furosemide 20 mg tablet 20 mg PO BID PRN lower leg swelling 03/20/24 04/17/25 History metoprolol succinate 100 mg 100 mg PO BID 03/20/24 04/17/25 History tablet,extended release 24 hr multivitamin with minerals 2 tablet PO DAILY 03/20/24 04/17/25 History (Hair,Skin and Nails tablet) apixaban 5 mg tablet (Eliquis) 5 mg PO BID 12/08/24 04/17/25 History insulin degludec 200 unit/mL (3 24 unit subcut DAILY 12/08/24 04/17/25 History mL) subcutaneous pen (Tresiba FlexTouch U-200 insulin) oxybutynin ER 30 mg PO HS 12/08/24 04/17/25 History pantoprazole 40 mg tablet,delayed 40 mg PO QAM 12/08/24 04/17/25 History release sacubitril 24 mg-valsartan 26 mg 1 tablet PO BID 12/08/24 04/17/25 History tablet (Entresto) semaglutide 2 mg/dose (8 mg/3 mL) 2 mg subcut WEEKLY 12/08/24 04/17/25 History subcutaneous pen injector (Ozempic) spironolactone 25 mg tablet 12.5 mg PO QAM 12/08/24 04/17/25 History alprazolam 0.25 mg tablet 0.25 mg PO DAILY PRN anxiety 03/09/25 04/17/25 History buspirone 5 mg tablet 5 mg PO BID PRN anxiety 03/09/25 04/17/25 History cetirizine 10 mg capsule (All Day 10 mg PO HS 03/09/25 04/17/25 History Allergy (cetirizine)) clobetasol 0.05 % scalp solution 1 applic topical BID 03/09/25 04/17/25 History ketoconazole 2 % topical cream 1 applic topical DAILY 03/09/25 04/17/25 History loperamide 2 mg capsule 2 mg PO DAILY PRN loose stool 03/09/25 04/17/25 History (Anti-Diarrheal (loperamide)) ofsgtykq-ygo-qjfbi acid 0.4 1 tablet PO DAILY 03/09/25 04/17/25 History mg-lycopene 300 mcg-lutein 250 mcg tablet (A Thru Z Select 50 Plus Formula) nystatin 100,000 unit/gram topical 1 applic topical BID 03/09/25 04/17/25 History powder roflumilast 0.3 % topical cream 1 applic topical DAILY 03/09/25 04/17/25 History (Zoryve) diphenhydramine 25 2 tablet PO HS 04/17/25 04/17/25 History mg-acetaminophen 500 mg tablet (Pain Relief PM) tramadol 50 mg tablet 50 mg PO Q12H PRN pain (scale 04/17/25 04/17/25 History score 6-10) venlafaxine 75 mg tablet 150 mg PO DAILY 04/17/25 04/17/25 History Allergies Allergy/AdvReac Type Severity Reaction Status Date / Time No Known Allergies Allergy Verified 04/17/25 20:14 Vital Signs Vital Signs - 24 hr 04/21/25 15:14 04/21/25 16:00 04/21/25 20:00 Temperature 97.2 F L Pulse Rate 71 72 Respiratory Rate 34 H Blood Pressure 136/41 L Pulse Oximetry 95 92 Oxygen Delivery Nasal Cannula Oxygen Flow Rate 0.5 Fraction of Inspired Oxygen 04/21/25 20:00 04/21/25 20:13 04/21/25 20:17 Temperature 97.7 F Pulse Rate 70 71 71 Respiratory Rate 18 16 Blood Pressure 145/35 H Pulse Oximetry 93 Oxygen Delivery Oxygen Flow Rate Fraction of Inspired Oxygen 04/21/25 20:19 04/21/25 20:22 04/21/25 20:46 Temperature Pulse Rate 71 77 Respiratory Rate 16 Blood Pressure Pulse Oximetry 93 Oxygen Delivery Nasal Cannula Oxygen Flow Rate 0.5 Fraction of Inspired Oxygen 04/21/25 22:16 04/22/25 00:00 04/22/25 04:00 Temperature Pulse Rate 72 72 71 Respiratory Rate Blood Pressure Pulse Oximetry 89 L Oxygen Delivery Room Air Oxygen Flow Rate Fraction of Inspired Oxygen 21 04/22/25 05:41 04/22/25 08:36 04/22/25 08:36 Temperature 97.1 F L Pulse Rate 69 70 Respiratory Rate 20 16 Blood Pressure 150/41 H Pulse Oximetry 92 91 Oxygen Delivery Room Air Oxygen Flow Rate Fraction of Inspired Oxygen 21 04/22/25 08:42 04/22/25 10:15 04/22/25 10:16 Temperature Pulse Rate 71 74 Respiratory Rate 16 Blood Pressure Pulse Oximetry 91 Oxygen Delivery Nasal Cannula Oxygen Flow Rate 2 Fraction of Inspired Oxygen 04/22/25 14:07 04/22/25 14:20 Temperature Pulse Rate 72 71 Respiratory Rate 16 30 H Blood Pressure Pulse Oximetry Oxygen Delivery Oxygen Flow Rate Fraction of Inspired Oxygen Exam Narrative: General: Intubated, sedated no acute distress HEENT:? Pupils equal and reactive, sclera is clear Neck:? Supple Respiratory:? Coarse breath sounds bilaterally, no wheezing, adequate air entry Cardiac:? Paced rhythm, rate controlled Abdomen:? Soft, nontender, nondistended, hypoactive bowel sounds, obese Extremities:? Right lower leg erythema, pitting edema, tenderness, purulent drainage from rupture of blister. No crepitus Neuro:? Intubated, sedated, does not open her eyes or follow simple commands Skin:? Multiple bruising areas on the upper and lower extremities, yeast infection in the intertriginous area Psych:? Unable to assess at this time Results Labs 04/22/25 04:47 04/22/25 04:47 Labs: Short CBC 04/22/25 Range/Units 04:47 WBC 5.4 (4.5-10.0) K/mm3 Hgb 13.9 (12.0-15.0) g/dL Hct 43.0 (37.0-47.0) % Plt Count 154 (150-375) k/mm3 [facility] 04/22/25 04:47 Sodium 137 Potassium 3.8 Chloride 101 Carbon Dioxide 31 H BUN 18 H Creatinine 0.92 Glucose 179 H Calcium 9.4 Quality VTE Prophylaxis VTE prophylaxis: pharmacologic ordered Hospitalist MIPS Advance Care Plan I have confirmed that the patient's Advanced Care Plan is present, code status is documented, or surrogate decision maker is listed in patient medical record.: Yes Medication Reconciliation I have utilized all available resources to obtain, update and review the patients current medications (includes all prescriptions, OTC, herbals, cannabis, and nutritional supplements).: Yes
[2025-04-22] MEDS: FENTANYL 2,500MCG/NS250ML(*CRX 2,500 MCG/250 ML BAG IV CONT (15:10)
[2025-04-22] MEDS: MIDAZOLAM 100MG/NS 100ML(*CRX) 100 MG/100 ML BAG IV CONT (15:10)
[2025-04-22 16:06] LABS: Hematocrit 42.1 % (37.0-47.0); Hemoglobin 13.6 g/dL (12.0-15.0); Immature Granulocyte Percent A 0.3 % (0-0.5); Lymphocytes Absolute Auto 0.29 K/mm3 (0.9-3.2); Mean Corpuscular HGB Conc 32.3 g/dl (32-36); Mean Corpuscular Hemoglobin 31.3 pg (26-34); Mean Corpuscular Volume 97.0 fl (80-100); Nucleated Red Blood Cells Absolute Auto 0.000 K/mm3 (0.0-0.012); Nucleated Red Blood Cells Perc 0.0 % (0.0-0.2); Platelet Count Result 156 k/mm3 (150-375); Red Blood Count 4.34 M/mm3 (4.2-5.4); White Blood Count 5.9 K/mm3 (4.5-10.0)
[2025-04-22 16:15] LABS: Alanine Aminotransferase 11 U/L (6-35); Albumin Level 3.3 g/dL (3.5-5.1); Alkaline Phosphatase 80 U/L (38-126); Anion Gap 7 mmol/L (4-12); Aspartate Amino Transferase 36 U/L (14-36); Bilirubin,Total 0.9 mg/dL (0.2-1.3); Blood Urea Nitrogen 19 mg/dL (7-17); Calcium 9.0 mg/dL (8.4-10.2); Carbon Dioxide 31 mmol/L (22-30); Chloride 101 mmol/L (98-107); Estimated Glomerular Filt Rate 52; Glucose 241 mg/dL (65-110); Lipase 61 U/L (23-300); Magnesium 1.2 mg/dL (1.6-2.3); Potassium 3.8 mmol/L (3.4-5.0); Sodium 139 mmol/L (137-145); Total Protein 6.3 g/dL (6.3-8.2)
[2025-04-22 16:17] LABS: Ammonia < 9 umol/L (9-30); INR 1.9; Prothrombin Time 21.2 Seconds (11.1-14.7)
[2025-04-22 16:18] LABS: Partial Thromboplastin Time 34.6 Seconds (22.3-36.8)
[2025-04-22 16:32] LABS: Troponin I 0.191 ng/mL (0.000-0.034)
--- NOTE | 2025-04-22 16:40 | WPDPROCEDUR ---
Procedures Intubation Intubation Date: 04/22/25 Intubation Time: 14:50 Consent: Patient is a full code, primary doctor spoke to patient's son who is the POA on the phone and he confirmed that patient is full code and wanted to be intubated A pre-procedural Time-Out was completed immediately before starting the procedure and confirmed: Patient Identification, Site, Procedure, Patient Position and the Availability of Requisite Equipment: Yes Sedative: etomidate Paralytic: rocuronium Laryngoscope: fiber optic video scope Assist device used: fiber optic device ET tube size: 7.5 Tube secured depth (cm): 23 Tube secured location: lips Tube placement confirmation: visualized tube passing through cords, equal breath sounds bilaterally, no breath sounds over epigastrium and confirmation by capnometry Patient tolerated procedure: well and no complications Intubation complications: none
--- NOTE | 2025-04-22 16:42 | WPDPROCEDUR ---
Procedures Central Line Placement Right IJ: Central Line Date: 04/22/25 Central Line Time: 15:40 Discussed w/ the patient/family/POA,the placement of a central venous catheter, including its clinical necessity/indication & associated potential risks, benifits and alternatives.: Yes The patient/family/POA understand(s) and acknowledge(s) the need to proceed with central venous catheter insertion as an important element of the patient's clinical management.: Yes Consent: I have discussed with the patient and/or surrogate, the non-emergent placement of a central venous catheter, including its clinical necessity/indication and associated potential risks and complications. The patient and/or surrogate understand(s) and acknowledge(s) the need to proceed with central venous catheter insertion as an important element of the patient's clinical management. Time Out Performed: Yes Patient Position: supine Patient placed on monitor/pulse ox: Yes Provider Prep: mask, sterile gown, sterile gloves, Max. sterile barrier precautions, cap and hand hygiene with conventional soap/water or alcohol based hand rub Central line prep: 2% Chlorhexidine scrub Local anesthesia used: lidocaine 1% Amount of anesthesia used (ml): 2 Sterile US Technique with sterile gel/sterile probe covers: Yes Central line lumen inserted: triple [place]: 7 Length (cm): 16 Depth of Insertion (cm): 16 Post Procedure: sutured in place, good blood return, all ports aspirated, flushed, capped, transparent dressing, hemostatic product, antimicrobial product, securement product and aseptic technique maintained throughout procedure Post procedure x-ray: tip of catheter in good position and no pneumothorax seen Patient tolerated procedure: well Complications: none
[2025-04-22 17:02] LABS: Alveolar/Arterial O2 Gradient 150.7 mmHg; Carboxyhemoglobin 1.4 % THb (0-2.0); Fractional Inspired Oxygen 45 %; HCO3 ABG 28.1 mEq/l (22.0-26.0); Methemoglobin ABG 0.2 %THb (0-1.5); Modified Allen's Test Pass; Oxygen Content ABG 20.1 %vol (16.0-22.0); Oxygen Saturation ABG 98.4 % (95.0-100.0); PCO2 ABG 44.3 mmHg (35.0-45.0); PO2 ABG 119.8 mmHg (80.0-100.0); PO2 FiO2 Ratio Arterial Blood 2.66 %; Reduced Hemoglobin 1.4 %THb (0-5.0); Site Drawn LEFT RADIAL
[2025-04-22 17:03] LABS: Arterial Blood Gas Tidal Volume 320 ml; Arterial Blood Gas Ventilator rate 20 /MIN
[2025-04-22] MEDS: NOREPINEPHRINE 8 MG/D5W 250 ML 8 MG/250 ML BAG 9.38 MG IV CONT (17:19)
[2025-04-22] MEDS: PIPERACILLIN/TAZOBACTAM SOD 2.25 GM in SODIUM CHLORIDE 0.9% IV 50 ML 100 ML IVPB ×2 (17:35→22:48)
[2025-04-22] MEDS: VANCOMYCIN 1,250 MG/NS 250 ML 1,250 MG/250 ML BAG 166.67 MG IVPB (17:53)
[2025-04-22] MEDS: VANCOMYCIN HCL 1,000 MG in SODIUM CHLORIDE 0.9% IV 250 ML 250 MG IVPB (21:55)
[2025-04-22] MEDS: MINERAL OIL/WHITE PETROLATUM OINTMENT 1 APPLIC EACH EYE (22:01)
[2025-04-22] MEDS: CENTRAL LINE FLUSH 10 ML IV PUSH (22:48)
[2025-04-23] VITALS (66 sets, daily range): BP systolic 62–167; BP diastolic 25–51; PULSE 70–72; RESP 14–23; TEMP 37–37.6; O2SAT 93–100; BMI 38.5
[2025-04-23] MEDS: IPRATROPIUM 0.5 MG/ALBUTEROL SULFATE 2.5 MG (BASE) AMPUL.NEB 3 ML INHALATION ×4 (02:21→20:08)
[2025-04-23 05:23] LABS: Alveolar/Arterial O2 Gradient 97.0 mmHg; Carboxyhemoglobin 1.6 % THb (0-2.0); Fractional Inspired Oxygen 30 %; HCO3 ABG 27.2 mEq/l (22.0-26.0); Methemoglobin ABG 0.3 %THb (0-1.5); Oxygen Content ABG 17.5 %vol (16.0-22.0); Oxygen Saturation ABG 95.5 % (95.0-100.0); PCO2 ABG 38.0 mmHg (35.0-45.0); PO2 ABG 72.3 mmHg (80.0-100.0); PO2 FiO2 Ratio Arterial Blood 2.41 %; Reduced Hemoglobin 4.8 %THb (0-5.0)
[2025-04-23 05:29] LABS: Arterial Blood Gas Ventilator rate 20 /MIN; Modified Allen's Test Pass; Site Drawn RIGHT RADIAL
[2025-04-23 05:30] LABS: Arterial Blood Gas Tidal Volume 320 ml
[2025-04-23] MEDS: PIPERACILLIN/TAZOBACTAM SOD 2.25 GM in SODIUM CHLORIDE 0.9% IV 50 ML 100 ML IVPB ×4 (05:32→22:42)
[2025-04-23] MEDS: CENTRAL LINE FLUSH 10 ML IV PUSH ×3 (05:32→22:42)
[2025-04-23 05:55] LABS: Hematocrit 38.3 % (37.0-47.0); Hemoglobin 12.3 g/dL (12.0-15.0); Immature Granulocyte Percent A 0.4 % (0-0.5); Lymphocytes Absolute Auto 0.79 K/mm3 (0.9-3.2); Mean Corpuscular HGB Conc 32.1 g/dl (32-36); Mean Corpuscular Hemoglobin 31.1 pg (26-34); Mean Corpuscular Volume 96.7 fl (80-100); Nucleated Red Blood Cells Absolute Auto 0.000 K/mm3 (0.0-0.012); Nucleated Red Blood Cells Perc 0.0 % (0.0-0.2); Platelet Count Result 148 k/mm3 (150-375); Red Blood Count 3.96 M/mm3 (4.2-5.4); White Blood Count 5.6 K/mm3 (4.5-10.0)
[2025-04-23 06:09] LABS: INR 1.7; Prothrombin Time 20.2 Seconds (11.1-14.7)
[2025-04-23 06:10] LABS: Partial Thromboplastin Time 38.0 Seconds (22.3-36.8)
[2025-04-23 06:17] LABS: Alanine Aminotransferase 8 U/L (6-35); Albumin Level 3.2 g/dL (3.5-5.1); Alkaline Phosphatase 77 U/L (38-126); Anion Gap 4 mmol/L (4-12); Aspartate Amino Transferase 27 U/L (14-36); Bilirubin,Total 0.9 mg/dL (0.2-1.3); Blood Urea Nitrogen 18 mg/dL (7-17); Calcium 8.7 mg/dL (8.4-10.2); Carbon Dioxide 31 mmol/L (22-30); Chloride 103 mmol/L (98-107); Estimated Glomerular Filt Rate 55; Glucose 119 mg/dL (65-110); Magnesium 1.1 mg/dL (1.6-2.3); Potassium 3.4 mmol/L (3.4-5.0); Sodium 138 mmol/L (137-145); Total Protein 5.9 g/dL (6.3-8.2)
[2025-04-23 06:52] LABS: Thyroid Stimulating Hormone 1.810 uIU/mL (0.465-4.680)
[2025-04-23] MEDS: VENLAFAXINE HCL 75 MG TABLET 150 MG PO (08:35)
[2025-04-23] MEDS: MINERAL OIL/WHITE PETROLATUM OINTMENT 1 APPLIC EACH EYE ×2 (08:36→20:27)
[2025-04-23] MEDS: MAGNESIUM SULFATE 3GM/D5W100ML 3 GM/100 ML BAG IVPB (08:36)
[2025-04-23] MEDS: ESCITALOPRAM OXALATE 2.5 MG TABLET PO (08:36)
[2025-04-23] MEDS: DOCUSATE SODIUM 100 MG CAPSULE PO (08:36)
[2025-04-23] MEDS: PANTOPRAZOLE SODIUM IV 40 MG VIAL IV PUSH (08:36)
[2025-04-23] MEDS: KCL 40 MEQ/WATER 100 ML 100 ML 25 ML IVPB (08:56)
[2025-04-23] MEDS: DEXTROSE 50% 25 GM/50 ML SYRINGE IV PUSH ×2 (09:23→09:47)
[2025-04-23 09:47] LABS: Troponin I 0.171 ng/mL (0.000-0.034)
[2025-04-23] MEDS: ACETAMINOPHEN 325 MG TABLET 650 MG PO ×2 (13:17→18:12)
--- NOTE | 2025-04-23 15:57 | P.PNINT_ITS ---
Assessment and Plan Assessment and Plan (1) Acute hypoxic respiratory failure: Code(s): J96.01 - Acute respiratory failure with hypoxia Status: Acute Assessment and Plan: 04/22/2025, I was called to the rapid response as patient was getting her breathing treatment, went unresponsive and hypoxic upon arrival to the room patient had a pulse, oxygen was being bagged, O2 sats were 96-98%, blood pressures were stable. Patient was unresponsive, skin was mottled from the abdomen to her lower extremities. I decided to intubate her on the medical floor. -04/22: Patient was intubated successfully -currently on CMV mode of ventilation, peep of 8, 30% FiO2 -continue bronchodilators -sedated with fentanyl and Versed infusion, maintain RASS of 0 to -2 -daily SBT and SAT chest x-ray this morning showed moderate pulmonary venous congestion, pneumonia continue antibiotics as below 04/22: repeat CT brain: no acute intracranial abnormality 04/22: CT chest abdomen and pelvis IMPRESSION: 1. CHF and superimposed bronchopneumonia. There is underlying chronic lung disease. Follow-up is recommended to assess. 2. No acute intra-abdominal process. 3. Pancreatic lesion suspected. Contrast-enhanced MRI is recommended. (2) Cellulitis: Code(s): L03.90 - Cellulitis, unspecified Status: Acute Assessment and Plan: Right lower extremity cellulitis with ruptured blister and purulent drainage 04/17: Blood cultures negative x2 04/20: Right lower extremity wound culture shows g negative coccobacilli Patient will ceftriaxone, and vancomycin (04/18). DC ceftriaxone -will continue vancomycin (04/18), Added Zosyn (04/22) - 04/23: Infectious disease consulted, discussed with ID will continue vancomycin and Zosyn -04/23: 04/22: CT right lower extremity: Severe cellulitis. Absence of contrast limits evaluation for abscess however there is no gross loculated fluid collection. There is no air identified suggest necrotizing fasciitis. If there remains clinical concern contrast-enhanced MRI is recommended (3) Shock: Code(s): R57.9 - Shock, unspecified Status: Acute Assessment and Plan: 04/23: patient was hypotensive on the evening of 04/22, started on Levophed, which was later stopped. 04/23: Patient was hypotensive again, today and Levophed was started to maintain SBP > 100 mmHg or MAP > 65 mmHg - 04/20/2025 blood cultures: Negative x2 - 04/20/2025 right lower extremity wound culture growing Gram-negative bacilli - continue antibiotics per Infectious Disease - (4) Fall: Code(s): W19.XXXA - Unspecified fall, initial encounter Status: Acute Assessment and Plan: Patient presented on 04/17/2025 after having a fall, she hit her face and head but did not lose any consciousness. She is on Eliquis and Plavix at home -04/17: CT brain on admission did not show any acute intracranial abnormality, remote right cerebellar lacunar infarct -04/17: CT spine: Is this showed severe cervical spondylosis with no acute osseous abnormality, mild pulmonary edema at the apices of the lung (5) Atrial fibrillation: Qualifiers: Atrial fibrillation type: unspecified chronic Qualified Code(s): I48.20 - Chronic atrial fibrillation, unspecified Code(s): I48.91 - Unspecified atrial fibrillation Status: Chronic Assessment and Plan: Patient has a history of atrial fibrillation, has a leadless pacemaker as seen on the chest x-ray -patient on apixaban and Plavix at home which was restarted at the hospital on 04/18/2025 -04/22: CT brain with no acute intracranial abnormality - will restart apixaban, if hemoglobin remains stable will restart clopidogrel in 1-2 days (6) Acute exacerbation of CHF (congestive heart failure): Code(s): I50.9 - Heart failure, unspecified Status: Acute Assessment and Plan: Patient has a history of congestive heart failure, on Lasix, spironolactone, Entresto, will continue to hold for now given patient does get intubated, with adequate blood pressures -will continue to hold all GDMT meds for now, as patient is on Levophed (7) HLD (hyperlipidemia): Code(s): E78.5 - Hyperlipidemia, unspecified Status: Acute Assessment and Plan: Continue atorvastatin (8) Hypertension: Qualifiers: Hypertension type: primary hypertension Qualified Code(s): I10 - Essential (primary) hypertension Code(s): I10 - Essential (primary) hypertension Status: Chronic Assessment and Plan: Hold all antihypertensives as patient is intubated on positive pressure ventilation and sedation, hypotensive on Levophed (9) T2DM (type 2 diabetes mellitus): Qualifiers: Diabetes mellitus detention insulin use: with detention use Diabetes mellitus complication status: without complication Qualified Code(s): E11.9 - Type 2 diabetes mellitus without complications; Z79.4 - alf (current) use of insulin Code(s): E11.9 - Type 2 diabetes mellitus without complications Status: Chronic Assessment and Plan: Continue Accu-Cheks and sliding scale insulin, hold Lantus for now. If patient remains hyperglycemic will add long-acting insulin Plan DVT prophylaxis: Patient on Eliquis and Plavix, will continue to hold for now Stress ulcer prophylaxis: Protonix IV Nutrition: start tube feeds today Code Status: DNR ( discussed with patient's son, Steven, during rounds and discussed with him regarding code status, he later on in the day, after discussing with his family, asked me to make the patient a DNR) Critical Care Time Spent: 34 minutes Due to a high probability of clinically significant, life threatening deterioration, the patient required my highest level of preparedness to intervene emergently and I personally spent this critical care time directly and personally managing the patient. This critical care time included obtaining a history; examining the patient; pulse oximetry; ordering and review of studies; arranging urgent treatment with development of a management plan; evaluation of patient's response to treatment; frequent reassessment; and discussions with other providers. It was exclusive of separately billable procedures and treating other patients and teaching time. Please see Assessment and Plan section and the rest of the note for further information on patient assessment and treatment This dictation may have been done utilizing a voice recognition system. Attempts have been made to correct errors. However, there may be uncorrected grammatical, spelling, and recognitions errors present. Subjective Date/time seen: 04/23/25 15:57 Interval history: Reason for consult: Acute respiratory failure, encephalopathy, unresponsiveness, requiring intubation and mechanical ventilation 04/23/2025: Patient seen and examined the ICU, remains intubated on CMV mode of ventilation, peep of 8, FiO2 30%. Sedated with fentanyl and Versed infusion, patient does not open her eyes or follow simple commands. Urine output is low,. patient did drop her blood pressures overnight, requiring Levophed briefly, was turned off. Levophed was restarted later this afternoon as patient was hypotensive. Review of Systems Review of Systems: ROS unobtainable: Yes unobtainable due to endotracheal tube, unobtainable due to medical condition and unobtainable due to mental status Exam Narrative: General: Intubated, sedated no acute distress HEENT:? Pupils equal and reactive, sclera is clear Neck:? Supple Respiratory:? Coarse breath sounds bilaterally, no wheezing, adequate air entry Cardiac:? Paced rhythm, rate controlled Abdomen:? Soft, nontender, nondistended, hypoactive bowel sounds, obese Extremities:? Right lower leg erythema, pitting edema, tenderness, purulent drainage from rupture of blister. No crepitus Neuro:? Intubated, sedated, does not open her eyes or follow simple commands Skin:? Multiple bruising areas on the upper and lower extremities, yeast infection in the intertriginous area Psych:? Unable to assess at this time Objective Data Vital Signs Vital Signs: Vital Signs - 24 hr 04/22/25 16:00 04/22/25 16:00 04/22/25 16:00 Temperature 99 F Pulse Rate 70 70 70 Respiratory Rate 18 18 18 Blood Pressure 143/83 H Pulse Oximetry 98 Oxygen Delivery Fraction of Inspired Oxygen 04/22/25 16:00 04/22/25 16:00 04/22/25 16:00 Temperature Pulse Rate 70 Respiratory Rate Blood Pressure Pulse Oximetry 98 Oxygen Delivery Mechanical Ventilation Fraction of Inspired Oxygen 45 45 04/22/25 16:00 04/22/25 16:01 04/22/25 16:06 Temperature 99.0 F 99.0 F 97.6 F Pulse Rate 70 70 70 Respiratory Rate 18 18 20 Blood Pressure 143/83 H 143/83 H Pulse Oximetry 98 94 98 Oxygen Delivery Fraction of Inspired Oxygen 04/22/25 16:15 04/22/25 16:18 04/22/25 16:30 Temperature 98.5 F 97.9 F 98.7 F Pulse Rate 70 69 71 Respiratory Rate 15 20 21 H Blood Pressure 96/74 L Pulse Oximetry 100 97 99 Oxygen Delivery Fraction of Inspired Oxygen 04/22/25 16:45 04/22/25 16:48 04/22/25 17:00 Temperature 98.4 F 98.5 F 98.7 F Pulse Rate 71 70 70 Respiratory Rate 20 21 H 20 Blood Pressure 78/68 L 79/26 L Pulse Oximetry 97 98 98 Oxygen Delivery Fraction of Inspired Oxygen 12/07/25 17:00 04/22/25 17:02 04/22/25 17:04 Temperature 98.7 F 98.7 F 98.7 F Pulse Rate 70 70 70 Respiratory Rate 20 20 20 Blood Pressure 79/26 L 81/23 L Pulse Oximetry 98 98 98 Oxygen Delivery Fraction of Inspired Oxygen 04/22/25 17:05 04/22/25 17:06 04/22/25 17:15 Temperature 98.7 F 98.6 F Pulse Rate 70 70 70 Respiratory Rate 20 20 Blood Pressure 76/31 L Pulse Oximetry 98 98 97 Oxygen Delivery Mechanical Ventilation Fraction of Inspired Oxygen 45 04/22/25 17:16 04/22/25 17:19 04/22/25 17:30 Temperature 98.6 F 98.6 F Pulse Rate 70 70 70 Respiratory Rate 20 20 Blood Pressure 73/31 L 73/31 L Pulse Oximetry 98 99 Oxygen Delivery Fraction of Inspired Oxygen 04/22/25 17:31 04/22/25 17:45 04/22/25 17:46 Temperature 98.6 F 98.5 F 98.5 F Pulse Rate 70 70 70 Respiratory Rate 20 20 20 Blood Pressure 117/43 L 161/47 H Pulse Oximetry 99 98 98 Oxygen Delivery Fraction of Inspired Oxygen 04/22/25 18:00 04/22/25 18:00 04/22/25 18:00 Temperature 98.5 F Pulse Rate 70 70 70 Respiratory Rate 20 20 Blood Pressure 120/37 L 120/37 L Pulse Oximetry 98 Oxygen Delivery Fraction of Inspired Oxygen 04/22/25 18:00 04/22/25 18:00 04/22/25 18:00 Temperature 98.5 F Pulse Rate 70 70 70 Respiratory Rate 20 20 Blood Pressure Pulse Oximetry 98 Oxygen Delivery Fraction of Inspired Oxygen 04/22/25 18:01 04/22/25 18:16 04/22/25 18:17 Temperature 98.5 F 98.6 F 98.6 F Pulse Rate 70 70 70 Respiratory Rate 20 20 20 Blood Pressure 120/37 L 127/43 L Pulse Oximetry 96 96 96 Oxygen Delivery Fraction of Inspired Oxygen 04/22/25 18:30 04/22/25 18:31 04/22/25 18:45 Temperature 98.6 F 98.6 F 98.6 F Pulse Rate 70 70 70 Respiratory Rate 20 20 20 Blood Pressure 131/42 L Pulse Oximetry 98 96 95 Oxygen Delivery Fraction of Inspired Oxygen 04/22/25 18:46 04/22/25 19:00 04/22/25 19:01 Temperature 98.6 F 98.6 F 98.6 F Pulse Rate 70 70 70 Respiratory Rate 20 20 20 Blood Pressure 124/41 L 133/44 L Pulse Oximetry Oxygen Delivery Fraction of Inspired Oxygen 04/22/25 19:15 04/22/25 19:16 04/22/25 19:28 Temperature 98.5 F 98.5 F Pulse Rate 70 70 72 Respiratory Rate 20 20 22 H Blood Pressure 136/45 L Pulse Oximetry Oxygen Delivery Fraction of Inspired Oxygen 04/22/25 19:29 04/22/25 19:30 04/22/25 19:31 Temperature 98.5 F 98.5 F Pulse Rate 70 70 70 Respiratory Rate 22 H 20 18 Blood Pressure 112/71 Pulse Oximetry 100 100 Oxygen Delivery Fraction of Inspired Oxygen 04/22/25 20:00 04/22/25 20:00 04/22/25 20:00 Temperature 98.0 F Pulse Rate 70 70 Respiratory Rate 22 H Blood Pressure 148/49 H 145/45 H Pulse Oximetry 99 Oxygen Delivery Fraction of Inspired Oxygen 45 04/22/25 20:00 04/22/25 20:00 04/22/25 20:00 Temperature Pulse Rate 70 70 Respiratory Rate 20 Blood Pressure Pulse Oximetry Oxygen Delivery Mechanical Ventilation Fraction of Inspired Oxygen 40 04/22/25 20:00 04/22/25 21:00 04/22/25 21:17 Temperature Pulse Rate 70 70 70 Respiratory Rate 20 20 20 Blood Pressure 136/52 L Pulse Oximetry 100 Oxygen Delivery Fraction of Inspired Oxygen 04/22/25 21:18 04/22/25 21:27 04/22/25 21:54 Temperature Pulse Rate 71 70 70 Respiratory Rate 20 Blood Pressure 141/44 H Pulse Oximetry 100 Oxygen Delivery Mechanical Ventilation Fraction of Inspired Oxygen 45 04/22/25 22:00 04/22/25 22:00 04/22/25 22:00 Temperature Pulse Rate 70 70 70 Respiratory Rate 20 20 Blood Pressure 145/46 H Pulse Oximetry Oxygen Delivery Fraction of Inspired Oxygen 04/22/25 22:00 04/22/25 22:00 04/22/25 22:40 Temperature 99.0 F Pulse Rate 70 70 70 Respiratory Rate 20 20 Blood Pressure 139/46 L Pulse Oximetry 100 Oxygen Delivery Fraction of Inspired Oxygen 04/22/25 22:44 04/22/25 22:53 04/22/25 22:58 Temperature Pulse Rate 70 70 70 Respiratory Rate 20 Blood Pressure 144/44 H 152/46 H Pulse Oximetry Oxygen Delivery Fraction of Inspired Oxygen 04/22/25 23:00 04/22/25 23:11 04/23/25 00:00 Temperature 99.1 F 98.6 F Pulse Rate 89 70 70 Respiratory Rate 22 H 20 Blood Pressure 132/75 121/37 L Pulse Oximetry 98 100 95 Oxygen Delivery Mechanical Ventilation Fraction of Inspired Oxygen 40 04/23/25 00:00 04/23/25 00:00 04/23/25 00:00 Temperature Pulse Rate 70 70 70 Respiratory Rate 20 20 Blood Pressure 116/40 L Pulse Oximetry Oxygen Delivery Fraction of Inspired Oxygen 04/23/25 00:00 04/23/25 00:00 04/23/25 00:00 Temperature Pulse Rate 70 Respiratory Rate Blood Pressure Pulse Oximetry Oxygen Delivery Mechanical Ventilation Fraction of Inspired Oxygen 35 35 04/23/25 01:00 04/23/25 01:32 04/23/25 02:00 Temperature 99.1 F Pulse Rate 70 70 70 Respiratory Rate 20 20 Blood Pressure 111/31 L 104/30 L Pulse Oximetry 95 Oxygen Delivery Fraction of Inspired Oxygen 04/23/25 02:00 04/23/25 02:00 04/23/25 02:00 Temperature Pulse Rate 70 70 70 Respiratory Rate 20 Blood Pressure 146/39 H Pulse Oximetry Oxygen Delivery Fraction of Inspired Oxygen 04/23/25 02:00 04/23/25 02:21 04/23/25 02:21 Temperature 99.2 F Pulse Rate 70 70 70 Respiratory Rate 20 20 Blood Pressure 167/42 H Pulse Oximetry 98 98 Oxygen Delivery Mechanical Ventilation Fraction of Inspired Oxygen 35 04/23/25 02:28 04/23/25 03:00 04/23/25 04:00 Temperature 99.3 F 99.5 F Pulse Rate 70 70 70 Respiratory Rate 20 20 20 Blood Pressure 116/30 L 164/44 H Pulse Oximetry 99 93 Oxygen Delivery Fraction of Inspired Oxygen 04/23/25 04:00 04/23/25 04:00 04/23/25 04:00 Temperature Pulse Rate 70 70 70 Respiratory Rate 20 20 Blood Pressure 164/44 H Pulse Oximetry Oxygen Delivery Fraction of Inspired Oxygen 04/23/25 04:00 04/23/25 04:00 04/23/25 04:00 Temperature Pulse Rate 70 Respiratory Rate Blood Pressure Pulse Oximetry Oxygen Delivery Mechanical Ventilation Fraction of Inspired Oxygen 30 35 04/23/25 04:15 04/23/25 05:00 04/23/25 05:24 Temperature 99.5 F Pulse Rate 70 70 70 Respiratory Rate 20 Blood Pressure 131/39 L 127/40 L Pulse Oximetry 96 98 Oxygen Delivery Mechanical Ventilation Fraction of Inspired Oxygen 30 04/23/25 05:53 04/23/25 05:54 04/23/25 05:54 Temperature Pulse Rate 71 71 71 Respiratory Rate 20 20 Blood Pressure 140/45 L Pulse Oximetry Oxygen Delivery Fraction of Inspired Oxygen 04/23/25 06:00 04/23/25 06:00 04/23/25 07:00 Temperature 99.5 F 99.5 F Pulse Rate 70 71 70 Respiratory Rate 20 20 Blood Pressure 128/42 L 139/51 L Pulse Oximetry 96 94 Oxygen Delivery Fraction of Inspired Oxygen 04/23/25 08:00 04/23/25 08:00 04/23/25 08:00 Temperature 99.5 F Pulse Rate 70 Respiratory Rate 20 Blood Pressure 134/40 L Pulse Oximetry 97 Oxygen Delivery Mechanical Ventilation Fraction of Inspired Oxygen 35 35 04/23/25 08:00 04/23/25 08:00 04/23/25 08:00 Temperature Pulse Rate 71 70 71 Respiratory Rate 14 14 Blood Pressure Pulse Oximetry Oxygen Delivery Fraction of Inspired Oxygen 04/23/25 08:00 04/23/25 08:31 04/23/25 08:31 Temperature Pulse Rate 70 70 70 Respiratory Rate 16 Blood Pressure Pulse Oximetry 96 Oxygen Delivery Mechanical Ventilation Fraction of Inspired Oxygen 30 04/23/25 08:41 04/23/25 09:00 04/23/25 09:57 Temperature 99.6 F 99.6 F Pulse Rate 72 71 70 Respiratory Rate 16 16 18 Blood Pressure 142/48 H Pulse Oximetry 98 94 Oxygen Delivery Fraction of Inspired Oxygen 04/23/25 10:00 04/23/25 10:00 04/23/25 10:00 Temperature 99.6 F Pulse Rate 70 70 70 Respiratory Rate 18 16 Blood Pressure 152/45 H Pulse Oximetry 94 Oxygen Delivery Fraction of Inspired Oxygen 04/23/25 10:00 04/23/25 10:00 04/23/25 10:00 Temperature 99.6 F Pulse Rate 70 70 70 Respiratory Rate 16 17 Blood Pressure 152/45 H Pulse Oximetry 98 Oxygen Delivery Fraction of Inspired Oxygen 04/23/25 10:01 04/23/25 11:00 04/23/25 11:34 Temperature 99.6 F 99.5 F Pulse Rate 70 71 70 Respiratory Rate 18 16 Blood Pressure 101/40 L 62/25 L Pulse Oximetry 97 97 Oxygen Delivery Fraction of Inspired Oxygen 04/23/25 11:50 04/23/25 11:52 04/23/25 11:52 Temperature Pulse Rate 70 70 70 Respiratory Rate 16 16 Blood Pressure 111/40 L Pulse Oximetry Oxygen Delivery Fraction of Inspired Oxygen 04/23/25 12:00 04/23/25 12:00 04/23/25 12:00 Temperature 99.3 F Pulse Rate 70 Respiratory Rate 16 Blood Pressure 157/46 H Pulse Oximetry 99 Oxygen Delivery Mechanical Ventilation Fraction of Inspired Oxygen 30 35 04/23/25 12:05 04/23/25 12:25 04/23/25 13:58 Temperature 99.4 F 99.3 F Pulse Rate 70 70 70 Respiratory Rate 16 16 Blood Pressure Pulse Oximetry 98 99 97 Oxygen Delivery Mechanical Ventilation Fraction of Inspired Oxygen 30 04/23/25 14:00 04/23/25 14:00 04/23/25 14:01 Temperature 99.3 F 99.3 F Pulse Rate 71 70 70 Respiratory Rate 16 16 Blood Pressure 108/34 L Pulse Oximetry 97 97 Oxygen Delivery Fraction of Inspired Oxygen 04/23/25 14:15 04/23/25 14:16 04/23/25 15:00 Temperature 99.3 F 99.3 F 99.2 F Pulse Rate 71 71 70 Respiratory Rate 16 16 16 Blood Pressure 99/35 L 107/40 L Pulse Oximetry 96 96 97 Oxygen Delivery Fraction of Inspired Oxygen 04/23/25 15:07 04/23/25 15:07 04/23/25 15:14 Temperature Pulse Rate 71 71 70 Respiratory Rate 16 16 Blood Pressure Pulse Oximetry 97 Oxygen Delivery Mechanical Ventilation Fraction of Inspired Oxygen 30 Intake/Output Intake/Output: Intake & Output 04/20/25 04/21/25 04/22/25 04/23/25 23:59 23:59 23:59 23:59 Intake Total 0205 215 2572.6 246.1 Output Total 975 1450 880 390 Balance 65 -830 193.6 -143.9 Meds/Results Medications: Active Medications Generic Name Dose Route Start Last Admin Trade Name Freq PRN Reason Stop Dose Admin Acetaminophen 650 mg 04/17/25 21:00 04/23/25 13:17 Acetaminophen 325 Mg Tablet PO 650 mg Q6HR JAMIE Administration Albuterol/Ipratropium 3 ml 04/18/25 02:00 04/23/25 15:07 Ipratropium 0.5 Mg/Albuterol Sulfate 2.5 Mg (Base) Ampul.Neb 3 Ml INHALATION 3 ml Q6HRT JAIME Administration Apixaban 5 mg 04/23/25 17:00 Apixaban 5 Mg Tablet PO BID JAIME Atorvastatin Calcium 80 mg 04/18/25 21:00 04/22/25 21:58 Atorvastatin 40 Mg Tablet PO Not Given HS JAIME Buspirone HCl 5 mg 04/17/25 21:24 04/21/25 20:45 Buspirone Hcl 5 Mg Tablet PO 5 mg BID PRN Administration Anxiety Clopidogrel Bisulfate 75 mg 04/18/25 09:00 04/22/25 10:18 Clopidogrel Bisulfate 75 Mg Tablet PO 75 mg On Hold: 04/22/25 16:05 DAILY JAIME Administration Dextrose 12.5 gm 04/17/25 21:26 04/23/25 09:47 Dextrose 50% 25 Gm/50 Ml Syringe IV PUSH 12.5 gm PRN PRN Administration Hypoglycemia Protocol Docusate Sodium 100 mg 04/18/25 09:00 04/23/25 08:36 Docusate Sodium 100 Mg Capsule PO 100 mg Q12HR JAIME Administration Escitalopram Oxalate 2.5 mg 04/22/25 13:55 04/23/25 08:36 Escitalopram Oxalate 2.5 Mg Tablet PO 2.5 mg DAILY JAIME Administration Furosemide 20 mg 04/18/25 09:00 04/22/25 10:17 Furosemide 20 Mg Tablet PO 20 mg On Hold: 04/22/25 16:06 BID JAIME Administration Glucagon 1 mg 04/17/25 21:26 Glucagon For Inj 1 Mg Vial IM PRN PRN Hypoglycemia Protocol Glucose 15 gm 04/17/25 21:26 Glucose Oral Gel 15 Gm Of Glucse In 37.5 Gm Tube PO PRN PRN Hypoglycemia Protocol Dextrose 1,000 mls @ 100 mls/hr 04/17/25 21:26 Dextrose 5% 1,000 Ml IVPB PRN PRN Hypoglycemia Protocol Fentanyl Citrate 2,500 mcg in 250 mls @ 7.5 mls/hr 04/22/25 15:15 04/23/25 11:50 Fentanyl 2,500 Mcg/Ns 250 Ml IV CONT 75 mcg/hr .[id number] JAIME 7.5 mls/hr Protocol Titration 75 MCG/HR Midazolam HCl 100 mg in 100 mls @ 3 mls/hr 04/22/25 15:15 04/23/25 11:52 Versed 100 Mg/Ns 100 Ml IV CONT 3 mg/hr .[id number] JAIME 3 mls/hr Protocol Titration 3 MG/HR Piperacillin Sod/Tazobactam 50 mls @ 100 mls/hr 04/22/25 17:00 04/23/25 13:17 Sod 2.25 gm/ Sodium Chloride IVPB 100 mls/hr Q6H JAIME Administration Norepinephrine Bitartrate 8 mg in 250 mls @ 0 mls/hr 04/22/25 17:15 04/23/25 11:52 Levophed 8 Mg/D5w 250 Ml IV CONT 5 mcg/min .Q0M JAIME 9.38 mls/hr Protocol Titration Vancomycin HCl 1,500 mg in 500 mls @ 250 mls/hr 04/24/25 06:00 Vancomycin 1,500 Mg/Ns 500 Ml IVPB Q36H JAIME Insulin Aspart 2 - 5 units 04/18/25 08:00 04/23/25 11:44 Insulin Aspart (*Bkc) 100 Units/Ml SUB-Q Not Given [facility] Protocol Insulin Glargine 10 units 04/18/25 21:00 04/21/25 20:46 Insulin Glargine (*Bkc) 100 Units/Ml SUB-Q 10 units On Hold: 04/22/25 16:06 HS JAIME Administration Metoprolol Succinate 100 mg 04/18/25 09:00 04/22/25 10:16 Metoprolol Succinate Ext Rel 100 Mg Tabcr PO 100 mg On Hold: 04/22/25 16:06 Q12HR JAIME Administration Multi-Ingred Cream/Lotion/Oil/Oint 1 applic 04/22/25 21:00 04/23/25 08:36 Mineral Oil/White Petrolatum Ointment EACH EYE 1 applic Q12HR JAIME Administration Pantoprazole Sodium 40 mg 04/23/25 09:00 04/23/25 08:36 Pantoprazole Sodium Iv 40 Mg Vial IV PUSH 40 mg QAM JAIME Administration Sacubitril/Valsartan 1 tab 04/18/25 09:00 04/22/25 10:18 Sacubitril/Valsartan 24-26 Mg Tablet PO 1 tab On Hold: 04/22/25 16:15 Q12HR JAIME Administration Sodium Chloride 10 ml 04/22/25 22:00 04/23/25 13:17 Central Line Flush IV PUSH 10 ml Q8HR JAIME Administration Sodium Chloride 20 ml 04/22/25 16:39 Central Line Flush IV PUSH PRN PRN after blood draws Spironolactone 12.5 mg 04/18/25 09:00 04/22/25 10:16 Spironolactone 12.5 Mg Tablet PO 12.5 mg On Hold: 04/22/25 16:15 QAM JAIME Administration Venlafaxine HCl 150 mg 04/18/25 09:00 04/23/25 08:35 Venlafaxine Hcl 75 Mg Tablet PO 150 mg DAILY JAIME Administration Radiology Results: ITS Impressions Cervical Spine CT 04/17/25 16:46 IMPRESSION: 1. Severe cervical spondylosis with no acute osseous abnormality. 2. Mild pulmonary edema at the apices of lungs. Abdomen X-Ray 04/22/25 16:03 Impression: 1. No acute abnormality. Head CT 04/22/25 16:27 Impression: 1.No acute intracranial abnormality. Chest/Abdomen/Pelvis CT 04/22/25 16:29 IMPRESSION: 1. CHF and superimposed bronchopneumonia. There is underlying chronic lung disease. Follow-up is recommended to assess. 2. No acute intra-abdominal process. 3. Pancreatic lesion suspected. Contrast-enhanced MRI is recommended. Lower Extremity CT 04/22/25 17:02 IMPRESSION: Severe cellulitis. Absence of contrast limits evaluation for abscess however there is no gross loculated fluid collection. There is no air identified suggest necrotizing fasciitis. If there remains clinical concern contrast- enhanced MRI is recommended Chest X-Ray 04/23/25 08:25 Impression: CHF. Superimposed probable pneumonia. The findings appear progressed compared to the previous exam. Labs Labs: Laboratory Results - last 24 hr 04/22/25 04/22/25 04/22/25 15:57 16:50 17:42 WBC 5.9 RBC 4.34 Hgb 13.6 Hct 42.1 MCV 97.0 MCH 31.3 MCHC 32.3 RDW 15.0 H Plt Count 156 MPV 9.5 Immature Gran % (Auto) 0.3 Neut % (Auto) 86.7 H Lymph % (Auto) 4.9 L [place] % (Auto) 6.6 Eos % (Auto) 1.3 Baso % (Auto) 0.2 Lymph # (Auto) 0.29 L [place] # (Auto) 0.4 Eos # (Auto) 0.1 Baso # (Auto) 0.0 Abs Immat Gran (auto) 0.02 Absolute Neuts (auto) 5.1 Absolute Nucleated RBC 0.000 Nucleated RBC % 0.0 PT 21.2 H INR 1.9 APTT 34.6 Puncture Site Left radial ABG pH 7.420 ABG pCO2 44.3 ABG pO2 119.8 H ABG PO2/FiO2 Ratio 2.66 ABG HCO3 28.1 H ABG O2 Saturation 98.4 ABG O2 Content 20.1 ABG Base Excess 3.1 A-a Gradient 150.7 Oxyhemoglobin 97.0 Carboxyhemoglobin 1.4 Methemoglobin 0.2 Reduced Hemoglobin 1.4 Total Hemoglobin 14.6 O2 Delivery Device Ventilator O2 Liters/Min Not Reportable Minute Volume Not Reportable Vent Rate 20 Vent Mode Cmv FiO2 45 Tidal Volume 320 PEEP 8 Peak Inspir Pressure Not Reportable Pressure Support Not Reportable Sodium 139 Potassium 3.8 Chloride 101 Carbon Dioxide 31 H Anion Gap 7 BUN 19 H Creatinine 1.02 H Estim Creat Clear Calc Not Reportable Estimated GFR 52 L Glucose 241 H POC Capillary Glucose 210 H Lactic Acid 1.9 Calcium 9.0 Phosphorus 4.2 Magnesium 1.2 L Total Bilirubin 0.9 AST 36 ALT 11 Alkaline Phosphatase 80 Ammonia < 9 L Troponin I 0.191 H* Total Protein 6.3 Albumin 3.3 L Lipase 61 TSH 04/22/25 04/23/25 04/23/25 22:38 05:07 05:30 WBC 5.6 RBC 3.96 L Hgb 12.3 Hct 38.3 MCV 96.7 MCH 31.1 MCHC 32.1 RDW 15.0 H Plt Count 148 L MPV 9.9 Immature Gran % (Auto) 0.4 Neut % (Auto) 71.9 Lymph % (Auto) 14.2 L [place] % (Auto) 8.8 H Eos % (Auto) 4.0 Baso % (Auto) 0.7 Lymph # (Auto) 0.79 L [place] # (Auto) 0.5 Eos # (Auto) 0.2 Baso # (Auto) 0.0 Abs Immat Gran (auto) 0.02 Absolute Neuts (auto) 4.0 Absolute Nucleated RBC 0.000 Nucleated RBC % 0.0 PT 20.2 H INR 1.7 APTT 38.0 H Puncture Site Right radial ABG pH 7.472 H ABG pCO2 38.0 ABG pO2 72.3 L ABG PO2/FiO2 Ratio 2.41 ABG HCO3 27.2 H ABG O2 Saturation 95.5 ABG O2 Content 17.5 ABG Base Excess 3.5 A-a Gradient 97.0 Oxyhemoglobin 93.3 Carboxyhemoglobin 1.6 Methemoglobin 0.3 Reduced Hemoglobin 4.8 Total Hemoglobin 13.3 O2 Delivery Device Ventilator O2 Liters/Min Not Reportable Minute Volume Not Reportable Vent Rate 20 Vent Mode Cmv FiO2 30 Tidal Volume 320 PEEP 8 Peak Inspir Pressure Not Reportable Pressure Support Not Reportable Sodium 138 Potassium 3.4 Chloride 103 Carbon Dioxide 31 H Anion Gap 4 BUN 18 H Creatinine 0.97 Estim Creat Clear Calc Not Reportable Estimated GFR 55 L Glucose 119 H POC Capillary Glucose 98 Lactic Acid 1.3 Calcium 8.7 Phosphorus 3.1 Magnesium 1.1 L Total Bilirubin 0.9 AST 27 ALT 8 Alkaline Phosphatase 77 Ammonia Troponin I Total Protein 5.9 L Albumin 3.2 L Lipase TSH 1.810 04/23/25 04/23/25 04/23/25 05:50 09:06 09:17 WBC RBC Hgb Hct MCV MCH MCHC RDW Plt Count MPV Immature Gran % (Auto) Neut % (Auto) Lymph % (Auto) [place] % (Auto) Eos % (Auto) Baso % (Auto) Lymph # (Auto) [place] # (Auto) Eos # (Auto) Baso # (Auto) Abs Immat Gran (auto) Absolute Neuts (auto) Absolute Nucleated RBC Nucleated RBC % PT INR APTT Puncture Site ABG pH ABG pCO2 ABG pO2 ABG PO2/FiO2 Ratio ABG HCO3 ABG O2 Saturation ABG O2 Content ABG Base Excess A-a Gradient Oxyhemoglobin Carboxyhemoglobin Methemoglobin Reduced Hemoglobin Total Hemoglobin O2 Delivery Device O2 Liters/Min Minute Volume Vent Rate Vent Mode FiO2 Tidal Volume PEEP Peak Inspir Pressure Pressure Support Sodium Potassium Chloride Carbon Dioxide Anion Gap BUN Creatinine Estim Creat Clear Calc Estimated GFR Glucose POC Capillary Glucose 121 H 49 L* Lactic Acid Calcium Phosphorus Magnesium Total Bilirubin AST ALT Alkaline Phosphatase Ammonia Troponin I 0.171 H* Total Protein Albumin Lipase [facility] 04/23/25 04/23/25 04/23/25 09:19 09:42 09:44 WBC RBC Hgb Hct MCV MCH MCHC RDW Plt Count MPV Immature Gran % (Auto) Neut % (Auto) Lymph % (Auto) [place] % (Auto) Eos % (Auto) Baso % (Auto) Lymph # (Auto) [place] # (Auto) Eos # (Auto) Baso # (Auto) Abs Immat Gran (auto) Absolute Neuts (auto) Absolute Nucleated RBC Nucleated RBC % PT INR APTT Puncture Site ABG pH ABG pCO2 ABG pO2 ABG PO2/FiO2 Ratio ABG HCO3 ABG O2 Saturation ABG O2 Content ABG Base Excess A-a Gradient Oxyhemoglobin Carboxyhemoglobin Methemoglobin Reduced Hemoglobin Total Hemoglobin O2 Delivery Device O2 Liters/Min Minute Volume Vent Rate Vent Mode FiO2 Tidal Volume PEEP Peak Inspir Pressure Pressure Support Sodium Potassium Chloride Carbon Dioxide Anion Gap BUN Creatinine Estim Creat Clear Calc Estimated GFR Glucose POC Capillary Glucose 54 L* 50 L* 57 L* Lactic Acid Calcium Phosphorus Magnesium Total Bilirubin AST ALT Alkaline Phosphatase Ammonia Troponin I Total Protein Albumin Lipase [facility] 04/23/25 11:44 WBC RBC Hgb Hct MCV MCH MCHC RDW Plt Count MPV Immature Gran % (Auto) Neut % (Auto) Lymph % (Auto) [place] % (Auto) Eos % (Auto) Baso % (Auto) Lymph # (Auto) [place] # (Auto) Eos # (Auto) Baso # (Auto) Abs Immat Gran (auto) Absolute Neuts (auto) Absolute Nucleated RBC Nucleated RBC % PT INR APTT Puncture Site ABG pH ABG pCO2 ABG pO2 ABG PO2/FiO2 Ratio ABG HCO3 ABG O2 Saturation ABG O2 Content ABG Base Excess A-a Gradient Oxyhemoglobin Carboxyhemoglobin Methemoglobin Reduced Hemoglobin Total Hemoglobin O2 Delivery Device O2 Liters/Min Minute Volume Vent Rate Vent Mode FiO2 Tidal Volume PEEP Peak Inspir Pressure Pressure Support Sodium Potassium Chloride Carbon Dioxide Anion Gap BUN Creatinine Estim Creat Clear Calc Estimated GFR Glucose POC Capillary Glucose 130 H Lactic Acid Calcium Phosphorus Magnesium Total Bilirubin AST ALT Alkaline Phosphatase Ammonia Troponin I Total Protein Albumin Lipase TSH Quality VTE Prophylaxis VTE prophylaxis: pharmacologic ordered
--- NOTE | 2025-04-23 17:13 | WPDIDCN ---
Assessment and Plan Assessment and plan (1) Cellulitis: Code(s): L03.90 - Cellulitis, unspecified Status: Acute (2) Pneumonia: Code(s): J18.9 - Pneumonia, unspecified organism Status: Acute Plan ASSESSMENT: 1. pneumonia 2. acute respiratory failure s/p intubation 3. shock 4. heart failure 5. RLE cellulitis; wound cx GNR 6. CAD s/p CABG 7. s/p AVR 8. AFib 9. s/p pacer 10. HTN, HL, DVT 11. DM RECOMMENDATIONS: -continue vanco and zosyn for now -f/u on blood and wound cxs -MRSA nares -sputum cx d/w pharmacy staff and health and wellness director Pt was seen via video telehealth consultation with the assistance of staff. Chart, data and patient info reviewed. Patient was located at [facility] while I was in my [place] office. Pt gave consent. HPI Data of Consult Date/Time: 04/23/25 17:13 Requesting Physician: Juan Key MD Primary Care Provider: Gerri Valencia, ADVERTISING CONSULTANT Consult Narrative Reason for consult: pneumonia, RLE cellulitis Narrative: Lizabeth Perry is a 84 year old female with pmhx/o CAD s/p CABG, Afib, s/p pacer, HTN, HL, DVT, DM, CHF, s/p AVR, presented to hospital after a fall. Work up revealed RLE cellulitis and heart failure. Hospital course c/b acute respiratory failure requiring intubation. Now in ICU. possible pneumonia. On vanco/zosyn. Wound cx from leg with GNR. Blood cx in process. [facility] Past Medical History Medical History (Updated 04/23/25 @ 17:21 by Genesis Sauceda MD) HLD (hyperlipidemia) Hypertension Peripheral vascular disease History of pacemaker Myocardial infarction Congestive heart failure Atrial fibrillation Coronary artery disease Deep vein thrombosis September 2024 Insulin dependent type 2 diabetes mellitus Surgical History Surgical History History of thrombectomy right groin DVT in September 2024 Aortic valve replaced Coronary artery disease status post coronary stent insertion 3 stents placed in 2022 Family History Family History Father Diabetes mellitus Other Heart disease Social History Social History Smoking status: Never smoker Alcohol intake: former Substance use: never Substance use type: does not use Lack of Transportation: No Lack of Food: Never True Current Housing: I Have Housing Concerned About Future Housing: No Difficulty Paying Gas/Electric Bills: No Difficulty Paying for Meds: No Currently Unemployed: No Education: High School Diploma/GED Difficulty w/ Childcare or Family Care: No Living arrangements: assisted living Additional living arrangements comments: [facility] Spiritual care concerns: No Meds Home Medications and Allergies Home Medications ?Medication ?Instructions ?Recorded ?Confirmed ?Type atorvastatin 80 mg tablet 80 mg PO HS 03/20/24 04/17/25 History clopidogrel 75 mg tablet 75 mg PO DAILY 03/20/24 04/17/25 History furosemide 20 mg tablet 20 mg PO BID PRN lower leg swelling 03/20/24 04/17/25 History metoprolol succinate 100 mg 100 mg PO BID 03/20/24 04/17/25 History tablet,extended release 24 hr multivitamin with minerals 2 tablet PO DAILY 03/20/24 04/17/25 History (Hair,Skin and Nails tablet) apixaban 5 mg tablet (Eliquis) 5 mg PO BID 12/08/24 04/17/25 History insulin degludec 200 unit/mL (3 24 unit subcut DAILY 12/08/24 04/17/25 History mL) subcutaneous pen (Tresiba FlexTouch U-200 insulin) oxybutynin ER 30 mg PO HS 12/08/24 04/17/25 History pantoprazole 40 mg tablet,delayed 40 mg PO QAM 12/08/24 04/17/25 History release sacubitril 24 mg-valsartan 26 mg 1 tablet PO BID 12/08/24 04/17/25 History tablet (Entresto) semaglutide 2 mg/dose (8 mg/3 mL) 2 mg subcut WEEKLY 12/08/24 04/17/25 History subcutaneous pen injector (Ozempic) spironolactone 25 mg tablet 12.5 mg PO QAM 12/08/24 04/17/25 History alprazolam 0.25 mg tablet 0.25 mg PO DAILY PRN anxiety 03/09/25 04/17/25 History buspirone 5 mg tablet 5 mg PO BID PRN anxiety 03/09/25 04/17/25 History cetirizine 10 mg capsule (All Day 10 mg PO HS 03/09/25 04/17/25 History Allergy (cetirizine)) clobetasol 0.05 % scalp solution 1 applic topical BID 03/09/25 04/17/25 History ketoconazole 2 % topical cream 1 applic topical DAILY 03/09/25 04/17/25 History loperamide 2 mg capsule 2 mg PO DAILY PRN loose stool 03/09/25 04/17/25 History (Anti-Diarrheal (loperamide)) hdmztasf-dtr-opndi acid 0.4 1 tablet PO DAILY 03/09/25 04/17/25 History mg-lycopene 300 mcg-lutein 250 mcg tablet (A Thru Z Select 50 Plus Formula) nystatin 100,000 unit/gram topical 1 applic topical BID 03/09/25 04/17/25 History powder roflumilast 0.3 % topical cream 1 applic topical DAILY 03/09/25 04/17/25 History (Zoryve) diphenhydramine 25 2 tablet PO HS 04/17/25 04/17/25 History mg-acetaminophen 500 mg tablet (Pain Relief PM) tramadol 50 mg tablet 50 mg PO Q12H PRN pain (scale 04/17/25 04/17/25 History score 6-10) venlafaxine 75 mg tablet 150 mg PO DAILY 04/17/25 04/17/25 History Allergies Allergy/AdvReac Type Severity Reaction Status Date / Time No Known Allergies Allergy Verified 04/17/25 20:14 Vital Signs Vital Signs - 24 hr 04/22/25 17:15 04/22/25 17:16 04/22/25 17:19 Temperature 98.6 F 98.6 F Pulse Rate 70 70 70 Respiratory Rate 20 20 Blood Pressure 73/31 L 73/31 L Pulse Oximetry 97 98 Oxygen Delivery Fraction of Inspired Oxygen 04/22/25 17:30 04/22/25 17:31 04/22/25 17:45 Temperature 98.6 F 98.6 F 98.5 F Pulse Rate 70 70 70 Respiratory Rate 20 20 20 Blood Pressure 117/43 L Pulse Oximetry 99 99 98 Oxygen Delivery Fraction of Inspired Oxygen 04/22/25 17:46 04/22/25 18:00 04/22/25 18:00 Temperature 98.5 F 98.5 F Pulse Rate 70 70 70 Respiratory Rate 20 20 Blood Pressure 161/47 H 120/37 L 120/37 L Pulse Oximetry 98 98 Oxygen Delivery Fraction of Inspired Oxygen 04/22/25 18:00 04/22/25 18:00 04/22/25 18:00 Temperature Pulse Rate 70 70 70 Respiratory Rate 20 20 Blood Pressure Pulse Oximetry Oxygen Delivery Fraction of Inspired Oxygen 04/22/25 18:00 04/22/25 18:01 04/22/25 18:16 Temperature 98.5 F 98.5 F 98.6 F Pulse Rate 70 70 70 Respiratory Rate 20 20 20 Blood Pressure 120/37 L 127/43 L Pulse Oximetry 98 96 96 Oxygen Delivery Fraction of Inspired Oxygen 04/22/25 18:17 04/22/25 18:30 04/22/25 18:31 Temperature 98.6 F 98.6 F 98.6 F Pulse Rate 70 70 70 Respiratory Rate 20 20 20 Blood Pressure 131/42 L Pulse Oximetry 96 98 96 Oxygen Delivery Fraction of Inspired Oxygen 04/22/25 18:45 04/22/25 18:46 04/22/25 19:00 Temperature 98.6 F 98.6 F 98.6 F Pulse Rate 70 70 70 Respiratory Rate 20 20 20 Blood Pressure 124/41 L Pulse Oximetry 95 Oxygen Delivery Fraction of Inspired Oxygen 04/22/25 19:01 04/22/25 19:15 04/22/25 19:16 Temperature 98.6 F 98.5 F 98.5 F Pulse Rate 70 70 70 Respiratory Rate 20 20 20 Blood Pressure 133/44 L 136/45 L Pulse Oximetry Oxygen Delivery Fraction of Inspired Oxygen 04/22/25 19:28 04/22/25 19:29 04/22/25 19:30 Temperature 98.5 F Pulse Rate 72 70 70 Respiratory Rate 22 H 22 H 20 Blood Pressure Pulse Oximetry 100 Oxygen Delivery Fraction of Inspired Oxygen 04/22/25 19:31 04/22/25 20:00 04/22/25 20:00 Temperature 98.5 F 98.0 F Pulse Rate 70 70 Respiratory Rate 18 22 H Blood Pressure 112/71 148/49 H Pulse Oximetry 100 99 Oxygen Delivery Fraction of Inspired Oxygen 45 04/22/25 20:00 04/22/25 20:00 04/22/25 20:00 Temperature Pulse Rate 70 70 Respiratory Rate Blood Pressure 145/45 H Pulse Oximetry Oxygen Delivery Mechanical Ventilation Fraction of Inspired Oxygen 40 04/22/25 20:00 04/22/25 20:00 04/22/25 21:00 Temperature Pulse Rate 70 70 70 Respiratory Rate 20 20 20 Blood Pressure 136/52 L Pulse Oximetry 100 Oxygen Delivery Fraction of Inspired Oxygen 04/22/25 21:17 04/22/25 21:18 04/22/25 21:27 Temperature Pulse Rate 70 71 70 Respiratory Rate 20 20 Blood Pressure Pulse Oximetry 100 Oxygen Delivery Mechanical Ventilation Fraction of Inspired Oxygen 45 04/22/25 21:54 04/22/25 22:00 04/22/25 22:00 Temperature Pulse Rate 70 70 70 Respiratory Rate 20 Blood Pressure 141/44 H 145/46 H Pulse Oximetry Oxygen Delivery Fraction of Inspired Oxygen 04/22/25 22:00 04/22/25 22:00 04/22/25 22:00 Temperature 99.0 F Pulse Rate 70 70 70 Respiratory Rate 20 20 Blood Pressure 139/46 L Pulse Oximetry 100 Oxygen Delivery Fraction of Inspired Oxygen 04/22/25 22:40 04/22/25 22:44 04/22/25 22:53 Temperature Pulse Rate 70 70 70 Respiratory Rate 20 Blood Pressure 144/44 H 152/46 H Pulse Oximetry Oxygen Delivery Fraction of Inspired Oxygen 04/22/25 22:58 04/22/25 23:00 04/22/25 23:11 Temperature 99.1 F Pulse Rate 70 89 70 Respiratory Rate 20 22 H Blood Pressure 132/75 Pulse Oximetry 98 100 Oxygen Delivery Mechanical Ventilation Fraction of Inspired Oxygen 40 04/23/25 00:00 04/23/25 00:00 04/23/25 00:00 Temperature 98.6 F Pulse Rate 70 70 70 Respiratory Rate 20 20 20 Blood Pressure 121/37 L Pulse Oximetry 95 Oxygen Delivery Fraction of Inspired Oxygen 04/23/25 00:00 04/23/25 00:00 04/23/25 00:00 Temperature Pulse Rate 70 70 Respiratory Rate Blood Pressure 116/40 L Pulse Oximetry Oxygen Delivery Mechanical Ventilation Fraction of Inspired Oxygen 35 04/23/25 00:00 04/23/25 01:00 04/23/25 01:32 Temperature 99.1 F Pulse Rate 70 70 Respiratory Rate 20 Blood Pressure 111/31 L 104/30 L Pulse Oximetry 95 Oxygen Delivery Fraction of Inspired Oxygen 35 04/23/25 02:00 04/23/25 02:00 04/23/25 02:00 Temperature Pulse Rate 70 70 70 Respiratory Rate 20 20 Blood Pressure 146/39 H Pulse Oximetry Oxygen Delivery Fraction of Inspired Oxygen 04/23/25 02:00 04/23/25 02:00 04/23/25 02:21 Temperature 99.2 F Pulse Rate 70 70 70 Respiratory Rate 20 20 Blood Pressure 167/42 H Pulse Oximetry 98 Oxygen Delivery Fraction of Inspired Oxygen 04/23/25 02:21 04/23/25 02:28 04/23/25 03:00 Temperature 99.3 F Pulse Rate 70 70 70 Respiratory Rate 20 20 Blood Pressure 116/30 L Pulse Oximetry 98 99 Oxygen Delivery Mechanical Ventilation Fraction of Inspired Oxygen 35 04/23/25 04:00 04/23/25 04:00 04/23/25 04:00 Temperature 99.5 F Pulse Rate 70 70 70 Respiratory Rate 20 20 Blood Pressure 164/44 H 164/44 H Pulse Oximetry 93 Oxygen Delivery Fraction of Inspired Oxygen 04/23/25 04:00 04/23/25 04:00 04/23/25 04:00 Temperature Pulse Rate 70 Respiratory Rate 20 Blood Pressure Pulse Oximetry Oxygen Delivery Mechanical Ventilation Fraction of Inspired Oxygen 30 35 04/23/25 04:00 04/23/25 04:15 04/23/25 05:00 Temperature 99.5 F Pulse Rate 70 70 70 Respiratory Rate 20 Blood Pressure 131/39 L 127/40 L Pulse Oximetry 96 Oxygen Delivery Fraction of Inspired Oxygen 04/23/25 05:24 04/23/25 05:53 04/23/25 05:54 Temperature Pulse Rate 70 71 71 Respiratory Rate 20 Blood Pressure 140/45 L Pulse Oximetry 98 Oxygen Delivery Mechanical Ventilation Fraction of Inspired Oxygen 30 04/23/25 05:54 04/23/25 06:00 04/23/25 06:00 Temperature 99.5 F Pulse Rate 71 70 71 Respiratory Rate 20 20 Blood Pressure 128/42 L Pulse Oximetry 96 Oxygen Delivery Fraction of Inspired Oxygen 04/23/25 07:00 04/23/25 08:00 04/23/25 08:00 Temperature 99.5 F Pulse Rate 70 Respiratory Rate 20 Blood Pressure 139/51 L Pulse Oximetry 94 Oxygen Delivery Mechanical Ventilation Fraction of Inspired Oxygen 35 35 04/23/25 08:00 04/23/25 08:00 04/23/25 08:00 Temperature 99.5 F Pulse Rate 70 71 70 Respiratory Rate 20 14 Blood Pressure 134/40 L Pulse Oximetry 97 Oxygen Delivery Fraction of Inspired Oxygen 04/23/25 08:00 04/23/25 08:00 04/23/25 08:31 Temperature Pulse Rate 71 70 70 Respiratory Rate 14 Blood Pressure Pulse Oximetry 96 Oxygen Delivery Mechanical Ventilation Fraction of Inspired Oxygen 30 04/23/25 08:31 04/23/25 08:41 04/23/25 09:00 Temperature 99.6 F Pulse Rate 70 72 71 Respiratory Rate 16 16 16 Blood Pressure 142/48 H Pulse Oximetry 98 Oxygen Delivery Fraction of Inspired Oxygen 04/23/25 09:57 04/23/25 10:00 04/23/25 10:00 Temperature 99.6 F 99.6 F Pulse Rate 70 70 70 Respiratory Rate 18 18 Blood Pressure 152/45 H Pulse Oximetry 94 94 Oxygen Delivery Fraction of Inspired Oxygen 04/23/25 10:00 04/23/25 10:00 04/23/25 10:00 Temperature Pulse Rate 70 70 70 Respiratory Rate 16 16 Blood Pressure Pulse Oximetry Oxygen Delivery Fraction of Inspired Oxygen 04/23/25 10:00 04/23/25 10:01 04/23/25 11:00 Temperature 99.6 F 99.6 F 99.5 F Pulse Rate 70 70 71 Respiratory Rate 17 18 16 Blood Pressure 152/45 H 101/40 L Pulse Oximetry 98 97 97 Oxygen Delivery Fraction of Inspired Oxygen 04/23/25 11:34 04/23/25 11:50 04/23/25 11:52 Temperature Pulse Rate 70 70 70 Respiratory Rate 16 Blood Pressure 62/25 L 111/40 L Pulse Oximetry Oxygen Delivery Fraction of Inspired Oxygen 04/23/25 11:52 04/23/25 12:00 04/23/25 12:00 Temperature 99.3 F Pulse Rate 70 70 Respiratory Rate 16 16 Blood Pressure 157/46 H Pulse Oximetry 99 Oxygen Delivery Fraction of Inspired Oxygen 30 04/23/25 12:00 04/23/25 12:05 04/23/25 12:15 Temperature Pulse Rate 70 70 Respiratory Rate Blood Pressure 165/49 H Pulse Oximetry 98 Oxygen Delivery Mechanical Ventilation Mechanical Ventilation Fraction of Inspired Oxygen 35 30 04/23/25 12:25 04/23/25 13:58 04/23/25 14:00 Temperature 99.4 F 99.3 F Pulse Rate 70 70 71 Respiratory Rate 16 16 Blood Pressure Pulse Oximetry 99 97 Oxygen Delivery Fraction of Inspired Oxygen 04/23/25 14:00 04/23/25 14:00 04/23/25 14:00 Temperature Pulse Rate 70 70 70 Respiratory Rate 16 16 Blood Pressure 108/34 L Pulse Oximetry Oxygen Delivery Fraction of Inspired Oxygen 04/23/25 14:00 04/23/25 14:01 04/23/25 14:15 Temperature 99.3 F 99.3 F 99.3 F Pulse Rate 70 70 71 Respiratory Rate 16 16 16 Blood Pressure 108/34 L Pulse Oximetry 97 97 96 Oxygen Delivery Fraction of Inspired Oxygen 04/23/25 14:16 04/23/25 15:00 04/23/25 15:07 Temperature 99.3 F 99.2 F Pulse Rate 71 70 71 Respiratory Rate 16 16 Blood Pressure 99/35 L 107/40 L Pulse Oximetry 96 97 97 Oxygen Delivery Mechanical Ventilation Fraction of Inspired Oxygen 30 04/23/25 15:07 04/23/25 15:14 04/23/25 15:48 Temperature Pulse Rate 71 70 70 Respiratory Rate 16 16 16 Blood Pressure Pulse Oximetry Oxygen Delivery Fraction of Inspired Oxygen 04/23/25 15:49 04/23/25 15:50 04/23/25 16:00 Temperature Pulse Rate 70 70 Respiratory Rate 16 Blood Pressure 143/43 H Pulse Oximetry Oxygen Delivery Fraction of Inspired Oxygen 30 04/23/25 16:00 04/23/25 16:00 04/23/25 16:56 Temperature 99.2 F Pulse Rate 70 70 70 Respiratory Rate 16 16 Blood Pressure 132/41 L Pulse Oximetry 97 98 97 Oxygen Delivery Mechanical Ventilation Mechanical Ventilation Fraction of Inspired Oxygen 30 30 Exam Narrative: +ETT +OGT sedated on vent; FiO2=30 and PEEP=8 RIJ line rhythm paced with Afib lungs decreased BS per nursing staff pale +garcia Results Labs 04/23/25 05:30 04/23/25 05:30 Labs: Short CBC 04/23/25 Range/Units 05:30 WBC 5.6 (4.5-10.0) K/mm3 Hgb 12.3 (12.0-15.0) g/dL Hct 38.3 (37.0-47.0) % Plt Count 148 L (150-375) k/mm3 BMP 04/23/25 05:30 Sodium 138 Potassium 3.4 Chloride 103 Carbon Dioxide 31 H BUN 18 H Creatinine 0.97 Glucose 119 H Calcium 8.7 Cardiac Enzymes 04/23/25 Range/Units 09:06 Troponin I 0.171 H* (0.000-0.034) ng/mL Liver Function 04/23/25 Range/Units 05:30 Total Bilirubin 0.9 (0.2-1.3) mg/dL AST 27 (14-36) U/L ALT 8 (6-35) U/L Alkaline Phosphatase 77 (38-126) U/L Albumin 3.2 L (3.5-5.1) g/dL
[2025-04-23] MEDS: APIXABAN 5 MG TABLET PO (18:12)
[2025-04-23] MEDS: SODIUM CHLORIDE 0.9% IV 1,000 ML 100 ML IV CONT (19:34)
[2025-04-23] MEDS: ATORVASTATIN 40 MG TABLET 80 MG PO (20:26)
[2025-04-23 22:20] LABS: MRSA (PCR) DETECTED (NOT DETECTE)
[2025-04-24] VITALS (35 sets, daily range): BP systolic 100–152; BP diastolic 32–80; PULSE 70–78; RESP 16–34; TEMP 37.4–39.1; O2SAT 90–98
[2025-04-24] MEDS: IPRATROPIUM 0.5 MG/ALBUTEROL SULFATE 2.5 MG (BASE) AMPUL.NEB 3 ML INHALATION ×2 (02:37→07:45)
[2025-04-24] MEDS: FENTANYL 2,500MCG/NS250ML(*CRX 2,500 MCG/250 ML BAG IV CONT (02:42)
[2025-04-24] MEDS: MIDAZOLAM 100MG/NS 100ML(*CRX) 100 MG/100 ML BAG IV CONT (02:44)
[2025-04-24] MEDS: PIPERACILLIN/TAZOBACTAM SOD 2.25 GM in SODIUM CHLORIDE 0.9% IV 50 ML 100 ML IVPB ×2 (04:53→11:32)
[2025-04-24] MEDS: CENTRAL LINE FLUSH 10 ML IV PUSH ×3 (05:04→20:59)
[2025-04-24 05:18] LABS: Hematocrit 38.9 % (37.0-47.0); Hemoglobin 12.3 g/dL (12.0-15.0); Immature Granulocyte Percent A 0.2 % (0-0.5); Lymphocytes Absolute Auto 0.53 K/mm3 (0.9-3.2); Mean Corpuscular HGB Conc 31.6 g/dl (32-36); Mean Corpuscular Hemoglobin 31.5 pg (26-34); Mean Corpuscular Volume 99.5 fl (80-100); Nucleated Red Blood Cells Absolute Auto 0.000 K/mm3 (0.0-0.012); Nucleated Red Blood Cells Perc 0.0 % (0.0-0.2); Platelet Count Result 148 k/mm3 (150-375); Red Blood Count 3.91 M/mm3 (4.2-5.4); White Blood Count 5.2 K/mm3 (4.5-10.0)
[2025-04-24 05:32] LABS: INR 1.7; Prothrombin Time 19.8 Seconds (11.1-14.7)
[2025-04-24 05:33] LABS: Partial Thromboplastin Time 41.5 Seconds (22.3-36.8)
[2025-04-24 05:45] LABS: Alveolar/Arterial O2 Gradient 86.7 mmHg; Carboxyhemoglobin 1.8 % THb (0-2.0); Fractional Inspired Oxygen 30 %; HCO3 ABG 29.5 mEq/l (22.0-26.0); Methemoglobin ABG 0.1 %THb (0-1.5); Oxygen Content ABG 19.6 %vol (16.0-22.0); Oxygen Saturation ABG 93.6 % (95.0-100.0); PCO2 ABG 49.5 mmHg (35.0-45.0); PO2 ABG 69.0 mmHg (80.0-100.0); PO2 FiO2 Ratio Arterial Blood 2.30 %; Reduced Hemoglobin 7.0 %THb (0-5.0)
[2025-04-24 05:47] LABS: Alanine Aminotransferase 7 U/L (6-35); Albumin Level 3.1 g/dL (3.5-5.1); Alkaline Phosphatase 79 U/L (38-126); Anion Gap 2 mmol/L (4-12); Aspartate Amino Transferase 26 U/L (14-36); Bilirubin,Total 0.8 mg/dL (0.2-1.3); Blood Urea Nitrogen 23 mg/dL (7-17); Calcium 8.6 mg/dL (8.4-10.2); Carbon Dioxide 30 mmol/L (22-30); Chloride 103 mmol/L (98-107); Estimated Glomerular Filt Rate 42; Glucose 203 mg/dL (65-110); Magnesium 1.7 mg/dL (1.6-2.3); Potassium 4.0 mmol/L (3.4-5.0); Sodium 135 mmol/L (137-145); Total Protein 5.9 g/dL (6.3-8.2)
[2025-04-24 06:20] LABS: Arterial Blood Gas Ventilator rate 16 /MIN; Site Drawn RIGHT RADIAL
[2025-04-24 06:21] LABS: Arterial Blood Gas Tidal Volume 320 ml
[2025-04-24] MEDS: VANCOMYCIN 1,500 MG/NS 500 ML 1,500 MG/500 ML BAG 250 MG IVPB (06:23)
[2025-04-24] MEDS: PANTOPRAZOLE SODIUM IV 40 MG VIAL IV PUSH (08:02)
[2025-04-24] MEDS: FUROSEMIDE INJ 100 MG/10 ML VIAL 80 MG IV PUSH (08:02)
--- NOTE | 2025-04-24 09:03 | WPDINTPN2 ---
Assessment and Plan Assessment and Plan (1) Acute hypoxic respiratory failure: Code(s): J96.01 - Acute respiratory failure with hypoxia Status: Acute Assessment and Plan: 04/22/2025, I was called to the rapid response as patient was getting her breathing treatment, went unresponsive and hypoxic upon arrival to the room patient had a pulse, oxygen was being bagged, O2 sats were 96-98%, blood pressures were stable. Patient was unresponsive, skin was mottled from the abdomen to her lower extremities. I decided to intubate her on the medical floor. -04/22: Patient was intubated successfully 04/24 -currently on CMV mode of ventilation, peep of 8, 30% FiO2 -continue bronchodilators -sedated with fentanyl and Versed infusion, maintain RASS of 0 to -2 X-ray shows CHF. Findings are slightly progressed compared to the prior study. Lasix IV Broad-spectrum Antibiotics as below for pneumonia 04/22: repeat CT brain: no acute intracranial abnormality 04/22: CT chest abdomen and pelvis IMPRESSION: 1. CHF and superimposed bronchopneumonia. There is underlying chronic lung disease. Follow-up is recommended to assess. 2. No acute intra-abdominal process. 3. Pancreatic lesion suspected. Contrast-enhanced MRI is recommended. (2) Cellulitis: Code(s): L03.90 - Cellulitis, unspecified Status: Acute Assessment and Plan: Right lower extremity cellulitis with ruptured blister and purulent drainage 04/17: Blood cultures negative x2 04/20: Right lower extremity wound culture shows g negative bacilli Patient will ceftriaxone, and vancomycin (04/18). DC ceftriaxone -will continue vancomycin (04/18) and Zosyn (04/22) - 04/23: Infectious disease consulted, discussed with ID will continue vancomycin and Zosyn For discuss Infectious Disease regarding further testing antibodies. 04/22: CT right lower extremity: Severe cellulitis. Absence of contrast limits evaluation for abscess however there is no gross loculated fluid collection. There is no air identified suggest necrotizing fasciitis. If there remains clinical concern contrast-enhanced MRI is recommended (3) Shock: Code(s): R57.9 - Shock, unspecified Status: Acute Assessment and Plan: 04/23: patient was hypotensive on the evening of 04/22, started on Levophed, which was later stopped. 04/23: Patient was hypotensive again, today and Levophed was started to maintain SBP > 100 mmHg or MAP > 65 mmHg - 04/20/2025 blood cultures: Negative x2 - 04/20/2025 right lower extremity wound culture growing Gram-negative bacilli - continue antibiotics per Infectious Disease -off Levophed. Will start diuretics Check procalcitonin Echocardiogram shows severe aortic stenosis and regurgitation along with mild dilation of left ventricle. Left atrium is severely dilated (4) Fall: Code(s): W19.XXXA - Unspecified fall, initial encounter Status: Acute Assessment and Plan: Patient presented on 04/17/2025 after having a fall, she hit her face and head but did not lose any consciousness. She is on Eliquis and Plavix at home -04/17: CT brain on admission did not show any acute intracranial abnormality, remote right cerebellar lacunar infarct -04/17: CT spine: Is this showed severe cervical spondylosis with no acute osseous abnormality, mild pulmonary edema at the apices of the lung (5) Atrial fibrillation: Qualifiers: Atrial fibrillation type: unspecified chronic Qualified Code(s): I48.20 - Chronic atrial fibrillation, unspecified Code(s): I48.91 - Unspecified atrial fibrillation Status: Chronic Assessment and Plan: Patient has a history of atrial fibrillation, has a leadless pacemaker as seen on the chest x-ray -patient on apixaban and Plavix at home which was restarted at the hospital on 04/18/2025 -04/22: CT brain with no acute intracranial abnormality Continue apixaban and clopidogrel (6) Acute exacerbation of CHF (congestive heart failure): Code(s): I50.9 - Heart failure, unspecified Status: Acute Assessment and Plan: Patient has a history of congestive heart failure, on Lasix, spironolactone, Entresto, will continue to hold for now given patient does get intubated, with adequate blood pressures S resume diuretics (7) HLD (hyperlipidemia): Code(s): E78.5 - Hyperlipidemia, unspecified Status: Acute Assessment and Plan: Continue atorvastatin (8) Hypertension: Qualifiers: Hypertension type: primary hypertension Qualified Code(s): I10 - Essential (primary) hypertension Code(s): I10 - Essential (primary) hypertension Status: Chronic Assessment and Plan: Hold all antihypertensives as patient is intubated on positive pressure ventilation and sedation, hypotensive on Levophed (9) T2DM (type 2 diabetes mellitus): Qualifiers: Diabetes mellitus complication status: without complication Diabetes mellitus senior care insulin use: with manager intermediate use Qualified Code(s): E11.9 - Type 2 diabetes mellitus without complications; Z79.4 - FDC (current) use of insulin Code(s): E11.9 - Type 2 diabetes mellitus without complications Status: Chronic Assessment and Plan: Continue Accu-Cheks and sliding scale insulin Resume Lantus Plan DVT prophylaxis: Patient on Eliquis and Plavix, will continue to hold for now Stress ulcer prophylaxis: Protonix IV Nutrition: Continue tube feeds Code Status: DNR Critical Care Time Spent: 30 minutes Due to a high probability of clinically significant, life threatening deterioration, the patient required my highest level of preparedness to intervene emergently and I personally spent this critical care time directly and personally managing the patient. This critical care time included obtaining a history; examining the patient; pulse oximetry; ordering and review of studies; arranging urgent treatment with development of a management plan; evaluation of patient's response to treatment; frequent reassessment; and discussions with other providers. It was exclusive of separately billable procedures and treating other patients and teaching time. Please see Assessment and Plan section and the rest of the note for further information on patient assessment and treatment This dictation may have been done utilizing a voice recognition system. Attempts have been made to correct errors. However, there may be uncorrected grammatical, spelling, and recognitions errors present. Subjective Date/time seen: 04/24/25 Overnight events reviewed. Episode of low-grade fever Continues to be on mechanical ventilation 30% Off Levophed Continues to be sedated with Versed and fentanyl Tube feeds Interval history: Reason for consult: Acute respiratory failure, encephalopathy, unresponsiveness, requiring intubation and mechanical ventilation 04/22 Intubated Review of Systems Review of Systems: ROS unobtainable: Yes unobtainable due to endotracheal tube, unobtainable due to medical condition and unobtainable due to mental status Exam Narrative: General: Intubated, sedated no acute distress HEENT:? Pupils equal and reactive, sclera is clear Neck:? Supple Respiratory:? Coarse breath sounds bilaterally, no wheezing, adequate air entry Cardiac:? Paced rhythm, rate controlled, loud systolic murmur 07/20 present Abdomen:? Soft, nontender, nondistended, hypoactive bowel sounds, obese Extremities:? Right lower leg erythema, pitting edema, tenderness, purulent drainage from rupture of blister. No crepitus Neuro:? Intubated, sedated, does not open her eyes or follow simple commands Skin:? Multiple bruising areas on the upper and lower extremities, yeast infection in the intertriginous area Psych:? Unable to assess at this time Objective Data Vital Signs Vital Signs: Vital Signs - 24 hr 04/23/25 09:57 04/23/25 10:00 04/23/25 10:00 Temperature 37.6 C 37.6 C Pulse Rate 70 70 70 Respiratory Rate 18 18 Blood Pressure 152/45 H Pulse Oximetry 94 94 Oxygen Delivery Fraction of Inspired Oxygen 04/23/25 10:00 04/23/25 10:00 04/23/25 10:00 Temperature Pulse Rate 70 70 70 Respiratory Rate 16 16 Blood Pressure Pulse Oximetry Oxygen Delivery Fraction of Inspired Oxygen 04/23/25 10:00 04/23/25 10:01 04/23/25 11:00 Temperature 37.6 C 37.6 C 37.5 C Pulse Rate 70 70 71 Respiratory Rate 17 18 16 Blood Pressure 152/45 H 101/40 L Pulse Oximetry 98 97 97 Oxygen Delivery Fraction of Inspired Oxygen 04/23/25 11:34 04/23/25 11:50 04/23/25 11:52 Temperature Pulse Rate 70 70 70 Respiratory Rate 16 Blood Pressure 62/25 L 111/40 L Pulse Oximetry Oxygen Delivery Fraction of Inspired Oxygen 04/23/25 11:52 04/23/25 12:00 04/23/25 12:00 Temperature 37.4 C Pulse Rate 70 70 Respiratory Rate 16 16 Blood Pressure 157/46 H Pulse Oximetry 99 Oxygen Delivery Fraction of Inspired Oxygen 30 04/23/25 12:00 04/23/25 12:05 04/23/25 12:15 Temperature Pulse Rate 70 70 Respiratory Rate Blood Pressure 165/49 H Pulse Oximetry 98 Oxygen Delivery Mechanical Ventilation Mechanical Ventilation Fraction of Inspired Oxygen 35 30 04/23/25 12:25 04/23/25 13:58 04/23/25 14:00 Temperature 37.4 C 37.4 C Pulse Rate 70 70 71 Respiratory Rate 16 16 Blood Pressure Pulse Oximetry 99 97 Oxygen Delivery Fraction of Inspired Oxygen 04/23/25 14:00 04/23/25 14:00 04/23/25 14:00 Temperature Pulse Rate 70 70 70 Respiratory Rate 16 16 Blood Pressure 108/34 L Pulse Oximetry Oxygen Delivery Fraction of Inspired Oxygen 04/23/25 14:00 04/23/25 14:01 04/23/25 14:15 Temperature 37.4 C 37.4 C 37.4 C Pulse Rate 70 70 71 Respiratory Rate 16 16 16 Blood Pressure 108/34 L Pulse Oximetry 97 97 96 Oxygen Delivery Fraction of Inspired Oxygen 04/23/25 14:16 04/23/25 14:17 04/23/25 15:00 Temperature 37.4 C 37.4 C 37.3 C Pulse Rate 71 71 70 Respiratory Rate 16 16 16 Blood Pressure 99/35 L 107/40 L Pulse Oximetry 96 96 97 Oxygen Delivery Fraction of Inspired Oxygen 04/23/25 15:07 04/23/25 15:07 04/23/25 15:14 Temperature Pulse Rate 71 71 70 Respiratory Rate 16 16 Blood Pressure Pulse Oximetry 97 Oxygen Delivery Mechanical Ventilation Fraction of Inspired Oxygen 30 04/23/25 15:48 04/23/25 15:49 04/23/25 15:50 Temperature Pulse Rate 70 70 70 Respiratory Rate 16 16 Blood Pressure 143/43 H Pulse Oximetry Oxygen Delivery Fraction of Inspired Oxygen 04/23/25 16:00 04/23/25 16:00 04/23/25 16:00 Temperature 37.3 C Pulse Rate 70 70 Respiratory Rate 16 16 Blood Pressure 132/41 L Pulse Oximetry 97 98 Oxygen Delivery Mechanical Ventilation Fraction of Inspired Oxygen 30 30 04/23/25 16:00 04/23/25 16:56 04/23/25 17:55 Temperature Pulse Rate 71 70 70 Respiratory Rate Blood Pressure 120/39 L Pulse Oximetry 97 Oxygen Delivery Mechanical Ventilation Fraction of Inspired Oxygen 30 04/23/25 17:56 04/23/25 17:56 04/23/25 18:00 Temperature Pulse Rate 70 70 71 Respiratory Rate 16 16 Blood Pressure Pulse Oximetry Oxygen Delivery Fraction of Inspired Oxygen 04/23/25 18:06 04/23/25 18:15 04/23/25 18:16 Temperature 37.4 C 37.4 C 37.4 C Pulse Rate 70 71 70 Respiratory Rate 16 16 16 Blood Pressure 144/40 H Pulse Oximetry 97 96 97 Oxygen Delivery Fraction of Inspired Oxygen 04/23/25 18:30 04/23/25 18:31 04/23/25 18:45 Temperature 37.5 C 37.5 C 37.5 C Pulse Rate 71 71 71 Respiratory Rate 16 16 17 Blood Pressure 141/41 H Pulse Oximetry 96 95 96 Oxygen Delivery Fraction of Inspired Oxygen 04/23/25 18:46 04/23/25 19:00 04/23/25 19:34 Temperature 37.5 C 37.5 C Pulse Rate 71 71 70 Respiratory Rate 16 23 H Blood Pressure 112/41 L 107/37 L 95/36 L Pulse Oximetry 96 97 Oxygen Delivery Fraction of Inspired Oxygen 04/23/25 20:00 04/23/25 20:00 04/23/25 20:00 Temperature Pulse Rate 70 70 70 Respiratory Rate 16 16 Blood Pressure 137/42 L Pulse Oximetry Oxygen Delivery Fraction of Inspired Oxygen 04/23/25 20:00 04/23/25 20:00 04/23/25 20:00 Temperature 37.4 C Pulse Rate 70 Respiratory Rate 16 Blood Pressure 137/42 L Pulse Oximetry 98 98 Oxygen Delivery Mechanical Ventilation Fraction of Inspired Oxygen 30 30 04/23/25 20:00 04/23/25 20:10 04/23/25 20:10 Temperature Pulse Rate 70 71 71 Respiratory Rate 16 Blood Pressure Pulse Oximetry 100 Oxygen Delivery Mechanical Ventilation Fraction of Inspired Oxygen 30 04/23/25 20:16 04/23/25 20:24 04/23/25 21:00 Temperature 37.4 C Pulse Rate 70 70 70 Respiratory Rate 16 16 Blood Pressure 134/40 L 107/40 L Pulse Oximetry 97 Oxygen Delivery Fraction of Inspired Oxygen 04/23/25 22:00 04/23/25 22:00 04/23/25 22:00 Temperature Pulse Rate 70 70 70 Respiratory Rate 16 16 Blood Pressure 117/41 L Pulse Oximetry Oxygen Delivery Fraction of Inspired Oxygen 04/23/25 22:00 04/23/25 22:00 04/23/25 22:48 Temperature 37.4 C Pulse Rate 70 70 70 Respiratory Rate 16 Blood Pressure 117/41 L 141/45 H Pulse Oximetry 98 Oxygen Delivery Fraction of Inspired Oxygen 04/23/25 22:52 04/23/25 23:00 04/24/25 00:00 Temperature 37.4 C Pulse Rate 70 70 Respiratory Rate 16 Blood Pressure 117/37 L Pulse Oximetry 98 98 98 Oxygen Delivery Mechanical Ventilation Mechanical Ventilation Fraction of Inspired Oxygen 30 30 12/09/25 00:00 04/24/25 00:00 04/24/25 00:00 Temperature 37.4 C Pulse Rate 71 71 Respiratory Rate 16 Blood Pressure 106/37 L 106/37 L Pulse Oximetry 98 Oxygen Delivery Fraction of Inspired Oxygen 30 04/24/25 00:00 04/24/25 00:00 04/24/25 00:00 Temperature Pulse Rate 71 71 70 Respiratory Rate 16 16 Blood Pressure Pulse Oximetry Oxygen Delivery Fraction of Inspired Oxygen 04/24/25 01:00 04/24/25 02:00 04/24/25 02:00 Temperature 37.5 C Pulse Rate 71 71 71 Respiratory Rate 16 16 Blood Pressure 107/40 L 120/41 L Pulse Oximetry 97 Oxygen Delivery Fraction of Inspired Oxygen 04/24/25 02:00 04/24/25 02:00 04/24/25 02:00 Temperature 37.6 C Pulse Rate 71 71 71 Respiratory Rate 16 16 Blood Pressure 120/41 L Pulse Oximetry 98 Oxygen Delivery Fraction of Inspired Oxygen 04/24/25 02:37 04/24/25 02:37 04/24/25 02:42 Temperature Pulse Rate 71 71 71 Respiratory Rate 16 16 Blood Pressure Pulse Oximetry 97 Oxygen Delivery Mechanical Ventilation Fraction of Inspired Oxygen 30 04/24/25 02:42 04/24/25 02:44 04/24/25 02:44 Temperature Pulse Rate 71 72 72 Respiratory Rate 16 16 16 Blood Pressure Pulse Oximetry Oxygen Delivery Fraction of Inspired Oxygen 04/24/25 02:44 04/24/25 03:00 04/24/25 04:00 Temperature 37.6 C H 37.7 C H Pulse Rate 72 72 72 Respiratory Rate 16 16 16 Blood Pressure 112/38 L 124/39 L Pulse Oximetry 97 97 Oxygen Delivery Fraction of Inspired Oxygen 04/24/25 04:00 04/24/25 04:00 04/24/25 04:00 Temperature Pulse Rate 72 72 72 Respiratory Rate 16 16 Blood Pressure 124/39 L Pulse Oximetry Oxygen Delivery Fraction of Inspired Oxygen 04/24/25 04:00 04/24/25 04:00 04/24/25 04:00 Temperature Pulse Rate 71 Respiratory Rate Blood Pressure Pulse Oximetry 97 Oxygen Delivery Mechanical Ventilation Fraction of Inspired Oxygen 30 30 04/24/25 04:45 04/24/25 05:00 04/24/25 05:15 Temperature 37.7 C H Pulse Rate 72 73 74 Respiratory Rate 17 Blood Pressure 149/42 H 101/36 L Pulse Oximetry 94 93 Oxygen Delivery Mechanical Ventilation Fraction of Inspired Oxygen 30 04/24/25 06:00 04/24/25 06:00 04/24/25 06:00 Temperature Pulse Rate 75 75 75 Respiratory Rate 16 16 Blood Pressure 101/43 L Pulse Oximetry Oxygen Delivery Fraction of Inspired Oxygen 04/24/25 06:00 04/24/25 06:00 04/24/25 07:00 Temperature 37.4 C 37.4 C Pulse Rate 75 75 75 Respiratory Rate 16 16 Blood Pressure 101/43 L 111/46 L Pulse Oximetry 93 90 Oxygen Delivery Fraction of Inspired Oxygen 04/24/25 07:45 04/24/25 07:48 04/24/25 08:00 Temperature Pulse Rate 75 73 75 Respiratory Rate 16 Blood Pressure 112/40 L Pulse Oximetry 94 Oxygen Delivery Mechanical Ventilation Fraction of Inspired Oxygen 30 04/24/25 08:00 04/24/25 08:00 04/24/25 08:00 Temperature Pulse Rate 78 75 75 Respiratory Rate 16 16 16 Blood Pressure Pulse Oximetry 94 Oxygen Delivery Mechanical Ventilation Fraction of Inspired Oxygen 30 04/24/25 08:00 04/24/25 08:00 04/24/25 08:00 Temperature 37.4 C Pulse Rate 75 75 Respiratory Rate 16 Blood Pressure 100/80 Pulse Oximetry 94 Oxygen Delivery Fraction of Inspired Oxygen 30 Intake/Output Intake/Output: Intake & Output 04/21/25 04/22/25 04/23/25 04/24/25 23:59 23:59 23:59 23:59 Intake Total 620 1073.6 547.3 943.1 Output Total 1450 880 540 100 Balance -830 193.6 7.3 843.1 Meds/Results Medications: Active Medications Generic Name Dose Route Start Last Admin Trade Name Freq PRN Reason Stop Dose Admin Acetaminophen 650 mg 04/17/25 21:00 04/24/25 06:14 Acetaminophen 325 Mg Tablet PO Not Given Q6HR JAIME Albuterol/Ipratropium 3 ml 04/24/25 07:53 Ipratropium 0.5 Mg/Albuterol Sulfate 2.5 Mg (Base) Ampul.Neb 3 Ml INHALATION Q6HRT PRN Wheezing Apixaban 5 mg 04/23/25 17:00 04/23/25 18:12 Apixaban 5 Mg Tablet PO 5 mg BID JAIME Administration Atorvastatin Calcium 80 mg 04/18/25 21:00 04/23/25 20:26 Atorvastatin 40 Mg Tablet PO 80 mg HS JAIME Administration Clopidogrel Bisulfate 75 mg 04/18/25 09:00 04/22/25 10:18 Clopidogrel Bisulfate 75 Mg Tablet PO 75 mg DAILY JAIME Administration Dextrose 12.5 gm 04/17/25 21:26 04/23/25 09:47 Dextrose 50% 25 Gm/50 Ml Syringe IV PUSH 12.5 gm PRN PRN Administration Hypoglycemia Protocol Docusate Sodium 100 mg 04/18/25 09:00 04/23/25 20:27 Docusate Sodium 100 Mg Capsule PO Not Given Q12HR JAIME Escitalopram Oxalate 2.5 mg 04/22/25 13:55 04/23/25 08:36 Escitalopram Oxalate 2.5 Mg Tablet PO 2.5 mg On Hold: 04/24/25 07:52 DAILY JAIME Administration Glucagon 1 mg 04/17/25 21:26 Glucagon For Inj 1 Mg Vial IM PRN PRN Hypoglycemia Protocol Glucose 15 gm 04/17/25 21:26 Glucose Oral Gel 15 Gm Of Glucse In 37.5 Gm Tube PO PRN PRN Hypoglycemia Protocol Dextrose 1,000 mls @ 100 mls/hr 04/17/25 21:26 Dextrose 5% 1,000 Ml IVPB PRN PRN Hypoglycemia Protocol Fentanyl Citrate 2,500 mcg in 250 mls @ 5 mls/hr 04/22/25 15:15 04/24/25 08:00 Fentanyl 2,500 Mcg/Ns 250 Ml IV CONT 50 mcg/hr .Q50H JAIME 5 mls/hr Protocol Titration 50 MCG/HR Midazolam HCl 100 mg in 100 mls @ 3 mls/hr 04/22/25 15:15 04/24/25 08:00 Versed 100 Mg/Ns 100 Ml IV CONT 3 mg/hr .[id number] JAIME 3 mls/hr Protocol Titration 3 MG/HR Piperacillin Sod/Tazobactam 50 mls @ 100 mls/hr 04/22/25 17:00 04/24/25 05:23 Sod 2.25 gm/ Sodium Chloride IVPB Infused Q6H JAIME Infusion Norepinephrine Bitartrate 8 mg in 250 mls @ 0 mls/hr 04/22/25 17:15 04/24/25 08:00 Levophed 8 Mg/D5w 250 Ml IV CONT 0 mcg/min .Q0M JAIME 0 mls/hr Protocol Titration 0 MCG/MIN Vancomycin HCl 1,500 mg in 500 mls @ 250 mls/hr 04/24/25 06:00 04/24/25 06:23 Vancomycin 1,500 Mg/Ns 500 Ml IVPB 250 mls/hr Q36H JAIME Administration Magnesium Sulfate 2 gm in 50 mls @ 25 mls/hr 04/24/25 07:47 Magnesium Sulf 2 Gm/Water 50ml IVPB 04/24/25 09:46 ONCE ONE Insulin Aspart 2 - 5 units 04/24/25 09:00 Insulin Aspart (*Bkc) 100 Units/Ml SUB-Q Q4HR JAIME Protocol Insulin Glargine 10 units 04/24/25 09:00 Insulin Glargine (*Bkc) 100 Units/Ml SUB-Q QAM JAIME Multi-Ingred Cream/Lotion/Oil/Oint 1 applic 04/22/25 21:00 04/23/25 20:27 Mineral Oil/White Petrolatum Ointment EACH EYE 1 applic Q12HR JAIME Administration Pantoprazole Sodium 40 mg 04/23/25 09:00 04/24/25 08:02 Pantoprazole Sodium Iv 40 Mg Vial IV PUSH 40 mg QAM JAIME Administration Sodium Chloride 10 ml 04/22/25 22:00 04/24/25 05:04 Central Line Flush IV PUSH 10 ml Q8HR JAIME Administration Sodium Chloride 20 ml 04/22/25 16:39 Central Line Flush IV PUSH PRN PRN after blood draws Venlafaxine HCl 150 mg 04/18/25 09:00 04/23/25 08:35 Venlafaxine Hcl 75 Mg Tablet PO 150 mg On Hold: 04/24/25 07:52 DAILY JAIME Administration Radiology Results: ITS Impressions Cervical Spine CT 04/17/25 16:46 IMPRESSION: 1. Severe cervical spondylosis with no acute osseous abnormality. 2. Mild pulmonary edema at the apices of lungs. Abdomen X-Ray 04/22/25 16:03 Impression: 1. No acute abnormality. Head CT 04/22/25 16:27 Impression: 1.No acute intracranial abnormality. Chest/Abdomen/Pelvis CT 04/22/25 16:29 IMPRESSION: 1. CHF and superimposed bronchopneumonia. There is underlying chronic lung disease. Follow-up is recommended to assess. 2. No acute intra-abdominal process. 3. Pancreatic lesion suspected. Contrast-enhanced MRI is recommended. Lower Extremity CT 04/22/25 17:02 IMPRESSION: Severe cellulitis. Absence of contrast limits evaluation for abscess however there is no gross loculated fluid collection. There is no air identified suggest necrotizing fasciitis. If there remains clinical concern contrast-enhanced MRI is recommended Chest X-Ray 04/24/25 08:17 Impression: CHF. Findings are slightly progressed compared to the prior study. Labs Labs: Laboratory Results - last 24 hr 04/23/25 04/23/25 04/23/25 09:06 09:17 09:19 WBC RBC Hgb Hct MCV MCH MCHC RDW Plt Count MPV Immature Gran % (Auto) Neut % (Auto) Lymph % (Auto) [place] % (Auto) Eos % (Auto) Baso % (Auto) Lymph # (Auto) [place] # (Auto) Eos # (Auto) Baso # (Auto) Abs Immat Gran (auto) Absolute Neuts (auto) Absolute Nucleated RBC Nucleated RBC % PT INR APTT Puncture Site ABG pH ABG pCO2 ABG pO2 ABG PO2/FiO2 Ratio ABG HCO3 ABG O2 Saturation ABG O2 Content ABG Base Excess A-a Gradient Oxyhemoglobin Carboxyhemoglobin Methemoglobin Reduced Hemoglobin Total Hemoglobin O2 Delivery Device O2 Liters/Min Minute Volume Vent Rate Vent Mode FiO2 Tidal Volume PEEP Peak Inspir Pressure Pressure Support Sodium Potassium Chloride Carbon Dioxide Anion Gap BUN Creatinine Estim Creat Clear Calc Estimated GFR Glucose POC Capillary Glucose 49 L* 54 L* Lactic Acid Calcium Phosphorus Magnesium Total Bilirubin AST ALT Alkaline Phosphatase Troponin I 0.171 H* Total Protein Albumin Nasal MRSA (PCR) 04/23/25 04/23/25 04/23/25 09:42 09:44 10:11 WBC RBC Hgb Hct MCV MCH MCHC RDW Plt Count MPV Immature Gran % (Auto) Neut % (Auto) Lymph % (Auto) [place] % (Auto) Eos % (Auto) Baso % (Auto) Lymph # (Auto) [place] # (Auto) Eos # (Auto) Baso # (Auto) Abs Immat Gran (auto) Absolute Neuts (auto) Absolute Nucleated RBC Nucleated RBC % PT INR APTT Puncture Site ABG pH ABG pCO2 ABG pO2 ABG PO2/FiO2 Ratio ABG HCO3 ABG O2 Saturation ABG O2 Content ABG Base Excess A-a Gradient Oxyhemoglobin Carboxyhemoglobin Methemoglobin Reduced Hemoglobin Total Hemoglobin O2 Delivery Device O2 Liters/Min Minute Volume Vent Rate Vent Mode FiO2 Tidal Volume PEEP Peak Inspir Pressure Pressure Support Sodium Potassium Chloride Carbon Dioxide Anion Gap BUN Creatinine Estim Creat Clear Calc Estimated GFR Glucose POC Capillary Glucose 50 L* 57 L* 103 Lactic Acid Calcium Phosphorus Magnesium Total Bilirubin AST ALT Alkaline Phosphatase Troponin I Total Protein Albumin Nasal MRSA (PCR) 04/23/25 04/23/25 04/23/25 11:44 17:18 20:31 WBC RBC Hgb Hct MCV MCH MCHC RDW Plt Count MPV Immature Gran % (Auto) Neut % (Auto) Lymph % (Auto) [place] % (Auto) Eos % (Auto) Baso % (Auto) Lymph # (Auto) [place] # (Auto) Eos # (Auto) Baso # (Auto) Abs Immat Gran (auto) Absolute Neuts (auto) Absolute Nucleated RBC Nucleated RBC % PT INR APTT Puncture Site ABG pH ABG pCO2 ABG pO2 ABG PO2/FiO2 Ratio ABG HCO3 ABG O2 Saturation ABG O2 Content ABG Base Excess A-a Gradient Oxyhemoglobin Carboxyhemoglobin Methemoglobin Reduced Hemoglobin Total Hemoglobin O2 Delivery Device O2 Liters/Min Minute Volume Vent Rate Vent Mode FiO2 Tidal Volume PEEP Peak Inspir Pressure Pressure Support Sodium Potassium Chloride Carbon Dioxide Anion Gap BUN Creatinine Estim Creat Clear Calc Estimated GFR Glucose POC Capillary Glucose 130 H 71 168 H Lactic Acid Calcium Phosphorus Magnesium Total Bilirubin AST ALT Alkaline Phosphatase Troponin I Total Protein Albumin Nasal MRSA (PCR) 04/23/25 04/24/25 04/24/25 20:37 00:17 05:05 WBC RBC Hgb Hct MCV MCH MCHC RDW Plt Count MPV Immature Gran % (Auto) Neut % (Auto) Lymph % (Auto) [place] % (Auto) Eos % (Auto) Baso % (Auto) Lymph # (Auto) [place] # (Auto) Eos # (Auto) Baso # (Auto) Abs Immat Gran (auto) Absolute Neuts (auto) Absolute Nucleated RBC Nucleated RBC % PT INR APTT Puncture Site Right radial ABG pH 7.393 ABG pCO2 49.5 H ABG pO2 69.0 L ABG PO2/FiO2 Ratio 2.30 ABG HCO3 29.5 H ABG O2 Saturation 93.6 L ABG O2 Content 19.6 ABG Base Excess 3.5 A-a Gradient 86.7 Oxyhemoglobin 91.1 Carboxyhemoglobin 1.8 Methemoglobin 0.1 Reduced Hemoglobin 7.0 H Total Hemoglobin 15.3 O2 Delivery Device Ventilator O2 Liters/Min Not Reportable Minute Volume Not Reportable Vent Rate 16 Vent Mode Asv FiO2 30 Tidal Volume 320 PEEP 5 Peak Inspir Pressure Not Reportable Pressure Support Not Reportable Sodium Potassium Chloride Carbon Dioxide Anion Gap BUN Creatinine Estim Creat Clear Calc Estimated GFR Glucose POC Capillary Glucose 135 H Lactic Acid Calcium Phosphorus Magnesium Total Bilirubin AST ALT Alkaline Phosphatase Troponin I Total Protein Albumin Nasal MRSA (PCR) Detected A* 04/24/25 04/24/25 05:09 08:52 WBC 5.2 RBC 3.91 L Hgb 12.3 Hct 38.9 MCV 99.5 MCH 31.5 MCHC 31.6 L RDW 15.0 H Plt Count 148 L MPV 9.9 Immature Gran % (Auto) 0.2 Neut % (Auto) 73.8 H Lymph % (Auto) 10.[address] [place] % (Auto) 10.2 H Eos % (Auto) 4.8 H Baso % (Auto) 0.8 Lymph # (Auto) 0.[address] [place] # (Auto) 0.5 Eos # (Auto) 0.3 Baso # (Auto) 0.0 Abs Immat Gran (auto) 0.01 Absolute Neuts (auto) 3.9 Absolute Nucleated RBC 0.000 Nucleated RBC % 0.0 PT 19.8 H INR 1.7 APTT 41.5 H Puncture Site ABG pH ABG pCO2 ABG pO2 ABG PO2/FiO2 Ratio ABG HCO3 ABG O2 Saturation ABG O2 Content ABG Base Excess A-a Gradient Oxyhemoglobin Carboxyhemoglobin Methemoglobin Reduced Hemoglobin Total Hemoglobin O2 Delivery Device O2 Liters/Min Minute Volume Vent Rate Vent Mode FiO2 Tidal Volume PEEP Peak Inspir Pressure Pressure Support Sodium 135 L Potassium 4.0 Chloride 103 Carbon Dioxide 30 Anion Gap 2 L BUN 23 H Creatinine 1.21 H Estim Creat Clear Calc Not Reportable Estimated GFR 42 L Glucose 203 H POC Capillary Glucose 191 H Lactic Acid 1.3 Calcium 8.6 Phosphorus 4.0 Magnesium 1.7 Total Bilirubin 0.8 AST 26 ALT 7 Alkaline Phosphatase 79 Troponin I Total Protein 5.9 L Albumin 3.1 L Nasal MRSA (PCR) Quality VTE Prophylaxis VTE prophylaxis: pharmacologic ordered
[2025-04-24] MEDS: APIXABAN 5 MG TABLET PO ×2 (09:15→17:00)
[2025-04-24] MEDS: MINERAL OIL/WHITE PETROLATUM OINTMENT 1 APPLIC EACH EYE ×2 (09:15→20:56)
[2025-04-24] MEDS: CLOPIDOGREL BISULFATE 75 MG TABLET PO (09:15)
[2025-04-24] MEDS: MAGNESIUM SULF 2 GM/WATER 50ML 2 GM/50 ML BAG IVPB (09:18)
[2025-04-24] MEDS: INSULIN GLARGINE (*BKC) 100 UNITS/ML 10 UNITS SUB-Q (09:19)
[2025-04-24 09:46] LABS: Procalcitonin 0.1 ng/mL
--- NOTE | 2025-04-24 10:41 | P.PNINF_ITS ---
Progress Note: A&P Assessment and Plan (1) Cellulitis: Code(s): L03.90 - Cellulitis, unspecified Status: Acute (2) Pneumonia: Code(s): J18.9 - Pneumonia, unspecified organism Status: Acute Plan ASSESSMENT: 1. pneumonia; MRSA nares positive 2. acute respiratory failure s/p intubation 3. shock 4. heart failure 5. RLE cellulitis; wound cx MRSA and Klebsiella 6. CAD s/p CABG 7. s/p AVR 8. AFib 9. s/p pacer 10. HTN, HL, DVT 11. DM RECOMMENDATIONS: -change abx to IV doxycycline and ceftriaxone -blood cxs neg and final -sputum cx in process -possible palliative care? d/w pharmacy staff, potato sorter and son Pt was seen via video telehealth consultation with the assistance of staff. Chart, data and patient info reviewed. Patient was located at [facility] while I was in my [place] office. Subjective Date/time seen: 04/24/25 10:41 Interval history: low grade temps no leukocytosis no pressors Exam Narrative: abd soft NT RLE with decreased erythema and decreased edema +Morales Objective Data Vital Signs Vital Signs: Vital Signs - 24 hr 04/23/25 11:00 04/23/25 11:34 04/23/25 11:50 Temperature 99.5 F Pulse Rate 71 70 70 Respiratory Rate 16 16 Blood Pressure 101/40 L 62/25 L Pulse Oximetry 97 Oxygen Delivery Fraction of Inspired Oxygen 04/23/25 11:52 04/23/25 11:52 04/23/25 12:00 Temperature 99.3 F Pulse Rate 70 70 70 Respiratory Rate 16 16 Blood Pressure 111/40 L 157/46 H Pulse Oximetry 99 Oxygen Delivery Fraction of Inspired Oxygen 04/23/25 12:00 04/23/25 12:00 04/23/25 12:05 Temperature Pulse Rate 70 Respiratory Rate Blood Pressure Pulse Oximetry 98 Oxygen Delivery Mechanical Ventilation Mechanical Ventilation Fraction of Inspired Oxygen 30 35 30 04/23/25 12:15 04/23/25 12:25 04/23/25 13:58 Temperature 99.4 F 99.3 F Pulse Rate 70 70 70 Respiratory Rate 16 16 Blood Pressure 165/49 H Pulse Oximetry 99 97 Oxygen Delivery Fraction of Inspired Oxygen 04/23/25 14:00 04/23/25 14:00 04/23/25 14:00 Temperature Pulse Rate 71 70 70 Respiratory Rate 16 16 Blood Pressure Pulse Oximetry Oxygen Delivery Fraction of Inspired Oxygen 04/23/25 14:00 04/23/25 14:00 04/23/25 14:01 Temperature 99.3 F 99.3 F Pulse Rate 70 70 70 Respiratory Rate 16 16 Blood Pressure 108/34 L 108/34 L Pulse Oximetry 97 97 Oxygen Delivery Fraction of Inspired Oxygen 04/23/25 14:15 04/23/25 14:16 04/23/25 14:17 Temperature 99.3 F 99.3 F 99.3 F Pulse Rate 71 71 71 Respiratory Rate 16 16 16 Blood Pressure 99/35 L Pulse Oximetry 96 96 96 Oxygen Delivery Fraction of Inspired Oxygen 04/23/25 15:00 04/23/25 15:07 04/23/25 15:07 Temperature 99.2 F Pulse Rate 70 71 71 Respiratory Rate 16 16 Blood Pressure 107/40 L Pulse Oximetry 97 97 Oxygen Delivery Mechanical Ventilation Fraction of Inspired Oxygen 30 04/23/25 15:14 04/23/25 15:48 04/23/25 15:49 Temperature Pulse Rate 70 70 70 Respiratory Rate 16 16 16 Blood Pressure Pulse Oximetry Oxygen Delivery Fraction of Inspired Oxygen 04/23/25 15:50 04/23/25 16:00 04/23/25 16:00 Temperature Pulse Rate 70 70 Respiratory Rate 16 Blood Pressure 143/43 H Pulse Oximetry 97 Oxygen Delivery Mechanical Ventilation Fraction of Inspired Oxygen 30 30 04/23/25 16:00 04/23/25 16:00 04/23/25 16:56 Temperature 99.2 F Pulse Rate 70 71 70 Respiratory Rate 16 Blood Pressure 132/41 L Pulse Oximetry 98 97 Oxygen Delivery Mechanical Ventilation Fraction of Inspired Oxygen 30 04/23/25 17:55 04/23/25 17:56 04/23/25 17:56 Temperature Pulse Rate 70 70 70 Respiratory Rate 16 16 Blood Pressure 120/39 L Pulse Oximetry Oxygen Delivery Fraction of Inspired Oxygen 04/23/25 18:00 04/23/25 18:06 04/23/25 18:15 Temperature 99.4 F 99.4 F Pulse Rate 71 70 71 Respiratory Rate 16 16 Blood Pressure Pulse Oximetry 97 96 Oxygen Delivery Fraction of Inspired Oxygen 04/23/25 18:16 04/23/25 18:30 04/23/25 18:31 Temperature 99.4 F 99.5 F 99.5 F Pulse Rate 70 71 71 Respiratory Rate 16 16 16 Blood Pressure 144/40 H 141/41 H Pulse Oximetry 97 96 95 Oxygen Delivery Fraction of Inspired Oxygen 04/23/25 18:45 04/23/25 18:46 04/23/25 19:00 Temperature 99.5 F 99.5 F 99.5 F Pulse Rate 71 71 71 Respiratory Rate 17 16 23 H Blood Pressure 112/41 L 107/37 L Pulse Oximetry 96 96 97 Oxygen Delivery Fraction of Inspired Oxygen 04/23/25 19:34 04/23/25 20:00 04/23/25 20:00 Temperature Pulse Rate 70 70 70 Respiratory Rate 16 Blood Pressure 95/36 L 137/42 L Pulse Oximetry Oxygen Delivery Fraction of Inspired Oxygen 04/23/25 20:00 04/23/25 20:00 04/23/25 20:00 Temperature Pulse Rate 70 Respiratory Rate 16 Blood Pressure Pulse Oximetry 98 Oxygen Delivery Mechanical Ventilation Fraction of Inspired Oxygen 30 30 04/23/25 20:00 04/23/25 20:00 04/23/25 20:10 Temperature 99.4 F Pulse Rate 70 70 71 Respiratory Rate 16 Blood Pressure 137/42 L Pulse Oximetry 98 100 Oxygen Delivery Mechanical Ventilation Fraction of Inspired Oxygen 30 04/23/25 20:10 04/23/25 20:16 04/23/25 20:24 Temperature Pulse Rate 71 70 70 Respiratory Rate 16 16 Blood Pressure 134/40 L Pulse Oximetry Oxygen Delivery Fraction of Inspired Oxygen 04/23/25 21:00 04/23/25 22:00 04/23/25 22:00 Temperature 99.3 F Pulse Rate 70 70 70 Respiratory Rate 16 16 Blood Pressure 107/40 L 117/41 L Pulse Oximetry 97 Oxygen Delivery Fraction of Inspired Oxygen 04/23/25 22:00 04/23/25 22:00 04/23/25 22:00 Temperature 99.3 F Pulse Rate 70 70 70 Respiratory Rate 16 16 Blood Pressure 117/41 L Pulse Oximetry 98 Oxygen Delivery Fraction of Inspired Oxygen 04/23/25 22:48 04/23/25 22:52 04/23/25 23:00 Temperature 99.3 F Pulse Rate 70 70 70 Respiratory Rate 16 Blood Pressure 141/45 H 117/37 L Pulse Oximetry 98 98 Oxygen Delivery Mechanical Ventilation Fraction of Inspired Oxygen 30 04/24/25 00:00 04/24/25 00:00 04/24/25 00:00 Temperature 99.4 F Pulse Rate 71 Respiratory Rate 16 Blood Pressure 106/37 L Pulse Oximetry 98 98 Oxygen Delivery Mechanical Ventilation Fraction of Inspired Oxygen 30 30 04/24/25 00:00 04/24/25 00:00 04/24/25 00:00 Temperature Pulse Rate 71 71 71 Respiratory Rate 16 16 Blood Pressure 106/37 L Pulse Oximetry Oxygen Delivery Fraction of Inspired Oxygen 04/24/25 00:00 04/24/25 01:00 04/24/25 02:00 Temperature 99.5 F Pulse Rate 70 71 71 Respiratory Rate 16 Blood Pressure 107/40 L 120/41 L Pulse Oximetry 97 Oxygen Delivery Fraction of Inspired Oxygen 04/24/25 02:00 04/24/25 02:00 04/24/25 02:00 Temperature 99.6 F Pulse Rate 71 71 71 Respiratory Rate 16 16 16 Blood Pressure 120/41 L Pulse Oximetry 98 Oxygen Delivery Fraction of Inspired Oxygen 04/24/25 02:00 04/24/25 02:37 04/24/25 02:37 Temperature Pulse Rate 71 71 71 Respiratory Rate 16 Blood Pressure Pulse Oximetry 97 Oxygen Delivery Mechanical Ventilation Fraction of Inspired Oxygen 30 04/24/25 02:42 04/24/25 02:42 04/24/25 02:44 Temperature Pulse Rate 71 71 72 Respiratory Rate 16 16 16 Blood Pressure Pulse Oximetry Oxygen Delivery Fraction of Inspired Oxygen 04/24/25 02:44 04/24/25 02:44 04/24/25 03:00 Temperature 99.7 F H Pulse Rate 72 72 72 Respiratory Rate 16 16 16 Blood Pressure 112/38 L Pulse Oximetry 97 Oxygen Delivery Fraction of Inspired Oxygen 04/24/25 04:00 04/24/25 04:00 04/24/25 04:00 Temperature 99.8 F H Pulse Rate 72 72 72 Respiratory Rate 16 16 Blood Pressure 124/39 L 124/39 L Pulse Oximetry 97 Oxygen Delivery Fraction of Inspired Oxygen 04/24/25 04:00 04/24/25 04:00 04/24/25 04:00 Temperature Pulse Rate 72 Respiratory Rate 16 Blood Pressure Pulse Oximetry 97 Oxygen Delivery Mechanical Ventilation Fraction of Inspired Oxygen 30 30 04/24/25 04:00 04/24/25 04:45 04/24/25 05:00 Temperature 99.9 F H Pulse Rate 71 72 73 Respiratory Rate 17 Blood Pressure 149/42 H 101/36 L Pulse Oximetry 94 Oxygen Delivery Fraction of Inspired Oxygen 04/24/25 05:15 04/24/25 06:00 04/24/25 06:00 Temperature Pulse Rate 74 75 75 Respiratory Rate 16 Blood Pressure 101/43 L Pulse Oximetry 93 Oxygen Delivery Mechanical Ventilation Fraction of Inspired Oxygen 30 04/24/25 06:00 04/24/25 06:00 04/24/25 06:00 Temperature 99.4 F Pulse Rate 75 75 75 Respiratory Rate 16 16 Blood Pressure 101/43 L Pulse Oximetry 93 Oxygen Delivery Fraction of Inspired Oxygen 04/24/25 07:00 04/24/25 07:45 04/24/25 07:48 Temperature 99.3 F Pulse Rate 75 75 73 Respiratory Rate 16 16 Blood Pressure 111/46 L Pulse Oximetry 90 94 Oxygen Delivery Mechanical Ventilation Fraction of Inspired Oxygen 30 04/24/25 08:00 04/24/25 08:00 04/24/25 08:00 Temperature Pulse Rate 75 78 75 Respiratory Rate 16 16 Blood Pressure 112/40 L Pulse Oximetry Oxygen Delivery Fraction of Inspired Oxygen 04/24/25 08:00 04/24/25 08:00 04/24/25 08:00 Temperature Pulse Rate 75 75 Respiratory Rate 16 Blood Pressure Pulse Oximetry 94 Oxygen Delivery Mechanical Ventilation Fraction of Inspired Oxygen 30 30 04/24/25 08:00 04/24/25 09:00 04/24/25 10:00 Temperature 99.3 F 99.3 F Pulse Rate 75 76 76 Respiratory Rate 16 26 H Blood Pressure 100/80 114/37 L Pulse Oximetry 94 93 Oxygen Delivery Fraction of Inspired Oxygen 04/24/25 10:00 04/24/25 10:00 04/24/25 10:00 Temperature Pulse Rate 76 75 75 Respiratory Rate 16 16 Blood Pressure 110/32 L 116/37 L Pulse Oximetry 94 Oxygen Delivery Fraction of Inspired Oxygen 04/24/25 10:00 Temperature Pulse Rate 75 Respiratory Rate 16 Blood Pressure Pulse Oximetry Oxygen Delivery Fraction of Inspired Oxygen Intake/Output Intake/Output: Intake & Output 04/21/25 04/22/25 04/23/25 04/24/25 23:59 23:59 23:59 23:59 Intake Total 620 1073.6 547.3 959.1 Output Total 1450 880 540 100 Balance -830 193.6 7.3 859.1 Meds/Results Medications: Active Medications Generic Name Dose Route Start Last Admin Trade Name Freq PRN Reason Stop Dose Admin Albuterol/Ipratropium 3 ml 04/24/25 07:53 Ipratropium 0.5 Mg/Albuterol Sulfate 2.5 Mg (Base) Ampul.Neb 3 Ml INHALATION Q6HRT PRN Wheezing Apixaban 5 mg 04/23/25 17:00 04/24/25 09:15 Apixaban 5 Mg Tablet PO 5 mg BID JAIME Administration Atorvastatin Calcium 80 mg 04/18/25 21:00 04/23/25 20:26 Atorvastatin 40 Mg Tablet PO 80 mg HS JAIME Administration Clopidogrel Bisulfate 75 mg 04/18/25 09:00 04/24/25 09:15 Clopidogrel Bisulfate 75 Mg Tablet PO 75 mg DAILY JAIME Administration Dextrose 12.5 gm 04/17/25 21:26 04/23/25 09:47 Dextrose 50% 25 Gm/50 Ml Syringe IV PUSH 12.5 gm PRN PRN Administration Hypoglycemia Protocol Docusate Sodium 100 mg 04/24/25 10:40 Docusate Sodium Liq 100 Mg/10 Ml Udc PO Q12HR JAIME Escitalopram Oxalate 2.5 mg 04/22/25 13:55 04/23/25 08:36 Escitalopram Oxalate 2.5 Mg Tablet PO 2.5 mg On Hold: 04/24/25 07:52 DAILY JAIME Administration Glucagon 1 mg 04/17/25 21:26 Glucagon For Inj 1 Mg Vial IM PRN PRN Hypoglycemia Protocol Glucose 15 gm 04/17/25 21:26 Glucose Oral Gel 15 Gm Of Glucse In 37.5 Gm Tube PO PRN PRN Hypoglycemia Protocol Dextrose 1,000 mls @ 100 mls/hr 04/17/25 21:26 Dextrose 5% 1,000 Ml IVPB PRN PRN Hypoglycemia Protocol Fentanyl Citrate 2,500 mcg in 250 mls @ 5 mls/hr 04/22/25 15:15 04/24/25 10:00 Fentanyl 2,500 Mcg/Ns 250 Ml IV CONT 50 mcg/hr .Q50H JAIME 5 mls/hr Protocol Titration 50 MCG/HR Midazolam HCl 100 mg in 100 mls @ 3 mls/hr 04/22/25 15:15 04/24/25 10:00 Versed 100 Mg/Ns 100 Ml IV CONT 3 mg/hr .[id number] JAIME 3 mls/hr Protocol Titration 3 MG/HR Piperacillin Sod/Tazobactam 50 mls @ 100 mls/hr 04/22/25 17:00 04/24/25 05:23 Sod 2.25 gm/ Sodium Chloride IVPB Infused Q6H JAIME Infusion Norepinephrine Bitartrate 8 mg in 250 mls @ 0 mls/hr 04/22/25 17:15 04/24/25 10:00 Levophed 8 Mg/D5w 250 Ml IV CONT 0 mcg/min .Q0M JAIME 0 mls/hr Protocol Titration 0 MCG/MIN Vancomycin HCl 1,500 mg in 500 mls @ 250 mls/hr 04/24/25 06:00 04/24/25 06:23 Vancomycin 1,500 Mg/Ns 500 Ml IVPB 250 mls/hr Q36H JAIME Administration Insulin Aspart 2 - 5 units 04/24/25 09:00 04/24/25 09:15 Insulin Aspart (*Bkc) 100 Units/Ml SUB-Q Not Given Q4HR [facility] Protocol Insulin Glargine 10 units 04/24/25 09:00 04/24/25 09:19 Insulin Glargine (*Bkc) 100 Units/Ml SUB-Q 10 units QAM JAIME Administration Multi-Ingred Cream/Lotion/Oil/Oint 1 applic 04/22/25 21:00 04/24/25 09:15 Mineral Oil/White Petrolatum Ointment EACH EYE 1 applic Q12HR JAIME Administration Pantoprazole Sodium 40 mg 04/23/25 09:00 04/24/25 08:02 Pantoprazole Sodium Iv 40 Mg Vial IV PUSH 40 mg QAM JAIME Administration Sodium Chloride 10 ml 04/22/25 22:00 04/24/25 05:04 Central Line Flush IV PUSH 10 ml Q8HR AJIME Administration Sodium Chloride 20 ml 04/22/25 16:39 Central Line Flush IV PUSH PRN PRN after blood draws Venlafaxine HCl 150 mg 04/18/25 09:00 04/23/25 08:35 Venlafaxine Hcl 75 Mg Tablet PO 150 mg On Hold: 04/24/25 07:52 DAILY JAIME Administration Radiology Results: ITS Impressions Cervical Spine CT 04/17/25 16:46 IMPRESSION: 1. Severe cervical spondylosis with no acute osseous abnormality. 2. Mild pulmonary edema at the apices of lungs. Abdomen X-Ray 04/22/25 16:03 Impression: 1. No acute abnormality. Head CT 04/22/25 16:27 Impression: 1.No acute intracranial abnormality. Chest/Abdomen/Pelvis CT 04/22/25 16:29 IMPRESSION: 1. CHF and superimposed bronchopneumonia. There is underlying chronic lung disease. Follow-up is recommended to assess. 2. No acute intra-abdominal process. 3. Pancreatic lesion suspected. Contrast-enhanced MRI is recommended. Lower Extremity CT 04/22/25 17:02 IMPRESSION: Severe cellulitis. Absence of contrast limits evaluation for abscess however there is no gross loculated fluid collection. There is no air identified suggest necrotizing fasciitis. If there remains clinical concern contrast- enhanced MRI is recommended Chest X-Ray 04/24/25 08:17 Impression: CHF. Findings are slightly progressed compared to the prior study. Labs Labs: Laboratory Results - last 24 hr 04/23/25 04/23/25 04/23/25 10:11 11:44 17:18 WBC RBC Hgb Hct MCV MCH MCHC RDW Plt Count MPV Immature Gran % (Auto) Neut % (Auto) Lymph % (Auto) [place] % (Auto) Eos % (Auto) Baso % (Auto) Lymph # (Auto) [place] # (Auto) Eos # (Auto) Baso # (Auto) Abs Immat Gran (auto) Absolute Neuts (auto) Absolute Nucleated RBC Nucleated RBC % PT INR APTT Puncture Site ABG pH ABG pCO2 ABG pO2 ABG PO2/FiO2 Ratio ABG HCO3 ABG O2 Saturation ABG O2 Content ABG Base Excess A-a Gradient Oxyhemoglobin Carboxyhemoglobin Methemoglobin Reduced Hemoglobin Total Hemoglobin O2 Delivery Device O2 Liters/Min Minute Volume Vent Rate Vent Mode FiO2 Tidal Volume PEEP Peak Inspir Pressure Pressure Support Sodium Potassium Chloride Carbon Dioxide Anion Gap BUN Creatinine Estim Creat Clear Calc Estimated GFR Glucose POC Capillary Glucose 103 130 H 71 Lactic Acid Calcium Phosphorus Magnesium Total Bilirubin AST ALT Alkaline Phosphatase Total Protein Albumin Procalcitonin Nasal MRSA (PCR) 04/23/25 04/23/25 04/24/25 20:31 20:37 00:17 WBC RBC Hgb Hct MCV MCH MCHC RDW Plt Count MPV Immature Gran % (Auto) Neut % (Auto) Lymph % (Auto) [place] % (Auto) Eos % (Auto) Baso % (Auto) Lymph # (Auto) [place] # (Auto) Eos # (Auto) Baso # (Auto) Abs Immat Gran (auto) Absolute Neuts (auto) Absolute Nucleated RBC Nucleated RBC % PT INR APTT Puncture Site ABG pH ABG pCO2 ABG pO2 ABG PO2/FiO2 Ratio ABG HCO3 ABG O2 Saturation ABG O2 Content ABG Base Excess A-a Gradient Oxyhemoglobin Carboxyhemoglobin Methemoglobin Reduced Hemoglobin Total Hemoglobin O2 Delivery Device O2 Liters/Min Minute Volume Vent Rate Vent Mode FiO2 Tidal Volume PEEP Peak Inspir Pressure Pressure Support Sodium Potassium Chloride Carbon Dioxide Anion Gap BUN Creatinine Estim Creat Clear Calc Estimated GFR Glucose POC Capillary Glucose 168 H 135 H Lactic Acid Calcium Phosphorus Magnesium Total Bilirubin AST ALT Alkaline Phosphatase Total Protein Albumin Procalcitonin Nasal MRSA (PCR) Detected A* 04/24/25 04/24/25 04/24/25 05:05 05:08 05:09 WBC 5.2 RBC 3.91 L Hgb 12.3 Hct 38.9 MCV 99.5 MCH 31.5 MCHC 31.6 L RDW 15.0 H Plt Count 148 L MPV 9.9 Immature Gran % (Auto) 0.2 Neut % (Auto) 73.8 H Lymph % (Auto) 10.2 L [place] % (Auto) 10.2 H Eos % (Auto) 4.8 H Baso % (Auto) 0.8 Lymph # (Auto) 0.53 L [place] # (Auto) 0.5 Eos # (Auto) 0.3 Baso # (Auto) 0.0 Abs Immat Gran (auto) 0.01 Absolute Neuts (auto) 3.9 Absolute Nucleated RBC 0.000 Nucleated RBC % 0.0 PT 19.8 H INR 1.7 APTT 41.5 H Puncture Site Right radial ABG pH 7.393 ABG pCO2 49.5 H ABG pO2 69.0 L ABG PO2/FiO2 Ratio 2.30 ABG HCO3 29.5 H ABG O2 Saturation 93.6 L ABG O2 Content 19.6 ABG Base Excess 3.5 A-a Gradient 86.7 Oxyhemoglobin 91.1 Carboxyhemoglobin 1.8 Methemoglobin 0.1 Reduced Hemoglobin 7.0 H Total Hemoglobin 15.3 O2 Delivery Device Ventilator O2 Liters/Min Not Reportable Minute Volume Not Reportable Vent Rate 16 Vent Mode Asv FiO2 30 Tidal Volume 320 PEEP 5 Peak Inspir Pressure Not Reportable Pressure Support Not Reportable Sodium 135 L Potassium 4.0 Chloride 103 Carbon Dioxide 30 Anion Gap 2 L BUN 23 H Creatinine 1.21 H Estim Creat Clear Calc Not Reportable Estimated GFR 42 L Glucose 203 H POC Capillary Glucose Lactic Acid 1.3 Calcium 8.6 Phosphorus 4.0 Magnesium 1.7 Total Bilirubin 0.8 AST 26 ALT 7 Alkaline Phosphatase 79 Total Protein 5.9 L Albumin 3.1 L Procalcitonin 0.1 Nasal MRSA (PCR) 04/24/25 08:52 WBC RBC Hgb Hct MCV MCH MCHC RDW Plt Count MPV Immature Gran % (Auto) Neut % (Auto) Lymph % (Auto) [place] % (Auto) Eos % (Auto) Baso % (Auto) Lymph # (Auto) [place] # (Auto) Eos # (Auto) Baso # (Auto) Abs Immat Gran (auto) Absolute Neuts (auto) Absolute Nucleated RBC Nucleated RBC % PT INR APTT Puncture Site ABG pH ABG pCO2 ABG pO2 ABG PO2/FiO2 Ratio ABG HCO3 ABG O2 Saturation ABG O2 Content ABG Base Excess A-a Gradient Oxyhemoglobin Carboxyhemoglobin Methemoglobin Reduced Hemoglobin Total Hemoglobin O2 Delivery Device O2 Liters/Min Minute Volume Vent Rate Vent Mode FiO2 Tidal Volume PEEP Peak Inspir Pressure Pressure Support Sodium Potassium Chloride Carbon Dioxide Anion Gap BUN Creatinine Estim Creat Clear Calc Estimated GFR Glucose POC Capillary Glucose 191 H Lactic Acid Calcium Phosphorus Magnesium Total Bilirubin AST ALT Alkaline Phosphatase Total Protein Albumin Procalcitonin Nasal MRSA (PCR)
--- NOTE | 2025-04-24 10:51 | PCNFU ---
Nutrition Follow-Up Complete: Inadequate energy intake related to mechanical ventilation in the setting of acute respiratory failure as evidenced by need for full tube feeding: Goal: Meet estimated protein energy needs Patient will continue current goal. Pt current nutrition is Vital HP at 55 ml/hr. Last recorded weight is 87.5 kg, up from 86.5 kg on admit. Bowel Motility: Last reported BM 04/20 Labs Reviewed:Glu 203, Alb 3.1, Na 135, GFR 42, BUN 23, Cr 1.21 Meds Noted:Fentanyl, Versed, Lantus, Colace Skin: WNL Additional Notes: Patient remains on mechanical vent. Levophed is currently off. Tube feedings are being tolerated of Vital HP at 55 ml/hr. Total Nutrition: 1210 kcal/106 gm protein/1011 ml water, meeting 100% kcal needs at 14 kcal/kg and 100% protein need at 1.2-1.4 gm/kg. Agree wtih diet orders. Monitoring tube feeding rate, tolerance, weights, labs, output, meds, plan of care Follow up Wednesday/Wednesday, daily rounds
[2025-04-24] MEDS: INSULIN ASPART (*BKC) 100 UNITS/ML SUB-Q ×2 (13:13→16:55)
[2025-04-24] MEDS: cefTRIAXone 2 GM in SODIUM CHLORIDE 0.9% IV 100 ML 200 ML IVPB (17:55)
[2025-04-24] MEDS: ATORVASTATIN 40 MG TABLET 80 MG PO (20:54)
[2025-04-24] MEDS: DOXYCYCLINE IV 100 MG in SODIUM CHLORIDE 0.9% IV 100 ML IVPB (20:54)
[2025-04-24] MEDS: ACETAMINOPHEN ELIXIR 325 MG/10.15 ML UDC 650 MG PO (23:04)
[2025-04-25] VITALS (39 sets, daily range): BP systolic 100–152; BP diastolic 32–45; PULSE 71–79; RESP 16–29; TEMP 36.7–38.5; O2SAT 92–94
[2025-04-25] MEDS: INSULIN ASPART (*BKC) 100 UNITS/ML SUB-Q ×7 (00:12→23:57)
[2025-04-25 04:42] LABS: Alveolar/Arterial O2 Gradient 79.8 mmHg; Carboxyhemoglobin 1.6 % THb (0-2.0); Fractional Inspired Oxygen 30 %; HCO3 ABG 28.9 mEq/l (22.0-26.0); Methemoglobin ABG 0.3 %THb (0-1.5); Oxygen Content ABG 16.6 %vol (16.0-22.0); Oxygen Saturation ABG 94.0 % (95.0-100.0); PCO2 ABG 51.8 mmHg (35.0-45.0); PO2 ABG 73.2 mmHg (80.0-100.0); PO2 FiO2 Ratio Arterial Blood 2.44 %; Reduced Hemoglobin 5.9 %THb (0-5.0)
[2025-04-25] MEDS: CENTRAL LINE FLUSH 10 ML IV PUSH ×3 (04:59→20:21)
[2025-04-25 05:03] LABS: Arterial Blood Gas Ventilator rate 16 /MIN; Modified Allen's Test Pass; Site Drawn LEFT RADIAL
[2025-04-25 05:04] LABS: Arterial Blood Gas Tidal Volume 320 ml
[2025-04-25 05:23] LABS: Hematocrit 36.7 % (37.0-47.0); Hemoglobin 11.6 g/dL (12.0-15.0); Immature Granulocyte Percent A 0.4 % (0-0.5); Lymphocytes Absolute Auto 0.42 K/mm3 (0.9-3.2); Mean Corpuscular HGB Conc 31.6 g/dl (32-36); Mean Corpuscular Hemoglobin 31.3 pg (26-34); Mean Corpuscular Volume 98.9 fl (80-100); Nucleated Red Blood Cells Absolute Auto 0.000 K/mm3 (0.0-0.012); Nucleated Red Blood Cells Perc 0.0 % (0.0-0.2); Platelet Count Result 139 k/mm3 (150-375); Red Blood Count 3.71 M/mm3 (4.2-5.4); White Blood Count 5.4 K/mm3 (4.5-10.0)
[2025-04-25 05:42] LABS: Alanine Aminotransferase 6 U/L (6-35); Albumin Level 2.9 g/dL (3.5-5.1); Alkaline Phosphatase 71 U/L (38-126); Anion Gap 2 mmol/L (4-12); Aspartate Amino Transferase 22 U/L (14-36); Bilirubin,Total 0.7 mg/dL (0.2-1.3); Blood Urea Nitrogen 37 mg/dL (7-17); Calcium 8.8 mg/dL (8.4-10.2); Carbon Dioxide 30 mmol/L (22-30); Chloride 103 mmol/L (98-107); Estimated Glomerular Filt Rate 37; Glucose 262 mg/dL (65-110); Magnesium 1.9 mg/dL (1.6-2.3); Potassium 4.0 mmol/L (3.4-5.0); Sodium 135 mmol/L (137-145); Total Protein 5.7 g/dL (6.3-8.2)
[2025-04-25] MEDS: FUROSEMIDE INJ 100 MG/10 ML VIAL 80 MG IV PUSH ×2 (08:09→17:00)
[2025-04-25] MEDS: DOXYCYCLINE IV 100 MG in SODIUM CHLORIDE 0.9% IV 100 ML IVPB ×2 (08:43→20:21)
[2025-04-25] MEDS: PANTOPRAZOLE SODIUM IV 40 MG VIAL IV PUSH (08:43)
[2025-04-25] MEDS: CLOPIDOGREL BISULFATE 75 MG TABLET PO (08:43)
[2025-04-25] MEDS: APIXABAN 5 MG TABLET PO ×2 (08:43→17:00)
[2025-04-25] MEDS: MINERAL OIL/WHITE PETROLATUM OINTMENT 1 APPLIC EACH EYE ×2 (08:45→20:24)
[2025-04-25] MEDS: INSULIN GLARGINE (*BKC) 100 UNITS/ML 20 UNITS SUB-Q (08:45)
--- NOTE | 2025-04-25 09:26 | P.PNINT_ITS ---
Assessment and Plan Assessment and Plan (1) Acute hypoxic respiratory failure: Code(s): J96.01 - Acute respiratory failure with hypoxia Status: Acute Assessment and Plan: 04/22/2025, I was called to the rapid response as patient was getting her breathing treatment, went unresponsive and hypoxic upon arrival to the room patient had a pulse, oxygen was being bagged, O2 sats were 96-98%, blood pressures were stable. Patient was unresponsive, skin was mottled from the abdomen to her lower extremities. I decided to intubate her on the medical floor. -04/22: Patient was intubated successfully 04/24 -currently on CMV mode of ventilation, peep of 8, 30% FiO2 -continue bronchodilators -sedated with fentanyl and Versed infusion. Will perform sedation X-ray shows persistent CHF Continue Lasix IV for now diuresis difficult with severe take stenosis Broad-spectrum Antibiotics as below for pneumonia 04/22: repeat CT brain: no acute intracranial abnormality 04/22: CT chest abdomen and pelvis IMPRESSION: 1. CHF and superimposed bronchopneumonia. There is underlying chronic lung disease. Follow-up is recommended to assess. 2. No acute intra-abdominal process. 3. Pancreatic lesion suspected. Contrast-enhanced MRI is recommended. (2) Cellulitis: Code(s): L03.90 - Cellulitis, unspecified Status: Acute Assessment and Plan: Right lower extremity cellulitis with ruptured blister and purulent drainage 04/17: Blood cultures negative x2 04/20: Right lower extremity wound culture shows g negative bacilli Patient will ceftriaxone, and vancomycin (04/18). DC ceftriaxone -will continue vancomycin (04/18) and Zosyn (04/22) - 04/23: Infectious disease consulted, discussed with ID will continue vancomycin and Zosyn 04/24 antibiotics changed to doxycycline and ceftriaxone by Infectious Disease 04/22: CT right lower extremity: Severe cellulitis. Absence of contrast limits evaluation for abscess however there is no gross loculated fluid collection. There is no air identified suggest necrotizing fasciitis. If there remains clinical concern contrast-enhanced MRI is recommended (3) Shock: Code(s): R57.9 - Shock, unspecified Status: Acute Assessment and Plan: 04/23: patient was hypotensive on the evening of 04/22, started on Levophed, which was later stopped. 04/23: Patient was hypotensive again, today and Levophed was started to maintain SBP > 100 mmHg or MAP > 65 mmHg - 04/20/2025 blood cultures: Negative x2 - 04/20/2025 right lower extremity wound culture growing Klebsiella and MRSA - continue antibiotics per Infectious Disease as above -off Levophed. Continue diuretics procalcitonin level low at 0.1 Echocardiogram shows severe aortic stenosis and regurgitation along with mild dilation of left ventricle. Left atrium is severely dilated (4) Fall: Code(s): W19.XXXA - Unspecified fall, initial encounter Status: Acute Assessment and Plan: Patient presented on 04/17/2025 after having a fall, she hit her face and head but did not lose any consciousness. She is on Eliquis and Plavix at home -04/17: CT brain on admission did not show any acute intracranial abnormality, remote right cerebellar lacunar infarct -04/17: CT spine: Is this showed severe cervical spondylosis with no acute osseous abnormality, mild pulmonary edema at the apices of the lung (5) Atrial fibrillation: Qualifiers: Atrial fibrillation type: unspecified chronic Qualified Code(s): I48.20 - Chronic atrial fibrillation, unspecified Code(s): I48.91 - Unspecified atrial fibrillation Status: Chronic Assessment and Plan: Patient has a history of atrial fibrillation, has a leadless pacemaker as seen on the chest x-ray -patient on apixaban and Plavix at home which was restarted at the hospital on 04/18/2025 -04/22: CT brain with no acute intracranial abnormality Continue apixaban and clopidogrel (6) Acute exacerbation of CHF (congestive heart failure): Code(s): I50.9 - Heart failure, unspecified Status: Acute Assessment and Plan: Patient has a history of congestive heart failure, on Lasix, spironolactone, Entresto, will continue to hold for now given patient does get intubated, with adequate blood pressures Continue diuretics (7) HLD (hyperlipidemia): Code(s): E78.5 - Hyperlipidemia, unspecified Status: Acute Assessment and Plan: Continue atorvastatin (8) Hypertension: Qualifiers: Hypertension type: primary hypertension Qualified Code(s): I10 - Essential (primary) hypertension Code(s): I10 - Essential (primary) hypertension Status: Chronic Assessment and Plan: Hold all antihypertensives as patient is intubated on positive pressure ventilation and sedation, hypotensive on Levophed (9) T2DM (type 2 diabetes mellitus): Qualifiers: Diabetes mellitus complication status: without complication Diabetes mellitus intermodal dispatcher insulin use: with care home use Qualified Code(s): E11.9 - Type 2 diabetes mellitus without complications; Z79.4 - intermediate designer (current) use of insulin Code(s): E11.9 - Type 2 diabetes mellitus without complications Status: Chronic Assessment and Plan: Continue Accu-Cheks and sliding scale insulin Continue Lantus Plan DVT prophylaxis: Patient on Eliquis and Plavix, will continue to hold for now Stress ulcer prophylaxis: Protonix IV Nutrition: Continue tube feeds Code Status: DNR Had extensive discussion with patient's daughter at bedside yesterday. I went over with patient's current status including multiorgan failure. I explained her that her prognosis is guarded. We also discussed goals of care including option of palliative care. 04/25 spoke to daughter and other family members at bedside today again. They are actively discussing about palliative care and will likely proceed tomorrow once other family members are here and they had discussion among themselves. Critical Care Time Spent: 30 minutes Due to a high probability of clinically significant, life threatening deterioration, the patient required my highest level of preparedness to intervene emergently and I personally spent this critical care time directly and personally managing the patient. This critical care time included obtaining a history; examining the patient; pulse oximetry; ordering and review of studies; arranging urgent treatment with development of a management plan; evaluation of patient's response to treatment; frequent reassessment; and discussions with other providers. It was exclusive of separately billable procedures and treating other patients and teaching time. Please see Assessment and Plan section and the rest of the note for further information on patient assessment and treatment This dictation may have been done utilizing a voice recognition system. Attempts have been made to correct errors. However, there may be uncorrected grammatical, spelling, and recognitions errors present. Subjective Date/time seen: 04/25/25 Overnight events reviewed. Afebrile Continues to be on mechanical ventilation 30% FiO2 Tolerating tube feed Continues to be sedated with fentanyl and Versed Urine output on the lower side. Other Vitals acceptable Review of Systems Review of Systems: ROS unobtainable: Yes unobtainable due to endotracheal tube, unobtainable due to medical condition and unobtainable due to mental status Exam Narrative: General: Intubated, sedated no acute distress HEENT:? Pupils equal and reactive, sclera is clear Neck:? Supple Respiratory:? Coarse breath sounds bilaterally, no wheezing, adequate air entry Cardiac:? Paced rhythm, rate controlled, loud systolic murmur 3/6 present Abdomen:? Soft, nontender, nondistended, hypoactive bowel sounds, obese Extremities:? Right lower leg erythema, pitting edema, tenderness, purulent drainage from rupture of blister. No crepitus Neuro:? Intubated, sedated, does not open her eyes or follow simple commands Skin:? Multiple bruising areas on the upper and lower extremities, yeast infection in the intertriginous area Psych:? Unable to assess at this time Objective Data Vital Signs Vital Signs: Vital Signs - 24 hr 04/24/25 10:00 04/24/25 10:00 04/24/25 10:00 Temperature Pulse Rate 76 76 75 Respiratory Rate 16 Blood Pressure 110/32 L 116/37 L Pulse Oximetry 94 Oxygen Delivery Fraction of Inspired Oxygen 04/24/25 10:00 04/24/25 10:00 04/24/25 10:49 Temperature Pulse Rate 75 75 73 Respiratory Rate 16 16 Blood Pressure Pulse Oximetry 94 Oxygen Delivery Mechanical Ventilation Fraction of Inspired Oxygen 30 04/24/25 11:00 04/24/25 12:00 04/24/25 12:00 Temperature Pulse Rate 77 77 77 Respiratory Rate 16 16 Blood Pressure 118/36 L Pulse Oximetry 94 94 Oxygen Delivery Mechanical Ventilation Fraction of Inspired Oxygen 30 04/24/25 12:00 04/24/25 12:00 04/24/25 12:00 Temperature 37.4 C Pulse Rate 76 73 Respiratory Rate 16 16 Blood Pressure 123/33 L Pulse Oximetry 95 Oxygen Delivery Fraction of Inspired Oxygen 30 04/24/25 12:00 04/24/25 13:00 04/24/25 14:00 Temperature 37.4 C Pulse Rate 73 73 73 Respiratory Rate 16 17 16 Blood Pressure 113/41 L Pulse Oximetry 95 Oxygen Delivery Fraction of Inspired Oxygen 04/24/25 14:00 04/24/25 14:00 04/24/25 14:00 Temperature 37.4 C Pulse Rate 73 72 72 Respiratory Rate 16 16 Blood Pressure 113/35 L Pulse Oximetry 95 95 Oxygen Delivery Mechanical Ventilation Fraction of Inspired Oxygen 30 04/24/25 14:00 04/24/25 15:00 04/24/25 16:00 Temperature 37.4 C Pulse Rate 75 73 74 Respiratory Rate 18 18 Blood Pressure 122/40 L Pulse Oximetry 94 95 Oxygen Delivery Mechanical Ventilation Fraction of Inspired Oxygen 30 04/24/25 16:00 04/24/25 16:00 04/24/25 16:00 Temperature 37.5 C Pulse Rate 73 74 Respiratory Rate 16 Blood Pressure 119/38 L Pulse Oximetry 95 Oxygen Delivery Fraction of Inspired Oxygen 30 04/24/25 16:00 04/24/25 16:00 04/24/25 17:00 Temperature 37.7 C H Pulse Rate 76 76 75 Respiratory Rate 16 16 16 Blood Pressure 119/43 L Pulse Oximetry 94 Oxygen Delivery Fraction of Inspired Oxygen 04/24/25 17:06 04/24/25 18:00 04/24/25 18:00 Temperature 37.7 C H Pulse Rate 73 73 76 Respiratory Rate 18 Blood Pressure 112/37 L Pulse Oximetry 94 95 Oxygen Delivery Mechanical Ventilation Fraction of Inspired Oxygen 30 04/24/25 19:00 04/24/25 20:00 04/24/25 20:00 Temperature 38.0 C H Pulse Rate 75 75 75 Respiratory Rate 22 H 24 H 24 H Blood Pressure 127/41 L Pulse Oximetry 95 Oxygen Delivery Fraction of Inspired Oxygen 04/24/25 20:00 04/24/25 20:00 04/24/25 20:00 Temperature 38.7 C H Pulse Rate 74 76 Respiratory Rate 24 H Blood Pressure 129/58 L Pulse Oximetry 94 Oxygen Delivery Mechanical Ventilation Fraction of Inspired Oxygen 30 04/24/25 20:00 04/24/25 20:15 04/24/25 21:00 Temperature 39.0 C H Pulse Rate 75 75 Respiratory Rate 28 H Blood Pressure 144/53 H Pulse Oximetry 93 93 Oxygen Delivery Mechanical Ventilation Fraction of Inspired Oxygen 30 30 04/24/25 22:00 04/24/25 22:00 04/24/25 22:00 Temperature 39.1 C H Pulse Rate 76 76 76 Respiratory Rate 20 20 Blood Pressure 152/50 H Pulse Oximetry 92 Oxygen Delivery Fraction of Inspired Oxygen 04/24/25 22:00 04/24/25 23:00 04/24/25 23:00 Temperature 38.8 C H Pulse Rate 76 77 76 Respiratory Rate 20 34 H Blood Pressure 141/60 H Pulse Oximetry 92 92 Oxygen Delivery Mechanical Ventilation Fraction of Inspired Oxygen 30 04/24/25 23:04 04/25/25 00:00 04/25/25 00:00 Temperature 38.8 C H Pulse Rate 79 79 Respiratory Rate 20 20 Blood Pressure Pulse Oximetry Oxygen Delivery Fraction of Inspired Oxygen 04/25/25 00:00 04/25/25 00:00 04/25/25 00:00 Temperature Pulse Rate 76 Respiratory Rate Blood Pressure Pulse Oximetry Oxygen Delivery Mechanical Ventilation Fraction of Inspired Oxygen 30 30 04/25/25 00:00 04/25/25 00:04 04/25/25 01:00 Temperature 38.5 C H 38.4 C H 38.0 C H Pulse Rate 79 77 Respiratory Rate 24 H 19 Blood Pressure 114/37 L 107/35 L Pulse Oximetry 93 93 Oxygen Delivery Fraction of Inspired Oxygen 04/25/25 01:22 04/25/25 02:00 04/25/25 02:00 Temperature 37.7 C H Pulse Rate 77 75 75 Respiratory Rate 23 H Blood Pressure 105/36 L Pulse Oximetry 93 93 Oxygen Delivery Mechanical Ventilation Fraction of Inspired Oxygen 30 04/25/25 02:00 04/25/25 02:00 04/25/25 03:00 Temperature 37.2 C Pulse Rate 75 75 74 Respiratory Rate 21 H 21 H 23 H Blood Pressure 107/36 L Pulse Oximetry 93 Oxygen Delivery Fraction of Inspired Oxygen 04/25/25 04:00 04/25/25 04:00 04/25/25 04:00 Temperature 36.9 C Pulse Rate 73 73 73 Respiratory Rate 16 16 16 Blood Pressure 108/38 L Pulse Oximetry 93 Oxygen Delivery Fraction of Inspired Oxygen 04/25/25 04:00 04/25/25 04:00 04/25/25 04:00 Temperature Pulse Rate 73 Respiratory Rate Blood Pressure Pulse Oximetry Oxygen Delivery Mechanical Ventilation Fraction of Inspired Oxygen 30 30 04/25/25 05:00 04/25/25 05:04 04/25/25 05:37 Temperature 36.7 C Pulse Rate 72 72 72 Respiratory Rate 16 16 Blood Pressure 100/32 L Pulse Oximetry 94 94 Oxygen Delivery Mechanical Ventilation Fraction of Inspired Oxygen 30 04/25/25 05:38 04/25/25 06:00 04/25/25 06:00 Temperature 36.7 C Pulse Rate 72 71 71 Respiratory Rate 16 16 Blood Pressure 113/45 L Pulse Oximetry 93 Oxygen Delivery Fraction of Inspired Oxygen 04/25/25 06:04 04/25/25 06:05 04/25/25 07:00 Temperature 37.1 C Pulse Rate 71 71 72 Respiratory Rate 16 16 17 Blood Pressure 141/33 H Pulse Oximetry 93 Oxygen Delivery Fraction of Inspired Oxygen 04/25/25 08:00 04/25/25 08:00 04/25/25 08:00 Temperature Pulse Rate 71 71 71 Respiratory Rate 22 H 22 H 22 H Blood Pressure Pulse Oximetry 92 Oxygen Delivery Mechanical Ventilation Fraction of Inspired Oxygen 30 04/25/25 08:00 04/25/25 08:00 04/25/25 08:00 Temperature 37.2 C Pulse Rate 71 72 Respiratory Rate 19 Blood Pressure 128/36 L Pulse Oximetry 92 Oxygen Delivery Fraction of Inspired Oxygen 30 04/25/25 09:00 Temperature 37.3 C Pulse Rate 72 Respiratory Rate 19 Blood Pressure 139/41 L Pulse Oximetry 92 Oxygen Delivery Fraction of Inspired Oxygen Intake/Output Intake/Output: Intake & Output 04/22/25 04/23/25 04/24/25 04/25/25 23:59 23:59 23:59 23:59 Intake Total 1073.6 547.3 3165.1 758.6 Output Total 880 540 550 350 Balance 193.6 7.3 2615.1 408.6 Meds/Results Medications: Active Medications Generic Name Dose Route Start Last Admin Trade Name Freq PRN Reason Stop Dose Admin Acetaminophen 650 mg 04/24/25 22:27 04/24/25 23:04 Acetaminophen Elixir 325 Mg/10.15 Ml Udc PO 650 mg Q4H PRN Administration Mild Pain (1-3) or Fever Albuterol/Ipratropium 3 ml 04/24/25 07:53 Ipratropium 0.5 Mg/Albuterol Sulfate 2.5 Mg (Base) Ampul.Neb 3 Ml INHALATION Q6HRT PRN Wheezing Apixaban 5 mg 04/23/25 17:00 04/25/25 08:43 Apixaban 5 Mg Tablet PO 5 mg BID JAIME Administration Atorvastatin Calcium 80 mg 04/18/25 21:00 04/24/25 20:54 Atorvastatin 40 Mg Tablet PO 80 mg HS JAIME Administration Clopidogrel Bisulfate 75 mg 04/18/25 09:00 04/25/25 08:43 Clopidogrel Bisulfate 75 Mg Tablet PO 75 mg DAILY JAIME Administration Dextrose 12.5 gm 04/17/25 21:26 04/23/25 09:47 Dextrose 50% 25 Gm/50 Ml Syringe IV PUSH 12.5 gm PRN PRN Administration Hypoglycemia Protocol Docusate Sodium 100 mg 04/24/25 10:40 04/25/25 08:43 Docusate Sodium Liq 100 Mg/10 Ml Udc PO 100 mg Q12HR JAIME Administration Escitalopram Oxalate 2.5 mg 04/22/25 13:55 04/23/25 08:36 Escitalopram Oxalate 2.5 Mg Tablet PO 2.5 mg On Hold: 04/24/25 07:52 DAILY JAIME Administration Furosemide 80 mg 04/25/25 09:00 04/25/25 08:09 Furosemide Inj 100 Mg/10 Ml Vial IV PUSH 80 mg BID JAIME Administration Glucagon 1 mg 04/17/25 21:26 Glucagon For Inj 1 Mg Vial IM PRN PRN Hypoglycemia Protocol Glucose 15 gm 04/17/25 21:26 Glucose Oral Gel 15 Gm Of Glucse In 37.5 Gm Tube PO PRN PRN Hypoglycemia Protocol Dextrose 1,000 mls @ 100 mls/hr 04/17/25 21:26 Dextrose 5% 1,000 Ml IVPB PRN PRN Hypoglycemia Protocol Fentanyl Citrate 2,500 mcg in 250 mls @ 0 mls/hr 04/22/25 15:15 04/25/25 08:00 Fentanyl 2,500 Mcg/Ns 250 Ml IV CONT 0 mcg/hr .Q0M JAIME 0 mls/hr Protocol Titration Midazolam HCl 100 mg in 100 mls @ 0 mls/hr 04/22/25 15:15 04/25/25 08:00 Versed 100 Mg/Ns 100 Ml IV CONT 0 mg/hr .Q0M JAIME 0 mls/hr Protocol Titration Ceftriaxone Sodium 2 gm/ 100 mls @ 200 mls/hr 04/24/25 18:00 04/24/25 19:19 Sodium Chloride IVPB Infused Q24H JAIME Infusion Doxycycline Hyclate 100 mg/ 100 mls @ 100 mls/hr 04/24/25 21:00 04/25/25 08:43 Sodium Chloride IVPB 100 mls/hr Q12H JIAME Administration Insulin Aspart 3 - 6 units 04/25/25 09:00 04/25/25 08:44 Insulin Aspart (*Bkc) 100 Units/Ml SUB-Q 3 units Q4HR JAIME Administration Protocol Insulin Glargine 20 units 04/25/25 09:00 04/25/25 08:45 Insulin Glargine (*Bkc) 100 Units/Ml SUB-Q 20 units QAM JAIME Administration Multi-Ingred Cream/Lotion/Oil/Oint 1 applic 04/22/25 21:00 04/25/25 08:45 Mineral Oil/White Petrolatum Ointment EACH EYE 1 applic Q12HR JAIME Administration Pantoprazole Sodium 40 mg 04/23/25 09:00 04/25/25 08:43 Pantoprazole Sodium Iv 40 Mg Vial IV PUSH 40 mg QAM JAIME Administration Sodium Chloride 10 ml 04/22/25 22:00 04/25/25 04:59 Central Line Flush IV PUSH 10 ml Q8HR JAIME Administration Sodium Chloride 20 ml 04/22/25 16:39 Central Line Flush IV PUSH PRN PRN after blood draws Venlafaxine HCl 150 mg 04/18/25 09:00 04/23/25 08:35 Venlafaxine Hcl 75 Mg Tablet PO 150 mg On Hold: 04/24/25 07:52 DAILY JAIME Administration Radiology Results: ITS Impressions Cervical Spine CT 04/17/25 16:46 IMPRESSION: 1. Severe cervical spondylosis with no acute osseous abnormality. 2. Mild pulmonary edema at the apices of lungs. Abdomen X-Ray 04/22/25 16:03 Impression: 1. No acute abnormality. Head CT 04/22/25 16:27 Impression: 1.No acute intracranial abnormality. Chest/Abdomen/Pelvis CT 04/22/25 16:29 IMPRESSION: 1. CHF and superimposed bronchopneumonia. There is underlying chronic lung disease. Follow-up is recommended to assess. 2. No acute intra-abdominal process. 3. Pancreatic lesion suspected. Contrast-enhanced MRI is recommended. Lower Extremity CT 04/22/25 17:02 IMPRESSION: Severe cellulitis. Absence of contrast limits evaluation for abscess however there is no gross loculated fluid collection. There is no air identified suggest necrotizing fasciitis. If there remains clinical concern contrast- enhanced MRI is recommended Chest X-Ray 04/25/25 08:31 IMPRESSION: 1. Probable worsening bilateral effusions right worse than left with pulmonary edema or consolidations also likely present. Labs Labs: Laboratory Results - last 24 hr 12/09/25 12/09/25 12/09/25 05:08 11:04 15:45 WBC RBC Hgb Hct MCV MCH MCHC RDW Plt Count MPV Immature Gran % (Auto) Neut % (Auto) Lymph % (Auto) [place] % (Auto) Eos % (Auto) Baso % (Auto) Lymph # (Auto) [place] # (Auto) Eos # (Auto) Baso # (Auto) Abs Immat Gran (auto) Absolute Neuts (auto) Absolute Nucleated RBC Nucleated RBC % Puncture Site ABG pH ABG pCO2 ABG pO2 ABG PO2/FiO2 Ratio ABG HCO3 ABG O2 Saturation ABG O2 Content ABG Base Excess A-a Gradient Oxyhemoglobin Carboxyhemoglobin Methemoglobin Reduced Hemoglobin Total Hemoglobin O2 Delivery Device O2 Liters/Min Minute Volume Vent Rate Vent Mode FiO2 Tidal Volume PEEP Peak Inspir Pressure Pressure Support Sodium Potassium Chloride Carbon Dioxide Anion Gap BUN Creatinine Estim Creat Clear Calc Estimated GFR Glucose POC Capillary Glucose 232 H 206 H Calcium Phosphorus Magnesium Total Bilirubin AST ALT Alkaline Phosphatase Total Protein Albumin Procalcitonin 0.1 04/24/25 04/25/25 04/25/25 20:52 00:05 04:26 WBC RBC Hgb Hct MCV MCH MCHC RDW Plt Count MPV Immature Gran % (Auto) Neut % (Auto) Lymph % (Auto) [place] % (Auto) Eos % (Auto) Baso % (Auto) Lymph # (Auto) [place] # (Auto) Eos # (Auto) Baso # (Auto) Abs Immat Gran (auto) Absolute Neuts (auto) Absolute Nucleated RBC Nucleated RBC % Puncture Site Left radial ABG pH 7.364 ABG pCO2 51.8 H ABG pO2 73.2 L ABG PO2/FiO2 Ratio 2.44 ABG HCO3 28.9 H ABG O2 Saturation 94.0 L ABG O2 Content 16.6 ABG Base Excess 2.6 A-a Gradient 79.8 Oxyhemoglobin 92.2 Carboxyhemoglobin 1.6 Methemoglobin 0.3 Reduced Hemoglobin 5.9 H Total Hemoglobin 12.8 O2 Delivery Device Ventilator O2 Liters/Min Not Reportable Minute Volume Not Reportable Vent Rate 16 Vent Mode Cmv FiO2 30 Tidal Volume 320 PEEP 8 Peak Inspir Pressure Not Reportable Pressure Support Not Reportable Sodium Potassium Chloride Carbon Dioxide Anion Gap BUN Creatinine Estim Creat Clear Calc Estimated GFR Glucose POC Capillary Glucose 155 H 206 H Calcium Phosphorus Magnesium Total Bilirubin AST ALT Alkaline Phosphatase Total Protein Albumin Procalcitonin 04/25/25 04/25/25 04/25/25 05:11 05:13 08:22 WBC 5.4 RBC 3.71 L Hgb 11.6 L Hct 36.7 L MCV 98.9 MCH 31.3 MCHC 31.6 L RDW 14.9 H Plt Count 139 L MPV 9.7 Immature Gran % (Auto) 0.4 Neut % (Auto) 74.5 H Lymph % (Auto) 7.8 L [place] % (Auto) 11.9 H Eos % (Auto) 4.8 H Baso % (Auto) 0.6 Lymph # (Auto) 0.42 L [place] # (Auto) 0.6 Eos # (Auto) 0.3 Baso # (Auto) 0.0 Abs Immat Gran (auto) 0.02 Absolute Neuts (auto) 4.0 Absolute Nucleated RBC 0.000 Nucleated RBC % 0.0 Puncture Site ABG pH ABG pCO2 ABG pO2 ABG PO2/FiO2 Ratio ABG HCO3 ABG O2 Saturation ABG O2 Content ABG Base Excess A-a Gradient Oxyhemoglobin Carboxyhemoglobin Methemoglobin Reduced Hemoglobin Total Hemoglobin O2 Delivery Device O2 Liters/Min Minute Volume Vent Rate Vent Mode FiO2 Tidal Volume PEEP Peak Inspir Pressure Pressure Support Sodium 135 L Potassium 4.0 Chloride 103 Carbon Dioxide 30 Anion Gap 2 L BUN 37 H D Creatinine 1.37 H Estim Creat Clear Calc Not Reportable Estimated GFR 37 L Glucose 262 H POC Capillary Glucose 286 H 202 H Calcium 8.8 Phosphorus 4.2 Magnesium 1.9 Total Bilirubin 0.7 AST 22 ALT 6 Alkaline Phosphatase 71 Total Protein 5.7 L Albumin 2.9 L Procalcitonin
--- NOTE | 2025-04-25 11:15 | PCFNICU ---
ICU Rounding Note: Pt current nutrition is Vital HP at 55 ml/hr. Last recorded weight is 92.9 kg, up from 86.5 kg on admit. Bowel Motility: Last reported BM 04/20 Labs Reviewed:Glu 262, Na 135, Alb 2.9, Hct 36.7, Hgb 11.6 Meds Noted: Lasix, Fentanyl, Versed, Colace Skin: WNL Additional Notes: Patient remains on mechanical vent. Tube feedings are being tolerated of Vital HP at 55 ml/hr. Total Nutrition: 1210 kcal/106 gm protein/1011 ml water. Flush 30 ml q 4 hours. Agree with diet orders. Following daily in ICU rounds. Monitoring tube feeding rate, tolerance, weights, labs, output, meds, plan of care Follow up Wednesday/Wednesday.
[2025-04-25] MEDS: cefTRIAXone 2 GM in SODIUM CHLORIDE 0.9% IV 100 ML IVPB (17:40)
[2025-04-25] MEDS: ACETAMINOPHEN ELIXIR 325 MG/10.15 ML UDC 650 MG PO (17:41)
[2025-04-25] MEDS: ATORVASTATIN 40 MG TABLET 80 MG PO (20:21)
[2025-04-26] VITALS (32 sets, daily range): BP systolic 116–195; BP diastolic 35–100; PULSE 71–82; RESP 16–35; TEMP 37.7–37.9; O2SAT 68–99
[2025-04-26] MEDS: INSULIN ASPART (*BKC) 100 UNITS/ML SUB-Q ×2 (04:49→13:38)
[2025-04-26] MEDS: CENTRAL LINE FLUSH 10 ML IV PUSH ×2 (04:50→13:38)
[2025-04-26 05:06] LABS: Hematocrit 38.1 % (37.0-47.0); Hemoglobin 12.2 g/dL (12.0-15.0); Immature Granulocyte Percent A 0.7 % (0-0.5); Lymphocytes Absolute Auto 0.57 K/mm3 (0.9-3.2); Mean Corpuscular HGB Conc 32.0 g/dl (32-36); Mean Corpuscular Hemoglobin 31.1 pg (26-34); Mean Corpuscular Volume 97.2 fl (80-100); Nucleated Red Blood Cells Absolute Auto 0.000 K/mm3 (0.0-0.012); Nucleated Red Blood Cells Perc 0.0 % (0.0-0.2); Platelet Count Result 174 k/mm3 (150-375); Red Blood Count 3.92 M/mm3 (4.2-5.4); White Blood Count 5.9 K/mm3 (4.5-10.0)
[2025-04-26 05:15] LABS: Alveolar/Arterial O2 Gradient 83.6 mmHg; Fractional Inspired Oxygen 30 %; HCO3 ABG 26.1 mEq/l (22.0-26.0); Oxygen Content ABG 17.6 %vol (16.0-22.0); Oxygen Saturation ABG 97.1 % (95.0-100.0); PCO2 ABG 36.8 mmHg (35.0-45.0); PO2 ABG 87.1 mmHg (80.0-100.0); PO2 FiO2 Ratio Arterial Blood 2.90 %
[2025-04-26 05:17] LABS: Modified Allen's Test Pass; Site Drawn RIGHT RADIAL
[2025-04-26 05:18] LABS: Arterial Blood Gas Tidal Volume 320 ml; Arterial Blood Gas Ventilator rate 16 /MIN
[2025-04-26 05:47] LABS: Alanine Aminotransferase 6 U/L (6-35); Albumin Level 3.1 g/dL (3.5-5.1); Alkaline Phosphatase 81 U/L (38-126); Anion Gap 6 mmol/L (4-12); Aspartate Amino Transferase 26 U/L (14-36); Bilirubin,Total 0.6 mg/dL (0.2-1.3); Blood Urea Nitrogen 51 mg/dL (7-17); Calcium 9.3 mg/dL (8.4-10.2); Carbon Dioxide 29 mmol/L (22-30); Chloride 101 mmol/L (98-107); Estimated Glomerular Filt Rate 41; Glucose 202 mg/dL (65-110); Magnesium 1.7 mg/dL (1.6-2.3); Potassium 4.1 mmol/L (3.4-5.0); Sodium 136 mmol/L (137-145); Total Protein 6.3 g/dL (6.3-8.2)
[2025-04-26] MEDS: FUROSEMIDE INJ 100 MG/10 ML VIAL 80 MG IV PUSH ×2 (08:42→17:13)
[2025-04-26] MEDS: DOXYCYCLINE IV 100 MG in SODIUM CHLORIDE 0.9% IV 100 ML IVPB (08:42)
[2025-04-26] MEDS: CLOPIDOGREL BISULFATE 75 MG TABLET PO (08:43)
[2025-04-26] MEDS: APIXABAN 5 MG TABLET PO ×2 (08:43→17:14)
[2025-04-26] MEDS: PANTOPRAZOLE SODIUM IV 40 MG VIAL IV PUSH (08:43)
[2025-04-26] MEDS: INSULIN GLARGINE (*BKC) 100 UNITS/ML 25 UNITS SUB-Q (08:52)
[2025-04-26] MEDS: MINERAL OIL/WHITE PETROLATUM OINTMENT 1 APPLIC EACH EYE (08:53)
--- NOTE | 2025-04-26 09:54 | P.PNINT_ITS ---
Assessment and Plan Assessment and Plan (1) Acute hypoxic respiratory failure: Code(s): J96.01 - Acute respiratory failure with hypoxia Status: Acute Assessment and Plan: 04/22/2025, I was called to the rapid response as patient was getting her breathing treatment, went unresponsive and hypoxic upon arrival to the room patient had a pulse, oxygen was being bagged, O2 sats were 96-98%, blood pressures were stable. Patient was unresponsive, skin was mottled from the abdomen to her lower extremities. I decided to intubate her on the medical floor. -04/22: Patient was intubated successfully 04/24 -currently on CMV mode of ventilation, peep of 8, 30% FiO2 -continue bronchodilators -on sedation holiday X-ray shows persistent CHF Continue Lasix IV for now diuresis difficult with severe aortic stenosis Broad-spectrum Antibiotics as below for pneumonia and cellulitis 04/22: repeat CT brain: no acute intracranial abnormality 04/22: CT chest abdomen and pelvis IMPRESSION: 1. CHF and superimposed bronchopneumonia. There is underlying chronic lung disease. Follow-up is recommended to assess. 2. No acute intra-abdominal process. 3. Pancreatic lesion suspected. Contrast-enhanced MRI is recommended. (2) Cellulitis: Code(s): L03.90 - Cellulitis, unspecified Status: Acute Assessment and Plan: Right lower extremity cellulitis with ruptured blister and purulent drainage 04/17: Blood cultures negative x2 04/20: Right lower extremity wound culture shows MRSA Klebsiella and Serratia i Patient was on ceftriaxone, and vancomycin (04/18). DC ceftriaxone -will continue vancomycin (04/18) and Zosyn (04/22) - 04/23: Infectious disease consulted, discussed with ID will continue vancomycin and Zosyn 04/24 antibiotics changed to doxycycline and ceftriaxone by Infectious Disease 04/26 -in light of fevers and MRSA I will restart vancomycin and DC doxycycline. Will discuss with Infectious Disease 04/22: CT right lower extremity: Severe cellulitis. Absence of contrast limits evaluation for abscess however there is no gross loculated fluid collection. There is no air identified suggest necrotizing fasciitis. If there remains clinical concern contrast-enhanced MRI is recommended (3) Shock: Code(s): R57.9 - Shock, unspecified Status: Acute Assessment and Plan: 04/23: patient was hypotensive on the evening of 04/22, started on Levophed, which was later stopped. 04/23: Patient was hypotensive again, today and Levophed was started to maintain SBP > 100 mmHg or MAP > 65 mmHg - 04/20/2025 blood cultures: Negative x2 - 04/20/2025 right lower extremity wound culture growing Klebsiella and MRSA - continue antibiotics per Infectious Disease as above -off Levophed. Continue diuretics procalcitonin level low at 0.1 Echocardiogram shows severe aortic stenosis and regurgitation along with mild dilation of left ventricle. Left atrium is severely dilated (4) Fall: Code(s): W19.XXXA - Unspecified fall, initial encounter Status: Acute Assessment and Plan: Patient presented on 04/17/2025 after having a fall, she hit her face and head but did not lose any consciousness. She is on Eliquis and Plavix at home -04/17: CT brain on admission did not show any acute intracranial abnormality, remote right cerebellar lacunar infarct -04/17: CT spine: Is this showed severe cervical spondylosis with no acute osseous abnormality, mild pulmonary edema at the apices of the lung (5) Atrial fibrillation: Qualifiers: Atrial fibrillation type: unspecified chronic Qualified Code(s): I48.20 - Chronic atrial fibrillation, unspecified Code(s): I48.91 - Unspecified atrial fibrillation Status: Chronic Assessment and Plan: Patient has a history of atrial fibrillation, has a leadless pacemaker as seen on the chest x-ray -patient on apixaban and Plavix at home which was restarted at the hospital on 04/18/2025 -04/22: CT brain with no acute intracranial abnormality Continue apixaban and clopidogrel (6) Acute exacerbation of CHF (congestive heart failure): Code(s): I50.9 - Heart failure, unspecified Status: Acute Assessment and Plan: Patient has a history of congestive heart failure, on Lasix, spironolactone, Entresto, will continue to hold for now given patient does get intubated, with adequate blood pressures Continue diuretics (7) HLD (hyperlipidemia): Code(s): E78.5 - Hyperlipidemia, unspecified Status: Acute Assessment and Plan: Continue atorvastatin (8) Hypertension: Qualifiers: Hypertension type: primary hypertension Qualified Code(s): I10 - Essential (primary) hypertension Code(s): I10 - Essential (primary) hypertension Status: Chronic Assessment and Plan: Hold all antihypertensives as patient is intubated on positive pressure ventilation and sedation, hypotensive on Levophed (9) T2DM (type 2 diabetes mellitus): Qualifiers: Diabetes mellitus intermediate insulin use: with automatic lathe operator use Diabetes mellitus complication status: without complication Qualified Code(s): E11.9 - Type 2 diabetes mellitus without complications; 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 I went over with patient's current status including multiorgan failure. I explained her that her prognosis is guarded. We also discussed goals of care including option of palliative care. 04/25 spoke to daughter and other family members at bedside today again. They are actively discussing about palliative care and will likely proceed tomorrow once other family members are here and they had discussion among themselves. Family considering palliative care. Will have family meeting later today. Critical Care Time Spent: 30 minutes Due to a high probability of clinically significant, life threatening deterioration, the patient required my highest level of preparedness to intervene emergently and I personally spent this critical care time directly and personally managing the patient. This critical care time included obtaining a history; examining the patient; pulse oximetry; ordering and review of studies; arranging urgent treatment with development of a management plan; evaluation of patient's response to treatment; frequent reassessment; and discussions with other providers. It was exclusive of separately billable procedures and treating other patients and teaching time. Please see Assessment and Plan section and the rest of the note for further information on patient assessment and treatment This dictation may have been done utilizing a voice recognition system. Attempts have been made to correct errors. However, there may be uncorrected grammatical, spelling, and recognitions errors present. Subjective Date/time seen: 04/26/25 Patient has been off of sedation since yesterday. On stimulation she opens her eyes but does not follow any commands. She appears fairly drowsy. Unimpressive response to diuretics yesterday Continues to be on tube feeds. Afebrile overnight Continues to be on mechanical ventilation at 30% FiO2 Review of Systems Review of Systems: ROS unobtainable: Yes unobtainable due to endotracheal tube, unobtainable due to medical condition and unobtainable due to mental status Exam Narrative: General: Intubated, sedated no acute distress HEENT:? Pupils equal and reactive, sclera is clear Neck:? Supple Respiratory:? Coarse breath sounds bilaterally, no wheezing, adequate air entry, crackles at bases Cardiac:? Paced rhythm, rate controlled, loud systolic murmur / present Abdomen:? Soft, nontender, nondistended, hypoactive bowel sounds, obese Extremities:? Right lower leg erythema, pitting edema, tenderness, purulent drainage from rupture of blister. No crepitus Neuro:? Intubated, off sedated Will, opens her eyes on stimulation but does not follow any commands Skin: Multiple bruising areas on the upper and lower extremities, yeast infection in the intertriginous area Psych:? Unable to assess at this time Objective Data Vital Signs Vital Signs: Vital Signs - 24 hr 04/25/25 10:00 04/25/25 10:00 04/25/25 10:00 Temperature 37.5 C Pulse Rate 72 72 72 Respiratory Rate 17 17 Blood Pressure 133/35 L Pulse Oximetry 93 Oxygen Delivery Fraction of Inspired Oxygen 04/25/25 10:00 04/25/25 11:00 04/25/25 11:05 Temperature 37.6 C H Pulse Rate 72 71 71 Respiratory Rate 17 16 Blood Pressure 127/37 L Pulse Oximetry 93 93 Oxygen Delivery Mechanical Ventilation Fraction of Inspired Oxygen 30 04/25/25 12:00 04/25/25 12:00 04/25/25 12:00 Temperature Pulse Rate 71 71 Respiratory Rate 19 Blood Pressure Pulse Oximetry 93 Oxygen Delivery Mechanical Ventilation Fraction of Inspired Oxygen 30 30 04/25/25 12:00 04/25/25 12:00 04/25/25 12:00 Temperature 37.7 C H Pulse Rate 71 71 71 Respiratory Rate 19 19 19 Blood Pressure 127/37 L Pulse Oximetry 93 Oxygen Delivery Fraction of Inspired Oxygen 04/25/25 13:00 04/25/25 13:44 04/25/25 14:00 Temperature 37.8 C H Pulse Rate 73 73 74 Respiratory Rate 19 19 Blood Pressure 128/34 L Pulse Oximetry 92 92 Oxygen Delivery Mechanical Ventilation Fraction of Inspired Oxygen 30 04/25/25 14:00 04/25/25 14:00 04/25/25 14:00 Temperature 37.7 C H Pulse Rate 74 74 74 Respiratory Rate 19 19 Blood Pressure 129/34 L Pulse Oximetry 92 Oxygen Delivery Fraction of Inspired Oxygen 04/25/25 15:00 04/25/25 16:00 04/25/25 16:00 Temperature 37.8 C H Pulse Rate 73 73 73 Respiratory Rate 21 H 16 Blood Pressure 152/36 H Pulse Oximetry 93 93 Oxygen Delivery Mechanical Ventilation Fraction of Inspired Oxygen 30 04/25/25 16:00 04/25/25 16:00 04/25/25 16:00 Temperature 37.9 C H Pulse Rate 73 73 Respiratory Rate 16 19 Blood Pressure 151/36 H Pulse Oximetry 93 Oxygen Delivery Fraction of Inspired Oxygen 30 04/25/25 16:00 04/25/25 17:00 04/25/25 17:41 Temperature 37.8 C H 38.1 C H Pulse Rate 73 73 Respiratory Rate 19 19 Blood Pressure 147/36 H Pulse Oximetry 93 Oxygen Delivery Fraction of Inspired Oxygen 04/25/25 18:00 04/25/25 18:00 04/25/25 18:00 Temperature Pulse Rate 75 75 75 Respiratory Rate 22 H 22 H Blood Pressure Pulse Oximetry Oxygen Delivery Fraction of Inspired Oxygen 04/25/25 18:00 04/25/25 18:24 04/25/25 18:41 Temperature 38.1 C H 38.1 C H Pulse Rate 77 76 Respiratory Rate 29 H Blood Pressure 148/43 H Pulse Oximetry 93 93 Oxygen Delivery Mechanical Ventilation Fraction of Inspired Oxygen 30 04/25/25 19:00 04/25/25 20:00 04/25/25 20:00 Temperature 38.1 C H Pulse Rate 75 73 73 Respiratory Rate 20 19 19 Blood Pressure 126/35 L Pulse Oximetry 92 Oxygen Delivery Fraction of Inspired Oxygen 04/25/25 20:00 04/25/25 20:00 04/25/25 20:00 Temperature Pulse Rate 74 Respiratory Rate Blood Pressure Pulse Oximetry Oxygen Delivery Mechanical Ventilation Fraction of Inspired Oxygen 30 30 04/25/25 20:00 04/25/25 21:00 04/25/25 21:35 Temperature 38.0 C H 37.9 C H Pulse Rate 74 74 75 Respiratory Rate 19 19 19 Blood Pressure 125/40 L 130/39 L Pulse Oximetry 93 93 94 Oxygen Delivery Mechanical Ventilation Fraction of Inspired Oxygen 30 04/25/25 21:35 04/25/25 22:00 04/25/25 22:00 Temperature Pulse Rate 75 74 74 Respiratory Rate 16 16 Blood Pressure Pulse Oximetry 94 Oxygen Delivery Mechanical Ventilation Fraction of Inspired Oxygen 30 04/25/25 22:00 04/25/25 22:00 04/25/25 23:00 Temperature 37.7 C H 37.7 C H Pulse Rate 74 74 73 Respiratory Rate 16 21 H Blood Pressure 137/39 L 148/41 H Pulse Oximetry 93 94 Oxygen Delivery Fraction of Inspired Oxygen 04/25/25 23:30 04/26/25 00:00 04/26/25 00:00 Temperature 37.7 C H Pulse Rate 75 73 Respiratory Rate 19 Blood Pressure 143/39 H Pulse Oximetry 93 93 Oxygen Delivery Mechanical Ventilation Mechanical Ventilation Fraction of Inspired Oxygen 30 30 04/26/25 00:00 04/26/25 00:00 04/26/25 00:00 Temperature Pulse Rate 74 74 Respiratory Rate 16 Blood Pressure Pulse Oximetry Oxygen Delivery Fraction of Inspired Oxygen 30 04/26/25 00:00 04/26/25 01:00 04/26/25 01:50 Temperature 37.7 C H Pulse Rate 74 74 73 Respiratory Rate 16 16 Blood Pressure 155/46 H Pulse Oximetry 94 94 Oxygen Delivery Mechanical Ventilation Fraction of Inspired Oxygen 30 04/26/25 02:00 04/26/25 02:00 04/26/25 02:00 Temperature 37.7 C H Pulse Rate 72 72 72 Respiratory Rate 19 16 Blood Pressure 151/36 H Pulse Oximetry 95 Oxygen Delivery Fraction of Inspired Oxygen 04/26/25 02:00 04/26/25 03:00 04/26/25 04:00 Temperature 37.7 C H Pulse Rate 72 73 Respiratory Rate 16 16 Blood Pressure 152/42 H Pulse Oximetry 94 Oxygen Delivery Mechanical Ventilation Fraction of Inspired Oxygen 30 04/26/25 04:00 04/26/25 04:00 04/26/25 04:00 Temperature 37.7 C H Pulse Rate 72 71 Respiratory Rate 20 Blood Pressure 191/43 H Pulse Oximetry 95 Oxygen Delivery Fraction of Inspired Oxygen 30 04/26/25 04:00 04/26/25 04:00 04/26/25 05:00 Temperature 37.7 C H Pulse Rate 71 71 71 Respiratory Rate 20 20 21 H Blood Pressure 193/51 H Pulse Oximetry 95 Oxygen Delivery Fraction of Inspired Oxygen 04/26/25 05:04 04/26/25 05:26 04/26/25 06:00 Temperature Pulse Rate 71 73 Respiratory Rate Blood Pressure 185/42 H Pulse Oximetry 95 Oxygen Delivery Mechanical Ventilation Fraction of Inspired Oxygen 30 04/26/25 06:00 04/26/25 06:00 04/26/25 06:00 Temperature 37.7 C H Pulse Rate 73 73 73 Respiratory Rate 18 18 18 Blood Pressure 166/41 H Pulse Oximetry 96 Oxygen Delivery Fraction of Inspired Oxygen 04/26/25 07:00 04/26/25 08:00 04/26/25 08:00 Temperature 37.7 C H Pulse Rate 74 Respiratory Rate 19 Blood Pressure 163/43 H Pulse Oximetry 96 95 Oxygen Delivery Mechanical Ventilation Fraction of Inspired Oxygen 30 30 04/26/25 08:00 04/26/25 08:03 04/26/25 09:00 Temperature 37.8 C H 37.7 C H Pulse Rate 73 72 71 Respiratory Rate 19 21 H Blood Pressure 193/42 H 195/46 H Pulse Oximetry 96 95 96 Oxygen Delivery Mechanical Ventilation Fraction of Inspired Oxygen 30 Intake/Output Intake/Output: Intake & Output 04/23/25 04/24/25 04/25/25 04/26/25 23:59 23:59 23:59 23:59 Intake Total 547.3 3165.1 1842.6 692 Output Total 704 025 1507 525 Balance 7.3 2615.1 842.6 167 Meds/Results Medications: Active Medications Generic Name Dose Route Start Last Admin Trade Name Freq PRN Reason Stop Dose Admin Acetaminophen 650 mg 04/24/25 22:27 04/25/25 17:41 Acetaminophen Elixir 325 Mg/10.15 Ml Udc PO 650 mg Q4H PRN Administration Mild Pain (1-3) or Fever Albuterol/Ipratropium 3 ml 04/24/25 07:53 Ipratropium 0.5 Mg/Albuterol Sulfate 2.5 Mg (Base) Ampul.Neb 3 Ml INHALATION Q6HRT PRN Wheezing Apixaban 5 mg 04/23/25 17:00 04/26/25 08:43 Apixaban 5 Mg Tablet PO 5 mg BID JAIME Administration Atorvastatin Calcium 80 mg 04/18/25 21:00 04/25/25 20:21 Atorvastatin 40 Mg Tablet PO 80 mg HS JAIME Administration Clopidogrel Bisulfate 75 mg 04/18/25 09:00 04/26/25 08:43 Clopidogrel Bisulfate 75 Mg Tablet PO 75 mg DAILY JAIME Administration Dextrose 12.5 gm 04/17/25 21:26 04/23/25 09:47 Dextrose 50% 25 Gm/50 Ml Syringe IV PUSH 12.5 gm PRN PRN Administration Hypoglycemia Protocol Docusate Sodium 100 mg 04/24/25 10:40 04/26/25 08:42 Docusate Sodium Liq 100 Mg/10 Ml Udc PO 100 mg Q12HR JAIME Administration Escitalopram Oxalate 2.5 mg 04/22/25 13:55 04/23/25 08:36 Escitalopram Oxalate 2.5 Mg Tablet PO 2.5 mg On Hold: 04/24/25 07:52 DAILY JAIME Administration Furosemide 80 mg 04/25/25 09:00 04/26/25 08:42 Furosemide Inj 100 Mg/10 Ml Vial IV PUSH 80 mg BID JAIME Administration Glucagon 1 mg 04/17/25 21:26 Glucagon For Inj 1 Mg Vial IM PRN PRN Hypoglycemia Protocol Glucose 15 gm 04/17/25 21:26 Glucose Oral Gel 15 Gm Of Glucse In 37.5 Gm Tube PO PRN PRN Hypoglycemia Protocol Dextrose 1,000 mls @ 100 mls/hr 04/17/25 21:26 Dextrose 5% 1,000 Ml IVPB PRN PRN Hypoglycemia Protocol Ceftriaxone Sodium 2 gm/ 100 mls @ 200 mls/hr 04/24/25 18:00 04/25/25 20:28 Sodium Chloride IVPB Infused Q24H JAIME Infusion Doxycycline Hyclate 100 mg/ 100 mls @ 100 mls/hr 04/24/25 21:00 04/26/25 08:42 Sodium Chloride IVPB 100 mls/hr Q12H JAIME Administration Insulin Aspart 3 - 6 units 04/25/25 09:00 04/26/25 08:42 Insulin Aspart (*Bkc) 100 Units/Ml SUB-Q Not Given Q4HR JAIME Protocol Insulin Glargine 25 units 04/26/25 09:00 04/26/25 08:52 Insulin Glargine (*Bkc) 100 Units/Ml SUB-Q 25 units QAM JAIME Administration Multi-Ingred Cream/Lotion/Oil/Oint 1 applic 04/22/25 21:00 04/26/25 08:53 Mineral Oil/White Petrolatum Ointment EACH EYE 1 applic Q12HR JIAME Administration Pantoprazole Sodium 40 mg 04/23/25 09:00 04/26/25 08:43 Pantoprazole Sodium Iv 40 Mg Vial IV PUSH 40 mg QAM JAIME Administration Sodium Chloride 10 ml 04/22/25 22:00 04/26/25 04:50 Central Line Flush IV PUSH 10 ml Q8HR JAIME Administration Sodium Chloride 20 ml 04/22/25 16:39 Central Line Flush IV PUSH PRN PRN after blood draws Venlafaxine HCl 150 mg 04/18/25 09:00 04/23/25 08:35 Venlafaxine Hcl 75 Mg Tablet PO 150 mg On Hold: 04/24/25 07:52 DAILY JAIME Administration Radiology Results: ITS Impressions Cervical Spine CT 04/17/25 16:46 IMPRESSION: 1. Severe cervical spondylosis with no acute osseous abnormality. 2. Mild pulmonary edema at the apices of lungs. Abdomen X-Ray 04/22/25 16:03 Impression: 1. No acute abnormality. Head CT 04/22/25 16:27 Impression: 1.No acute intracranial abnormality. Chest/Abdomen/Pelvis CT 04/22/25 16:29 IMPRESSION: 1. CHF and superimposed bronchopneumonia. There is underlying chronic lung disease. Follow-up is recommended to assess. 2. No acute intra-abdominal process. 3. Pancreatic lesion suspected. Contrast-enhanced MRI is recommended. Lower Extremity CT 04/22/25 17:02 IMPRESSION: Severe cellulitis. Absence of contrast limits evaluation for abscess however there is no gross loculated fluid collection. There is no air identified suggest necrotizing fasciitis. If there remains clinical concern contrast- enhanced MRI is recommended Chest X-Ray 04/25/25 08:31 IMPRESSION: 1. Probable worsening bilateral effusions right worse than left with pulmonary edema or consolidations also likely present. Labs Labs: Laboratory Results - last 24 hr 04/25/25 04/25/25 04/25/25 12:49 16:49 20:16 WBC RBC Hgb Hct MCV MCH MCHC RDW Plt Count MPV Immature Gran % (Auto) Neut % (Auto) Lymph % (Auto) [place] % (Auto) Eos % (Auto) Baso % (Auto) Lymph # (Auto) [place] # (Auto) Eos # (Auto) Baso # (Auto) Abs Immat Gran (auto) Absolute Neuts (auto) Absolute Nucleated RBC Nucleated RBC % Puncture Site ABG pH ABG pCO2 ABG pO2 ABG PO2/FiO2 Ratio ABG HCO3 ABG O2 Saturation ABG O2 Content ABG Base Excess A-a Gradient Oxyhemoglobin Total Hemoglobin O2 Delivery Device O2 Liters/Min Minute Volume Vent Rate Vent Mode FiO2 Tidal Volume PEEP Peak Inspir Pressure Pressure Support Sodium Potassium Chloride Carbon Dioxide Anion Gap BUN Creatinine Estim Creat Clear Calc Estimated GFR Glucose POC Capillary Glucose 212 H 254 H 250 H Calcium Phosphorus Magnesium Total Bilirubin AST ALT Alkaline Phosphatase Total Protein Albumin 04/25/25 04/26/25 04/26/25 23:41 04:37 04:45 WBC RBC Hgb Hct MCV MCH MCHC RDW Plt Count MPV Immature Gran % (Auto) Neut % (Auto) Lymph % (Auto) [place] % (Auto) Eos % (Auto) Baso % (Auto) Lymph # (Auto) [place] # (Auto) Eos # (Auto) Baso # (Auto) Abs Immat Gran (auto) Absolute Neuts (auto) Absolute Nucleated RBC Nucleated RBC % Puncture Site Right radial ABG pH 7.468 H ABG pCO2 36.8 ABG pO2 87.1 ABG PO2/FiO2 Ratio 2.90 ABG HCO3 26.1 H ABG O2 Saturation 97.1 ABG O2 Content 17.6 ABG Base Excess 2.5 A-a Gradient 83.6 Oxyhemoglobin 95.8 Total Hemoglobin 13.0 O2 Delivery Device Ventilator O2 Liters/Min Not Reportable Minute Volume Not Reportable Vent Rate 16 Vent Mode Cmv FiO2 30 Tidal Volume 320 PEEP 8 Peak Inspir Pressure Not Reportable Pressure Support Not Reportable Sodium Potassium Chloride Carbon Dioxide Anion Gap BUN Creatinine Estim Creat Clear Calc Estimated GFR Glucose POC Capillary Glucose 222 H 214 H Calcium Phosphorus Magnesium Total Bilirubin AST ALT Alkaline Phosphatase Total Protein Albumin 04/26/25 04/26/25 04:48 08:40 WBC 5.9 RBC 3.92 L Hgb 12.2 Hct 38.1 MCV 97.2 MCH 31.1 MCHC 32.0 RDW 14.7 H Plt Count 174 MPV 10.1 Immature Gran % (Auto) 0.7 H Neut % (Auto) 73.6 H Lymph % (Auto) 9.7 L [place] % (Auto) 10.4 H Eos % (Auto) 5.1 H Baso % (Auto) 0.5 Lymph # (Auto) 0.57 L [place] # (Auto) 0.6 Eos # (Auto) 0.3 Baso # (Auto) 0.0 Abs Immat Gran (auto) 0.04 H Absolute Neuts (auto) 4.3 Absolute Nucleated RBC 0.000 Nucleated RBC % 0.0 Puncture Site ABG pH ABG pCO2 ABG pO2 ABG PO2/FiO2 Ratio ABG HCO3 ABG O2 Saturation ABG O2 Content ABG Base Excess A-a Gradient Oxyhemoglobin Total Hemoglobin O2 Delivery Device O2 Liters/Min Minute Volume Vent Rate Vent Mode FiO2 Tidal Volume PEEP Peak Inspir Pressure Pressure Support Sodium 136 L Potassium 4.1 Chloride 101 Carbon Dioxide 29 Anion Gap 6 BUN 51 H D Creatinine 1.24 H Estim Creat Clear Calc Not Reportable Estimated GFR 41 L Glucose 202 H POC Capillary Glucose 185 H Calcium 9.3 Phosphorus 4.0 Magnesium 1.7 Total Bilirubin 0.6 AST 26 ALT 6 Alkaline Phosphatase 81 Total Protein 6.3 Albumin 3.1 L
[2025-04-26] MEDS: FENTANYL 2,500MCG/NS250ML(*CRX 2,500 MCG/250 ML BAG IV CONT (10:50)
[2025-04-26] MEDS: fentaNYL CITRATE INJ (*CRX) 100 MCG/2 ML VIAL 50 MCG IV PUSH (10:50)
--- NOTE | 2025-04-26 11:21 | PCFNICU ---
ICU Rounding Note: Pt current nutrition is Vital HP at 55 ml/hr. Last recorded weight is 94.8 kg, up from 86.5 kg on admit. Bowel Motility: Last reported BM 04/24 Labs Reviewed: Glu 202, GFR 41, Cr 1.24, Alb 3.1 Meds Noted:Lasix,Colace Skin: WNL Additional Notes: Patient remains on mechanical vent. Tube feedings are being tolerated of Vital HP at 55 ml/hr. Flush 30 ml q 4 hours. Agree with diet orders. Spoke with [employer] and nursing, possible withdraw of care later today. Following daily in ICU rounds. Monitoring tube feeding rate, tolerance, weights, labs, output, meds, plan of care Follow up Wednesday/Wednesday.
[2025-04-26] MEDS: ACETAMINOPHEN ELIXIR 325 MG/10.15 ML UDC 650 MG PO (13:40)
[2025-04-26] MEDS: cefTRIAXone 2 GM in SODIUM CHLORIDE 0.9% IV 100 ML IVPB (17:13)
[2025-04-26] MEDS: diazePAM INJ (*CRX) 10 MG/2 ML SYRINGE IV PUSH (18:39)
[2025-04-26] MEDS: MORPHINE SULFATE (*CRX) 4 MG/ML INJ 5 MG IV PUSH (18:39)
[2025-04-26] MEDS: MORPHINE SULFATE (*CRX) 4 MG/ML INJ IV PUSH (21:44)
[2025-04-26] MEDS: diazePAM INJ (*CRX) 10 MG/2 ML SYRINGE 5 MG IV PUSH (21:45)
--- NOTE | 2025-04-26 21:48 | PC.NURSE ---
Gave patient's ring out of safe to Lora Ly her next of kin.
[2025-04-27] MEDS: diazePAM INJ (*CRX) 10 MG/2 ML SYRINGE 5 MG IV PUSH ×4 (00:03→16:19)
[2025-04-27] MEDS: MORPHINE SULFATE (*CRX) 4 MG/ML INJ IV PUSH ×2 (01:20→16:17)
--- NOTE | 2025-04-27 02:17 | PC.NURSE ---
This patient, Lizabeth Perry, was transferred to [facility] on 04/26/25 at 2330. Personal belongings sent with patient. Report given and RN met us at bedside. Appropriate documentation sent with patient.
[2025-04-27 03:50] VITALS: PULSE 84; RESP 32
[2025-04-27] MEDS: MORPHINE 50 MG/NS 100ML (*CRX) 50 MG/100 ML BAG IV CONT (03:50)
--- NOTE | 2025-04-27 07:49 | PM.IMPN2 ---
Assessment and Plan Assessment and Plan (1) Acute hypoxic respiratory failure: Code(s): J96.01 - Acute respiratory failure with hypoxia Status: Acute Assessment and Plan: 04/22/2025, I was called to the rapid response as patient was getting her breathing treatment, went unresponsive and hypoxic upon arrival to the room patient had a pulse, oxygen was being bagged, O2 sats were 96-98%, blood pressures were stable. Patient was unresponsive, skin was mottled from the abdomen to her lower extremities. I decided to intubate her on the medical floor. -04/22: Patient was intubated successfully 04/24 -currently on CMV mode of ventilation, peep of 8, 30% FiO2 -continue bronchodilators -on sedation holiday X-ray shows persistent CHF Continue Lasix IV for now diuresis difficult with severe aortic stenosis Broad-spectrum Antibiotics as below for pneumonia and cellulitis 04/22: repeat CT brain: no acute intracranial abnormality 04/22: CT chest abdomen and pelvis IMPRESSION: 1. CHF and superimposed bronchopneumonia. There is underlying chronic lung disease. Follow-up is recommended to assess. 2. No acute intra-abdominal process. 3. Pancreatic lesion suspected. Contrast-enhanced MRI is recommended. (2) Cellulitis: Code(s): L03.90 - Cellulitis, unspecified Status: Acute Assessment and Plan: Right lower extremity cellulitis with ruptured blister and purulent drainage 04/17: Blood cultures negative x2 04/20: Right lower extremity wound culture shows MRSA Klebsiella and Serratia i Patient was on ceftriaxone, and vancomycin (04/18). DC ceftriaxone -will continue vancomycin (04/18) and Zosyn (04/22) - 04/23: Infectious disease consulted, discussed with ID will continue vancomycin and Zosyn 04/24 antibiotics changed to doxycycline and ceftriaxone by Infectious Disease 04/26 -in light of fevers and MRSA I will restart vancomycin and DC doxycycline. Will discuss with Infectious Disease 04/22: CT right lower extremity: Severe cellulitis. Absence of contrast limits evaluation for abscess however there is no gross loculated fluid collection. There is no air identified suggest necrotizing fasciitis. If there remains clinical concern contrast-enhanced MRI is recommended (3) Shock: Code(s): R57.9 - Shock, unspecified Status: Acute Assessment and Plan: 04/23: patient was hypotensive on the evening of 04/22, started on Levophed, which was later stopped. 04/23: Patient was hypotensive again, today and Levophed was started to maintain SBP > 100 mmHg or MAP > 65 mmHg - 04/20/2025 blood cultures: Negative x2 - 04/20/2025 right lower extremity wound culture growing Klebsiella and MRSA - continue antibiotics per Infectious Disease as above -off Levophed. Continue diuretics procalcitonin level low at 0.1 Echocardiogram shows severe aortic stenosis and regurgitation along with mild dilation of left ventricle. Left atrium is severely dilated (4) Fall: Code(s): W19.XXXA - Unspecified fall, initial encounter Status: Acute Assessment and Plan: Patient presented on 04/17/2025 after having a fall, she hit her face and head but did not lose any consciousness. She is on Eliquis and Plavix at home -04/17: CT brain on admission did not show any acute intracranial abnormality, remote right cerebellar lacunar infarct -04/17: CT spine: Is this showed severe cervical spondylosis with no acute osseous abnormality, mild pulmonary edema at the apices of the lung (5) Atrial fibrillation: Qualifiers: Atrial fibrillation type: unspecified chronic Qualified Code(s): I48.20 - Chronic atrial fibrillation, unspecified Code(s): I48.91 - Unspecified atrial fibrillation Status: Chronic Assessment and Plan: Patient has a history of atrial fibrillation, has a leadless pacemaker as seen on the chest x-ray -patient on apixaban and Plavix at home which was restarted at the hospital on 04/18/2025 -04/22: CT brain with no acute intracranial abnormality Continue apixaban and clopidogrel (6) Acute exacerbation of CHF (congestive heart failure): Code(s): I50.9 - Heart failure, unspecified Status: Acute Assessment and Plan: Patient has a history of congestive heart failure, on Lasix, spironolactone, Entresto, will continue to hold for now given patient does get intubated, with adequate blood pressures Continue diuretics (7) HLD (hyperlipidemia): Code(s): E78.5 - Hyperlipidemia, unspecified Status: Acute Assessment and Plan: Continue atorvastatin (8) Hypertension: Qualifiers: Hypertension type: primary hypertension Qualified Code(s): I10 - Essential (primary) hypertension Code(s): I10 - Essential (primary) hypertension Status: Chronic Assessment and Plan: Hold all antihypertensives as patient is intubated on positive pressure ventilation and sedation, hypotensive on Levophed (9) T2DM (type 2 diabetes mellitus): Qualifiers: 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 I went over with patient's current status including multiorgan failure. I explained her that her prognosis is guarded. We also discussed goals of care including option of palliative care. 04/25 spoke to daughter and other family members at bedside today again. They are actively discussing about palliative care and will likely proceed tomorrow once other family members are here and they had discussion among themselves. Family considering palliative care. Will have family meeting later today. Critical Care Time Spent: 30 minutes Due to a high probability of clinically significant, life threatening deterioration, the patient required my highest level of preparedness to intervene emergently and I personally spent this critical care time directly and personally managing the patient. This critical care time included obtaining a history; examining the patient; pulse oximetry; ordering and review of studies; arranging urgent treatment with development of a management plan; evaluation of patient's response to treatment; frequent reassessment; and discussions with other providers. It was exclusive of separately billable procedures and treating other patients and teaching time. Please see Assessment and Plan section and the rest of the note for further information on patient assessment and treatment This dictation may have been done utilizing a voice recognition system. Attempts have been made to correct errors. However, there may be uncorrected grammatical, spelling, and recognitions errors present. Subjective Date/time seen: 04/27/25 07:49 Interval history: low grade temps no leukocytosis no pressors Review of Systems Review of Systems: 12 systems were reviewed and are negative except for as per HPI. All systems reviewed & are unremarkable except as noted in HPI and below ROS unobtainable: Yes unobtainable due to endotracheal tube, unobtainable due to medical condition and unobtainable due to mental status Exam Narrative: General: Intubated, sedated no acute distress HEENT:? Pupils equal and reactive, sclera is clear Neck:? Supple Respiratory:? Coarse breath sounds bilaterally, no wheezing, adequate air entry, crackles at bases Cardiac:? Paced rhythm, rate controlled, loud systolic murmur 3/6 present Abdomen:? Soft, nontender, nondistended, hypoactive bowel sounds, obese Extremities:? Right lower leg erythema, pitting edema, tenderness, purulent drainage from rupture of blister. No crepitus Neuro:? Intubated, off sedated Will, opens her eyes on stimulation but does not follow any commands Skin: Multiple bruising areas on the upper and lower extremities, yeast infection in the intertriginous area Psych:? Unable to assess at this time Objective Data Vital Signs Vital Signs: Vital Signs - 24 hr 04/26/25 08:00 04/26/25 08:00 04/26/25 08:00 Temperature 100.1 F H Pulse Rate 73 Respiratory Rate 19 Blood Pressure 193/42 H Pulse Oximetry 95 96 Oxygen Delivery Mechanical Ventilation Fraction of Inspired Oxygen 30 30 04/26/25 08:00 04/26/25 08:03 04/26/25 09:00 Temperature 100 F H Pulse Rate 73 72 71 Respiratory Rate 21 H Blood Pressure 195/46 H Pulse Oximetry 95 96 Oxygen Delivery Mechanical Ventilation Fraction of Inspired Oxygen 30 04/26/25 10:00 04/26/25 10:00 04/26/25 10:50 Temperature 99.8 F H Pulse Rate 74 74 72 Respiratory Rate 19 20 Blood Pressure 183/100 H Pulse Oximetry 95 Oxygen Delivery Fraction of Inspired Oxygen 04/26/25 11:00 04/26/25 11:22 04/26/25 12:00 Temperature 99.9 F H Pulse Rate 76 77 Respiratory Rate 17 Blood Pressure 156/43 H Pulse Oximetry 95 94 94 Oxygen Delivery Mechanical Ventilation Mechanical Ventilation Fraction of Inspired Oxygen 30 30 04/26/25 12:00 04/26/25 12:00 04/26/25 12:00 Temperature 100 F H Pulse Rate 74 74 Respiratory Rate 18 Blood Pressure 163/46 H Pulse Oximetry 95 Oxygen Delivery Fraction of Inspired Oxygen 30 12/11/25 12:00 04/26/25 13:00 04/26/25 13:40 Temperature 100.3 F H 100.3 F H Pulse Rate 74 74 Respiratory Rate 18 18 Blood Pressure 145/38 H Pulse Oximetry 95 Oxygen Delivery Fraction of Inspired Oxygen 04/26/25 14:00 04/26/25 14:00 04/26/25 14:00 Temperature 100.3 F H Pulse Rate 74 74 74 Respiratory Rate 16 16 Blood Pressure 130/39 L Pulse Oximetry 95 Oxygen Delivery Fraction of Inspired Oxygen 04/26/25 14:16 04/26/25 14:40 04/26/25 15:00 Temperature 100.3 F H 100.3 F H Pulse Rate 74 73 Respiratory Rate 17 Blood Pressure 122/42 L Pulse Oximetry 95 97 Oxygen Delivery Mechanical Ventilation Fraction of Inspired Oxygen 30 04/26/25 16:00 04/26/25 16:00 04/26/25 16:00 Temperature 100.3 F H Pulse Rate 73 Respiratory Rate 18 Blood Pressure 131/38 L Pulse Oximetry 97 97 Oxygen Delivery Mechanical Ventilation Fraction of Inspired Oxygen 30 30 04/26/25 16:00 04/26/25 16:00 04/26/25 17:00 Temperature 100.3 F H Pulse Rate 73 73 74 Respiratory Rate 18 16 Blood Pressure 144/35 H Pulse Oximetry 97 Oxygen Delivery Fraction of Inspired Oxygen 04/26/25 17:00 04/26/25 18:00 04/26/25 18:00 Temperature Pulse Rate 74 73 73 Respiratory Rate 18 Blood Pressure 117/40 L Pulse Oximetry 99 96 Oxygen Delivery Mechanical Ventilation Fraction of Inspired Oxygen 30 04/26/25 18:40 04/26/25 18:45 04/26/25 19:00 Temperature Pulse Rate 73 81 Respiratory Rate 31 H 35 H Blood Pressure 116/51 L Pulse Oximetry 74 L Oxygen Delivery Room Air Fraction of Inspired Oxygen 04/26/25 19:42 04/26/25 21:52 04/26/25 22:00 Temperature 100 F H Pulse Rate 82 82 Respiratory Rate 28 H 31 H Blood Pressure 116/53 L 147/36 H Pulse Oximetry 78 L 68 L Oxygen Delivery Room Air Fraction of Inspired Oxygen 04/27/25 03:50 Temperature Pulse Rate 84 Respiratory Rate 32 H Blood Pressure Pulse Oximetry Oxygen Delivery Fraction of Inspired Oxygen Intake/Output Intake/Output: Intake & Output 04/24/25 04/25/25 04/26/25 04/27/25 23:59 23:59 23:59 23:59 Intake Total 3165.1 1842.6 1790.0 0 Output Total 550 1000 1175 400 Balance 2615.1 842.6 615.0 -400 Meds/Results Medications: Active Medications Generic Name Dose Route Start Last Admin Trade Name Freq PRN Reason Stop Dose Admin Atropine Sulfate 1 drop 04/27/25 01:33 04/27/25 01:52 Atropine Sulfate 1% Ophth Soln 5 Ml Bottle SUBLINGUAL 1 drop Q4H PRN Administration Secretions Diazepam 5 mg 04/26/25 18:20 04/27/25 05:22 Diazepam Inj (*Crx) 10 Mg/2 Ml Syringe IV PUSH 5 mg Q1H PRN Administration comfort Morphine Sulfate 50 mg in 100 mls @ 4 mls/hr 04/27/25 03:15 04/27/25 03:50 IV CONT 2 mg/hr .Q24H JAIME 4 mls/hr 2 MG/HR Administration Morphine Sulfate 4 mg 04/27/25 03:17 Morphine Sulfate (*Crx) 4 Mg/Ml Inj IV PUSH Q2H PRN COMFORT Radiology Results: ITS Impressions Cervical Spine CT 04/17/25 16:46 IMPRESSION: 1. Severe cervical spondylosis with no acute osseous abnormality. 2. Mild pulmonary edema at the apices of lungs. Abdomen X-Ray 04/22/25 16:03 Impression: 1. No acute abnormality. Head CT 04/22/25 16:27 Impression: 1.No acute intracranial abnormality. Chest/Abdomen/Pelvis CT 04/22/25 16:29 IMPRESSION: 1. CHF and superimposed bronchopneumonia. There is underlying chronic lung disease. Follow-up is recommended to assess. 2. No acute intra-abdominal process. 3. Pancreatic lesion suspected. Contrast-enhanced MRI is recommended. Lower Extremity CT 04/22/25 17:02 IMPRESSION: Severe cellulitis. Absence of contrast limits evaluation for abscess however there is no gross loculated fluid collection. There is no air identified suggest necrotizing fasciitis. If there remains clinical concern contrast-enhanced MRI is recommended Chest X-Ray 04/25/25 08:31 IMPRESSION: 1. Probable worsening bilateral effusions right worse than left with pulmonary edema or consolidations also likely present. Labs Labs: Laboratory Results - last 24 hr 04/26/25 04/26/25 04/26/25 08:40 12:45 17:06 POC Capillary Glucose 185 H 248 H 164 H Quality VTE Prophylaxis VTE prophylaxis: pharmacologic ordered
[2025-04-27 09:09] VITALS: O2SAT 60
--- NOTE | 2025-04-27 14:28 | PC.NURSE ---
I offered wound care to the pts. family. The family refused wound care and vitals. Pt. is resting comfortably surrounded by family.
--- NOTE | 2025-04-28 11:05 | PM.DS ---
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 She states that she fell onto her face it did not lose consciousness. Patient denies headache. Has a large hematoma to forehead. Patient complains of left alegria pain. It is acute keeping her awake at night. Patient states the place where she lives is not doing anything for her leg. Patient does not know how long she has had leg wound. Denies fevers chills nausea or vomiting. CBC is within normal limits, BMP shows BUN of 22 creatinine of 1.2 GFR 52, glucose of 178. Chest x-ray shows Bilateral lower lobe infiltrate and opacity may represent edema. CT head shows no acute process, CT spine shows no acute process. Pulmonary edema found on CT spine. 40 mg IV Lasix given in ED. Hospital Course: The patient was admitted after a fall, treated for a CHF exacerabation. Decompensated 04/22 and required intubation and pressor support in the ICU. Had severe aortic stenosis, CHF, bronchopneumonia and chronic lung disease and a suspected pancreatic lesion on CT chest abd/pelvis 04/22. 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 Hospital course complicated by multiorgan failure and shock, likely septic vs cardiogenic. Family ultimately pursued hospice since prognosis was poor. She extubated and transitioned to palliative care. Hospice consulted 04/27, discharged to hospice service. Status at Discharge Cognitive/behavioral status at discharge: x0 Time Spent with Patient Time attestation: Total time spent providing and/or coordinating discharge services: 38 minutes Exam Narrative: General - Asleep. Tachypneic Eyes - PERRLA, EOM intact ENT - No thrush, No erythema Neck - No noticeable or palpable swelling Lymph Nodes - No lymphadenopathy Cardiovascular - Murmur, RRR Lungs: Decreased all lobes, no wheezes Skin - Skin warm and dry Abdomen - Normal bowel sounds, abdomen soft and nontender Extremities - Trace edema, cyanosis or clubbing Musculoskeletal - flaccid, 0/5 Neurological ? Alert and oriented x 0, not responsive Discharge Plan Discharge Attending physician on discharge: Guillermina Mcmahon Consulting providers: Natalee Helton; Genesis Sauceda; Guillermina Mcmahon Discharging Clinician: Guillermina Mcmahon Anticipated Discharge Date/Time: 04/27/25 11:17 Patient Disposition: Hospice - Medical Facility Discharge Instructions: Discharged to hospice care Patient Instructions: Heart Failure (DC), MRSA (Methicillin-Resistant Staphylococcus Aureus) (GEN), Cellulitis (GEN), Sepsis (GEN), Blood Thinners (DC), Acute Respiratory Failure (GEN) Patient Language: Spanish Stand Alone Forms: General Discharge Information Discharge Medications: Discontinued atorvastatin 80 mg Tablet 80 mg PO HS metoprolol succinate 100 mg Tablet Extended Release 24 Hr 100 mg PO BID clopidogrel 75 mg Tablet 75 mg PO DAILY furosemide 20 mg Tablet 20 mg PO BID PRN (Reason: lower leg swelling) Hair,Skin and Nails Tablet 2 tablet PO DAILY alprazolam 0.25 mg tablet 0.25 mg PO DAILY PRN (Reason: anxiety) buspirone 5 mg tablet 5 mg PO BID PRN (Reason: anxiety) A Thru Z Select 50Plus Formula 0.4 mg-300 mcg- 250 mcg tablet 1 tablet PO DAILY All Day Allergy (cetirizine) 10 mg capsule 10 mg PO HS clobetasol 0.05 % solution 1 applic topical BID ketoconazole 2 % cream 1 applic topical DAILY loperamide [Anti-Diarrheal (loperamide)] 2 mg capsule 2 mg PO DAILY PRN (Reason: loose stool) nystatin 100,000 unit/gram powder 1 applic topical BID Zoryve 0.3 % cream 1 applic topical DAILY Eliquis 5 mg tablet 5 mg PO BID sacubitril-valsartan [Entresto] 24-26 mg tablet 1 tablet PO BID oxybutynin ER 15 mg tablet 30 mg PO HS Ozempic 2 mg/dose (8 mg/3 mL) pen injector 2 mg subcut WEEKLY Patient Comments: Wednesday pantoprazole 40 mg tablet,delayed release (DR/EC) 40 mg PO QAM spironolactone 25 mg tablet 12.5 mg PO QAM insulin degludec [Tresiba FlexTouch U-200] 200 unit/mL (3 mL) insulin pen 24 unit subcut DAILY tramadol 50 mg tablet 50 mg PO Q12H PRN (Reason: pain (scale score 6-10)) Patient Comments: 1 or 2 tabs diphenhydramine-acetaminophen [Pain Relief PM] 25-500 mg tablet 2 tablet PO HS venlafaxine 75 mg tablet 150 mg PO DAILY Date of admission: 04/17/25 17:10 Primary Care Provider: AnnieGerri Admitting Provider: Juan Key Attending physician on admission: Juan Key Condition: Stable Quality If No VTE Prophylaxis Answer both mechanical and pharmacologic: Reason no mechanical VTE proph: medical contraindication (Hospice) Reason no pharmacologic proph: medical contraindication Hospitalist MIPS Heart Failure (Exclusion) Patient has history of Heart Transplant or Left Ventricular Assistive Device?: No IF YES, STOP HERE Heart Failure (Qualifier) Patient has current or prior documentation of LVEF less than or equal to 40%, or mod/servere depressed LVSF?: Yes IF NO, STOP HERE If Yes, Heart Failure (Qualifier) Patient was prescribed or already taking an Angiotensin-Converting Enzyme (GEGE) Inhibitor, or Antiotensin Receptor Neelam (ARB): No Patient was prescribed or already taking bisoprolol, carvedilol, or sustained release metoprolol succinate: No If Medications not prescribed/taking Reason patient not prescribed/taking GEGE or ARB: Patient reasons: pt declined or other pt reason (Hospice) Reason patient not prescribed/taking bisoprolol, carvedilol, or sustained realease metoprolol succinate: Patient reasons: pt declined or other pt reason (Hospice)
== END 2025-04-27 16:46 | disposition hospice, inpatient (51) | DRG 870 ==
LOC: ANHED 17:12 → ANH3MEDSUR 18:47 → ANH2MED 18:57 → ANHICU 04-22 14:41 → ANH2MED 04-26 23:50
PROVIDERS: Internal Medicine; Internal Medicine Infectious Disease; Nurse Practitioner; Nurse Practitioner Gerontology; Admitting Provider Internal Medicine; Emergency Provider Emergency Medicine; Visit Provider Nurse Practitioner Acute Care
DX: A41.9 Sepsis, unspecified organism (principal); J18.0 Bronchopneumonia, unspecified organism; J96.01 Acute respiratory failure with hypoxia; J18.9 Pneumonia, unspecified organism; R65.21 Severe sepsis with septic shock; G93.41 Metabolic encephalopathy; I48.20 Chronic atrial fibrillation, unspecified; L03.115 Cellulitis of right lower limb; B96.1 Klebsiella pneumoniae [K. pneumoniae] as the cause of diseases classified elsewhere; B95.62 Methicillin resistant Staphylococcus aureus infection as the cause of diseases classified elsewhere; E11.51 Type 2 diabetes mellitus with diabetic peripheral angiopathy without gangrene; G47.33 Obstructive sleep apnea (adult) (pediatric); I11.0 Hypertensive heart disease with heart failure; I50.9 Heart failure, unspecified; I25.10 Atherosclerotic heart disease of native coronary artery without angina pectoris; I25.2 Old myocardial infarction; I35.0 Nonrheumatic aortic (valve) stenosis; J98.4 Other disorders of lung; K86.9 Disease of pancreas, unspecified; M79.662 Pain in left lower leg; S00.83XA Contusion of other part of head, initial encounter; W19.XXXA Unspecified fall, initial encounter; Z79.02 Long term (current) use of antithrombotics/antiplatelets; Z95.1 Presence of aortocoronary bypass graft; Z79.01 Long term (current) use of anticoagulants; Z79.4 Long term (current) use of insulin; Z79.85 Long-term (current) use of injectable non-insulin antidiabetic drugs; E78.5 Hyperlipidemia, unspecified; Z86.718 Personal history of other venous thrombosis and embolism; Z95.4 Presence of other heart-valve replacement; Z95.5 Presence of coronary angioplasty implant and graft; Z95.0 Presence of cardiac pacemaker; Z66 Do not resuscitate; Z22.322 Carrier or suspected carrier of Methicillin resistant Staphylococcus aureus; Z51.5 Encounter for palliative care
CPT/HCPCS: 31500; 36415; 36600; 70450; 71045; 71250; 72125; 73700; 74176; 80048; 80053; 82140; 82375; 82805; 82948; 83050; 83605; 83690; 83735; 84100; 84145; 84443; 84484; 85018; 85025; 85027; 85610; 85730; 87040; 87070; 87186; 87205; 87641; 90715; 94002; 94003; 94640; 94762; 96365; 96375; 97110; 97162; 97165; 97530; 99285; J0690; A9270; C1751; J0696; J1815; J1938; J2250; J2270; J2470; J2543; J3010; J3360; J3373; J3475; J3480; J7030; J7050; P9045

== ENCOUNTER 2025-04-27 16:46 | HOS | payer OTHER, MEDICARE, BC, SELFPAY ==
--- NOTE | 2025-04-27 18:00 | PC.NURSE ---
pt transferred in to inpt hospice care with [facility] hospice, morphine drip continues, pt resting comfortably, many family members at bedside
--- NOTE | 2025-04-27 18:30 | PC.NURSE ---
morphine drip continued from bag hanging from comfort measures admission [id number] dose changed per MD orders
--- NOTE | 2025-04-27 18:44 | PC.NURSE ---
Pt. transferred to in pt. hospice with [facility].
[2025-04-27] MEDS: MORPHINE SULFATE (*CRX) 4 MG/ML INJ IM (18:52)
[2025-04-27] MEDS: diazePAM INJ (*CRX) 10 MG/2 ML SYRINGE 5 MG IV PUSH ×2 (18:53→22:04)
[2025-04-27] MEDS: MORPHINE SULFATE INJ (*CRX) 50 MG in SODIUM CHLORIDE 0.9% IV 95 ML 8 MG IV CONT ×2 (18:57→23:59)
[2025-04-27] MEDS: GLYCOPYRROLATE INJ (*SP) 0.2 MG/ML VIAL 0.1 MG IV PUSH (22:10)
[2025-04-27] MEDS: MORPHINE SULFATE (*CRX) 4 MG/ML INJ IV PUSH (23:34)
[2025-04-28] MEDS: diazePAM INJ (*CRX) 10 MG/2 ML SYRINGE 5 MG IV PUSH ×6 (02:22→22:09)
[2025-04-28] MEDS: GLYCOPYRROLATE INJ (*SP) 0.2 MG/ML VIAL 0.1 MG IV PUSH ×3 (02:23→20:47)
[2025-04-28] MEDS: MORPHINE SULFATE (*CRX) 4 MG/ML INJ IV PUSH ×7 (04:33→20:47)
[2025-04-28] MEDS: ARTIFICIAL TEARS OPHTH SOLN 15 ML BOTTLE 1 DROP EACH EYE (09:58)
[2025-04-28] MEDS: MORPHINE SULFATE INJ (*CRX) 50 MG in SODIUM CHLORIDE 0.9% IV 95 ML 8 MG IV CONT ×2 (11:31→23:18)
--- NOTE | 2025-04-28 12:33 | P.HP_ITS ---
H&P: HPI History of Present Illness Date/Time: 04/28/25 12:33 Chief Complaint: Uncontrolled dyspnea Narrative: 84-year-old female with history of multiple comorbidities as outlined was admitted [facility] April 17 with possible cellulitis of the leg. She was treated with antibiotic therapy and experience a respiratory panel April 21. Chest x-ray revealed congestive heart failure with possible pneumonia. Antibiotic spectrum was broadened. She was transferred ICU intubated. Spite of appropriate therapy she failed to improve. She underwent compassionate extubation April 26 episodic continue his morphine drip for dyspnea. Her respirations were still in the 40s so she was admitted inpatient hospice service April 27 for symptom management. Review of Systems Review of Systems: ROS unobtainable: Yes unobtainable due to medical condition PMFSH Past Medical History Medical History HLD (hyperlipidemia) Hypertension Peripheral vascular disease History of pacemaker Myocardial infarction Congestive heart failure Atrial fibrillation Coronary artery disease Deep vein thrombosis September 2024 Insulin dependent type 2 diabetes mellitus Surgical History Surgical History History of thrombectomy right groin DVT in September 2024 Aortic valve replaced Coronary artery disease status post coronary stent insertion 3 stents placed in 2022 Family History Family History Father Diabetes mellitus Other Heart disease Social History Social History Smoking status: Never smoker Alcohol intake: former Substance use: never Substance use type: does not use Lack of Transportation: No Lack of Food: Never True Current Housing: I Have Housing Concerned About Future Housing: No Difficulty Paying Gas/Electric Bills: No Difficulty Paying for Meds: No Currently Unemployed: No Education: High School Diploma/GED Difficulty w/ Childcare or Family Care: No Living arrangements: assisted living Additional living arrangements comments: [facility] Spiritual care concerns: No Meds Home Medications and Allergies Home Medications ?Medication ?Instructions ?Recorded ?Confirmed ?Type atorvastatin 80 mg tablet 80 mg PO HS 03/20/24 5 History clopidogrel 75 mg tablet 75 mg PO DAILY 03/20/2407/11 History furosemide 20 mg tablet 20 mg PO BID PRN lower leg s welling 03/20/24 04/17/25 History metoprolol succinate 100 mg 100 mg PO BID 03/20/2407/11 History tablet,extended release 24 hr multivitamin with minerals 2 tablet PO DAILY 03/20/24 04/17/25 History (Hair,Skin and Nails tablet) apixaban 5 mg tablet (Eliquis) 5 mg PO BID 12/08/24 History insulin degludec 200 unit/mL (3 24 unit subcut DAILY 0 12/08/24 04/17/25 History mL) subcutaneous pen (Tresiba FlexTouch U-200 insulin) oxybutynin ER 30 mg PO HS 12/08/24 5 History pantoprazole 40 mg tablet,delayed 40 mg PO QAM 5 04/17/25 History release sacubitril 24 mg-valsartan 26 mg 1 tablet PO BID 12/0804/17/25 History tablet (Entresto) semaglutide 2 mg/dose (8 mg/3 mL) 2 mg subcut WEEKLY 0 12/08/24 04/17/25 History subcutaneous pen injector (Ozempic) spironolactone 25 mg tablet 12.5 mg PO QAM 12/08/24 History alprazolam 0.25 mg tablet 0.25 mg PO DAILY PRN anxiety 03/09/25 04/17/25 History buspirone 5 mg tablet 5 mg PO BID PRN anxiety 02/1504/17/25 History cetirizine 10 mg capsule (All Day 10 mg PO HS 03/09/25 04/17/25 History Allergy (cetirizine)) clobetasol 0.05 % scalp solution 1 applic topical BID 03/09/25 04/17/25 History ketoconazole 2 % topical cream 1 applic topical DAILY 03/09/25 04/17/25 History loperamide 2 mg capsule 2 mg PO DAILY PRN loose stoo l 03/09/25 04/17/25 History (Anti-Diarrheal (loperamide)) hgolgsaw-kmc-lyrbw acid 0.4 1 tablet PO DAILY 03/09/25 04/17/25 History mg-lycopene 300 mcg-lutein 250 mcg tablet (A Thru Z Select 50 Plus Formula) nystatin 100,000 unit/gram topical 1 applic topical BI D 03/09/25 04/17/25 History powder roflumilast 0.3 % topical cream 1 applic topical DAILY 03/09/25 04/17/25 History (Zoryve) diphenhydramine 25 2 tablet PO HS 04/17/25 12/ 2 History mg-acetaminophen 500 mg tablet (Pain Relief PM) tramadol 50 mg tablet 50 mg PO Q12H PRN pain (scal e 04/17/25 04/17/25 History score 6-10) venlafaxine 75 mg tablet 150 mg PO DAILY 04/17/2507/11 History Allergies Allergy/AdvReac Type Severity Reaction Status Date / Time No Known Allergies Allergy Verified 04/27/25 19:20 Vital Signs Vital Signs - 24 hr 04/27/25 18:00 04/27/25 20:00 Oxygen Delivery Room Air Room Air Exam Narrative: HEENT: Pharyngeal mucosa pink and intact NECK: No JVD CHEST: Distant breath sounds, normal effort HEART: NL S1/S2, regular, 3/6 right upper sternal border murmur ABDOMEN: BS hypoactive, soft, nontender, no mass, no bruits EXTREMITIES: Mild cyanosis right toes NEUROLOGIC: CN intact and symmetric to inspection MUSCULOSKELETAL: No deformities to inspection PSYCH: Unresponsive to verbal or tactile stimuli Assessment and Plan Assessment and plan (1) Hospice care: Code(s): Z51.5 - Encounter for palliative care Status: Acute Assessment and Plan: * Meet inpatient hospice criteria due to required continuous IV morphine and 4 milligrams/hour for control dyspnea and restlessness * PRN palliative regimen ordered * 04/28/2025: Discussed care and prognosis with son at bedside (2) Pneumonia: Code(s): J18.9 - Pneumonia, unspecified organism Status: Acute (3) CHF exacerbation: Qualifiers: Heart failure type: unspecified Qualified Code(s): I50.9 - Heart failure, unspecified Code(s): I50.9 - Heart failure, unspecified Status: Acute (4) T2DM (type 2 diabetes mellitus): Qualifiers: Diabetes mellitus fdc insulin use: with terminologist use Diabetes mellitus complication status: without complication Qualified Code(s): E11.9 - Type 2 diabetes mellitus without complications; Z79.4 - terminologist (current) use of insulin Code(s): E11.9 - Type 2 diabetes mellitus without complications Status: Chronic (5) Cellulitis: Code(s): L03.90 - Cellulitis, unspecified Status: Acute
--- NOTE | 2025-04-28 18:55 | PC.NURSE ---
Mapper reviewed Mireille JOVEL's charting and agrees with it.
[2025-04-29] MEDS: GLYCOPYRROLATE INJ (*SP) 0.2 MG/ML VIAL 0.1 MG IV PUSH (01:12)
[2025-04-29] MEDS: MORPHINE SULFATE (*CRX) 4 MG/ML INJ IV PUSH (01:12)
--- NOTE | 2025-04-30 09:55 | P.DN_ITS ---
Discharge Summary Date and Time Date of : 04/29/25 Time of : 03:35 Provider Pronounced By: 2 RNs Name of First RN That Pronounced: Rosangela Nice RN Name of Second RN That Pronounced: Yamila Carrillo Probable Cause of Probable Cause of : Respiratory failure Summary Hospital Course: Admitted to inpatient hospice service for symptom management. Medications titrated to comfort. Mrs. Perry peacefully. Additional Data Confirmation of as documented by pronouncing clinician: Pupillary Reflex, Palpable Pulses, Response to Stimuli, Heart Tones and Breath Sounds Name of Provider Notified: Kosta Time Provider Notified: 03:55 Family Requests Autopsy: No Top Bottom Attaching Machine Operator Notified: Yes Date [facility] Notified of : 04/29/25 Time [facility] Notified of : 04:00
== END 2025-04-29 04:40 | disposition expired | DRG 951 ==
PROVIDERS: Admitting Provider Internal Medicine; Visit Provider Internal Medicine
DX: Z51.5 Encounter for palliative care (principal); J18.0 Bronchopneumonia, unspecified organism; J96.01 Acute respiratory failure with hypoxia; L03.115 Cellulitis of right lower limb; I50.9 Heart failure, unspecified; E11.9 Type 2 diabetes mellitus without complications; W18.30XA Fall on same level, unspecified, initial encounter; S00.83XA Contusion of other part of head, initial encounter
CPT/HCPCS: A9270; J1596; J2270; J3360